=== PATIENT | female | born 1970 | race Caucasian/White ===

== ENCOUNTER 2023-08-13 07:51 | Emergency (ER) | payer OTHER, SELFPAY ==
--- NOTE | ~2023-08-13 | CT_ITS ---
EXAMINATION: CT ABDOMEN AND PELVIS WITH CONTRAST CLINICAL INFORMATION: Abdominal pain and diarrhea COMPARISON: CT abdomen pelvis 12/10/2014 TECHNIQUE: Multidetector volumetric images were obtained from the superior aspect of the liver through the pubic symphysis following administration 85 mL of Omnipaque 350 intravenous contrast. Sagittal and coronal reformatted images were obtained on the technologist's workstation. Oral contrast: No This CT examination was performed using dose optimization techniques as appropriate, variously including the following: *Automated exposure control *Adjustment of mA and/or kV according to patient size (this includes techniques or standardized protocols for targeted exams where dose is matched to indication/reason for exam; i.e. extremities or head) *Use of iterative reconstruction technique DLP: 1326 mGy-cm FINDINGS: LUNG BASES: The visualized lung bases are unremarkable. LIVER, GALLBLADDER, AND BILIARY TREE: The liver is normal in size, shape, and attenuation. There is a small 1 cm water density mass in the right lobe of the liver (502:369) consistent with a benign cyst. No worrisome solid focal hepatic lesion or biliary ductal dilatation is present. The gallbladder is unremarkable with no evidence of radiopaque gallstones, gallbladder wall thickening, or obvious pericholecystic inflammatory changes. PANCREAS: Unremarkable. SPLEEN: Spleen is mildly enlarged at 13 cm. ADRENAL GLANDS: Unremarkable. KIDNEYS AND URETERS: A large staghorn type calculus is present in the left renal pelvis measuring 3.0 x 1.9 x 3.2 cm, extending into the upper pole as well as lower and mid pole infundibula. The calculus is heterogeneous with a higher density center measuring 11r30 Hounsfield units with the majority of the calculus measuring about 460 Hounsfield units but with a higher attenuation rim. There is a rounded 5 mm calculus seen not related to the staghorn in the lower pole. Mild inflammatory changes are seen around the renal pelvis. Some mild fullness of the intrarenal collecting system is noted. No right-sided calculi. There is a probable Bosniak class II lower pole exophytic cortical renal cyst measuring 15-30 Hounsfield units with a tiny punctate area of higher attenuation in the wall (see echavarria image). At the time of the 2014 CT scan this was seen and measured 1.3 cm (601:81). BLADDER: Unremarkable. GASTROINTESTINAL TRACT: The small and large bowel are unremarkable. The appendix is unremarkable. ABDOMINAL WALL: No significant hernia is appreciated. LYMPH NODES: Some small periportal lymph nodes are seen but there is no retroperitoneal lymphadenopathy. VASCULAR: Unremarkable. PELVIC VISCERA: The uterus and adnexa are unremarkable. OSSEOUS STRUCTURES: Unremarkable. CT/CT abdomen pelvis w IV con IMPRESSION: 1. Large staghorn type calculus in the left renal pelvis with some mild inflammatory changes around the renal pelvis and mild fullness of the intrarenal collecting system. 2. Other incidental findings as described above including benign hepatic cyst, mild splenomegaly and Bosniak class II exophytic left lower pole renal cyst which needs no additional imaging or follow-up. Fleischner guidelines were followed.
[2023-08-13 07:59] VITALS: BP 133/70; PULSE 78; RESP 19; TEMP 36.4; O2SAT 99; BMI 44.8
--- NOTE | 2023-08-13 08:20 | ED_ITS ---
HPI - Nausea/Vomiting/Diarrhea General Chief complaint: Nausea/Vomiting/Diarrhea Stated complaint: diarrhea Time Seen by Provider: 08/13/23 08:13 Source: patient Mode of arrival: ambulatory Limitations: no limitations History of Present Illness HPI Narrative: 52 yo female with PMH of prior cardiac repair in 1974 and hx of DM,, HTN, HLD here with c/o n/v x 1 and diarrhea daily since eating curried beef at home her made. no travel, antibiotics, abdominal pain, fevers, bloody stool. She is having 4+ stools a day and canot take it. She has not had this before. MD elicited complaint: nausea, vomiting and diarrhea Onset (ago): day(s) (Thursday ) Description of vomiting: watery Description of diarrhea: watery Associated nausea: Yes Associated abdominal pain: No Location of pain: none Severity: mild Exacerbating factors: eating Relieving factors: none Context: possible food poisoning Associated symptoms: loss of appetite, malaise and nausea/vomiting Related Data Previous Rx's Medication Instructions Recorded cefuroxime axetil 500 mg tablet 500 mg PO BID 7 days #14 tabs 08/13/23 ondansetron 4 mg disintegrating 4 mg PO Q8H PRN nausea and 08/13/23 tablet vomiting #20 tabs Allergies Allergy/AdvReac Type Severity Reaction Status Date / Time FISH Allergy Unknown Anaphylaxis Uncoded 08/13/23 07:59 Review of Systems 2 Review of Systems: Constitutional : No Weight loss, No Fever, No Chills ENT/Mouth : No sore throat, No Rhinorrhea Eyes: No Swelling, No Redness Cardiovascular : No Chest Pain, No SOB, NoEdema Respiratory : No Cough, No Sputum, No Wheezing Gastrointestinal : Positive Nausea, Positive Vomiting, positive Diarrhea, no abdominal Pain, No Hematochezia, No Melena Genitourinary : No Dysuria, No Urinary Frequency, No Hematuria, No Urgency Musculoskeletal : No joint pain, No Myalgias, No Joint Swelling Skin : No Skin Lesions, No rash Neuro : No Weakness, No Numbness, No Dizziness, No Headache Psych : No Anxiety/Panic, No Depression Heme/Lymph: No Bruising, No Lymphadenopathy Endocrine : No Polyuria, No Polydipsia All other systems reviewed and are negative. Gastrointestinal: Gastrointestinal: Reports nausea PMFSH Past Medical History Attestation statement: The following information was validated with the patient. Medical History History of kidney stones History of in vitro fertilization Hx of ectopic Surgical History History of open heart surgery Family History Family History (Updated 10/02/20 @ 16:04 by Delia Hernandez MA) Father Cancer Mother Epilepsia Dementia Brother Drug abuse Bipolar 1 disorder Son No problems noted. Social History Social History (Updated 10/02/20 @ 16:04 by Delia Hernandez MA) Alcohol intake: never Advance Directives: No Physical Exam 2 Vital Signs: Vital Signs: Last Vital Signs Temp 97.5 F 08/13/23 07:59 Pulse 78 08/13/23 07:59 Resp 19 08/13/23 07:59 BP 133/70 08/13/23 07:59 Pulse Ox 99 08/13/23 07:59 O2 Del Method Room Air 08/13/23 07:59 BMI result Body Mass Index 44.8 Appearance: Alert. Oriented X3. No acute distress. Eyes: Pupils equal, round and reactive to light. ENT: Pharynx normal. Neck: Normal inspection. Neck supple. CVS: Normal heart rate and rhythm. Pulses normal. Respiratory: No respiratory distress. Breath sounds normal. Abdomen: Soft and nontender. Skin: Skin warm and dry. Normal skin color. Normal skin turgor. Extremities: No lower extremity edema. No calf ttp Neuro: Oriented X 3. No motor deficit. No sensory deficit. Course Course Course Narrative: CBC is showing signs of dehydration, WBC count likely due to dehydration as all cell lines are elevated - not due to infection or severe sepsis Reevaluation(s) Reevaluation #1: 2L of IVF ordered, staghorn calculus at this time will obtain lactic acid cultures, give IV ceftriaxone - possible infection suspected 1145am. Reevaluation #2: no diarrhea here feels better, tolerating PO, no colitis Medications Administered Discontinued Medications Generic Name Dose Route Start Last Admin Trade Name Freq PRN Reason Stop Dose Admin Famotidine 20 mg 08/13/23 08:36 08/13/23 09:40 Famotidine/Pf 20 Mg/2 Ml Vial IVPUSH 08/13/23 08:37 20 mg ONCE ONE Administration Sodium Chloride 1,000 mls @ 999 mls/hr 08/13/23 08:45 08/13/23 11:32 Ns IVCONT 08/13/23 09:45 Infused .Q1H1M NUBIA Infusion Sodium Chloride 1,000 mls @ 999 mls/hr 08/13/23 09:45 08/13/23 12:18 Ns IV 08/13/23 10:45 Infused .Q1H1M NUBIA Infusion Ceftriaxone Sodium 1 gm/ 50 mls @ 100 mls/hr 08/13/23 11:39 08/13/23 12:55 Sodium Chloride IV 08/13/23 12:08 100 mls/hr ONCE ONE Administration Iohexol 85 ml 08/13/23 10:12 08/13/23 10:13 Iohexol 350 Mg/Ml 100 Ml Infus..Btl IV 08/13/23 10:13 85 ml ONCE ONE Administration Ondansetron HCl 4 mg 08/13/23 08:36 08/13/23 09:38 Ondansetron Hcl 4 Mg/2 Ml Vial IVPUSH 08/13/23 08:37 Not Given ONCE ONE Medical Decision Making Medical Decision Making MDM Narrative: 52 yo female with PMH of prior cardiac repair in 1974 and hx of DM,, HTN, HLD here with c/o diarrhea and n/v after eating curried beef at home no other infectious sources or abx use. Will obtain basic labs, hydrate, CT scan for possible colitis though this should be self limited in non immunocompromised patient and stool studies. No abdominal ttp on exam. 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 08/13/23 09:31 08/13/23 09:31 Labs: Lab Results 08/13/23 08/13/23 08/13/23 Range/Units 09:31 11:48 12:52 WBC 15.0 H (4.8-10.8) X10*3/uL RBC 6.54 H (4.20-5.50) X10*6/uL Hgb 16.2 H (12.0-16.0) g/dl Hct 51.6 H (37.0-47.0) % MCV 78.9 L (80.0-98.0) fL MCH 24.8 L (27.0-33.0) pg MCHC 31.4 (31.0-35.0) g/dl RDW 16.6 H (11.0-16.0) % Plt Count 360 (160-400) X10*3/uL MPV 10.0 (9.4-12.3) fL Immature Gran % (Auto) 0.3 (0.0-0.4) % Neut % (Auto) 80.0 H (45-73) % Lymph % (Auto) 12.6 L (20-40) % [place] % (Auto) 3.4 (2-11) % Eos % (Auto) 3.4 (0-4) % Baso % (Auto) 0.3 (0-2) % Lymph # (Auto) 1.9 (1.2-4.9) X10*3/uL [place] # (Auto) 0.5 (0.1-1.2) X10*3/uL Eos # (Auto) 0.5 H (0.0-0.4) X10*3/uL Baso # (Auto) 0.0 (0.0-0.2) X10*3/uL Abs Immat Gran (auto) 0.05 H (0.00-0.03) X10*3/uL Absolute Neuts (auto) 12.0 H (2.0-8.3) x10*3/uL Absolute Nucleated RBC 0.000 (0.0-0.012) X10*3/uL Nucleated RBC % (auto) 0.0 (0.0-0.2) /100WBC Sodium 139 (135-145) mmol/L Potassium 3.7 (3.3-5.1) mmol/L Chloride 112 H (96-108) mmol/L Carbon Dioxide 19 L (22-29) mmol/L Anion Gap 12 (12-20) BUN 29 H (9-16) mg/dL Creatinine 1.40 (0.5-1.4) mg/dL Estim Creat Clear Calc 63.8 Estimated GFR 39 Random Glucose 191 H (60-115) mg/dL Lactic Acid 1.0 (0.5-2.0) mmol/L Calcium 9.7 (8.4-10.2) mg/dL Magnesium 1.9 (1.6-2.6) mg/dL Total Bilirubin 0.6 (0.0-1.0) mg/dL Direct Bilirubin 0.2 (0.0-0.5) mg/dL AST 11 (5-31) U/L ALT 13 (0-31) U/L Alkaline Phosphatase 115 (39-117) U/L Total Protein 8.2 H (6.5-8.0) g/dL Albumin 4.3 (3.5-5.0) g/dL Lipase 49 (8-78) U/L Urine Color Yellow Urine Appearance Clear Urine pH 5.5 (5.0-9.0) Ur Specific [place] >= 1.030 H (1.005-1.025) Urine Protein 30 (1+) H (Neg-Trace) mg/dL Urine Glucose (UA) Negative (Negative) mg/dL Urine Ketones Negative (Negative) mg/dL Urine Blood Moderate (2+) H (Negative) Urine Nitrite Negative (Negative) Ur Leukocyte Esterase Negative (Negative) Urine RBC 6-10 H (0-2) /HPF Urine WBC 6-10 H (0-5) /HPF Ur Squamous Epith Cells 6-10 (0-2) /HPF Urine Bacteria Trace (None Seen) Hyaline Casts 3-5 (0-2) /LPF Granular Casts Present Independent Interpretation I performed an independent interpretation of an: CT Scan (staghorn no colitis) Radiology Impression Discussion of test interpretation with radiology: I have reviewed the radiologist's reading. External Record Review External record reviewed: Outpatient record Prescription Management I considered prescription management with: Antibiotic and Other Discharge Plan Discharge Clinical Impression: Dehydration, Staghorn calculus, Acute UTI Diarrhea Qualifiers: Diarrhea type: unspecified type Qualified Code(s): R19.7 - Diarrhea, unspecified Patient Disposition: Home, Self-Care Instructions: Kidney Stones (ED), Urinary Tract Infection in Women (DC), Acute Diarrhea (ED) Additional Instructions: take a probiotic over the counter. drink plenty of fluids. bland diet for 48 hours then slowly advance. return for fevers, severe pain, more than 6 loose stools a day, weakness, dizziness, vomiting, or any other concerns. Prescriptions: New cefuroxime axetil 500 mg tablet 500 mg PO BID 7 Days Qty: 14 0RF ondansetron 4 mg tablet,disintegrating 4 mg PO Q8H PRN (Reason: nausea and vomiting) Qty: 20 0RF Referrals: Justo Rodríguez MD [Physician] - (call for appointment please call today to schedule) Stand Alone Forms: Work/School Release
[2023-08-13 09:36] LABS: MANUAL DIFF FLAG NO
[2023-08-13 09:38] LABS: Basophils Percent Auto 0.3 % (0-2); Eosinophils Absolute Auto 0.5 X10*3/uL (0.0-0.4); Eosinophils Percent Auto 3.4 % (0-4); Hematocrit 51.6 % (37.0-47.0); Hemoglobin 16.2 g/dl (12.0-16.0); Imm Gran Abs Auto 0.05 X10*3/uL (0.00-0.03); Imm Gran Pct Auto 0.3 % (0.0-0.4); Lymphocytes Absolute Auto 1.9 X10*3/uL (1.2-4.9); Lymphocytes Percent Auto 12.6 % (20-40); Mean Corpuscular HGB Conc 31.4 g/dl (31.0-35.0); Mean Corpuscular Hemoglobin 24.8 pg (27.0-33.0); Mean Corpuscular Volume 78.9 fL (80.0-98.0); Monocytes Absolute Auto 0.5 X10*3/uL (0.1-1.2); Monocytes Percent Auto 3.4 % (2-11); Platelet Count 360 X10*3/uL (160-400); Red Blood Count 6.54 X10*6/uL (4.20-5.50); Red Cell Distribution Width 16.6 % (11.0-16.0)
[2023-08-13] MEDS: 0.9 % Sodium Chloride 1,000 ML 999 ML IVCONT (09:38)
[2023-08-13] MEDS: Famotidine/PF 20 MG/2 ML VIAL IVPUSH (09:40)
[2023-08-13 10:00] VITALS: BP 138/78; PULSE 67; RESP 20; TEMP 36.9; O2SAT 95
[2023-08-13 10:00] LABS: Alanine Aminotransferase 13 U/L (0-31); Albumin Level 4.3 g/dL (3.5-5.0); Alkaline Phosphatase 115 U/L (39-117); Anion Gap 12 (12-20); Aspartate Amino Transferase 11 U/L (5-31); Bilirubin Direct 0.2 mg/dL (0.0-0.5); Bilirubin Total 0.6 mg/dL (0.0-1.0); Blood Urea Nitrogen 29 mg/dL (9-16); Calcium 9.7 mg/dL (8.4-10.2); Carbon Dioxide 19 mmol/L (22-29); Chloride 112 mmol/L (96-108); Creatinine Clr Calc Pharmacy 63.8; Estimated Glomerular Filt Rate 39; Glucose Random 191 mg/dL (60-115); Lipase 49 U/L (8-78); Magnesium 1.9 mg/dL (1.6-2.6); Potassium 3.7 mmol/L (3.3-5.1); Sodium 139 mmol/L (135-145); Total Protein 8.2 g/dL (6.5-8.0)
[2023-08-13] MEDS: iohexoL 350 MG/ML 100 ML INFUS..BTL 85 ML IV (10:13)
[2023-08-13] MEDS: 0.9 % Sodium Chloride 1,000 ML 999 ML IV (10:31)
[2023-08-13] MEDS: cefTRIAXone sodium 1 GM in 0.9 % Sodium Chloride 50 ML IV (12:55)
[2023-08-13 13:01] LABS: Appearance Urine Clear; Color Urine Yellow; Glucose Urine UA Negative (Negative); Leukocyte Esterase Urine Negative (Negative); Nitrite Urine Negative (Negative); PH 5.5 (5.0-9.0); Specific Gravity - Urine >= 1.030 (1.005-1.025); UMIC TRIGGER UACC YES; Urine Blood Moderate (2+) (Negative); Urine Ketones Negative (Negative); Urine Protein 30 (1+) mg/dL (Neg-Trace)
[2023-08-13 13:11] LABS: Bacteria Urine Trace (None Seen); Granular Casts Urine Present; UACC Culture Trigger YES
[2023-08-13 14:00] VITALS: BP 137/72; PULSE 72; RESP 18; TEMP 36.7; O2SAT 94
== END 2023-08-13 14:12 | disposition home or self-care (01) ==
PROVIDERS: Emergency Provider Emergency Medicine; PCP Internal Medicine
DX: N20.0 Calculus of kidney (principal); N39.0 Urinary tract infection, site not specified; E86.0 Dehydration; R11.2 Nausea with vomiting, unspecified; R19.7 Diarrhea, unspecified; E11.9 Type 2 diabetes mellitus without complications; I10 Essential (primary) hypertension; E78.5 Hyperlipidemia, unspecified
CPT/HCPCS: 36415; 74177; 80048; 80076; 81001; 81003; 83605; 83690; 83735; 85025; 87040; 87086; 87147; 96361; 96365; 96375; 99284; J0696; Q9967

== ENCOUNTER 2023-09-17 13:47 | Outpatient (AMB) | payer OTHER, SELFPAY ==
--- NOTE | 2023-09-17 13:48 | A.OFFVIS_ITS ---
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 09/17/2023? She is present today for an evaluation of renal calculus. The patient has a past medical history of prior cardiac repair in 1974 (She had a hole in the ventricle of her heart that was repaired.), diabetes, hypertension, HLD, and sleep apnea. Patient states that she has a history of kidney stones. She had seen urology Dr. Brown at [facility] in [facility] who treated her right kidney and removed several kidney stones with surgical procedures ureteroscopy. She was seen in ER for acute urinary tract infection on 08/13/2023. She was discharged on antibiotics which helped her. The patient was advised to take probiotic over the counter, drink plenty of fluids, bland diet for 48 hours then slowly advance at that time. She was advised to return for fevers, severe pain, more than 6 loose stools a day, weakness, dizziness, vomiting, or any other concerns during that time. The patient was referred to the urology office. Patient is not on any blood thinners at this time. I reviewed the urine culture results from 08/13/2023 which came back 10,000 to 50,000 cfu/ml mixed bacterial mary and Strep agalactiae (Grp B) < 10,000 cfu/mL. I reviewed the CT abdomen/pelvis results from 08/13/2023 revealed large staghorn type calculus in the left renal pelvis with some mild inflammatory changes around the renal pelvis and mild fullness of the intrarenal collecting system. Other incidental findings as described above including benign hepatic cyst, mild splenomegaly and Bosniak class II exophytic left lower pole renal cyst. Evaluation today?UA? leukocytes: negative; blood: 2 +. Plan: I have discussed treatment options do include ureteroscopy versus PCNL, and I will discuss the CAT scan results with Dr. Bonilla for further surgical management. Patient will need medical clearance from her PCP prior to surgery due to her multiple medical conditions. [facility] Medical History History of kidney stones History of in vitro fertilization Surgical History Hx of ectopic History of open heart surgery Family History Father Cancer Mother Epilepsia Dementia Brother Drug abuse Bipolar 1 disorder Son No problems noted. Alcohol intake: never Patient Tobacco Use Status: Never used Tobacco Review of Systems Const All systems reviewed & are unremarkable except as noted in HPI and below Reports no additional complaints Eyes Reports no additional complaints ENT Reports no additional complaints Card Denies dyspnea Resp Denies cough and Denies dyspnea GI Reports no additional complaints Reports no additional complaints Musc Reports no additional complaints Skin/Breast Denies rash and Denies unusual bruising Neuro Reports no additional complaints Psych Reports no additional complaints Endo Reports no additional complaints Jose/Lymph Reports no additional complaints Aller/Immun Reports no additional complaints Physical Exam Const General: cooperative, healthy appearing and no acute distress Nutritional Appearance: overweight Orientation/consciousness: patient oriented x3 HEENT Head: Yes normal to inspection, Yes normocephalic and Yes atraumatic Eyes Conjunctivae: conjunctivae normal Neck Neck: Yes normal visual inspection and Yes trachea midline Chest Chest palpation & inspection: normal inspection of the chest Resp Effort & Inspection: normal respiratory effort Cardio Rate: regular rate GI Inspection: Yes normal to inspection Skin General skin exam: no rashes or lesions noted Neuro General: patient oriented x3 Extrem General: No edema Psych Appearance: grossly normal Results AMB Urinalysis, Automated UA Leukoctes 0 Luke/uL Last Edit by CECILE Staton on 09/17/23 14:01 UA Nitrite Negative Last Edit by Alberto Garrido [facility] on 09/17/23 14:01 UA Urobilinogen 0.2 mg/dL Last Edit by CECILE Staton on 09/17/23 14:0 1 UA Protein 15 mg/dL Last Edit by Alberto Garrido [facility] on 09/17/23 14:01 UA pH 6.0 Last Edit by Alberto Garrido Sharmila on 09/17/23 14:01 UA Blood 200 Tac[place]/uL Last Edit by Alberto Garrido Sharmila on 09/17/23 14:01 3+ Alberto Garrido 09/17/23 14:01 UA Specific [place] 1.030 Last Edit by CECILE Staton on 09/17/23 14: 01 UA Ketone Negative Last Edit by Alberto Garrido Sharmila on 09/17/23 14:01 UA Bilirubin 0 mg/dL Last Edit by Alberto Garrido Sharmila on 09/17/23 14:01 UA Glucose 0 mg/dL Last Edit by Alberto Garrido [facility] on 09/17/23 14:01 Results Reviewed Results Reviewed: Laboratory Last Values Urine pH (Auto) 6.0 09/17/23 13:49 Specific [place] (Auto) 1.030 09/17/23 13:49 Urine Protein (Auto) 15 mg/dL 09/17/23 13:49 Glucose (UA)(Auto) 0 mg/dL 09/17/23 13:49 Urine Ketones (Auto) Negative 09/17/23 13:49 Urine Blood (Auto) 200 [place]/uL 09/17/23 13:49 Urine Nitrite (Auto) Negative 09/17/23 13:49 Urine Bilirubin (Auto) 0 mg/dL 09/17/23 13:49 Urine Urobilinogen (Auto) 0.2 mg/dL 09/17/23 13:49 Leukocyte Esterase (Auto) 0 Luke/uL 09/17/23 13:49 Date of Service: 08/13/23 EXAMINATION: CT ABDOMEN AND PELVIS WITH CONTRAST CLINICAL INFORMATION: Abdominal pain and diarrhea COMPARISON: CT abdomen pelvis 12/10/2014 FINDINGS: LUNG BASES: The visualized lung bases are unremarkable. LIVER, GALLBLADDER, AND BILIARY TREE: The liver is normal in size, shape, and attenuation. There is a small 1 cm water density mass in the right lobe of the liver (502:369) consistent with a benign cyst. No worrisome solid focal hepatic lesion or biliary ductal dilatation is present. The gallbladder is unremarkable with no evidence of radiopaque gallstones, gallbladder wall thickening, or obvious pericholecystic inflammatory changes. PANCREAS: Unremarkable. SPLEEN: Spleen is mildly enlarged at 13 cm. ADRENAL GLANDS: Unremarkable. KIDNEYS AND URETERS: A large staghorn type calculus is present in the left renal pelvis measuring 3.0 x 1.9 x 3.2 cm, extending into the upper pole as well as lower and mid pole infundibula. The calculus is heterogeneous with a higher density center measuring 11r30 Hounsfield units with the majority of the calculus measuring about 460 Hounsfield units but with a higher attenuation rim. There is a rounded 5 mm calculus seen not related to the staghorn in the lower pole. Mild inflammatory changes are seen around the renal pelvis. Some mild fullness of the intrarenal collecting system is noted. No right-sided calculi. There is a probable Bosniak class II lower pole exophytic cortical renal cyst measuring 15-30 Hounsfield units with a tiny punctate area of higher attenuation in the wall (see echavarria image). At the time of the 2014 CT scan this was seen and measured 1.3 cm (601:81). BLADDER: Unremarkable. GASTROINTESTINAL TRACT: The small and large bowel are unremarkable. The appendix is unremarkable. ABDOMINAL WALL: No significant hernia is appreciated. LYMPH NODES: Some small periportal lymph nodes are seen but there is no retroperitoneal lymphadenopathy. VASCULAR: Unremarkable. PELVIC VISCERA: The uterus and adnexa are unremarkable. OSSEOUS STRUCTURES: Unremarkable. IMPRESSION: 1. Large staghorn type calculus in the left renal pelvis with some mild inflammatory changes around the renal pelvis and mild fullness of the intrarenal collecting system. 2. Other incidental findings as described above including benign hepatic cyst, mild splenomegaly and Bosniak class II exophytic left lower pole renal cyst which needs no additional imaging or follow-up. Ordered: Urine Culture Procedure Result Verified Site Urine Culture Final 08/14/23-1231 Report Result 10,000 to 50,000 cfu/ml Mixed bacterial mary characteristic of urogenital contamination. Organism 1 Strep agalactiae (Grp B) Quant < 10,000 cfu/mL Susc N/A Susceptibility not routinely performed on this isolate Assessment & Plan Assessment & Plan (1) Staghorn calculus: Code(s): N20.0 - Calculus of kidney (2) Kidney stone on left side: Code(s): N20.0 - Calculus of kidney (3) Complex renal cyst: Code(s): N28.1 - Cyst of kidney, acquired Plan I have discussed treatment options do include ureteroscopy versus PCNL, and I will discuss the CAT scan results with Dr. Bonilla for further surgical management. Patient will need medical clearance from her PCP prior to surgery due to her multiple medical conditions. Orders: Orders AMB Urinalysis Automated 09/17/23 Z13.9 - Encounter for screening, unspecified Patient Instructions: The patient had an opportunity to ask questions regarding treatment plan. All questions were answered. Imaging, Laboratory studies and physical exam results were discussed and reviewed in detail. No major barriers to understanding were identified. The patient expressed understanding and agreement with the above t reatment plan. The patient is aware they should contact our office by phone for worsening of their current condition or the appearance of new symptoms. Compliance is encouraged with any medications and followup testing that is ordered. It is a privilege to be allowed the opportunity to participate in the urologic care of your patient. If you have any questions or concerns regarding treatment for the above conditions please do not hesitate to contact me. The office telephone contact is [phone]. This note is constructed in part using voice recognition software. While every effort has been made to ensure accuracy family and consumer science professor errors may have been included. Yours sincerely, Justo Rodríguez MD Coding Level of Care Code New Pt Level 4 (65627) Diagnoses Staghorn calculus N20.0 Kidney stone on left side N20.0 Complex renal cyst N28.1
== END 2023-09-17 14:43 | disposition home or self-care (01) ==
PROVIDERS: PCP Internal Medicine; Visit Provider Urology
DX: N20.0 Calculus of kidney (principal); N28.1 Cyst of kidney, acquired
CPT/HCPCS: 99204

== ENCOUNTER → 2023-09-17 13:47 | Outpatient (BNVA) | payer OTHER, SELFPAY | PROVIDERS: PCP Internal Medicine; Visit Provider Urology | DX: N20.0 Calculus of kidney (principal); N28.1 Cyst of kidney, acquired | CPT/HCPCS: 81003 ==

== ENCOUNTER 2023-10-23 14:47 | Outpatient (AMB) | payer OTHER, SELFPAY ==
--- NOTE | 2023-10-23 15:23 | A.OFFVIS_ITS ---
Intake Intake Visit Reasons: Discuss surgical plan Allergies sulfamethoxazole [From Bactrim] Allergy (Unknown, Verified 09/17/23 13:56) Unknown trimethoprim [From Bactrim] Allergy (Unknown, Verified 09/17/23 13:56) Unknown FISH Allergy (Unknown, Uncoded 08/13/23 07:59) Anaphylaxis HPI HPI Comments History of Present Illness Details Gabriela is a pleasant female. She is a patient of Dr. Dylan Avalos. She is seen for the following urologic conditions - complex nephrolithiasis Here for evaluation of complex left-sided renal stone in setting of extensive medical comorbidities including diabetes, hypertension, sleep apnea Nephrolithiasis Longstanding Multiple procedures with Dr Brown Seen in [place] [facility] room 08/13/23 with pyelonephritis. Treated with antibiotics Imaging 08/15 - large staghorn type calculus in t he left renal pelvis with some mild inflammatory changes around the renal pelvis and mild fullness of the intrarenal collecting system. Other incidental findings as described above including benign hepatic cyst, mild splenomegaly and Bosniak class II exophytic left lower pole renal cyst Discussion regarding procedure. Typically this would be approached with percutaneous nephrolithotomy. Given her body habitus and other medical comorbidities would recommend ureteroscopy and this may require more than 1 potential procedure [facility] Medical History (Updated 12/20/23 @ 20:03 by Dangelo Bonilla MD) HLD (hyperlipidemia) Diabetes HTN (hypertension) Sleep apnea History of kidney stones History of in vitro fertilization Surgical History (Updated 12/17/23 @ 07:56 by Carmenza Saul RN) History of ureteroscopy Hx of ectopic History of open heart surgery Family History Father Cancer Mother Epilepsia Dementia Brother Drug abuse Bipolar 1 disorder Son No problems noted. Social History Alcohol intake: never Patient Tobacco Use Status: Never used Tobacco Review of Systems Const Denies chills and Denies fever(s) Card Reports no additional complaints and Denies syncope Resp Denies cough GI Denies abdominal pain and Denies heartburn Reports as per HPI and Denies change in libido Neuro Denies syncope Psych Denies change in libido Endo Denies change in libido Physical Exam Const General: cooperative, healthy appearing, comfortable and no acute distress Orientation/consciousness: patient oriented x3 HEENT Face and sinus: Yes normal facial exam Mouth: moist mucous membranes Neck Neck: Yes normal visual inspection, Yes full ROM and Yes trachea midline Chest Chest palpation & inspection: normal inspection of the chest Resp Effort & Inspection: normal respiratory effort, able to speak in complete sentences and no respiratory distress GI Inspection: Yes normal to inspection Back/Spine/Pelvis Cervical Spine: normal cervical lordosis Thoracic/Lumbar Spine: thoracic and lumbar spine normal to inspection Skin General skin exam: no rashes or lesions noted Neuro General: patient oriented x3, gait normal, tone normal and moves all extremities Extrem General: Yes normal to inspection and Yes capillary refill normal Assessment & Plan Assessment & Plan (1) Staghorn calculus: Code(s): N20.0 - Calculus of kidney (2) Pyelonephritis: Code(s): N12 - Tubulo-interstitial nephritis, not specified as acute or chronic Plan Risks, benefits and alternatives to therapy were discussed. These include but are not limited to infection, bleeding, damage to local organs and tissues, need for further interventions. Anesthetic risks regarding cardiac arrhythmia, blood clots, and potential mortality were discussed. The patient understands the typical recovery time and the outpatient nature of the procedure. After consideration of these risks the patient gives full informed consent and they wish to move ahead with the procedure. Left ureteroscopy with laser lithotripsy. Possible staged procedure. Suppression antibiotics Patient Instructions: Imaging studies, laboratory and physical exam results were discussed and reviewed in detail. No major barriers to patient understanding were identified. An opportunity to ask questions regarding the treatment plan was provided. All questions were answered. The patient expressed understanding and agreement with the above treatment plan. The patient is aware they should contact our office by phone for worsening of their current condition or the appearance of new urologic symptoms. Compliance is encouraged with any medications and followup testing that is ordered. It is a privilege to participate in the urologic care of your patient. If you have any questions or concerns regarding treatment for the above conditions, or other urologic issues, please do not hesitate to contact me. The office telephone contact is [phone]. This note is constructed using voice recognition software. While every effort has been made to ensure accuracy chief investment officer errors may have been included. Yours sincerely, Dr Dangelo Bonilla MD, [facility] - Urology Providers of Expert, Compassionate Care for the Genitourinary System Coding Level of Care Code Est Pt Level 4 (39975) Diagnoses Staghorn calculus N20.0 Pyelonephritis N12
== END 2023-10-23 15:27 | disposition home or self-care (01) ==
LOC: HO.HUSH 14:47
PROVIDERS: PCP Internal Medicine; Visit Provider Urology
DX: N20.0 Calculus of kidney (principal); N12 Tubulo-interstitial nephritis, not specified as acute or chronic
CPT/HCPCS: 99214

== ENCOUNTER → 2023-10-23 14:47 | Outpatient (BNVA) | payer OTHER, SELFPAY | PROVIDERS: PCP Internal Medicine; Visit Provider Urology ==

== ENCOUNTER 2023-12-28 11:26 | Day surgery (SDC) | payer OTHER, SELFPAY ==
--- NOTE | 2023-12-25 11:45 | HO.ANESPROP2 ---
Documented by User: Gisele Singh NP 12/25/23 11:48 HPI - Anesthesia Eval Consult details Narrative: 53yo F for Bilateral Cystoscopy, Ureteroroscopy, Retro, Laser,with poss stent Medically cleared Anesthesia Pre-Procedure Meds Is the patient on any of the following meds?: Dulaglutide (Trulicity) PMFSH Active Problems Active Problems: All Active Problems (Updated 12/20/23 @ 20:03 by Dangelo Bonilla MD) Pyelonephritis (Acute) Complex renal cyst (Acute) Kidney stone on left side (Acute) Past Medical History Medical History HLD (hyperlipidemia) Diabetes HTN (hypertension) Sleep apnea History of kidney stones History of in vitro fertilization Family History Family History Father Cancer Mother Epilepsia Dementia Brother Drug abuse Bipolar 1 disorder Son No problems noted. Surgical History Surgical History History of ureteroscopy Hx of ectopic History of open heart surgery Social History Social History Alcohol intake: never Patient Tobacco Use Status: Never used Tobacco Use of substances other than those prescribed or required for medical reasons: No Are you DNR?: No Advance Directives: No Advance Directives Information Provided: Yes Meds Allergies Allergy/AdvReac Type Severity Reaction Status Date / Time sulfamethoxazole Allergy Unknown Unknown Verified 12/28/23 12:58 [From Bactrim] trimethoprim [From Bactrim] Allergy Unknown Unknown Verified 12/28/23 12:58 FISH Allergy Unknown Anaphylaxis Uncoded 12/28/23 12:58 Home Medications Medication Instructions Recorded Confirmed Last Taken Type albuterol sulfate 90 mcg/actuation 2 puff inhalation Q4-6H PRN 09/17/23 12/28/23 Unknown History aerosol inhaler (Ventolin HFA) Shortness Of Breath Or Wheezing budesonide-formoterol HFA 160 2 puff inhalation BID 09/17/23 12/28/23 Unknown History mcg-4.5 mcg/actuation aerosol inhaler (Symbicort) citalopram 40 mg tablet 40 mg PO DAILY 09/17/23 12/28/23 Unknown History dulaglutide 1.5 mg/0.5 mL 1.5 mg subcut QWEEK 09/17/23 12/28/23 Unknown History subcutaneous pen injector (Trulicity) lisinopril 20 mg tablet 20 mg PO DAILY 09/17/23 12/28/23 Unknown History meclizine 25 mg tablet 25 mg PO DAILY PRN Vertigo 09/17/23 12/28/23 Unknown History metformin 1,000 mg tablet 1,000 mg PO BID 09/17/23 12/28/23 Unknown History montelukast 10 mg tablet 10 mg PO DAILY 09/17/23 12/28/23 Unknown History norethindrone acetate 5 mg tablet 5 mg PO DAILY 09/17/23 12/28/23 Unknown History simvastatin 40 mg tablet 40 mg PO BEDTIME 09/17/23 12/28/23 Unknown History Exam Pertinent Lab Results Pertinent Lab Results: Laboratory Tests 08/13/23 09:31 WBC 15.0 H Hgb 16.2 H Hct 51.6 H Plt Count 360 Sodium 139 Potassium 3.7 Chloride 112 H Carbon Dioxide 19 L BUN 29 H Creatinine 1.40 Narrative Narrative: EKG 11/2023 SR @ 88 LAFB Low volt RSR' Consider anterior infarct Per provider interpret SR, no acute changes) Assessment and Plan Assessment Anesthesia Assessment: Chart Reviewed Documented by User: Mary Kate Plascencia MD 12/28/23 14:42 HPI - Anesthesia Eval Anesthesia Pre-Procedure Meds If Yes to any meds - educate patient: Pt education - increased risk of aspiration and Pt education - possibility of cancelled proc at provider's discretion PMFSH Past Medical History Medical History HLD (hyperlipidemia) Diabetes HTN (hypertension) Sleep apnea History of kidney stones History of in vitro fertilization Family History Family History Father Cancer Mother Epilepsia Dementia Brother Drug abuse Bipolar 1 disorder Son No problems noted. Family history of problems with anesthesia: No Surgical History Surgical History History of ureteroscopy Hx of ectopic History of open heart surgery History of Problems with Anesthesia: No Social History Social History Alcohol intake: never Patient Tobacco Use Status: Never used Tobacco Use of substances other than those prescribed or required for medical reasons: No Are you DNR?: No Advance Directives: No Advance Directives Information Provided: Yes Meds Allergies Allergy/AdvReac Type Severity Reaction Status Date / Time sulfamethoxazole Allergy Unknown Unknown Verified 12/28/23 12:58 [From Bactrim] trimethoprim [From Bactrim] Allergy Unknown Unknown Verified 12/28/23 12:58 FISH Allergy Unknown Anaphylaxis Uncoded 12/28/23 12:58 Home Medications Medication Instructions Recorded Confirmed Last Taken Type albuterol sulfate 90 mcg/actuation 2 puff inhalation Q4-6H PRN 09/17/23 12/28/23 Unknown History aerosol inhaler (Ventolin HFA) Shortness Of Breath Or Wheezing budesonide-formoterol HFA 160 2 puff inhalation BID 09/17/23 12/28/23 Unknown History mcg-4.5 mcg/actuation aerosol inhaler (Symbicort) citalopram 40 mg tablet 40 mg PO DAILY 09/17/23 12/28/23 Unknown History dulaglutide 1.5 mg/0.5 mL 1.5 mg subcut QWEEK 09/17/23 12/28/23 Unknown History subcutaneous pen injector (Trulicity) lisinopril 20 mg tablet 20 mg PO DAILY 09/17/23 12/28/23 Unknown History meclizine 25 mg tablet 25 mg PO DAILY PRN Vertigo 09/17/23 12/28/23 Unknown History metformin 1,000 mg tablet 1,000 mg PO BID 09/17/23 12/28/23 Unknown History montelukast 10 mg tablet 10 mg PO DAILY 09/17/23 12/28/23 Unknown History norethindrone acetate 5 mg tablet 5 mg PO DAILY 09/17/23 12/28/23 Unknown History simvastatin 40 mg tablet 40 mg PO BEDTIME 09/17/23 12/28/23 Unknown History Exam Airway Mallampati Class: III (thick neck) TM Dist: >3cm Neck ROM: Full Heart: rrr Lungs: cta Assessment and Plan Assessment Anesthesia Assessment: Anesthesia Plan Discussed Final Anesthetic Review Family History of Problems with Anesthesia: No History of Problems with Anesthesia: No NPO: Yes ASA Class: III Final Preanesthetic Review: No Changes in Pt Med Stat, Meds/Allgs Chart Reviewed and Consent Obtained/Reviewed Patient Risk: Intermediate Procedure Risk: Intermediate Anesthetic Plan Anesthetic Plan: GA Disposition: Standard PACU
[2023-12-28] VITALS (10 sets, daily range): BP systolic 142–182; BP diastolic 76–102; PULSE 77–87; RESP 16–20; TEMP 36.1–37.1; O2SAT 92–98; BMI 49.9
--- NOTE | ~2023-12-28 | FL_ITS ---
EXAMINATION: XR FLUOROSCOPY WITH IMAGES CLINICAL INFORMATION: Stone left. COMPARISON: CT abdomen and pelvis of 08/13/2023. TECHNIQUE: Fluoroscopy Supervised By: Dr. Dangelo Bonilla. Fluoroscopy Time: 21.4 seconds. Cumulative Dose: 15.08 mGy. DAP: N/A. Images: 3. FINDINGS: Fluoroscopic guidance was provided for procedure. A catheter is curved over the left mid to lower abdomen proximally with the distal aspect curled over the pelvis. Please refer to operative report for more detailed evaluation. FL/FL guidance in OR IMPRESSION: Fluoroscopic guidance was provided for procedure.
[2023-12-28 13:17] LABS: Glucose, Whole Blood 115 mg/dL (60-115)
[2023-12-28] MEDS: Lactated Ringers 1,000 ML 100 ML IVCONT (13:17)
--- NOTE | 2023-12-28 14:15 | MHC.SHP ---
Pre-Procedural Eval Section A - 24 Hr Update-Section A only Date of Service: 12/28/23 The patient is an INPATIENT: No Changes since office visit: No Cold of Flu in the past 2 weeks, No New Medical Problems, No Changes in Medication and No Patient answered all questions The patient has been examined within 24 hours of the surgical procedure. The History & Physical has been completed within 30 days and I have reviewed it.: No Section B - Complete if H&P > 30 days Chief Complaint: Calculus of kidney Details of Present Illness: Left large renal stone Relevant Family History (Specify if Yes): No Relevant Social History: None Present Medications: see Short Stay Collaborative assessment Medical History: No relevant PMH History of Previous Operations: Relevant previous surgery/procedure and date(s) Allergies: Allergies Allergy/AdvReac Type Severity Reaction Status Date / Time sulfamethoxazole Allergy Unknown Unknown Verified 12/28/23 12:58 [From Bactrim] trimethoprim [From Bactrim] Allergy Unknown Unknown Verified 12/28/23 12:58 FISH Allergy Unknown Anaphylaxis Uncoded 12/28/23 12:58 Review of Systems Sugical H&P ROS: Negative: Constitution, Cardiovascular, Respiratory, Neurological, Psychiatric, Hem-Onc, Allergic/Immunologic, Gastrointestinal, Genitourinary, Musculoskeletal, Integumentary, Endocrine and Eyes/Ears/Nose/Throat Exam Surgical H&P Exam: Normal: HEENT, Normal: Heart, Normal: Lungs, Normal: Extremities, Normal: Abdomen, Normal: Skin and Normal: Neurological Plan Diagnosis/Plan: Unchanged (Cystoscopy, left retrograde, left ureteroscopy with laser lithotripsy and stent placement) I have reviewed the history and physical and performed a pertinent physical examination on my patient. No changes have occurred unless specified. Time Spent With Patient Time: Total time managing care of this patient today ____ minutes.
--- NOTE | 2023-12-28 16:23 | P.OP_ITS ---
Operative Note Operative Note Date of Service: 12/28/23 Narrative: PreOperative Diagnosis: Left staghorn calculus greater than 2.5 cm Post Operative Diagnosis: Left staghorn calculus greater than 2.5 cm Procedure: - cystoscopy, left retrograde - left dilatation of ureteric orifice under fluoroscopy - left ureteroscopy, laser lithotripsy - 22 (200% longer than typical - 90 min vs 30 min) - left stent placement Surgeon: Dr Dangelo Bonilla Anesthesia: General Indications for procedure: Left 2.5 cm staghorn. Previous evaluation with Urology had indicated PCNL. She is over 300 lb and 5 ft 5 so recommend staged procedure with ureteroscopy Procedure: After informed consent was verified patient was brought to the operating placed in supine position. Anesthesia was administered per protocol. Patient was placed in modified dorsal lithotomy position and prepped and draped in a sterile fashion. Safety pause time-out and side of surgery confirmed. Antibiotics confirmed. 22 [place] cystoscope was inserted per urethra. Bladder was normal in its entirety. Both ureteric orifices were in normal position. The left ureteric orifice was cannulated and a retrograde examination was performed. Filling defect left renal pelvis. A Sensor guidewire was placed up to the level of the renal pelvis under fluorosc opy. The rigid cystoscope was removed and the inner cannula of ureteric access sheath was used under fluoroscopy to dilate the ureteric orifice. The ureteric access sheath was placed and the inner cannula with access wire removed. The digital flexible ureteral scope was placed. The disposable digital flexible ureteral scope and the suction sheath were used. The stone was encountered in the renal pelvis. Laser was used using a combination of the 260 and 360 nm holmium laser fiber. Proximally 90 minutes was spent lasering. This is 200% longer than typical. The stone was debulked approximately 85%. At the completion of the stone procedure a Sensor wire was placed back into the renal pelvis. A 6 [place] by 24 cm double-J stent was placed into the renal pelvis and bladder under a combination of fluoroscopy and direct visualization. The symphisis pubis was used as a radiographic marker to release the stent and good coil was seen within the bladder confirming position The bladder was emptied. The patient tolerated the procedure well and was extubated in the operating room, and transferred in stable condition to the recovery area. Pathology: stone debris Drains: stent
[2023-12-28] MEDS: Ketorolac Tromethamine 30 MG/ML VIAL IVPUSH (17:10)
[2023-12-28] MEDS: ondansetron HCL 4 MG/2 ML VIAL IVPUSH (17:10)
[2023-12-28 17:26] LABS: Glucose, Whole Blood 285 mg/dL (60-115)
[2023-12-28] MEDS: Phenazopyridine HCL 100 MG TABLET PO (18:21)
== END 2023-12-28 18:45 | disposition home or self-care (01) ==
PROVIDERS: PCP Internal Medicine; Visit Provider Urology
PROC: (CPT 52356; principal; 2023-12-28 14:10)
DX: N20.0 Calculus of kidney (principal); N12 Tubulo-interstitial nephritis, not specified as acute or chronic; Z87.442 Personal history of urinary calculi; E78.5 Hyperlipidemia, unspecified; I10 Essential (primary) hypertension; G47.30 Sleep apnea, unspecified; E11.9 Type 2 diabetes mellitus without complications; Z79.84 Long term (current) use of oral hypoglycemic drugs; Z79.85 Long-term (current) use of injectable non-insulin antidiabetic drugs; Z79.51 Long term (current) use of inhaled steroids; Z79.899 Other long term (current) drug therapy; Z88.2 Allergy status to sulfonamides; Z88.1 Allergy status to other antibiotic agents; Z98.890 Other specified postprocedural states
CPT/HCPCS: 52356; 82947; C1758; C1769; C2617; J0131; J1580; J1885; J1956; J2250; J2405; J2704; J3010; Q9967

== ENCOUNTER → 2023-12-28 11:26 | Outpatient (BNV) | payer OTHER, SELFPAY | PROVIDERS: PCP Internal Medicine; Visit Provider Urology | DX: N20.0 Calculus of kidney (principal) | CPT/HCPCS: 52356 ==

== ENCOUNTER 2024-01-21 06:44 | Outpatient (REF) | payer OTHER, SELFPAY ==
[2024-01-21 08:07] LABS: Appearance Urine Turbid; Color Urine Yellow; Glucose Urine UA Negative (Negative); Leukocyte Esterase Urine Moderate (2+) (Negative); Nitrite Urine Negative (Negative); PH 5.5 (5.0-9.0); UMIC TRIGGER UA YES; Urine Blood Large (3+) (Negative); Urine Ketones Negative (Negative); Urine Protein 100 (2+) mg/dL (Neg-Trace)
[2024-01-21 08:13] LABS: Bacteria Urine 2+ (None Seen); RBC Urine >20 /HPF (0-2); Squamous Epithelial Cell Urine >20 /HPF (0-2); WBC Urine >50 /HPF (0-5)
== END 2024-01-21 06:45 | disposition home or self-care (01) ==
LOC: HO.LAB 06:44
PROVIDERS: PCP Internal Medicine; Visit Provider Urology
DX: N39.0 Urinary tract infection, site not specified (principal)
CPT/HCPCS: 81001; 87086

== ENCOUNTER 2024-02-08 11:16 | Day surgery (SDC) | payer OTHER, SELFPAY ==
[2023-12-17 08:03] VITALS: BMI 49.1
[2024-02-08] VITALS (7 sets, daily range): BP systolic 156–188; BP diastolic 89–94; PULSE 76–86; RESP 18–22; TEMP 36.1–36.5; O2SAT 93–96; BMI 50.1
--- NOTE | ~2024-02-08 | FL_ITS ---
EXAMINATION: XR FLUOROSCOPY WITH IMAGES CLINICAL INFORMATION: Cystoscopy and left ureteroscopy. COMPARISON: Fluoroscopic guidance dated 01/06/2024; CT abdomen and pelvis dated 08/13/2023. TECHNIQUE: Fluoroscopy Supervised By: Dr. Dangelo Bonilla. Fluoroscopy Time: 47.9 seconds. Cumulative Dose: 38.29 mGy. Images: 5. FINDINGS: The submitted images show a pigtail catheter with tip coiled overlapping the left renal pelvis. A known left staghorn calculus is faintly visualized. On the final image, the catheter is removed. FL/FL guidance in OR IMPRESSION: Intraoperative fluoroscopy is provided during cystoscopy and left ureteroscopy. Please see the patient's Operative Report for full procedural details.
[2024-02-08 13:45] LABS: Glucose, Whole Blood 122 mg/dL (60-115)
[2024-02-08] MEDS: Lactated Ringers 1,000 ML 50 ML IVCONT (14:13)
--- NOTE | 2024-02-08 15:40 | MHC.SHP ---
Pre-Procedural Eval Section A - 24 Hr Update-Section A only Date of Service: 02/08/24 The patient is an INPATIENT: No Changes since office visit: No Cold of Flu in the past 2 weeks, No New Medical Problems, No Changes in Medication and No Patient answered all questions The patient has been examined within 24 hours of the surgical procedure. The History & Physical has been completed within 30 days and I have reviewed it.: No Section B - Complete if H&P > 30 days Chief Complaint: Calculus of kidney Details of Present Illness: Prior left ureteroscopy with laser lithotripsy. Here to remove stent and remove remaining stone. Relevant Social History: None Present Medications: see Short Stay Collaborative assessment Medical History: Significant History History of Previous Operations: Relevant previous surgery/procedure and date(s) Allergies: Allergies Allergy/AdvReac Type Severity Reaction Status Date / Time sulfamethoxazole Allergy Unknown Unknown Verified 12/28/23 12:58 [From Bactrim] trimethoprim [From Bactrim] Allergy Unknown Anaphylaxis Verified 02/08/24 13:31 FISH Allergy Unknown Anaphylaxis Uncoded 12/28/23 12:58 Review of Systems Sugical H&P ROS: Negative: Constitution, Cardiovascular, Respiratory, Neurological, Psychiatric, Hem-Onc, Allergic/Immunologic, Gastrointestinal, Genitourinary, Musculoskeletal, Integumentary, Endocrine and Eyes/Ears/Nose/Throat Exam Surgical H&P Exam: Normal: HEENT, Normal: Heart, Normal: Lungs, Normal: Extremities, Normal: Abdomen, Normal: Skin and Normal: Neurological Plan Diagnosis/Plan: Unchanged (Cystoscopy, left stent removal, left ureteroscopy with laser lithotripsy) I have reviewed the history and physical and performed a pertinent physical examination on my patient. No changes have occurred unless specified. Time Spent With Patient Time: Total time managing care of this patient today ____ minutes.
--- NOTE | 2024-02-08 16:35 | HO.ANESPROP2 ---
HPI - Anesthesia Eval Consult details Narrative: for cysto, retro, laser, stent PMFSH Active Problems Active Problems: All Active Problems (Updated 02/04/24 @ 10:32 by Carmenza Saul, RN) Pyelonephritis (Acute) Complex renal cyst (Acute) Kidney stone on left side (Acute) Past Medical History Medical History (Updated 02/04/24 @ 10:32 by Carmenza Saul RN) Asthma Benign paroxysmal positional vertigo Obesity Cataract CKD (chronic kidney disease) Depression HLD (hyperlipidemia) Diabetes HTN (hypertension) Sleep apnea History of kidney stones History of in vitro fertilization Family History Family History Father Cancer Mother Epilepsia Dementia Brother Drug abuse Bipolar 1 disorder Son No problems noted. Family history of problems with anesthesia: No Surgical History Surgical History (Updated 02/04/24 @ 10:32 by Carmenza Saul RN) H/O breast biopsy History of ureteroscopy Hx of ectopic History of open heart surgery History of Problems with Anesthesia: No Social History Social History Alcohol intake: never Patient Tobacco Use Status: Never used Tobacco Use of substances other than those prescribed or required for medical reasons: No Are you DNR?: No Advance Directives: No Advance Directives Information Provided: Yes Meds Allergies Allergy/AdvReac Type Severity Reaction Status Date / Time sulfamethoxazole Allergy Unknown Unknown Verified 12/28/23 12:58 [From Bactrim] trimethoprim [From Bactrim] Allergy Unknown Anaphylaxis Verified 02/08/24 13:31 FISH Allergy Unknown Anaphylaxis Uncoded 12/28/23 12:58 Active Medications: Current Medications Lactated Ringer's (Lr) 1,000 mls @ 50 mls/hr IVCONT .Q20H NUBIA Last Admin: 02/08/24 14:13 Dose: 50 mls/hr Home Medications Medication Instructions Recorded Confirmed Last Taken Type albuterol sulfate 90 mcg/actuation 2 puff inhalation Q4-6H PRN 09/17/23 02/08/24 Unknown History aerosol inhaler (Ventolin HFA) Shortness Of Breath Or Wheezing budesonide-formoterol HFA 160 2 puff inhalation BID 09/17/23 02/08/24 Unknown History mcg-4.5 mcg/actuation aerosol inhaler (Symbicort) citalopram 40 mg tablet 40 mg PO DAILY 09/17/23 02/08/24 Unknown History dulaglutide 1.5 mg/0.5 mL 1.5 mg subcut QWEEK 09/17/23 02/08/24 01/26/24 History subcutaneous pen injector (Trulicity) lisinopril 20 mg tablet 20 mg PO DAILY 09/17/23 02/08/24 Unknown History meclizine 25 mg tablet 25 mg PO DAILY PRN Vertigo 09/17/23 02/08/24 Unknown History metformin 1,000 mg tablet 1,000 mg PO BID 09/17/23 02/08/24 Unknown History montelukast 10 mg tablet 10 mg PO DAILY 09/17/23 02/08/24 Unknown History norethindrone acetate 5 mg tablet 5 mg PO DAILY 09/17/23 02/08/24 Unknown History simvastatin 40 mg tablet 40 mg PO BEDTIME 09/17/23 02/08/24 Unknown History Exam Height,Weight and Vital Signs: Height 5 ft 5 in Weight 136.531 kg Last Vital Signs Temp 97.5 F 02/08/24 13:43 Pulse 86 02/08/24 13:43 Resp 20 02/08/24 13:43 BP 156/93 H 02/08/24 13:43 Pulse Ox 96 02/08/24 13:43 O2 Del Method Room Air 02/08/24 13:43 Pertinent Lab Results Pertinent Lab Results: Laboratory Tests 02/08/24 13:41 POC Glucose 122 H Airway Mallampati Class: II TM Dist: <=3cm Neck ROM: Limited Loose/Missing/Broken Teeth: Yes, Upper and Lower Heart: ok Lungs: ok. Sat 96% room air Assessment and Plan Assessment Anesthesia Assessment: Anesthesia Plan Discussed and Chart Reviewed Final Anesthetic Review Family History of Problems with Anesthesia: No History of Problems with Anesthesia: No NPO: Yes ASA Class: III Final Preanesthetic Review: No Changes in Pt Med Stat, Meds/Allgs Chart Reviewed, Consent Obtained/Reviewed and Anes Risks/Benef Reviewed Patient Risk: High Procedure Risk: Low Anesthetic Plan Anesthetic Plan: GA and Agree w/ Assess. and Plan Disposition: Standard PACU
[2024-02-08] MEDS: Ketorolac Tromethamine 15 MG/ML VIAL IVPUSH (19:52)
[2024-02-08] MEDS: Phenazopyridine HCL 100 MG TABLET PO (19:53)
--- NOTE | 2024-02-08 22:21 | HO.POSTANES ---
Post Anesthesia Evaluation Post Anesthesia Evaluation Date of Service: 02/08/24 Vital Signs: Vital Signs Temp Pulse Resp BP Pulse Ox O2 Del Method O2 Flow Rate 02/08/24 20:25 97.0 F 76 20 174/94 H 93 Room Air 02/08/24 20:10 79 18 174/90 H 95 Nasal Cannula 2 02/08/24 19:55 79 19 163/93 H 95 Nasal Cannula 2 02/08/24 19:45 79 19 165/90 H 93 Nasal Cannula 2 02/08/24 19:40 97.7 F 84 18 159/89 H 94 Nasal Cannula 2 02/08/24 19:00 80 22 H 188/90 H 95 Nasal Cannula 2 02/08/24 13:43 97.5 F 86 20 156/93 H 96 Room Air Anesthesia: General LMA Mental Status: Awake Pain Control: Satisfactory Nausea/Vomiting: None Hydration: Adequate Anesthesia-Related Issues: No Anes. Related Issues
[2024-02-19 15:52] LABS: Stone Source LEFT RENAL STONE
--- NOTE | 2024-02-26 16:28 | W.PM.OPN ---
Operative Note Operative Note Date of Service: 02/08/24 Narrative: PreOperative Diagnosis: Residual left stone with indwelling ureteric catheter Post Operative Diagnosis: Residual left stone with indwelling ureteric catheter Procedure: - cystoscopy, removal indwelling left stent, left retrograde - left ureteroscopy, laser lithotripsy, stone basketing - modifier 22 300 % longer than typical Surgeon: Dr Dangelo Bonilla Anesthesia: General Indications for procedure: Large left renal stone. Based on body habitus had agreed to staged ureteroscopy. Here for completion procedure with cystoscopy, stent removal, left retrograde with ureteroscopy Procedure: After informed consent was verified patient was brought to the operating placed in supine position. Anesthesia was administered per protocol. Patient was placed in modified dorsal lithotomy position and prepped and draped in a sterile fashion. Safety pause time-out and side of surgery confirmed. Antibiotics confirmed. 22 Croatian cystoscope was inserted per urethra. Bladder was normal in its entirety. Both ureteric orifices were in normal position. Stent emerging from left ureteric orifice. Stent grasped and removed. The left ureteric orifice was cannulated and a retrograde examination was performed. Filling defects seen within the left ureteric orifice. A Sensor guidewire was placed up to the level of the renal pelvis under fluoroscopy. The rigid cystoscope was removed and the inner cannula of ureteric access sheath was used under fluoroscopy to dilate the ureteric orifice. The ureteric access sheath was placed and the inner cannula with access wire removed. The digital disposable flexible ureteral scope was placed. Remnant stone was accessed using the flexible ureteric access sheath. 90 minutes spent breaking remnant stone into small pieces with 260 nm laser fiber - this is proximally 300% longer than typical. Multiple laser fibers used. Fragments were able to be brought to the flexible ureteric sheath opening and using dusting settings broken into small enough pieces to be removed. At the completion of the stone procedure the renal pelvis was irrigated using the open-ended catheter. A decision was made not to leave a stent. The ureteric access sheath was removed. The bladder was emptied. The patient tolerated the procedure well and was extubated in the operating room, and transferred in stable condition to the recovery area. Pathology: Stone debris Drains: None
== END 2024-02-08 20:36 | disposition home or self-care (01) ==
PROVIDERS: PCP Internal Medicine; Visit Provider Urology
PROC: (CPT 52353; principal; 2024-02-08 14:00)
DX: N20.0 Calculus of kidney (principal); Z87.442 Personal history of urinary calculi; Z46.6 Encounter for fitting and adjustment of urinary device; N28.1 Cyst of kidney, acquired; N12 Tubulo-interstitial nephritis, not specified as acute or chronic; I10 Essential (primary) hypertension; E78.5 Hyperlipidemia, unspecified; E11.9 Type 2 diabetes mellitus without complications; G47.30 Sleep apnea, unspecified; K76.89 Other specified diseases of liver; R16.1 Splenomegaly, not elsewhere classified; Z88.2 Allergy status to sulfonamides
CPT/HCPCS: 52353; 82365; 82947; 88300; C1758; C1769; J0131; J1885; J1956; J2405; J2704; J3010; Q9967

== ENCOUNTER → 2024-02-08 11:16 | Outpatient (BNV) | payer OTHER, SELFPAY | PROVIDERS: PCP Internal Medicine; Visit Provider Urology | DX: N20.0 Calculus of kidney (principal) | CPT/HCPCS: 52353; 74420 ==

== ENCOUNTER 2024-03-02 13:10 | Inpatient (IN) | payer OTHER, SELFPAY ==
--- NOTE | ~2024-03-02 | FL_ITS ---
EXAMINATION: XR FLUOROSCOPY WITH IMAGES CLINICAL INFORMATION: Cystography, retrograde, stent placement COMPARISON: CT abdomen from 03/02/2024. TECHNIQUE: Fluoroscopy Supervised By: Dr. Rivera. Fluoroscopy Time: 0.3 min Cumulative Dose: 26.6 mGy. DAP: 0.462 Gycm2. Images: 5. FL/FL guidance in OR FINDINGS AND IMPRESSION: The purpose of this report is to document use of fluoroscopic imaging equipment during the urologic procedures. Cystoscope inserted, iodinated contrast injected into the ureter and into the mildly hydronephrotic kidney, and images obtained at time of a left ureteral stent deployment. The urinary tract stones are better depicted on the recent CT imaging exam.
--- NOTE | ~2024-03-02 | XR_ITS ---
EXAMINATION: XR KNEE, RIGHT CLINICAL INFORMATION: Pain COMPARISON: None available. TECHNIQUE: Two views of the right knee. FINDINGS: Bone alignment is normal. No fracture or dislocation. There may be mild medial femoral tibial joint space narrowing. There is an osteophyte at the quadriceps tendon insertion to the patella. There is a small joint effusion. XR/XR knee RT 2V IMPRESSION: Mild degenerative changes.
--- NOTE | ~2024-03-02 | CT_ITS ---
EXAMINATION: CT ABDOMEN AND PELVIS WITHOUT CONTRAST CLINICAL INFORMATION: Fever after urologic procedure COMPARISON: Cystoscopy and left ureteroscopy 02/08/2024, CT abdomen pelvis 08/13/2023 TECHNIQUE: Multidetector volumetric imaging was performed from the superior aspect of the liver through the pubic symphysis. Sagittal and coronal reformatted images were obtained on the technologist's workstation. This CT examination was performed using dose optimization techniques as appropriate, variously including the following: *Automated exposure control *Adjustment of mA and/or kV according to patient size (this includes techniques or standardized protocols for targeted exams where dose is matched to indication/reason for exam; i.e. extremities or head) *Use of iterative reconstruction technique DLP: 1139 mGy-cm FINDINGS: LUNG BASES: The visualized lung bases are unremarkable. LIVER, GALLBLADDER, AND BILIARY TREE: The liver is normal in size, shape, and attenuation. No focal hepatic lesion or biliary ductal dilatation is present. The gallbladder is unremarkable with no evidence of radiopaque gallstones, gallbladder wall thickening, or obvious pericholecystic inflammatory changes. PANCREAS: Unremarkable. SPLEEN: Unremarkable. ADRENAL GLANDS: Unremarkable. KIDNEYS AND URETERS: Right: At the upper pole the right kidney there is a 1.8 cm benign cyst which needs no additional imaging or follow-up. The kidney otherwise appears unremarkable without stones, hydronephrosis or suspicious masses. The right ureter is nondilated. Left: There is a moderate-sized subcapsular hematoma around the left kidney with a rind as thick as 2 cm. Some blood is also present in the perinephric space. A small bilateral parotid surrounds the proximal left ureter. The left ureter is not dilated. Large staghorn type calculi are present in the left renal pelvis with the largest measuring 2.1 cm there is left-sided pelvocaliectasis and multiple intrarenal nonobstructing calculi present. BLADDER: Unremarkable. GASTROINTESTINAL TRACT: The small and large bowel are unremarkable. The appendix is unremarkable. ABDOMINAL WALL: No significant hernia is appreciated. LYMPH NODES: No retroperitoneal lymphadenopathy. VASCULAR: Unremarkable. PELVIC VISCERA: The uterus and adnexa are unremarkable. OSSEOUS STRUCTURES: Mild degenerative changes are present in the lower thoracic spine. No bony destructive lesions. CT/CT abdomen pelvis wo IV con IMPRESSION: 1. Moderate-sized subcapsular hematoma around the left kidney with some blood in the perinephric space. 2. Large calculi in the left renal pelvis with left-sided pelvocaliectasis and multiple left-sided intrarenal nonobstructing calculi. 3. Other incidental findings as described above. Fleischner guidelines were followed. This critical result was discussed with Dr. Woodruff at 7:39 PM on the day of the exam and it was ascertained that the content and urgency of the report was understood at the time of direct communication.
--- NOTE | ~2024-03-02 | XR_ITS ---
EXAMINATION: XR CHEST CLINICAL INFORMATION: Hypoxia, dyspnea COMPARISON: Frontal view 12/26/19 TECHNIQUE: Upright frontal portable view of the chest was obtained. FINDINGS: There is rotation to the right. There are sternal wires and there are multiple surgical clips. The lowest sternal wire is discontinuous. The cardiac silhouette is mildly prominent similar to previous. The central vessels are prominent. There is a small subsegmental opacity in the periphery of the right midlung. No alveolar edema. No pleural fluid or pneumothorax. There is probable extrapleural thickening possibly due to fat deposition. XR/XR chest 1V IMPRESSION: No acute pneumonia or edema. Previous cardiac surgery
[2024-03-02 14:01] VITALS: BP 154/80; PULSE 108; RESP 18; TEMP 38.1; O2SAT 100; BMI 48.4
--- NOTE | 2024-03-02 14:29 | ED_ITS ---
HPI - Female Genitourinary General Chief complaint: Urogenital-Female Stated complaint: recent surgery, urine in blood, knee pain Time Seen by Provider: 03/02/24 15:47 History of Present Illness HPI Narrative: 53 y/o F patient; PMH cardiac repair 1974, T2DM, HTN, HLD; presents from work with report of hematuria associated with fever. The patient is post cystoscopy and removal of indwelling left ureteral stent on 02/26/[address] Bonilla. She otherwise denies: chest pain, difficulty breathing, cough/congestion, vomiting, diarrhea. Related Data Home Medications ?Medication ?Instructions ?Recorded ?Confirmed albuterol sulfate 90 mcg/actuation 2 puff inhalation Q4-6H PRN 09/17/23 02/08/24 aerosol inhaler (Ventolin HFA) Shortness Of Breath Or Wheezing budesonide-formoterol HFA 160 2 puff inhalation BID 09/17/23 02/08/24 mcg-4.5 mcg/actuation aerosol inhaler (Symbicort) citalopram 40 mg tablet 40 mg PO DAILY 09/17/23 02/08/24 dulaglutide 1.5 mg/0.5 mL 1.5 mg subcut QWEEK 09/17/23 02/08/24 subcutaneous pen injector (Trulicity) lisinopril 20 mg tablet 20 mg PO DAILY 09/17/23 02/08/24 meclizine 25 mg tablet 25 mg PO DAILY PRN Vertigo 09/17/23 02/08/24 metformin 1,000 mg tablet 1,000 mg PO BID 09/17/23 02/08/24 montelukast 10 mg tablet 10 mg PO DAILY 09/17/23 02/08/24 norethindrone acetate 5 mg tablet 5 mg PO DAILY 09/17/23 02/08/24 simvastatin 40 mg tablet 40 mg PO BEDTIME 09/17/23 02/08/24 Previous Rx's ?Medication ?Instructions ?Recorded naproxen 500 mg tablet 500 mg PO BID PRN pain 7 days #14 12/28/23 tabs phenazopyridine 100 mg tablet 100 mg PO TID PRN Spasm 4 days #12 12/28/23 (Pyridium) tabs tamsulosin 0.4 mg capsule 0.4 mg PO BEDTIME 14 days #14 caps 12/28/23 tramadol 50 mg tablet 50 mg PO Q6H PRN pain (scale score 12/28/23 1-3) #8 tabs oxycodone-acetaminophen 5 mg-325 1 tab PO Q4H PRN pain (scale score 02/08/24 mg tablet 4-6) 7 days #6 tabs phenazopyridine 100 mg tablet 100 mg PO TID PRN Spasm 4 days #12 02/08/24 (Pyridium) tabs tamsulosin 0.4 mg capsule 0.4 mg PO BEDTIME 14 days #14 caps 02/08/24 Allergies Allergy/AdvReac Type Severity Reaction Status Date / Time sulfamethoxazole Allergy Mild Hives Verified 03/02/24 14:04 [From Bactrim] trimethoprim [From Bactrim] Allergy Unknown Anaphylaxis Verified 02/08/24 13:31 FISH Allergy Unknown Anaphylaxis Uncoded 12/28/23 12:58 Review of Systems 2 Review of Systems: Yes all other systems are reviewed and are negative PMFSH Past Medical History Attestation statement: The following information was validated with the patient. Source: old records reviewed Medical History Asthma Benign paroxysmal positional vertigo Obesity Cataract CKD (chronic kidney disease) Depression HLD (hyperlipidemia) Diabetes HTN (hypertension) Sleep apnea History of kidney stones History of in vitro fertilization Surgical History H/O breast biopsy History of ureteroscopy Hx of ectopic History of open heart surgery Family History Family History Father Cancer Mother Epilepsia Dementia Brother Drug abuse Bipolar 1 disorder Son No problems noted. Social History Social History Alcohol intake: never Patient Tobacco Use Status: Never used Tobacco Smoked in Last 30 Days: No Use of substances other than those prescribed or required for medical reasons: No Advance Directives: No Advance Directives Information Provided: No Patient : No Physical Exam 2 Vital Signs: Vital Signs: Last Vital Signs Temp 99.1 F 03/02/24 19:37 Pulse 100 03/02/24 19:37 Resp 18 03/02/24 19:37 BP 140/76 H 03/02/24 19:37 Pulse Ox 96 03/02/24 19:37 O2 Del Method Room Air 03/02/24 19:37 BMI result Body Mass Index 48.4 Patient is febrile, tachycardic, normotensive. Const: General: cooperative and no acute distress HEENT: Head: Yes normal to inspection and Yes atraumatic Eyes: General: appearance normal, both eyes and all related structures P upils: Equal, round and reactive pupils present EOM: EOMs intact bilaterally Neck: Neck: Yes normal visual inspection and Yes full ROM Chest: Chest palpation & inspection: normal inspection of the chest and normal palpation of entire chest wall Resp: Effort & Inspection: normal respiratory effort, able to speak in complete sentences, no cough and no respiratory distress Auscultation: clear to auscultation bilaterally Cardio: Rate: tachycardic Rhythm: regular rhythm Peripheral pulses: P eripheral pulses 2+ throughout GI: Palpation (GI): Soft to palpation, not firm, nontender, no guarding and not rigid Auscultation: normal bowel sounds Neuro: Cranial nerves: Yes Equal, round and reactive pupils present Course Course Course Narrative: RME:? 53 yo female hx of asthma, depression, HTN, DM, renal stones, CKD, obesity, BPPV here for eval of hematuria. Endorses cystoscopy 3 weeks ago. Now she endorses blood in her urine along with abdominal pain. Additionally endorses right knee pain and wonders if she may have pulled a muscle. She took Tylenol around 8:00 a.m. this morning. ambulating w/ steady gait. She is hypertensive and febrile, meeting sepsis criteria. Labs, lactate, blood cultures, UA, knee xr ordered. Full HPI, ROS and PE to be performed by the primary ED provider. Reevaluation(s) Reevaluation #1: Patient arrived febrile and tachycardic. Reviewed triage work up - added CT Abdomen/Pelvis W IV Contrast. Provided 1L IVF. CXR unremarkable. UA with evidence of significant glucosuria - POC glucose >300. Added betahydroxybuterate and VBG. UA otherwise without evidence of acute infection. VBG without acidosis. No evidence of DKA or HHS. Placed on insulin sliding scale for hyperglycemia. Cr elevated consistent with EDUARDO. Receiving 1L IVF. CT Abdomen/Pelvis changed to W/O Contrast. Unclear etiology of fever, tachycardia - provided Ceftriaxone 1g IV. CT scan with evidence of moderate size subcapsular hematoma around the left kidney with some blood in the perinephric space. Discussed with urology who will evaluate the patient in the morning. Plan: Admit to hospitalist Condition: Stable Medications Administered Discontinued Medications Generic Name Dose Route Start Last Admin Trade Name Freq PRN Reason Stop Dose Admin Sodium Chloride 1,000 mls @ 999 mls/hr 03/02/24 16:00 03/02/24 18:17 Ns IV 03/02/24 17:00 Infused .Q1H1M NUBIA Infusion Ceftriaxone Sodium 1 gm/ 50 mls @ 100 mls/hr 03/02/24 16:49 03/02/24 18:16 Sodium Chloride IV 03/02/24 17:18 Infused ONCE ONE Infusion Medical Decision Making Lab Data 03/02/24 15:56 03/02/24 15:56 Labs: Lab Results 03/02/24 03/02/24 03/02/24 Range/Units 15:56 16:18 16:46 WBC 18.6 H (4.8-10.8) X10*3/uL RBC 4.66 D (4.20-5.50) X10*6/uL Hgb 11.9 L D (12.0-16.0) g/dl Hct 36.2 L D (37.0-47.0) % MCV 77.7 L (80.0-98.0) fL MCH 25.5 L (27.0-33.0) pg MCHC 32.9 (31.0-35.0) g/dl RDW 13.9 (11.0-16.0) % Plt Count 382 (160-400) X10*3/uL MPV 10.3 (9.4-12.3) fL Immature Gran % (Auto) 0.8 H (0.0-0.4) % Neut % (Auto) 84.6 H (45-73) % Lymph % (Auto) 8.5 L (20-40) % [place] % (Auto) 5.8 (2-11) % Eos % (Auto) 0.1 (0-4) % Baso % (Auto) 0.2 (0-2) % Lymph # (Auto) 1.6 (1.2-4.9) X10*3/uL [place] # (Auto) 1.1 (0.1-1.2) X10*3/uL Eos # (Auto) 0.0 (0.0-0.4) X10*3/uL Baso # (Auto) 0.0 (0.0-0.2) X10*3/uL Abs Immat Gran (auto) 0.15 H (0.00-0.03) X10*3/uL Absolute Neuts (auto) 15.7 H (2.0-8.3) x10*3/uL Absolute Nucleated RBC 0.000 (0.0-0.012) X10*3/uL Nucleated RBC % (auto) 0.0 (0.0-0.2) /100WBC VBG pH (7.32-7.43) VBG pCO2 mmHg VBG pO2 mmHg VBG HCO3 (22-26) mmol/L VBG O2 Saturation % VBG Base Excess mmol/L Sodium 133 L (135-145) mmol/L Potassium 3.7 (3.3-5.1) mmol/L Chloride 98 (96-108) mmol/L Carbon Dioxide 23 (22-29) mmol/L Anion Gap 16 (12-20) BUN 26 H (9-16) mg/dL Creatinine 2.01 H (0.5-1.4) mg/dL Estim Creat Clear Calc 46.0 Estimated GFR 26 POC Glucose 367 H* (60-115) mg/dL Random Glucose 418 H* (60-115) mg/dL Estimat Average Glucose 166 mg/dL Hemoglobin A1c % 7.4 H (<6.0) % Lactic Acid 2.1 H* (0.5-2.0) mmol/L Lactic Acid F/U @ 2Hr (0.5-2.0) mmol/L Calcium 9.3 (8.4-10.2) mg/dL Magnesium 1.9 (1.6-2.6) mg/dL Total Bilirubin 1.1 H (0.0-1.0) mg/dL AST 8 (5-31) U/L ALT 13 (0-31) U/L Alkaline Phosphatase 123 H (39-117) U/L Total Protein 7.7 (6.5-8.0) g/dL Albumin 3.7 (3.5-5.0) g/dL Lipase 20 (8-78) U/L Beta-Hydroxybutyrate 0.06 (0.02-0.27) mmol/L Urine Color Dark Yellow Urine Appearance Turbid Urine pH 5.0 (5.0-9.0) Ur Specific [place] >= 1.030 H (1.005-1.025) Urine Protein 300 (3+) H (Neg-Trace) mg/dL Urine Glucose (UA) >=1000 H (Negative) mg/dL Urine Ketones Trace (Negative) mg/dL Urine Blood Large (3+) H (Negative) Urine Nitrite Negative (Negative) Ur Leukocyte Esterase Trace H (Negative) Urine RBC 6-10 H (0-2) /HPF Urine WBC 0-5 (0-5) /HPF Ur Squamous Epith Cells >20 (0-2) /HPF Urine Bacteria 3+ (None Seen) Hyaline Casts 11-20 (0-2) /LPF 03/02/24 03/02/24 Range/Units 16:48 18:21 WBC (4.8-10.8) X10*3/uL RBC (4.20-5.50) X10*6/uL Hgb (12.0-16.0) g/dl Hct (37.0-47.0) % MCV (80.0-98.0) fL MCH (27.0-33.0) pg MCHC (31.0-35.0) g/dl RDW (11.0-16.0) % Plt Count (160-400) X10*3/uL MPV (9.4-12.3) fL Immature Gran % (Auto) (0.0-0.4) % Neut % (Auto) (45-73) % Lymph % (Auto) (20-40) % [place] % (Auto) (2-11) % Eos % (Auto) (0-4) % Baso % (Auto) (0-2) % Lymph # (Auto) (1.2-4.9) X10*3/uL [place] # (Auto) (0.1-1.2) X10*3/uL Eos # (Auto) (0.0-0.4) X10*3/uL Baso # (Auto) (0.0-0.2) X10*3/uL Abs Immat Gran (auto) (0.00-0.03) X10*3/uL Absolute Neuts (auto) (2.0-8.3) x10*3/uL Absolute Nucleated RBC (0.0-0.012) X10*3/uL Nucleated RBC % (auto) (0.0-0.2) /100WBC VBG pH 7.49 H (7.32-7.43) VBG pCO2 34 mmHg VBG pO2 133 mmHg VBG HCO3 26 (22-26) mmol/L VBG O2 Saturation 99.0 % VBG Base Excess 3.7 mmol/L Sodium (135-145) mmol/L Potassium (3.3-5.1) mmol/L Chloride (96-108) mmol/L Carbon Dioxide (22-29) mmol/L Anion Gap (12-20) BUN (9-16) mg/dL Creatinine (0.5-1.4) mg/dL Estim Creat Clear Calc Estimated GFR POC Glucose (60-115) mg/dL Random Glucose (60-115) mg/dL Estimat Average Glucose mg/dL Hemoglobin A1c % (<6.0) % Lactic Acid (0.5-2.0) mmol/L Lactic Acid F/U @ 2Hr 1.0 (0.5-2.0) mmol/L Calcium (8.4-10.2) mg/dL Magnesium (1.6-2.6) mg/dL Total Bilirubin (0.0-1.0) mg/dL AST (5-31) U/L ALT (0-31) U/L Alkaline Phosphatase (39-117) U/L Total Protein (6.5-8.0) g/dL Albumin (3.5-5.0) g/dL Lipase (8-78) U/L Beta-Hydroxybutyrate (0.02-0.27) mmol/L Urine Color Urine Appearance Urine pH (5.0-9.0) Ur Specific [place] (1.005-1.025) Urine Protein (Neg-Trace) mg/dL Urine Glucose (UA) (Negative) mg/dL Urine Ketones (Negative) mg/dL Urine Blood (Negative) Urine Nitrite (Negative) Ur Leukocyte Esterase (Negative) Urine RBC (0-2) /HPF Urine WBC (0-5) /HPF Ur Squamous Epith Cells (0-2) /HPF Urine Bacteria (None Seen) Hyaline Casts (0-2) /LPF Radiology Impression Discussion of test interpretation with radiology: I have reviewed the radiologist's reading. Radiologist Impression: EXAMINATION: XR KNEE, RIGHT CLINICAL INFORMATION: Pain COMPARISON: None available. TECHNIQUE: Two views of the right knee. FINDINGS: Bone alignment is normal. No fracture or dislocation. There may be mild medial femoral tibial joint space narrowing. There is an osteophyte at the quadriceps tendon insertion to the patella. There is a small joint effusion. XR/XR knee RT 2V IMPRESSION: Mild degenerative changes. EXAMINATION: CT ABDOMEN AND PELVIS WITHOUT CONTRAST CLINICAL INFORMATION: Fever after urologic procedure COMPARISON: Cystoscopy and left ureteroscopy 02/08/2024, CT abdomen pelvis 08/13/2023 TECHNIQUE: Multidetector volumetric imaging was performed from the superior aspect of the liver through the pubic symphysis. Sagittal and coronal reformatted images were obtained on the technologist's workstation. This CT examination was performed using dose optimization techniques as appropriate, variously including the following: *Automated exposure control *Adjustment of mA and/or kV according to patient size (this includes techniques or standardized protocols for targeted exams where dose is matched to indication/reason for exam; i.e. extremities or head) *Use of iterative reconstruction technique DLP: 1139 mGy-cm FINDINGS: LUNG BASES: The visualized lung bases are unremarkable. LIVER, GALLBLADDER, AND BILIARY TREE: The liver is normal in size, shape, and attenuation. No focal hepatic lesion or biliary ductal dilatation is present. The gallbladder is unremarkable with no evidence of radiopaque gallstones, gallbladder wall thickening, or obvious pericholecystic inflammatory changes. PANCREAS: Unremarkable. SPLEEN: Unremarkable. ADRENAL GLANDS: Unremarkable. KIDNEYS AND URETERS: Right: At the upper pole the right kidney there is a 1.8 cm benign cyst which needs no additional imaging or follow-up. The kidney otherwise appears unremarkable without stones, hydronephrosis or suspicious masses. The right ureter is nondilated. Left: There is a moderate-sized subcapsular hematoma around the left kidney with a rind as thick as 2 cm. Some blood is also present in the perinephric space. A small bilateral parotid surrounds the proximal left ureter. The left ureter is not dilated. Large staghorn type calculi are present in the left renal pelvis with the largest measuring 2.1 cm there is left-sided pelvocaliectasis and multiple intrarenal nonobstructing calculi present. BLADDER: Unremarkable. GASTROINTESTINAL TRACT: The small and large bowel are unremarkable. The appendix is unremarkable. ABDOMINAL WALL: No significant hernia is appreciated. LYMPH NODES: No retroperitoneal lymphadenopathy. VASCULAR: Unremarkable. PELVIC VISCERA: The uterus and adnexa are unremarkable. OSSEOUS STRUCTURES: Mild degenerative changes are present in the lower thoracic spine. No bony destructive lesions. CT/CT abdomen pelvis wo IV con IMPRESSION: 1. Moderate-sized subcapsular hematoma around the left kidney with some blood in the perinephric space. 2. Large calculi in the left renal pelvis with left-sided pelvocaliectasis and multiple left-sided intrarenal nonobstructing calculi. 3. Other incidental findings as described above. Discharge Plan Discharge Prescriptions: No Action oxycodone-acetaminophen 5-325 mg tablet 1 tab PO Q4H PRN (Reason: pain (scale score 4-6)) 7 Days Qty: 6 0RF Rx Instructions: Partial Fill upon patient request. tamsulosin 0.4 mg capsule 0.4 mg PO BEDTIME 14 Days Qty: 14 0RF phenazopyridine [Pyridium] 100 mg tablet 100 mg PO TID PRN (Reason: Spasm) 4 Days Qty: 12 0RF tramadol 50 mg tablet 50 mg PO Q6H PRN (Reason: pain (scale score 1-3)) Qty: 8 0RF tamsulosin 0.4 mg capsule 0.4 mg PO BEDTIME 14 Days Qty: 14 0RF phenazopyridine [Pyridium] 100 mg tablet 100 mg PO TID PRN (Reason: Spasm) 4 Days Qty: 12 0RF naproxen 500 mg tablet 500 mg PO BID PRN (Reason: pain) 7 Days Qty: 14 0RF budesonide-formoterol [Symbicort] 160-4.5 mcg/actuation HFA aerosol inhaler 2 puff inhalation BID albuterol sulfate [Ventolin HFA] 90 mcg/actuation HFA aerosol inhaler 2 puff inhalation Q4-6H PRN (Reason: Shortness Of Breath Or Wheezing) metformin 1,000 mg tablet 1,000 mg PO BID meclizine 25 mg tablet 25 mg PO DAILY PRN (Reason: Vertigo) Trulicity 1.5 mg/0.5 mL pen injector 1.5 mg subcut QWEEK montelukast 10 mg tablet 10 mg PO DAILY citalopram 40 mg tablet 40 mg PO DAILY norethindrone acetate 5 mg tablet 5 mg PO DAILY simvastatin 40 mg tablet 40 mg PO BEDTIME lisinopril 20 mg tablet 20 mg PO DAILY Print Language: Turkish
[2024-03-02 15:47] VITALS: BP 143/75; PULSE 117; RESP 24; TEMP 36.4; O2SAT 95
[2024-03-02 16:03] LABS: MANUAL DIFF FLAG NO
[2024-03-02 16:06] LABS: Appearance Urine Turbid; Color Urine Dark Yellow; Glucose Urine UA >=1000 mg/dL (Negative); Leukocyte Esterase Urine Trace (Negative); Nitrite Urine Negative (Negative); Specific Gravity - Urine >= 1.030 (1.005-1.025); UMIC TRIGGER UACC YES; Urine Blood Large (3+) (Negative); Urine Ketones Trace mg/dL (Negative); Urine Protein 300 (3+) mg/dL (Neg-Trace)
[2024-03-02 16:15] LABS: Basophils Percent Auto 0.2 % (0-2); Eosinophils Percent Auto 0.1 % (0-4); Hematocrit 36.2 % (37.0-47.0); Hemoglobin 11.9 g/dl (12.0-16.0); Imm Gran Abs Auto 0.15 X10*3/uL (0.00-0.03); Imm Gran Pct Auto 0.8 % (0.0-0.4); Lymphocytes Absolute Auto 1.6 X10*3/uL (1.2-4.9); Lymphocytes Percent Auto 8.5 % (20-40); Mean Corpuscular HGB Conc 32.9 g/dl (31.0-35.0); Mean Corpuscular Hemoglobin 25.5 pg (27.0-33.0); Mean Corpuscular Volume 77.7 fL (80.0-98.0); Mean Platelet Volume 10.3 fL (9.4-12.3); Monocytes Absolute Auto 1.1 X10*3/uL (0.1-1.2); Monocytes Percent Auto 5.8 % (2-11); Neutrophils Absolute Auto 15.7 x10*3/uL (2.0-8.3); Neutrophils Percent Auto 84.6 % (45-73); Platelet Count 382 X10*3/uL (160-400); Red Blood Count 4.66 X10*6/uL (4.20-5.50); Red Cell Distribution Width 13.9 % (11.0-16.0); White Blood Count 18.6 X10*3/uL (4.8-10.8)
[2024-03-02 16:26] LABS: Bacteria Urine 3+ (None Seen); Squamous Epithelial Cell Urine >20 /HPF (0-2); WBC Urine 0-5 /HPF (0-5)
[2024-03-02 16:28] LABS: Glucose, Whole Blood 367 mg/dL (60-115)
[2024-03-02] MEDS: 0.9 % Sodium Chloride 1,000 ML 999 ML IV (16:42)
--- NOTE | 2024-03-02 16:44 | PC.NURSE ---
labs obtained/sent to lab. IVF administered per provider order.
[2024-03-02 16:50] LABS: Lactic Acid 2.1 mmol/L (0.5-2.0)
[2024-03-02 16:51] LABS: Alanine Aminotransferase 13 U/L (0-31); Albumin Level 3.7 g/dL (3.5-5.0); Alkaline Phosphatase 123 U/L (39-117); Anion Gap 16 (12-20); Aspartate Amino Transferase 8 U/L (5-31); Bilirubin Total 1.1 mg/dL (0.0-1.0); Blood Urea Nitrogen 26 mg/dL (9-16); Calcium 9.3 mg/dL (8.4-10.2); Carbon Dioxide 23 mmol/L (22-29); Chloride 98 mmol/L (96-108); Estimated Glomerular Filt Rate 26; Glucose Random 418 mg/dL (60-115); Lipase 20 U/L (8-78); Magnesium 1.9 mg/dL (1.6-2.6); Potassium 3.7 mmol/L (3.3-5.1); Sodium 133 mmol/L (135-145); Total Protein 7.7 g/dL (6.5-8.0)
[2024-03-02 16:52] LABS: Venous Blood Gas Refer to POC result
[2024-03-02 16:54] LABS: VBG Base Excess 3.7 mmol/L; VBG HCO3 26 mmol/L (22-26); VBG pCO2 34 mmHg; VBG pH 7.49 (7.32-7.43); VBG pO2 133 mmHg
[2024-03-02] MEDS: cefTRIAXone sodium 1 GM in 0.9 % Sodium Chloride 50 ML IV (17:05)
--- NOTE | 2024-03-02 17:05 | PC.NURSE ---
pt remains sinus tachy on the pvc monitor - HR between 100-110 bpm. denies chest pain/palpitations. no sob/wob noted at rest. respirations even and unlabored. IVF continues to infuse at this time. abx administered per provider order. plan of care ongoing. call berry placed within reach.
[2024-03-02 17:25] LABS: Estimated Average Glucose 166 mg/dL; Hemoglobin A1c % 7.4 % (<6.0)
[2024-03-02 18:03] LABS: Reflex Lactate? Lactic Acid Added
[2024-03-02 18:07] LABS: Beta-Hydroxybutyrate 0.06 mmol/L (0.02-0.27)
[2024-03-02 18:18] VITALS: BP 147/76; PULSE 99; RESP 26; TEMP 37.2; O2SAT 94
[2024-03-02 19:37] VITALS: BP 140/76; PULSE 100; RESP 18; TEMP 37.3; O2SAT 96
--- NOTE | 2024-03-02 20:10 | PM.IMHP ---
History of Present Illness Date of Service: 03/02/24 Attending physician on admission: Raven Bauman Chief Complaint: Hematuria, fever Pt is a 53-year-old female with a PMH significant for?HTN, HLD, nephrolithiasis, yrs-[id number] type 2 diabetes, mild intermittent asthma, and right ventricular septal defect s/p repair in 1974 who presents to the ED for evaluation of?left kidney pain and hematuria. On 02/08/2024 patient underwent cystoscopy with removal of residual left stone and ureteral stent by Dr. Bonilla. Since procedure patient has been doing well until she developed LLQ and left flank pain beginning on Thursday-Thursday. Pain has been constant and worsening. Yesterday patient noticed hematuria and a foul-smelling odor in her urine. Has also been feeling diaphoretic though never took temperature at home. Has had 1 episode of nausea and vomiting when she attempted to take Aleve for her symptoms. Pain is particularly noticeable with deep inspiration. Patient also complains of right knee pain that has been ongoing since the beginning of January. Denies any known trauma to the area or recent falls. Did present to [facility] on February 14 with negative workup for acute osseous injury. Was told at the time she likely pulled a muscle. Denies chest pain/pressure, palpitations. No diarrhea. In the ED pt was tachycardic up to 117, tachypneic up to 26, febrile up to 100.5, and hypertensive up to 154/80. Labs were significant for leukocytosis of 18.6, H&H 11.9/36.2, sodium 133, BUN 26, creatinine 2.01, random glucose 418, A1c 7.4, and lactic acid 2.1 with repeat 1.0. UA showing trace leukocyte esterase, proteinuria, glucose >1000, and large amount of urine blood. Right knee x-ray showed mild degenerative changes. CT of abd/pelvis showed moderate size subcapsular hematoma around left kidney with small blood in the perinephric space, large calculi in the left renal pelvis with left-sided pelvocaliectasis and multiple left-sided intrarenal nonobstructing calculi. Pt was treated with IVF, ceftriaxone, and hydromorphone. Pt will be admitted to the hospital for treatment and further evaluation of subcapsular hematoma, hematuria, and sepsis in the setting of likely source. Review of Systems Review of Systems: Left lower quadrant and left flank pain Hematuria Foul-smelling urine Subjective fever and chills Right knee pain x6 weeks No chest pain/pressure, palpitations PMFSH Medical History Asthma Benign paroxysmal positional vertigo Obesity Cataract CKD (chronic kidney disease) Depression HLD (hyperlipidemia) Diabetes HTN (hypertension) Sleep apnea History of kidney stones History of in vitro fertilization Family History Father Cancer Mother Epilepsia Dementia Brother Drug abuse Bipolar 1 disorder Son No problems noted. Surgical History H/O breast biopsy History of ureteroscopy Hx of ectopic History of open heart surgery Social History Alcohol intake: never Patient Tobacco Use Status: Never used Tobacco Smoked in Last 30 Days: No Use of substances other than those prescribed or required for medical reasons: No Advance Directives: No Advance Directives Information Provided: No Patient : No Meds Allergies Allergy/AdvReac Type Severity Reaction Status Date / Time sulfamethoxazole Allergy Mild Hives Verified 03/02/24 14:04 [From Bactrim] trimethoprim [From Bactrim] Allergy Unknown Anaphylaxis Verified 02/08/24 13:31 FISH Allergy Unknown Anaphylaxis Uncoded 12/28/23 12:58 Active Medications: Current Medications Acetaminophen (Acetaminophen 325 Mg Tablet) 650 mg PO Q6H PRN PRN Reason: Pain, Mild (Pain Scale 1-3) Glucose (Glucose Gel 15 Gm Gel..Gram.) 15 gm PO Q15M PRN; Protocol PRN Reason: per Hypoglycemia Standing Ord. Ceftriaxone Sodium 1 gm/ (Sodium Chloride) 50 mls @ 100 mls/hr IV Q24H NUBIA Dextrose (D10) 250 mls @ 750 mls/hr IV Q15M PRN; Protocol PRN Reason: per Hypoglycemia Standing Ord. Insulin Human Lispro (Insulin Lispro 100 Unit/Ml 3 Ml Vial) 0 unit SUBCUT QIDACHS NUBIA; Protocol Melatonin (Melatonin 3 Mg Tablet) 6 mg PO BEDTIME PRN PRN Reason: Insomnia Ondansetron HCl (Ondansetron Hcl 4 Mg/2 Ml Vial) 4 mg IVPUSH Q8H PRN PRN Reason: Nausea and Vomiting Sodium Chloride (0.9 % Sodium Chloride Flush 3 Ml Syringe) 3 ml IVFLUSH QSHIFT [facility] Home Medications ?Medication ?Instructions ?Recorded ?Confirmed ?Last Taken ?Type albuterol sulfate 90 mcg/actuation 2 puff inhalation Q4-6H PRN 09/17/23 03/02/24 Unknown History aerosol inhaler (Ventolin HFA) Shortness Of Breath Or Wheezing budesonide-formoterol HFA 160 2 puff inhalation BID 09/17/23 03/02/24 Unknown History mcg-4.5 mcg/actuation aerosol inhaler (Symbicort) citalopram 40 mg tablet 40 mg PO DAILY 09/17/23 03/02/24 Unknown History lisinopril 20 mg tablet 20 mg PO DAILY 09/17/23 03/02/24 Unknown History meclizine 25 mg tablet 25 mg PO DAILY Vertigo 09/17/23 03/02/24 Unknown History metformin 1,000 mg tablet 1,000 mg PO BID 09/17/23 03/02/24 Unknown History montelukast 10 mg tablet 10 mg PO DAILY 09/17/23 03/02/24 Unknown History norethindrone acetate 5 mg tablet 5 mg PO DAILY 09/17/23 03/02/24 Unknown History simvastatin 40 mg tablet 40 mg PO BEDTIME 09/17/23 03/02/24 Unknown History tirzepatide 7.5 mg/0.5 mL 7.5 mg subcut QWEEK 03/02/24 03/02/24 Unknown History subcutaneous pen injector (Mounjaro) Physical Exam Vital Signs and Narrative: Vital Signs: Last Vital Signs Temp 99.1 F 03/02/24 19:37 Pulse 100 03/02/24 19:37 Resp 18 03/02/24 19:37 BP 140/76 H 03/02/24 19:37 Pulse Ox 96 03/02/24 19:37 O2 Del Method Room Air 03/02/24 19:37 BMI result Body Mass Index 48.4 Constitutional: Alert, in no acute distress. Mental Status: Oriented to person, place and time. Eyes: Pupils are equal, round, and reactive to light. Ear, Nose, and Throat: Oropharynx clear, mucous membranes moist. Ears and nose without deformities. Trachea midline. Respiratory: Clear to auscultation bilaterally. No wheezing, rales, or rhonchi. Cardiovascular: S1, S2, tachy. No murmurs, rubs, or gallops. Gastrointestinal: Abdomen soft, non-distended, with left-sided abd and flank tenderness. Normal bowel sounds. Neurologic: Cranial nerves II-XII are grossly intact bilaterally. No focal neurological deficits. Moves all extremities spontaneously. Skin: Warm, dry. Musculoskeletal: No cyanosis or clubbing. Extremities: No edema. Psychiatric: Normal mood and affect. Results Labs 03/02/24 15:56 03/02/24 15:56 Labs: Laboratory Results - last 24 hr 03/02/24 03/02/24 03/02/24 15:56 16:18 16:46 MCV 77.7 L MCH 25.5 L MCHC 32.9 RDW 13.9 Plt Count 382 MPV 10.3 Immature Gran % (Auto) 0.8 H Neut % (Auto) 84.6 H Lymph % (Auto) 8.5 L [place] % (Auto) 5.8 Eos % (Auto) 0.1 Baso % (Auto) 0.2 Lymph # (Auto) 1.6 [place] # (Auto) 1.1 Eos # (Auto) 0.0 Baso # (Auto) 0.0 Abs Immat Gran (auto) 0.15 H Absolute Neuts (auto) 15.7 H Absolute Nucleated RBC 0.000 Nucleated RBC % (auto) 0.0 VBG pH VBG pCO2 VBG pO2 VBG HCO3 VBG O2 Saturation VBG Base Excess Anion Gap 16 Estim Creat Clear Calc 46.0 Estimated GFR 26 POC Glucose 367 H* Random Glucose 418 H* Estimat Average Glucose 166 Hemoglobin A1c % 7.4 H Lactic Acid 2.1 H* Lactic Acid F/U @ 2Hr Calcium 9.3 Magnesium 1.9 Total Bilirubin 1.1 H AST 8 ALT 13 Alkaline Phosphatase 123 H Total Protein 7.7 Albumin 3.7 Lipase 20 Beta-Hydroxybutyrate 0.06 Urine Color Dark Yellow Urine Appearance Turbid Urine pH 5.0 Ur Specific Millen >= 1.030 H Urine Protein 300 (3+) H Urine Glucose (UA) >=1000 H Urine Ketones Trace Urine Blood Large (3+) H Urine Nitrite Negative Ur Leukocyte Esterase Trace H Urine RBC 6-10 H Urine WBC 0-5 Ur Squamous Epith Cells >20 Urine Bacteria 3+ Hyaline Casts 11-20 03/02/24 03/02/24 16:48 18:21 MCV MCH MCHC RDW Plt Count MPV Immature Gran % (Auto) Neut % (Auto) Lymph % (Auto) [place] % (Auto) Eos % (Auto) Baso % (Auto) Lymph # (Auto) [place] # (Auto) Eos # (Auto) Baso # (Auto) Abs Immat Gran (auto) Absolute Neuts (auto) Absolute Nucleated RBC Nucleated RBC % (auto) VBG pH 7.49 H VBG pCO2 34 VBG pO2 133 VBG HCO3 26 VBG O2 Saturation 99.0 VBG Base Excess 3.7 Anion Gap Estim Creat Clear Calc Estimated GFR POC Glucose Random Glucose Estimat Average Glucose Hemoglobin A1c % Lactic Acid Lactic Acid F/U @ 2Hr 1.0 Calcium Magnesium Total Bilirubin AST ALT Alkaline Phosphatase Total Protein Albumin Lipase Beta-Hydroxybutyrate Urine Color Urine Appearance Urine pH Ur Specific Millen Urine Protein Urine Glucose (UA) Urine Ketones Urine Blood Urine Nitrite Ur Leukocyte Esterase Urine RBC Urine WBC Ur Squamous Epith Cells Urine Bacteria Hyaline Casts Imaging Radiologist's Impressions: Impressions Knee X-Ray 03/02/24 15:27 IMPRESSION: Mild degenerative changes. Abdomen/Pelvis CT 03/02/24 17:45 IMPRESSION: 1. Moderate-sized subcapsular hematoma around the left kidney with some blood in the perinephric space. 2. Large calculi in the left renal pelvis with left-sided pelvocaliectasis and multiple left-sided intrarenal nonobstructing calculi. 3. Other incidental findings as described above. Fleischner guidelines were followed. This critical result was discussed with Dr. Woodruff at 7:39 PM on the day of the exam and it was ascertained that the content and urgency of the report was understood at the time of direct communication. Assessment and Plan (1) Perinephric hematoma: Status: Acute (2) EDUARDO (acute kidney injury): Status: Acute Plan Pt is a 53-year-old female with a PMH significant for?HTN, HLD, nephrolithiasis, hda-olflufe-ddyecxhaj type 2 diabetes, mild intermittent asthma, and right ventricular septal defect s/p repair in 1974 who presents to the ED for evaluation of?left kidney pain and hematuria. Pt will be admitted to the hospital for treatment and further evaluation of subcapsular hematoma, hematuria, and sepsis in the setting of likely source. Hematuria Patient with left flank pain, hematuria, foul-smelling urine x2-3 days Pt had cystoscopy and removal left ureteral stent on 02/08/2024 CT of abd/pelvis with moderate sized sub capsular hematoma around left kidney with some blood in the perinephric space, and large calculi and left renal pelvis Analgesics for pain management NPO after midnight for possible urology procedure tomorrow Urology consult Likely UTI with sepsis Pt with left flank pain, hematuria, foul-smelling urine Pt meets sepsis criteria: Tachycardia, tachypnea, leukocytosis; lactic acid 2.1 with repeat 1.0 Patient received IVF and started on broad-spectrum antibiotics in the ED Will treat with ceftriaxone, started 03/02/2024 Follow cultures EDUARDO Creatinine 2.01, up from 1.40 on 08/13/2023 In the setting of above Pt received IVF in the ED Will place on maintenance fluids Follow BMP Right knee pain Ongoing since beginning january Denies any known trauma to the area or recent falls Workup at [facility] on negative for acute injury, diagnosed as a pulled muscle XR here showed mild degenerative disease F/U outpatient Mild intermittent asthma Not in acute exacerbation Continue home inhalers HTN Hold lisinopril due to EDUARDO Non-insulin type 2 diabetes Hold metformin SSI, diabetic diet HLD Continue statin Mood disorder Continue home meds OBesity class III Weight loss encouraged Full Code Attending:?Dr. Bauman DVT Prophylaxis: Pneumatic boots d/t hematuria Pt will require a hospitalization of at least two nights for treatment of?subcapsular hematoma, hematuria, and sepsis in the setting of likely UTI. Patient will require hospitalization for the administration of IV antibiotics, IV fluids, close monitoring of labs, and specialist consultation with Urology. Quality Stroke Does the patient have a stroke diagnosis?: No VTE Prior VTE?: No VTE Risk Level:: Medical - moderate - high VTE Device Contraindication: N/A - Device Ordered VTE Drug Contraindication: Treatment Not Indicated
[2024-03-02 20:16] LABS: Glucose, Whole Blood 266 mg/dL (60-115)
[2024-03-02 20:19] VITALS: BP 125/70; PULSE 96; RESP 17; TEMP 37.1; O2SAT 99
[2024-03-02] MEDS: Insulin Regular, Human 100 UNIT/ML 3 ML VIAL IVPUSH (20:28)
[2024-03-02] MEDS: HYDROmorphone HCl 0.5 MG/0.5 ML SYRINGE IVPUSH (20:28)
[2024-03-02] MEDS: ondansetron HCL 4 MG/2 ML VIAL IVPUSH (20:28)
--- NOTE | 2024-03-02 20:28 | PHA.MEDREC ---
Pharmacy Consult ? Medication Reconciliation Pharmacy has completed the medication reconciliation. Spoke with patient who stated she is no longer on trulicity, she is on Mounjaro but also admits to not taking it for some time as she has not felt well.
--- NOTE | 2024-03-02 20:51 | PC.NURSE ---
Assumed care of pt at 1900. PT a/ox4, in no acute distress. Skin pwd, vss, pt reporting 8/10 knee and flank pain. POC 266. administered medication as per JAN. Plan for pt to be admitted.
[2024-03-02 21:51] LABS: Glucose, Whole Blood 237 mg/dL (60-115)
[2024-03-02 22:10] VITALS: BP 137/81; PULSE 106; RESP 20; TEMP 36.8; O2SAT 94
[2024-03-02] MEDS: Insulin Lispro 100 UNIT/ML 3 ML VIAL SUBCUT (22:47)
[2024-03-02] MEDS: 0.9 % Sodium Chloride 1,000 ML 100 ML IVCONT (22:49)
[2024-03-03] VITALS (14 sets, daily range): BP systolic 105–142; BP diastolic 56–76; PULSE 79–122; RESP 15–24; TEMP 35.9–36.6; O2SAT 89–96
[2024-03-03] MEDS: Morphine Sulfate 4 MG/ML CARTRIDGE IVPUSH (00:40)
[2024-03-03] MEDS: HYDROmorphone HCl 1 MG/ML SYRINGE IVPUSH ×2 (04:01→08:45)
[2024-03-03 06:56] LABS: MANUAL DIFF FLAG NO
[2024-03-03 07:05] LABS: Basophils Absolute Auto 0.1 X10*3/uL (0.0-0.2); Basophils Percent Auto 0.3 % (0-2); Eosinophils Percent Auto 0.1 % (0-4); Hematocrit 34.6 % (37.0-47.0); Hemoglobin 11.2 g/dl (12.0-16.0); Imm Gran Abs Auto 0.14 X10*3/uL (0.00-0.03); Imm Gran Pct Auto 0.8 % (0.0-0.4); Lymphocytes Absolute Auto 1.3 X10*3/uL (1.2-4.9); Lymphocytes Percent Auto 7.4 % (20-40); Mean Corpuscular HGB Conc 32.4 g/dl (31.0-35.0); Mean Corpuscular Hemoglobin 25.9 pg (27.0-33.0); Mean Corpuscular Volume 80.1 fL (80.0-98.0); Mean Platelet Volume 10.6 fL (9.4-12.3); Monocytes Absolute Auto 1.2 X10*3/uL (0.1-1.2); Monocytes Percent Auto 6.6 % (2-11); Neutrophils Absolute Auto 15.2 x10*3/uL (2.0-8.3); Neutrophils Percent Auto 84.8 % (45-73); Platelet Count 316 X10*3/uL (160-400); Red Blood Count 4.32 X10*6/uL (4.20-5.50)
[2024-03-03 07:28] LABS: Glucose, Whole Blood 225 mg/dL (60-115)
[2024-03-03 07:29] LABS: Anion Gap 14 (12-20); Blood Urea Nitrogen 25 mg/dL (9-16); Carbon Dioxide 25 mmol/L (22-29); Chloride 103 mmol/L (96-108); Creatinine Clr Calc Pharmacy 50.2; Estimated Glomerular Filt Rate 29; Glucose Random 225 mg/dL (60-115); Potassium 3.5 mmol/L (3.3-5.1); Sodium 138 mmol/L (135-145)
[2024-03-03] MEDS: Fluticasone/Vilanterol 200/25 BLST.W.DEV 1 PUFF INHALE (07:50)
[2024-03-03] MEDS: Escitalopram Oxalate 20 MG TABLET PO (08:35)
[2024-03-03] MEDS: Meclizine HCl 25 MG TABLET PO (08:35)
[2024-03-03] MEDS: Montelukast Sodium 10 MG TABLET PO (08:35)
[2024-03-03] MEDS: 0.9 % Sodium Chloride 1,000 ML 125 ML IVCONT (08:39)
[2024-03-03] MEDS: Insulin Lispro 100 UNIT/ML 3 ML VIAL SUBCUT ×4 (08:39→22:47)
--- NOTE | 2024-03-03 09:41 | P.PNIM_ITS ---
Subjective Subjective Date of Service: 03/03/24 Interval History: T 100.5 yesterday afternoon severe L flank pain NPO Review of Systems Review of Systems: Yes all other systems are reviewed and are negative Physical Exam 2 Vital Signs: Vital Signs: Last Vital Signs Temp 97.8 F 03/03/24 07:14 Pulse 122 H 03/03/24 07:53 Resp 16 03/03/24 07:53 BP 141/73 H 03/03/24 07:14 Pulse Ox 92 03/03/24 07:14 O2 Del Method Room Air 03/03/24 07:14 BMI result Body Mass Index 48.4 Gen: in pain HEENT: sclera anicteric, moist mucus membranes Neck: supple Lungs: clear to auscultation bilaterally Heart: regular, tachycardic, no murmurs Abd: soft, non-tender, non-distended, obese : L CVAT Ext: no edema Skin: warm/well-perfused Neuro: alert and oriented x3, no focal findings Psych: appropriate affect Objective Data Active Medications Acetaminophen (Acetaminophen 325 Mg Tablet) 650 mg PO Q6H PRN PRN Reason: Pain, Mild (Pain Scale 1-3) Albuterol Sulfate (Albuterol Sulfate 90 Mcg 8 Gm Inhaler) 2 puff INHALE RQ4H PRN PRN Reason: Shortness Of Breath Or Wheezing Escitalopram Oxalate (Escitalopram Oxalate 20 Mg Tablet) 20 mg PO DAILY COUNT INCLUDES THE [facility] Last Admin: 03/03/24 08:35 Dose: 20 mg Documented By: MARIBELL Fluticasone/Vilanterol (Fluticasone/Vilanterol 200/25 Blst.W.Dev) 1 puff INHALE DAILY COUNT INCLUDES THE [facility] Last Admin: 03/03/24 07:50 Dose: 1 puff Documented By: ESSIE Glucose (Glucose Gel 15 Gm Gel..Gram.) 15 gm PO Q15M PRN; Protocol PRN Reason: per Hypoglycemia Standing Ord. Hydromorphone HCl (Hydromorphone Hcl 1 Mg/Ml Syringe) 1 mg IVPUSH Q4H PRN; Protocol PRN Reason: severe pain Last Admin: 03/03/24 08:45 Dose: 1 mg Documented By: MARIBELL Ceftriaxone Sodium 1 gm/ (Sodium Chloride) 50 mls @ 100 mls/hr IV Q24H COUNT INCLUDES THE [facility] Dextrose (D10) 250 mls @ 750 mls/hr IV Q15M PRN; Protocol PRN Reason: per Hypoglycemia Standing Ord. Sodium Chloride (Ns) 1,000 mls @ 125 mls/hr IVCONT .Q8H COUNT INCLUDES THE [facility] Last Admin: 03/03/24 08:39 Dose: 125 mls/hr Documented By: MARIBELL Insulin Human Lispro (Insulin Lispro 100 Unit/Ml 3 Ml Vial) 0 unit SUBCUT QIDACHS COUNT INCLUDES THE [facility]; Protocol Last Admin: 03/03/24 08:39 Dose: 4 unit Documented By: MARIBELL Meclizine HCl (Meclizine Hcl 25 Mg Tablet) 25 mg PO DAILY COUNT INCLUDES THE [facility] Last Admin: 03/03/24 08:35 Dose: 25 mg Documented By: MARIBELL Melatonin (Melatonin 3 Mg Tablet) 6 mg PO BEDTIME PRN PRN Reason: Insomnia Montelukast Sodium (Montelukast Sodium 10 Mg Tablet) 10 mg PO DAILY COUNT INCLUDES THE [facility] Last Admin: 03/03/24 08:35 Dose: 10 mg Documented By: MARIBELL Non-Formulary Medication (Norethindrone Acetate) 5 mg PO DAILY COUNT INCLUDES THE [facility] Ondansetron HCl (Ondansetron Hcl 4 Mg/2 Ml Vial) 4 mg IVPUSH Q8H PRN PRN Reason: Nausea and Vomiting Sodium Chloride (0.9 % Sodium Chloride Flush 3 Ml Syringe) 3 ml IVFLUSH QSHIFT COUNT INCLUDES THE [facility] Last Admin: 03/03/24 07:34 Dose: Not Given Documented By: MARIBELL Non-Admin Reason: IV Running Labs 03/03/24 06:53 03/03/24 06:53 Labs: Laboratory Results - last 24 hr 03/02/24 03/02/24 03/02/24 15:56 16:18 16:46 MCV 77.7 L MCH 25.5 L MCHC 32.9 RDW 13.9 Plt Count 382 MPV 10.3 Immature Gran % (Auto) 0.8 H Neut % (Auto) 84.6 H Lymph % (Auto) 8.5 L Lamb % (Auto) 5.8 Eos % (Auto) 0.1 Baso % (Auto) 0.2 Lymph # (Auto) 1.6 Lamb # (Auto) 1.1 Eos # (Auto) 0.0 Baso # (Auto) 0.0 Abs Immat Gran (auto) 0.15 H Absolute Neuts (auto) 15.7 H Absolute Nucleated RBC 0.000 Nucleated RBC % (auto) 0.0 VBG pH VBG pCO2 VBG pO2 VBG HCO3 VBG O2 Saturation VBG Base Excess Anion Gap 16 Estim Creat Clear Calc 46.0 Estimated GFR 26 POC Glucose 367 H* Random Glucose 418 H* Estimat Average Glucose 166 Hemoglobin A1c % 7.4 H Lactic Acid 2.1 H* Lactic Acid F/U @ 2Hr Calcium 9.3 Magnesium 1.9 Total Bilirubin 1.1 H AST 8 ALT 13 Alkaline Phosphatase 123 H Total Protein 7.7 Albumin 3.7 Lipase 20 Beta-Hydroxybutyrate 0.06 Urine Color Dark Yellow Urine Appearance Turbid Urine pH 5.0 Ur Specific [place] >= 1.030 H Urine Protein 300 (3+) H Urine Glucose (UA) >=1000 H Urine Ketones Trace Urine Blood Large (3+) H Urine Nitrite Negative Ur Leukocyte Esterase Trace H Urine RBC 6-10 H Urine WBC 0-5 Ur Squamous Epith Cells >20 Urine Bacteria 3+ Hyaline Casts 11-20 03/02/24 03/02/24 03/02/24 16:48 18:21 20:12 MCV MCH MCHC RDW Plt Count MPV Immature Gran % (Auto) Neut % (Auto) Lymph % (Auto) Lamb % (Auto) Eos % (Auto) Baso % (Auto) Lymph # (Auto) Lamb # (Auto) Eos # (Auto) Baso # (Auto) Abs Immat Gran (auto) Absolute Neuts (auto) Absolute Nucleated RBC Nucleated RBC % (auto) VBG pH 7.49 H VBG pCO2 34 VBG pO2 133 VBG HCO3 26 VBG O2 Saturation 99.0 VBG Base Excess 3.7 Anion Gap Estim Creat Clear Calc Estimated GFR POC Glucose 266 H Random Glucose Estimat Average Glucose Hemoglobin A1c % Lactic Acid Lactic Acid F/U @ 2Hr 1.0 Calcium Magnesium Total Bilirubin AST ALT Alkaline Phosphatase Total Protein Albumin Lipase Beta-Hydroxybutyrate Urine Color Urine Appearance Urine pH Ur Specific [place] Urine Protein Urine Glucose (UA) Urine Ketones Urine Blood Urine Nitrite Ur Leukocyte Esterase Urine RBC Urine WBC Ur Squamous Epith Cells Urine Bacteria Hyaline Casts 03/02/24 03/03/24 03/03/24 21:46 06:53 07:13 MCV 80.1 MCH 25.9 L MCHC 32.4 RDW 14.0 Plt Count 316 MPV 10.6 Immature Gran % (Auto) 0.8 H Neut % (Auto) 84.8 H Lymph % (Auto) 7.4 L Lamb % (Auto) 6.6 Eos % (Auto) 0.1 Baso % (Auto) 0.3 Lymph # (Auto) 1.3 Lamb # (Auto) 1.2 Eos # (Auto) 0.0 Baso # (Auto) 0.1 Abs Immat Gran (auto) 0.14 H Absolute Neuts (auto) 15.2 H Absolute Nucleated RBC 0.000 Nucleated RBC % (auto) 0.0 VBG pH VBG pCO2 VBG pO2 VBG HCO3 VBG O2 Saturation VBG Base Excess Anion Gap 14 Estim Creat Clear Calc 50.2 Estimated GFR 29 POC Glucose 237 H 225 H Random Glucose 225 H Estimat Average Glucose Hemoglobin A1c % Lactic Acid Lactic Acid F/U @ 2Hr Calcium 9.0 Magnesium Total Bilirubin AST ALT Alkaline Phosphatase Total Protein Albumin Lipase Beta-Hydroxybutyrate Urine Color Urine Appearance Urine pH Ur Specific [place] Urine Protein Urine Glucose (UA) Urine Ketones Urine Blood Urine Nitrite Ur Leukocyte Esterase Urine RBC Urine WBC Ur Squamous Epith Cells Urine Bacteria Hyaline Casts Impressions Knee X-Ray 03/02/24 15:27 IMPRESSION: Mild degenerative changes. Abdomen/Pelvis CT 03/02/24 17:45 IMPRESSION: 1. Moderate-sized subcapsular hematoma around the left kidney with some blood in the perinephric space. 2. Large calculi in the left renal pelvis with left-sided pelvocaliectasis and multiple left-sided intrarenal nonobstructing calculi. 3. Other incidental findings as described above. Fleischner guidelines were followed. This critical result was discussed with Dr. Woodruff at 7:39 PM on the day of the exam and it was ascertained that the content and urgency of the report was understood at the time of direct communication. Assessment and Plan (1) Perinephric hematoma: Status: Acute (2) EDUARDO (acute kidney injury): Status: Acute (3) Pyelonephritis: Status: Acute Plan 53yo F with HTN, HLD, DM2, asthma, VSD s/p repair, nephrolithiasis s/p lithotripsy/stenting for staghorn calculus 12/28/23, stent removal/lithotripsy 02/08/24 presenting with hematuria and L flank pain, found to have subcapsular hematoma, persistent renal calculi, and sepsis due to pyleonephritis pyelonephritis - ceftriaxone 03/02-, follow BCx/UCx nephrolithiasis subcapsular hematoma - IV fluids, IV hydromorphone, Urology consult, NPO for operative intervention, avoid heparin EDUARDO/CKD2 - SCr improving, continue IV isotonic saline + hold lisinopril HTN - holding lisinopril as above HLD - statin DM2 with hyperglycemia - A1c 7.4, increase correction-dose lispro R knee pain - likely from arthritis; analgesi as above moderate persistent asthma not in acute exac - conitnue home inhalers mood disorder - escitalopram morbid obesity - diet/exercise counseling VTE ppx - SCDs dispo - eventually home In my clinical judgment, the patient requires continued inpatient hospitalization for the following reasons: IV ABX, operative intervention Total time managing care of this patient today: 45 minutes. Quality Stroke Does the patient have a stroke diagnosis?: No VTE Prior VTE?: No VTE Risk Level:: Medical - moderate - high VTE Device Contraindication: N/A - Device Ordered VTE Drug Contraindication: Treatment Not Indicated
[2024-03-03 11:01] LABS: Glucose, Whole Blood 237 mg/dL (60-115)
--- NOTE | 2024-03-03 16:03 | MHC.CM.PN ---
PT REPORTS SHE LIVES WITH HER AND KIDS, AND IS INDEPENDENT WITH CARE SHE HAS NO SERVICES, NO DME AND WORKS AT [facility] – [place], [place] SHE DECLINES TO COMPLETE A HCP PCP: CINDA GALVEZ DCP: HOME NO SERVICES VIA PRIVATE TRANSPORT
[2024-03-03 16:28] LABS: Glucose, Whole Blood 233 mg/dL (60-115)
[2024-03-03 16:37] LABS: B Type Natriuretic Peptide 471 pg/mL (<100)
[2024-03-03 16:38] LABS: Glucose, Whole Blood 231 mg/dL (60-115)
[2024-03-03] MEDS: Acetaminophen 325 MG TABLET 650 MG PO (16:42)
[2024-03-03] MEDS: cefTRIAXone sodium 2 GM in 0.9 % Sodium Chloride 50 ML IV (16:57)
[2024-03-03] MEDS: Furosemide 40 MG/4 ML VIAL IVPUSH (17:00)
[2024-03-03 17:22] LABS: Hemoglobin 10.9 g/dl (12.0-16.0); Mean Corpuscular HGB Conc 32.1 g/dl (31.0-35.0); Mean Corpuscular Hemoglobin 25.7 pg (27.0-33.0); Mean Corpuscular Volume 80.2 fL (80.0-98.0); Mean Platelet Volume 10.1 fL (9.4-12.3); Platelet Count 330 X10*3/uL (160-400); Red Blood Count 4.24 X10*6/uL (4.20-5.50); Red Cell Distribution Width 14.3 % (11.0-16.0); White Blood Count 20.3 X10*3/uL (4.8-10.8)
[2024-03-03 17:24] LABS: Venous Blood Gas Refer to POC result
[2024-03-03 17:25] LABS: VBG Base Excess -0.5 mmol/L; VBG HCO3 25 mmol/L (22-26); VBG pCO2 45 mmHg; VBG pH 7.35 (7.32-7.43); VBG pO2 95 mmHg
[2024-03-03 17:34] LABS: Lactic Acid 0.9 mmol/L (0.5-2.0)
[2024-03-03 17:37] LABS: Anion Gap 13 (12-20); Blood Urea Nitrogen 30 mg/dL (9-16); Calcium 9.2 mg/dL (8.4-10.2); Carbon Dioxide 24 mmol/L (22-29); Chloride 105 mmol/L (96-108); Creatinine Clr Calc Pharmacy 44.4; Estimated Glomerular Filt Rate 25; Glucose Random 257 mg/dL (60-115); Potassium 4.1 mmol/L (3.3-5.1); Sodium 138 mmol/L (135-145)
--- NOTE | 2024-03-03 18:05 | PC.NURSE ---
Took over care of this pt at ~1500. Pt drowsy, reported feeling extra tired . Noted to be desating on RA 86-88%. Dr. Gamble notified and placed on 2L NC sats up to 92%. Pt also very diaphoretic, red in the face. No fever noted. Labs and CXR ordered and placed on telemetry. Decision made to tx pt to [facility] [place]. Report called to soil field technician Celina. Transported to [id number] with soil field technicianDNANY Castle and DANNY Mendoza.
--- NOTE | 2024-03-03 18:32 | P.CNUR_ITS ---
History of Present Illness Consult details Consult date: 03/03/24 Narrative: h/o Left staghorn calculus. The patient had ureteroscopy on 02/26/2024. She presented with left flank pain, fever. CT imaging notes subcapsular hematoma. Comobidity, diabetes, morbid obesity. Review of Systems 2 Review of Systems: Yes all other systems are reviewed and are negative Constitutional: Constitutional: Reports no additional constitutional complaints Eyes: Eyes: Reports no additional eye complaints ENT: Reports system reviewed and no additional complaints, except as documented Cardiovascular: Cardiovascular: Reports no additional cardiovascular complaints Respiratory: Respiratory: Reports no additional respiratory complaints Gastrointestinal: Gastrointestinal: Reports no additional gastrointestinal complaints Genitourinary: Genitourinary: Reports as per HPI Musculoskeletal: Musculoskeletal: Reports no additional musculoskeletal complaints Integumentary/Breasts: Skin/Breast: Reports system reviewed and no additional complaints, except as docu Neurologic: Reports system reviewed and no additional complaints, except as documented Psychiatric: Psychiatric: Reports no additional psychiatric complaints Endocrine: Endocrine: Reports no additional endocrine complaints Hematologic/Lymphatic: Hematologic/Lymphatic: Reports no additional hematologic/lymphatic complaints Allergic/Immunologic: Allergic/Immunologic: Reports no additional allergic/immunologic complaints [facility] Past Medical History Medical History Asthma Benign paroxysmal positional vertigo Obesity Cataract CKD (chronic kidney disease) Depression HLD (hyperlipidemia) Diabetes HTN (hypertension) Sleep apnea History of kidney stones History of in vitro fertilization Family History Family History Father Cancer Mother Epilepsia Dementia Brother Drug abuse Bipolar 1 disorder Son No problems noted. Surgical History Surgical History H/O breast biopsy History of ureteroscopy Hx of ectopic History of open heart surgery Social History Social History Household Members: Spouse and Children Housing: House Do you presently have visiting nurse or other home services: No Alcohol intake: never Patient Tobacco Use Status: Never used Tobacco service: No Meds Allergies Allergy/AdvReac Type Severity Reaction Status Date / Time sulfamethoxazole Allergy Mild Hives Verified 03/02/24 14:04 [From Bactrim] trimethoprim [From Bactrim] Allergy Unknown Anaphylaxis Verified 02/08/24 13:31 FISH Allergy Unknown Anaphylaxis Uncoded 12/28/23 12:58 Active Medications: Current Medications Acetaminophen (Acetaminophen 325 Mg Tablet) 650 mg PO Q6H PRN PRN Reason: Pain, Mild (Pain Scale 1-3) Last Admin: 03/03/24 16:42 Dose: 650 mg Albuterol Sulfate (Albuterol Sulfate 90 Mcg 8 Gm Inhaler) 2 puff INHALE RQ4H PRN PRN Reason: Shortness Of Breath Or Wheezing Escitalopram Oxalate (Escitalopram Oxalate 20 Mg Tablet) 20 mg PO DAILY [facility] Last Admin: 03/03/24 08:35 Dose: 20 mg Fluticasone/Vilanterol (Fluticasone/Vilanterol 200/25 Blst.W.Dev) 1 puff INHALE DAILY [facility] Last Admin: 03/03/24 07:50 Dose: 1 puff Glucose (Glucose Gel 15 Gm Gel..Gram.) 15 gm PO Q15M PRN; Protocol PRN Reason: per Hypoglycemia Standing Ord. Hydromorphone HCl (Hydromorphone Hcl 1 Mg/Ml Syringe) 1 mg IVPUSH Q4H PRN; Protocol PRN Reason: severe pain Last Admin: 03/03/24 08:45 Dose: 1 mg Dextrose (D10) 250 mls @ 750 mls/hr IV Q15M PRN; Protocol PRN Reason: per Hypoglycemia Standing Ord. Sodium Chloride (Ns) 1,000 mls @ 125 mls/hr IVCONT .Q8H [facility] Last Admin: 03/03/24 16:52 Dose: Not Given Ceftriaxone Sodium 2 gm/ (Sodium Chloride) 50 mls @ 100 mls/hr IV Q24H [facility] Last Infusion: 03/03/24 17:35 Dose: Infused Insulin Human Lispro (Insulin Lispro 100 Unit/Ml 3 Ml Vial) 0 unit SUBCUT QIDACHS [facility]; Protocol Last Admin: 03/03/24 16:59 Dose: 6 unit Meclizine HCl (Meclizine Hcl 25 Mg Tablet) 25 mg PO DAILY [facility] Last Admin: 03/03/24 08:35 Dose: 25 mg Melatonin (Melatonin 3 Mg Tablet) 6 mg PO BEDTIME PRN PRN Reason: Insomnia Montelukast Sodium (Montelukast Sodium 10 Mg Tablet) 10 mg PO DAILY [facility] Last Admin: 03/03/24 08:35 Dose: 10 mg Non-Formulary Medication (Norethindrone Acetate) 5 mg PO DAILY [facility] Ondansetron HCl (Ondansetron Hcl 4 Mg/2 Ml Vial) 4 mg IVPUSH Q8H PRN PRN Reason: Nausea and Vomiting Sodium Chloride (0.9 % Sodium Chloride Flush 3 Ml Syringe) 3 ml IVFLUSH QSHIFT [facility] Last Admin: 03/03/24 16:47 Dose: Not Given Home Medications ?Medication ?Instructions ?Recorded ?Confirmed ?Last Taken ?Type albuterol sulfate 90 mcg/actuation 2 puff inhalation Q4-6H PRN 09/17/23 03/02/24 Unknown History aerosol inhaler (Ventolin HFA) Shortness Of Breath Or Wheezing budesonide-formoterol HFA 160 2 puff inhalation BID 09/17/23 03/02/24 Unknown History mcg-4.5 mcg/actuation aerosol inhaler (Symbicort) citalopram 40 mg tablet 40 mg PO DAILY 09/17/23 03/02/24 Unknown History lisinopril 20 mg tablet 20 mg PO DAILY 09/17/23 03/02/24 Unknown History meclizine 25 mg tablet 25 mg PO DAILY Vertigo 09/17/23 03/02/24 Unknown History metformin 1,000 mg tablet 1,000 mg PO BID 09/17/23 03/02/24 Unknown History montelukast 10 mg tablet 10 mg PO DAILY 09/17/23 03/02/24 Unknown History norethindrone acetate 5 mg tablet 5 mg PO DAILY 09/17/23 03/02/24 Unknown History simvastatin 40 mg tablet 40 mg PO BEDTIME 09/17/23 03/02/24 Unknown History tirzepatide 7.5 mg/0.5 mL 7.5 mg subcut QWEEK 03/02/24 03/02/24 Unknown History subcutaneous pen injector (Edison) Physical Exam 2 Vital Signs: Vital Signs: Last Vital Signs Temp 97.6 F 03/03/24 15:45 Pulse 110 H 03/03/24 15:45 Resp 24 H 03/03/24 15:45 BP 114/76 03/03/24 15:45 Pulse Ox 93 03/03/24 15:45 O2 Del Method Nasal Cannula 03/03/24 15:45 O2 Flow Rate 2 03/03/24 15:45 BMI result Body Mass Index 48.4 Const: General: cooperative, healthy appearing, no acute distress and diaphoretic Nutritional Appearance: obese Orientation/consciousness: p atient oriented x3 HEENT: Head: Yes normal to inspection, Yes normocephalic and Yes atraumatic Eyes: Conjunctivae: conjunctivae normal Neck: Neck: Yes normal visual inspection and Yes trachea midline Chest: Chest palpation & inspection: normal inspection of the chest Resp: Effort & Inspection: normal respiratory effort Cardio: Rate: regular rate GI: Inspection: Yes normal to inspection Palpation (GI): Soft to palpation : General: Yes CVA tenderness (left) Back/Spine/Pelvis: Back: CVA tenderness (left) Skin: General skin exam: no rashes or lesions noted Neuro: General: patient oriented x3 Psych: Appearance: grossly normal Results Labs 03/03/24 17:14 03/03/24 17:14 Labs: Abnormal lab results 03/02/24 03/02/24 03/03/24 Range/Units 20:12 21:46 06:53 WBC 18.0 H (4.8-10.8) X10*3/uL Hgb 11.2 L (12.0-16.0) g/dl Hct 34.6 L (37.0-47.0) % MCH 25.9 L (27.0-33.0) pg Immature Gran % (Auto) 0.8 H (0.0-0.4) % Neut % (Auto) 84.8 H (45-73) % Lymph % (Auto) 7.4 L (20-40) % Abs Immat Gran (auto) 0.14 H (0.00-0.03) X10*3/uL Absolute Neuts (auto) 15.2 H (2.0-8.3) x10*3/uL BUN 25 H (9-16) mg/dL Creatinine 1.84 H (0.5-1.4) mg/dL POC Glucose 266 H 237 H (60-115) mg/dL Random Glucose 225 H (60-115) mg/dL B-Natriuretic Peptide (<100) pg/mL 03/03/24 03/03/24 03/03/24 Range/Units 07:13 10:52 16:05 WBC (4.8-10.8) X10*3/uL Hgb (12.0-16.0) g/dl Hct (37.0-47.0) % MCH (27.0-33.0) pg Immature Gran % (Auto) (0.0-0.4) % Neut % (Auto) (45-73) % Lymph % (Auto) (20-40) % Abs Immat Gran (auto) (0.00-0.03) X10*3/uL Absolute Neuts (auto) (2.0-8.3) x10*3/uL BUN (9-16) mg/dL Creatinine (0.5-1.4) mg/dL POC Glucose 225 H 237 H (60-115) mg/dL Random Glucose (60-115) mg/dL B-Natriuretic Peptide 471 H (<100) pg/mL 03/03/24 03/03/24 03/03/24 Range/Units 16:07 16:24 17:14 WBC 20.3 H (4.8-10.8) X10*3/uL Hgb 10.9 L (12.0-16.0) g/dl Hct 34.0 L (37.0-47.0) % MCH 25.7 L (27.0-33.0) pg Immature Gran % (Auto) (0.0-0.4) % Neut % (Auto) (45-73) % Lymph % (Auto) (20-40) % Abs Immat Gran (auto) (0.00-0.03) X10*3/uL Absolute Neuts (auto) (2.0-8.3) x10*3/uL BUN 30 H (9-16) mg/dL Creatinine 2.08 H (0.5-1.4) mg/dL POC Glucose 233 H 231 H (60-115) mg/dL Random Glucose 257 H (60-115) mg/dL B-Natriuretic Peptide (<100) pg/mL Short CBC 03/03/24 03/03/24 Range/Units 06:53 17:14 WBC 18.0 H 20.3 H (4.8-10.8) X10*3/uL Hgb 11.2 L 10.9 L (12.0-16.0) g/dl Hct 34.6 L 34.0 L (37.0-47.0) % Plt Count 316 330 (160-400) X10*3/uL BMP 03/03/24 03/03/24 06:53 17:14 Sodium 138 138 Potassium 3.5 4.1 Chloride 103 105 Carbon Dioxide 25 24 BUN 25 H 30 H Creatinine 1.84 H 2.08 H Calcium 9.0 9.2 Urine 03/02/24 Range/Units 15:56 Urine Color Dark Yellow Urine Appearance Turbid Urine pH 5.0 (5.0-9.0) Ur Specific [place] >= 1.030 H (1.005-1.025) Urine Protein 300 (3+) H (Neg-Trace) mg/dL Urine Glucose (UA) >=1000 H (Negative) mg/dL Imaging Abdomen CT scan report/results: report reviewed and image reviewed CT scan - pelvis: report reviewed and image reviewed Additional studies: Date of Service: 03/02/24 EXAMINATION: CT ABDOMEN AND PELVIS WITHOUT CONTRAST CLINICAL INFORMATION: Fever after urologic procedure COMPARISON: Cystoscopy and left ureteroscopy 02/08/2024, CT abdomen pelvis 08/13/2023 TECHNIQUE: Multidetector volumetric imaging was performed from the superior aspect of the liver through the pubic symphysis. Sagittal and coronal reformatted images were obtained on the technologist's workstation. This CT examination was performed using dose optimization techniques as appropriate, variously including the following: *Automated exposure control *Adjustment of mA and/or kV according to patient size (this includes techniques or standardized protocols for targeted exams where dose is matched to indication/reason for exam; i.e. extremities or head) *Use of iterative reconstruction technique DLP: 1139 mGy-cm FINDINGS: LUNG BASES: The visualized lung bases are unremarkable. LIVER, GALLBLADDER, AND BILIARY TREE: The liver is normal in size, shape, and attenuation. No focal hepatic lesion or biliary ductal dilatation is present. The gallbladder is unremarkable with no evidence of radiopaque gallstones, gallbladder wall thickening, or obvious pericholecystic inflammatory changes. PANCREAS: Unremarkable. SPLEEN: Unremarkable. ADRENAL GLANDS: Unremarkable. KIDNEYS AND URETERS: Right: At the upper pole the right kidney there is a 1.8 cm benign cyst which needs no additional imaging or follow-up. The kidney otherwise appears unremarkable without stones, hydronephrosis or suspicious masses. The right ureter is nondilated. Left: There is a moderate-sized subcapsular hematoma around the left kidney with a rind as thick as 2 cm. Some blood is also present in the perinephric space. A small bilateral parotid surrounds the proximal left ureter. The left ureter is not dilated. Large staghorn type calculi are present in the left renal pelvis with the largest measuring 2.1 cm there is left-sided pelvocaliectasis and multiple intrarenal nonobstructing calculi present. BLADDER: Unremarkable. GASTROINTESTINAL TRACT: The small and large bowel are unremarkable. The appendix is unremarkable. ABDOMINAL WALL: No significant hernia is appreciated. LYMPH NODES: No retroperitoneal lymphadenopathy. VASCULAR: Unremarkable. PELVIC VISCERA: The uterus and adnexa are unremarkable. OSSEOUS STRUCTURES: Mild degenerative changes are present in the lower thoracic spine. No bony destructive lesions. IMPRESSION: 1. Moderate-sized subcapsular hematoma around the left kidney with some blood in the perinephric space. 2. Large calculi in the left renal pelvis with left-sided pelvocaliectasis and multiple left-sided intrarenal nonobstructing calculi. 3. Other incidental findings as described above. Assessment and Plan (1) Perinephric hematoma: Status: Acute (2) EDUARDO (acute kidney injury): Status: Acute (3) Pyelonephritis: Status: Acute (4) Staghorn calculus: Status: Inactive (5) Septic shock due to urinary tract infection: Status: Acute Plan cystoscopy left ureteral stent Procedures Date of Service Date of Service: 03/03/24
--- NOTE | 2024-03-03 20:10 | HO.ANESPROP2 ---
HPI - Anesthesia Eval Consult details Narrative: Left ureter obstruction bvy stone PMFSH Active Problems Active Problems: All Active Problems Septic shock due to urinary tract infection (Acute) Perinephric hematoma (Acute) Hyperglycemia (Acute) EDUARDO (acute kidney injury) (Acute) Pyelonephritis (Acute) Complex renal cyst (Acute) Kidney stone on left side (Acute) Past Medical History Medical History Asthma Benign paroxysmal positional vertigo Obesity Cataract CKD (chronic kidney disease) Depression HLD (hyperlipidemia) Diabetes HTN (hypertension) Sleep apnea History of kidney stones History of in vitro fertilization Family History Family History Father Cancer Mother Epilepsia Dementia Brother Drug abuse Bipolar 1 disorder Son No problems noted. Family history of problems with anesthesia: No Surgical History Surgical History H/O breast biopsy History of ureteroscopy Hx of ectopic History of open heart surgery History of Problems with Anesthesia: No Social History Social History Household Members: Spouse and Children Housing: House Do you presently have visiting nurse or other home services: No Alcohol intake: never Patient Tobacco Use Status: Never used Tobacco service: No Meds Allergies Allergy/AdvReac Type Severity Reaction Status Date / Time sulfamethoxazole Allergy Mild Hives Verified 03/02/24 14:04 [From Bactrim] trimethoprim [From Bactrim] Allergy Unknown Anaphylaxis Verified 02/08/24 13:31 FISH Allergy Unknown Anaphylaxis Uncoded 12/28/23 12:58 Active Medications: Current Medications Acetaminophen (Acetaminophen 325 Mg Tablet) 650 mg PO Q6H PRN PRN Reason: Pain, Mild (Pain Scale 1-3) Last Admin: 03/03/24 16:42 Dose: 650 mg Albuterol Sulfate (Albuterol Sulfate 90 Mcg 8 Gm Inhaler) 2 puff INHALE RQ4H PRN PRN Reason: Shortness Of Breath Or Wheezing Escitalopram Oxalate (Escitalopram Oxalate 20 Mg Tablet) 20 mg PO DAILY NUBIA Last Admin: 03/03/24 08:35 Dose: 20 mg Fluticasone/Vilanterol (Fluticasone/Vilanterol 200/25 Blst.W.Dev) 1 puff INHALE DAILY [facility] [place] Last Admin: 03/03/24 07:50 Dose: 1 puff Glucose (Glucose Gel 15 Gm Gel..Gram.) 15 gm PO Q15M PRN; Protocol PRN Reason: per Hypoglycemia Standing Ord. Hydromorphone HCl (Hydromorphone Hcl 1 Mg/Ml Syringe) 1 mg IVPUSH Q4H PRN; Protocol PRN Reason: severe pain Last Admin: 03/03/24 08:45 Dose: 1 mg Dextrose (D10) 250 mls @ 750 mls/hr IV Q15M PRN; Protocol PRN Reason: per Hypoglycemia Standing Ord. Sodium Chloride (Ns) 1,000 mls @ 125 mls/hr IVCONT .Q8H [facility] [place] Last Admin: 03/03/24 16:52 Dose: Not Given Ceftriaxone Sodium 2 gm/ (Sodium Chloride) 50 mls @ 100 mls/hr IV Q24H [facility] [place] Last Infusion: 03/03/24 17:35 Dose: Infused Gentamicin Sulfate 160 mg/ (Sodium Chloride) 104 mls @ 100 mls/hr IV ONCE ONE Stop: 03/03/24 20:18 Insulin Human Lispro (Insulin Lispro 100 Unit/Ml 3 Ml Vial) 0 unit SUBCUT QIDACHS [facility] [place]; Protocol Last Admin: 03/03/24 16:59 Dose: 6 unit Meclizine HCl (Meclizine Hcl 25 Mg Tablet) 25 mg PO DAILY [facility] [place] Last Admin: 03/03/24 08:35 Dose: 25 mg Melatonin (Melatonin 3 Mg Tablet) 6 mg PO BEDTIME PRN PRN Reason: Insomnia Montelukast Sodium (Montelukast Sodium 10 Mg Tablet) 10 mg PO DAILY [facility] [place] Last Admin: 03/03/24 08:35 Dose: 10 mg Non-Formulary Medication (Norethindrone Acetate) 5 mg PO DAILY [facility] [place] Ondansetron HCl (Ondansetron Hcl 4 Mg/2 Ml Vial) 4 mg IVPUSH Q8H PRN PRN Reason: Nausea and Vomiting Sodium Chloride (0.9 % Sodium Chloride Flush 3 Ml Syringe) 3 ml IVFLUSH QSHIFT [facility] [place] Last Admin: 03/03/24 16:47 Dose: Not Given Home Medications ?Medication ?Instructions ?Recorded ?Confirmed ?Last Taken ?Type albuterol sulfate 90 mcg/actuation 2 puff inhalation Q4-6H PRN 09/17/23 03/02/24 Unknown History aerosol inhaler (Ventolin HFA) Shortness Of Breath Or Wheezing budesonide-formoterol HFA 160 2 puff inhalation BID 09/17/23 03/02/24 Unknown History mcg-4.5 mcg/actuation aerosol inhaler (Symbicort) citalopram 40 mg tablet 40 mg PO DAILY 09/17/23 03/02/24 Unknown History lisinopril 20 mg tablet 20 mg PO DAILY 09/17/23 03/02/24 Unknown History meclizine 25 mg tablet 25 mg PO DAILY Vertigo 09/17/23 03/02/24 Unknown History metformin 1,000 mg tablet 1,000 mg PO BID 09/17/23 03/02/24 Unknown History montelukast 10 mg tablet 10 mg PO DAILY 09/17/23 03/02/24 Unknown History norethindrone acetate 5 mg tablet 5 mg PO DAILY 09/17/23 03/02/24 Unknown History simvastatin 40 mg tablet 40 mg PO BEDTIME 09/17/23 03/02/24 Unknown History tirzepatide 7.5 mg/0.5 mL 7.5 mg subcut QWEEK 03/02/24 03/02/24 Unknown History subcutaneous pen injector (Mounjaro) Exam Height,Weight and Vital Signs: Height 5 ft 6 in Weight 136.078 kg Last Vital Signs Temp 96.9 F 03/03/24 20:00 Pulse 80 03/03/24 20:00 Resp 18 03/03/24 20:00 BP 125/72 03/03/24 20:00 Pulse Ox 95 03/03/24 20:00 O2 Del Method Nasal Cannula 03/03/24 20:00 O2 Flow Rate 2 03/03/24 20:00 Pertinent Lab Results Pertinent Lab Results: Laboratory Tests 03/02/24 03/02/24 03/02/24 15:56 16:18 16:46 WBC 18.6 H RBC 4.66 D Hgb 11.9 L D Hct 36.2 L D MCV 77.7 L MCH 25.5 L MCHC 32.9 RDW 13.9 Plt Count 382 MPV 10.3 Immature Gran % (Auto) 0.8 H Neut % (Auto) 84.6 H Lymph % (Auto) 8.5 L [place] % (Auto) 5.8 Eos % (Auto) 0.1 Baso % (Auto) 0.2 Lymph # (Auto) 1.6 [place] # (Auto) 1.1 Eos # (Auto) 0.0 Baso # (Auto) 0.0 Abs Immat Gran (auto) 0.15 H Absolute Neuts (auto) 15.7 H Absolute Nucleated RBC 0.000 Nucleated RBC % (auto) 0.0 VBG pH VBG pCO2 VBG pO2 VBG HCO3 VBG O2 Saturation VBG Base Excess Sodium 133 L Potassium 3.7 Chloride 98 Carbon Dioxide 23 Anion Gap 16 BUN 26 H Creatinine 2.01 H Estim Creat Clear Calc 46.0 Estimated GFR 26 POC Glucose 367 H* Random Glucose 418 H* Estimat Average Glucose 166 Hemoglobin A1c % 7.4 H Lactic Acid 2.1 H* Lactic Acid F/U @ 2Hr Calcium 9.3 Magnesium 1.9 Total Bilirubin 1.1 H AST 8 ALT 13 Alkaline Phosphatase 123 H B-Natriuretic Peptide Total Protein 7.7 Albumin 3.7 Lipase 20 Beta-Hydroxybutyrate 0.06 Urine Color Dark Yellow Urine Appearance Turbid Urine pH 5.0 Ur Specific [place] >= 1.030 H Urine Protein 300 (3+) H Urine Glucose (UA) >=1000 H Urine Ketones Trace Urine Blood Large (3+) H Urine Nitrite Negative Ur Leukocyte Esterase Trace H Urine RBC 6-10 H Urine WBC 0-5 Ur Squamous Epith Cells >20 Urine Bacteria 3+ Hyaline Casts 11-20 03/02/24 03/02/24 03/02/24 16:48 18:21 20:12 WBC RBC Hgb Hct MCV MCH MCHC RDW Plt Count MPV Immature Gran % (Auto) Neut % (Auto) Lymph % (Auto) [place] % (Auto) Eos % (Auto) Baso % (Auto) Lymph # (Auto) [place] # (Auto) Eos # (Auto) Baso # (Auto) Abs Immat Gran (auto) Absolute Neuts (auto) Absolute Nucleated RBC Nucleated RBC % (auto) VBG pH 7.49 H VBG pCO2 34 VBG pO2 133 VBG HCO3 26 VBG O2 Saturation 99.0 VBG Base Excess 3.7 Sodium Potassium Chloride Carbon Dioxide Anion Gap BUN Creatinine Estim Creat Clear Calc Estimated GFR POC Glucose 266 H Random Glucose Estimat Average Glucose Hemoglobin A1c % Lactic Acid Lactic Acid F/U @ 2Hr 1.0 Calcium Magnesium Total Bilirubin AST ALT Alkaline Phosphatase B-Natriuretic Peptide Total Protein Albumin Lipase Beta-Hydroxybutyrate Urine Color Urine Appearance Urine pH Ur Specific [place] Urine Protein Urine Glucose (UA) Urine Ketones Urine Blood Urine Nitrite Ur Leukocyte Esterase Urine RBC Urine WBC Ur Squamous Epith Cells Urine Bacteria Hyaline Casts 03/02/24 03/03/24 03/03/24 21:46 06:53 07:13 WBC 18.0 H RBC 4.32 Hgb 11.2 L Hct 34.6 L MCV 80.1 MCH 25.9 L MCHC 32.4 RDW 14.0 Plt Count 316 MPV 10.6 Immature Gran % (Auto) 0.8 H Neut % (Auto) 84.8 H Lymph % (Auto) 7.4 L [place] % (Auto) 6.6 Eos % (Auto) 0.1 Baso % (Auto) 0.3 Lymph # (Auto) 1.3 [place] # (Auto) 1.2 Eos # (Auto) 0.0 Baso # (Auto) 0.1 Abs Immat Gran (auto) 0.14 H Absolute Neuts (auto) 15.2 H Absolute Nucleated RBC 0.000 Nucleated RBC % (auto) 0.0 VBG pH VBG pCO2 VBG pO2 VBG HCO3 VBG O2 Saturation VBG Base Excess Sodium 138 Potassium 3.5 Chloride 103 Carbon Dioxide 25 Anion Gap 14 BUN 25 H Creatinine 1.84 H Estim Creat Clear Calc 50.2 Estimated GFR 29 POC Glucose 237 H 225 H Random Glucose 225 H Estimat Average Glucose Hemoglobin A1c % Lactic Acid Lactic Acid F/U @ 2Hr Calcium 9.0 Magnesium Total Bilirubin AST ALT Alkaline Phosphatase B-Natriuretic Peptide Total Protein Albumin Lipase Beta-Hydroxybutyrate Urine Color Urine Appearance Urine pH Ur Specific [place] Urine Protein Urine Glucose (UA) Urine Ketones Urine Blood Urine Nitrite Ur Leukocyte Esterase Urine RBC Urine WBC Ur Squamous Epith Cells Urine Bacteria Hyaline Casts 03/03/24 03/03/24 03/03/24 10:52 16:05 16:07 WBC RBC Hgb Hct MCV MCH MCHC RDW Plt Count MPV Immature Gran % (Auto) Neut % (Auto) Lymph % (Auto) [place] % (Auto) Eos % (Auto) Baso % (Auto) Lymph # (Auto) [place] # (Auto) Eos # (Auto) Baso # (Auto) Abs Immat Gran (auto) Absolute Neuts (auto) Absolute Nucleated RBC Nucleated RBC % (auto) VBG pH VBG pCO2 VBG pO2 VBG HCO3 VBG O2 Saturation VBG Base Excess Sodium Potassium Chloride Carbon Dioxide Anion Gap BUN Creatinine Estim Creat Clear Calc Estimated GFR POC Glucose 237 H 233 H Random Glucose Estimat Average Glucose Hemoglobin A1c % Lactic Acid Lactic Acid F/U @ 2Hr Calcium Magnesium Total Bilirubin AST ALT Alkaline Phosphatase B-Natriuretic Peptide 471 H Total Protein Albumin Lipase Beta-Hydroxybutyrate Urine Color Urine Appearance Urine pH Ur Specific [place] Urine Protein Urine Glucose (UA) Urine Ketones Urine Blood Urine Nitrite Ur Leukocyte Esterase Urine RBC Urine WBC Ur Squamous Epith Cells Urine Bacteria Hyaline Casts 03/03/24 03/03/24 03/03/24 16:24 17:13 17:14 WBC 20.3 H RBC 4.24 Hgb 10.9 L Hct 34.0 L MCV 80.2 MCH 25.7 L MCHC 32.1 RDW 14.3 Plt Count 330 MPV 10.1 Immature Gran % (Auto) Neut % (Auto) Lymph % (Auto) [place] % (Auto) Eos % (Auto) Baso % (Auto) Lymph # (Auto) [place] # (Auto) Eos # (Auto) Baso # (Auto) Abs Immat Gran (auto) Absolute Neuts (auto) Absolute Nucleated RBC 0.000 Nucleated RBC % (auto) 0.0 VBG pH VBG pCO2 VBG pO2 VBG HCO3 VBG O2 Saturation VBG Base Excess Sodium 138 Potassium 4.1 Chloride 105 Carbon Dioxide 24 Anion Gap 13 BUN 30 H Creatinine 2.08 H Estim Creat Clear Calc 44.4 Estimated GFR 25 POC Glucose 231 H Random Glucose 257 H Estimat Average Glucose Hemoglobin A1c % Lactic Acid 0.9 Lactic Acid F/U @ 2Hr Calcium 9.2 Magnesium Total Bilirubin AST ALT Alkaline Phosphatase B-Natriuretic Peptide Total Protein Albumin Lipase Beta-Hydroxybutyrate Urine Color Urine Appearance Urine pH Ur Specific [place] Urine Protein Urine Glucose (UA) Urine Ketones Urine Blood Urine Nitrite Ur Leukocyte Esterase Urine RBC Urine WBC Ur Squamous Epith Cells Urine Bacteria Hyaline Casts 03/03/24 17:19 WBC RBC Hgb Hct MCV MCH MCHC RDW Plt Count MPV Immature Gran % (Auto) Neut % (Auto) Lymph % (Auto) [place] % (Auto) Eos % (Auto) Baso % (Auto) Lymph # (Auto) [place] # (Auto) Eos # (Auto) Baso # (Auto) Abs Immat Gran (auto) Absolute Neuts (auto) Absolute Nucleated RBC Nucleated RBC % (auto) VBG pH 7.35 VBG pCO2 45 VBG pO2 95 VBG HCO3 25 VBG O2 Saturation 98.0 VBG Base Excess -0.5 Sodium Potassium Chloride Carbon Dioxide Anion Gap BUN Creatinine Estim Creat Clear Calc Estimated GFR POC Glucose Random Glucose Estimat Average Glucose Hemoglobin A1c % Lactic Acid Lactic Acid F/U @ 2Hr Calcium Magnesium Total Bilirubin AST ALT Alkaline Phosphatase B-Natriuretic Peptide Total Protein Albumin Lipase Beta-Hydroxybutyrate Urine Color Urine Appearance Urine pH Ur Specific [place] Urine Protein Urine Glucose (UA) Urine Ketones Urine Blood Urine Nitrite Ur Leukocyte Esterase Urine RBC Urine WBC Ur Squamous Epith Cells Urine Bacteria Hyaline Casts Airway Mallampati Class: II TM Dist: >3cm Neck ROM: Full Loose/Missing/Broken Teeth: No Heart: RRR Lungs: CTA Assessment and Plan Assessment Anesthesia Assessment: Anesthesia Plan Discussed and Chart Reviewed Final Anesthetic Review Family History of Problems with Anesthesia: No History of Problems with Anesthesia: No NPO: Yes ASA Class: III and Emergency Final Preanesthetic Review: No Changes in Pt Med Stat, Meds/Allgs Chart Reviewed, Consent Obtained/Reviewed and Anes Risks/Benef Reviewed Patient Risk: High Procedure Risk: Low Anesthetic Plan Anesthetic Plan: GA Disposition: Standard PACU
[2024-03-03 20:25] LABS: Glucose, Whole Blood 215 mg/dL (60-115)
--- NOTE | 2024-03-03 21:18 | P.OP_ITS ---
Operative Note Operative Note Date of Service: 03/03/24 Narrative: PreOperative Diagnosis:?? Acute kidney injury, left obstructive uropathy, left sub scapular hematoma, left staghorn calculus Post Operative Diagnosis:?? ?Acute kidney injury, left obstructive uropathy, left sub scapular hematoma, left staghorn calculus Procedure: - cystoscopy, left retrograde - stent insertion, size 6 by 22-32 cm multi length Surgeon:?Dr Justo Rodríguez Anesthesia:? General Indications for procedure: UTI sepsis, acute kidney injury, obstructive ur opathy Procedure: After informed consent was verified the patient was brought to the operating placed on the OR table in supine position.? General Anesthesia was administered per protocol.? The patient was placed in lithotomy position, prepped and draped in the usual sterile fashion.? Safety pause time-out and side of surgery confirmed.? Antibiotics confirmed. A 22 Jordanian cystoscope was inserted transurethrally, The bladder was visualized.? Both ureteric orifices were in normal position. The? left ureteric orifice was cannulated? and a retrograde examination was performed, there was obstruction right at the UPJ as contrast was not able to get into the renal pelvis. A hydrophilic guidewire was able to be placed beyond the obstructed area into the renal pelvis under fluoroscopy. The ureteral catheter was then passed over the guidewire into the renal pelvis and retrograde was done confirming the landmarks of the pelvis and calyces. The guidewire was replaced and the open-ended ureteral catheter was removed. A six fr by multi length cm ureteral stent was passed over the guide wire under fluoroscopic guidance. The guide wire was removed. The bladder was emptied.? The rigid cystoscope was removed. ? A 16 Jordanian catheter was placed to gravity drainage. The patient tolerated the procedure well and was brought to the recovery room in stable condition. Complications: None Drains: Ureteral stent and 16 Jordanian Gonzalez as dictated above
[2024-03-03] MEDS: 0.9 % Sodium Chloride Flush 3 ML SYRINGE IVFLUSH (22:47)
[2024-03-04] VITALS (9 sets, daily range): BP systolic 117–171; BP diastolic 62–88; PULSE 86–95; RESP 16–20; TEMP 36.1–37.2; O2SAT 93–100
[2024-03-04 04:44] LABS: Glucose, Whole Blood 207 mg/dL (60-115)
[2024-03-04 06:26] LABS: Hematocrit 34.4 % (37.0-47.0); Hemoglobin 10.9 g/dl (12.0-16.0); Mean Corpuscular HGB Conc 31.7 g/dl (31.0-35.0); Mean Corpuscular Hemoglobin 25.8 pg (27.0-33.0); Mean Corpuscular Volume 81.3 fL (80.0-98.0); Mean Platelet Volume 10.3 fL (9.4-12.3); Platelet Count 335 X10*3/uL (160-400); Red Blood Count 4.23 X10*6/uL (4.20-5.50); Red Cell Distribution Width 14.5 % (11.0-16.0); White Blood Count 17.2 X10*3/uL (4.8-10.8)
[2024-03-04 06:45] LABS: Anion Gap 16 (12-20); Blood Urea Nitrogen 38 mg/dL (9-16); Calcium 9.4 mg/dL (8.4-10.2); Carbon Dioxide 26 mmol/L (22-29); Chloride 104 mmol/L (96-108); Creatinine Clr Calc Pharmacy 43.9; Estimated Glomerular Filt Rate 25; Glucose Random 180 mg/dL (60-115); Potassium 3.9 mmol/L (3.3-5.1); Sodium 142 mmol/L (135-145)
--- NOTE | 2024-03-04 07:00 | CA_ITS ---
Transthoracic Echocardiogram Patient (Last, First, Middle): Gabriela Fernández E Gender: Female Date of : 1970 Age: 53 Procedure Date: 03/04/2024 Procedure Type: Transthoracic Echocardiogram Location: [facility] [place] Height: 167.64 cm Weight: 136.08 kg BSA: 2.38 m2 Heart Rate: 84 bpm BP: 141 / 66 mmHg See Supervisor: SB Referring MD: Henny Gamble MD Symptoms: elevated BNP Study Quality: Adequate w contrast ECG Rhythm: Sinus Conclusions: - Normal left ventricular cavity size. There is normal left ventricular wall thickness. The left ventricular systolic function is low normal. The visually estimated ejection fraction is between 50-55%. - Normal right ventricular cavity size. There is mildly decreased right ventricular systolic function. - Technically limited study. Findings Procedure Information Contrast agent, definity, is being given per protocol without apparent complications. The quality of the study was technically difficult. The study quality is limited by patients body habitus. Left Ventricle Normal left ventricular cavity size. There is normal left ventricular wall thickness. The left ventricular systolic function is low normal. The visually estimated ejection fraction is between 50-55%. There is no evidence of regional wall motion abnormalities. There is paradoxical septal motion consistent with a left bundle branch block. Diastolic function is normal for age. Right Ventricle Normal right ventricular cavity size. There is mildly decreased right ventricular systolic function. Atria The left atrium is likely dilated. The right atrium is mildly dilated. Aortic Valve The aortic valve was not well visualized. There is no aortic valve stenosis. There is no aortic valve regurgitation. Mitral Valve Likely normal mitral valve structure and function. There is no mitral valve regurgitation. There is no mitral valve stenosis. Pulmonic Valve The pulmonic valve is likely normal. Tricuspid Valve Likely normal tricuspid valve structure and function. Tricuspid regurgitation envelope is inadequate for calculation of right ventricular systolic pressure. Normal right atrial pressure. Great Vessels There is mild dilatation of the ascending aorta measuring 3.80 cm. Venous The inferior vena cava is normal in size and collapses greater than 50% with inspiration. Pericardium/Pleural There is no evidence of pericardial effusion. Measurements 2D Linear Measurements IVSd: 0.85 0.6-0.9/0.6-1.0 cm LVIDd: 5.52 3.9-5.3/4.2-5.9 cm LVIDd Index: 2.32 2.4-3.2/2.2-3.1 cm/m2 LVIDs: 4.05 2.0-3.6 cm LVPWd: 1.00 0.7-1.1 cm LA Diam: 3.70 2.7-3.8/3.0-4.0 cm LAIDs Index: 1.55 1.5-2.3 cm/m2 LV Mass: 241.91 67-162/88-224 g LV Mass Index: 101.64 43-95/49-115 g/m2 LVOT Diam: 2.20 3.0+(-)1.3 cm 2D Systolic Function EF 4C: 47.50 >55% EF 2C: 51.80 >55% EF BiP: 51.40 >55% Mitral Valve MV Pk E: 0.45 MV PK A: 0.75 MV Decel Time: 199.00 E/A: 0.60 E'Lateral: 9.82 E'Medial: 8.08 E/E' Med: 5.60 E/E' Lat: 4.60 PHT: 58.00 MVA PHT: 3.79 Decel [place]: 2.26 Aortic Valve AoV Pk David: 1.53 AoV Pk Grad: 9.00 NATHAN: 2.02 LVOT LVOT Pk David: 0.90 LVOT Mn David: 0.62 LVOT VTI: 0.15 LVOT Pk Grad: 3.00 LVOT Mn Grad: 2.00 LVOT Diam: 2.20 LVOT Area: 3.80 Diastolic Function MV Pk E: 0.45 MV Pk A: 0.75 E/A: 0.60 E'Medial: 8.08 E/E' Med: 5.60 E' Laterial: 9.82 E/E' Lat: 4.60 Right Ventricle TAPSE (mm): 17.10 TVS' David: 9.08 Great Vessels Aorta Sinus of Valsalva: 3.10 2.0-3.5 cm Ao Asc: 3.80 2.1-3.4 cm Pulmonary Valve PV Pk David: 1.27 Peak PV Grad: 6.00 Updated in Other Vendor System with Status of Final Cristobal Damon MD electronically signed on 03/04/2024 4:23:10 PM with status of Final
[2024-03-04 07:41] LABS: Glucose, Whole Blood 166 mg/dL (60-115)
[2024-03-04] MEDS: Meclizine HCl 25 MG TABLET PO (08:08)
[2024-03-04] MEDS: Insulin Lispro 100 UNIT/ML 3 ML VIAL SUBCUT ×3 (08:08→16:35)
[2024-03-04] MEDS: Escitalopram Oxalate 20 MG TABLET PO (08:08)
[2024-03-04] MEDS: Montelukast Sodium 10 MG TABLET PO (08:08)
[2024-03-04] MEDS: 0.9 % Sodium Chloride 1,000 ML 125 ML IVCONT ×2 (08:09→16:18)
[2024-03-04] MEDS: 0.9 % Sodium Chloride Flush 3 ML SYRINGE IVFLUSH ×2 (08:10→16:18)
[2024-03-04] MEDS: Fluticasone/Vilanterol 200/25 BLST.W.DEV 1 PUFF INHALE (08:23)
[2024-03-04 08:58] LABS: B Type Natriuretic Peptide 224 pg/mL (<100)
--- NOTE | 2024-03-04 09:58 | P.PNIM_ITS ---
Subjective Subjective Date of Service: 03/04/24 Interval History: Tired Flank pain improved Denies chest pressure or dyspnea Review of Systems Review of Systems: Yes all other systems are reviewed and are negative Physical Exam 2 Vital Signs: Vital Signs: Last Vital Signs Temp 97.0 F 03/04/24 07:40 Pulse 90 03/04/24 08:24 Resp 20 03/04/24 08:24 BP 141/66 H 03/04/24 07:40 Pulse Ox 94 03/04/24 07:40 O2 Del Method Nasal Cannula 03/04/24 07:40 O2 Flow Rate 2 03/04/24 07:40 Oxygen Flow Rate 2 03/03/24 20:13 BMI result Body Mass Index 48.4 Gen: NAD HEENT: sclera anicteric, moist mucus membranes Neck: supple Lungs: clear to auscultation bilaterally Heart: regular, tachycardic, no murmurs Abd: soft, non-tender, non-distended, obese : mild L CVAT, Gonzalez running clear urine Ext: no edema Skin: warm/well-perfused Neuro: alert and oriented x3, no focal findings Psych: appropriate affect Objective Data Active Medications Acetaminophen (Acetaminophen 325 Mg Tablet) 650 mg PO Q6H PRN PRN Reason: Pain, Mild (Pain Scale 1-3) Last Admin: 03/03/24 16:42 Dose: 650 mg Documented By: BEE Albuterol Sulfate (Albuterol Sulfate 90 Mcg 8 Gm Inhaler) 2 puff INHALE RQ4H PRN PRN Reason: Shortness Of Breath Or Wheezing Escitalopram Oxalate (Escitalopram Oxalate 20 Mg Tablet) 20 mg PO DAILY [facility] Last Admin: 03/04/24 08:08 Dose: 20 mg Documented By: KEANU Fluticasone/Vilanterol (Fluticasone/Vilanterol 200/25 Blst.W.Dev) 1 puff INHALE DAILY [facility] Last Admin: 03/04/24 08:23 Dose: 1 puff Documented By: WILLOW Glucose (Glucose Gel 15 Gm Gel..Gram.) 15 gm PO Q15M PRN; Protocol PRN Reason: per Hypoglycemia Standing Ord. Hydromorphone HCl (Hydromorphone Hcl 1 Mg/Ml Syringe) 1 mg IVPUSH Q4H PRN; Protocol PRN Reason: severe pain Last Admin: 03/03/24 08:45 Dose: 1 mg Documented By: MARIBELL Dextrose (D10) 250 mls @ 750 mls/hr IV Q15M PRN; Protocol PRN Reason: per Hypoglycemia Standing Ord. Sodium Chloride (Ns) 1,000 mls @ 125 mls/hr IVCONT .Q8H [facility] Last Admin: 03/04/24 08:09 Dose: 125 mls/hr Documented By: KEANU Ceftriaxone Sodium 2 gm/ (Sodium Chloride) 50 mls @ 100 mls/hr IV Q24H [facility] Last Infusion: 03/03/24 17:35 Dose: Infused Documented By: BEE Insulin Human Lispro (Insulin Lispro 100 Unit/Ml 3 Ml Vial) 0 unit SUBCUT QIDACHS [facility]; Protocol Last Admin: 03/04/24 08:08 Dose: 4 unit Documented By: KEANU Meclizine HCl (Meclizine Hcl 25 Mg Tablet) 25 mg PO DAILY [facility] Last Admin: 03/04/24 08:08 Dose: 25 mg Documented By: KEANU Melatonin (Melatonin 3 Mg Tablet) 6 mg PO BEDTIME PRN PRN Reason: Insomnia Montelukast Sodium (Montelukast Sodium 10 Mg Tablet) 10 mg PO DAILY [facility] Last Admin: 03/04/24 08:08 Dose: 10 mg Documented By: KEANU Non-Formulary Medication (Norethindrone Acetate) 5 mg PO DAILY [facility] Ondansetron HCl (Ondansetron Hcl 4 Mg/2 Ml Vial) 4 mg IVPUSH Q8H PRN PRN Reason: Nausea and Vomiting Sodium Chloride (0.9 % Sodium Chloride Flush 3 Ml Syringe) 3 ml IVFLUSH QSHIFT [facility] Last Admin: 03/04/24 08:10 Dose: 3 ml Documented By: KEANU Labs 03/04/24 06:11 03/04/24 06:11 Labs: Laboratory Results - last 24 hr 03/03/24 03/03/24 03/03/24 10:52 16:05 16:07 MCV MCH MCHC RDW Plt Count MPV Absolute Nucleated RBC Nucleated RBC % (auto) VBG pH VBG pCO2 VBG pO2 VBG HCO3 VBG O2 Saturation VBG Base Excess Anion Gap Estim Creat Clear Calc Estimated GFR POC Glucose 237 H 233 H Random Glucose Lactic Acid Calcium B-Natriuretic Peptide 471 H 03/03/24 03/03/24 03/03/24 16:24 17:13 17:14 MCV 80.2 MCH 25.7 L MCHC 32.1 RDW 14.3 Plt Count 330 MPV 10.1 Absolute Nucleated RBC 0.000 Nucleated RBC % (auto) 0.0 VBG pH VBG pCO2 VBG pO2 VBG HCO3 VBG O2 Saturation VBG Base Excess Anion Gap 13 Estim Creat Clear Calc 44.4 Estimated GFR 25 POC Glucose 231 H Random Glucose 257 H Lactic Acid 0.9 Calcium 9.2 B-Natriuretic Peptide 03/03/24 03/03/24 03/03/24 17:19 20:22 21:49 MCV MCH MCHC RDW Plt Count MPV Absolute Nucleated RBC Nucleated RBC % (auto) VBG pH 7.35 VBG pCO2 45 VBG pO2 95 VBG HCO3 25 VBG O2 Saturation 98.0 VBG Base Excess -0.5 Anion Gap Estim Creat Clear Calc Estimated GFR POC Glucose 215 H 207 H Random Glucose Lactic Acid Calcium B-Natriuretic Peptide 03/04/24 03/04/24 06:11 07:37 MCV 81.3 MCH 25.8 L MCHC 31.7 RDW 14.5 Plt Count 335 MPV 10.3 Absolute Nucleated RBC 0.000 Nucleated RBC % (auto) 0.0 VBG pH VBG pCO2 VBG pO2 VBG HCO3 VBG O2 Saturation VBG Base Excess Anion Gap 16 Estim Creat Clear Calc 43.9 Estimated GFR 25 POC Glucose 166 H Random Glucose 180 H Lactic Acid Calcium 9.4 B-Natriuretic Peptide 224 H Microbiology Microbiology Results: Microbiology 03/02/24 15:56 Blood Culture - Preliminary Blood - Subclavian Prelim: GPC Gram Stain only 03/02/24 16:24 Blood Culture - Preliminary Blood - Subclavian No growth after 24 hours. Assessment and Plan (1) Perinephric hematoma: Status: Acute (2) EDUARDO (acute kidney injury): Status: Acute (3) Pyelonephritis: Status: Acute Plan d3 53yo F with HTN, HLD, DM2, asthma, VSD s/p repair, nephrolithiasis s/p lithotripsy/stenting for staghorn calculus 12/28/23, stent removal/lithotripsy 02/08/24 presenting with hematuria and L flank pain, found to have subcapsular hematoma, persistent renal calculi, and sepsis due to pyleonephritis pyelonephritis - ceftriaxone 03/02-, follow BCx/UCx, continue NS nephrolithiasis subcapsular hematoma - POD#[address] Rodríguez 03/03. Gonzalez out 03/05 am. - IV hydromorphone, PO oxycodone - no heparin EDUARDO/CKD2 - continue IV isotonic saline + hold lisinopril HTN - holding lisinopril as above HLD - statin DM2 with hyperglycemia - A1c 7.4, increased correction-dose lispro R knee pain - likely from arthritis; analgesia as above moderate persistent asthma not in acute exac - continue home inhalers mood disorder - escitalopram morbid obesity - diet/exercise counseling VTE ppx - SCDs dispo - eventually home; PT eval pending In my clinical judgment, the patient requires continued inpatient hospitalization for the following reasons: IV ABX, IV fluids, EDUARDO Total time managing care of this patient today: 45 minutes. Quality Stroke Does the patient have a stroke diagnosis?: No VTE Prior VTE?: No VTE Risk Level:: Medical - moderate - high VTE Device Contraindication: N/A - Device Ordered VTE Drug Contraindication: Treatment Not Indicated
[2024-03-04 11:52] LABS: Glucose, Whole Blood 302 mg/dL (60-115)
--- NOTE | 2024-03-04 13:33 | MHC.CM.PN ---
Pt has not been medically cleared yet for DC, PT eval pending, DCP is home self care.
[2024-03-04 13:54] LABS: Creatinine Urine 73.12 mg/dL
--- NOTE | 2024-03-04 14:13 | HO.POSTANES ---
Post Anesthesia Evaluation Post Anesthesia Evaluation Date of Service: 03/04/24 Vital Signs: Vital Signs Temp Pulse Resp BP Pulse Ox O2 Del Method O2 Flow Rate 03/04/24 13:06 95 125/62 97 03/04/24 11:38 96.9 F 95 20 125/62 97 Nasal Cannula 2 03/04/24 08:24 90 20 03/04/24 07:40 97.0 F 90 20 141/66 H 94 Nasal Cannula 2 03/04/24 03:52 97.1 F 86 16 117/67 100 Nasal Cannula 2 Anesthesia: General LMA Mental Status: Awake Pain Control: Satisfactory Nausea/Vomiting: None Hydration: Adequate Anesthesia-Related Issues: No Anes. Related Issues
[2024-03-04 16:04] LABS: Glucose, Whole Blood 149 mg/dL (60-115)
[2024-03-04] MEDS: HYDROmorphone HCl 1 MG/ML SYRINGE 0.5 MG IVPUSH (16:35)
[2024-03-04] MEDS: cefTRIAXone sodium 2 GM in 0.9 % Sodium Chloride 50 ML IV (16:35)
[2024-03-04] MEDS: ondansetron HCL 4 MG/2 ML VIAL IVPUSH (16:43)
[2024-03-04 20:44] LABS: Glucose, Whole Blood 191 mg/dL (60-115)
[2024-03-04 23:01] LABS: Glucose, Whole Blood 166 mg/dL (60-115)
[2024-03-05] VITALS (12 sets, daily range): BP systolic 147–187; BP diastolic 68–92; PULSE 78–90; RESP 18–22; TEMP 36.3–36.9; O2SAT 92–98
[2024-03-05] MEDS: Insulin Lispro 100 UNIT/ML 3 ML VIAL SUBCUT ×5 (00:02→21:12)
[2024-03-05] MEDS: Melatonin 3 MG TABLET 6 MG PO (00:09)
[2024-03-05] MEDS: 0.9 % Sodium Chloride 1,000 ML 125 ML IVCONT ×4 (00:09→21:14)
[2024-03-05 07:10] LABS: Glucose, Whole Blood 178 mg/dL (60-115)
[2024-03-05 07:20] LABS: Hematocrit 34.4 % (37.0-47.0); Hemoglobin 10.9 g/dl (12.0-16.0); Mean Corpuscular HGB Conc 31.7 g/dl (31.0-35.0); Mean Corpuscular Hemoglobin 25.6 pg (27.0-33.0); Mean Corpuscular Volume 80.8 fL (80.0-98.0); Mean Platelet Volume 10.2 fL (9.4-12.3); Platelet Count 314 X10*3/uL (160-400); Red Blood Count 4.26 X10*6/uL (4.20-5.50); Red Cell Distribution Width 14.3 % (11.0-16.0); White Blood Count 12.5 X10*3/uL (4.8-10.8)
[2024-03-05 07:36] LABS: Blood Urea Nitrogen 31 mg/dL (9-16); Calcium 8.8 mg/dL (8.4-10.2); Estimated Glomerular Filt Rate 42; Glucose Random 175 mg/dL (60-115)
[2024-03-05 07:44] LABS: B Type Natriuretic Peptide 147 pg/mL (<100)
[2024-03-05 07:50] LABS: Anion Gap 14 (12-20); Carbon Dioxide 25 mmol/L (22-29); Chloride 103 mmol/L (96-108); Sodium 139 mmol/L (135-145)
[2024-03-05] MEDS: Fluticasone/Vilanterol 200/25 BLST.W.DEV 1 PUFF INHALE (07:54)
[2024-03-05] MEDS: Escitalopram Oxalate 20 MG TABLET PO (08:25)
[2024-03-05] MEDS: Montelukast Sodium 10 MG TABLET PO (08:25)
[2024-03-05] MEDS: Acetaminophen 325 MG TABLET 650 MG PO (08:25)
[2024-03-05] MEDS: Meclizine HCl 25 MG TABLET PO (08:25)
[2024-03-05 10:56] LABS: Glucose, Whole Blood 222 mg/dL (60-115)
--- NOTE | 2024-03-05 13:40 | P.PNIM_ITS ---
Subjective Subjective Date of Service: 03/05/24 Interval History: Still complaining of left flank pain however improved since admission. Also complaining of extreme fatigue Review of Systems Denies chest pain Denies shortness of breath Denies nausea vomiting diarrhea Denies fever chills Physical Exam 2 Vital Signs: Vital Signs: Last Vital Signs Temp 98.1 F 03/05/24 10:58 Pulse 81 03/05/24 11:24 Resp 20 03/05/24 10:58 BP 157/86 H 03/05/24 11:24 Pulse Ox 96 03/05/24 11:24 O2 Del Method Nasal Cannula 03/05/24 10:58 O2 Flow Rate 97 03/05/24 10:58 Oxygen Flow Rate 2 03/04/24 19:26 BMI result Body Mass Index 48.4 Const: Other: Awake alert no acute distress Resp: Other: Clear to auscultation bilaterally no rales rhonchi or wheezes Cardio: Other: No S4; positive S1-S2; no S3 murmurs rubs or gallops GI: Other: Soft nontender nondistended normoactive bowel sounds Extrem: Other: No edema bilaterally Objective Data Active Medications Acetaminophen (Acetaminophen 325 Mg Tablet) 650 mg PO Q6H PRN PRN Reason: Pain, Mild (Pain Scale 1-3) Last Admin: 03/05/24 08:25 Dose: 650 mg Documented By: BETTY Albuterol Sulfate (Albuterol Sulfate 90 Mcg 8 Gm Inhaler) 2 puff INHALE RQ4H PRN PRN Reason: Shortness Of Breath Or Wheezing Escitalopram Oxalate (Escitalopram Oxalate 20 Mg Tablet) 20 mg PO DAILY [facility] Last Admin: 03/05/24 08:25 Dose: 20 mg Documented By: BETTY Fluticasone/Vilanterol (Fluticasone/Vilanterol 200/25 Blst.W.Dev) 1 puff INHALE DAILY [facility] Last Admin: 03/05/24 07:54 Dose: 1 puff Documented By: DEMAR Glucose (Glucose Gel 15 Gm Gel..Gram.) 15 gm PO Q15M PRN; Protocol PRN Reason: per Hypoglycemia Standing Ord. Hydromorphone HCl (Hydromorphone Hcl 1 Mg/Ml Syringe) 0.5 mg IVPUSH Q4H PRN; Protocol PRN Reason: severe pain Last Admin: 03/04/24 16:35 Dose: 0.5 mg Documented By: PITA Dextrose (D10) 250 mls @ 750 mls/hr IV Q15M PRN; Protocol PRN Reason: per Hypoglycemia Standing Ord. Sodium Chloride (Ns) 1,000 mls @ 125 mls/hr IVCONT .Q8H [facility] Last Admin: 03/05/24 08:26 Dose: 125 mls/hr Documented By: BETTY Ceftriaxone Sodium 2 gm/ (Sodium Chloride) 50 mls @ 100 mls/hr IV Q24H [facility] Last Infusion: 03/04/24 17:05 Dose: Infused Documented By: PITA Insulin Human Lispro (Insulin Lispro 100 Unit/Ml 3 Ml Vial) 0 unit SUBCUT QIDACHS [facility]; Protocol Last Admin: 03/05/24 12:04 Dose: 6 unit Documented By: BETTY Meclizine HCl (Meclizine Hcl 25 Mg Tablet) 25 mg PO DAILY [facility] Last Admin: 03/05/24 08:25 Dose: 25 mg Documented By: BETTY Melatonin (Melatonin 3 Mg Tablet) 6 mg PO BEDTIME PRN PRN Reason: Insomnia Last Admin: 03/05/24 00:09 Dose: 6 mg Documented By: CARLOS ALBERTO Montelukast Sodium (Montelukast Sodium 10 Mg Tablet) 10 mg PO DAILY [facility] Last Admin: 03/05/24 08:25 Dose: 10 mg Documented By: BETTY Non-Formulary Medication (Norethindrone Acetate) 5 mg PO DAILY [facility] Ondansetron HCl (Ondansetron Hcl 4 Mg/2 Ml Vial) 4 mg IVPUSH Q8H PRN PRN Reason: Nausea and Vomiting Last Admin: 03/04/24 16:43 Dose: 4 mg Documented By: PITA Oxycodone HCl (Oxycodone Hcl Immed Release 5 Mg Tablet) 5 mg PO Q4H PRN PRN Reason: pain,moderate Sodium Chloride (0.9 % Sodium Chloride Flush 3 Ml Syringe) 3 ml IVFLUSH QSHIFT [facility] Last Admin: 03/05/24 08:26 Dose: Not Given Documented By: BETTY Non-Admin Reason: IV Running Labs 03/05/24 06:23 03/05/24 06:23 Labs: Laboratory Results - last 24 hr 03/04/24 03/04/24 03/04/24 13:15 15:35 20:37 MCV MCH MCHC RDW Plt Count MPV Absolute Nucleated RBC Nucleated RBC % (auto) Anion Gap Estim Creat Clear Calc Estimated GFR POC Glucose 149 H 191 H Random Glucose Calcium B-Natriuretic Peptide Ur Random Sodium 58.0 Urine Creatinine 73.12 03/04/24 03/05/24 03/05/24 22:57 06:23 07:03 MCV 80.8 MCH 25.6 L MCHC 31.7 RDW 14.3 Plt Count 314 MPV 10.2 Absolute Nucleated RBC 0.000 Nucleated RBC % (auto) 0.0 Anion Gap 14 Estim Creat Clear Calc 70.0 Estimated GFR 42 POC Glucose 166 H 178 H Random Glucose 175 H Calcium 8.8 D B-Natriuretic Peptide 147 H Ur Random Sodium Urine Creatinine 03/05/24 10:46 MCV MCH MCHC RDW Plt Count MPV Absolute Nucleated RBC Nucleated RBC % (auto) Anion Gap Estim Creat Clear Calc Estimated GFR POC Glucose 222 H Random Glucose Calcium B-Natriuretic Peptide Ur Random Sodium Urine Creatinine Microbiology Microbiology Results: Microbiology 03/02/24 15:56 Blood Culture - Final Blood - Subclavian Coag negative Staphylococcus 03/03/24 21:20 Urine Culture - Final Urine Other - Kidney Left No growth. 03/02/24 16:24 Blood Culture - Preliminary Blood - Subclavian No growth after 48 hours. Assessment and Plan (1) Pyelonephritis: Status: Acute (2) Perinephric hematoma: Status: Acute Plan 53yo F with HTN, HLD, DM2, asthma, VSD s/p repair, nephrolithiasis s/p lithotripsy/stenting for staghorn calculus 12/28/23, stent removal/lithotripsy 02/08/24;presenting with hematuria and L flank pain, found to have subcapsular hematoma, persistent renal calculi, and sepsis due to pyleonephritis 1.Pyelonephritis -ceftriaxone (4) -BCx/UCx negative thus far 2.Nephrolithiasis/subcapsular hematoma - POD(2) stenting by Dr Rodríguez 03/03. Gonzalez removed - IV hydromorphone, PO oxycodone - no heparin 3.EDUARDO/CKD2 -responded well to volume -follow renals/divalents 4.HTN -acceptable control on current therapies -add back lisinopril when appropriate 5.DM2 with hyperglycemia -susceptible control on current therapies -lispro correctional scale -adjust as indicated SCDs Full code In my clinical judgment, the patient requires continued inpatient hospitalization for the following reasons: IV ABX, IV fluids, EDUARDO Quality Stroke Does the patient have a stroke diagnosis?: No VTE Prior VTE?: No VTE Risk Level:: Medical - moderate - high VTE Device Contraindication: N/A - Device Ordered VTE Drug Contraindication: Treatment Not Indicated
[2024-03-05] MEDS: 0.9 % Sodium Chloride Flush 3 ML SYRINGE IVFLUSH ×2 (15:32→21:13)
[2024-03-05 16:21] LABS: Glucose, Whole Blood 196 mg/dL (60-115)
[2024-03-05] MEDS: cefTRIAXone sodium 2 GM in 0.9 % Sodium Chloride 50 ML IV (16:34)
--- NOTE | 2024-03-05 18:15 | PC.NURSE ---
patient is alert to self, time, place and situation. Patient education on importance of removing Gonzalez catheter. Per education patient refused to let catheter be removed today. Provider Cris aware.
[2024-03-05 20:34] LABS: Glucose, Whole Blood 218 mg/dL (60-115)
[2024-03-06] VITALS (8 sets, daily range): BP systolic 146–174; BP diastolic 67–88; PULSE 83–90; RESP 17–20; TEMP 36.3–37.1; O2SAT 93–96
[2024-03-06] MEDS: 0.9 % Sodium Chloride 1,000 ML 125 ML IVCONT (05:43)
[2024-03-06 07:03] LABS: MANUAL DIFF FLAG NO
[2024-03-06 07:13] LABS: Basophils Percent Auto 0.4 % (0-2); Eosinophils Absolute Auto 0.2 X10*3/uL (0.0-0.4); Eosinophils Percent Auto 2.1 % (0-4); Hematocrit 32.6 % (37.0-47.0); Hemoglobin 10.7 g/dl (12.0-16.0); Imm Gran Abs Auto 0.11 X10*3/uL (0.00-0.03); Lymphocytes Absolute Auto 1.9 X10*3/uL (1.2-4.9); Lymphocytes Percent Auto 16.9 % (20-40); Mean Corpuscular HGB Conc 32.8 g/dl (31.0-35.0); Mean Corpuscular Hemoglobin 25.8 pg (27.0-33.0); Mean Corpuscular Volume 78.7 fL (80.0-98.0); Mean Platelet Volume 9.9 fL (9.4-12.3); Monocytes Absolute Auto 0.8 X10*3/uL (0.1-1.2); Monocytes Percent Auto 6.7 % (2-11); Neutrophils Absolute Auto 8.3 x10*3/uL (2.0-8.3); Neutrophils Percent Auto 72.9 % (45-73); Platelet Count 360 X10*3/uL (160-400); Red Blood Count 4.14 X10*6/uL (4.20-5.50); White Blood Count 11.4 X10*3/uL (4.8-10.8)
[2024-03-06 07:34] LABS: Glucose, Whole Blood 184 mg/dL (60-115)
[2024-03-06 07:34] LABS: Alanine Aminotransferase 25 U/L (0-31); Albumin Level 2.7 g/dL (3.5-5.0); Alkaline Phosphatase 163 U/L (39-117); Anion Gap 13 (12-20); Aspartate Amino Transferase 26 U/L (5-31); Bilirubin Total 0.5 mg/dL (0.0-1.0); Blood Urea Nitrogen 22 mg/dL (9-16); Calcium 8.6 mg/dL (8.4-10.2); Carbon Dioxide 29 mmol/L (22-29); Chloride 101 mmol/L (96-108); Creatinine Clr Calc Pharmacy 92.4; Estimated Glomerular Filt Rate 58; Glucose Fasting 189 mg/dL (60-99); Sodium 140 mmol/L (135-145); Total Protein 6.4 g/dL (6.5-8.0)
[2024-03-06] MEDS: Escitalopram Oxalate 20 MG TABLET PO (07:48)
[2024-03-06] MEDS: Montelukast Sodium 10 MG TABLET PO (07:48)
[2024-03-06] MEDS: 0.9 % Sodium Chloride Flush 3 ML SYRINGE IVFLUSH ×2 (07:49→17:07)
[2024-03-06] MEDS: Meclizine HCl 25 MG TABLET PO (07:49)
[2024-03-06] MEDS: Insulin Lispro 100 UNIT/ML 3 ML VIAL SUBCUT ×4 (07:49→21:18)
[2024-03-06] MEDS: Fluticasone/Vilanterol 200/25 BLST.W.DEV 1 PUFF INHALE (08:00)
[2024-03-06] MEDS: Potassium Chloride Packet 20 MEQ PACKET 40 MEQ PO (10:31)
[2024-03-06 11:37] LABS: Glucose, Whole Blood 214 mg/dL (60-115)
--- NOTE | 2024-03-06 12:26 | HO.PM.IMPN ---
Subjective Subjective Date of Service: 03/06/24 Interval History: Slowly improving. Remains fatigued Review of Systems Denies chest pain Denies shortness of breath Denies nausea vomiting diarrhea Denies fever chills Physical Exam Vital Signs: Vital Signs: Last Vital Signs Temp 98.7 F 03/06/24 11:21 Pulse 83 03/06/24 11:21 Resp 18 03/06/24 11:21 BP 149/67 H 03/06/24 11:21 Pulse Ox 94 03/06/24 11:21 O2 Del Method Room Air 03/06/24 11:21 O2 Flow Rate 2 03/06/24 07:25 Oxygen Flow Rate 2 03/04/24 19:26 BMI result Body Mass Index 48.4 Const: Other: Awake alert no acute distress Resp: Other: Clear to auscultation bilaterally no rales rhonchi or wheezes Cardio: Other: No S4; positive S1-S2; no S3 murmurs rubs or gallops GI: Other: Soft nontender nondistended normoactive bowel sounds Extrem: Other: No edema bilaterally Objective Data Active Medications Acetaminophen (Acetaminophen 325 Mg Tablet) 650 mg PO Q6H PRN PRN Reason: Pain, Mild (Pain Scale 1-3) Last Admin: 03/05/24 08:25 Dose: 650 mg Documented By: BETTY Albuterol Sulfate (Albuterol Sulfate 90 Mcg 8 Gm Inhaler) 2 puff INHALE RQ4H PRN PRN Reason: Shortness Of Breath Or Wheezing Escitalopram Oxalate (Escitalopram Oxalate 20 Mg Tablet) 20 mg PO DAILY [facility] Last Admin: 03/06/24 07:48 Dose: 20 mg Documented By: BETTY Fluticasone/Vilanterol (Fluticasone/Vilanterol 200/25 Blst.W.Dev) 1 puff INHALE DAILY [facility] Last Admin: 03/06/24 08:00 Dose: 1 puff Documented By: RODRIGO Glucose (Glucose Gel 15 Gm Gel..Gram.) 15 gm PO Q15M PRN; Protocol PRN Reason: per Hypoglycemia Standing Ord. Hydromorphone HCl (Hydromorphone Hcl 1 Mg/Ml Syringe) 0.5 mg IVPUSH Q4H PRN; Protocol PRN Reason: severe pain Last Admin: 03/04/24 16:35 Dose: 0.5 mg Documented By: PITA Dextrose (D10) 250 mls @ 750 mls/hr IV Q15M PRN; Protocol PRN Reason: per Hypoglycemia Standing Ord. Ceftriaxone Sodium 2 gm/ (Sodium Chloride) 50 mls @ 100 mls/hr IV Q24H [facility] Last Infusion: 03/05/24 17:06 Dose: Infused Documented By: BETTY Insulin Human Lispro (Insulin Lispro 100 Unit/Ml 3 Ml Vial) 0 unit SUBCUT QIDACHS [facility]; Protocol Last Admin: 03/06/24 12:22 Dose: 6 unit Documented By: BETTY Meclizine HCl (Meclizine Hcl 25 Mg Tablet) 25 mg PO DAILY [facility] Last Admin: 03/06/24 07:49 Dose: 25 mg Documented By: BETTY Melatonin (Melatonin 3 Mg Tablet) 6 mg PO BEDTIME PRN PRN Reason: Insomnia Last Admin: 03/05/24 00:09 Dose: 6 mg Documented By: CARLOS ALBERTO Montelukast Sodium (Montelukast Sodium 10 Mg Tablet) 10 mg PO DAILY [facility] Last Admin: 03/06/24 07:48 Dose: 10 mg Documented By: BETTY Non-Formulary Medication (Norethindrone Acetate) 5 mg PO DAILY [facility] Ondansetron HCl (Ondansetron Hcl 4 Mg/2 Ml Vial) 4 mg IVPUSH Q8H PRN PRN Reason: Nausea and Vomiting Last Admin: 03/04/24 16:43 Dose: 4 mg Documented By: PITA Oxycodone HCl (Oxycodone Hcl Immed Release 5 Mg Tablet) 5 mg PO Q4H PRN PRN Reason: pain,moderate Potassium Chloride (Potassium Chloride Packet 20 Meq Packet) 40 meq PO BID [facility] Stop: 03/06/24 21:01 Last Admin: 03/06/24 10:31 Dose: 40 meq Documented By: BETTY Sodium Chloride (0.9 % Sodium Chloride Flush 3 Ml Syringe) 3 ml IVFLUSH QSHIFT [facility] Last Admin: 03/06/24 07:49 Dose: 3 ml Documented By: BETTY Labs 03/06/24 06:46 03/06/24 06:46 Labs: Laboratory Results - last 24 hr 03/05/24 03/05/24 03/06/24 16:07 20:29 06:46 MCV 78.7 L MCH 25.8 L MCHC 32.8 RDW 14.0 Plt Count 360 MPV 9.9 Immature Gran % (Auto) 1.0 H Neut % (Auto) 72.9 Lymph % (Auto) 16.9 L [place] % (Auto) 6.7 Eos % (Auto) 2.1 Baso % (Auto) 0.4 Lymph # (Auto) 1.9 [place] # (Auto) 0.8 Eos # (Auto) 0.2 Baso # (Auto) 0.0 Abs Immat Gran (auto) 0.11 H Absolute Neuts (auto) 8.3 Absolute Nucleated RBC 0.000 Nucleated RBC % (auto) 0.0 Anion Gap 13 Estim Creat Clear Calc 92.4 Estimated GFR 58 POC Glucose 196 H 218 H Fasting Glucose 189 H Calcium 8.6 Total Bilirubin 0.5 AST 26 ALT 25 Alkaline Phosphatase 163 H Total Protein 6.4 L Albumin 2.7 L 03/06/24 03/06/24 07:25 11:25 MCV MCH MCHC RDW Plt Count MPV Immature Gran % (Auto) Neut % (Auto) Lymph % (Auto) [place] % (Auto) Eos % (Auto) Baso % (Auto) Lymph # (Auto) [place] # (Auto) Eos # (Auto) Baso # (Auto) Abs Immat Gran (auto) Absolute Neuts (auto) Absolute Nucleated RBC Nucleated RBC % (auto) Anion Gap Estim Creat Clear Calc Estimated GFR POC Glucose 184 H 214 H Fasting Glucose Calcium Total Bilirubin AST ALT Alkaline Phosphatase Total Protein Albumin Microbiology Microbiology Results: Microbiology 03/02/24 15:56 Blood Culture - Final Blood - Subclavian Coag negative Staphylococcus 03/03/24 21:20 Urine Culture - Final Urine Other - Kidney Left No growth. Assessment and Plan (1) Pyelonephritis: Status: Acute Plan 53yo F with HTN, HLD, DM2, asthma, VSD s/p repair, nephrolithiasis s/p lithotripsy/stenting for staghorn calculus 12/28/23, stent removal/lithotripsy 02/08/24;presenting with hematuria and L flank pain, found to have subcapsular hematoma, persistent renal calculi, and sepsis due to pyleonephritis. Slowly improving; still complains of extreme fatigue 1.Pyelonephritis with fatigue. (new) -ceftriaxone (5) -BCx/UCx negative thus far -check 2D echo in a.m. 2.Nephrolithiasis/subcapsular hematoma - POD(2) stenting by Dr Rodríguez 03/03. Gonzalez removed - IV hydromorphone, PO oxycodone - no heparin 3.EDUARDO/CKD2 -responded well to volume -follow renals/divalents 4.HTN -acceptable control on current therapies -add back lisinopril when appropriate 5.DM2 with hyperglycemia -susceptible control on current therapies -lispro correctional scale -adjust as indicated SCDs Full code In my clinical judgment, the patient requires continued inpatient hospitalization for the following reasons: IV ABX, IV fluids, EDUARDO Quality Stroke Does the patient have a stroke diagnosis?: No VTE Prior VTE?: No VTE Risk Level:: Medical - moderate - high VTE Device Contraindication: N/A - Device Ordered VTE Drug Contraindication: Treatment Not Indicated
[2024-03-06 15:53] LABS: Glucose, Whole Blood 174 mg/dL (60-115)
--- NOTE | 2024-03-06 16:41 | PC.NURSE ---
Patient alert and oriented to person place time and event. Patient has fatigue and refusing to get out of bed. Patient refused have toscano catherter removed by nurse at this time.
--- NOTE | 2024-03-06 16:43 | PC.NURSE ---
Report handed off to DANNY Duarte.
[2024-03-06] MEDS: cefTRIAXone sodium 2 GM in 0.9 % Sodium Chloride 50 ML IV (16:50)
[2024-03-06 20:41] LABS: Glucose, Whole Blood 192 mg/dL (60-115)
[2024-03-06] MEDS: Potassium Chloride ER 20 MEQ TAB.ER.PRT 40 MEQ PO (21:18)
[2024-03-07] VITALS (8 sets, daily range): BP systolic 130–174; BP diastolic 64–91; PULSE 76–91; RESP 16–20; TEMP 35.9–37; O2SAT 91–98
[2024-03-07 06:43] LABS: MANUAL DIFF FLAG NO
[2024-03-07 06:53] LABS: Basophils Absolute Auto 0.1 X10*3/uL (0.0-0.2); Basophils Percent Auto 0.4 % (0-2); Eosinophils Absolute Auto 0.3 X10*3/uL (0.0-0.4); Eosinophils Percent Auto 2.4 % (0-4); Hematocrit 35.7 % (37.0-47.0); Hemoglobin 11.7 g/dl (12.0-16.0); Imm Gran Abs Auto 0.23 X10*3/uL (0.00-0.03); Imm Gran Pct Auto 1.8 % (0.0-0.4); Lymphocytes Absolute Auto 2.3 X10*3/uL (1.2-4.9); Lymphocytes Percent Auto 18.1 % (20-40); Mean Corpuscular HGB Conc 32.8 g/dl (31.0-35.0); Mean Corpuscular Hemoglobin 25.4 pg (27.0-33.0); Mean Corpuscular Volume 77.6 fL (80.0-98.0); Mean Platelet Volume 9.8 fL (9.4-12.3); Monocytes Absolute Auto 0.9 X10*3/uL (0.1-1.2); Neutrophils Absolute Auto 8.8 x10*3/uL (2.0-8.3); Neutrophils Percent Auto 70.3 % (45-73); Platelet Count 382 X10*3/uL (160-400); White Blood Count 12.6 X10*3/uL (4.8-10.8)
[2024-03-07 07:22] LABS: Alanine Aminotransferase 26 U/L (0-31); Albumin Level 2.8 g/dL (3.5-5.0); Alkaline Phosphatase 166 U/L (39-117); Anion Gap 15 (12-20); Aspartate Amino Transferase 21 U/L (5-31); Bilirubin Total 0.5 mg/dL (0.0-1.0); Blood Urea Nitrogen 18 mg/dL (9-16); Calcium 8.8 mg/dL (8.4-10.2); Carbon Dioxide 29 mmol/L (22-29); Chloride 98 mmol/L (96-108); Creatinine Clr Calc Pharmacy 94.3; Estimated Glomerular Filt Rate 59; Glucose Fasting 184 mg/dL (60-99); Sodium 139 mmol/L (135-145); Total Protein 6.7 g/dL (6.5-8.0)
[2024-03-07 07:43] LABS: Glucose, Whole Blood 191 mg/dL (60-115)
[2024-03-07] MEDS: Meclizine HCl 25 MG TABLET PO (08:02)
[2024-03-07] MEDS: Fluticasone/Vilanterol 200/25 BLST.W.DEV 1 PUFF INHALE (08:02)
[2024-03-07] MEDS: Insulin Lispro 100 UNIT/ML 3 ML VIAL SUBCUT ×4 (08:02→21:14)
[2024-03-07] MEDS: Escitalopram Oxalate 20 MG TABLET PO (08:02)
[2024-03-07] MEDS: Montelukast Sodium 10 MG TABLET PO (08:02)
[2024-03-07 11:36] LABS: Glucose, Whole Blood 209 mg/dL (60-115)
[2024-03-07] MEDS: Potassium Chloride ER 20 MEQ TAB.ER.PRT PO ×2 (12:36)
--- NOTE | 2024-03-07 15:50 | P.PNIM_ITS ---
Subjective Subjective Date of Service: 03/07/24 Interval History: pyelonephrirtis Review of Systems no fevers generalised weak no sob or chest pain Physical Exam 2 Vital Signs: Vital Signs: Last Vital Signs Temp 96.7 F L 03/07/24 15:25 Pulse 91 03/07/24 15:25 Resp 18 03/07/24 15:25 BP 171/91 H 03/07/24 15:25 Pulse Ox 97 03/07/24 15:25 O2 Del Method Room Air 03/07/24 15:25 O2 Flow Rate 2 03/06/24 07:25 Oxygen Flow Rate 2 03/04/24 19:26 BMI result Body Mass Index 48.4 Appearance: Alert.? Oriented X3.? cvs: rrr, [id number] . res: clear to auscultation ,no rhonchii or wheezing abd: no rebound or guarding ,nt, bs present. ext pulses present , no cyanosis. neuro: axo3 , nonfocal. Objective Data Active Medications Acetaminophen (Acetaminophen 325 Mg Tablet) 650 mg PO Q6H PRN PRN Reason: Pain, Mild (Pain Scale 1-3) Last Admin: 03/05/24 08:25 Dose: 650 mg Documented By: BETTY Albuterol Sulfate (Albuterol Sulfate 90 Mcg 8 Gm Inhaler) 2 puff INHALE RQ4H PRN PRN Reason: Shortness Of Breath Or Wheezing Escitalopram Oxalate (Escitalopram Oxalate 20 Mg Tablet) 20 mg PO DAILY [facility] Last Admin: 03/07/24 08:02 Dose: 20 mg Documented By: EMILY Fluticasone/Vilanterol (Fluticasone/Vilanterol 200/25 Blst.W.Dev) 1 puff INHALE DAILY [facility] Last Admin: 03/07/24 08:02 Dose: 1 puff Documented By: BLASCMane Glucose (Glucose Gel 15 Gm Gel..Gram.) 15 gm PO Q15M PRN; Protocol PRN Reason: per Hypoglycemia Standing Ord. Hydromorphone HCl (Hydromorphone Hcl 1 Mg/Ml Syringe) 0.5 mg IVPUSH Q4H PRN; Protocol PRN Reason: severe pain Last Admin: 03/04/24 16:35 Dose: 0.5 mg Documented By: PITA Dextrose (D10) 250 mls @ 750 mls/hr IV Q15M PRN; Protocol PRN Reason: per Hypoglycemia Standing Ord. Ceftriaxone Sodium 2 gm/ (Sodium Chloride) 50 mls @ 100 mls/hr IV Q24H [facility] Last Infusion: 03/06/24 17:53 Dose: Infused Documented By: OPHELIA Insulin Human Lispro (Insulin Lispro 100 Unit/Ml 3 Ml Vial) 0 unit SUBCUT QIDACHS [facility]; Protocol Last Admin: 03/07/24 12:36 Dose: 6 unit Documented By: EMILY Meclizine HCl (Meclizine Hcl 25 Mg Tablet) 25 mg PO DAILY [facility] Last Admin: 03/07/24 08:02 Dose: 25 mg Documented By: EMILY Melatonin (Melatonin 3 Mg Tablet) 6 mg PO BEDTIME PRN PRN Reason: Insomnia Last Admin: 03/05/24 00:09 Dose: 6 mg Documented By: CARLOS ALBERTO Montelukast Sodium (Montelukast Sodium 10 Mg Tablet) 10 mg PO DAILY [facility] Last Admin: 03/07/24 08:02 Dose: 10 mg Documented By: EMILY Non-Formulary Medication (Norethindrone Acetate) 5 mg PO DAILY [facility] Ondansetron HCl (Ondansetron Hcl 4 Mg/2 Ml Vial) 4 mg IVPUSH Q8H PRN PRN Reason: Nausea and Vomiting Last Admin: 03/04/24 16:43 Dose: 4 mg Documented By: PITA Oxycodone HCl (Oxycodone Hcl Immed Release 5 Mg Tablet) 5 mg PO Q4H PRN PRN Reason: pain,moderate Sodium Chloride (0.9 % Sodium Chloride Flush 3 Ml Syringe) 3 ml IVFLUSH QSHIFT [facility] Last Admin: 03/07/24 08:09 Dose: Not Given Documented By: EMILY Non-Admin Reason: No Access Labs 03/07/24 06:10 03/07/24 06:10 Labs: Laboratory Results - last 24 hr 03/06/24 03/06/24 03/07/24 15:29 20:32 06:10 MCV 77.6 L MCH 25.4 L MCHC 32.8 RDW 14.0 Plt Count 382 MPV 9.8 Immature Gran % (Auto) 1.8 H Neut % (Auto) 70.3 Lymph % (Auto) 18.1 L Barber % (Auto) 7.0 Eos % (Auto) 2.4 Baso % (Auto) 0.4 Lymph # (Auto) 2.3 Barber # (Auto) 0.9 Eos # (Auto) 0.3 Baso # (Auto) 0.1 Abs Immat Gran (auto) 0.23 H Absolute Neuts (auto) 8.8 H Absolute Nucleated RBC 0.000 Nucleated RBC % (auto) 0.0 Anion Gap 15 Estim Creat Clear Calc 94.3 Estimated GFR 59 POC Glucose 174 H 192 H Fasting Glucose 184 H Calcium 8.8 Total Bilirubin 0.5 AST 21 ALT 26 Alkaline Phosphatase 166 H Total Protein 6.7 Albumin 2.8 L 03/07/24 03/07/24 07:20 11:10 MCV MCH MCHC RDW Plt Count MPV Immature Gran % (Auto) Neut % (Auto) Lymph % (Auto) Barber % (Auto) Eos % (Auto) Baso % (Auto) Lymph # (Auto) Barber # (Auto) Eos # (Auto) Baso # (Auto) Abs Immat Gran (auto) Absolute Neuts (auto) Absolute Nucleated RBC Nucleated RBC % (auto) Anion Gap Estim Creat Clear Calc Estimated GFR POC Glucose 191 H 209 H Fasting Glucose Calcium Total Bilirubin AST ALT Alkaline Phosphatase Total Protein Albumin Assessment and Plan (1) Pyelonephritis: Status: Acute Plan 53yo F with HTN, HLD, DM2, asthma, VSD s/p repair, nephrolithiasis s/p lithotripsy/stenting for staghorn calculus 12/28/23, stent removal/lithotripsy 02/08/24;presenting with hematuria and L flank pain, found to have subcapsular hematoma, persistent renal calculi, and sepsis due to pyleonephritis. Slowly improving; still complains of extreme fatigue 1.Pyelonephritis with fatigue. (new) -ceftriaxone (5) -BCx: coagulase neg staph /2. UCx negative thus far 2.Nephrolithiasis/subcapsular hematoma - POD(2) stenting by Dr Rodríguez 03/03. Gonzalez removed - IV hydromorphone, PO oxycodone - no heparin 3.EDUARDO/CKD2 -responded well to volume -follow renals/divalents 4.HTN -acceptable control on current therapies -add back lisinopril when appropriate 5.DM2 with hyperglycemia -susceptible control on current therapies -lispro correctional scale -adjust as indicated SCDs Full code In my clinical judgment, the patient requires continued inpatient hospitalization for Pyelonephritis : IV ABX, IV fluids, EDUARDO Quality Stroke Does the patient have a stroke diagnosis?: No VTE Prior VTE?: No VTE Risk Level:: Medical - moderate - high VTE Device Contraindication: N/A - Device Ordered VTE Drug Contraindication: Treatment Not Indicated
[2024-03-07 15:57] LABS: Glucose, Whole Blood 150 mg/dL (60-115)
[2024-03-07] MEDS: 0.9 % Sodium Chloride Flush 3 ML SYRINGE IVFLUSH ×2 (16:29→21:15)
[2024-03-07] MEDS: cefTRIAXone sodium 2 GM in 0.9 % Sodium Chloride 50 ML IV (16:30)
[2024-03-07 20:07] LABS: Glucose, Whole Blood 196 mg/dL (60-115)
[2024-03-07 23:07] LABS: Glucose, Whole Blood 196 mg/dL (60-115)
[2024-03-08] VITALS (8 sets, daily range): BP systolic 137–168; BP diastolic 69–89; PULSE 77–96; RESP 18–20; TEMP 36.1–37.3; O2SAT 82–95
[2024-03-08 06:31] LABS: MANUAL DIFF FLAG NO
[2024-03-08 06:53] LABS: Basophils Absolute Auto 0.1 X10*3/uL (0.0-0.2); Basophils Percent Auto 0.3 % (0-2); Eosinophils Absolute Auto 0.3 X10*3/uL (0.0-0.4); Hematocrit 35.9 % (37.0-47.0); Hemoglobin 11.6 g/dl (12.0-16.0); Imm Gran Abs Auto 0.23 X10*3/uL (0.00-0.03); Imm Gran Pct Auto 1.6 % (0.0-0.4); Lymphocytes Absolute Auto 2.8 X10*3/uL (1.2-4.9); Lymphocytes Percent Auto 19.2 % (20-40); Mean Corpuscular HGB Conc 32.3 g/dl (31.0-35.0); Mean Corpuscular Hemoglobin 25.3 pg (27.0-33.0); Mean Corpuscular Volume 78.4 fL (80.0-98.0); Mean Platelet Volume 9.6 fL (9.4-12.3); Monocytes Absolute Auto 0.8 X10*3/uL (0.1-1.2); Monocytes Percent Auto 5.7 % (2-11); Neutrophils Absolute Auto 10.2 x10*3/uL (2.0-8.3); Neutrophils Percent Auto 71.2 % (45-73); Platelet Count 423 X10*3/uL (160-400); Red Blood Count 4.58 X10*6/uL (4.20-5.50); Red Cell Distribution Width 14.1 % (11.0-16.0); White Blood Count 14.3 X10*3/uL (4.8-10.8)
[2024-03-08 07:32] LABS: Alanine Aminotransferase 27 U/L (0-31); Albumin Level 2.9 g/dL (3.5-5.0); Alkaline Phosphatase 152 U/L (39-117); Anion Gap 13 (12-20); Aspartate Amino Transferase 19 U/L (5-31); Bilirubin Total 0.4 mg/dL (0.0-1.0); Blood Urea Nitrogen 15 mg/dL (9-16); Carbon Dioxide 29 mmol/L (22-29); Chloride 99 mmol/L (96-108); Creatinine Clr Calc Pharmacy 91.5; Estimated Glomerular Filt Rate 57; Glucose Fasting 185 mg/dL (60-99); Potassium 3.1 mmol/L (3.3-5.1); Sodium 138 mmol/L (135-145); Total Protein 6.8 g/dL (6.5-8.0)
[2024-03-08] MEDS: Fluticasone/Vilanterol 200/25 BLST.W.DEV 1 PUFF INHALE (07:39)
[2024-03-08 08:06] LABS: Glucose, Whole Blood 177 mg/dL (60-115)
[2024-03-08] MEDS: Montelukast Sodium 10 MG TABLET PO (08:39)
[2024-03-08] MEDS: Insulin Lispro 100 UNIT/ML 3 ML VIAL SUBCUT ×4 (08:39→20:15)
[2024-03-08] MEDS: Escitalopram Oxalate 20 MG TABLET PO (08:39)
[2024-03-08] MEDS: Meclizine HCl 25 MG TABLET PO (08:39)
[2024-03-08] MEDS: 0.9 % Sodium Chloride Flush 3 ML SYRINGE IVFLUSH ×3 (08:40→20:15)
[2024-03-08 11:35] LABS: Glucose, Whole Blood 201 mg/dL (60-115)
--- NOTE | 2024-03-08 14:35 | MHC.CM.PN ---
EMR reviewed and per MD rounds, pt is not medically cleared for D/C due to management of pyelonephritis.
--- NOTE | 2024-03-08 15:13 | P.PNIM_ITS ---
Subjective Subjective Date of Service: 03/08/24 Interval History: pyelonephrirtis Review of Systems no fevers ,generalised weak pain improving Physical Exam 2 Vital Signs: Vital Signs: Last Vital Signs Temp 97.4 F 03/08/24 11:15 Pulse 86 03/08/24 11:15 Resp 20 03/08/24 11:15 BP 146/89 H 03/08/24 11:15 Pulse Ox 94 03/08/24 11:15 O2 Del Method Room Air 03/08/24 11:15 O2 Flow Rate 2 03/06/24 07:25 Oxygen Flow Rate 2 03/04/24 19:26 BMI result Body Mass Index 48.4 Appearance: Alert.? Oriented X3.? cvs: rrr, [id number] . res: clear to auscultation ,no rhonchii or wheezing abd: no rebound or guarding ,nt, bs present. ext pulses present , no cyanosis. neuro: axo3 , nonfocal. Objective Data Active Medications Acetaminophen (Acetaminophen 325 Mg Tablet) 650 mg PO Q6H PRN PRN Reason: Pain, Mild (Pain Scale 1-3) Last Admin: 03/05/24 08:25 Dose: 650 mg Documented By: BETTY Albuterol Sulfate (Albuterol Sulfate 90 Mcg 8 Gm Inhaler) 2 puff INHALE RQ4H PRN PRN Reason: Shortness Of Breath Or Wheezing Escitalopram Oxalate (Escitalopram Oxalate 20 Mg Tablet) 20 mg PO DAILY [facility] Last Admin: 03/08/24 08:39 Dose: 20 mg Documented By: CHRISTIANA Fluticasone/Vilanterol (Fluticasone/Vilanterol 200/25 Blst.W.Dev) 1 puff INHALE DAILY [facility] Last Admin: 03/08/24 07:39 Dose: 1 puff Documented By: LUISANA Glucose (Glucose Gel 15 Gm Gel..Gram.) 15 gm PO Q15M PRN; Protocol PRN Reason: per Hypoglycemia Standing Ord. Hydromorphone HCl (Hydromorphone Hcl 1 Mg/Ml Syringe) 0.5 mg IVPUSH Q4H PRN; Protocol PRN Reason: severe pain Last Admin: 03/04/24 16:35 Dose: 0.5 mg Documented By: PITA Dextrose (D10) 250 mls @ 750 mls/hr IV Q15M PRN; Protocol PRN Reason: per Hypoglycemia Standing Ord. Ceftriaxone Sodium 2 gm/ (Sodium Chloride) 50 mls @ 100 mls/hr IV Q24H [facility] Last Infusion: 03/07/24 17:06 Dose: Infused Documented By: EMILY Insulin Human Lispro (Insulin Lispro 100 Unit/Ml 3 Ml Vial) 0 unit SUBCUT QIDACHS [facility]; Protocol Last Admin: 03/08/24 12:13 Dose: 6 unit Documented By: CHRISTIANA Meclizine HCl (Meclizine Hcl 25 Mg Tablet) 25 mg PO DAILY [facility] Last Admin: 03/08/24 08:39 Dose: 25 mg Documented By: CHRISTIANA Melatonin (Melatonin 3 Mg Tablet) 6 mg PO BEDTIME PRN PRN Reason: Insomnia Last Admin: 03/05/24 00:09 Dose: 6 mg Documented By: CARLOS ALBERTO Montelukast Sodium (Montelukast Sodium 10 Mg Tablet) 10 mg PO DAILY [facility] Last Admin: 03/08/24 08:39 Dose: 10 mg Documented By: CHRISTIANA Ondansetron HCl (Ondansetron Hcl 4 Mg/2 Ml Vial) 4 mg IVPUSH Q8H PRN PRN Reason: Nausea and Vomiting Last Admin: 03/04/24 16:43 Dose: 4 mg Documented By: PITA Oxycodone HCl (Oxycodone Hcl Immed Release 5 Mg Tablet) 5 mg PO Q4H PRN PRN Reason: pain,moderate Sodium Chloride (0.9 % Sodium Chloride Flush 3 Ml Syringe) 3 ml IVFLUSH QSHIFT [facility] Last Admin: 03/08/24 08:40 Dose: 3 ml Documented By: CHRISTIANA Labs 03/08/24 06:05 03/08/24 06:05 Labs: Laboratory Results - last 24 hr 03/07/24 03/07/24 03/07/24 15:33 20:04 23:04 MCV MCH MCHC RDW Plt Count MPV Immature Gran % (Auto) Neut % (Auto) Lymph % (Auto) Dyer % (Auto) Eos % (Auto) Baso % (Auto) Lymph # (Auto) Dyer # (Auto) Eos # (Auto) Baso # (Auto) Abs Immat Gran (auto) Absolute Neuts (auto) Absolute Nucleated RBC Nucleated RBC % (auto) Anion Gap Estim Creat Clear Calc Estimated GFR POC Glucose 150 H 196 H 196 H Fasting Glucose Calcium Total Bilirubin AST ALT Alkaline Phosphatase Total Protein Albumin 03/08/24 03/08/24 03/08/24 06:05 07:52 11:17 MCV 78.4 L MCH 25.3 L MCHC 32.3 RDW 14.1 Plt Count 423 H MPV 9.6 Immature Gran % (Auto) 1.6 H Neut % (Auto) 71.2 Lymph % (Auto) 19.2 L Dyer % (Auto) 5.7 Eos % (Auto) 2.0 Baso % (Auto) 0.3 Lymph # (Auto) 2.8 Dyer # (Auto) 0.8 Eos # (Auto) 0.3 Baso # (Auto) 0.1 Abs Immat Gran (auto) 0.23 H Absolute Neuts (auto) 10.2 H Absolute Nucleated RBC 0.000 Nucleated RBC % (auto) 0.0 Anion Gap 13 Estim Creat Clear Calc 91.5 Estimated GFR 57 POC Glucose 177 H 201 H Fasting Glucose 185 H Calcium 9.0 Total Bilirubin 0.4 AST 19 ALT 27 Alkaline Phosphatase 152 H Total Protein 6.8 Albumin 2.9 L Microbiology Microbiology Results: Microbiology 03/02/24 16:24 Blood Culture - Final Blood - Subclavian No growth after 5 days. Assessment and Plan (1) Pyelonephritis: Status: Acute Plan 53yo F with HTN, HLD, DM2, asthma, VSD s/p repair, nephrolithiasis s/p lithotripsy/stenting for staghorn calculus 12/28/23, stent removal/lithotripsy 02/08/24;presenting with hematuria and L flank pain, found to have subcapsular hematoma, persistent renal calculi, and sepsis due to pyleonephritis. Slowly improving; still complains of extreme fatigue 1.Pyelonephritis with fatigue. (new) -ceftriaxone (5) -BCx: coagulase neg staph 1/2. UCx negative thus far 2.Nephrolithiasis/subcapsular hematoma - POD(2) stenting by Dr Rodríguez 03/03. Gonzalez removed - IV hydromorphone, PO oxycodone - no heparin 3.EDUARDO/CKD2 -responded well to volume -follow renals/divalents 4.HTN -acceptable control on current therapies -add back lisinopril when appropriate 5.DM2 with hyperglycemia -susceptible control on current therapies -lispro correctional scale -adjust as indicated SCDs Full code In my clinical judgment, the patient requires continued inpatient hospitalization for Pyelonephritis : IV ABX, IV fluids, EDUARDO Quality Stroke Does the patient have a stroke diagnosis?: No VTE Prior VTE?: No VTE Risk Level:: Medical - moderate - high VTE Device Contraindication: N/A - Device Ordered VTE Drug Contraindication: Treatment Not Indicated
[2024-03-08 16:07] LABS: Glucose, Whole Blood 215 mg/dL (60-115)
[2024-03-08] MEDS: cefTRIAXone sodium 2 GM in 0.9 % Sodium Chloride 50 ML IV (16:37)
[2024-03-08 19:56] LABS: Glucose, Whole Blood 154 mg/dL (60-115)
[2024-03-09] VITALS (7 sets, daily range): BP systolic 142–169; BP diastolic 69–90; PULSE 75–92; RESP 16–20; TEMP 36.2–36.9; O2SAT 93–97
[2024-03-09 07:07] LABS: Glucose, Whole Blood 173 mg/dL (60-115)
--- NOTE | 2024-03-09 07:52 | P.CDIM_ITS ---
PROVIDER RESPONSE TEXT: To clarify, the appropriate diagnosis supported by the clinical indicators: Hypokalemia: hypokalemia QUERY TEXT: PHYSICIAN'S DOCUMENTATION REQUEST Date of Query: 03/09/2024 06:11 AM EDT Patient Name: Gabriela Fernández Admit Date: 03/02/2024 Dear Paul Soto, A review of the medical record indicates additional documentation may be needed. Please review below and update the documentation accordingly. Clinical Indicators: LAB FINDINGS: potassium 3.0 L 3.1 L Based on the above, is there a diagnosis that correlates with these lab findings: Hypokalemia resolved, possible, probable, suspected Labs indicate a diagnosis of (please specify) Other (explain) Clinically unable to determine (explain) Thank you, Carmencita Copeland, CCS, CDIS Use of terms such as suspected, likely, concern for, or probable (associated with a specific diagnosi s that is being evaluated, monitored, or treated as if it exists) are acceptable and can be coded in the inpatient se tting, when documented at the time of discharge. Please use your independent medical judgment in providing your response. THIS QUERY IS PART OF THE PERMANENT MEDICAL RECORD
[2024-03-09] MEDS: Fluticasone/Vilanterol 200/25 BLST.W.DEV 1 PUFF INHALE (07:56)
[2024-03-09] MEDS: Escitalopram Oxalate 20 MG TABLET PO (08:15)
[2024-03-09] MEDS: Insulin Lispro 100 UNIT/ML 3 ML VIAL SUBCUT ×4 (08:15→20:38)
[2024-03-09] MEDS: Montelukast Sodium 10 MG TABLET PO (08:15)
[2024-03-09] MEDS: Meclizine HCl 25 MG TABLET PO (08:15)
[2024-03-09] MEDS: 0.9 % Sodium Chloride Flush 3 ML SYRINGE IVFLUSH ×2 (08:15→20:44)
[2024-03-09 09:16] LABS: Potassium 3.6 mmol/L (3.3-5.1)
[2024-03-09 11:19] LABS: Glucose, Whole Blood 234 mg/dL (60-115)
[2024-03-09 16:34] LABS: Glucose, Whole Blood 210 mg/dL (60-115)
[2024-03-09] MEDS: cefTRIAXone sodium 2 GM in 0.9 % Sodium Chloride 50 ML IV (17:08)
[2024-03-09 20:06] LABS: Glucose, Whole Blood 194 mg/dL (60-115)
[2024-03-10] VITALS: BP 122/58; PULSE 78; RESP 16; TEMP 36.5; O2SAT 95
[2024-03-10 04:00] VITALS: BP 115/78; PULSE 72; RESP 16; TEMP 36.2; O2SAT 95
[2024-03-10 07:35] VITALS: BP 136/73; PULSE 77; RESP 20; TEMP 36.2; O2SAT 98
[2024-03-10 08:04] LABS: Glucose, Whole Blood 161 mg/dL (60-115)
[2024-03-10] MEDS: Fluticasone/Vilanterol 200/25 BLST.W.DEV 1 PUFF INHALE (08:06)
[2024-03-10 08:07] VITALS: PULSE 90; RESP 18; O2SAT 97
[2024-03-10] MEDS: Escitalopram Oxalate 20 MG TABLET PO (08:07)
[2024-03-10] MEDS: Insulin Lispro 100 UNIT/ML 3 ML VIAL SUBCUT (08:07)
[2024-03-10] MEDS: Meclizine HCl 25 MG TABLET PO (08:07)
[2024-03-10] MEDS: Montelukast Sodium 10 MG TABLET PO (08:07)
[2024-03-10] MEDS: 0.9 % Sodium Chloride Flush 3 ML SYRINGE IVFLUSH (08:08)
--- NOTE | 2024-03-10 10:16 | MHC.CM.PN ---
Pt is medically cleared for D/C home self-care, pt has arranged for her own transportation home.
[2024-03-10] MEDS: Tamsulosin HCL 0.4 MG CAPSULE PO (10:22)
[2024-03-10 11:09] VITALS: BP 130/79; PULSE 84; RESP 18; TEMP 36.3; O2SAT 94
--- NOTE | 2024-03-10 12:10 | PM.DS ---
DS: Providers Provider Date of Service: 03/10/24 Date of admission: 03/02/24 19:54 Date of discharge: 03/10/24 Primary care physician: Eva Galarza MD Consults: 03/02/24 19:54 Consult to Urology Routine Consulting Provider: Dangelo Bonilla Reason for consultation: left kidney hematoma ; left renal pelvis calculi Attending physician on discharge: Paul Soto Discharging clinician: Paul Soto DS: Diagnosis Discharge Diagnosis (1) Pyelonephritis: Status: Acute DS: Summary Hospital Course Hospital Course: 53-year-old female with a PMH significant for?HTN, HLD, nephrolithiasis, [id number] type 2 diabetes, mild intermittent asthma, and right ventricular septal defect s/p repair in 1974 who presents to the ED for evaluation of?left kidney pain and hematuria. On 02/08/2024 patient underwent cystoscopy with removal of residual left stone and ureteral stent by Dr. Bonilla. Since procedure patient has been doing well until she developed LLQ and left flank pain beginning on Thursday-Thursday. Pain has been constant and worsening. Yesterday patient noticed hematuria and a foul-smelling odor in her urine. Has also been feeling diaphoretic though never took temperature at home. Has had 1 episode of nausea and vomiting when she attempted to take Aleve for her symptoms. Pain is particularly noticeable with deep inspiration. Patient also complains of right knee pain that has been ongoing since the beginning of January. Denies any known trauma to the area or recent falls. Did present to [facility] on February 14 with negative workup for acute osseous injury. Was told at the time she likely pulled a muscle. Denies chest pain/pressure, palpitations. No diarrhea. In the ED pt was tachycardic up to 117, tachypneic up to 26, febrile up to 100.5, and hypertensive up to 154/80. Labs were significant for leukocytosis of 18.6, H&H 11.9/36.2, sodium 133, BUN 26, creatinine 2.01, random glucose 418, A1c 7.4, and lactic acid 2.1 with repeat 1.0. UA showing trace leukocyte esterase, proteinuria, glucose >1000, and large amount of urine blood. Right knee x-ray showed mild degenerative changes. CT of abd/pelvis showed moderate size subcapsular hematoma around left kidney with small blood in the perinephric space, large calculi in the left renal pelvis with left-sided pelvocaliectasis and multiple left-sided intrarenal nonobstructing calculi. Pt was treated with IVF, ceftriaxone, and hydromorphone. Pt will be admitted to the hospital for treatment and further evaluation of subcapsular hematoma, hematuria, and sepsis in the setting of likely source. Hospital course: 53yo F with HTN, HLD, DM2, asthma, VSD s/p repair, nephrolithiasis s/p lithotripsy/stenting for staghorn calculus 12/28/23, stent removal/lithotripsy 02/08/24;presenting with hematuria and L flank pain, found to have subcapsular hematoma, persistent renal calculi, and sepsis due to pyleonephritis,eduardo Patient admitted for pyelonephritis-started on IV ceftriaxone, blood cultures sent and urine culture also sent, CT of abd/pelvis with moderate sized sub capsular hematoma around left kidney with some blood in the perinephric space, and large calculi and left renal pelvis(please see detailed report in the imaging section): Patient was seen by Urology-status post your ureteral stent on03/03/24. Patient seems to be improved with above supportive care, received IV ceftriaxone for 8 days, currently asymptomatic, H&H stable around 11.6/35.9 range, mild leukocytosis probably related to hematoma. Blood culture 1/2 coagulase-negative Staph possibly contaminant, urine culture no growth, echo-ejection fraction is between 50-55%. Patient also had question of urinary retention? - Patient Gonzalez was removed and given Flomax-patient is urinating well . EDUARDO seems to be resolved. Hypokalemia repleted and resolved. plan: Monitor CBC outpatient as well as BMP considering hematoma and EDUARDO recent. Please complete the course of Ceftin 500 mg p.o. b.i.d. for 1 week Added Flomax, off Gonzalez, urinating well. Follow-up with Urology. Above management discussed with the patient detail length she understand and in agreement with the plan, time spent 40 minute. Time Attestation Total time managing care of this patient today: 40 mintues. Discharge Coordination Time (in mins): 40 minute Quality: Safe Use of Opioids Does Pt have an Active Cancer Diagnosis on the Problem List?: No Quality: Stroke Does the patient have a stroke diagnosis?: No Physical Exam Vital Signs: Vital Signs: Last Vital Signs Temp 97.4 F 03/10/24 11:09 Pulse 84 03/10/24 11:09 Resp 18 03/10/24 11:09 BP 130/79 03/10/24 11:09 Pulse Ox 94 03/10/24 11:09 O2 Del Method Room Air 03/10/24 11:09 O2 Flow Rate 2 03/06/24 07:25 Oxygen Flow Rate 2 03/04/24 19:26 BMI result Body Mass Index 48.4 DS: Data Data Completed and Pending Labs on day of discharge: Laboratory Results - last 24 hr 03/09/24 03/09/24 03/10/24 15:50 20:03 07:40 POC Glucose 210 H 194 H 161 H Imaging Chest x-ray: Radiologist's impression: ITS Impressions Knee X-Ray 03/02/24 15:27 IMPRESSION: Mild degenerative changes. Abdomen/Pelvis CT 03/02/24 17:45 IMPRESSION: 1. Moderate-sized subcapsular hematoma around the left kidney with some blood in the perinephric space. 2. Large calculi in the left renal pelvis with left-sided pelvocaliectasis and multiple left-sided intrarenal nonobstructing calculi. 3. Other incidental findings as described above. Fleischner guidelines were followed. This critical result was discussed with Dr. Woodruff at 7:39 PM on the day of the exam and it was ascertained that the content and urgency of the report was understood at the time of direct communication. Chest X-Ray 03/03/24 16:45 IMPRESSION: No acute pneumonia or edema. Previous cardiac surgery Guidance Fluoroscopy 03/03/24 21:06 FINDINGS AND IMPRESSION: The purpose of this report is to document use of fluoroscopic imaging equipment during the urologic procedures. Cystoscope inserted, iodinated contrast injected into the ureter and into the mildly hydronephrotic kidney, and images obtained at time of a left ureteral stent deployment. The urinary tract stones are better depicted on the recent CT imaging exam. Discharge Plan Discharge Anticipated Discharge Date/Time: 03/10/24 08:31 Patient Disposition: Home, Self-Care Discharge Diagnosis: Pyelonephritis ,Nephrolithiasis/subcapsular hematoma Referrals: Justo Rodríguez MD [Physician] - 1 Week Eva Galarza MD [Primary Care Provider] - 1 Week Discharge Medications: New cefuroxime axetil 500 mg tablet 500 mg PO BID Qty: 14 0RF tamsulosin 0.4 mg Capsule 0.4 mg PO DAILY Qty: 30 0RF Continued Mounjaro 7.5 mg/0.5 mL pen injector 7.5 mg subcut QWEEK budesonide-formoterol [Symbicort] 160-4.5 mcg/actuation HFA aerosol inhaler 2 puff inhalation BID albuterol sulfate [Ventolin HFA] 90 mcg/actuation HFA aerosol inhaler 2 puff inhalation Q4-6H PRN (Reason: Shortness Of Breath Or Wheezing) metformin 1,000 mg tablet 1,000 mg PO BID meclizine 25 mg tablet 25 mg PO DAILY montelukast 10 mg tablet 10 mg PO DAILY citalopram 40 mg tablet 40 mg PO DAILY norethindrone acetate 5 mg tablet 5 mg PO DAILY simvastatin 40 mg tablet 40 mg PO BEDTIME lisinopril 20 mg tablet 20 mg PO DAILY Discharge Orders: Discharge Order (Routine); Ordered 03/10/24 Ordered By: Paul Soto Diet: Advance to usual diet Activity on Discharge: As tolerated Stand Alone Forms: Patient Portal Discharge page, Work/School Release Print Language: Jamaican Other Ambulatory Orders: Complete Blood Count no Diff (Routine) Timeframe: 1 Week Facility: [facility] - Location: Laboratory Ordered By: Paul Soto Care Plan Goals: Please complete the course of Ceftin 500 mg p.o. b.i.d. for 1 week Added Flomax, off Gonzalez, urinating well. Follow-up with Urology Health Concerns: As above. Plan of Treatment: As above. Assessment: As above. Discharge Date/Time: 03/10/24 13:00
[2024-03-10 12:14] LABS: Glucose, Whole Blood 220 mg/dL (60-115)
== END 2024-03-10 13:00 | disposition home or self-care (01) | DRG 720 ==
LOC: HO.ED 19:59 → HO.EDOVER 20:08 → HO.S3 03-03 00:19 → HO.IMC 03-03 17:49
PROVIDERS: Family Medicine; Hospitalist; Physician Assistant Medical; Urology; Admitting Provider Student in an Organized Health Care Education/Training Program; Emergency Provider Emergency Medicine; PCP Internal Medicine; Visit Provider Internal Medicine
PROC: 0T778DZ Dilation of Left Ureter with Intraluminal Device, Via Natural or Artificial Opening Endoscopic (ICD-10-PCS; principal; 2024-03-03 20:00)
DX: A41.9 Sepsis, unspecified organism (principal); N17.9 Acute kidney failure, unspecified; E11.22 Type 2 diabetes mellitus with diabetic chronic kidney disease; E11.65 Type 2 diabetes mellitus with hyperglycemia; Z68.42 Body mass index [BMI] 45.0-49.9, adult; N20.0 Calculus of kidney; N28.89 Other specified disorders of kidney and ureter; R31.9 Hematuria, unspecified; N10 Acute pyelonephritis; E87.6 Hypokalemia; E66.01 Morbid (severe) obesity due to excess calories; I12.9 Hypertensive chronic kidney disease with stage 1 through stage 4 chronic kidney disease, or unspecified chronic kidney disease; M17.11 Unilateral primary osteoarthritis, right knee; Z71.3 Dietary counseling and surveillance; N18.2 Chronic kidney disease, stage 2 (mild); E78.5 Hyperlipidemia, unspecified; J45.20 Mild intermittent asthma, uncomplicated; Z87.74 Personal history of (corrected) congenital malformations of heart and circulatory system; Z79.84 Long term (current) use of oral hypoglycemic drugs; Z79.899 Other long term (current) drug therapy
CPT/HCPCS: 36415; 71045; 73560; 74176; 80048; 80053; 81001; 82010; 82570; 82803; 82947; 83036; 83605; 83690; 83735; 83880; 84132; 84300; 85025; 85027; 87040; 87086; 87147; 87205; 93306; 94640; 97162; 99285; C1758; C1769; C2617; J0696; J1170; J1580; J1940; J2270; J2405; J2704; J3010; Q9957; Q9967

== ENCOUNTER 2024-03-02 19:54 | Outpatient (BNV) | payer OTHER, SELFPAY | END 2024-03-04 07:00 | PROVIDERS: Admitting Provider Student in an Organized Health Care Education/Training Program; Emergency Provider Emergency Medicine; PCP Internal Medicine; Visit Provider Internal Medicine Cardiovascular Disease | DX: I44.7 Left bundle-branch block, unspecified (principal); I71.21 Aneurysm of the ascending aorta, without rupture | CPT/HCPCS: 93306 ==

== ENCOUNTER → 2024-03-02 19:54 | Outpatient (BNV) | payer OTHER, SELFPAY | PROVIDERS: Admitting Provider Student in an Organized Health Care Education/Training Program; Emergency Provider Emergency Medicine; PCP Internal Medicine; Visit Provider Student in an Organized Health Care Education/Training Program | DX: N12 Tubulo-interstitial nephritis, not specified as acute or chronic (principal) | CPT/HCPCS: 99223; 99232; 99239 ==

== ENCOUNTER → 2024-03-02 19:54 | Outpatient (BNV) | payer OTHER, SELFPAY | PROVIDERS: Admitting Provider Student in an Organized Health Care Education/Training Program; Emergency Provider Emergency Medicine; PCP Internal Medicine; Visit Provider Urology | DX: N12 Tubulo-interstitial nephritis, not specified as acute or chronic (principal); N17.9 Acute kidney failure, unspecified; N13.9 Obstructive and reflux uropathy, unspecified; N20.0 Calculus of kidney | CPT/HCPCS: 52332; 74420; 99223 ==

== ENCOUNTER 2024-03-23 10:42 | Outpatient (AMB) | payer OTHER, SELFPAY ==
--- NOTE | 2024-03-23 10:43 | A.OFFVIS_ITS ---
Intake Visit Reasons: post op/US/hematoma after procedure Intake Note: Patient is Present for Telephone Follow Up Post Op Urology Med: Tamsulosin Antibiotic Allergy: Sulfa Antibiotics-Trimethroprim Blood Thinner: None Allergies sulfamethoxazole [From Bactrim] Allergy (Mild, Verified 03/23/24 10:49) Hives trimethoprim [From Bactrim] Allergy (Unknown, Verified 03/23/24 10:49) Anaphylaxis FISH Allergy (Unknown, Uncoded 03/23/24 10:49) Anaphylaxis Medication List - Last Reconciled 03/23/24 by Dangelo Bonilla MD albuterol sulfate 90 mcg/actuation (Ventolin HFA) 2 puffs inhalation Q4-6H PRN allopurinol 100 mg PO DAILY 90 days budesonide-formoterol 160-4.5 mcg/actuation (Symbicort) 2 puffs inhalation BID cefuroxime axetil 500 mg PO BID citalopram 40 mg PO DAILY lisinopril 20 mg PO DAILY meclizine 25 mg PO DAILY metformin 1,000 mg PO BID montelukast 10 mg PO DAILY norethindrone acetate 5 mg PO DAILY potassium citrate ER 20 mEq (2 x 10 mEq (1,080 mg)) PO BID 90 days simvastatin 40 mg PO BEDTIME tamsulosin 0.4 mg PO DAILY tirzepatide (Mounjaro) 7.5 mg subcut QWEEK HPI Comments Details: Gabriela is a pleasant female. She is a patient of Dr. Galarza. She is seen for the following urologic conditions - complex nephrolithiasis Telemedicine Evaluation 15 min Consultation [employer] [facility] [facility] Post procedure for kidney stone had stone stress in and required stent and pyelonephritis We do have results of stone analysis showing uric acid stone and calcium oxalate monohydrate Start allopurinol with potassium citrate Will give 4 weeks to try to maximize stone dissolution Ultrasound with follow-up Nephrolithiasis Longstanding Multiple procedures with Dr Brown Seen in [facility] 08/13/23 with pyelonephritis. Treated with antibiotics Imaging 08/15 - large staghorn type calculus in the left renal pelvis with some mild inflammatory changes around the renal pelvis and mild fullness of the intrarenal collecting system. Other incidental findings as described above including benign hepatic cyst, mild splenomegaly and Bosniak class II exophytic left lower pole renal cyst Discussion regarding procedure. Typically this would be approached with percutaneous nephrolithotomy. Given her body habitus and other medical comorbidities would recommend ureteroscopy and this may require more than 1 potential procedure PFSH Medical History Asthma Benign paroxysmal positional vertigo Obesity Cataract CKD (chronic kidney disease) Depression HLD (hyperlipidemia) Diabetes HTN (hypertension) Sleep apnea History of kidney stones History of in vitro fertilization Surgical History H/O breast biopsy History of ureteroscopy Hx of ectopic History of open heart surgery Family History Father Cancer Mother Epilepsia Dementia Brother Drug abuse Bipolar 1 disorder Son No problems noted. Social History Household Members: Spouse and Children Housing: House Do you presently have visiting nurse or other home services: No Alcohol intake: never Patient Tobacco Use Status: Never used Tobacco service: No Review of Systems Const All systems reviewed & are unremarkable except as noted in HPI and below Reports no additional complaints Resp Reports no additional complaints GI Reports no additional complaints Reports as per HPI Musc Reports no additional complaints Physical Exam Telemedicine evaluation Appropriate responses Regular breathing rate and rhythm HEENT Head: Yes normal to inspection Ears: hearing grossly normal bilaterally Eyes General: appearance normal, both eyes and all related structures Neck Neck: Yes normal visual inspection Chest Chest palpation & inspection: normal inspection of the chest Resp Effort & Inspection: normal respiratory effort and able to speak in complete sentences Telehealth Telehealth Telehealth Platform: [facility] Location of provider rendering services: practice address Location of patient: address on file Patient Identification confirmed using: Name, : Yes Telehealth method: video Patient verbally consented to treatment: Yes Patient verbally consented to billing insurance company: Yes Patient informed of any privacy concerns related to visit: Yes Minutes spent on Phone/Video with Pt.: 15 Assessment & Plan Assessment & Plan (1) Uric acid kidney stone: Code(s): N20.0 - Calculus of kidney Category: Medical (2) Staghorn calculus: Code(s): N20.0 - Calculus of kidney Category: Medical (3) Pyelonephritis: Code(s): N12 - Tubulo-interstitial nephritis, not specified as acute or chronic Category: Medical Plan Start potassium citrate Follow-up renal ultrasound Orders: Orders US renal BI 4 Weeks N20.0 - Calculus of kidney Medications: New potassium citrate ER 20 mEq (2 x 10 mEq (1,080 mg)) PO BID 360 tabs 1RF 90 days N20.0 - Calculus of kidney allopurinol 100 mg PO DAILY 90 tabs 1RF 90 days N20.0 - Calculus of kidney Patient Instructions: Imaging studies, laboratory and physical exam results were discussed and reviewed in detail. No major barriers to patient understanding were identified. An opportunity to ask questions regarding the treatment plan was provided. All questions were answered. The patient expressed understanding and agreement with the above treatment plan. The patient is aware they should contact our office by phone for worsening of their current condition or the appearance of new urologic symptoms. Compliance is encouraged with any medications and followup testing that is ordered. It is a privilege to participate in the urologic care of your patient. If you have any questions or concerns regarding treatment for the above conditions, or other urologic issues, please do not hesitate to contact me. The office telephone contact is [phone]. This note is constructed using voice recognition software. While every effort has been made to ensure accuracy ekg/ecg technician errors may have been included. Yours sincerely, Dr Dangelo Bonilla MD, [facility] - Urology Providers of Expert, Compassionate Care for the Genitourinary System Coding Level of Care Code Tele Est Pt Level 4 (37374) Diagnoses Uric acid kidney stone N20.0 Staghorn calculus N20.0 Pyelonephritis N12
== END 2024-03-23 12:10 | disposition home or self-care (01) ==
LOC: HO.HUSH 10:42
PROVIDERS: PCP Internal Medicine; Visit Provider Urology
DX: N20.0 Calculus of kidney (principal); N12 Tubulo-interstitial nephritis, not specified as acute or chronic
CPT/HCPCS: 99214

== ENCOUNTER → 2024-03-23 10:42 | Outpatient (BNVA) | payer OTHER, SELFPAY | PROVIDERS: PCP Internal Medicine; Visit Provider Urology ==

== ENCOUNTER 2024-04-06 14:55 | Inpatient (IN) | payer OTHER, SELFPAY ==
--- NOTE | ~2024-04-06 | CT_ITS ---
EXAMINATION: CT ABDOMEN AND PELVIS WITHOUT CONTRAST CLINICAL INFORMATION: Left flank pain. History of left subcapsular hematoma. COMPARISON: 03/02/2020 TECHNIQUE: Multidetector volumetric imaging was performed from the superior aspect of the liver through the pubic symphysis. Sagittal and coronal reformatted images were obtained on the technologist's workstation. This CT examination was performed using dose optimization techniques as appropriate, variously including the following: *Automated exposure control *Adjustment of mA and/or kV according to patient size (this includes techniques or standardized protocols for targeted exams where dose is matched to indication/reason for exam; i.e. extremities or head) *Use of iterative reconstruction technique DLP: 1237 mGy-cm FINDINGS: LUNG BASES: The visualized lung bases are unremarkable. LIVER, GALLBLADDER, AND BILIARY TREE: The liver is normal in size, shape, and attenuation. No focal hepatic lesion or biliary ductal dilatation is present. The gallbladder is unremarkable with no evidence of radiopaque gallstones, gallbladder wall thickening, or obvious pericholecystic inflammatory changes. PANCREAS: Unremarkable. SPLEEN: Unremarkable. ADRENAL GLANDS: Unremarkable. KIDNEYS AND URETERS: The right kidney is normal in size and attenuation. There is a small cyst upper pole right kidney measuring 2 cm similar to previous. There is a large apparently subcapsular hemorrhage significantly increased in size measuring up to 9 cm currently and appearing to decompress the left renal parenchyma. There are apparent left renal calcification/renal vascular calcifications similar to previous. A left-sided stent is noted in place with proximal stent in the region of the left renal hilum and distal stent extending into the urinary bladder. There is no hydronephrosis. BLADDER: Unremarkable. GASTROINTESTINAL TRACT: The small and large bowel are unremarkable. The appendix is unremarkable. ABDOMINAL WALL: No significant hernia is appreciated. LYMPH NODES: Normal. VASCULAR: Unremarkable. PELVIC VISCERA: Unremarkable. OSSEOUS STRUCTURES: There is mild diffuse thoracolumbar disc degenerative change. CT/CT abdomen pelvis wo IV con IMPRESSION: 1. Significant increase in size in the left subcapsular hemorrhage now with compression of the left renal parenchyma. 2. Left-sided stent in place. No hydronephrosis. 3. Stable right renal cyst. Fleischner guidelines were followed.
--- NOTE | ~2024-04-06 | CT_ITS ---
EXAMINATION: CT ANGIOGRAPHY ABDOMEN WITH CONTRAST CLINICAL INFORMATION: Kidney hematoma, r o ongoing bleeding, source ? COMPARISON: CT abdomen/pelvis 04/07/2024 TECHNIQUE: Initial noncontrast localizing forensic engineer images were obtained. A timing bolus at the level of the celiac artery was calculated. Subsequently, arterial phase multidetector volumetric imaging was performed through the abdomen following the administration of 100 mL Omnipaque 350 intravenous contrast. No contrast reaction reported. Sagittal and coronal reformatted images were obtained on the technologist workstation. After extensive post-processing on a dedicated 3-D workstation, 3-D reformatted images were uploaded to PACS and reviewed as well. This CT examination was performed using dose optimization techniques as appropriate, variously including the following: *Automated exposure control *Adjustment of mA and/or kV according to patient size (this includes techniques or standardized protocols for targeted exams where dose is matched to indication/reason for exam; i.e. extremities or head) *Use of iterative reconstruction technique DLP: 632 mGy-cm FINDINGS: VASCULAR FINDINGS: Aorta: No aneurysm or dissection of the abdominal aorta. No penetrating atheromatous ulcer. Mesenteric Arteries: Celiac artery is patent. Superior mesenteric artery patent. Inferior mesenteric artery patent. Renal arteries: Single renal arteries bilaterally. Renal arteries are patent and without stenosis or other vascular anomaly. Iliac arteries: The common iliac arteries are patent. NONVASCULAR: Lung Bases: The visualized lung bases are clear. Liver: Homogeneous in attenuation. Normal in size. Gallbladder: Noninflamed. Biliary System: No intrahepatic or extrahepatic biliary dilation. Pancreas: Homogeneous in attenuation. Pancreatic tail collection. Spleen: Normal in size. Genitourinary: Large left subcapsular hematoma measuring 12.8 x 9.8 x 14.6 cm resulting in extrinsic compression of the renal parenchyma. No focal pseudoaneurysm or active extravasation is identified in the region of the hematoma. Partially evaluated left renal collecting system stent. No renal calculi. No hydroureteronephrosis. Adrenal Glands: Unremarkable. Gastrointestinal: The visualized alimentary tract is normal in course. No evidence of obstruction. Peritoneum: No pneumoperitoneum. Pancreatic tail intraperitoneal fluid collection measuring 8 x 4.4 x 3.4 cm, likely a hematoma. Lymph Nodes: No pathologically enlarged abdominal or pelvic lymph nodes. Soft Tissues/Musculoskeletal: There is no acute fracture or significant focal osseous lesion. CT/CT angio abdomen IMPRESSION: 1. Large left subcapsular renal hematoma measuring 12.8 x 9.8 x 14.6 cm without active extravasation or pseudoaneurysm. 2. Intraperitoneal fluid collection near the pancreatic tail measuring 8 x 4.4 x 3.4 cm. When compared to prior noncontrast CT study performed 04/07/2024, the size of this is unchanged. Fleischner guidelines were followed.
[2024-04-06 15:58] VITALS: BP 149/83; PULSE 107; RESP 18; TEMP 37.6; O2SAT 95; BMI 48.7
--- NOTE | 2024-04-06 16:03 | ED_ITS ---
HPI - General Adult General Chief complaint: Nausea/Vomiting/Diarrhea Stated complaint: Abd pain, vomiting Time Seen by Provider: 04/07/24 00:36 Source: patient Mode of arrival: ambulatory Limitations: no limitations History of Present Illness HPI narrative: Patient comes to the emergency room complaining of 4 days of nausea, vomiting, left-sided flank pain. Patient states that she is known to have staghorn calculi, and was recently diagnosed with subcapsular hematoma on the left kidney. Also, about a month ago, patient was diagnosed with pyelonephritis and was admitted to the hospital. Patient has history of lithotripsy, and stent placement. Patient complaining of subjective fever. Patient denies diarrhea. Patient states that after she was discharged from the hospital in February, initially she started feeling better, but now she is feeling sick again with the same symptoms as when she was diagnosed with pyelonephritis Related Data Home Medications ?Medication ?Instructions ?Recorded ?Confirmed albuterol sulfate 90 mcg/actuation 2 puff inhalation Q4-6H PRN 09/17/23 03/23/24 aerosol inhaler (Ventolin HFA) Shortness Of Breath Or Wheezing budesonide-formoterol HFA 160 2 puff inhalation BID 09/17/23 03/23/24 mcg-4.5 mcg/actuation aerosol inhaler (Symbicort) citalopram 40 mg tablet 40 mg PO DAILY 09/17/23 03/23/24 lisinopril 20 mg tablet 20 mg PO DAILY 09/17/23 03/23/24 meclizine 25 mg tablet 25 mg PO DAILY Vertigo 09/17/23 03/23/24 metformin 1,000 mg tablet 1,000 mg PO BID 09/17/23 03/23/24 montelukast 10 mg tablet 10 mg PO DAILY 09/17/23 03/23/24 norethindrone acetate 5 mg tablet 5 mg PO DAILY 09/17/23 03/23/24 simvastatin 40 mg tablet 40 mg PO BEDTIME 09/17/23 03/23/24 tirzepatide 7.5 mg/0.5 mL 7.5 mg subcut QWEEK 03/02/24 03/23/24 subcutaneous pen injector (Edison) Previous Rx's ?Medication ?Instructions ?Recorded cefuroxime axetil 500 mg tablet 500 mg PO BID #14 tabs 03/10/24 tamsulosin 0.4 mg capsule 0.4 mg PO DAILY #30 caps 03/10/24 allopurinol 100 mg tablet 100 mg PO DAILY 90 days #90 tabs 03/23/24 potassium citrate 10 mEq (1,080 20 meq (2 x 10 mEq (1,080 mg)) PO 03/23/24 mg) tablet,extended release BID 90 days #360 tabs Allergies Allergy/AdvReac Type Severity Reaction Status Date / Time sulfamethoxazole Allergy Mild Hives Verified 04/06/24 16:00 [From Bactrim] trimethoprim [From Bactrim] Allergy Unknown Anaphylaxis Verified 04/06/24 16:00 FISH Allergy Unknown Anaphylaxis Uncoded 04/06/24 16:00 Review of Systems 2 Review of Systems: Constitutional : No Weight loss, No Fever, No Chills, No Night Sweats, No Fatigue, No Malaise ENT/Mouth : No Hearing loss, No Ear Pain, No Nasal Congestion, No Sinus Pain, No Hoarseness, No sore throat, No Rhinorrhea, No Swallowing Difficulty Eyes: No Eye Pain, No Swelling, No Redness, No Foreign Body, No Discharge, No Vision Changes Cardiovascular : No Chest Pain, No SOB, No Dyspnea on Exertion, No Orthopnea, No Edema, No Palpitations Respiratory : No Cough, No Sputum, No Wheezing, No Smoke Exposure, No Dyspnea Gastrointestinal : No Nausea, No Vomiting, No Diarrhea, No Constipation, No abdominal Pain, No Hematochezia, No Melena Genitourinary : Hematuria or dysuria, patient complaining of left-sided flank pain Musculoskeletal : No joint pain, No Myalgias, No Joint Swelling Skin : No Skin Lesions, No rash Neuro : No Weakness, No Numbness, No Paresthesias, No Loss of Consciousness, No Dizziness, No Headache Psych : No Anxiety/Panic, No Depression, No SI/HI/AH/VH, No Social Issues, Heme/Lymph: No Bruising, No Bleeding,No Lymphadenopathy Endocrine : No Polyuria, No Polydipsia, No Temperature Intolerance [facility] Past Medical History Medical History Asthma Benign paroxysmal positional vertigo Obesity Cataract CKD (chronic kidney disease) Depression HLD (hyperlipidemia) Diabetes HTN (hypertension) Sleep apnea History of kidney stones History of in vitro fertilization Surgical History H/O breast biopsy History of ureteroscopy Hx of ectopic History of open heart surgery Family History Family History Father Cancer Mother Epilepsia Dementia Brother Drug abuse Bipolar 1 disorder Son No problems noted. Social History Social History Household Members: Spouse and Children Housing: House Do you presently have visiting nurse or other home services: No Alcohol intake: never Patient Tobacco Use Status: Never used Tobacco Smoked in Last 30 Days: No Use of substances other than those prescribed or required for medical reasons: No Advance Directives: No Advance Directives Information Provided: No service: No Physical Exam ED Vital Signs: Vital Signs - 24 hr 04/06/24 15:58 04/06/24 21:11 04/07/24 00:23 Temperature 99.7 F 98.3 F 99.0 F Pulse Rate 107 H 101 H 97 Respiratory Rate 18 16 20 Blood Pressure 149/83 H 147/83 H 132/77 Pulse Oximetry 95 97 95 Oxygen Delivery Method Room Air Room Air Room Air BMI result Body Mass Index 48.7 Const Other: Appearance: Alert. Oriented X3. Seems uncomfortable Eyes: Pupils equal, round and reactive to light. ENT: Pharynx normal. Neck: Normal inspection. Neck supple. No lymph nodes noted. No crepitus CVS: Normal heart rate and rhythm. Pulses normal. Normal S1 and S2 Respiratory: No respiratory distress. Breath sounds normal. No Wheezing. No rales Abdomen: Soft, tenderness to palpation in left lower quadrant, moderate discomfort on the left flank. No back pain Skin: Skin warm and dry. Normal skin color. Normal skin turgor. Extremities: No lower extremity edema. No Lacerations. No Rash Neuro: Oriented X 3. No motor deficit. No sensory deficit. Moving all extremities. No slurred speech. CN 2 through 12 grossly intact Psych: calm, cooperative, normal affect Course Course Course Narrative: This is a rapid medical exam performed by Jorge Hopper NP: Additional HPI, ROS, PE not included below will be deferred to primary provider. Patient is a 50-year-old female with history of uric acid kidney stone, pyelo, nausea and vomiting for 4 days, left lower quadrant abdominal pain and foul-smelling urine. Plan: UA, labs Medications Administered Discontinued Medications Generic Name Dose Route Start Last Admin Trade Name Esther PRN Reason Stop Dose Admin Sodium Chloride 1,000 mls @ 999 mls/hr 04/07/24 00:42 04/07/24 01:41 Ns IVCONT 04/07/24 01:42 999 mls/hr .Q1H1M ONE Administration Levofloxacin 500 mg in 100 mls @ 100 mls/hr 04/07/24 00:42 04/07/24 01:42 Levaquin IV 04/07/24 01:41 100 mls/hr ONCE ONE Administration Sodium Chloride 1,000 mls @ 999 mls/hr 04/07/24 00:52 04/07/24 01:41 Ns IVCONT 04/07/24 01:52 999 mls/hr .Q1H1M ONE Administration Morphine Sulfate 4 mg 04/07/24 00:52 04/07/24 01:41 Morphine Sulfate 4 Mg/Ml Cartridge IVPUSH 04/07/24 00:53 4 mg ONCE ONE Administration Protocol Ondansetron HCl 4 mg 04/07/24 00:52 04/07/24 01:41 Ondansetron Hcl 4 Mg/2 Ml Vial IVPUSH 04/07/24 00:53 4 mg ONCE ONE Administration Medical Decision Making Medical Decision Making [facility] Narrative: -my interpretation of labs, patient's white blood cell count is 15.8, has been elevated over the last month. Patient's sodium is a bit on the lower side, sodium is 130, creatinine elevated at 1.72 (baseline 1.0) -at this time, patient has no episodes of hypotension, no fever. Lactic acid and blood cultures are pending. -patient is empirically receiving IV fluids based on ideal weight of 60 kg, and levofloxacin. -CT scan of the abdomen pending. -I reviewed patient's microbiology report, there was not a specific bacterial growth in the urine. However, from previous admissions note, patient responded well to ceftriaxone. -my interpretation of CT scan: Enlarged subcapsular hematoma on the left kidney. -patient has no fever, lactic acid normal, no hypotension. Patient's white blood cell count has been chronically elevated. Patient's EDUARDO secondary to urologic obstruction not due to sepsis -I discussed the patient with Dr. Bonilla, requesting that the hospitalist team admits the patient and he will consult in the morning -I discussed the patient with Dr. Sims from the hospitalist team for admission Differential Diagnosis Differential Diagnoses: The differential diagnosis associated with the presentation includes (UTI, pyelonephritis, subcapsular hematoma) Admission/Observation Consideration of admission/observation: Escalation of care including admission/observation considered Consult Healthcare Provider Management of the patient was discussed with: Hospitalist and Nail Puller Lab Data MDM Lab Attestation statement: I reviewed the patient's lab results. 04/06/24 16:49 04/06/24 16:49 Labs: Lab Results 04/06/24 04/07/24 Range/Units 16:49 01:30 WBC 15.8 H (4.8-10.8) X10*3/uL RBC 4.84 (4.20-5.50) X10*6/uL Hgb 11.5 L (12.0-16.0) g/dl Hct 36.0 L (37.0-47.0) % MCV 74.4 L (80.0-98.0) fL MCH 23.8 L (27.0-33.0) pg MCHC 31.9 (31.0-35.0) g/dl RDW 15.9 (11.0-16.0) % Plt Count 644 H D (160-400) X10*3/uL MPV 9.2 L (9.4-12.3) fL Immature Gran % (Auto) 0.6 H (0.0-0.4) % Neut % (Auto) 74.8 H (45-73) % Lymph % (Auto) 18.1 L (20-40) % [place] % (Auto) 5.8 (2-11) % Eos % (Auto) 0.4 (0-4) % Baso % (Auto) 0.3 (0-2) % Lymph # (Auto) 2.9 (1.2-4.9) X10*3/uL [place] # (Auto) 0.9 (0.1-1.2) X10*3/uL Eos # (Auto) 0.1 (0.0-0.4) X10*3/uL Baso # (Auto) 0.0 (0.0-0.2) X10*3/uL Abs Immat Gran (auto) 0.10 H (0.00-0.03) X10*3/uL Absolute Neuts (auto) 11.8 H (2.0-8.3) x10*3/uL Absolute Nucleated RBC 0.000 (0.0-0.012) X10*3/uL Nucleated RBC % (auto) 0.0 (0.0-0.2) /100WBC Sodium 130 L (135-145) mmol/L Potassium 3.9 (3.3-5.1) mmol/L Chloride 87 L (96-108) mmol/L Carbon Dioxide 30 H (22-29) mmol/L Anion Gap 17 (12-20) BUN 18 H (9-16) mg/dL Creatinine 1.72 H (0.5-1.4) mg/dL Estim Creat Clear Calc 52.1 Estimated GFR 31 Random Glucose 195 H (60-115) mg/dL Lactic Acid 0.9 (0.5-2.0) mmol/L Calcium 9.1 (8.4-10.2) mg/dL Total Bilirubin 0.5 (0.0-1.0) mg/dL AST 16 (5-31) U/L ALT 10 (0-31) U/L Alkaline Phosphatase 129 H (39-117) U/L Total Protein 8.0 (6.5-8.0) g/dL Albumin 3.1 L (3.5-5.0) g/dL Beta HCG, Quant < 2 mIU/mL Urine Color Yellow Urine Appearance Cloudy Urine pH 5.5 (5.0-9.0) Ur Specific [place] 1.020 (1.005-1.025) Urine Protein 100 (2+) H (Neg-Trace) mg/dL Urine Glucose (UA) Negative (Negative) mg/dL Urine Ketones Negative (Negative) mg/dL Urine Blood Moderate (2+) H (Negative) Urine Nitrite Negative (Negative) Ur Leukocyte Esterase Moderate (2+) H (Negative) Urine RBC 6-10 H (0-2) /HPF Urine WBC 11-20 (0-5) /HPF Ur Squamous Epith Cells >20 (0-2) /HPF Urine Bacteria 1+ (None Seen) Hyaline Casts 0-2 (0-2) /LPF Independent Interpretation I performed an independent interpretation of an: CT Scan Radiology Impression Discussion of test interpretation with radiology: I have reviewed the radiologist's reading. Radiologist Impression: FINDINGS: LUNG BASES: The visualized lung bases are unremarkable. LIVER, GALLBLADDER, AND BILIARY TREE: The liver is normal in size, shape, and attenuation. No focal hepatic lesion or biliary ductal dilatation is present. The gallbladder is unremarkable with no evidence of radiopaque gallstones, gallbladder wall thickening, or obvious pericholecystic inflammatory changes. PANCREAS: Unremarkable. SPLEEN: Unremarkable. ADRENAL GLANDS: Unremarkable. KIDNEYS AND URETERS: The right kidney is normal in size and attenuation. There is a small cyst upper pole right kidney measuring 2 cm similar to previous. There is a large apparently subcapsular hemorrhage significantly increased in size measuring up to 9 cm currently and appearing to decompress the left renal parenchyma. There are apparent left renal calcification/renal vascular calcifications similar to previous. A left-sided stent is noted in place with proximal stent in the region of the left renal hilum and distal stent extending into the urinary bladder. There is no hydronephrosis. BLADDER: Unremarkable. GASTROINTESTINAL TRACT: The small and large bowel are unremarkable. The appendix is unremarkable. ABDOMINAL WALL: No significant hernia is appreciated. LYMPH NODES: Normal. VASCULAR: Unremarkable. PELVIC VISCERA: Unremarkable. OSSEOUS STRUCTURES: There is mild diffuse thoracolumbar disc degenerative change. CT/CT abdomen pelvis wo IV con IMPRESSION: 1. Significant increase in size in the left subcapsular hemorrhage now with compression of the left renal parenchyma. 2. Left-sided stent in place. No hydronephrosis. 3. Stable right renal cyst. Fleischner guidelines were followed. Critical Care Time Critical Care Time Critical Care Time: Yes Total Critical Care Time: 60 Attestation: I have personally provided critical care time. Time includes review of lab data, radiology results, discussion with consultants, and monitoring for potential decompensation. Intervention performed as documented. Discharge Plan Discharge Clinical Impression: Hematoma of kidney, Acute kidney injury, Lt flank pain, Acute hyponatremia Patient Disposition: Admitted As Inpatient Print Language: Romansh
[2024-04-06 16:54] LABS: MANUAL DIFF FLAG NO
[2024-04-06 16:57] LABS: Appearance Urine Cloudy; Color Urine Yellow; Glucose Urine UA Negative (Negative); Leukocyte Esterase Urine Moderate (2+) (Negative); Nitrite Urine Negative (Negative); PH 5.5 (5.0-9.0); UMIC TRIGGER UACC YES; Urine Blood Moderate (2+) (Negative); Urine Ketones Negative (Negative); Urine Protein 100 (2+) mg/dL (Neg-Trace)
[2024-04-06 17:03] LABS: Basophils Percent Auto 0.3 % (0-2); Eosinophils Absolute Auto 0.1 X10*3/uL (0.0-0.4); Eosinophils Percent Auto 0.4 % (0-4); Hemoglobin 11.5 g/dl (12.0-16.0); Imm Gran Pct Auto 0.6 % (0.0-0.4); Lymphocytes Absolute Auto 2.9 X10*3/uL (1.2-4.9); Lymphocytes Percent Auto 18.1 % (20-40); Mean Corpuscular HGB Conc 31.9 g/dl (31.0-35.0); Mean Corpuscular Hemoglobin 23.8 pg (27.0-33.0); Mean Corpuscular Volume 74.4 fL (80.0-98.0); Mean Platelet Volume 9.2 fL (9.4-12.3); Monocytes Absolute Auto 0.9 X10*3/uL (0.1-1.2); Monocytes Percent Auto 5.8 % (2-11); Neutrophils Absolute Auto 11.8 x10*3/uL (2.0-8.3); Neutrophils Percent Auto 74.8 % (45-73); Platelet Count 644 X10*3/uL (160-400); Red Blood Count 4.84 X10*6/uL (4.20-5.50); Red Cell Distribution Width 15.9 % (11.0-16.0); White Blood Count 15.8 X10*3/uL (4.8-10.8)
[2024-04-06 17:12] LABS: Bacteria Urine 1+ (None Seen); Hyaline Casts Urine 0-2 /LPF (0-2); Squamous Epithelial Cell Urine >20 /HPF (0-2); UACC Culture Trigger YES
[2024-04-06 17:16] LABS: Alanine Aminotransferase 10 U/L (0-31); Albumin Level 3.1 g/dL (3.5-5.0); Alkaline Phosphatase 129 U/L (39-117); Anion Gap 17 (12-20); Aspartate Amino Transferase 16 U/L (5-31); Bilirubin Total 0.5 mg/dL (0.0-1.0); Blood Urea Nitrogen 18 mg/dL (9-16); Calcium 9.1 mg/dL (8.4-10.2); Carbon Dioxide 30 mmol/L (22-29); Chloride 87 mmol/L (96-108); Creatinine Clr Calc Pharmacy 52.1; Estimated Glomerular Filt Rate 31; Glucose Random 195 mg/dL (60-115); Potassium 3.9 mmol/L (3.3-5.1); Sodium 130 mmol/L (135-145)
[2024-04-06 17:17] LABS: HCG Quantitative < 2 mIU/mL
[2024-04-06 21:11] VITALS: BP 147/83; PULSE 101; RESP 16; TEMP 36.8; O2SAT 97
[2024-04-07] VITALS (8 sets, daily range): BP systolic 103–139; BP diastolic 48–79; PULSE 80–97; RESP 15–20; TEMP 36.2–37.2; O2SAT 95–99; BMI 48.8
[2024-04-07] MEDS: 0.9 % Sodium Chloride 1,000 ML 999 ML IVCONT ×2 (01:41)
[2024-04-07] MEDS: ondansetron HCL 4 MG/2 ML VIAL IVPUSH ×3 (01:41→18:46)
[2024-04-07] MEDS: Morphine Sulfate 4 MG/ML CARTRIDGE IVPUSH (01:41)
[2024-04-07] MEDS: levoFLOXacin/D5W 500 MG/100 ML PIGGYBACK 100 MG IV (01:42)
[2024-04-07 01:49] LABS: Lactic Acid 0.9 mmol/L (0.5-2.0)
--- NOTE | 2024-04-07 04:26 | P.HPHOSP_ITS ---
History of Present Illness Date of Service: 04/07/24 Attending physician on admission: Felecia Cho Chief Complaint: Left lower quadrant pain Gabriela Fernández is a 53 years old woman with past medical history significant for nephrolithiasis, s/p hospitalization (UTI, EDUARDO, s/p ureteral stent placement on March [address] Ochoa), left subcapsular hemorrhage, type 2 diabetes mellitus, obesity, essential hypertension, asthma and hyperlipidemia presents to the emergency department complaining of worsening left lower quadrant and left flank pain that has been getting worse over the last 2 weeks associated with nausea and vomiting. Denies acute urinary changes, fevers, chills or diarrhea. Patient did not report any acute cardiopulmonary symptoms. In the ED. she was found to have mild tachycardia. There is no fever or hypotension. Blood workup was remarkable for leukocytosis of 15.8. Hemoglobin is at baseline. Platelets are elevated. Corrected sodium is 132. Creatinine is 1.72 (it was normal 1 month ago). LFTs are essentially normal except for slight elevation of alk-phos. Urinalysis shows microscopic hematuria and findings suggestive UTI. Abdomen pelvis CT scan showed significant increase in size in the left subcapsular hemorrhage now with compression of the left renal parenchyma, left-sided stent in place without hydronephrosis. ED tx: NS 2 L bolus, levofloxacin 500 mg IV, morphine 4 mg IV Review of Systems 2 Review of Systems: All 12 systems were reviewed and normal except as noted in HPI. [facility] Medical History Asthma Benign paroxysmal positional vertigo Obesity Cataract CKD (chronic kidney disease) Depression HLD (hyperlipidemia) Diabetes HTN (hypertension) Sleep apnea History of kidney stones History of in vitro fertilization Family History Father Cancer Mother Epilepsia Dementia Brother Drug abuse Bipolar 1 disorder Son No problems noted. Surgical History H/O breast biopsy History of ureteroscopy Hx of ectopic History of open heart surgery Social History Household Members: Spouse and Children Housing: House Do you presently have visiting nurse or other home services: No Alcohol intake: never Patient Tobacco Use Status: Never used Tobacco Smoked in Last 30 Days: No Use of substances other than those prescribed or required for medical reasons: No Advance Directives: No Advance Directives Information Provided: No Nutrition Risks: No Nutritional Risk service: No Meds Allergies Allergy/AdvReac Type Severity Reaction Status Date / Time sulfamethoxazole Allergy Mild Hives Verified 04/06/24 16:00 [From Bactrim] trimethoprim [From Bactrim] Allergy Unknown Anaphylaxis Verified 04/06/24 16:00 FISH Allergy Unknown Anaphylaxis Uncoded 04/06/24 16:00 Active Medications: Current Medications Acetaminophen (Acetaminophen 325 Mg Tablet) 650 mg PO Q6H PRN PRN Reason: Fever, Headache, Pain 1-3 Calcium Carbonate (Calcium Carbonate 750 Mg Tab.Chew) 750 mg PO Q6H PRN PRN Reason: Heartburn Glucose (Glucose Gel 15 Gm Gel..Gram.) 15 gm PO Q15M PRN; Protocol PRN Reason: per Hypoglycemia Standing Ord. Hydromorphone HCl (Hydromorphone Hcl 1 Mg/Ml Syringe) 1 mg IVPUSH ONCE STA; Protocol Stop: 04/07/24 04:25 Hydromorphone HCl (Hydromorphone Hcl 1 Mg/Ml Syringe) 1 mg IVPUSH Q3H PRN; Protocol PRN Reason: Pain, Severe (Pain Scale 7-10) Sodium Chloride (Ns) 1,000 mls @ 100 mls/hr IVCONT .Q10H NUBIA Dextrose (D10) 250 mls @ 750 mls/hr IV Q15M PRN; Protocol PRN Reason: per Hypoglycemia Standing Ord. Insulin Human Lispro (Insulin Lispro 100 Unit/Ml 3 Ml Vial) 0 unit SUBCUT QIDACHS [facility]; Protocol Magnesium Hydroxide (Milk Of Magnesia 30 Ml Oral.Susp) 30 ml PO DAILY PRN PRN Reason: Constipation Melatonin (Melatonin 3 Mg Tablet) 6 mg PO BEDTIME PRN PRN Reason: Insomnia Polyethylene Glycol (Polyethylene Glycol 3350 17 Gm Powd.Pack) 17 gm PO DAILY PRN PRN Reason: Constipation Sodium Chloride (0.9 % Sodium Chloride Flush 3 Ml Syringe) [facility] Medications ?Medication ?Instructions ?Recorded ?Confirmed ?Last Taken ?Type albuterol sulfate 90 mcg/actuation 2 puff inhalation Q4-6H PRN 09/17/23 03/23/24 Unknown History aerosol inhaler (Ventolin HFA) Shortness Of Breath Or Wheezing budesonide-formoterol HFA 160 2 puff inhalation BID 09/17/23 03/23/24 Unknown History mcg-4.5 mcg/actuation aerosol inhaler (Symbicort) citalopram 40 mg tablet 40 mg PO DAILY 09/17/23 03/23/24 Unknown History lisinopril 20 mg tablet 20 mg PO DAILY 09/17/23 03/23/24 Unknown History meclizine 25 mg tablet 25 mg PO DAILY Vertigo 09/17/23 03/23/24 Unknown History metformin 1,000 mg tablet 1,000 mg PO BID 09/17/23 03/23/24 Unknown History montelukast 10 mg tablet 10 mg PO DAILY 09/17/23 03/23/24 Unknown History norethindrone acetate 5 mg tablet 5 mg PO DAILY 09/17/23 03/23/24 Unknown History simvastatin 40 mg tablet 40 mg PO BEDTIME 09/17/23 03/23/24 Unknown History tirzepatide 7.5 mg/0.5 mL 7.5 mg subcut QWEEK 03/02/24 03/23/24 Unknown History subcutaneous pen injector (Mounjaro) Physical Exam 2 Vital Signs and Narrative: Vital Signs: Last Vital Signs Temp 99.0 F 04/07/24 00:23 Pulse 97 04/07/24 00:23 Resp 20 04/07/24 00:23 BP 132/77 04/07/24 00:23 Pulse Ox 95 04/07/24 00:23 O2 Del Method Room Air 04/07/24 00:23 BMI result Body Mass Index 48.7 Constitutional - Awake and Alert. Looks uncomfortable due to pain. Pleasant. Cooperative. Obese. HEENT - Dry oral mucosa. Heart - S1S2, RRR. Lungs - Normal lung expansion, Normal respiratory effort, No respiratory distress, CTA bilaterally Abdomen - Large pannus. LLQ/flank tenderness. No rebound. No guarding. - No CVA tenderness Extremities - no calf tenderness bilaterally, no swelling Skin - Warm/Dry Neurological - Alert & oriented x3. No focal weakness grossly noted. Moving all extremities. Normal speech. Psychological - Appropriate affect Results Labs 04/06/24 16:49 04/06/24 16:49 Labs: Laboratory Results - last 24 hr 04/06/24 04/07/24 16:49 01:30 MCV 74.4 L MCH 23.8 L MCHC 31.9 RDW 15.9 Plt Count 644 H D MPV 9.2 L Immature Gran % (Auto) 0.6 H Neut % (Auto) 74.8 H Lymph % (Auto) 18.1 L Sumner % (Auto) 5.8 Eos % (Auto) 0.4 Baso % (Auto) 0.3 Lymph # (Auto) 2.9 Sumner # (Auto) 0.9 Eos # (Auto) 0.1 Baso # (Auto) 0.0 Abs Immat Gran (auto) 0.10 H Absolute Neuts (auto) 11.8 H Absolute Nucleated RBC 0.000 Nucleated RBC % (auto) 0.0 Anion Gap 17 Estim Creat Clear Calc 52.1 Estimated GFR 31 Random Glucose 195 H Lactic Acid 0.9 Calcium 9.1 Total Bilirubin 0.5 AST 16 ALT 10 Alkaline Phosphatase 129 H Total Protein 8.0 Albumin 3.1 L Beta HCG, Quant < 2 Urine Color Yellow Urine Appearance Cloudy Urine pH 5.5 Ur Specific [place] 1.020 Urine Protein 100 (2+) H Urine Glucose (UA) Negative Urine Ketones Negative Urine Blood Moderate (2+) H Urine Nitrite Negative Ur Leukocyte Esterase Moderate (2+) H Urine RBC 6-10 H Urine WBC 11-20 Ur Squamous Epith Cells >20 Urine Bacteria 1+ Hyaline Casts 0-2 Imaging Radiologist's Impressions: Impressions Abdomen/Pelvis CT 04/07/24 00:59 IMPRESSION: 1. Significant increase in size in the left subcapsular hemorrhage now with compression of the left renal parenchyma. 2. Left-sided stent in place. No hydronephrosis. 3. Stable right renal cyst. Fleischner guidelines were followed. Assessment and Plan (1) Lt flank pain: Status: Acute (2) Hematoma of kidney: Qualifiers: Encounter type: subsequent encounter Laterality: left Qualified Code(s): S37.012D - Minor contusion of left kidney, subsequent encounter Status: Acute (3) Acute kidney injury: Status: Acute Plan Gabriela Fernández is a 53 years old woman with PMHx significant for nephrolithiasis and s/p hospitalization (UTI, EDUARDO, s/p ureteral stent placement on March [address] Ochoa) admitted with: * Worsening left flank/LLQ pain likely secondary to worsening subcapsular hemorrhage w/ compression of the left renal parenchyma. Admit to hospitalist service. Pain control with Dilaudid as needed. Urology consult. * Acute kidney injury likely multifactorial: Due to above, lisinopril use and poor PO intake. Continue IV fluids. Hold lisinopril. Continue to monitor renal function. Avoid nephrotoxic agents. * Hyponatremia. Likely secondary to dehydration. Continue IV fluids. Continue to monitor sodium level. * Presumed urinary tract infection. Ceftriaxone 1 g IV daily. Urine cultures obtained -will follow results. * Type 2 diabetes mellitus. Hold metformin due to elevated creatinine. BG checks before meals and bedtime. Glucose control with insulin sliding scale. She uses Maunjaro but this is not available here. * Essential hypertension. Lisinopril on hold due to elevated creatinine. BP currently is normal. Continue to monitor BP. * Hyperlipidemia. Continue statin. * Asthma. Bronchodilator therapy as needed. Continue montelukast and Symbicort. * Obesity. BMI 48.7 kg/m2. Weight loss. Code status: Full DVT prophylaxis: SCDs only Patient will need hospitalization for at least 2 midnights for EDUARDO and left lower quadrant pain management with IV fluids and IV pain meds, respectively. Patient also will need evaluation for urology service for worsening subcapsular hemorrhage. Quality Stroke Does the patient have a stroke diagnosis?: No VTE Prior VTE?: No VTE Risk Level:: Medical - moderate - high VTE Device Contraindication: N/A - Device Ordered VTE Drug Contraindication: Treatment Not Indicated
[2024-04-07] MEDS: HYDROmorphone HCl 1 MG/ML SYRINGE IVPUSH ×2 (04:42→18:46)
[2024-04-07] MEDS: 0.9 % Sodium Chloride 1,000 ML 100 ML IVCONT ×2 (04:42→14:43)
[2024-04-07 05:09] LABS: Hematocrit 32.8 % (37.0-47.0); Mean Corpuscular HGB Conc 30.5 g/dl (31.0-35.0); Mean Corpuscular Hemoglobin 23.3 pg (27.0-33.0); Mean Corpuscular Volume 76.3 fL (80.0-98.0); Mean Platelet Volume 9.2 fL (9.4-12.3); Platelet Count 539 X10*3/uL (160-400); Red Cell Distribution Width 16.1 % (11.0-16.0); White Blood Count 13.1 X10*3/uL (4.8-10.8)
[2024-04-07 05:27] LABS: Anion Gap 14 (12-20); Blood Urea Nitrogen 16 mg/dL (9-16); Calcium 8.3 mg/dL (8.4-10.2); Carbon Dioxide 27 mmol/L (22-29); Chloride 93 mmol/L (96-108); Creatinine Clr Calc Pharmacy 60.9; Estimated Glomerular Filt Rate 37; Glucose Random 199 mg/dL (60-115); Potassium 3.3 mmol/L (3.3-5.1); Sodium 131 mmol/L (135-145)
[2024-04-07 07:33] LABS: Glucose, Whole Blood 179 mg/dL (60-115)
[2024-04-07] MEDS: Insulin Lispro 100 UNIT/ML 3 ML VIAL SUBCUT ×4 (07:41→21:41)
[2024-04-07] MEDS: cefTRIAXone sodium 1 GM in 0.9 % Sodium Chloride 50 ML IV (08:26)
--- NOTE | 2024-04-07 08:30 | PC.NURSE ---
this RN resumed care of pt at 0700. a&ox4. vss and up to date. pt denies pain. pt actively vomiting. prn zofran utilized. effectiveness pending. abx administered per provider order. IVF continues to infuse at 100mls/hr. no sob/wob noted. respirations even an unlabored. pt waiting for bed assignment at this time. plan of care ongoing.
--- NOTE | 2024-04-07 09:47 | PHA.MEDREC ---
Pharmacy Consult ? Medication Reconciliation Pharmacy has completed the medication reconciliation.
[2024-04-07] MEDS: Meclizine HCl 25 MG TABLET PO (10:52)
--- NOTE | 2024-04-07 10:52 | PC.NURSE ---
pt continues to rest comfortably in no apparent distress. medication administered per provider order. denies pain/has no acute complaints. no sob/wob noted. respirations even and unlabored. pt waiting for bed assignment. call berry placed within reach.
[2024-04-07 12:02] LABS: Glucose, Whole Blood 240 mg/dL (60-115)
--- NOTE | 2024-04-07 12:48 | MHC.CM.PN ---
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 She is independent with all functional mobility. She lives with her spouse. He will provide transportation at discharge. DP home no services private transport.
--- NOTE | 2024-04-07 13:22 | PC.NURSE ---
Addendum entered by Leah Rahman 04/07/24 13:22: insulin administered per sliding scale/per provider order. pt still denies pain. pt has no acute complaints. resting comfortable w/ lights dimmed eating lunch. no sob/wob noted. respirations remain even and unlabored. call berry placed within reach. Original Note: insulin admiistered per sliing
--- NOTE | 2024-04-07 13:24 | PM.EVENT ---
Event Note Date of Service: 04/07/24 Event Note: Seen and evaluated this morning Cr trending down Na of 131 now continue IVF Pending Urology eval Continue IV Ceftriaxone follow H&H Pain control w Dilaudid Time Spent With Patient Time: Total time managing care of this patient today ____ minutes.
[2024-04-07 17:41] LABS: Glucose, Whole Blood 219 mg/dL (60-115)
--- NOTE | 2024-04-07 18:48 | PC.NURSE ---
pt c/o increase in abd pain - prn medication utilized. effectiveness pending.
[2024-04-07 21:07] LABS: Glucose, Whole Blood 186 mg/dL (60-115)
[2024-04-07] MEDS: Tamsulosin HCL 0.4 MG CAPSULE PO (21:41)
[2024-04-07] MEDS: Montelukast Sodium 10 MG TABLET PO (21:41)
[2024-04-08 02:47] VITALS: BP 153/68; PULSE 96; RESP 19; TEMP 36.1; O2SAT 94
[2024-04-08 05:50] LABS: Hematocrit 31.2 % (37.0-47.0); Hemoglobin 9.6 g/dl (12.0-16.0); Mean Corpuscular HGB Conc 30.8 g/dl (31.0-35.0); Mean Corpuscular Hemoglobin 23.4 pg (27.0-33.0); Mean Corpuscular Volume 76.1 fL (80.0-98.0); Mean Platelet Volume 8.9 fL (9.4-12.3); Platelet Count 570 X10*3/uL (160-400)
[2024-04-08 06:01] LABS: Anion Gap 14 (12-20); Blood Urea Nitrogen 14 mg/dL (9-16); Carbon Dioxide 27 mmol/L (22-29); Chloride 95 mmol/L (96-108); Creatinine Clr Calc Pharmacy 69.5; Estimated Glomerular Filt Rate 43; Glucose Random 209 mg/dL (60-115); Potassium 3.9 mmol/L (3.3-5.1); Sodium 132 mmol/L (135-145)
[2024-04-08 07:19] VITALS: BP 144/67; PULSE 98; RESP 18; TEMP 36.4; O2SAT 95
[2024-04-08 07:31] LABS: Glucose, Whole Blood 178 mg/dL (60-115)
[2024-04-08] MEDS: cefTRIAXone sodium 1 GM in 0.9 % Sodium Chloride 50 ML IV (08:03)
[2024-04-08] MEDS: Insulin Lispro 100 UNIT/ML 3 ML VIAL SUBCUT ×4 (08:03→20:38)
[2024-04-08] MEDS: Meclizine HCl 25 MG TABLET PO (08:03)
[2024-04-08] MEDS: 0.9 % Sodium Chloride 1,000 ML 100 ML IVCONT ×3 (09:24→18:11)
[2024-04-08] MEDS: HYDROmorphone HCl 1 MG/ML SYRINGE IVPUSH (11:11)
--- NOTE | 2024-04-08 11:20 | MHC.CM.PN ---
EMR REVIEWED. PER MD ROUNDS PATIENT IS NOT MEDICALLY CLEARED FOR DC. CM WILL CONTINUE TO FOLLOW.
[2024-04-08 11:33] LABS: Glucose, Whole Blood 202 mg/dL (60-115)
--- NOTE | 2024-04-08 11:55 | P.PNIM_ITS ---
Subjective Subjective Date of Service: 04/08/24 Interval History: Seen and evaluated this morning Concerned about the bleeding but reports pain has improved a little kidney function recovering to baseline Pending CTA Review of Systems Review of Systems: Yes all other systems are reviewed and are negative Physical Exam 2 Vital Signs: Vital Signs: Last Vital Signs Temp 97.5 F 04/08/24 07:19 Pulse 98 04/08/24 07:19 Resp 18 04/08/24 07:19 BP 144/67 H 04/08/24 07:19 Pulse Ox 95 04/08/24 07:19 O2 Del Method Room Air 04/08/24 07:19 BMI result Body Mass Index 48.8 Const: Other: Constitutional : Awake, interactive, obese, not in distress Neck : Normal inspection, Supple Cardiovascular : RRR, no JVP, no lower extremity edema Respiratory : good bilateral air entry, no crackles, wheezes or rhonchi Gastrointestinal: soft, lax, Normal bowel sounds, Non tender Skin : Warm, Dry Neurological : Alert & oriented x3, No focal deficit Objective Data Active Medications Acetaminophen (Acetaminophen 325 Mg Tablet) 650 mg PO Q6H PRN PRN Reason: Fever, Headache, Pain 1-3 Albuterol Sulfate (Albuterol Sulfate 90 Mcg 8 Gm Inhaler) 2 puff INHALE Q6H PRN PRN Reason: Shortness Of Breath Or Wheezing Calcium Carbonate (Calcium Carbonate 750 Mg Tab.Chew) 750 mg PO Q6H PRN PRN Reason: Heartburn Fluticasone/Vilanterol (Fluticasone/Vilanterol 200/25 Blst.W.Dev) 1 puff INHALE RDAILY [facility] Last Admin: 04/08/24 11:43 Dose: Not Given Documented By: DEMAR Non-Admin Reason: Patient Refused Glucose (Glucose Gel 15 Gm Gel..Gram.) 15 gm PO Q15M PRN; Protocol PRN Reason: per Hypoglycemia Standing Ord. Hydromorphone HCl (Hydromorphone Hcl 1 Mg/Ml Syringe) 1 mg IVPUSH Q3H PRN; Protocol PRN Reason: Pain, Severe (Pain Scale 7-10) Last Admin: 04/08/24 11:11 Dose: 1 mg Documented By: MELIDA Sodium Chloride (Ns) 1,000 mls @ 100 mls/hr IVCONT .Q10H [facility] Last Admin: 04/08/24 09:24 Dose: 100 mls/hr Documented By: MELIDA Dextrose (D10) 250 mls @ 750 mls/hr IV Q15M PRN; Protocol PRN Reason: per Hypoglycemia Standing Ord. Ceftriaxone Sodium 1 gm/ (Sodium Chloride) 50 mls @ 100 mls/hr IV Q24H [facility] Last Infusion: 04/08/24 08:43 Dose: Infused Documented By: MELIDA Insulin Human Lispro (Insulin Lispro 100 Unit/Ml 3 Ml Vial) 0 unit SUBCUT QIDACHS [facility]; Protocol Last Admin: 04/08/24 08:03 Dose: 2 unit Documented By: MELIDA Magnesium Hydroxide (Milk Of Magnesia 30 Ml Oral.Susp) 30 ml PO DAILY PRN PRN Reason: Constipation Meclizine HCl (Meclizine Hcl 25 Mg Tablet) 25 mg PO DAILY [facility] Last Admin: 04/08/24 08:03 Dose: 25 mg Documented By: MELIDA Melatonin (Melatonin 3 Mg Tablet) 6 mg PO BEDTIME PRN PRN Reason: Insomnia Montelukast Sodium (Montelukast Sodium 10 Mg Tablet) 10 mg PO BEDTIME [facility] Last Admin: 04/07/24 21:41 Dose: 10 mg Documented By: ROWAN Non-Formulary Medication (Norethindrone Acetate) 5 mg PO DAILY [facility] Ondansetron HCl (Ondansetron Hcl 4 Mg/2 Ml Vial) 4 mg IVPUSH Q4H PRN PRN Reason: Nausea and Vomiting Last Admin: 04/07/24 18:46 Dose: 4 mg Documented By: SNOW Polyethylene Glycol (Polyethylene Glycol 3350 17 Gm Powd.Pack) 17 gm PO DAILY PRN PRN Reason: Constipation Sodium Chloride (0.9 % Sodium Chloride Flush 3 Ml Syringe) 3 ml IVFLUSH QSHIFT [facility] Last Admin: 04/08/24 07:18 Dose: Not Given Documented By: MELIDA Non-Admin Reason: IV Running Tamsulosin HCl (Tamsulosin Hcl 0.4 Mg Capsule) 0.4 mg PO BEDTIME [facility] Last Admin: 04/07/24 21:41 Dose: 0.4 mg Documented By: ROWAN Labs 04/08/24 05:38 04/08/24 05:38 Labs: Laboratory Results - last 24 hr 04/07/24 04/07/24 04/07/24 11:58 17:36 21:04 MCV MCH MCHC RDW Plt Count MPV Absolute Nucleated RBC Nucleated RBC % (auto) Anion Gap Estim Creat Clear Calc Estimated GFR POC Glucose 240 H 219 H 186 H Random Glucose Calcium 04/08/24 04/08/24 04/08/24 05:38 07:27 11:27 MCV 76.1 L MCH 23.4 L MCHC 30.8 L RDW 16.0 Plt Count 570 H MPV 8.9 L Absolute Nucleated RBC 0.000 Nucleated RBC % (auto) 0.0 Anion Gap 14 Estim Creat Clear Calc 69.5 Estimated GFR 43 POC Glucose 178 H 202 H Random Glucose 209 H Calcium 8.0 L Microbiology Microbiology Results: Microbiology 04/07/24 01:29 Blood Culture - Preliminary Blood - Venous No growth after 24 hours. 04/07/24 01:30 Blood Culture - Preliminary Blood - Venous No growth after 24 hours. 04/06/24 Unknown Urine Culture - Preliminary Urine clean catch - Urine youssef top No growth to date. Assessment and Plan (1) Acute hyponatremia: Status: Acute (2) Lt flank pain: Status: Acute (3) Acute kidney injury: Status: Acute (4) Hematoma of kidney: Status: Acute Plan Gabriela Fernández is a 53 years old woman with PMHx significant for nephrolithiasis and s/p hospitalization (UTI, EDUARDO, s/p ureteral stent placement on March [address] Ochoa) admitted with: # acute left flank/LLQ pain secondary to worsening subcapsular hemorrhage w/ compression of the left renal parenchyma. Dilaudid as needed. Urology consult. do CTA for site of bleeding # Acute kidney injury likely 2/2 bleeding, medications and dehydration Hold lisinopril Continue IV fluids Monitor BMP Avoid nephrotoxic agents. # acute Hyponatremia Likely secondary to EDUARDO and dehydration Improving slowly Continue IV fluids follow BMP # Presumed urinary tract infection Ceftriaxone 1 g IV daily. Urine cultures pending, follow results. # Type 2 diabetes mellitus. Hold metformin due to elevated creatinine. BG checks before meals and bedtime. Glucose control with insulin sliding scale. She uses Maunjaro but this is not available here. # Essential hypertension. Lisinopril on hold due to elevated creatinine. BP currently is normal. Continue to monitor BP. # Hyperlipidemia. Continue statin. # Asthma. Bronchodilator therapy as needed. Continue montelukast and Symbicort. # Obesity. BMI 48.7 kg/m2. Weight loss. Code status: Full DVT prophylaxis: SCDs only Patient will need hospitalization overnight for EDUARDO and left lower quadrant pain management with IV fluids and IV pain meds, respectively. Patient also will need evaluation for urology service for worsening subcapsular hemorrhage. Quality Stroke Does the patient have a stroke diagnosis?: No VTE Prior VTE?: No VTE Risk Level:: Medical - moderate - high VTE Device Contraindication: N/A - Device Ordered VTE Drug Contraindication: Treatment Not Indicated
[2024-04-08] MEDS: iohexoL 350 MG/ML 100 ML INFUS..BTL IV (14:23)
[2024-04-08] MEDS: Sodium Bicarbonate 8.4% 50 MEQ/50 ML SYRINGE IVPUSH (15:44)
[2024-04-08] MEDS: 0.9 % Sodium Chloride Flush 3 ML SYRINGE IVFLUSH (15:46)
[2024-04-08 16:00] VITALS: BP 130/62; PULSE 95; RESP 18; TEMP 36.8; O2SAT 92
[2024-04-08 16:36] LABS: Glucose, Whole Blood 223 mg/dL (60-115)
[2024-04-08 19:11] VITALS: BP 132/64; PULSE 101; RESP 18; TEMP 37.4; O2SAT 94
[2024-04-08] MEDS: Albuterol Sulfate 90 MCG 8 GM INHALER 2 PUFF INHALE (19:20)
[2024-04-08 20:13] LABS: Glucose, Whole Blood 251 mg/dL (60-115)
[2024-04-08] MEDS: Tamsulosin HCL 0.4 MG CAPSULE PO (20:38)
[2024-04-08] MEDS: Montelukast Sodium 10 MG TABLET PO (20:38)
[2024-04-09 03:46] VITALS: BP 140/63; PULSE 88; RESP 20; TEMP 36.3; O2SAT 92
[2024-04-09] MEDS: 0.9 % Sodium Chloride 1,000 ML 100 ML IVCONT (03:57)
[2024-04-09 06:25] LABS: Hematocrit 32.1 % (37.0-47.0); Hemoglobin 9.8 g/dl (12.0-16.0); Mean Corpuscular HGB Conc 30.5 g/dl (31.0-35.0); Mean Corpuscular Hemoglobin 23.4 pg (27.0-33.0); Mean Corpuscular Volume 76.8 fL (80.0-98.0); Platelet Count 572 X10*3/uL (160-400); Red Blood Count 4.18 X10*6/uL (4.20-5.50)
[2024-04-09 06:39] LABS: Anion Gap 15 (12-20); Blood Urea Nitrogen 10 mg/dL (9-16); Carbon Dioxide 26 mmol/L (22-29); Chloride 97 mmol/L (96-108); Estimated Glomerular Filt Rate 48; Glucose Random 212 mg/dL (60-115); Potassium 3.5 mmol/L (3.3-5.1); Sodium 134 mmol/L (135-145)
[2024-04-09 07:13] VITALS: BP 134/77; PULSE 97; RESP 18; TEMP 36; O2SAT 92
[2024-04-09 07:21] LABS: Glucose, Whole Blood 205 mg/dL (60-115)
[2024-04-09] MEDS: Insulin Lispro 100 UNIT/ML 3 ML VIAL SUBCUT ×4 (07:55→22:30)
[2024-04-09] MEDS: 0.9 % Sodium Chloride Flush 3 ML SYRINGE IVFLUSH ×3 (07:56→22:26)
[2024-04-09] MEDS: cefTRIAXone sodium 1 GM in 0.9 % Sodium Chloride 50 ML IV (09:06)
[2024-04-09] MEDS: Meclizine HCl 25 MG TABLET PO (09:06)
[2024-04-09] MEDS: Tranexamic Acid 1,000 MG in 0.9 % Sodium Chloride 50 ML 360 MG IV (09:57)
--- NOTE | 2024-04-09 10:53 | PM.UROCN ---
History of Present Illness Consult details Consult date: 04/08/24 Narrative: CC: slowly expanding left renal hematoma Miryam is a 53-year-old female Underwent ureteroscopy for nephrolithiasis in January Presented to hospital with steinstrassen from kidney stones and stent placed March 03 At that time diagnosed with left subcapsular hemorrhage Presents with worsening of left lower quadrant and left flank pain over the past 2 weeks. Associated with nausea and vomiting. Hematocrit 32, relatively stable running back for past month Leukocytosis 15.8 other labs relatively normal. Creatinine 1.7 Imaging - CT non con - There is a large apparently subcapsular hemorrhage significantly increased in size measuring up to 9 cm currently and appearing to decompress the left renal parenchyma. - contrast imaging - Large left subcapsular hematoma measuring 12.8 x 9.8 x 14.6 cm resulting in extrinsic compression of the renal parenchyma. No focal pseudoaneurysm or active extravasation is identified in the region of the hematoma. Blood culture no evidence of infection Given no active bleeding will trial tranexamic acid to try to help with clotting of ooze Follow clinically - no indication for transfusion Review of Systems Constitutional: Constitutional: Reports as per HPI and Reports no additional constitutional complaints Cardiovascular: Cardiovascular: Reports as per HPI and Reports no additional cardiovascular complaints Respiratory: Respiratory: Reports as per HPI and Reports no additional respiratory complaints Gastrointestinal: Gastrointestinal: Reports as per HPI and Reports no additional gastrointestinal complaints Genitourinary: Genitourinary: Reports as per HPI Musculoskeletal: Musculoskeletal: Reports no additional musculoskeletal complaints and Reports as per HPI Neurologic: Reports system reviewed and no additional complaints, except as documented and Reports as per HPI [facility] Past Medical History Medical History Asthma Benign paroxysmal positional vertigo Obesity Cataract CKD (chronic kidney disease) Depression HLD (hyperlipidemia) Diabetes HTN (hypertension) Sleep apnea History of kidney stones History of in vitro fertilization Family History Family History Father Cancer Mother Epilepsia Dementia Brother Drug abuse Bipolar 1 disorder Son No problems noted. Surgical History Surgical History H/O breast biopsy History of ureteroscopy Hx of ectopic History of open heart surgery Social History Social History Household Members: Family Housing: House Do you presently have visiting nurse or other home services: No Alcohol intake: never Patient Tobacco Use Status: Never used Tobacco service: No Meds Allergies Allergy/AdvReac Type Severity Reaction Status Date / Time sulfamethoxazole Allergy Mild Hives Verified 04/06/24 16:00 [From Bactrim] trimethoprim [From Bactrim] Allergy Unknown Anaphylaxis Verified 04/06/24 16:00 FISH Allergy Unknown Anaphylaxis Uncoded 04/06/24 16:00 Active Medications: Current Medications Acetaminophen (Acetaminophen 325 Mg Tablet) 650 mg PO Q6H PRN PRN Reason: Fever, Headache, Pain 1-3 Albuterol Sulfate (Albuterol Sulfate 90 Mcg 8 Gm Inhaler) 2 puff INHALE Q6H PRN PRN Reason: Shortness Of Breath Or Wheezing Last Admin: 04/08/24 19:20 Dose: 2 puff Calcium Carbonate (Calcium Carbonate 750 Mg Tab.Chew) 750 mg PO Q6H PRN PRN Reason: Heartburn Fluticasone/Vilanterol (Fluticasone/Vilanterol 200/25 Blst.W.Dev) 1 puff INHALE RDAILY [facility] Last Admin: 04/09/24 08:15 Dose: Not Given Glucose (Glucose Gel 15 Gm Gel..Gram.) 15 gm PO Q15M PRN; Protocol PRN Reason: per Hypoglycemia Standing Ord. Hydromorphone HCl (Hydromorphone Hcl 1 Mg/Ml Syringe) 1 mg IVPUSH Q3H PRN; Protocol PRN Reason: Pain, Severe (Pain Scale 7-10) Last Admin: 04/08/24 11:11 Dose: 1 mg Dextrose (D10) 250 mls @ 750 mls/hr IV Q15M PRN; Protocol PRN Reason: per Hypoglycemia Standing Ord. Ceftriaxone Sodium 1 gm/ (Sodium Chloride) 50 mls @ 100 mls/hr IV Q24H [facility] Last Infusion: 04/09/24 10:00 Dose: Infused Insulin Human Lispro (Insulin Lispro 100 Unit/Ml 3 Ml Vial) 0 unit SUBCUT QIDACHS [facility]; Protocol Last Admin: 04/09/24 07:55 Dose: 4 unit Magnesium Hydroxide (Milk Of Magnesia 30 Ml Oral.Susp) 30 ml PO DAILY PRN PRN Reason: Constipation Meclizine HCl (Meclizine Hcl 25 Mg Tablet) 25 mg PO DAILY [facility] Last Admin: 04/09/24 09:06 Dose: 25 mg Melatonin (Melatonin 3 Mg Tablet) 6 mg PO BEDTIME PRN PRN Reason: Insomnia Montelukast Sodium (Montelukast Sodium 10 Mg Tablet) 10 mg PO BEDTIME [facility] Last Admin: 04/08/24 20:38 Dose: 10 mg Non-Formulary Medication (Norethindrone Acetate) 5 mg PO DAILY [facility] Ondansetron HCl (Ondansetron Hcl 4 Mg/2 Ml Vial) 4 mg IVPUSH Q4H PRN PRN Reason: Nausea and Vomiting Last Admin: 04/07/24 18:46 Dose: 4 mg Polyethylene Glycol (Polyethylene Glycol 3350 17 Gm Powd.Pack) 17 gm PO DAILY PRN PRN Reason: Constipation Sodium Chloride (0.9 % Sodium Chloride Flush 3 Ml Syringe) 3 ml IVFLUSH QSHIFT [facility] Last Admin: 04/09/24 07:56 Dose: 3 ml Tamsulosin HCl (Tamsulosin Hcl 0.4 Mg Capsule) 0.4 mg PO BEDTIME [facility] Last Admin: 04/08/24 20:38 Dose: 0.4 mg Home Medications ?Medication ?Instructions ?Recorded ?Confirmed ?Last Taken ?Type albuterol sulfate 90 mcg/actuation 2 puff inhalation Q6H PRN 09/17/23 04/07/24 Unknown History aerosol inhaler (Ventolin HFA) Shortness Of Breath Or Wheezing budesonide-formoterol HFA 160 2 puff inhalation BID 09/17/23 04/07/24 04/05/24 History mcg-4.5 mcg/actuation aerosol inhaler (Symbicort) citalopram 40 mg tablet 40 mg PO DAILY 09/17/23 04/07/24 04/05/24 History lisinopril 20 mg tablet 20 mg PO DAILY 09/17/23 04/07/24 04/05/24 History meclizine 25 mg tablet 25 mg PO DAILY Vertigo 09/17/23 04/07/24 04/05/24 History metformin 1,000 mg tablet 1,000 mg PO BID 09/17/23 04/07/24 04/05/24 History montelukast 10 mg tablet 10 mg PO BEDTIME 09/17/23 04/07/24 04/05/24 History norethindrone acetate 5 mg tablet 5 mg PO DAILY 09/17/23 04/07/24 04/05/24 History simvastatin 40 mg tablet 40 mg PO BEDTIME 09/17/23 04/07/24 04/05/24 History tirzepatide 7.5 mg/0.5 mL 7.5 mg subcut SA@0900 03/02/24 04/07/24 04/02/24 History subcutaneous pen injector (Edison) glipizide 5 mg tablet, extended 5 mg PO DAILY 04/07/24 04/07/24 04/05/24 History release 24 hr tamsulosin 0.4 mg capsule 0.4 mg PO BEDTIME 04/07/24 04/07/24 04/05/24 History Physical Exam Vital Signs: Vital Signs: Last Vital Signs Temp 96.8 F 04/09/24 07:13 Pulse 97 04/09/24 07:13 Resp 18 04/09/24 07:13 BP 134/77 04/09/24 07:13 Pulse Ox 92 04/09/24 07:13 O2 Del Method Room Air 04/09/24 07:13 BMI result Body Mass Index 48.8 Const: General: cooperative, healthy appearing, comfortable and no acute distress Orientation/consciousness: patient oriented x3 HEENT: Face and sinus: Yes normal facial exam Mouth: moist mucous membranes Neck: Neck: Yes normal visual inspection, Yes full ROM and Yes trachea midline Chest: Chest palpation & inspection: normal inspection of the chest Resp: Effort & Inspection: normal respiratory effort, able to speak in complete sentences and no respiratory distress GI: Inspection: Yes normal to inspection Back/Spine/Pelvis: Cervical Spine: normal cervical lordosis Thoracic/Lumbar Spine: thoracic and lumbar spine normal to inspection Skin: General skin exam: no rashes or lesions noted Neuro: General: patient oriented x3, tone normal and moves all extremities Extrem: General: Yes normal to inspection and Yes capillary refill normal Results Labs 04/09/24 06:12 04/09/24 06:12 Labs: Abnormal lab results 04/08/24 04/08/24 04/08/24 Range/Units 11:27 16:29 20:08 WBC (4.8-10.8) X10*3/uL RBC (4.20-5.50) X10*6/uL Hgb (12.0-16.0) g/dl Hct (37.0-47.0) % MCV (80.0-98.0) fL MCH (27.0-33.0) pg MCHC (31.0-35.0) g/dl Plt Count (160-400) X10*3/uL MPV (9.4-12.3) fL Sodium (135-145) mmol/L POC Glucose 202 H 223 H 251 H (60-115) mg/dL Random Glucose (60-115) mg/dL Calcium (8.4-10.2) mg/dL 04/09/24 04/09/24 Range/Units 06:12 07:17 WBC 16.0 H (4.8-10.8) X10*3/uL RBC 4.18 L (4.20-5.50) X10*6/uL Hgb 9.8 L (12.0-16.0) g/dl Hct 32.1 L (37.0-47.0) % MCV 76.8 L (80.0-98.0) fL MCH 23.4 L (27.0-33.0) pg MCHC 30.5 L (31.0-35.0) g/dl Plt Count 572 H (160-400) X10*3/uL MPV 9.0 L (9.4-12.3) fL Sodium 134 L (135-145) mmol/L POC Glucose 205 H (60-115) mg/dL Random Glucose 212 H (60-115) mg/dL Calcium 8.0 L (8.4-10.2) mg/dL Short CBC 04/09/24 Range/Units 06:12 WBC 16.0 H (4.8-10.8) X10*3/uL Hgb 9.8 L (12.0-16.0) g/dl Hct 32.1 L (37.0-47.0) % Plt Count 572 H (160-400) X10*3/uL BMP 04/09/24 06:12 Sodium 134 L Potassium 3.5 Chloride 97 Carbon Dioxide 26 BUN 10 Creatinine 1.18 Calcium 8.0 L Urine 04/06/24 Range/Units 16:49 Urine Color Yellow Urine Appearance Cloudy Urine pH 5.5 (5.0-9.0) Ur Specific [place] 1.020 (1.005-1.025) Urine Protein 100 (2+) H (Neg-Trace) mg/dL Urine Glucose (UA) Negative (Negative) mg/dL All other labs normal. Assessment and Plan (1) Perinephric hematoma: Status: Acute Plan Supportive care Tranexamic acid Procedures Date of Service Date of Service: 04/09/24
[2024-04-09 11:16] LABS: Glucose, Whole Blood 266 mg/dL (60-115)
--- NOTE | 2024-04-09 12:45 | HO.PM.IMPN ---
Subjective Subjective Date of Service: 04/09/24 Interval History: Seen and evaluated this morning pain has improved a little kidney function recovering to baseline CTA did not show any active bleeding but large hematoma Review of Systems Review of Systems: Yes all other systems are reviewed and are negative Physical Exam Vital Signs: Vital Signs: Last Vital Signs Temp 96.8 F 04/09/24 07:13 Pulse 97 04/09/24 07:13 Resp 18 04/09/24 07:13 BP 134/77 04/09/24 07:13 Pulse Ox 92 04/09/24 07:13 O2 Del Method Room Air 04/09/24 07:13 BMI result Body Mass Index 48.8 Const: Other: Constitutional : Awake, interactive, obese, not in distress Neck : Normal inspection, Supple Cardiovascular : RRR, no JVP, no lower extremity edema Respiratory : good bilateral air entry, no crackles, wheezes or rhonchi Gastrointestinal: soft, lax, Normal bowel sounds, Non tender Skin : Warm, Dry Neurological : Alert & oriented x3, No focal deficit Objective Data Active Medications Acetaminophen (Acetaminophen 325 Mg Tablet) 650 mg PO Q6H PRN PRN Reason: Fever, Headache, Pain 1-3 Albuterol Sulfate (Albuterol Sulfate 90 Mcg 8 Gm Inhaler) 2 puff INHALE Q6H PRN PRN Reason: Shortness Of Breath Or Wheezing Last Admin: 04/08/24 19:20 Dose: 2 puff Documented By: MELIDA Calcium Carbonate (Calcium Carbonate 750 Mg Tab.Chew) 750 mg PO Q6H PRN PRN Reason: Heartburn Fluticasone/Vilanterol (Fluticasone/Vilanterol 200/25 Blst.W.Dev) 1 puff INHALE RDAILY [facility] Last Admin: 04/09/24 08:15 Dose: Not Given Documented By: KYLEE Non-Admin Reason: Med Not Available Glucose (Glucose Gel 15 Gm Gel..Gram.) 15 gm PO Q15M PRN; Protocol PRN Reason: per Hypoglycemia Standing Ord. Hydromorphone HCl (Hydromorphone Hcl 1 Mg/Ml Syringe) 1 mg IVPUSH Q3H PRN; Protocol PRN Reason: Pain, Severe (Pain Scale 7-10) Last Admin: 04/08/24 11:11 Dose: 1 mg Documented By: MELIDA Dextrose (D10) 250 mls @ 750 mls/hr IV Q15M PRN; Protocol PRN Reason: per Hypoglycemia Standing Ord. Ceftriaxone Sodium 1 gm/ (Sodium Chloride) 50 mls @ 100 mls/hr IV Q24H [facility] Last Infusion: 04/09/24 10:00 Dose: Infused Documented By: MELIDA Insulin Human Lispro (Insulin Lispro 100 Unit/Ml 3 Ml Vial) 0 unit SUBCUT QIDACHS [facility]; Protocol Last Admin: 04/09/24 12:01 Dose: 6 unit Documented By: MELIDA Magnesium Hydroxide (Milk Of Magnesia 30 Ml Oral.Susp) 30 ml PO DAILY PRN PRN Reason: Constipation Meclizine HCl (Meclizine Hcl 25 Mg Tablet) 25 mg PO DAILY [facility] Last Admin: 04/09/24 09:06 Dose: 25 mg Documented By: MELIDA Melatonin (Melatonin 3 Mg Tablet) 6 mg PO BEDTIME PRN PRN Reason: Insomnia Montelukast Sodium (Montelukast Sodium 10 Mg Tablet) 10 mg PO BEDTIME [facility] Last Admin: 04/08/24 20:38 Dose: 10 mg Documented By: ADRIAN Non-Formulary Medication (Norethindrone Acetate) 5 mg PO DAILY [facility] Ondansetron HCl (Ondansetron Hcl 4 Mg/2 Ml Vial) 4 mg IVPUSH Q4H PRN PRN Reason: Nausea and Vomiting Last Admin: 04/07/24 18:46 Dose: 4 mg Documented By: SNOW Polyethylene Glycol (Polyethylene Glycol 3350 17 Gm Powd.Pack) 17 gm PO DAILY PRN PRN Reason: Constipation Sodium Chloride (0.9 % Sodium Chloride Flush 3 Ml Syringe) 3 ml IVFLUSH QSHIFT [facility] Last Admin: 04/09/24 07:56 Dose: 3 ml Documented By: MELIDA Tamsulosin HCl (Tamsulosin Hcl 0.4 Mg Capsule) 0.4 mg PO BEDTIME [facility] Last Admin: 04/08/24 20:38 Dose: 0.4 mg Documented By: ADRIAN Labs 04/09/24 06:12 04/09/24 06:12 Labs: Laboratory Results - last 24 hr 04/08/24 04/08/24 04/09/24 16:29 20:08 06:12 MCV 76.8 L MCH 23.4 L MCHC 30.5 L RDW 16.0 Plt Count 572 H MPV 9.0 L Absolute Nucleated RBC 0.000 Nucleated RBC % (auto) 0.0 Anion Gap 15 Estim Creat Clear Calc 76.0 Estimated GFR 48 POC Glucose 223 H 251 H Random Glucose 212 H Calcium 8.0 L 04/09/24 04/09/24 07:17 11:08 MCV MCH MCHC RDW Plt Count MPV Absolute Nucleated RBC Nucleated RBC % (auto) Anion Gap Estim Creat Clear Calc Estimated GFR POC Glucose 205 H 266 H Random Glucose Calcium Microbiology Microbiology Results: Microbiology 04/07/24 01:29 Blood Culture - Preliminary Blood - Venous No growth after 48 hours. 04/07/24 01:30 Blood Culture - Preliminary Blood - Venous No growth after 48 hours. 04/06/24 Unknown Urine Culture - Final Urine clean catch - Urine youssef top Assessment and Plan (1) Acute hyponatremia: Status: Acute (2) Acute kidney injury: Status: Acute (3) Hematoma of kidney: Status: Acute Plan Gabriela Fernández is a 53 years old woman with PMHx significant for nephrolithiasis and s/p hospitalization (UTI, EDUARDO, s/p ureteral stent placement on March [address] Ochoa) admitted with: # acute left flank/LLQ pain secondary to worsening subcapsular hemorrhage w/ compression of the left renal parenchyma. Unclear if this is all new bleed or if she has been Oozing to the same area since 1st presentation Dilaudid as needed. CTA did not show active bleeding, aneurysms Urology following, Tranexamic acid for now # Acute kidney injury likely 2/2 bleeding, medications and dehydration resolving Hold lisinopril dc IV fluids Monitor BMP Avoid nephrotoxic agents. # acute Hyponatremia Likely secondary to EDUARDO and dehydration Improving dc IV fluids follow BMP # Presumed urinary tract infection Ceftriaxone 1 g IV daily. Urine cultures growing Mixed bacteria # Type 2 diabetes mellitus. Hold metformin due to elevated creatinine. BG checks before meals and bedtime. Glucose control with insulin sliding scale. She uses Maunjaro but this is not available here. # Essential hypertension. Lisinopril on hold due to elevated creatinine. BP currently is normal. Continue to monitor BP. # Hyperlipidemia. Continue statin. # Asthma. Bronchodilator therapy as needed. Continue montelukast and Symbicort. # Obesity. BMI 48.7 kg/m2. Weight loss. Code status: Full DVT prophylaxis: SCDs only Patient will need hospitalization overnight for EDUARDO and left lower quadrant pain management with IV fluids and IV pain meds, respectively. Patient also will need evaluation for urology service for worsening subcapsular hemorrhage. Quality Stroke Does the patient have a stroke diagnosis?: No VTE Prior VTE?: No VTE Risk Level:: Medical - moderate - high VTE Device Contraindication: N/A - Device Ordered VTE Drug Contraindication: Treatment Not Indicated
[2024-04-09 15:25] VITALS: BP 133/62; PULSE 90; RESP 16; TEMP 36.3; O2SAT 96
[2024-04-09 16:18] LABS: Glucose, Whole Blood 195 mg/dL (60-115)
[2024-04-09] MEDS: HYDROmorphone HCl 1 MG/ML SYRINGE IVPUSH (18:18)
[2024-04-09 19:20] VITALS: BP 135/64; PULSE 107; RESP 18; TEMP 37.4; O2SAT 93
--- NOTE | 2024-04-09 19:36 | PM.EVENT ---
Event Note Date of Service: 04/09/24 Event Note: GI Consult-Full note dictated. History from patient and EMR Imp: Left renal hematoma in relation to kidney stones and attempts at interventional procedures. Most recent CT shows involvement of pancreatic tail by the fluid collection. However, I don't think think this represents any primary pancreatic pathology based on her clinical history. Rec: Observe, check lipase, further recommendations and treatment as per Urology. D/W patient. Thanks Time Spent With Patient Time: Total time managing care of this patient today ____ minutes.
[2024-04-09 20:09] LABS: Glucose, Whole Blood 236 mg/dL (60-115)
[2024-04-09] MEDS: Tamsulosin HCL 0.4 MG CAPSULE PO (22:26)
[2024-04-09] MEDS: Montelukast Sodium 10 MG TABLET PO (22:26)
[2024-04-10 04:00] VITALS: BP 135/63; PULSE 104; RESP 20; TEMP 36.2; O2SAT 91
--- NOTE | 2024-04-10 04:04 | CONS_ITS ---
DATE OF SERVICE: 04/09/2024 REASON FOR CONSULTATION: Abnormal imaging of pancreas. HISTORY OF PRESENT ILLNESS: This has been obtained from the patient and the medical record. The patient is a 53-year-old female with a history of kidney stones that have been particularly problematic over the past several months. 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 She has had stents placed. One month ago, she was found to have a left renal subcapsular hematoma and a stent was placed about 1 month ago. After that, a repeat procedure was done to remove further stones and the stent was taken out at that time. She comes into the hospital now due to some increasing pain and a CT scan shows enlargement of the left renal subcapsular hematoma. A followup CT now shows some involvement of the pancreatic tail by hematoma as well. Other than her left-sided discomfort in relation to the kidney stone and hematoma, she has no other abdominal pain in the epigastric area. She denies any back pain, nor any recent vomiting. She has had some nausea and vomiting in relation to the more severe renal pain. She has no previous history of pancreatic disease in herself nor family members. She does not use any significant amounts of alcohol. MEDICATIONS: At home included albuterol, allopurinol, citalopram, glipizide, lisinopril, meclizine, metformin, Singulair, Mounjaro, potassium, simvastatin, and tamsulosin. Medications here in the hospital include acetaminophen, albuterol, Tums, IV ceftriaxone, Dilaudid p.r.n., insulin, meclizine, melatonin, Singulair, Zofran, MiraLax, tamsulosin, and tranexamic acid. PAST MEDICAL HISTORY: Open-heart surgeries as a child for congenital heart defect, asthma, diabetes mellitus, hyperlipidemia, obesity. She denies any history of [place] or stroke. Kidney stones as above. She denies any other significant surgeries. Hypertension. Meclizine for vertigo. In vitro fertilization. 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 She denies tobacco or alcohol. She is . FAMILY HISTORY: Noncontributory. REVIEW OF SYSTEMS: CONSTITUTIONAL: She has been feeling poorly and somewhat anorectic in relation to her recent problems with kidney stones and the pain from the left renal hematoma. CARDIAC: No chest pain. PULMONARY: No coughing or hemoptysis. GI: As above. She denies any trouble with bad heartburn. No trouble swallowing. She denies any hematochezia nor melena. PHYSICAL EXAMINATION: GENERAL: The patient is a pleasant, alert, comfortable-appearing female in a recliner. SKIN: Warm and dry. Nonjaundiced. HEENT: Anicteric sclerae. CARDIAC: Normal S1, S2. ABDOMEN: Soft, nondistended, and nontender without palpable mass. Her most recent CT scan done yesterday describes the known large left subcapsular hematoma involving the left kidney, but without any sign of active bleeding or pseudoaneurysm. There was no hydronephrosis. There was evidence of a pancreatic tail intraperitoneal fluid collection consistent with a hematoma as well. A CT without any IV contrast done the day prior to that. The pancreas was described as unremarkable. White blood cell count 16.0, hemoglobin 9.8, platelets 572,000. Normal electrolytes. BUN 10, creatinine 1.2. IMPRESSION: Given the patient's clinical history, I do not think the findings regarding the hematoma in the region of the pancreatic tail is consistent with a primary pancreatic pathology. I suspect this is some intra-abdominal hematoma in relation to the hematoma seen around the left kidney. She has no symptoms to suggest pancreatitis or other pancreatic pathology at this time. At this point, I will continue with supportive care and we will check a lipase in the morning as well as a PT with INR as I do not see that having been checked at least recently. I will defer further management of the hematoma to the Urology service. At this point, given no clinical signs of pancreatitis, I do not think her diet needs to be restricted. This has been discussed with the patient. Thank you for the consultation. MD NICHOLAS Thompson/FELICIA / [id number]
[2024-04-10 06:26] LABS: INTERNATIONAL NORM RATIO 1.4 (0.9-1.1); Prothrombin Time 16.6 SEC (11.1-13.3)
[2024-04-10 06:36] LABS: Anion Gap 12 (12-20); Blood Urea Nitrogen 9 mg/dL (9-16); Carbon Dioxide 31 mmol/L (22-29); Chloride 93 mmol/L (96-108); Estimated Glomerular Filt Rate 48; Glucose Random 212 mg/dL (60-115); Lipase 46 U/L (8-78); Potassium 3.5 mmol/L (3.3-5.1); Sodium 132 mmol/L (135-145)
[2024-04-10 07:14] VITALS: BP 135/74; PULSE 106; RESP 20; TEMP 36.8; O2SAT 91
[2024-04-10 07:38] LABS: Glucose, Whole Blood 208 mg/dL (60-115)
[2024-04-10] MEDS: 0.9 % Sodium Chloride Flush 3 ML SYRINGE IVFLUSH ×3 (07:43→20:17)
[2024-04-10] MEDS: Insulin Lispro 100 UNIT/ML 3 ML VIAL SUBCUT ×4 (07:43→20:16)
[2024-04-10] MEDS: Meclizine HCl 25 MG TABLET PO (09:53)
[2024-04-10] MEDS: cefTRIAXone sodium 1 GM in 0.9 % Sodium Chloride 50 ML IV (09:53)
[2024-04-10] MEDS: Phytonadione (Vit K1) Oral 10 MG/ML AMPUL 5 MG PO (10:40)
[2024-04-10 11:15] LABS: Glucose, Whole Blood 287 mg/dL (60-115)
--- NOTE | 2024-04-10 12:49 | HO.PM.IMPN ---
Subjective Subjective Date of Service: 04/10/24 Interval History: Seen and evaluated this morning pain has improved kidney function recovered to baseline CTA did not show any active bleeding but large hematoma Hb stable Review of Systems Review of Systems: Yes all other systems are reviewed and are negative Physical Exam Vital Signs: Vital Signs: Last Vital Signs Temp 98.3 F 04/10/24 07:14 Pulse 106 H 04/10/24 07:14 Resp 20 04/10/24 07:14 BP 135/74 04/10/24 07:14 Pulse Ox 91 L 04/10/24 07:14 O2 Del Method Room Air 04/10/24 07:14 BMI result Body Mass Index 48.8 Const: Other: Constitutional : Awake, interactive, obese, not in distress Neck : Normal inspection, Supple Cardiovascular : RRR, no JVP, no lower extremity edema Respiratory : good bilateral air entry, no crackles, wheezes or rhonchi Gastrointestinal: soft, lax, Normal bowel sounds, Non tender Skin : Warm, Dry Neurological : Alert & oriented x3, No focal deficit Objective Data Active Medications Acetaminophen (Acetaminophen 325 Mg Tablet) 650 mg PO Q6H PRN PRN Reason: Fever, Headache, Pain 1-3 Albuterol Sulfate (Albuterol Sulfate 90 Mcg 8 Gm Inhaler) 2 puff INHALE Q6H PRN PRN Reason: Shortness Of Breath Or Wheezing Last Admin: 04/08/24 19:20 Dose: 2 puff Documented By: MELIDA Calcium Carbonate (Calcium Carbonate 750 Mg Tab.Chew) 750 mg PO Q6H PRN PRN Reason: Heartburn Fluticasone/Vilanterol (Fluticasone/Vilanterol 200/25 Blst.W.Dev) 1 puff INHALE RDAILY [facility] Last Admin: 04/10/24 07:28 Dose: Not Given Documented By: KYLEE Non-Admin Reason: Med Not Available Glucose (Glucose Gel 15 Gm Gel..Gram.) 15 gm PO Q15M PRN; Protocol PRN Reason: per Hypoglycemia Standing Ord. Hydromorphone HCl (Hydromorphone Hcl 1 Mg/Ml Syringe) 1 mg IVPUSH Q3H PRN; Protocol PRN Reason: Pain, Severe (Pain Scale 7-10) Last Admin: 04/09/24 18:18 Dose: 1 mg Documented By: MELIDA Dextrose (D10) 250 mls @ 750 mls/hr IV Q15M PRN; Protocol PRN Reason: per Hypoglycemia Standing Ord. Ceftriaxone Sodium 1 gm/ (Sodium Chloride) 50 mls @ 100 mls/hr IV Q24H [facility] Last Infusion: 04/10/24 10:42 Dose: Infused Documented By: MELIDA Insulin Human Lispro (Insulin Lispro 100 Unit/Ml 3 Ml Vial) 0 unit SUBCUT QIDACHS [facility]; Protocol Last Admin: 04/10/24 11:25 Dose: 6 unit Documented By: MELIDA Magnesium Hydroxide (Milk Of Magnesia 30 Ml Oral.Susp) 30 ml PO DAILY PRN PRN Reason: Constipation Meclizine HCl (Meclizine Hcl 25 Mg Tablet) 25 mg PO DAILY [facility] Last Admin: 04/10/24 09:53 Dose: 25 mg Documented By: MELIDA Melatonin (Melatonin 3 Mg Tablet) 6 mg PO BEDTIME PRN PRN Reason: Insomnia Montelukast Sodium (Montelukast Sodium 10 Mg Tablet) 10 mg PO BEDTIME [facility] Last Admin: 04/09/24 22:26 Dose: 10 mg Documented By: DAVID Non-Formulary Medication (Norethindrone Acetate) 5 mg PO DAILY [facility] Ondansetron HCl (Ondansetron Hcl 4 Mg/2 Ml Vial) 4 mg IVPUSH Q4H PRN PRN Reason: Nausea and Vomiting Last Admin: 04/07/24 18:46 Dose: 4 mg Documented By: SNOW Polyethylene Glycol (Polyethylene Glycol 3350 17 Gm Powd.Pack) 17 gm PO DAILY PRN PRN Reason: Constipation Sodium Chloride (0.9 % Sodium Chloride Flush 3 Ml Syringe) 3 ml IVFLUSH QSHIFT [facility] Last Admin: 04/10/24 07:43 Dose: 3 ml Documented By: MELIDA Tamsulosin HCl (Tamsulosin Hcl 0.4 Mg Capsule) 0.4 mg PO BEDTIME [facility] Last Admin: 04/09/24 22:26 Dose: 0.4 mg Documented By: DAVID Labs 04/09/24 06:12 04/10/24 06:05 Labs: Laboratory Results - last 24 hr 04/09/24 04/09/24 04/10/24 16:15 19:58 06:05 Hold Purple Top SEE NOTE PT 16.6 H INR 1.4 H Anion Gap 12 Estim Creat Clear Calc 76.0 Estimated GFR 48 POC Glucose 195 H 236 H Random Glucose 212 H Calcium 8.0 L Lipase 46 Vitamin K1 Cancelled 04/10/24 04/10/24 07:20 11:04 Hold Purple Top PT INR Anion Gap Estim Creat Clear Calc Estimated GFR POC Glucose 208 H 287 H Random Glucose Calcium Lipase Vitamin K1 Assessment and Plan (1) Acute hyponatremia: Status: Acute (2) Acute kidney injury: Status: Acute (3) Hematoma of kidney: Status: Acute (4) Acute UTI: Status: Inactive Plan Gabriela Fernández is a 53 years old woman with PMHx significant for nephrolithiasis and s/p hospitalization (UTI, EDUARDO, s/p ureteral stent placement on March [address] Ochoa) admitted with: # acute left flank/LLQ pain secondary to worsening subcapsular hemorrhage w/ compression of the left renal parenchyma. Unclear if this is all new bleed or if she has been Oozing to the same area since 1st presentation. The patient is concerned about recurrence of bleeding in future Dilaudid as needed. CTA did not show active bleeding, aneurysms but large hematoma INR 1.3 check Vit K level, give Vit K dose Urology following, Tranexamic acid IV inpt and send out on small dose Tranexamic acid with a plan to follow as outpatient along with PO Abx # Acute kidney injury likely 2/2 bleeding, medications and dehydration resolving, Cr 1,2 Hold lisinopril dc IV fluids Monitor BMP Avoid nephrotoxic agents. # acute Hyponatremia Likely secondary to EDUARDO and dehydration Improved to 132-133 dc IV fluids follow BMP # Presumed urinary tract infection Ceftriaxone 1 g IV daily. Urine cultures growing Mixed bacteria Urology rec continue Abx on discharge. # Type 2 diabetes mellitus. Hold metformin due to elevated creatinine. BG checks before meals and bedtime. Glucose control with insulin sliding scale. She uses Maunjaro but this is not available here. # Essential hypertension. Lisinopril on hold due to elevated creatinine. BP currently is normal. Continue to monitor BP. # Hyperlipidemia. Continue statin. # Asthma. Bronchodilator therapy as needed. Continue montelukast and Symbicort. # Obesity. BMI 48.7 kg/m2. Weight loss. Code status: Full DVT prophylaxis: SCDs only Patient will need hospitalization overnight for EDUARDO and left lower quadrant pain management with IV fluids and IV pain meds, respectively. Patient also will need evaluation for urology service for worsening subcapsular hemorrhage. Quality Stroke Does the patient have a stroke diagnosis?: No VTE Prior VTE?: No VTE Risk Level:: Medical - moderate - high VTE Device Contraindication: N/A - Device Ordered VTE Drug Contraindication: Treatment Not Indicated
[2024-04-10 15:17] VITALS: BP 148/79; PULSE 98; RESP 18; TEMP 36.9; O2SAT 95
[2024-04-10 16:17] LABS: Glucose, Whole Blood 205 mg/dL (60-115)
[2024-04-10 20:00] VITALS: BP 140/72; PULSE 99; RESP 16; TEMP 36.4; O2SAT 97
[2024-04-10 20:10] LABS: Glucose, Whole Blood 268 mg/dL (60-115)
[2024-04-10] MEDS: Montelukast Sodium 10 MG TABLET PO (20:16)
[2024-04-10] MEDS: Tamsulosin HCL 0.4 MG CAPSULE PO (20:16)
[2024-04-11 03:11] VITALS: BP 145/86; PULSE 100; RESP 18; TEMP 36.2; O2SAT 98
[2024-04-11] MEDS: Acetaminophen 325 MG TABLET 650 MG PO (04:44)
[2024-04-11 05:54] LABS: Hematocrit 30.5 % (37.0-47.0); Hemoglobin 9.3 g/dl (12.0-16.0); Mean Corpuscular HGB Conc 30.5 g/dl (31.0-35.0); Mean Corpuscular Hemoglobin 22.7 pg (27.0-33.0); Mean Corpuscular Volume 74.6 fL (80.0-98.0); Mean Platelet Volume 8.8 fL (9.4-12.3); Platelet Count 535 X10*3/uL (160-400); Red Blood Count 4.09 X10*6/uL (4.20-5.50); Red Cell Distribution Width 16.1 % (11.0-16.0); White Blood Count 12.6 X10*3/uL (4.8-10.8)
[2024-04-11 06:03] LABS: INTERNATIONAL NORM RATIO 1.3 (0.9-1.1); Prothrombin Time 15.8 SEC (11.1-13.3)
[2024-04-11 06:14] LABS: Anion Gap 15 (12-20); Blood Urea Nitrogen 8 mg/dL (9-16); Calcium 8.1 mg/dL (8.4-10.2); Carbon Dioxide 28 mmol/L (22-29); Chloride 92 mmol/L (96-108); Creatinine Clr Calc Pharmacy 78.7; Estimated Glomerular Filt Rate 50; Glucose Random 224 mg/dL (60-115); Potassium 3.4 mmol/L (3.3-5.1); Sodium 132 mmol/L (135-145)
[2024-04-11 07:25] LABS: Glucose, Whole Blood 211 mg/dL (60-115)
[2024-04-11 07:45] VITALS: BP 124/70; PULSE 76; RESP 18; TEMP 36.4; O2SAT 97
[2024-04-11] MEDS: Meclizine HCl 25 MG TABLET PO (07:51)
[2024-04-11] MEDS: cefTRIAXone sodium 1 GM in 0.9 % Sodium Chloride 50 ML IV (07:51)
[2024-04-11] MEDS: Insulin Lispro 100 UNIT/ML 3 ML VIAL SUBCUT (07:52)
[2024-04-11] MEDS: 0.9 % Sodium Chloride Flush 3 ML SYRINGE IVFLUSH (07:53)
[2024-04-11] MEDS: Fluticasone/Vilanterol 200/25 BLST.W.DEV 1 PUFF INHALE (08:05)
[2024-04-11 08:06] VITALS: PULSE 94; RESP 16; O2SAT 98
--- NOTE | 2024-04-11 09:50 | PM.DS ---
DS: Providers Provider Date of Service: 04/11/24 Date of admission: 04/07/24 03:55 Primary care physician: Unknown Physician Consults: 04/07/24 03:57 Consult to Urology Routine Consulting Provider: Dangelo Bonilla Reason for consultation: EDUARDO, right kidney hematoma Has provider been notified: Yes 04/09/24 08:11 Consult to Gastroenterology Routine Consulting Provider: Jarrett London Reason for consultation: Pancreatic tail fluid collection Hematoma ? Multiple hematomas DS: Diagnosis Discharge Diagnosis (1) Acute hyponatremia: Status: Acute (2) Acute kidney injury: Status: Acute (3) Hematoma of kidney: Status: Acute (4) Acute UTI: Status: Inactive (5) Lt flank pain: Status: Acute DS: Summary Hospital Course Hospital Course: Admission note HPI Gabriela Fernández is a 53 years old woman with past medical history significant for nephrolithiasis, s/p hospitalization (UTI, EDUARDO, s/p ureteral stent placement on March [address] Ochoa), left subcapsular hemorrhage, type 2 diabetes mellitus, obesity, essential hypertension, asthma and hyperlipidemia presents to the emergency department complaining of worsening left lower quadrant and left flank pain that has been getting worse over the last 2 weeks associated with nausea and vomiting. Denies acute urinary changes, fevers, chills or diarrhea. Patient did not report any acute cardiopulmonary symptoms. In the ED. she was found to have mild tachycardia. There is no fever or hypotension. Blood workup was remarkable for leukocytosis of 15.8. Hemoglobin is at baseline. Platelets are elevated. Corrected sodium is 132. Creatinine is 1.72 (it was normal 1 month ago). LFTs are essentially normal except for slight elevation of alk-phos. Urinalysis shows microscopic hematuria and findings suggestive UTI. Abdomen pelvis CT scan showed significant increase in size in the left subcapsular hemorrhage now with compression of the left renal parenchyma, left-sided stent in place without hydronephrosis. ED tx: NS 2 L bolus, levofloxacin 500 mg IV, morphine 4 mg IV Hospital course # acute left flank/LLQ pain secondary to worsening subcapsular hemorrhage w/ compression of the left renal parenchyma complicated with acute kidney injury. It is unclear if this is all new bleed or if she has been Oozing to the same area since 1st presentation. with CTA did not show active bleeding, aneurysms but large hematoma recognised with associated pancreatic tail hematoma. Evaluated by Dr Bonilla from urology who recommended Tranexamic acid IV inpt and send out on small dose Tranexamic acid for 1 week with a plan to follow as outpatient along with PO Abx. To use Tylenol only for pain control and avoid NSAIDs. To follow with Urology as outpatient and repeat images. # Acute kidney injury Improved back to baseline with IV fluids and holding Lisinopril. to follow BMP outpatient. # acute Hyponatremia Likely secondary to EDUARDO and dehydration. Improved to 132-133. follow BMP in 1 week # Presumed urinary tract infection with mixed bacteria in urine. treated with Ceftriaxone 1 g IV daily. and will be discharged on 5 more days of Abx per Urology recommendations # Found to have iron deficiency anemia with low iron stores. Hemoglobin mildly dropped during the hospital stay but remains 9-10. to be started on Iron supplement as outpatient and follow CBC in 1 week. Discharge plan Continue Ceftin as prescribed Continue Tranexamic acid for 1 week Use Tylenol for pain control Follow with dr Bonilla outpatient as scheduled Come back to the hospital for any worsening pain, shortness of breath or Fatigue Time Attestation Discharge Coordination Time (in mins): 39 Quality: Safe Use of Opioids Does Pt have an Active Cancer Diagnosis on the Problem List?: No Quality: Stroke Does the patient have a stroke diagnosis?: No Physical Exam Vital Signs: Vital Signs: Last Vital Signs Temp 97.6 F 04/11/24 07:45 Pulse 94 04/11/24 08:06 Resp 16 04/11/24 08:06 BP 124/70 04/11/24 07:45 Pulse Ox 97 04/11/24 07:45 O2 Del Method Room Air 04/11/24 07:45 BMI result Body Mass Index 48.8 Const: Other: Constitutional : Awake, interactive, obese, not in distress Neck : Normal inspection, Supple Cardiovascular : RRR, no JVP, no lower extremity edema Respiratory : good bilateral air entry, no crackles, wheezes or rhonchi Gastrointestinal: soft, lax, Normal bowel sounds, Non tender Skin : Warm, Dry Neurological : Alert & oriented x3, No focal deficit DS: Data Data Completed and Pending Completed studies during hospitalization [Text1]: Procedures Dilation of Left Ureter with Intraluminal Device, Via Natural or Artificial Opening Endoscopic (03/02/24) Fluoroscopy of Left Kidney, Ureter and Bladder (03/02/24) Labs on day of discharge: Laboratory Results - last 24 hr 04/10/24 04/10/24 04/10/24 11:04 16:13 20:06 WBC RBC Hgb Hct MCV MCH MCHC RDW Plt Count MPV Absolute Nucleated RBC Nucleated RBC % (auto) PT INR Sodium Potassium Chloride Carbon Dioxide Anion Gap BUN Creatinine Estim Creat Clear Calc Estimated GFR POC Glucose 287 H 205 H 268 H Random Glucose Calcium 04/11/24 04/11/24 05:20 07:12 WBC 12.6 H RBC 4.09 L Hgb 9.3 L Hct 30.5 L MCV 74.6 L MCH 22.7 L MCHC 30.5 L RDW 16.1 H Plt Count 535 H MPV 8.8 L Absolute Nucleated RBC 0.000 Nucleated RBC % (auto) 0.0 PT 15.8 H INR 1.3 H Sodium 132 L Potassium 3.4 Chloride 92 L Carbon Dioxide 28 Anion Gap 15 BUN 8 L Creatinine 1.14 Estim Creat Clear Calc 78.7 Estimated GFR 50 POC Glucose 211 H Random Glucose 224 H Calcium 8.1 L Preliminary micro results at discharge 04/07/24 01:29 Blood Culture - Preliminary Blood - Venous No growth after 48 hours. 04/07/24 01:30 Blood Culture - Preliminary Blood - Venous No growth after [address] scan - abdomen: Radiologist's impression: ITS Impressions Abdomen/Pelvis CT 04/07/24 00:59 IMPRESSION: 1. Significant increase in size in the left subcapsular hemorrhage now with compression of the left renal parenchyma. 2. Left-sided stent in place. No hydronephrosis. 3. Stable right renal cyst. Fleischner guidelines were followed. Abdomen CTA 04/08/24 14:23 IMPRESSION: 1. Large left subcapsular renal hematoma measuring 12.8 x 9.8 x 14.6 cm without active extravasation or pseudoaneurysm. 2. Intraperitoneal fluid collection near the pancreatic tail measuring 8 x 4.4 x 3.4 cm. When compared to prior noncontrast CT study performed 04/07/2024, the size of this is unchanged. Fleischner guidelines were followed. Discharge Plan Discharge Anticipated Discharge Date/Time: 04/11/24 09:45 Patient Disposition: Home, Self-Care Discharge Diagnosis: Subcapsular left kidney hematoma acute kidney injury Referrals: Physician,Unknown J [Primary Care Provider] - 1 Week Discharge Medications: New tranexamic acid 650 mg tablet 650 mg PO Q12H Qty: 14 0RF cefuroxime axetil 500 mg tablet 500 mg PO BID Qty: 10 0RF ferrous sulfate 324 mg (65 mg iron) tablet,delayed release (DR/EC) 324 mg PO BID Qty: 60 0RF Continued Mounjaro 7.5 mg/0.5 mL pen injector 7.5 mg subcut SA@0900 tamsulosin 0.4 mg capsule 0.4 mg PO BEDTIME glipizide 5 mg tablet extended release 24hr 5 mg PO DAILY budesonide-formoterol [Symbicort] 160-4.5 mcg/actuation HFA aerosol inhaler 2 puff inhalation BID albuterol sulfate [Ventolin HFA] 90 mcg/actuation HFA aerosol inhaler 2 puff inhalation Q6H PRN (Reason: Shortness Of Breath Or Wheezing) metformin 1,000 mg tablet 1,000 mg PO BID meclizine 25 mg tablet 25 mg PO DAILY montelukast 10 mg tablet 10 mg PO BEDTIME citalopram 40 mg tablet 40 mg PO DAILY norethindrone acetate 5 mg tablet 5 mg PO DAILY simvastatin 40 mg tablet 40 mg PO BEDTIME lisinopril 20 mg tablet 20 mg PO DAILY allopurinol 100 mg tablet 100 mg PO DAILY 90 Days Qty: 90 1RF potassium citrate 10 mEq (1,080 mg) tablet extended release 20 meq PO BID 90 Days Qty: 360 1RF Discharge Orders: Discharge Order (Routine); Ordered 04/11/24 Ordered By: Sunday Hagan Diet: Advance to usual diet Activity on Discharge: As tolerated Stand Alone Forms: Patient Portal Discharge page, Work/School Release Print Language: Liberian Other Ambulatory Orders: Basic Metabolic Panel (Routine) Timeframe: 1 Week Facility: [facility] - Location: Laboratory Ordered By: Sunday Hagan Complete Blood Count Auto Diff (Routine) Timeframe: 1 Week Facility: [facility] - Location: Laboratory Ordered By: Sunday Hagan Care Plan Goals: Read below Health Concerns: Read below Plan of Treatment: Read below Assessment: Continue Ceftin as prescribed Continue Tranexamic acid for 1 week Use Tylenol for pain control Follow with dr Bonilla outpatient as scheduled Repeat CBC and kidney function next week, follow results with PCP Come back to the hospital for any worsening pain, shortness of breath or Fatigue Discharge Date/Time: 04/11/24 11:36
[2024-04-11 10:12] LABS: Iron 7 mcg/dL (30-160); Percent Iron Saturation 5 % (15-50); Total Iron Binding Capacity 138 mcg/dL (228-428); Unsaturated Iron Binding 131 ug/dL
--- NOTE | 2024-04-11 10:32 | MHC.CM.PN ---
EMR reviewed. Patient medically cleared for dc home self care. Spouse will provide transportation ~11am. RN aware.
[2024-04-11 11:09] LABS: Glucose, Whole Blood 346 mg/dL (60-115)
--- NOTE | 2024-04-11 11:54 | P.CDIM_ITS ---
PROVIDER RESPONSE TEXT: To clarify, the appropriate diagnosis supported by the clinical indicators: Severe or Morbid Obesity Without alveolar hypoventilation QUERY TEXT: PHYSICIAN'S DOCUMENTATION REQUEST Date of Query: 04/08/2024 12:04 PM EDT Patient Name: Gabriela Fernández Admit Date: 04/07/2024 Dear Sunday Hagan, A review of the medical record indicates additional documentation may be needed. Please review below and update the documentation accordingly. Clinical Indicators: Height: ( ) 5'5 Weight: ( ) 133 kg BMI: ( ) 48.7 Other Clinical Notes Supporting Significance of the BMI: Per Nutritional Risk Assessment 04/08/24: on therapeutic diet If possible, please provide an associated diagnosis related to the abnormal BMI, such as: Overweight Obesity Due to excess calories Obesity Drug induced Obesity Due to other cause Specify the other cause Severe or Morbid Obesity With alveolar hypoventilation Severe or Morbid Obesity Without alveolar hypoventilation BMI is not significant Other (explain) Clinically unable to determine (explain) Thank you, Rebecca Godfrey RN Use of terms such as suspected, likely, concern for, or probable (associated with a specific diagnosi s that is being evaluated, monitored, or treated as if it exists) are acceptable and can be coded in the inpatient se tting, when documented at the time of discharge. Please use your independent medical judgment in providing your response. THIS QUERY IS PART OF THE PERMANENT MEDICAL RECORD
[2024-04-14 18:58] LABS: Vitamin K1 180 pg/mL (130-1500)
== END 2024-04-11 11:36 | disposition home or self-care (01) | DRG 469 ==
LOC: HO.ED 04-07 02:25 → HO.EDOVER 04-07 03:58 → HO.S3 04-07 19:32
PROVIDERS: Internal Medicine; Registered Nurse Emergency; Admitting Provider Internal Medicine; Emergency Provider Emergency Medicine; PCP Internal Medicine; Visit Provider Student in an Organized Health Care Education/Training Program
DX: N17.9 Acute kidney failure, unspecified (principal); E87.1 Hypo-osmolality and hyponatremia; E11.22 Type 2 diabetes mellitus with diabetic chronic kidney disease; N39.0 Urinary tract infection, site not specified; N28.89 Other specified disorders of kidney and ureter; J45.909 Unspecified asthma, uncomplicated; E86.0 Dehydration; E66.01 Morbid (severe) obesity due to excess calories; Z68.42 Body mass index [BMI] 45.0-49.9, adult; E78.2 Mixed hyperlipidemia; Z79.84 Long term (current) use of oral hypoglycemic drugs; Z79.899 Other long term (current) drug therapy
CPT/HCPCS: 36415; 74175; 74176; 80048; 80053; 81001; 81003; 82947; 83540; 83605; 83690; 84597; 84702; 85025; 85027; 85610; 87040; 87086; 94640; 99285; J0696; J1170; J1956; J2270; J2405; Q9967

== ENCOUNTER → 2024-04-07 03:55 | Outpatient (BNV) | payer OTHER, SELFPAY | PROVIDERS: Admitting Provider Internal Medicine; Emergency Provider Emergency Medicine; Visit Provider Urology | DX: S37.019A Minor contusion of unspecified kidney, initial encounter (principal) | CPT/HCPCS: 99222 ==

== ENCOUNTER → 2024-04-07 03:55 | Outpatient (BNV) | payer OTHER, SELFPAY | PROVIDERS: Admitting Provider Internal Medicine; Emergency Provider Emergency Medicine; Visit Provider Internal Medicine | DX: E87.1 Hypo-osmolality and hyponatremia (principal); N17.9 Acute kidney failure, unspecified; S37.012D Minor contusion of left kidney, subsequent encounter; N39.0 Urinary tract infection, site not specified; R10.9 Unspecified abdominal pain | CPT/HCPCS: 99223; 99232; 99233; 99239; 99499 ==

== ENCOUNTER 2024-04-19 03:14 | Emergency (ER) | payer OTHER, SELFPAY ==
[2024-04-19] VITALS (7 sets, daily range): BP systolic 119–145; BP diastolic 69–86; PULSE 78–103; RESP 14–20; TEMP 36.4–36.8; O2SAT 94–98; BMI 47.0
--- NOTE | ~2024-04-19 | CT_ITS ---
EXAMINATION: CT ABDOMEN AND PELVIS WITHOUT CONTRAST CLINICAL INFORMATION: Left flank pain COMPARISON: Multiple priors, most recent 04/08/2024 TECHNIQUE: Multidetector volumetric imaging was performed from the superior aspect of the liver through the pubic symphysis. Sagittal and coronal reformatted images were obtained on the technologist's workstation. This CT examination was performed using dose optimization techniques as appropriate, variously including the following: *Automated exposure control *Adjustment of mA and/or kV according to patient size (this includes techniques or standardized protocols for targeted exams where dose is matched to indication/reason for exam; i.e. extremities or head) *Use of iterative reconstruction technique DLP: 1074 mGy-cm FINDINGS: LUNG BASES: The visualized lung bases are unremarkable. LIVER, GALLBLADDER, AND BILIARY TREE: The liver is normal in size, shape, and attenuation. No focal hepatic lesion or biliary ductal dilatation is identified on this noncontrast exam. The gallbladder is unremarkable with no evidence of radiopaque gallstones, gallbladder wall thickening, or obvious pericholecystic inflammatory changes. PANCREAS: Parenchyma appears grossly unremarkable. Fluid collection adjacent to the pancreatic tail as described below. SPLEEN: Unremarkable. ADRENAL GLANDS: Unremarkable. KIDNEYS AND URETERS: Limited evaluation in the absence of intravenous contrast. There is a subcapsular collection along the lateral margin of the left kidney measuring up to approximately 13.4 x 10.7 cm on image 49/106, previously 13.1 x 10.0 cm when measured in similar fashion. Anteriorly this measures approximately -4 Hounsfield units, versus 22 Hounsfield units previously. There is also an enlarging collection superior to the left kidney adjacent to the pancreatic tail, measuring approximately 11.3 x 8.9 cm and -9 Hounsfield units currently versus 7.9 x 4.8 cm and 16 Hounsfield units previously. Surrounding stranding is present. A left ureteral stent is present extending from the renal pelvis to the bladder. No significant hydronephrosis. Multiple calcifications are present in the left renal pelvis and calyces, with largest fragment in the pelvis suspected to measure up to approximately 1.3 cm. No right-sided hydronephrosis or calculus. Small right upper pole renal cyst; no follow-up recommended. BLADDER: Mildly distended. Left ureteral stent terminates in the bladder. GASTROINTESTINAL TRACT: No evidence of bowel obstruction or significant wall thickening. The appendix is unremarkable. No free air is seen. ABDOMINAL WALL: No significant hernia is appreciated. LYMPH NODES: Scattered mesenteric and retroperitoneal subcentimeter lymph nodes are present, without significant enlargement by size criteria. VASCULAR: Unremarkable. PELVIC VISCERA: Grossly unremarkable. OSSEOUS STRUCTURES: Degenerative changes of the lower thoracic spine. CT/CT abdomen pelvis wo IV con IMPRESSION: 1. Limited evaluation of renal parenchyma in the absence of intravenous contrast. Large subcapsular collection/evolving hematoma along the lateral margin of the left kidney appears similar to possibly minimally increased in size to 04/08/2024. However, an additional collection superior to the left kidney adjacent to the pancreatic tail has increased in size compared to prior, measuring up to 11.3 cm in greatest dimension currently versus 7.9 cm previously. This may also represent an evolving hematoma, as internal density is similar to the renal subcapsular collection. In the proper clinical setting, a pancreatic pseudocyst could have a similar appearance. 2. Left ureteral stent in place, without hydronephrosis. Multiple calcifications in the left renal pelvis and calyces, with largest fragment in the pelvis measuring up to 1.3 cm.
--- NOTE | ~2024-04-19 | XR_ITS ---
EXAMINATION: XR CHEST CLINICAL INFORMATION: Left-sided chest pain and difficulty breathing COMPARISON: 03/03/2024 TECHNIQUE: Frontal view of the chest was obtained. FINDINGS: No pneumothorax. Lungs clear. Heart and pulmonary vessels normal given AP portable technique. Sternal wires and mediastinal clips present. XR/XR chest 1V IMPRESSION: No active disease.
[2024-04-19 03:46] LABS: Basophils Absolute Auto 0.1 X10*3/uL (0.0-0.2); Basophils Percent Auto 0.4 % (0-2); Eosinophils Absolute Auto 0.1 X10*3/uL (0.0-0.4); Eosinophils Percent Auto 0.6 % (0-4); Hematocrit 32.5 % (37.0-47.0); Hemoglobin 10.3 g/dl (12.0-16.0); Imm Gran Abs Auto 0.06 X10*3/uL (0.00-0.03); Imm Gran Pct Auto 0.4 % (0.0-0.4); Lymphocytes Absolute Auto 2.4 X10*3/uL (1.2-4.9); Lymphocytes Percent Auto 15.3 % (20-40); MANUAL DIFF FLAG NO; Mean Corpuscular HGB Conc 31.7 g/dl (31.0-35.0); Mean Corpuscular Hemoglobin 22.7 pg (27.0-33.0); Mean Corpuscular Volume 71.6 fL (80.0-98.0); Mean Platelet Volume 8.6 fL (9.4-12.3); Monocytes Absolute Auto 1.1 X10*3/uL (0.1-1.2); Monocytes Percent Auto 7.1 % (2-11); Neutrophils Absolute Auto 11.9 x10*3/uL (2.0-8.3); Neutrophils Percent Auto 76.2 % (45-73); Platelet Count 446 X10*3/uL (160-400); Red Blood Count 4.54 X10*6/uL (4.20-5.50); Red Cell Distribution Width 16.5 % (11.0-16.0); White Blood Count 15.6 X10*3/uL (4.8-10.8)
[2024-04-19 04:01] LABS: Alanine Aminotransferase 23 U/L (0-31); Albumin Level 2.7 g/dL (3.5-5.0); Alkaline Phosphatase 135 U/L (39-117); Anion Gap 15 (12-20); Aspartate Amino Transferase 23 U/L (5-31); Bilirubin Total 0.5 mg/dL (0.0-1.0); Blood Urea Nitrogen 12 mg/dL (9-16); Calcium 8.7 mg/dL (8.4-10.2); Carbon Dioxide 28 mmol/L (22-29); Chloride 89 mmol/L (96-108); Creatinine Clr Calc Pharmacy 69.6; Estimated Glomerular Filt Rate 44; Glucose Random 293 mg/dL (60-115); Lipase 66 U/L (8-78); Potassium 4.3 mmol/L (3.3-5.1); Sodium 128 mmol/L (135-145); Total Protein 7.3 g/dL (6.5-8.0)
--- NOTE | 2024-04-19 04:11 | ED_ITS ---
HPI - Female Genitourinary General Chief complaint: Urogenital-Female Stated complaint: Kidney pain Time Seen by Provider: 04/19/24 04:11 History of Present Illness HPI Narrative: The patient is a 53-year-old female who was hospitalized in February for pyelonephritis Related Data Home Medications ?Medication ?Instructions ?Recorded ?Confirmed albuterol sulfate 90 mcg/actuation 2 puff inhalation Q6H PRN 09/17/23 04/07/24 aerosol inhaler (Ventolin HFA) Shortness Of Breath Or Wheezing budesonide-formoterol HFA 160 2 puff inhalation BID 09/17/23 04/07/24 mcg-4.5 mcg/actuation aerosol inhaler (Symbicort) citalopram 40 mg tablet 40 mg PO DAILY 09/17/23 04/07/24 lisinopril 20 mg tablet 20 mg PO DAILY 09/17/23 04/07/24 meclizine 25 mg tablet 25 mg PO DAILY Vertigo 09/17/23 04/07/24 metformin 1,000 mg tablet 1,000 mg PO BID 09/17/23 04/07/24 montelukast 10 mg tablet 10 mg PO BEDTIME 09/17/23 04/07/24 norethindrone acetate 5 mg tablet 5 mg PO DAILY 09/17/23 04/07/24 simvastatin 40 mg tablet 40 mg PO BEDTIME 09/17/23 04/07/24 tirzepatide 7.5 mg/0.5 mL 7.5 mg subcut SA@0900 03/02/24 04/07/24 subcutaneous pen injector (Edison) glipizide 5 mg tablet, extended 5 mg PO DAILY 04/07/24 04/07/24 release 24 hr tamsulosin 0.4 mg capsule 0.4 mg PO BEDTIME 04/07/24 04/07/24 Previous Rx's ?Medication ?Instructions ?Recorded allopurinol 100 mg tablet 100 mg PO DAILY 90 days #90 tabs 03/23/24 potassium citrate 10 mEq (1,080 20 meq (2 x 10 mEq (1,080 mg)) PO 03/23/24 mg) tablet,extended release BID 90 days #360 tabs cefuroxime axetil 500 mg tablet 500 mg PO BID #10 tabs 04/11/24 ferrous sulfate 324 mg (65 mg 324 mg PO BID #60 tabs 04/11/24 iron) tablet,delayed release tranexamic acid 650 mg tablet 650 mg PO Q12H #14 tabs 04/11/24 Allergies Allergy/AdvReac Type Severity Reaction Status Date / Time sulfamethoxazole Allergy Mild Hives Verified 04/19/24 03:27 [From Bactrim] trimethoprim [From Bactrim] Allergy Unknown Anaphylaxis Verified 04/19/24 03:27 FISH Allergy Unknown Anaphylaxis Uncoded 04/06/24 16:00 PMFSH Past Medical History Medical History Asthma Benign paroxysmal positional vertigo Obesity Cataract CKD (chronic kidney disease) Depression HLD (hyperlipidemia) Diabetes HTN (hypertension) Sleep apnea History of kidney stones History of in vitro fertilization Surgical History H/O breast biopsy History of ureteroscopy Hx of ectopic History of open heart surgery Family History Family History Father Cancer Mother Epilepsia Dementia Brother Drug abuse Bipolar 1 disorder Son No problems noted. Social History Social History Household Members: Family Housing: House Do you presently have visiting nurse or other home services: No Alcohol intake: never Patient Tobacco Use Status: Never used Tobacco Smoked in Last 30 Days: No Use of substances other than those prescribed or required for medical reasons: No Advance Directives: Yes Advance Directives on File: Yes Advance Directives Date on File: 04/12/24 Do you have a plan to hurt others: No Plan Patient : No service: No Physical Exam 2 Vital Signs: Vital Signs: Last Vital Signs Temp 97.8 F 04/19/24 08:05 Pulse 88 04/19/24 08:05 Resp 20 04/19/24 08:05 BP 120/76 04/19/24 08:05 Pulse Ox 96 04/19/24 08:05 O2 Del Method Room Air 04/19/24 08:05 BMI result Body Mass Index 47.0 Const: Other: The patient is a morbidly obese 53-year-old who was awake and alert and looks uncomfortable. HEENT: Other: Face is symmetrical, mucous membranes moist Eyes: Other: Pupils are round equal, conjunctivae clear Neck: Other: The patient is moving her neck easily, no JVD Resp: Effort & Inspection: normal respiratory effort Auscultation: clear to auscultation bilaterally Cardio: Rate: regular rate Rhythm: regular rhythm Heart sounds: S1 normal heart sound present and S2 normal heart sound present GI: Other: There is left-sided abdominal tenderness. Back/Spine/Pelvis: Other: There is left-sided CVA percussion tenderness Skin: Other: Skin is pale and dry Neuro: Other: The patient is awake and alert. Cranial nerves are grossly intact. She moves her extremities symmetrically. Grossly neurologically intact. Extrem: Other: No peripheral edema Medications Administered Discontinued Medications Generic Name Dose Route Start Last Admin Trade Name Freq PRN Reason Stop Dose Admin Hydromorphone HCl 1 mg 04/19/24 04:23 04/19/24 04:50 Hydromorphone Hcl 1 Mg/Ml Syringe IVPUSH 04/19/24 04:24 1 mg ONCE ONE Administration Protocol Hydromorphone HCl 0.5 mg 04/19/24 07:43 04/19/24 08:06 Hydromorphone Hcl 0.5 Mg/0.5 Ml Syringe IVPUSH 04/19/24 07:44 0.5 mg ONCE ONE Administration Protocol Sodium Chloride 1,000 mls @ 999 mls/hr 04/19/24 04:30 04/19/24 08:07 Ns IV 04/19/24 05:30 Infused .Q1H1M NUBIA Infusion Sodium Chloride 1,000 mls @ 999 mls/hr 04/19/24 06:30 04/19/24 08:07 Ns IV 04/19/24 07:30 Infused .Q1H1M NUBIA Infusion Medical Decision Making Medical Decision Making [facility] Narrative: The patient is a 53-year-old female who was recently hospitalized for complications related to left-sided kidney stones. She has a left ureteral stent in place. She was also recently found to have a subcapsular left renal hematoma. She was discharged from the hospital 1 week ago and yesterday she finished her course of cefuroxime. Clinically the patient looks uncomfortable and seems tender on the left side. I reviewed her previous CT images and she has an impressively swollen left kidney. The patient was given hydromorphone for pain. Labs have been done that show a white count of 15.6 and a hemoglobin of 10.3. Her metabolic panel is unremarkable. CRP is very elevated at 24 but this could be an inflammatory reaction to the large hematoma and capsular distention. The patient's CT scan shows what is probably some expansion of the hematoma. The patient's urinalysis shows 1+ leukocyte esterase, negative nitrites, microscopy is pending. I will be signing the patient out to the oncoming emergency physician at change of shift. Dr. Laureano Ochoa, the on-call urologist, is aware of the patient. Lab Data 04/19/24 03:40 04/19/24 03:40 Labs: Lab Results 04/19/24 Range/Units 03:40 WBC 15.6 H (4.8-10.8) X10*3/uL RBC 4.54 (4.20-5.50) X10*6/uL Hgb 10.3 L (12.0-16.0) g/dl Hct 32.5 L (37.0-47.0) % MCV 71.6 L (80.0-98.0) fL MCH 22.7 L (27.0-33.0) pg MCHC 31.7 (31.0-35.0) g/dl RDW 16.5 H (11.0-16.0) % Plt Count 446 H (160-400) X10*3/uL MPV 8.6 L (9.4-12.3) fL Immature Gran % (Auto) 0.4 (0.0-0.4) % Neut % (Auto) 76.2 H (45-73) % Lymph % (Auto) 15.3 L (20-40) % Gladwin % (Auto) 7.1 (2-11) % Eos % (Auto) 0.6 (0-4) % Baso % (Auto) 0.4 (0-2) % Lymph # (Auto) 2.4 (1.2-4.9) X10*3/uL Gladwin # (Auto) 1.1 (0.1-1.2) X10*3/uL Eos # (Auto) 0.1 (0.0-0.4) X10*3/uL Baso # (Auto) 0.1 (0.0-0.2) X10*3/uL Abs Immat Gran (auto) 0.06 H (0.00-0.03) X10*3/uL Absolute Neuts (auto) 11.9 H (2.0-8.3) x10*3/uL Absolute Nucleated RBC 0.000 (0.0-0.012) X10*3/uL Nucleated RBC % (auto) 0.0 (0.0-0.2) /100WBC Sodium 128 L (135-145) mmol/L Potassium 4.3 D (3.3-5.1) mmol/L Chloride 89 L (96-108) mmol/L Carbon Dioxide 28 (22-29) mmol/L Anion Gap 15 (12-20) BUN 12 (9-16) mg/dL Creatinine 1.26 (0.5-1.4) mg/dL Estim Creat Clear Calc 69.6 Estimated GFR 44 Random Glucose 293 H (60-115) mg/dL Calcium 8.7 D (8.4-10.2) mg/dL Total Bilirubin 0.5 (0.0-1.0) mg/dL AST 23 (5-31) U/L ALT 23 (0-31) U/L Alkaline Phosphatase 135 H (39-117) U/L C-Reactive Protein 24.72 H (< or = 0.50) mg/dL Total Protein 7.3 (6.5-8.0) g/dL Albumin 2.7 L (3.5-5.0) g/dL Lipase 66 (8-78) U/L Discharge Plan Discharge Clinical Impression: Hematoma of left kidney Patient Disposition: Still a Patient Prescriptions: No Action Mounjaro 7.5 mg/0.5 mL pen injector 7.5 mg subcut SA@0900 tamsulosin 0.4 mg capsule 0.4 mg PO BEDTIME glipizide 5 mg tablet extended release 24hr 5 mg PO DAILY tranexamic acid 650 mg tablet 650 mg PO Q12H Qty: 14 0RF cefuroxime axetil 500 mg tablet 500 mg PO BID Qty: 10 0RF ferrous sulfate 324 mg (65 mg iron) tablet,delayed release (DR/EC) 324 mg PO BID Qty: 60 0RF budesonide-formoterol [Symbicort] 160-4.5 mcg/actuation HFA aerosol inhaler 2 puff inhalation BID albuterol sulfate [Ventolin HFA] 90 mcg/actuation HFA aerosol inhaler 2 puff inhalation Q6H PRN (Reason: Shortness Of Breath Or Wheezing) metformin 1,000 mg tablet 1,000 mg PO BID meclizine 25 mg tablet 25 mg PO DAILY montelukast 10 mg tablet 10 mg PO BEDTIME citalopram 40 mg tablet 40 mg PO DAILY norethindrone acetate 5 mg tablet 5 mg PO DAILY simvastatin 40 mg tablet 40 mg PO BEDTIME lisinopril 20 mg tablet 20 mg PO DAILY allopurinol 100 mg tablet 100 mg PO DAILY 90 Days Qty: 90 1RF potassium citrate 10 mEq (1,080 mg) tablet extended release 20 meq PO BID 90 Days Qty: 360 1RF Print Language: Persian
[2024-04-19 04:23] LABS: C Reactive Protein 24.72 mg/dL (< or = 0.50)
[2024-04-19] MEDS: HYDROmorphone HCl 1 MG/ML SYRINGE IVPUSH (04:50)
[2024-04-19] MEDS: 0.9 % Sodium Chloride 1,000 ML 999 ML IV ×2 (04:50→06:29)
[2024-04-19] MEDS: HYDROmorphone HCl 0.5 MG/0.5 ML SYRINGE IVPUSH ×2 (08:06→10:58)
--- NOTE | 2024-04-19 08:10 | PC.NURSE ---
pt is alert and oriented, skin pwd, respirations even and unlabored, pt reports left lower abd pain 7/10 that does not radiate anywhere- pain is constant and gets worse with deep inspirations, denies nausea at this time, vs stable
[2024-04-19 08:20] LABS: Appearance Urine Cloudy; Color Urine Yellow; Glucose Urine UA 100 mg/dL (Negative); Leukocyte Esterase Urine Small (1+) (Negative); Nitrite Urine Negative (Negative); PH 5.5 (5.0-9.0); UMIC TRIGGER UACC YES; Urine Blood Trace (Negative); Urine Ketones Negative (Negative); Urine Protein 100 (2+) mg/dL (Neg-Trace)
[2024-04-19 08:26] LABS: Hematocrit 29.9 % (37.0-47.0); Hemoglobin 9.3 g/dl (12.0-16.0); Mean Corpuscular HGB Conc 31.1 g/dl (31.0-35.0); Mean Corpuscular Hemoglobin 22.5 pg (27.0-33.0); Mean Corpuscular Volume 72.2 fL (80.0-98.0); Mean Platelet Volume 8.7 fL (9.4-12.3); Platelet Count 370 X10*3/uL (160-400); Red Blood Count 4.14 X10*6/uL (4.20-5.50); Red Cell Distribution Width 16.6 % (11.0-16.0); White Blood Count 14.1 X10*3/uL (4.8-10.8)
[2024-04-19 08:33] LABS: Bacteria Urine None Seen (None Seen); Hyaline Casts Urine 0-2 /LPF (0-2); RBC Urine 0-2 /HPF (0-2); UACC Culture Trigger YES; WBC Urine 0-5 /HPF (0-5)
--- NOTE | 2024-04-19 09:43 | PHA.MEDREC ---
Pharmacy Consult ? Medication Reconciliation Pharmacy has completed the medication reconciliation. Patient recently discharged on 04/11/24. Utilized claim history and discharge packet.
--- NOTE | 2024-04-19 10:47 | PC.NURSE ---
got the pt up out of bed for after a few steps pt's pain started to increase, pain at rest was a 5/10 and after few steps increased from 7/10, md christensen
== END 2024-04-19 14:22 | disposition home or self-care (01) ==
PROVIDERS: Emergency Medicine; Emergency Provider Emergency Medicine; PCP Internal Medicine
DX: S37.012A Minor contusion of left kidney, initial encounter (principal); X58.XXXA Exposure to other specified factors, initial encounter; Y93.9 Activity, unspecified; Y92.9 Unspecified place or not applicable; Y99.9 Unspecified external cause status; Z96.0 Presence of urogenital implants; I12.9 Hypertensive chronic kidney disease with stage 1 through stage 4 chronic kidney disease, or unspecified chronic kidney disease; E11.22 Type 2 diabetes mellitus with diabetic chronic kidney disease; N18.9 Chronic kidney disease, unspecified; J45.909 Unspecified asthma, uncomplicated; R07.9 Chest pain, unspecified; R10.9 Unspecified abdominal pain; R06.00 Dyspnea, unspecified; Z79.899 Other long term (current) drug therapy
CPT/HCPCS: 36415; 71045; 74176; 80053; 81001; 83690; 85025; 85027; 86140; 86850; 86900; 86901; 87086; 96361; 96374; 96376; 99284; J1170

== ENCOUNTER 2024-04-25 13:35 | Outpatient (REF) | payer OTHER, SELFPAY ==
--- NOTE | ~2024-04-25 | US_ITS ---
EXAMINATION: US RETROPERITONEAL LIMITED (RENAL ONLY) CLINICAL INFORMATION: Calculus of kidney. COMPARISON: Multiple CT scans of the abdomen and pelvis most recently 04/19/2024 TECHNIQUE: Ultrasound of the kidneys was performed FINDINGS: RIGHT KIDNEY: 13.5 x 5.0 x 6.0 cm (SAG x AP x TRV). The kidney is normal in size, contour, and echogenicity. Renal cortical thickness is normal. No calculi . No hydronephrosis. A benign upper pole 2.5 cm Bosniak class I renal cyst is noted which requires no additional imaging or follow up. No solid renal masses are seen. LEFT KIDNEY: 15.6 x 5.2 x 5.5 cm (SAG x AP x TRV). The kidney is normal in size but is compressed by a large subcapsular hematoma measuring 16.3 x 8.3 x 12.7 cm. Similar findings could be seen on the prior CT scan. In addition, there is another complex fluid collections seen in between the kidney and spleen measuring 11.0 x 9.8 x 11.0 which could also be seen on the prior CT scan. Renal cortical thickness is difficult to assess because of compression. No calculi or hydronephrosis. US/US renal BI IMPRESSION: 1. Large left subcapsular hematoma compressing the left kidney. 2. Complex fluid collection between the left kidney and spleen, probably a hematoma as well. 3. No renal calculi are seen.
== END 2024-04-25 13:36 | disposition home or self-care (01) ==
LOC: HO.HMGCX 13:35
PROVIDERS: PCP Internal Medicine; Visit Provider Urology
DX: N20.0 Calculus of kidney (principal)
CPT/HCPCS: 76775

== ENCOUNTER 2024-05-05 08:08 | Outpatient (AMB) | payer OTHER, SELFPAY ==
--- NOTE | 2024-05-05 08:10 | A.OFFVIS_ITS ---
Intake Visit Reasons: 2w follow up Intake Note: Patient presents today for a follow-up Emergency room visit 04/19/24: Meds- None Allergies to Antibiotic- No Known Allergies Blood Thinner- None Allergist Required: No Accompanied by: Self / Same As Patient Allergies sulfamethoxazole [From Bactrim] Allergy (Mild, Verified 05/05/24 08:12) Hives trimethoprim [From Bactrim] Allergy (Unknown, Verified 05/05/24 08:12) Anaphylaxis FISH Allergy (Unknown, Uncoded 05/05/24 08:12) Anaphylaxis HPI Comments Details: Gabriela is a 53-year-old female who was in the emergency room on 04/19 24 with pain. Comobidity, diabetes, morbid obesity. She has a history of left staghorn calculus. Due to the size of the staghorn calculus she had staged ureteroscopy. She is status post ureteroscopy on 12/28/2023 stent was placed at that time. She had repeat ureteroscopy on 02/08/2024 and there was residual stone. The patient presented to the emergency room on 03/02/2024 due to pain and fever CT imaging was notable for a subcapsular hematoma, a ureteral stent was placed on 03/03/2024. The patient was hospitalized again in March. CTA was performed on 04/08/24 without active extravasation or pseudoaneurysm. CT at that time also noted a 2nd hematoma. The patient was recently evaluated on 04/19/24 in the emergency room with complaints of pain. Workup was negative for infection. I have discussed with the patient that it will take several weeks for the hematomas to absorb. Follow-up renal ultrasound 04/25/2024 reviewed, Large left subcapsular hematoma compressing the left kidney, complex fluid collection between the left kidney and spleen, which was noted previously on CT imaging. I have discussed that is important to have limited strenuous activity. The patient states that she has had fatigue. I feel that it is medically indicated to have her out of work for a period of time. Will reassess in 2 weeks. Will check a Lasix renal scan andl also will review films with Interventional Radiology. [facility] Medical History (Updated 05/05/24 @ 09:57 by Justo Rodríguez MD) Hematoma of kidney Perinephric hematoma Asthma Benign paroxysmal positional vertigo Obesity Cataract CKD (chronic kidney disease) Depression HLD (hyperlipidemia) Diabetes HTN (hypertension) Sleep apnea History of kidney stones History of in vitro fertilization Surgical History H/O breast biopsy History of ureteroscopy Hx of ectopic History of open heart surgery Family History Father Cancer Mother Epilepsia Dementia Brother Drug abuse Bipolar 1 disorder Son No problems noted. Social History Household Members: Family Housing: House Do you presently have visiting nurse or other home services: No Alcohol intake: never Patient Tobacco Use Status: Never used Tobacco Advance Directives Date on File: 04/12/24 service: No Review of Systems Const All systems reviewed & are unremarkable except as noted in HPI and below Reports no additional complaints Eyes Reports no additional complaints ENT Reports no additional complaints Card Reports no additional complaints Resp Reports no additional complaints GI Reports no additional complaints Reports as per HPI Musc Reports no additional complaints Skin/Breast Reports system reviewed and no additional complaints, except as documented Neuro Reports no additional complaints Psych Reports no additional complaints Endo Reports no additional complaints Jose/Lymph Reports no additional complaints Aller/Immun Reports no additional complaints Results AMB Urinalysis, Automated UA Leukoctes 125 Lkue/uL Last Edit by CECILE Staton on 05/05/24 08:24 2+ Alberto Garrido 05/05/24 08:24 UA Nitrite Negative Last Edit by CECILE Staton on 05/05/24 08:24 UA Urobilinogen 0.2 mg/dL Last Edit by CECILE Staton on 05/05/24 08:2 4 UA Protein 30 mg/dL Last Edit by CECILE Staton on 05/05/24 08:24 1+ Alberto Garrido 05/05/24 08:24 UA pH 6.5 Last Edit by CECILE Staton on 05/05/24 08:24 UA Blood 80 Tacos/uL Last Edit by CECILE Staton on 05/05/24 08:24 UA Specific [place] 1.010 Last Edit by CECILE Staton on 05/05/24 08: 24 UA Ketone Negative Last Edit by CECILE Staton on 05/05/24 08:24 UA Bilirubin 0 mg/dL Last Edit by CECILE Staton on 05/05/24 08:24 UA Glucose 0 mg/dL Last Edit by CECILE Staton on 05/05/24 08:24 Results Reviewed Results Reviewed: Laboratory Last Values Urine pH (Auto) 6.5 05/05/24 08:22 Specific [place] (Auto) 1.010 05/05/24 08:22 Urine Protein (Auto) 30 mg/dL 05/05/24 08:22 Glucose (UA)(Auto) 0 mg/dL 05/05/24 08:22 Urine Ketones (Auto) Negative 05/05/24 08:22 Urine Blood (Auto) 80 Tacos/uL 05/05/24 08:22 Urine Nitrite (Auto) Negative 05/05/24 08:22 Urine Bilirubin (Auto) 0 mg/dL 05/05/24 08:22 Urine Urobilinogen (Auto) 0.2 mg/dL 05/05/24 08:22 Leukocyte Esterase (Auto) 125 Luke/uL 05/05/24 08:22 Date of Service: 04/25/24 EXAMINATION: US RETROPERITONEAL LIMITED (RENAL ONLY) CLINICAL INFORMATION: Calculus of kidney. COMPARISON: Multiple CT scans of the abdomen and pelvis most recently 04/19/2024 TECHNIQUE: Ultrasound of the kidneys was performed FINDINGS: RIGHT KIDNEY: 13.5 x 5.0 x 6.0 cm (SAG x AP x TRV). The kidney is normal in size, contour, and echogenicity. Renal cortical thickness is normal. No calculi . No hydronephrosis. A benign upper pole 2.5 cm Bosniak class I renal cyst is noted which requires no additional imaging or follow up. No solid renal masses are seen. LEFT KIDNEY: 15.6 x 5.2 x 5.5 cm (SAG x AP x TRV). The kidney is normal in size but is compressed by a large subcapsular hematoma measuring 16.3 x 8.3 x 12.7 cm. Similar findings could be seen on the prior CT scan. In addition, there is another complex fluid collections seen in between the kidney and spleen measuring 11.0 x 9.8 x 11.0 which could also be seen on the prior CT scan. Renal cortical thickness is difficult to assess because of compression. No calculi or hydronephrosis. IMPRESSION: 1. Large left subcapsular hematoma compressing the left kidney. 2. Complex fluid collection between the left kidney and spleen, probably a hematoma as well. 3. No renal calculi are seen. Date of Service: 04/19/24 EXAMINATION: CT ABDOMEN AND PELVIS WITHOUT CONTRAST CLINICAL INFORMATION: Left flank pain COMPARISON: Multiple priors, most recent 04/08/2024 TECHNIQUE: Multidetector volumetric imaging was performed from the superior aspect of the liver through the pubic symphysis. Sagittal and coronal reformatted images were obtained on the technologist's workstation. This CT examination was performed using dose optimization techniques as appropriate, variously including the following: *Automated exposure control *Adjustment of mA and/or kV according to patient size (this includes techniques or standardized protocols for targeted exams where dose is matched to indication/reason for exam; i.e. extremities or head) *Use of iterative reconstruction technique DLP: 1074 mGy-cm FINDINGS: LUNG BASES: The visualized lung bases are unremarkable. LIVER, GALLBLADDER, AND BILIARY TREE: The liver is normal in size, shape, and attenuation. No focal hepatic lesion or biliary ductal dilatation is identified on this noncontrast exam. The gallbladder is unremarkable with no evidence of radiopaque gallstones, gallbladder wall thickening, or obvious pericholecystic inflammatory changes. PANCREAS: Parenchyma appears grossly unremarkable. Fluid collection adjacent to the pancreatic tail as described below. SPLEEN: Unremarkable. ADRENAL GLANDS: Unremarkable. KIDNEYS AND URETERS: Limited evaluation in the absence of intravenous contrast. There is a subcapsular collection along the lateral margin of the left kidney measuring up to approximately 13.4 x 10.7 cm on image 49/106, previously 13.1 x 10.0 cm when measured in similar fashion. Anteriorly this measures approximately -4 Hounsfield units, versus 22 Hounsfield units previously. There is also an enlarging collection superior to the left kidney adjacent to the pancreatic tail, measuring approximately 11.3 x 8.9 cm and -9 Hounsfield units currently versus 7.9 x 4.8 cm and 16 Hounsfield units previously. Surrounding stranding is present. A left ureteral stent is present extending from the renal pelvis to the bladder. No significant hydronephrosis. Multiple calcifications are present in the left renal pelvis and calyces, with largest fragment in the pelvis suspected to measure up to approximately 1.3 cm. No right-sided hydronephrosis or calculus. Small right upper pole renal cyst; no follow-up recommended. BLADDER: Mildly distended. Left ureteral stent terminates in the bladder. GASTROINTESTINAL TRACT: No evidence of bowel obstruction or significant wall thickening. The appendix is unremarkable. No free air is seen. ABDOMINAL WALL: No significant hernia is appreciated. LYMPH NODES: Scattered mesenteric and retroperitoneal subcentimeter lymph nodes are present, without significant enlargement by size criteria. VASCULAR: Unremarkable. PELVIC VISCERA: Grossly unremarkable. OSSEOUS STRUCTURES: Degenerative changes of the lower thoracic spine. IMPRESSION: 1. Limited evaluation of renal parenchyma in the absence of intravenous contrast. Large subcapsular collection/evolving hematoma along the lateral margin of the left kidney appears similar to possibly minimally increased in size to 04/08/2024. However, an additional collection superior to the left kidney adjacent to the pancreatic tail has increased in size compared to prior, measuring up to 11.3 cm in greatest dimension currently versus 7.9 cm previously. This may also represent an evolving hematoma, as internal density is similar to the renal subcapsular collection. In the proper clinical setting, a pancreatic pseudocyst could have a similar appearance. 2. Left ureteral stent in place, without hydronephrosis. Multiple calcifications in the left renal pelvis and calyces, with largest fragment in the pelvis measuring up to 1.3 cm. Date of Service: 04/08/24 EXAMINATION: CT ANGIOGRAPHY ABDOMEN WITH CONTRAST CLINICAL INFORMATION: Kidney hematoma, r o ongoing bleeding, source ? COMPARISON: CT abdomen/pelvis 04/07/2024 TECHNIQUE: Initial noncontrast localizing collar closer lockstitch images were obtained. A timing bolus at the level of the celiac artery was calculated. Subsequently, arterial phase multidetector volumetric imaging was performed through the abdomen following the administration of 100 mL Omnipaque 350 intravenous contrast. No contrast reaction reported. Sagittal and coronal reformatted images were obtained on the technologist workstation. After extensive post-processing on a dedicated 3-D workstation, 3-D reformatted images were uploaded to PACS and reviewed as well. This CT examination was performed using dose optimization techniques as appropriate, variously including the following: *Automated exposure control *Adjustment of mA and/or kV according to patient size (this includes techniques or standardized protocols for targeted exams where dose is matched to indication/reason for exam; i.e. extremities or head) *Use of iterative reconstruction technique DLP: 632 mGy-cm FINDINGS: VASCULAR FINDINGS: Aorta: No aneurysm or dissection of the abdominal aorta. No penetrating atheromatous ulcer. Mesenteric Arteries: Celiac artery is patent. Superior mesenteric artery patent. Inferior mesenteric artery patent. Renal arteries: Single renal arteries bilaterally. Renal arteries are patent and without stenosis or other vascular anomaly. Iliac arteries: The common iliac arteries are patent. NONVASCULAR: Lung Bases: The visualized lung bases are clear. Liver: Homogeneous in attenuation. Normal in size. Gallbladder: Noninflamed. Biliary System: No intrahepatic or extrahepatic biliary dilation. Pancreas: Homogeneous in attenuation. Pancreatic tail collection. Spleen: Normal in size. Genitourinary: Large left subcapsular hematoma measuring 12.8 x 9.8 x 14.6 cm resulting in extrinsic compression of the renal parenchyma. No focal pseudoaneurysm or active extravasation is identified in the region of the hematoma. Partially evaluated left renal collecting system stent. No renal calculi. No hydroureteronephrosis. Adrenal Glands: Unremarkable. Gastrointestinal: The visualized alimentary tract is normal in course. No evidence of obstruction. Peritoneum: No pneumoperitoneum. Pancreatic tail intraperitoneal fluid collection measuring 8 x 4.4 x 3.4 cm, likely a hematoma. Lymph Nodes: No pathologically enlarged abdominal or pelvic lymph nodes. Soft Tissues/Musculoskeletal: There is no acute fracture or significant focal osseous lesion. IMPRESSION: 1. Large left subcapsular renal hematoma measuring 12.8 x 9.8 x 14.6 cm without active extravasation or pseudoaneurysm. 2. Intraperitoneal fluid collection near the pancreatic tail measuring 8 x 4.4 x 3.4 cm. When compared to prior noncontrast CT study performed 04/07/2024, the size of this is unchanged. Date of Service: 03/02/24 EXAMINATION: CT ABDOMEN AND PELVIS WITHOUT CONTRAST CLINICAL INFORMATION: Fever after urologic procedure COMPARISON: Cystoscopy and left ureteroscopy 02/08/2024, CT abdomen pelvis 08/13/2023 TECHNIQUE: Multidetector volumetric imaging was performed from the superior aspect of the liver through the pubic symphysis. Sagittal and coronal reformatted images were obtained on the technologist's workstation. This CT examination was performed using dose optimization techniques as appropriate, variously including the following: *Automated exposure control *Adjustment of mA and/or kV according to patient size (this includes techniques or standardized protocols for targeted exams where dose is matched to indication/reason for exam; i.e. extremities or head) *Use of iterative reconstruction technique DLP: 1139 mGy-cm FINDINGS: LUNG BASES: The visualized lung bases are unremarkable. LIVER, GALLBLADDER, AND BILIARY TREE: The liver is normal in size, shape, and attenuation. No focal hepatic lesion or biliary ductal dilatation is present. The gallbladder is unremarkable with no evidence of radiopaque gallstones, gallbladder wall thickening, or obvious pericholecystic inflammatory changes. PANCREAS: Unremarkable. SPLEEN: Unremarkable. ADRENAL GLANDS: Unremarkable. KIDNEYS AND URETERS: Right: At the upper pole the right kidney there is a 1.8 cm benign cyst which needs no additional imaging or follow-up. The kidney otherwise appears unremarkable without stones, hydronephrosis or suspicious masses. The right ureter is nondilated. Left: There is a moderate-sized subcapsular hematoma around the left kidney with a rind as thick as 2 cm. Some blood is also present in the perinephric space. A small bilateral parotid surrounds the proximal left ureter. The left ureter is not dilated. Large staghorn type calculi are present in the left renal pelvis with the largest measuring 2.1 cm there is left-sided pelvocaliectasis and multiple intrarenal nonobstructing calculi present. BLADDER: Unremarkable. GASTROINTESTINAL TRACT: The small and large bowel are unremarkable. The appendix is unremarkable. ABDOMINAL WALL: No significant hernia is appreciated. LYMPH NODES: No retroperitoneal lymphadenopathy. VASCULAR: Unremarkable. PELVIC VISCERA: The uterus and adnexa are unremarkable. OSSEOUS STRUCTURES: Mild degenerative changes are present in the lower thoracic spine. No bony destructive lesions. IMPRESSION: 1. Moderate-sized subcapsular hematoma around the left kidney with some blood in the perinephric space. 2. Large calculi in the left renal pelvis with left-sided pelvocaliectasis and multiple left-sided intrarenal nonobstructing calculi. 3. Other incidental findings as described above. Assessment & Plan Assessment & Plan (1) Staghorn calculus: Code(s): N20.0 - Calculus of kidney Category: Medical (2) Pyelonephritis: Code(s): N12 - Tubulo-interstitial nephritis, not specified as acute or chronic Category: Medical (3) Hematoma of kidney: Code(s): S37.019A - Minor contusion of unspecified kidney, initial encounter Category: Medical Qualifiers: Encounter type: subsequent encounter Laterality: left Qualified Code(s): S37.012D - Minor contusion of left kidney, subsequent encounter Plan lasix renal scan Orders: Orders NM renal flow w pharm int 05/05/24 S37.012D - Minor contusion of left kidney, subsequent encounter AMB Urinalysis Automated 05/05/24 Z13.9 - Encounter for screening, unspecified Urine Culture 05/05/24 N39.0 - Urinary tract infection, site not specified Patient Instructions: The patient had an opportunity to ask questions regarding treatment plan. The patient expressed understanding and agreement with the above treatment plan. The patient is aware they should contact our office by phone for worsening of their current condition or the appearance of new symptoms. Compliance is encouraged with any medications and followup testing that is ordered. It is a privilege to be allowed the opportunity to participate in the urologic care of your patient. If you have any questions or concerns regarding treatment for the above conditions please do not hesitate to contact me. The office telephone contact is [phone]. This note is constructed in part using voice recognition software. While every effort has been made to ensure accuracy blow torch operator errors may have been included. Yours sincerely, Justo Rodríguez MD Coding Level of Care Code Est Pt Level 4 (88527) Diagnoses Staghorn calculus N20.0 Pyelonephritis N12 Hematoma of left kidney, subsequent encounter S37.012D Encounter type: subsequent encounter Laterality: left
== END 2024-05-05 09:22 | disposition home or self-care (01) ==
PROVIDERS: PCP Internal Medicine; Visit Provider Urology
DX: N20.0 Calculus of kidney (principal); N12 Tubulo-interstitial nephritis, not specified as acute or chronic; S37.012D Minor contusion of left kidney, subsequent encounter
CPT/HCPCS: 99214

== ENCOUNTER 2024-05-05 08:08 | Outpatient (REF) | payer OTHER, SELFPAY | END 2024-05-05 08:09 | disposition home or self-care (01) | LOC: HO.LAB 08:08 | PROVIDERS: PCP Internal Medicine; Visit Provider Urology | DX: N39.0 Urinary tract infection, site not specified (principal); Z13.9 Encounter for screening, unspecified | CPT/HCPCS: 81003; 87086 ==

== ENCOUNTER 2024-05-18 16:11 | Outpatient (AMB) | payer OTHER, SELFPAY ==
--- NOTE | 2024-05-18 15:46 | A.OFFVIS_ITS ---
Intake Visit Reasons: 2w follow up Intake Note: Patient is Present for Telephone Follow Up Urology Med: Tamsulosin Antibiotic Allergy: Sulfa, Trimethroprim Blood Thinner: None Allergies sulfamethoxazole [From Bactrim] Allergy (Mild, Verified 06/06/24 12:54) Hives trimethoprim [From Bactrim] Allergy (Unknown, Verified 06/06/24 12:54) Anaphylaxis FISH Allergy (Unknown, Uncoded 06/06/24 12:54) Anaphylaxis HPI Comments Details: 05/18/24--Gabriela presents for telehealth follow-up. She states that she is feeling better she has less pain. She is drinking a lot of water throughout the day so that she is going frequently to the bathroom. Lasix renal scan is pending for June 07. Plan is to have her return to work next week without restrictions. The patient states that she does have 2 flights of stairs but then sits at a desk primarily during the day. 05/05/24--Gabriela is a 53-year-old female who was in the emergency room on 04/19 24 with pain. Comobidity, diabetes, morbid obesity. She has a history of left staghorn calculus. Due to the size of the staghorn calculus she had staged ureteroscopy. She is status post ureteroscopy on 12/28/2023 stent was placed at that time. She had repeat ureteroscopy on 02/08/2024 and there was residual stone. The patient presented to the emergency room on 03/02/2024 due to pain and fever CT imaging was notable for a subcapsular hematoma, a ureteral stent was p laced on 03/03/2024. The patient was hospitalized again in March. CTA was performed on 04/08/24 without active extravasation or pseudoaneurysm. CT at that time also noted a 2nd hematoma. The patient was recently evaluated on 04/19/24 in the emergency room with complaints of pain. Workup was negative for infection. I have discussed with the patient that it will take several weeks for the hematomas to absorb. Follow-up renal ultrasound 04/25/2024 reviewed, Large left subcapsular hematoma compressing the left kidney, complex fluid collection between the left kidney and spleen, which was noted previously on CT imaging. I have discussed that is important to have limited strenuous activity. The patient states that she has had fatigue. I feel that it is medically indicated to have her out of work for a period of time. Will reassess in 2 weeks. Will check a Lasix renal scan andl also will review films with Interventional Radiology. [facility] Medical History Hematoma of kidney Perinephric hematoma Asthma Benign paroxysmal positional vertigo Obesity Cataract CKD (chronic kidney disease) Depression HLD (hyperlipidemia) Diabetes HTN (hypertension) Sleep apnea History of kidney stones History of in vitro fertilization Surgical History H/O breast biopsy History of ureteroscopy Hx of ectopic History of open heart surgery Family History Father Cancer Mother Epilepsia Dementia Brother Drug abuse Bipolar 1 disorder Son No problems noted. Social History Household Members: Spouse and Children Housing: House Do you presently have visiting nurse or other home services: No Alcohol intake: never Patient Tobacco Use Status: Never used Tobacco Advance Directives Date on File: 04/12/24 service: No Telehealth Telehealth Telehealth Platform: [facility] Location of provider rendering services: practice address Location of patient: address on file Patient Identification confirmed using: Name, : Yes Telehealth method: video Patient verbally consented to treatment: Yes Patient verbally consented to billing insurance company: Yes Patient informed of any privacy concerns related to visit: Yes Assessment & Plan Assessment & Plan (1) Staghorn calculus: Code(s): N20.0 - Calculus of kidney Category: Medical (2) Pyelonephritis: Code(s): N12 - Tubulo-interstitial nephritis, not specified as acute or chronic Category: Medical (3) Hematoma of kidney: Code(s): S37.019A - Minor contusion of unspecified kidney, initial encounter Category: Medical Qualifiers: Encounter type: subsequent encounter Laterality: left Qualified Code(s): S37.012D - Minor contusion of left kidney, subsequent encounter Plan lasix renal scan pending Patient Instructions: The patient had an opportunity to ask questions regarding treatment plan. The patient expressed understanding and agreement with the above treatment plan. The patient is aware they should contact our office by phone for worsening of their current condition or the appearance of new symptoms. Compliance is encouraged with any medications and followup testing that is ordered. It is a privilege to be allowed the opportunity to participate in the urologic care of your patient. If you have any questions or concerns regarding treatment for the above conditions please do not hesitate to contact me. The office telephone contact is [phone]. This note is constructed in part using voice recognition software. While every e ffort has been made to ensure accuracy dandy operator errors may have been included. Yours sincerely, Justo Rodríguez MD Coding Level of Care Code Tele Est Pt Level 3 (19822) Diagnoses Staghorn calculus N20.0 Pyelonephritis N12 Hematoma of left kidney, subsequent encounter S37.012D Encounter type: subsequent encounter Laterality: left
== END 2024-05-18 16:40 | disposition home or self-care (01) ==
LOC: HO.HUSH 16:11
PROVIDERS: PCP Internal Medicine; Visit Provider Urology
DX: N20.0 Calculus of kidney (principal); N12 Tubulo-interstitial nephritis, not specified as acute or chronic; S37.012D Minor contusion of left kidney, subsequent encounter
CPT/HCPCS: 99213

== ENCOUNTER → 2024-05-18 16:11 | Outpatient (BNVA) | payer OTHER, SELFPAY | PROVIDERS: PCP Internal Medicine; Visit Provider Urology ==

== ENCOUNTER 2024-05-23 12:35 | Inpatient (IN) | payer OTHER, SELFPAY ==
--- NOTE | ~2024-05-23 | CT_ITS ---
EXAMINATION: CT ABDOMEN AND PELVIS WITHOUT CONTRAST CLINICAL INFORMATION: Left flank pain with history of stone. COMPARISON: 04/19/2024. TECHNIQUE: Multidetector volumetric imaging was performed from the superior aspect of the liver through the pubic symphysis without contrast per renal stone protocol. Sagittal and coronal reformatted images were obtained on the technologist workstation. This CT examination was performed using dose optimization techniques as appropriate, variously including the following: *Automated exposure control *Adjustment of mA and/or kV according to patient size (this includes techniques or standardized protocols for targeted exams where dose is matched to indication/reason for exam; i.e. extremities or head) *Use of iterative reconstruction technique DLP: 1035 mGy-cm. FINDINGS: LUNG BASES: The visualized lung bases are unremarkable. LIVER, GALLBLADDER, BILIARY TREE: The non-contrast liver is normal in size, shape, and attenuation. No focal hepatic lesion or biliary ductal dilatation is present. The gallbladder is unremarkable with no evidence of radiopaque gallstones, gallbladder wall thickening, or obvious pericholecystic inflammatory changes. PANCREAS: The previously noted collection in the region of the pancreatic tail has slightly decreased in size from the previous study. Currently this measures 7.5 cm in maximal diameter and previously measured 11.2 cm in maximal diameter. Pancreas difficult to assess otherwise on this noncontrast study. SPLEEN: Unremarkable. ADRENAL GLANDS: Unremarkable. KIDNEYS AND URETERS: There is a large complex collection along the lateral aspect of the left kidney. Although the collection is decreased in size there is gas seen within the collection which does directly abut the adjacent descending colon. Pericolonic fistula to this area cannot be excluded. Underlying renal mass lesion would be difficult to assess on this noncontrast study. A left ureteric stent is seen within the decompressed renal pelvis extending to the bladder. Contralateral right kidney demonstrates an upper pole exophytic cyst but no obstructive changes to the right kidney. BLADDER: Decompressed and unremarkable with the inferior aspect of the ureteric stent seen in the bladder lumen GASTROINTESTINAL TRACT: Colon is mostly decompressed. Again there is obscuration of the fat plane between the descending colon and the adjacent thickened Gerota's fascia and pericolonic collection with soft tissue density and air extending from the colon to the collection concerning for a colonic fistula. I do not appreciate any gas within the peripancreatic collection although it is in close proximity to the upper aspect of the thickened Gerota's fascia ABDOMINAL WALL: No significant hernia is appreciated. LYMPHOVASCULAR STRUCTURES: No lymphadenopathy. The aorta is unremarkable.. PELVIC VISCERA: Unremarkable. OSSEUS STRUCTURES: Mild degenerative changes in the spine CT/CT abdomen pelvis wo IV con IMPRESSION: 1. Left ureteric stent in place. There is a large complex collection along the lateral aspect of the left kidney. Although the collection is decreased in size from the prior 04/19/2024 study there is now gas seen within the collection which does abut the thickened Gerota's fossa and adjacent descending colon. Pericolonic fistula to this area cannot be excluded. 2. Underlying renal mass lesion would be difficult to assess on this noncontrast study. 3. Fluid collection in the region of the pancreatic tail has decreased in size from the prior study. I do not appreciate any gas bubbles within the peripancreatic collection although this is in close proximity to the perinephric collection. This critical result was discussed with Dr Burns at 05/23/2024 9:55 PM and it was ascertained that the content and urgency of the report was understood at the time of direct communication.
--- NOTE | ~2024-05-23 | CT_ITS ---
EXAMINATION: CT ABDOMEN AND PELVIS WITHOUT CONTRAST CLINICAL INFORMATION: Abscess follow-up COMPARISON: CT abdomen pelvis 05/23/2024. CT guided abscess drainage 05/25/2024. CT angiogram abdomen pelvis 04/08/2024. TECHNIQUE: Multidetector volumetric imaging was performed from the superior aspect of the liver through the pubic symphysis. Sagittal and coronal reformatted images were obtained on the technologist's workstation. This CT examination was performed using dose optimization techniques as appropriate, variously including the following: *Automated exposure control *Adjustment of mA and/or kV according to patient size (this includes techniques or standardized protocols for targeted exams where dose is matched to indication/reason for exam; i.e. extremities or head) *Use of iterative reconstruction technique DLP: 891.63 mGy-cm FINDINGS: LUNG BASES: The visualized lung bases are unremarkable. LIVER, GALLBLADDER, AND BILIARY TREE: The liver is normal in size and shape with slightly decreased attenuation suggesting hepatic steatosis. No focal hepatic lesion or biliary ductal dilatation is present. The gallbladder is unremarkable with no evidence of radiopaque gallstones, gallbladder wall thickening, or obvious pericholecystic inflammatory changes. PANCREAS: A cyst is present in the pancreatic tail with surrounding inflammatory change measuring 5.3 x 3.7 x 3.2 cm which has decreased in size since 05/23/2024 when this measured 7.6 x 4.8 cm in transverse dimension. SPLEEN: Spleen is enlarged at 13.9 cm. ADRENAL GLANDS: Unremarkable. KIDNEYS AND URETERS: The catheter that was placed into the perirenal space remains and the perirenal/subcapsular collection previously seen has significantly decreased in size. Without IV contrast it is difficult to assess the remaining size but this appears to measure only about 4.0 x 2.4 x 3.8 cm. The catheter is at the left lateral edge of the collection. A few air bubbles are seen within the collection. A double-J left internally dwelling ureteral stent is present. There is no left-sided hydronephrosis. There is a small 3 mm round calcification seen in the left renal hilum consistent with a stone also present on 05/23/2024. The right kidney is normal with a 2.2 cm benign Bosniak class I cyst at the upper pole which requires no additional imaging or follow-up. 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 BLADDER: Unremarkable. GASTROINTESTINAL TRACT: The small and large bowel are unremarkable. The appendix is unremarkable. ABDOMINAL WALL: No significant hernia is appreciated. Tiny periumbilical hernia containing only fat. Above-mentioned drainage catheter left abdominal wall. LYMPH NODES: No retroperitoneal lymphadenopathy. VASCULAR: Unremarkable. PELVIC VISCERA: The uterus and adnexa are unremarkable. OSSEOUS STRUCTURES: Unremarkable. CT/CT abdomen pelvis wo IV con IMPRESSION: 1. The left perirenal/subcapsular collection has significantly decreased in size. The catheter remains in place. 2. 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 3. A cyst is present in the pancreatic tail with surrounding inflammatory change which has decreased in size since 05/23/2024. 4. Other incidental findings as described above. Fleischner guidelines were followed.
--- NOTE | ~2024-05-23 | CT_ITS ---
History: Patient with left retroperitoneal hematoma versus abscess versus fistula collection post urologic intervention. Procedure performed: 1. CT-guided abscess drain placement Physician: Lois Delgado MD FSIR Anesthesia: IV moderate sedation with intravenous fentanyl and versed was administered under my direct supervision for a total of 30 minutes with continuous physiologic monitoring. 10 mL of 1% lidocaine was administered for local anesthesia. Specimen: 60 mL of pus Drain: 14 Egyptian locking pigtail Estimated blood loss: Minimal Complications: None Procedure in detail: Informed and written consent was obtained. Patient was positioned right lateral decubitus on the CT examination table. Preliminary CT scan demonstrated a complex fluid collection with a few air bubbles in the perirenal space adjacent to the left kidney. The overlying skin was prepped and draped. 1% lidocaine was administered to the subcutaneous tissues. A small incision was made in the skin with a #11 blade. Through the incision and under CT guidance, a Yueh needle catheter was advanced into the collection through which an Amplatz wire was placed. Over the wire, serial dilatation was performed until a 14 Egyptian locking pigtail drain could be placed and connected to suction. This was sutured in place and follow-up CT scan showed good position of the tube. A sterile dressing was applied. Summary: Successful CT-guided placement of a large drain into an abscess. We do feel that it is possible there is fistulous communication with the left colon and if necessary, this could be studied with a contrast injection after decompression.
[2024-05-23 12:59] VITALS: BP 132/83; PULSE 116; RESP 20; TEMP 36.2; O2SAT 96; BMI 43.4
--- NOTE | 2024-05-23 13:00 | ED_ITS ---
HPI - General Adult General Chief complaint: Abdominal Pain Stated complaint: vomiting weak Time Seen by Provider: 05/23/24 20:04 Source: patient Mode of arrival: ambulatory Limitations: no limitations History of Present Illness ED Provider: man NEVES narrative: Patient 53 years old with history of staghorn calculus left kidney status post stent placement 12/28/2023 with history of large left subcapsular hematoma in 04/15 with history of CKD depression and diabetes and hypertension comes here for persistent pain in the left lower abdomen and left flank area got worse today after she came to work, no fever no chills does have odor in the urine does have nausea poor oral intake no vomiting or diarrhea Related Data Home Medications ?Medication ?Instructions ?Recorded ?Confirmed albuterol sulfate 90 mcg/actuation 2 puff inhalation Q6H PRN 09/17/23 04/19/24 aerosol inhaler (Ventolin HFA) Shortness Of Breath Or Wheezing budesonide-formoterol HFA 160 2 puff inhalation BID 09/17/23 04/19/24 mcg-4.5 mcg/actuation aerosol inhaler (Symbicort) citalopram 40 mg tablet 40 mg PO DAILY 09/17/23 04/19/24 lisinopril 20 mg tablet 20 mg PO DAILY 09/17/23 04/19/24 meclizine 25 mg tablet 25 mg PO DAILY Vertigo 09/17/23 04/19/24 metformin 1,000 mg tablet 1,000 mg PO BID 09/17/23 04/19/24 montelukast 10 mg tablet 10 mg PO BEDTIME 09/17/23 04/19/24 norethindrone acetate 5 mg tablet 5 mg PO DAILY 09/17/23 04/19/24 simvastatin 40 mg tablet 40 mg PO BEDTIME 09/17/23 04/19/24 tirzepatide 7.5 mg/0.5 mL 7.5 mg subcut SA@0900 03/02/24 04/19/24 subcutaneous pen injector (Edison) glipizide 5 mg tablet, extended 5 mg PO DAILY 04/07/24 04/19/24 release 24 hr tamsulosin 0.4 mg capsule 0.4 mg PO BEDTIME 04/07/24 04/19/24 Previous Rx's ?Medication ?Instructions ?Recorded allopurinol 100 mg tablet 100 mg PO DAILY 90 days #90 tabs 03/23/24 potassium citrate 10 mEq (1,080 20 meq (2 x 10 mEq (1,080 mg)) PO 03/23/24 mg) tablet,extended release BID 90 days #360 tabs ferrous sulfate 324 mg (65 mg 324 mg PO BID #60 tabs 04/11/24 iron) tablet,delayed release oxycodone-acetaminophen 5 mg-325 See Rx Instructions PO Q6H PRN 04/19/24 mg tablet (Percocet) pain #12 tabs Allergies Allergy/AdvReac Type Severity Reaction Status Date / Time sulfamethoxazole Allergy Mild Hives Verified 05/23/24 13:01 [From Bactrim] trimethoprim [From Bactrim] Allergy Unknown Anaphylaxis Verified 05/23/24 13:01 FISH Allergy Unknown Anaphylaxis Uncoded 05/23/24 13:01 Review of Systems 2 Review of Systems: Yes all other systems are reviewed and are negative PMFSH Past Medical History Medical History Hematoma of kidney Perinephric hematoma Asthma Benign paroxysmal positional vertigo Obesity Cataract CKD (chronic kidney disease) Depression HLD (hyperlipidemia) Diabetes HTN (hypertension) Sleep apnea History of kidney stones History of in vitro fertilization Surgical History H/O breast biopsy History of ureteroscopy Hx of ectopic History of open heart surgery Family History Family History Father Cancer Mother Epilepsia Dementia Brother Drug abuse Bipolar 1 disorder Son No problems noted. Social History Social History Household Members: Family Housing: House Do you presently have visiting nurse or other home services: No Alcohol intake: never Patient Tobacco Use Status: Never used Tobacco Smoked in Last 30 Days: No Use of substances other than those prescribed or required for medical reasons: No Advance Directives: Yes Advance Directives on File: Yes Advance Directives Date on File: 04/12/24 Do you have a plan to hurt others: No Plan Patient : No service: No Physical Exam ED Vital Signs: Vital Signs - 24 hr 05/23/24 12:59 05/23/24 17:20 05/23/24 20:00 Temperature 97.2 F 98.6 F 98.4 F Pulse Rate 116 H 109 H 103 H Respiratory Rate 20 18 20 Blood Pressure 132/83 127/80 123/70 Pulse Oximetry 96 99 100 Oxygen Delivery Method Room Air Room Air Room Air 05/23/24 21:32 05/23/24 21:48 Temperature 98.9 F Pulse Rate 97 Respiratory Rate 20 15 Blood Pressure 127/55 L Pulse Oximetry 98 Oxygen Delivery Method Room Air BMI result Body Mass Index 43.4 Appearance: Alert. Oriented X3. No acute distress. Eyes: No pallor or icterus ENT: Pharynx normal. Oral Mucosa moist Neck: Normal inspection. Neck supple. CVS: Normal heart rate and rhythm. Pulses normal. Respiratory: No respiratory distress. Equal air entry bilateral, no wheezing/rales/rhonchi Abdomen: Soft and nontender. Bowel sounds are present, no mass palpable,L CVA tenderness++ Skin: Skin warm and dry. Normal skin color. Normal skin turgor. Extremities: No lower extremity edema. No calf tenderness Neuro: Oriented X 3. No motor deficit. Course Course Course Narrative: RME performed by Ly Houston PA-C. Patient is a 53 year old assigned female at presenting to the emergency department with vomiting, weakness, and LLQ abd pain. Detailed physical exam and review of systems are deferred to the patient financial services specialist. Labs and swabs ordered. Patient placed back in the waiting room pending room availability and results. Medications Administered Generic Name Dose Route Start Last Admin Trade Name Freq PRN Reason Stop Dose Admin Sodium Chloride 3 ml 05/24/24 00:00 05/24/24 00:18 0.9 % Sodium Chloride Flush 3 Ml Syringe IVFLUSH 3 ml QSHIFT NUBIA Administration Discontinued Medications Generic Name Dose Route Start Last Admin Trade Name Freq PRN Reason Stop Dose Admin Sodium Chloride 1,000 mls @ 999 mls/hr 05/23/24 20:19 05/23/24 22:58 Ns IV 05/23/24 21:19 Infused .Q1H1M ONE Infusion Ceftriaxone Sodium 1 gm/ 50 mls @ 100 mls/hr 05/23/24 20:23 05/23/24 22:05 Sodium Chloride IV 05/23/24 20:52 Infused ONCE ONE Infusion Piperacillin Sod/Tazobactam 50 mls @ 100 mls/hr 05/23/24 21:56 05/23/24 23:40 Sod 3.375 gm/ Sodium Chloride IV 05/23/24 22:25 Infused ONCE ONE Infusion Morphine Sulfate 4 mg 05/23/24 20:19 05/23/24 21:32 Morphine Sulfate 4 Mg/Ml Cartridge IVPUSH 05/23/24 20:20 4 mg ONCE ONE Administration Protocol Ondansetron HCl 4 mg 05/23/24 20:19 05/23/24 21:33 Ondansetron Hcl 4 Mg/2 Ml Vial IVPUSH 05/23/24 20:20 4 mg ONCE ONE Administration Medical Decision Making Medical Decision Making [facility] Narrative: Patient with significant left flank pain for last several weeks with history of pericapsular hematoma in the left side CT scan showed air in the area possible abscess possible renal colonic fistula which is very unlikely patient's WBC count was elevated to 15.6 with normal lactic acid level UA showing WBCs case discussed with Dr. Huddleston surgeon unlikely colonic fistula. Case discussed with urologist Dr. Ochoa advised IV antibiotics will follow up patient in a.m. admit to hospitalist service Differential Diagnosis Differential Diagnoses: The differential diagnosis associated with the presentation includes Admission/Observation Consideration of admission/observation: Escalation of care including admission/observation considered Consult Healthcare Provider Management of the patient was discussed with: Hospitalist Lab Data [facility] Lab Attestation statement: I reviewed the patient's lab results. 05/23/24 13:58 05/23/24 13:58 Labs: Lab Results 05/23/24 05/23/24 05/23/24 Range/Units 13:58 20:07 21:03 WBC 15.6 H (4.8-10.8) X10*3/uL RBC 4.45 (4.20-5.50) X10*6/uL Hgb 10.0 L (12.0-16.0) g/dl Hct 32.4 L (37.0-47.0) % MCV 72.8 L (80.0-98.0) fL MCH 22.5 L (27.0-33.0) pg MCHC 30.9 L (31.0-35.0) g/dl RDW 19.4 H (11.0-16.0) % Plt Count 562 H D (160-400) X10*3/uL MPV 8.3 L (9.4-12.3) fL Immature Gran % (Auto) 0.4 (0.0-0.4) % Neut % (Auto) 67.4 (45-73) % Lymph % (Auto) 26.7 (20-40) % [place] % (Auto) 4.9 (2-11) % Eos % (Auto) 0.3 (0-4) % Baso % (Auto) 0.3 (0-2) % Lymph # (Auto) 4.2 (1.2-4.9) X10*3/uL [place] # (Auto) 0.8 (0.1-1.2) X10*3/uL Eos # (Auto) 0.1 (0.0-0.4) X10*3/uL Baso # (Auto) 0.0 (0.0-0.2) X10*3/uL Abs Immat Gran (auto) 0.07 H (0.00-0.03) X10*3/uL Absolute Neuts (auto) 10.5 H (2.0-8.3) x10*3/uL Absolute Nucleated RBC 0.000 (0.0-0.012) X10*3/uL Nucleated RBC % (auto) 0.0 (0.0-0.2) /100WBC Sodium 129 L (135-145) mmol/L Potassium 3.3 D (3.3-5.1) mmol/L Chloride 93 L (96-108) mmol/L Carbon Dioxide 24 (22-29) mmol/L Anion Gap 15 (12-20) BUN 13 (9-16) mg/dL Creatinine 1.30 (0.5-1.4) mg/dL Estim Creat Clear Calc 64.4 Estimated GFR 43 Random Glucose 157 H (60-115) mg/dL Lactic Acid 0.9 (0.5-2.0) mmol/L Calcium 8.9 (8.4-10.2) mg/dL Magnesium 1.6 (1.6-2.6) mg/dL Total Bilirubin 0.5 (0.0-1.0) mg/dL AST 11 (5-31) U/L ALT 9 (0-31) U/L Alkaline Phosphatase 113 (39-117) U/L Total Protein 7.9 (6.5-8.0) g/dL Albumin 2.9 L (3.5-5.0) g/dL Urine Color Yellow Urine Appearance Cloudy Urine pH 5.5 (5.0-9.0) Ur Specific [place] 1.015 (1.005-1.025) Urine Protein 30 (1+) H (Neg-Trace) mg/dL Urine Glucose (UA) Negative (Negative) mg/dL Urine Ketones Trace (Negative) mg/dL Urine Blood Trace H (Negative) Urine Nitrite Negative (Negative) Ur Leukocyte Esterase Moderate (2+) H (Negative) Urine RBC 3-5 H (0-2) /HPF Urine WBC 21-50 H (0-5) /HPF Ur Squamous Epith Cells 11-20 (0-2) /HPF Urine Bacteria Trace (None Seen) Hyaline Casts 3-5 (0-2) /LPF Influenza Type A (PCR) NEGATIVE (Negative) Influenza Type B (PCR) NEGATIVE (Negative) RSV RNA Qual (PCR) NEGATIVE (Negative) SARS-CoV-2 RNA (RT-PCR) NEGATIVE (Negative) Independent Interpretation I performed an independent interpretation of an: CT Scan Radiology Impression Discussion of test interpretation with radiology: I have reviewed the radiologist's reading. Radiologist Impression: [place] [id number] CT Scan Report Signed Patient: Gabriela Fernández MR#: [id number] : 1970 Acct:[id number] Age/Sex: 53 / F ADM Date: 05/23/24 Loc: .ED Attending Dr: Ordering Physician: Rajendra Gutierrez MD Date of Service: 05/23/24 Procedure(s): CT abdomen pelvis wo IV con Accession Number(s): [id number] cc: Eva Galarza MD; Rajendra Gutierrez MD~ EXAMINATION: CT ABDOMEN AND PELVIS WITHOUT CONTRAST CLINICAL INFORMATION: Left flank pain with history of stone. COMPARISON: 04/19/2024. TECHNIQUE: Multidetector volumetric imaging was performed from the superior aspect of the liver through the pubic symphysis without contrast per renal stone protocol. Sagittal and coronal reformatted images were obtained on the technologist workstation. This CT examination was performed using dose optimization techniques as appropriate, variously including the following: *Automated exposure control *Adjustment of mA and/or kV according to patient size (this includes techniques or standardized protocols for targeted exams where dose is matched to indication/reason for exam; i.e. extremities or head) *Use of iterative reconstruction technique DLP: 1035 mGy-cm. FINDINGS: LUNG BASES: The visualized lung bases are unremarkable. LIVER, GALLBLADDER, BILIARY TREE: The non-contrast liver is normal in size, shape, and attenuation. No focal hepatic lesion or biliary ductal dilatation is present. The gallbladder is unremarkable with no evidence of radiopaque gallstones, gallbladder wall thickening, or obvious pericholecystic inflammatory changes. PANCREAS: The previously noted collection in the region of the pancreatic tail has slightly decreased in size from the previous study. Currently this measures 7.5 cm in maximal diameter and previously measured 11.2 cm in maximal diameter. Pancreas difficult to assess otherwise on this noncontrast study. SPLEEN: Unremarkable. ADRENAL GLANDS: Unremarkable. KIDNEYS AND URETERS: There is a large complex collection along the lateral aspect of the left kidney. Although the collection is decreased in size there is gas seen within the collection which does directly abut the adjacent descending colon. Pericolonic fistula to this area cannot be excluded. Underlying renal mass lesion would be difficult to assess on this noncontrast study. A left ureteric stent is seen within the decompressed renal pelvis extending to the bladder. Contralateral right kidney demonstrates an upper pole exophytic cyst but no obstructive changes to the right kidney. BLADDER: Decompressed and unremarkable with the inferior aspect of the ureteric stent seen in the bladder lumen GASTROINTESTINAL TRACT: Colon is mostly decompressed. Again there is obscuration of the fat plane between the descending colon and the adjacent thickened Gerota's fascia and pericolonic collection with soft tissue density and air extending from the colon to the collection concerning for a colonic fistula. I do not appreciate any gas within the peripancreatic collection although it is in close proximity to the upper aspect of the thickened Gerota's fascia ABDOMINAL WALL: No significant hernia is appreciated. LYMPHOVASCULAR STRUCTURES: No lymphadenopathy. The aorta is unremarkable.. PELVIC VISCERA: Unremarkable. OSSEUS STRUCTURES: Mild degenerative changes in the spine CT/CT abdomen pelvis wo IV con IMPRESSION: 1. Left ureteric stent in place. There is a large complex collection along the lateral aspect of the left kidney. Although the collection is decreased in size from the prior 04/19/2024 study there is now gas seen within the collection which does abut the thickened Gerota's fossa and adjacent descending colon. Pericolonic fistula to this area cannot be excluded. 2. Underlying renal mass lesion would be difficult to assess on this noncontrast study. 3. Fluid collection in the region of the pancreatic tail has decreased in size from the prior study. I do not appreciate any gas bubbles within the peripancreatic collection although this is in close proximity to the perinephric collection. This critical result was discussed with Dr Burns at 05/23/2024 9:55 PM and it was ascertained that the content and urgency of the report was understood at the time of direct communication. Critical Care Time Critical Care Time Critical Care Time: Yes Total Critical Care Time: 60 Attestation: The patient was critically ill with a high probability of imminent or life threatening deterioration. I spent greater than 65 ?minutes of discontinuous time evaluating the patient,delivering critical care at the bedside, discussing and evaluating pertinent data with consultants. Critical care time does not include time spent performing separately billable procedures or teaching. Total time spent performing critical care was 60?minutes. Discharge Plan Discharge Clinical Impression: Perinephric abscess, Chronic flank pain Patient Disposition: Admitted As Inpatient
[2024-05-23 13:58] LABS: MANUAL DIFF FLAG NO
[2024-05-23 14:01] LABS: Basophils Percent Auto 0.3 % (0-2); Eosinophils Absolute Auto 0.1 X10*3/uL (0.0-0.4); Eosinophils Percent Auto 0.3 % (0-4); Hematocrit 32.4 % (37.0-47.0); Imm Gran Abs Auto 0.07 X10*3/uL (0.00-0.03); Imm Gran Pct Auto 0.4 % (0.0-0.4); Lymphocytes Absolute Auto 4.2 X10*3/uL (1.2-4.9); Lymphocytes Percent Auto 26.7 % (20-40); Mean Corpuscular HGB Conc 30.9 g/dl (31.0-35.0); Mean Corpuscular Hemoglobin 22.5 pg (27.0-33.0); Mean Corpuscular Volume 72.8 fL (80.0-98.0); Mean Platelet Volume 8.3 fL (9.4-12.3); Monocytes Absolute Auto 0.8 X10*3/uL (0.1-1.2); Monocytes Percent Auto 4.9 % (2-11); Neutrophils Absolute Auto 10.5 x10*3/uL (2.0-8.3); Neutrophils Percent Auto 67.4 % (45-73); Platelet Count 562 X10*3/uL (160-400); Red Blood Count 4.45 X10*6/uL (4.20-5.50); Red Cell Distribution Width 19.4 % (11.0-16.0); White Blood Count 15.6 X10*3/uL (4.8-10.8)
[2024-05-23 14:17] LABS: Alanine Aminotransferase 9 U/L (0-31); Albumin Level 2.9 g/dL (3.5-5.0); Alkaline Phosphatase 113 U/L (39-117); Anion Gap 15 (12-20); Aspartate Amino Transferase 11 U/L (5-31); Bilirubin Total 0.5 mg/dL (0.0-1.0); Blood Urea Nitrogen 13 mg/dL (9-16); Calcium 8.9 mg/dL (8.4-10.2); Carbon Dioxide 24 mmol/L (22-29); Chloride 93 mmol/L (96-108); Creatinine Clr Calc Pharmacy 64.4; Estimated Glomerular Filt Rate 43; Glucose Random 157 mg/dL (60-115); Magnesium 1.6 mg/dL (1.6-2.6); Potassium 3.3 mmol/L (3.3-5.1); Sodium 129 mmol/L (135-145); Total Protein 7.9 g/dL (6.5-8.0)
[2024-05-23 14:37] LABS: Influenza A PCR NEGATIVE (Negative); Influenza B PCR NEGATIVE (Negative); Resp Syncy Virus RNA Qual PCR NEGATIVE (Negative); SARS COV2 PCR INHOUSE NEGATIVE (Negative)
[2024-05-23 17:20] VITALS: BP 127/80; PULSE 109; RESP 18; TEMP 37; O2SAT 99
[2024-05-23 20:00] VITALS: BP 123/70; PULSE 103; RESP 20; TEMP 36.9; O2SAT 100
--- NOTE | 2024-05-23 20:10 | PC.NURSE ---
Pt ca&ox4, no signs of distress. Pt UA sent Pt reporting 7/10 left sided abd pain, n/v/d with previous episodes of this. Plan of care ongoing.
[2024-05-23 20:14] LABS: Appearance Urine Cloudy; Color Urine Yellow; Glucose Urine UA Negative (Negative); Leukocyte Esterase Urine Moderate (2+) (Negative); Nitrite Urine Negative (Negative); PH 5.5 (5.0-9.0); Specific Gravity - Urine 1.015 (1.005-1.025); UMIC TRIGGER UACC YES; Urine Blood Trace (Negative); Urine Ketones Trace mg/dL (Negative); Urine Protein 30 (1+) mg/dL (Neg-Trace)
[2024-05-23 20:19] LABS: Bacteria Urine Trace (None Seen); UACC Culture Trigger YES; WBC Urine 21-50 /HPF (0-5)
[2024-05-23 21:27] LABS: Lactic Acid 0.9 mmol/L (0.5-2.0)
[2024-05-23 21:32] VITALS: RESP 20
[2024-05-23] MEDS: Morphine Sulfate 4 MG/ML CARTRIDGE IVPUSH (21:32)
[2024-05-23] MEDS: cefTRIAXone sodium 1 GM in 0.9 % Sodium Chloride 50 ML IV (21:32)
[2024-05-23] MEDS: ondansetron HCL 4 MG/2 ML VIAL IVPUSH (21:33)
[2024-05-23] MEDS: 0.9 % Sodium Chloride 1,000 ML 999 ML IV (21:33)
--- NOTE | 2024-05-23 21:40 | PC.NURSE ---
Pt required IV line, meds given late. Pt ca&ox4, no signs of distress. Pt medicated per jan. Pt requested and lights dimmed. Plan of care ongoing.
[2024-05-23 21:48] VITALS: BP 127/55; PULSE 97; RESP 15; TEMP 37.2; O2SAT 98
--- NOTE | 2024-05-23 22:54 | MHC.EDTECH ---
Patient linen soiled. Changed bedding and clothing, adjust patient with assistance. Call berry back at bedside.
[2024-05-23] MEDS: Piperacillin Sodium/Tazobactam 3.375 GM in 0.9 % Sodium Chloride 50 ML IV (23:03)
--- NOTE | 2024-05-23 23:05 | PC.NURSE ---
Pt medicated per jan. Plan of care ongoing.
--- NOTE | 2024-05-23 23:21 | PM.IMHP ---
History of Present Illness Date of Service: 05/23/24 Chief Complaint: Abdominal Pain This is a 53-year-old female with pertinent history of nephrolithiasis status post stent placement in February by Dr. Ochoa, left subscapsular hematoma, [id number] type 2 diabetes mellitus, obesity, hypertension, asthma not on home oxygen, mixed hyperlipidemia who presents to the emergency department for evaluation of abdominal pain. Patient states she has had lingering left-sided flank pain since her previous hospitalization. Patient returned to work after consulting with her urologist. Patient states on the day of presentation the left-sided flank pain got worse and was associated with chills and sweating. No dysuria or urinary hesitancy but she has had increased urinary frequency since the stent placement. No fever, chest discomfort, palpitations, shortness of breath. Had 1 episode of diarrhea. In the emergency department, imaging with collection along left kidney. Urology and General surgery were consulted who will evaluate the patient in a.m.. Review of Systems Constitutional: Constitutional: Reports chills Cardiovascular: Cardiovascular: Reports no additional cardiovascular complaints Respiratory: Respiratory: Reports no additional respiratory complaints Gastrointestinal: Gastrointestinal: Reports abdominal pain Genitourinary: Genitourinary: Reports urinary incontinence [facility] Medical History Hematoma of kidney Perinephric hematoma Asthma Benign paroxysmal positional vertigo Obesity Cataract CKD (chronic kidney disease) Depression HLD (hyperlipidemia) Diabetes HTN (hypertension) Sleep apnea History of kidney stones History of in vitro fertilization Family History Father Cancer Mother Epilepsia Dementia Brother Drug abuse Bipolar 1 disorder Son No problems noted. Surgical History H/O breast biopsy History of ureteroscopy Hx of ectopic History of open heart surgery Social History Household Members: Family Housing: House Do you presently have visiting nurse or other home services: No Alcohol intake: never Patient Tobacco Use Status: Never used Tobacco Smoked in Last 30 Days: No Use of substances other than those prescribed or required for medical reasons: No Advance Directives: Yes Advance Directives on File: Yes Advance Directives Date on File: 04/12/24 Do you have a plan to hurt others: No Plan Patient : No service: No Meds Allergies Allergy/AdvReac Type Severity Reaction Status Date / Time sulfamethoxazole Allergy Mild Hives Verified 05/23/24 13:01 [From Bactrim] trimethoprim [From Bactrim] Allergy Unknown Anaphylaxis Verified 05/23/24 13:01 FISH Allergy Unknown Anaphylaxis Uncoded 05/23/24 13:01 Home Medications ?Medication ?Instructions ?Recorded ?Confirmed ?Last Taken ?Type albuterol sulfate 90 mcg/actuation 2 puff inhalation Q6H PRN 09/17/23 04/19/24 Unknown History aerosol inhaler (Ventolin HFA) Shortness Of Breath Or Wheezing budesonide-formoterol HFA 160 2 puff inhalation BID 09/17/23 04/19/24 04/05/24 History mcg-4.5 mcg/actuation aerosol inhaler (Symbicort) citalopram 40 mg tablet 40 mg PO DAILY 09/17/23 04/19/24 04/05/24 History lisinopril 20 mg tablet 20 mg PO DAILY 09/17/23 04/19/24 04/05/24 History meclizine 25 mg tablet 25 mg PO DAILY Vertigo 09/17/23 04/19/24 04/05/24 History metformin 1,000 mg tablet 1,000 mg PO BID 09/17/23 04/19/24 04/05/24 History montelukast 10 mg tablet 10 mg PO BEDTIME 09/17/23 04/19/24 04/05/24 History norethindrone acetate 5 mg tablet 5 mg PO DAILY 09/17/23 04/19/24 04/05/24 History simvastatin 40 mg tablet 40 mg PO BEDTIME 09/17/23 04/19/24 04/05/24 History tirzepatide 7.5 mg/0.5 mL 7.5 mg subcut SA@0900 03/02/24 04/19/24 04/02/24 History subcutaneous pen injector (Иванunbhaskar) glipizide 5 mg tablet, extended 5 mg PO DAILY 04/07/24 04/19/24 04/05/24 History release 24 hr tamsulosin 0.4 mg capsule 0.4 mg PO BEDTIME 04/07/24 04/19/24 04/05/24 History Physical Exam Vital Signs and Narrative: Vital Signs: Last Vital Signs Temp 98.9 F 05/23/24 21:48 Pulse 97 05/23/24 21:48 Resp 15 05/23/24 21:48 BP 127/55 L 05/23/24 21:48 Pulse Ox 98 05/23/24 21:48 O2 Del Method Room Air 05/23/24 21:48 BMI result Body Mass Index 43.4 Middle-aged female lying in bed in no distress Neck supple, no JVD Regular rate and rhythm, S1-S2 heard Regular breath sounds bilaterally, no wheezing or crackles appreciated Abdomen with left CVA tenderness Patient is awake, alert and oriented to self, place, time and person ; no focal motor deficit Psych: Normal mood No pedal edema Results Labs 05/23/24 13:58 05/23/24 13:58 Labs: Laboratory Results - last 24 hr 05/23/24 05/23/24 05/23/24 13:58 20:07 21:03 MCV 72.8 L MCH 22.5 L MCHC 30.9 L RDW 19.4 H Plt Count 562 H D MPV 8.3 L Immature Gran % (Auto) 0.4 Neut % (Auto) 67.4 Lymph % (Auto) 26.7 [place] % (Auto) 4.9 Eos % (Auto) 0.3 Baso % (Auto) 0.3 Lymph # (Auto) 4.2 [place] # (Auto) 0.8 Eos # (Auto) 0.1 Baso # (Auto) 0.0 Abs Immat Gran (auto) 0.07 H Absolute Neuts (auto) 10.5 H Absolute Nucleated RBC 0.000 Nucleated RBC % (auto) 0.0 Anion Gap 15 Estim Creat Clear Calc 64.4 Estimated GFR 43 Random Glucose 157 H Lactic Acid 0.9 Calcium 8.9 Magnesium 1.6 Total Bilirubin 0.5 AST 11 ALT 9 Alkaline Phosphatase 113 Total Protein 7.9 Albumin 2.9 L Urine Color Yellow Urine Appearance Cloudy Urine pH 5.5 Ur Specific [place] 1.015 Urine Protein 30 (1+) H Urine Glucose (UA) Negative Urine Ketones Trace Urine Blood Trace H Urine Nitrite Negative Ur Leukocyte Esterase Moderate (2+) H Urine RBC 3-5 H Urine WBC 21-50 H Ur Squamous Epith Cells 11-20 Urine Bacteria Trace Hyaline Casts 3-5 Influenza Type A (PCR) NEGATIVE Influenza Type B (PCR) NEGATIVE RSV RNA Qual (PCR) NEGATIVE SARS-CoV-2 RNA (RT-PCR) NEGATIVE Imaging Radiologist's Impressions: Impressions Abdomen/Pelvis CT 05/23/24 20:34 IMPRESSION: 1. Left ureteric stent in place. There is a large complex collection along the lateral aspect of the left kidney. Although the collection is decreased in size from the prior 04/19/2024 study there is now gas seen within the collection which does abut the thickened Gerota's fossa and adjacent descending colon. Pericolonic fistula to this area cannot be excluded. 2. Underlying renal mass lesion would be difficult to assess on this noncontrast study. 3. Fluid collection in the region of the pancreatic tail has decreased in size from the prior study. I do not appreciate any gas bubbles within the peripancreatic collection although this is in close proximity to the perinephric collection. This critical result was discussed with Dr Burns at 05/23/2024 9:55 PM and it was ascertained that the content and urgency of the report was understood at the time of direct communication. Assessment and Plan (1) Hematoma of kidney: Qualifiers: Encounter type: subsequent encounter Laterality: left Qualified Code(s): S37.012D - Minor contusion of left kidney, subsequent encounter Status: Acute Plan This is a 53-year-old female with pertinent history of nephrolithiasis status post stent placement in February by Dr. Ochoa, left subscapsular hematoma, [id number] type 2 diabetes mellitus, obesity, hypertension, asthma not on home oxygen, mixed hyperlipidemia who presents to the emergency department for evaluation of abdominal pain. #. Left flank pain. Imaging with collection along left kidney with gas. Urology and general surgery consulted. Initiating IV Zosyn. IV opioids p.r.n. for analgesia #. ?UTI: On antibiotics as above #. SIRS: Meets sepsis criteria. Resuscitated with IV crystalloids. Lactic acid and blood culture obtained #. Zgr-dzhwcla-squcfkqtu type 2 diabetes mellitus: Initiating Accu-Cheks with sliding scale insulin #. Hypertension: Continue home antihypertensives #. Asthma not on home oxygen: Continue montelukast and Symbicort #. Mixed hyperlipidemia: On statin #. Morbid obesity: Weight loss and diet counseling done Med rec pending DVT prophylaxis: Mechanical Full code Admit as inpatient and will require two night minimum hospital stay for IV antibiotics and IV opioids (as above), which is not possible in a lesser acute setting. Specialist consult pending Quality Stroke Does the patient have a stroke diagnosis?: No VTE Prior VTE?: No VTE Risk Level:: Medical - moderate - high VTE Device Contraindication: N/A - Device Ordered VTE Drug Contraindication: Treatment Not Indicated
[2024-05-23 23:24] VITALS: BP 119/56; PULSE 96; RESP 20; TEMP 37; O2SAT 96
--- NOTE | 2024-05-23 23:31 | MHC.EDTECH ---
PATIENT VITALS TAKEN AND PATIENT BELONGINGS LIST DONE ,PATIENT BLOOD SUGAR CHECK ,RN AWARE OF BS RESULT ,PATIENT HAD SOME CRANBERRY JUICE AND SALTINES CRACKERS FOR SNACK .
[2024-05-23 23:58] LABS: Glucose, Whole Blood 140 mg/dL (60-115)
--- NOTE | 2024-05-24 00:15 | PC.NURSE ---
Pt assisted to bedside commode. Plan of care ongoing.
--- NOTE | 2024-05-24 00:16 | PC.NURSE ---
pt assisted back into bed. Plan of care ongoing.
[2024-05-24] MEDS: 0.9 % Sodium Chloride Flush 3 ML SYRINGE IVFLUSH ×3 (00:18→21:34)
[2024-05-24 01:56] VITALS: BP 119/59; PULSE 108; RESP 20; TEMP 36.9; O2SAT 98
--- NOTE | 2024-05-24 01:57 | MHC.EDTECH ---
PATIENT WAS ASSISTED UNTO BEDSIDE COMMODE ,VIOID AND WBACK TO BED ,VITALS TAKEN ,WARM BLANKET GIVEN .CALL GUILLEN WITHIN PATIENT REACH .
--- NOTE | 2024-05-24 03:21 | MHC.EDTECH ---
Patient rang to use commode ,void and Patient was assisted back to bed ,Patient drank sips of ice water .
[2024-05-24 05:38] VITALS: BP 117/69; PULSE 90; RESP 16; TEMP 36.6; O2SAT 99
--- NOTE | 2024-05-24 05:38 | MHC.EDTECH ---
Patient up to bedside commode ,void ,back to bed ,vitals taken ,Patient comfortable no apparent distress noted .call berry within Pt reach .
[2024-05-24 06:31] LABS: Anion Gap 13 (12-20); Blood Urea Nitrogen 10 mg/dL (9-16); Calcium 9.1 mg/dL (8.4-10.2); Carbon Dioxide 23 mmol/L (22-29); Chloride 100 mmol/L (96-108); Creatinine Clr Calc Pharmacy 69.2; Estimated Glomerular Filt Rate 47; Glucose Random 130 mg/dL (60-115); Potassium 3.6 mmol/L (3.3-5.1); Sodium 132 mmol/L (135-145)
[2024-05-24] MEDS: Piperacillin Sodium/Tazobactam 4.5 GM in 0.9 % Sodium Chloride 100 ML IV ×3 (06:40→17:03)
--- NOTE | 2024-05-24 06:41 | PC.NURSE ---
Pt medicated per jan. Plan of care ongoing.
[2024-05-24 07:29] LABS: Glucose, Whole Blood 122 mg/dL (60-115)
--- NOTE | 2024-05-24 07:30 | P.CONGS_ITS ---
History of Present Illness Consult details Consult date: 05/24/24 Narrative: 53-year-old female admitted via the ER from last night in view of she described as some persistent discomfort in the left flank along with some sense of being unwell and body malaise yesterday. She denies any fever or chills. She has had multiple urologic procedures. She had a staghorn calculus and had undergone stent placement a month ago. She had developed a left perinephric hematoma after 1 of her cystoscopy/ureteroscopy procedures. Repeat CT scan of her abdomen last night the fluid collection around the left kidney was smaller but there was note of some gas now and this abutted digital it was fascia adjacent to the descending colon. A fistula from the colon was mentioned as a differential so I was consulted The patient actually denies significant left lower quadrant pain. She describes discomfort on the left flank area. She does describe some loose stools since she had the left perinephric hematoma from last month. She denies any fever or chills. She does have multiple medical problems including chronic kidney disease, diabetes, asthma and morbid obesity Review of Systems 2 Constitutional: Constitutional: Denies chills, Reports fatigue, Denies fever(s) and Reports malaise Cardiovascular: Cardiovascular: Denies chest pain and Reports dyspnea on exertion Respiratory: Respiratory: Denies cough and Reports dyspnea on exertion Gastrointestinal: Gastrointestinal: Denies abdominal pain Genitourinary: Genitourinary: Denies hematuria and Denies difficulty voiding Endocrine: Endocrine: Reports fatigue PMFSH Past Medical History Medical History Hematoma of kidney Perinephric hematoma Asthma Benign paroxysmal positional vertigo Obesity Cataract CKD (chronic kidney disease) Depression HLD (hyperlipidemia) Diabetes HTN (hypertension) Sleep apnea History of kidney stones History of in vitro fertilization Family History Family History Father Cancer Mother Epilepsia Dementia Brother Drug abuse Bipolar 1 disorder Son No problems noted. Surgical History Surgical History H/O breast biopsy History of ureteroscopy Hx of ectopic History of open heart surgery Social History Social History Household Members: Spouse and Children Housing: House Do you presently have visiting nurse or other home services: No Alcohol intake: never Patient Tobacco Use Status: Never used Tobacco Advance Directives Date on File: 04/12/24 service: No Meds Allergies Allergy/AdvReac Type Severity Reaction Status Date / Time sulfamethoxazole Allergy Mild Hives Verified 06/06/24 12:54 [From Bactrim] trimethoprim [From Bactrim] Allergy Unknown Anaphylaxis Verified 06/06/24 12:54 FISH Allergy Unknown Anaphylaxis Uncoded 06/06/24 12:54 Active Medications: Current Medications Acetaminophen (Acetaminophen 325 Mg Tablet) 650 mg PO Q6H PRN PRN Reason: Pain, Mild (Pain Scale 1-3), fever or headache Calcium Carbonate (Calcium Carbonate 750 Mg Tab.Chew) 750 mg PO Q4H PRN PRN Reason: Heartburn Glucose (Glucose Gel 15 Gm Gel..Gram.) 15 gm PO Q15M PRN; Protocol PRN Reason: per Hypoglycemia Standing Ord. Dextrose (D10) 250 mls @ 750 mls/hr IV Q15M PRN; Protocol PRN Reason: per Hypoglycemia Standing Ord. Piperacillin Sod/Tazobactam (Sod 4.5 gm/ Sodium Chloride) 100 mls @ 200 mls/hr IV Q6H [facility] Last Infusion: 05/24/24 07:28 Dose: Infused Insulin Human Lispro (Insulin Lispro 100 Unit/Ml 3 Ml Vial) 0 unit SUBCUT QIDACHS [facility]; Protocol Last Admin: 05/24/24 07:28 Dose: Not Given Magnesium Hydroxide (Milk Of Magnesia 30 Ml Oral.Susp) 30 ml PO DAILY PRN PRN Reason: Constipation Melatonin (Melatonin 3 Mg Tablet) 6 mg PO BEDTIME PRN PRN Reason: Insomnia Morphine Sulfate (Morphine Sulfate 4 Mg/Ml Cartridge) 4 mg IVPUSH Q6H PRN; Protocol PRN Reason: Pain, Severe (Pain Scale 7-10) Sodium Chloride (0.9 % Sodium Chloride Flush 3 Ml Syringe) [address] [facility] Last Admin: 05/24/24 07:27 Dose: Not Given Home Medications ?Medication ?Instructions ?Recorded ?Confirmed ?Last Taken ?Type albuterol sulfate 90 mcg/actuation 2 puff inhalation Q6H PRN 09/17/23 06/06/24 Unknown History aerosol inhaler (Ventolin HFA) Shortness Of Breath Or Wheezing citalopram 40 mg tablet 40 mg PO DAILY 09/17/23 06/06/24 04/05/24 History lisinopril 20 mg tablet 20 mg PO DAILY 09/17/23 06/06/24 04/05/24 History meclizine 25 mg tablet 25 mg PO DAILY PRN Vertigo 09/17/23 06/06/24 04/05/24 History simvastatin 40 mg tablet 40 mg PO BEDTIME 09/17/23 06/06/24 04/05/24 History tirzepatide 7.5 mg/0.5 mL 7.5 mg subcut WE@0900 03/02/24 06/06/24 04/02/24 History subcutaneous pen injector (Edison) allopurinol 100 mg tablet 100 mg PO DAILY 05/24/24 06/06/24 Unknown History budesonide-formoterol HFA 160 2 puff inhalation BID 05/24/24 06/06/24 Unknown History mcg-4.5 mcg/actuation aerosol inhaler (Symbicort) ferrous sulfate 324 mg (65 mg 324 mg PO BID 05/24/24 06/06/24 Unknown History iron) tablet,delayed release glipizide 5 mg tablet, extended 5 mg PO DAILY 05/24/24 06/06/24 Unknown History release 24 hr montelukast 10 mg tablet 10 mg PO BEDTIME 05/24/24 06/06/24 Unknown History norethindrone acetate 5 mg tablet 5 mg PO DAILY 05/24/24 06/06/24 Unknown History ondansetron 4 mg disintegrating 4 mg PO Q8H PRN nausea/vomiting 05/24/24 06/06/24 Unknown History tablet Physical Exam 2 Vital Signs: Vital Signs: Last Vital Signs Temp 97.9 F 05/24/24 05:38 Pulse 90 05/24/24 05:38 Resp 16 05/24/24 05:38 BP 117/69 05/24/24 05:38 Pulse Ox 99 05/24/24 05:38 O2 Del Method Room Air 05/24/24 05:38 BMI result Body Mass Index 43.4 Const: Other: Morbidly obese, appears comfortable and does not seem to be in any distress Resp: Effort & Inspection: normal respiratory effort Cardio: Rate: regular rate GI: Other: Obese Palpation (GI): Soft to palpation, not firm, nontender and no guarding Results Labs 05/27/24 05:32 05/29/24 05:54 Labs: Abnormal lab results 05/23/24 05/23/24 05/23/24 Range/Units 13:58 20:07 23:30 WBC 15.6 H (4.8-10.8) X10*3/uL Hgb 10.0 L (12.0-16.0) g/dl Hct 32.4 L (37.0-47.0) % MCV 72.8 L (80.0-98.0) fL MCH 22.5 L (27.0-33.0) pg MCHC 30.9 L (31.0-35.0) g/dl RDW 19.4 H (11.0-16.0) % Plt Count 562 H D (160-400) X10*3/uL MPV 8.3 L (9.4-12.3) fL Abs Immat Gran (auto) 0.07 H (0.00-0.03) X10*3/uL Absolute Neuts (auto) 10.5 H (2.0-8.3) x10*3/uL Sodium 129 L (135-145) mmol/L Chloride 93 L (96-108) mmol/L POC Glucose 140 H (60-115) mg/dL Random Glucose 157 H (60-115) mg/dL Albumin 2.9 L (3.5-5.0) g/dL Urine Protein 30 (1+) H (Neg-Trace) mg/dL Urine Blood Trace H (Negative) Ur Leukocyte Esterase Moderate (2+) H (Negative) Urine RBC 3-5 H (0-2) /HPF Urine WBC 21-50 H (0-5) /HPF 05/24/24 05/24/24 Range/Units 05:50 07:23 WBC (4.8-10.8) X10*3/uL Hgb (12.0-16.0) g/dl Hct (37.0-47.0) % MCV (80.0-98.0) fL MCH (27.0-33.0) pg MCHC (31.0-35.0) g/dl RDW (11.0-16.0) % Plt Count (160-400) X10*3/uL MPV (9.4-12.3) fL Abs Immat Gran (auto) (0.00-0.03) X10*3/uL Absolute Neuts (auto) (2.0-8.3) x10*3/uL Sodium 132 L (135-145) mmol/L Chloride (96-108) mmol/L POC Glucose 122 H (60-115) mg/dL Random Glucose 130 H (60-115) mg/dL Albumin (3.5-5.0) g/dL Urine Protein (Neg-Trace) mg/dL Urine Blood (Negative) Ur Leukocyte Esterase (Negative) Urine RBC (0-2) /HPF Urine WBC (0-5) /HPF Short CBC 05/23/24 Range/Units 13:58 WBC 15.6 H (4.8-10.8) X10*3/uL Hgb 10.0 L (12.0-16.0) g/dl Hct 32.4 L (37.0-47.0) % Plt Count 562 H D (160-400) X10*3/uL BMP 05/23/24 05/24/24 13:58 05:50 Sodium 129 L 132 L Potassium 3.3 D 3.6 Chloride 93 L 100 Carbon Dioxide 24 23 BUN 13 10 Creatinine 1.30 1.21 Calcium 8.9 9.1 Liver Function 05/23/24 Range/Units 13:58 Total Bilirubin 0.5 (0.0-1.0) mg/dL AST 11 (5-31) U/L ALT 9 (0-31) U/L Alkaline Phosphatase 113 (39-117) U/L Albumin 2.9 L (3.5-5.0) g/dL Urine 05/23/24 Range/Units 20:07 Urine Color Yellow Urine Appearance Cloudy Urine pH 5.5 (5.0-9.0) Ur Specific [place] 1.015 (1.005-1.025) Urine Protein 30 (1+) H (Neg-Trace) mg/dL Urine Glucose (UA) Negative (Negative) mg/dL All other labs normal. Imaging Abdomen CT scan report/results: report reviewed and image reviewed CT scan - pelvis: report reviewed and image reviewed Additional studies: Laboratory Results WBC 9.8 X10*3/uL (4.8-10.8) 05/24/24 08:44 RBC 4.33 X10*6/uL (4.20-5.50) 05/24/24 08:44 Hgb 9.5 g/dl (12.0-16.0) L 05/24/24 08:44 Hct 31.9 % (37.0-47.0) L 05/24/24 08:44 MCV 73.7 fL (80.0-98.0) L 05/24/24 08:44 MCH 21.9 pg (27.0-33.0) L 05/24/24 08:44 MCHC 29.8 g/dl (31.0-35.0) L 05/24/24 08:44 RDW 19.6 % (11.0-16.0) H 05/24/24 08:44 Plt Count 443 X10*3/uL (160-400) H 05/24/24 08:44 MPV 8.3 fL (9.4-12.3) L 05/24/24 08:44 Immature Gran % (Auto) 0.5 % (0.0-0.4) H 05/24/24 08:44 Neut % (Auto) 70.9 % (45-73) 05/24/24 08:44 Lymph % (Auto) 22.3 % (20-40) 05/24/24 08:44 [place] % (Auto) 5.1 % (2-11) 05/24/24 08:44 Eos % (Auto) 0.9 % (0-4) 05/24/24 08:44 Baso % (Auto) 0.3 % (0-2) 05/24/24 08:44 Lymph # (Auto) 2.2 X10*3/uL (1.2-4.9) 05/24/24 08:44 [place] # (Auto) 0.5 X10*3/uL (0.1-1.2) 05/24/24 08:44 Eos # (Auto) 0.1 X10*3/uL (0.0-0.4) 05/24/24 08:44 Baso # (Auto) 0.0 X10*3/uL (0.0-0.2) 05/24/24 08:44 Abs Immat Gran (auto) 0.05 X10*3/uL (0.00-0.03) H 05/24/24 08:44 Absolute Neuts (auto) 6.9 x10*3/uL (2.0-8.3) 05/24/24 08:44 Absolute Nucleated RBC 0.000 X10*3/uL (0.0-0.012) 05/24/24 08:44 Nucleated RBC % (auto) 0.0 /100WBC (0.0-0.2) 05/24/24 08:44 Sodium 132 mmol/L (135-145) L 05/24/24 05:50 Potassium 3.6 mmol/L (3.3-5.1) 05/24/24 05:50 Chloride 100 mmol/L (96-108) 05/24/24 05:50 Carbon Dioxide 23 mmol/L (22-29) 05/24/24 05:50 Anion Gap 13 (12-20) 05/24/24 05:50 BUN 10 mg/dL (9-16) 05/24/24 05:50 Creatinine 1.21 mg/dL (0.5-1.4) 05/24/24 05:50 Estim Creat Clear Calc 69.2 05/24/24 05:50 Estimated GFR 47 05/24/24 05:50 POC Glucose 122 mg/dL (60-115) H 05/24/24 07:23 Random Glucose 130 mg/dL (60-115) H 05/24/24 05:50 Lactic Acid 0.9 mmol/L (0.5-2.0) 05/23/24 21:03 Calcium 9.1 mg/dL (8.4-10.2) 05/24/24 05:50 Magnesium 1.6 mg/dL (1.6-2.6) 05/23/24 13:58 Total Bilirubin 0.5 mg/dL (0.0-1.0) 05/23/24 13:58 AST 11 U/L (5-31) 05/23/24 13:58 ALT 9 U/L (0-31) 05/23/24 13:58 Alkaline Phosphatase 113 U/L (39-117) 05/23/24 13:58 C-Reactive Protein 12.23 mg/dL (< or = 0.50) H 05/24/24 05:50 Total Protein 7.9 g/dL (6.5-8.0) 05/23/24 13:58 Albumin 2.9 g/dL (3.5-5.0) L 05/23/24 13:58 Urine Color Yellow 05/23/24 20:07 Urine Appearance Cloudy 05/23/24 20:07 Urine pH 5.5 (5.0-9.0) 05/23/24 20:07 Ur Specific [place] 1.015 (1.005-1.025) 05/23/24 20:07 Urine Protein 30 (1+) mg/dL (Neg-Trace) H 05/23/24 20:07 Urine Glucose (UA) Negative mg/dL (Negative) 05/23/24 20:07 Urine Ketones Trace mg/dL (Negative) 05/23/24 20:07 Urine Blood Trace (Negative) H 05/23/24 20:07 Urine Nitrite Negative (Negative) 05/23/24 20:07 Ur Leukocyte Esterase Moderate (2+) (Negative) H 05/23/24 20:07 Urine RBC 3-5 /HPF (0-2) H 05/23/24 20:07 Urine WBC 21-50 /HPF (0-5) H 05/23/24 20:07 Ur Squamous Epith Cells 11-20 /HPF (0-2) 05/23/24 20:07 Urine Bacteria Trace (None Seen) 05/23/24 20:07 Hyaline Casts 3-5 /LPF (0-2) 05/23/24 20:07 Influenza Type A (PCR) NEGATIVE (Negative) 05/23/24 13:58 Influenza Type B (PCR) NEGATIVE (Negative) 05/23/24 13:58 RSV RNA Qual (PCR) NEGATIVE (Negative) 05/23/24 13:58 SARS-CoV-2 RNA (RT-PCR) NEGATIVE (Negative) 05/23/24 13:58 Impressions Abdomen/Pelvis CT 05/23/24 20:34 IMPRESSION: 1. Left ureteric stent in place. There is a large complex collection along the lateral aspect of the left kidney. Although the collection is decreased in size from the prior 04/19/2024 study there is now gas seen within the collection which does abut the thickened Gerota's fossa and adjacent descending colon. Pericolonic fistula to this area cannot be excluded. 2. Underlying renal mass lesion would be difficult to assess on this noncontrast study. 3. Fluid collection in the region of the pancreatic tail has decreased in size from the prior study. I do not appreciate any gas bubbles within the peripancreatic collection although this is in close proximity to the perinephric collection. This critical result was discussed with Dr Burns at 05/23/2024 9:55 PM and it was ascertained that the content and urgency of the report was understood at the time of direct communication. Assessment and Plan (1) Perinephric abscess: Status: Acute Her CAT scan shows this large collection along the lateral aspect of the left kidney increased in size compared to last month but with note of gas within the collection. This is likely due to the hematoma with associated abscess. This unlikely that this represents a fistula to the left colon. She may benefit from having IR drainage of this fluid collection with cultures. Her abdominal exam is very benign. She has never had any history of diverticular disease. She probably should have a colonoscopy down the line as well to examine her entire colon especially the left side. We will follow along while she has in the hospital. (2) Hematoma of kidney: Qualifiers: Encounter type: subsequent encounter Laterality: left Qualified Code(s): S37.012D - Minor contusion of left kidney, subsequent encounter Status: Acute Procedures Date of Service Date of Service: 06/06/24
[2024-05-24 08:07] LABS: C Reactive Protein 12.23 mg/dL (< or = 0.50)
[2024-05-24 09:02] LABS: Basophils Percent Auto 0.3 % (0-2); Eosinophils Absolute Auto 0.1 X10*3/uL (0.0-0.4); Eosinophils Percent Auto 0.9 % (0-4); Hematocrit 31.9 % (37.0-47.0); Hemoglobin 9.5 g/dl (12.0-16.0); Imm Gran Abs Auto 0.05 X10*3/uL (0.00-0.03); Imm Gran Pct Auto 0.5 % (0.0-0.4); Lymphocytes Absolute Auto 2.2 X10*3/uL (1.2-4.9); Lymphocytes Percent Auto 22.3 % (20-40); Mean Corpuscular HGB Conc 29.8 g/dl (31.0-35.0); Mean Corpuscular Hemoglobin 21.9 pg (27.0-33.0); Mean Corpuscular Volume 73.7 fL (80.0-98.0); Mean Platelet Volume 8.3 fL (9.4-12.3); Monocytes Absolute Auto 0.5 X10*3/uL (0.1-1.2); Monocytes Percent Auto 5.1 % (2-11); Neutrophils Absolute Auto 6.9 x10*3/uL (2.0-8.3); Neutrophils Percent Auto 70.9 % (45-73); Platelet Count 443 X10*3/uL (160-400); Red Blood Count 4.33 X10*6/uL (4.20-5.50); Red Cell Distribution Width 19.6 % (11.0-16.0); White Blood Count 9.8 X10*3/uL (4.8-10.8)
[2024-05-24 10:05] VITALS: BP 115/62; PULSE 92; RESP 17; TEMP 36.6; O2SAT 98
--- NOTE | 2024-05-24 10:23 | PHA.MEDREC ---
Pharmacy Consult ? Medication Reconciliation Pharmacy has completed the medication reconciliation. Spoke to patient to confirm med list. Patient states she has not took any of her medication in over a month. I confirmed claims and left on med list. I messaged Dr Gamble to let him know.
[2024-05-24 11:30] LABS: Glucose, Whole Blood 143 mg/dL (60-115)
--- NOTE | 2024-05-24 12:28 | PM.UROCN ---
History of Present Illness Consult details Consult date: 03/03/24 Narrative: h/o Left staghorn calculus. Gabriela is a 53-year-old female Comobidity, diabetes, morbid obesity. She has a history of left staghorn calculus. Due to the size of the staghorn calculus she had staged ureteroscopy. She is status post ureteroscopy on 12/28/2023 stent was placed at that time. She had repeat ureteroscopy on 02/08/2024 and there was residual stone. The patient presented to the emergency room on 03/02/2024 due to pain and fever CT imaging was notable for a subcapsular hematoma, a ureteral stent was placed on 03/03/2024. The patient was hospitalized again in March. CTA was performed on 04/08/24 without active extravasation or pseudoaneurysm. CT at that time also noted a 2nd hematoma. The patient was recently evaluated on 04/19/24 in the emergency room with complaints of pain. Workup at that time was negative for infection. Currently She presented with left flank pain and reported fever. CT imaging notes subcapsular hematoma has decreased in size but shows air in the collection, the patient has been evaluated by general surgery. Plan is for IR drainage. Review of Systems Review of Systems: 10 point ROS negative other than stated in HPI PMFSH Past Medical History Medical History Hematoma of kidney Perinephric hematoma Asthma Benign paroxysmal positional vertigo Obesity Cataract CKD (chronic kidney disease) Depression HLD (hyperlipidemia) Diabetes HTN (hypertension) Sleep apnea History of kidney stones History of in vitro fertilization Family History Family History Father Cancer Mother Epilepsia Dementia Brother Drug abuse Bipolar 1 disorder Son No problems noted. Surgical History Surgical History H/O breast biopsy History of ureteroscopy Hx of ectopic History of open heart surgery Social History Social History Household Members: Spouse and Children Housing: House Do you presently have visiting nurse or other home services: No Alcohol intake: never Patient Tobacco Use Status: Never used Tobacco Advance Directives Date on File: 04/12/24 service: No Meds Allergies Allergy/AdvReac Type Severity Reaction Status Date / Time sulfamethoxazole Allergy Mild Hives Verified 05/23/24 13:01 [From Bactrim] trimethoprim [From Bactrim] Allergy Unknown Anaphylaxis Verified 05/23/24 13:01 FISH Allergy Unknown Anaphylaxis Uncoded 05/23/24 13:01 Active Medications: Current Medications Acetaminophen (Acetaminophen 325 Mg Tablet) 650 mg PO Q6H PRN PRN Reason: Pain, Mild (Pain Scale 1-3), fever or headache Albuterol Sulfate (Albuterol Sulfate 90 Mcg 8 Gm Inhaler) 2 puff INHALE Q6H PRN PRN Reason: Shortness Of Breath Or Wheezing Allopurinol (Allopurinol 100 Mg Tablet) 100 mg PO DAILY [facility] Atorvastatin Calcium (Atorvastatin Calcium 20 Mg Tablet) 20 mg PO BEDTIME [facility] Calcium Carbonate (Calcium Carbonate 750 Mg Tab.Chew) 750 mg PO Q4H PRN PRN Reason: Heartburn Escitalopram Oxalate (Escitalopram Oxalate 20 Mg Tablet) 20 mg PO DAILY [facility] Ferrous Sulfate (Ferrous Sulfate 324 Mg Tablet.Dr) 324 mg PO BID [facility] Fluticasone/Vilanterol (Fluticasone/Vilanterol 200/25 Blst.W.Dev) 1 puff INHALE RDAILY [facility] Glucose (Glucose Gel 15 Gm Gel..Gram.) 15 gm PO Q15M PRN; Protocol PRN Reason: per Hypoglycemia Standing Ord. Piperacillin Sod/Tazobactam (Sod 4.5 gm/ Sodium Chloride) 100 mls @ 200 mls/hr IV Q6H [facility] Last Admin: 05/24/24 12:02 Dose: 100 mls/hr Dextrose (D10) 250 mls @ 750 mls/hr IV Q15M PRN; Protocol PRN Reason: per Hypoglycemia Standing Ord. Insulin Human Lispro (Insulin Lispro 100 Unit/Ml 3 Ml Vial) 0 unit SUBCUT QIDACHS [facility]; Protocol Last Admin: 05/24/24 11:35 Dose: Not Given Lisinopril (Lisinopril 20 Mg Tablet) 20 mg PO DAILY [facility]; Protocol Magnesium Hydroxide (Milk Of Magnesia 30 Ml Oral.Susp) 30 ml PO DAILY PRN PRN Reason: Constipation Meclizine HCl (Meclizine Hcl 25 Mg Tablet) 25 mg PO DAILY PRN PRN Reason: Vertigo Melatonin (Melatonin 3 Mg Tablet) 6 mg PO BEDTIME PRN PRN Reason: Insomnia Montelukast Sodium (Montelukast Sodium 10 Mg Tablet) 10 mg PO BEDTIME [facility] Morphine Sulfate (Morphine Sulfate 4 Mg/Ml Cartridge) 4 mg IVPUSH Q6H PRN; Protocol PRN Reason: Pain, Severe (Pain Scale 7-10) Non-Formulary Medication (Norethindrone Acetate) 5 mg PO DAILY [facility] Non-Formulary Medication (Potassium Citrate) 20 meq PO BID [facility] Ondansetron HCl (Ondansetron Hcl 4 Mg/2 Ml Vial) 4 mg IVPUSH Q4H PRN PRN Reason: Nausea and Vomiting Sodium Chloride (0.9 % Sodium Chloride Flush 3 Ml Syringe) 3 ml IVFLUSH QSHIFT [facility] Last Admin: 05/24/24 07:27 Dose: Not Given Home Medications ?Medication ?Instructions ?Recorded ?Confirmed ?Last Taken ?Type albuterol sulfate 90 mcg/actuation 2 puff inhalation Q6H PRN 09/17/23 05/24/24 Unknown History aerosol inhaler (Ventolin HFA) Shortness Of Breath Or Wheezing citalopram 40 mg tablet 40 mg PO DAILY 09/17/23 05/24/24 04/05/24 History lisinopril 20 mg tablet 20 mg PO DAILY 09/17/23 05/24/24 04/05/24 History meclizine 25 mg tablet 25 mg PO DAILY PRN Vertigo 09/17/23 05/24/24 04/05/24 History simvastatin 40 mg tablet 40 mg PO BEDTIME 09/17/23 05/24/24 04/05/24 History tirzepatide 7.5 mg/0.5 mL 7.5 mg subcut WE@0900 03/02/24 05/24/24 04/02/24 History subcutaneous pen injector (Mounjaro) allopurinol 100 mg tablet 100 mg PO DAILY 05/24/24 05/24/24 Unknown History budesonide-formoterol HFA 160 2 puff inhalation BID 05/24/24 05/24/24 Unknown History mcg-4.5 mcg/actuation aerosol inhaler (Symbicort) ferrous sulfate 324 mg (65 mg 324 mg PO BID 05/24/24 05/24/24 Unknown History iron) tablet,delayed release glipizide 5 mg tablet, extended 5 mg PO DAILY 05/24/24 05/24/24 Unknown History release 24 hr metformin 1,000 mg tablet 1,000 mg PO BID 05/24/24 05/24/24 Unknown History montelukast 10 mg tablet 10 mg PO BEDTIME 05/24/24 05/24/24 Unknown History norethindrone acetate 5 mg tablet 5 mg PO DAILY 05/24/24 05/24/24 Unknown History ondansetron 4 mg disintegrating 4 mg PO Q8H PRN nausea/vomiting 05/24/24 05/24/24 Unknown History tablet potassium citrate 10 mEq (1,080 20 meq PO BID 05/24/24 05/24/24 Unknown History mg) tablet,extended release Physical Exam Vital Signs: Vital Signs: Last Vital Signs Temp 97.8 F 05/24/24 10:05 Pulse 92 05/24/24 10:05 Resp 17 05/24/24 10:05 BP 115/62 05/24/24 10:05 Pulse Ox 98 05/24/24 10:05 O2 Del Method Room Air 05/24/24 10:05 BMI result Body Mass Index 43.4 Const: General: cooperative, healthy appearing and no acute distress Orientation/consciousness: patient oriented x3 HEENT: Head: Yes normal to inspection, Yes normocephalic and Yes atraumatic Eyes: Conjunctivae: conjunctivae normal Neck: Neck: Yes normal visual inspection and Yes trachea midline Chest: Chest palpation & inspection: normal inspection of the chest Resp: Effort & Inspection: normal respiratory effort Cardio: Rate: regular rate GI: Inspection: Yes normal to inspection Palpation (GI): Soft to palpation Skin: General skin exam: no rashes or lesions noted Neuro: General: patient oriented x3 Extrem: General: No edema Psych: Appearance: grossly normal Results Labs 05/25/24 05:58 05/24/24 05:50 Labs: Abnormal lab results 05/23/24 05/23/24 05/23/24 Range/Units 13:58 20:07 23:30 WBC 15.6 H (4.8-10.8) X10*3/uL Hgb 10.0 L (12.0-16.0) g/dl Hct 32.4 L (37.0-47.0) % MCV 72.8 L (80.0-98.0) fL MCH 22.5 L (27.0-33.0) pg MCHC 30.9 L (31.0-35.0) g/dl RDW 19.4 H (11.0-16.0) % Plt Count 562 H D (160-400) X10*3/uL MPV 8.3 L (9.4-12.3) fL Immature Gran % (Auto) (0.0-0.4) % Abs Immat Gran (auto) 0.07 H (0.00-0.03) X10*3/uL Absolute Neuts (auto) 10.5 H (2.0-8.3) x10*3/uL Sodium 129 L (135-145) mmol/L Chloride 93 L (96-108) mmol/L POC Glucose 140 H (60-115) mg/dL Random Glucose 157 H (60-115) mg/dL C-Reactive Protein (< or = 0.50) mg/dL Albumin 2.9 L (3.5-5.0) g/dL Urine Protein 30 (1+) H (Neg-Trace) mg/dL Urine Blood Trace H (Negative) Ur Leukocyte Esterase Moderate (2+) H (Negative) Urine RBC 3-5 H (0-2) /HPF Urine WBC 21-50 H (0-5) /HPF 05/24/24 05/24/24 05/24/24 Range/Units 05:50 07:23 08:44 WBC (4.8-10.8) X10*3/uL Hgb 9.5 L (12.0-16.0) g/dl Hct 31.9 L (37.0-47.0) % MCV 73.7 L (80.0-98.0) fL MCH 21.9 L (27.0-33.0) pg MCHC 29.8 L (31.0-35.0) g/dl RDW 19.6 H (11.0-16.0) % Plt Count 443 H (160-400) X10*3/uL MPV 8.3 L (9.4-12.3) fL Immature Gran % (Auto) 0.5 H (0.0-0.4) % Abs Immat Gran (auto) 0.05 H (0.00-0.03) X10*3/uL Absolute Neuts (auto) (2.0-8.3) x10*3/uL Sodium 132 L (135-145) mmol/L Chloride (96-108) mmol/L POC Glucose 122 H (60-115) mg/dL Random Glucose 130 H (60-115) mg/dL C-Reactive Protein 12.23 H (< or = 0.50) mg/dL Albumin (3.5-5.0) g/dL Urine Protein (Neg-Trace) mg/dL Urine Blood (Negative) Ur Leukocyte Esterase (Negative) Urine RBC (0-2) /HPF Urine WBC (0-5) /HPF 05/24/24 Range/Units 11:24 WBC (4.8-10.8) X10*3/uL Hgb (12.0-16.0) g/dl Hct (37.0-47.0) % MCV (80.0-98.0) fL MCH (27.0-33.0) pg MCHC (31.0-35.0) g/dl RDW (11.0-16.0) % Plt Count (160-400) X10*3/uL MPV (9.4-12.3) fL Immature Gran % (Auto) (0.0-0.4) % Abs Immat Gran (auto) (0.00-0.03) X10*3/uL Absolute Neuts (auto) (2.0-8.3) x10*3/uL Sodium (135-145) mmol/L Chloride (96-108) mmol/L POC Glucose 143 H (60-115) mg/dL Random Glucose (60-115) mg/dL C-Reactive Protein (< or = 0.50) mg/dL Albumin (3.5-5.0) g/dL Urine Protein (Neg-Trace) mg/dL Urine Blood (Negative) Ur Leukocyte Esterase (Negative) Urine RBC (0-2) /HPF Urine WBC (0-5) /HPF Short CBC 05/23/24 05/24/24 Range/Units 13:58 08:44 WBC 15.6 H 9.8 (4.8-10.8) X10*3/uL Hgb 10.0 L 9.5 L (12.0-16.0) g/dl Hct 32.4 L 31.9 L (37.0-47.0) % Plt Count 562 H D 443 H (160-400) X10*3/uL BMP 05/23/24 05/24/24 13:58 05:50 Sodium 129 L 132 L Potassium 3.3 D 3.6 Chloride 93 L 100 Carbon Dioxide 24 23 BUN 13 10 Creatinine 1.30 1.21 Calcium 8.9 9.1 Liver Function 05/23/24 Range/Units 13:58 Total Bilirubin 0.5 (0.0-1.0) mg/dL AST 11 (5-31) U/L ALT 9 (0-31) U/L Alkaline Phosphatase 113 (39-117) U/L Albumin 2.9 L (3.5-5.0) g/dL Urine 05/23/24 Range/Units 20:07 Urine Color Yellow Urine Appearance Cloudy Urine pH 5.5 (5.0-9.0) Ur Specific [place] 1.015 (1.005-1.025) Urine Protein 30 (1+) H (Neg-Trace) mg/dL Urine Glucose (UA) Negative (Negative) mg/dL Imaging CT scan - pelvis: report reviewed and image reviewed Abdominal ultrasound report/results: report reviewed and image reviewed Additional studies: Date of Service: 05/23/24 EXAMINATION: CT ABDOMEN AND PELVIS WITHOUT CONTRAST CLINICAL INFORMATION: Left flank pain with history of stone. COMPARISON: 04/19/2024. TECHNIQUE: Multidetector volumetric imaging was performed from the superior aspect of the liver through the pubic symphysis without contrast per renal stone protocol. Sagittal and coronal reformatted images were obtained on the technologist workstation. This CT examination was performed using dose optimization techniques as appropriate, variously including the following: *Automated exposure control *Adjustment of mA and/or kV according to patient size (this includes techniques or standardized protocols for targeted exams where dose is matched to indication/reason for exam; i.e. extremities or head) *Use of iterative reconstruction technique DLP: 1035 mGy-cm. FINDINGS: LUNG BASES: The visualized lung bases are unremarkable. LIVER, GALLBLADDER, BILIARY TREE: The non-contrast liver is normal in size, shape, and attenuation. No focal hepatic lesion or biliary ductal dilatation is present. The gallbladder is unremarkable with no evidence of radiopaque gallstones, gallbladder wall thickening, or obvious pericholecystic inflammatory changes. PANCREAS: The previously noted collection in the region of the pancreatic tail has slightly decreased in size from the previous study. Currently this measures 7.5 cm in maximal diameter and previously measured 11.2 cm in maximal diameter. Pancreas difficult to assess otherwise on this noncontrast study. SPLEEN: Unremarkable. ADRENAL GLANDS: Unremarkable. KIDNEYS AND URETERS: There is a large complex collection along the lateral aspect of the left kidney. Although the collection is decreased in size there is gas seen within the collection which does directly abut the adjacent descending colon. Pericolonic fistula to this area cannot be excluded. Underlying renal mass lesion would be difficult to assess on this noncontrast study. A left ureteric stent is seen within the decompressed renal pelvis extending to the bladder. Contralateral right kidney demonstrates an upper pole exophytic cyst but no obstructive changes to the right kidney. BLADDER: Decompressed and unremarkable with the inferior aspect of the ureteric stent seen in the bladder lumen GASTROINTESTINAL TRACT: Colon is mostly decompressed. Again there is obscuration of the fat plane between the descending colon and the adjacent thickened Gerota's fascia and pericolonic collection with soft tissue density and air extending from the colon to the collection concerning for a colonic fistula. I do not appreciate any gas within the peripancreatic collection although it is in close proximity to the upper aspect of the thickened Gerota's fascia ABDOMINAL WALL: No significant hernia is appreciated. LYMPHOVASCULAR STRUCTURES: No lymphadenopathy. The aorta is unremarkable.. PELVIC VISCERA: Unremarkable. OSSEUS STRUCTURES: Mild degenerative changes in the spine IMPRESSION: 1. Left ureteric stent in place. There is a large complex collection along the lateral aspect of the left kidney. Although the collection is decreased in size from the prior 04/19/2024 study there is now gas seen within the collection which does abut the thickened Gerota's fossa and adjacent descending colon. Pericolonic fistula to this area cannot be excluded. 2. Underlying renal mass lesion would be difficult to assess on this noncontrast study. 3. Fluid collection in the region of the pancreatic tail has decreased in size from the prior study. I do not appreciate any gas bubbles within the peripancreatic collection although this is in close proximity to the perinephric collection. Assessment and Plan (1) Perinephric abscess: Status: Acute (2) Hematoma of kidney: Qualifiers: Encounter type: subsequent encounter Laterality: left Qualified Code(s): S37.012D - Minor contusion of left kidney, subsequent encounter Status: Acute Plan Clinically improving, WBC decreased IR to drain collection tomorrow NPO after MN Procedures Date of Service Date of Service: 05/25/24
--- NOTE | 2024-05-24 12:33 | MHC.CM.PN ---
CM MET WITH PT AT BEDSIDE. PT LIVES WITH FAMILY. INDEPENDENT AND EMPLOYED F/T. HCP ON FILE. PCP DR. GALVEZ DP: HOME, NO SERVICES IS THE GOAL. PT HAS OWN RIDE HOME. CM WILL CONTINUE TO FOLLOW FOR ANY CHANGE TO DC PLAN.
[2024-05-24] MEDS: Albuterol Sulfate 90 MCG 8 GM INHALER 2 PUFF INHALE (13:10)
--- NOTE | 2024-05-24 13:10 | P.PNIM_ITS ---
Subjective Subjective Date of Service: 05/24/24 Interval History: c/o L flank pain chills resolved no hematuria Review of Systems Review of Systems: Yes all other systems are reviewed and are negative Physical Exam 2 Vital Signs: Vital Signs: Last Vital Signs Temp 97.8 F 05/24/24 10:05 Pulse 92 05/24/24 10:05 Resp 17 05/24/24 10:05 BP 115/62 05/24/24 10:05 Pulse Ox 98 05/24/24 10:05 O2 Del Method Room Air 05/24/24 10:05 BMI result Body Mass Index 43.4 Gen: in no acute distress HEENT: sclera anicteric, moist mucus membranes Neck: supple Lungs: clear to auscultation bilaterally Heart: regular rate and rhythm, no murmurs Abd: soft, non-tender, non-distended, obese : L flank tenderness Ext: no edema Skin: warm/well-perfused Neuro: alert and oriented x3, no focal findings Psych: appropriate affect Objective Data Active Medications Acetaminophen (Acetaminophen 325 Mg Tablet) 650 mg PO Q6H PRN PRN Reason: Pain, Mild (Pain Scale 1-3), fever or headache Albuterol Sulfate (Albuterol Sulfate 90 Mcg 8 Gm Inhaler) 2 puff INHALE Q6H PRN PRN Reason: Shortness Of Breath Or Wheezing Allopurinol (Allopurinol 100 Mg Tablet) 100 mg PO DAILY [facility] Atorvastatin Calcium (Atorvastatin Calcium 20 Mg Tablet) 20 mg PO BEDTIME [facility] Calcium Carbonate (Calcium Carbonate 750 Mg Tab.Chew) 750 mg PO Q4H PRN PRN Reason: Heartburn Escitalopram Oxalate (Escitalopram Oxalate 20 Mg Tablet) 20 mg PO DAILY [facility] Ferrous Sulfate (Ferrous Sulfate 324 Mg Tablet.Dr) 324 mg PO BID [facility] Fluticasone/Vilanterol (Fluticasone/Vilanterol 200/25 Blst.W.Dev) 1 puff INHALE RDAILY [facility] Glucose (Glucose Gel 15 Gm Gel..Gram.) 15 gm PO Q15M PRN; Protocol PRN Reason: per Hypoglycemia Standing Ord. Piperacillin Sod/Tazobactam (Sod 4.5 gm/ Sodium Chloride) 100 mls @ 200 mls/hr IV Q6H [facility] Last Infusion: 05/24/24 13:04 Dose: Infused Documented By: YURIDIA Dextrose (D10) 250 mls @ 750 mls/hr IV Q15M PRN; Protocol PRN Reason: per Hypoglycemia Standing Ord. Insulin Human Lispro (Insulin Lispro 100 Unit/Ml 3 Ml Vial) 0 unit SUBCUT QIDACHS [facility]; Protocol Last Admin: 05/24/24 11:35 Dose: Not Given Documented By: YURIDIA Non-Admin Reason: No Insulin Coverage Lisinopril (Lisinopril 20 Mg Tablet) 20 mg PO DAILY [facility]; Protocol Magnesium Hydroxide (Milk Of Magnesia 30 Ml Oral.Susp) 30 ml PO DAILY PRN PRN Reason: Constipation Meclizine HCl (Meclizine Hcl 25 Mg Tablet) 25 mg PO DAILY PRN PRN Reason: Vertigo Melatonin (Melatonin 3 Mg Tablet) 6 mg PO BEDTIME PRN PRN Reason: Insomnia Montelukast Sodium (Montelukast Sodium 10 Mg Tablet) 10 mg PO BEDTIME [facility] Morphine Sulfate (Morphine Sulfate 4 Mg/Ml Cartridge) 4 mg IVPUSH Q6H PRN; Protocol PRN Reason: Pain, Severe (Pain Scale 7-10) Ondansetron HCl (Ondansetron Hcl 4 Mg/2 Ml Vial) 4 mg IVPUSH Q4H PRN PRN Reason: Nausea and Vomiting Sodium Chloride (0.9 % Sodium Chloride Flush 3 Ml Syringe) 3 ml IVFLUSH QSHIFT [facility] Last Admin: 05/24/24 07:27 Dose: Not Given Documented By: SNOW Non-Admin Reason: IV Running Labs 05/24/24 08:44 05/24/24 05:50 Labs: Laboratory Results - last 24 hr 05/23/24 05/23/24 05/23/24 13:58 20:07 21:03 MCV 72.8 L MCH 22.5 L MCHC 30.9 L RDW 19.4 H Plt Count 562 H D MPV 8.3 L Immature Gran % (Auto) 0.4 Neut % (Auto) 67.4 Lymph % (Auto) 26.7 [place] % (Auto) 4.9 Eos % (Auto) 0.3 Baso % (Auto) 0.3 Lymph # (Auto) 4.2 [place] # (Auto) 0.8 Eos # (Auto) 0.1 Baso # (Auto) 0.0 Abs Immat Gran (auto) 0.07 H Absolute Neuts (auto) 10.5 H Absolute Nucleated RBC 0.000 Nucleated RBC % (auto) 0.0 Anion Gap 15 Estim Creat Clear Calc 64.4 Estimated GFR 43 POC Glucose Random Glucose 157 H Lactic Acid 0.9 Calcium 8.9 Magnesium 1.6 Total Bilirubin 0.5 AST 11 ALT 9 Alkaline Phosphatase 113 C-Reactive Protein Total Protein 7.9 Albumin 2.9 L Urine Color Yellow Urine Appearance Cloudy Urine pH 5.5 Ur Specific [place] 1.015 Urine Protein 30 (1+) H Urine Glucose (UA) Negative Urine Ketones Trace Urine Blood Trace H Urine Nitrite Negative Ur Leukocyte Esterase Moderate (2+) H Urine RBC 3-5 H Urine WBC 21-50 H Ur Squamous Epith Cells 11-20 Urine Bacteria Trace Hyaline Casts 3-5 Influenza Type A (PCR) NEGATIVE Influenza Type B (PCR) NEGATIVE RSV RNA Qual (PCR) NEGATIVE SARS-CoV-2 RNA (RT-PCR) NEGATIVE 05/23/24 05/24/24 05/24/24 23:30 05:50 07:23 MCV MCH MCHC RDW Plt Count MPV Immature Gran % (Auto) Neut % (Auto) Lymph % (Auto) [place] % (Auto) Eos % (Auto) Baso % (Auto) Lymph # (Auto) [place] # (Auto) Eos # (Auto) Baso # (Auto) Abs Immat Gran (auto) Absolute Neuts (auto) Absolute Nucleated RBC Nucleated RBC % (auto) Anion Gap 13 Estim Creat Clear Calc 69.2 Estimated GFR 47 POC Glucose 140 H 122 H Random Glucose 130 H Lactic Acid Calcium 9.1 Magnesium Total Bilirubin AST ALT Alkaline Phosphatase C-Reactive Protein 12.23 H Total Protein Albumin Urine Color Urine Appearance Urine pH Ur Specific [place] Urine Protein Urine Glucose (UA) Urine Ketones Urine Blood Urine Nitrite Ur Leukocyte Esterase Urine RBC Urine WBC Ur Squamous Epith Cells Urine Bacteria Hyaline Casts Influenza Type A (PCR) Influenza Type B (PCR) RSV RNA Qual (PCR) SARS-CoV-2 RNA (RT-PCR) 05/24/24 05/24/24 08:44 11:24 MCV 73.7 L MCH 21.9 L MCHC 29.8 L RDW 19.6 H Plt Count 443 H MPV 8.3 L Immature Gran % (Auto) 0.5 H Neut % (Auto) 70.9 Lymph % (Auto) 22.3 [place] % (Auto) 5.1 Eos % (Auto) 0.9 Baso % (Auto) 0.3 Lymph # (Auto) 2.2 [place] # (Auto) 0.5 Eos # (Auto) 0.1 Baso # (Auto) 0.0 Abs Immat Gran (auto) 0.05 H Absolute Neuts (auto) 6.9 Absolute Nucleated RBC 0.000 Nucleated RBC % (auto) 0.0 Anion Gap Estim Creat Clear Calc Estimated GFR POC Glucose 143 H Random Glucose Lactic Acid Calcium Magnesium Total Bilirubin AST ALT Alkaline Phosphatase C-Reactive Protein Total Protein Albumin Urine Color Urine Appearance Urine pH Ur Specific [place] Urine Protein Urine Glucose (UA) Urine Ketones Urine Blood Urine Nitrite Ur Leukocyte Esterase Urine RBC Urine WBC Ur Squamous Epith Cells Urine Bacteria Hyaline Casts Influenza Type A (PCR) Influenza Type B (PCR) RSV RNA Qual (PCR) SARS-CoV-2 RNA (RT-PCR) Microbiology Microbiology Results: Microbiology 05/23/24 Unknown Urine Culture - Preliminary Urine clean catch - Clean Catch Midstream Culture too young to evaluate. Assessment and Plan (1) Perinephric abscess: Status: Acute (2) Hematoma of kidney: Status: Acute Plan d2 53yo F with hx staghorn calculus s/p ureteral stenting complicated by subcapsular hematoma, DM2, obesity, HTN, asthma, HLD presenting with chills and flank pain, found to have complex fluid collection along the lateral aspect of the left kidney with gas perinephric fluid collection - per Gen Surg, doubt fistula to colon; recommend IR-guided aspiration. Urology consult pending. prn IV morphine complicated UTI - pip-juan antonio d2, follow BCx + UCx DM2 - correction-dose lispro, DM diet HTN - continue lisinopril asthma - continue montelukast, Symbicort HLD - continue statin morbid obesity - diet/exercise counseling VTE ppx - SCDs dispo - TBD In my clinical judgment, the patient requires continued inpatient hospitalization for the following reasons: expert consultation, IV ABX Total time managing care of this patient today: 40 minutes. Quality Stroke Does the patient have a stroke diagnosis?: No VTE Prior VTE?: No VTE Risk Level:: Medical - moderate - high VTE Device Contraindication: N/A - Device Ordered VTE Drug Contraindication: Treatment Not Indicated
[2024-05-24 15:42] VITALS: BP 127/69; PULSE 89; RESP 18; TEMP 36.3; O2SAT 100
[2024-05-24 16:23] LABS: Glucose, Whole Blood 165 mg/dL (60-115)
[2024-05-24] MEDS: Insulin Lispro 100 UNIT/ML 3 ML VIAL SUBCUT ×2 (17:02→21:33)
[2024-05-24 19:04] VITALS: BP 139/77; PULSE 98; RESP 18; TEMP 36.2; O2SAT 97
[2024-05-24 20:16] LABS: Glucose, Whole Blood 189 mg/dL (60-115)
[2024-05-24] MEDS: Ferrous Sulfate 324 MG TABLET.DR PO (21:33)
[2024-05-24] MEDS: Atorvastatin Calcium 20 MG TABLET PO (21:33)
[2024-05-24] MEDS: Montelukast Sodium 10 MG TABLET PO (21:33)
[2024-05-25] MEDS: Piperacillin Sodium/Tazobactam 4.5 GM in 0.9 % Sodium Chloride 100 ML IV ×5 (00:06→23:33)
[2024-05-25 03:37] VITALS: BP 138/64; PULSE 92; RESP 18; TEMP 36.1; O2SAT 95
[2024-05-25 07:20] VITALS: BP 127/63; PULSE 88; RESP 17; TEMP 36; O2SAT 96
[2024-05-25 07:33] LABS: Hematocrit 31.7 % (37.0-47.0); Hemoglobin 9.7 g/dl (12.0-16.0); Mean Corpuscular HGB Conc 30.6 g/dl (31.0-35.0); Mean Corpuscular Hemoglobin 22.5 pg (27.0-33.0); Mean Corpuscular Volume 73.4 fL (80.0-98.0); Mean Platelet Volume 8.5 fL (9.4-12.3); Platelet Count 433 X10*3/uL (160-400); Red Blood Count 4.32 X10*6/uL (4.20-5.50); Red Cell Distribution Width 19.8 % (11.0-16.0); White Blood Count 10.5 X10*3/uL (4.8-10.8)
[2024-05-25 07:36] LABS: Glucose, Whole Blood 154 mg/dL (60-115)
[2024-05-25 07:41] LABS: Anion Gap 15 (12-20); Blood Urea Nitrogen 8 mg/dL (9-16); Calcium 8.6 mg/dL (8.4-10.2); Carbon Dioxide 25 mmol/L (22-29); Chloride 99 mmol/L (96-108); Estimated Glomerular Filt Rate 45; Glucose Random 141 mg/dL (60-115); Potassium 3.5 mmol/L (3.3-5.1); Sodium 135 mmol/L (135-145)
--- NOTE | 2024-05-25 08:09 | PM.PNGS ---
Subjective Subjective Date of Service: 05/27/24 Interval history: Says she is tired Describes discomfort on the left side Denies dysuria Denies nausea or vomiting No fever Physical Exam Vital Signs: Vital Signs: Last Vital Signs Temp 96.8 F 05/25/24 07:20 Pulse 88 05/25/24 07:20 Resp 17 05/25/24 07:20 BP 127/63 05/25/24 07:20 Pulse Ox 96 05/25/24 07:20 O2 Del Method Room Air 05/25/24 07:20 BMI result Body Mass Index 43.4 Const: General: comfortable and no acute distress Resp: Effort & Inspection: normal respiratory effort Cardio: Rate: regular rate GI: Other: Very mild tenderness on the abdomen and flank Inspection: No distended Palpation (GI): Soft to palpation, not firm and no guarding Objective Data Active Medications Acetaminophen (Acetaminophen 325 Mg Tablet) 650 mg PO Q6H PRN PRN Reason: Pain, Mild (Pain Scale 1-3), fever or headache Albuterol Sulfate (Albuterol Sulfate 90 Mcg 8 Gm Inhaler) 2 puff INHALE Q6H PRN PRN Reason: Shortness Of Breath Or Wheezing Last Admin: 05/24/24 13:10 Dose: 2 puff Documented By: YURIDIA Allopurinol (Allopurinol 100 Mg Tablet) 100 mg PO DAILY [facility] Atorvastatin Calcium (Atorvastatin Calcium 20 Mg Tablet) 20 mg PO BEDTIME [facility] [place] Last Admin: 05/24/24 21:33 Dose: 20 mg Documented By: SHAYY Calcium Carbonate (Calcium Carbonate 750 Mg Tab.Chew) 750 mg PO Q4H PRN PRN Reason: Heartburn Escitalopram Oxalate (Escitalopram Oxalate 20 Mg Tablet) 20 mg PO DAILY [facility] [place] Ferrous Sulfate (Ferrous Sulfate 324 Mg Tablet.Dr) 324 mg PO BID [facility] [place] Last Admin: 05/24/24 21:33 Dose: 324 mg Documented By: SHAYY Fluticasone/Vilanterol (Fluticasone/Vilanterol 200/25 Blst.W.Dev) 1 puff INHALE RDAILY [facility] [place] Last Admin: 05/25/24 07:43 Dose: Not Given Documented By: ESSIE Non-Admin Reason: Patient Refused Glucose (Glucose Gel 15 Gm Gel..Gram.) 15 gm PO Q15M PRN; Protocol PRN Reason: per Hypoglycemia Standing Ord. Piperacillin Sod/Tazobactam (Sod 4.5 gm/ Sodium Chloride) 100 mls @ 200 mls/hr IV Q6H [facility] [place] Last Infusion: 05/25/24 06:07 Dose: Infused Documented By: SHAYY Dextrose (D10) 250 mls @ 750 mls/hr IV Q15M PRN; Protocol PRN Reason: per Hypoglycemia Standing Ord. Insulin Human Lispro (Insulin Lispro 100 Unit/Ml 3 Ml Vial) 0 unit SUBCUT QIDACHS [facility] [place]; Protocol Last Admin: 05/25/24 07:30 Dose: Not Given Documented By: FORREST Non-Admin Reason: NPO Lisinopril (Lisinopril 20 Mg Tablet) 20 mg PO DAILY [facility] [place]; Protocol Magnesium Hydroxide (Milk Of Magnesia 30 Ml Oral.Susp) 30 ml PO DAILY PRN PRN Reason: Constipation Meclizine HCl (Meclizine Hcl 25 Mg Tablet) 25 mg PO DAILY PRN PRN Reason: Vertigo Melatonin (Melatonin 3 Mg Tablet) 6 mg PO BEDTIME PRN PRN Reason: Insomnia Montelukast Sodium (Montelukast Sodium 10 Mg Tablet) 10 mg PO BEDTIME [facility] [place] Last Admin: 05/24/24 21:33 Dose: 10 mg Documented By: SHAYY Morphine Sulfate (Morphine Sulfate 4 Mg/Ml Cartridge) 4 mg IVPUSH Q6H PRN; Protocol PRN Reason: Pain, Severe (Pain Scale 7-10) Ondansetron HCl (Ondansetron Hcl 4 Mg/2 Ml Vial) 4 mg IVPUSH Q4H PRN PRN Reason: Nausea and Vomiting Sodium Chloride (0.9 % Sodium Chloride Flush 3 Ml Syringe) 3 ml IVFLUSH QSHIFT [facility] [place] Last Admin: 05/24/24 21:34 Dose: 3 ml Documented By: SHAYY Labs 05/27/24 05:32 05/27/24 05:32 Labs: Laboratory Results - last 24 hr 05/24/24 05/24/24 05/24/24 08:44 11:24 16:10 MCV 73.7 L MCH 21.9 L MCHC 29.8 L RDW 19.6 H Plt Count 443 H MPV 8.3 L Immature Gran % (Auto) 0.5 H Neut % (Auto) 70.9 Lymph % (Auto) 22.3 [place] % (Auto) 5.1 Eos % (Auto) 0.9 Baso % (Auto) 0.3 Lymph # (Auto) 2.2 [place] # (Auto) 0.5 Eos # (Auto) 0.1 Baso # (Auto) 0.0 Abs Immat Gran (auto) 0.05 H Absolute Neuts (auto) 6.9 Absolute Nucleated RBC 0.000 Nucleated RBC % (auto) 0.0 Anion Gap Estim Creat Clear Calc Estimated GFR POC Glucose 143 H 165 H Random Glucose Calcium 05/24/24 05/25/24 05/25/24 20:08 05:58 07:23 MCV 73.4 L MCH 22.5 L MCHC 30.6 L RDW 19.8 H Plt Count 433 H MPV 8.5 L Immature Gran % (Auto) Neut % (Auto) Lymph % (Auto) [place] % (Auto) Eos % (Auto) Baso % (Auto) Lymph # (Auto) [place] # (Auto) Eos # (Auto) Baso # (Auto) Abs Immat Gran (auto) Absolute Neuts (auto) Absolute Nucleated RBC 0.000 Nucleated RBC % (auto) 0.0 Anion Gap 15 Estim Creat Clear Calc 67.0 Estimated GFR 45 POC Glucose 189 H 154 H Random Glucose 141 H Calcium 8.6 Microbiology Microbiology Results: Microbiology 05/23/24 21:22 Blood Culture - Preliminary Blood - Venous No growth after 24 hours. 05/23/24 21:03 Blood Culture - Preliminary Blood - Venous No growth after 24 hours. 05/23/24 Unknown Urine Culture - Preliminary Urine clean catch - Clean Catch Midstream Culture too young to evaluate. Procedures Date of Service Date of Service: 05/27/24 Progress Note: A&P Assessment and plan (1) Perinephric abscess: Status: Acute Assessment and Plan: For CT drainage today Perinephric abscess unlikely to be from a fistula to the colon IV antibiotics WBC normal Looks well and nontoxic looking Case discussedf with Dr. Ochoa of Urology Will follow Time Spent With Patient Time: Total time managing care of this patient today ____ minutes. Quality Stroke Does the patient have a stroke diagnosis?: No VTE Prior VTE?: No VTE Risk Level:: Medical - moderate - high VTE Device Contraindication: N/A - Device Ordered VTE Drug Contraindication: Treatment Not Indicated
[2024-05-25] MEDS: Ferrous Sulfate 324 MG TABLET.DR PO ×2 (08:14→21:23)
[2024-05-25] MEDS: 0.9 % Sodium Chloride Flush 3 ML SYRINGE IVFLUSH (08:14)
[2024-05-25] MEDS: lisinopriL 20 MG TABLET PO (08:14)
[2024-05-25] MEDS: Escitalopram Oxalate 20 MG TABLET PO (08:14)
[2024-05-25] MEDS: allopurinoL 100 MG TABLET PO (08:14)
--- NOTE | 2024-05-25 10:51 | HO.PM.IMPN ---
Subjective Subjective Date of Service: 05/25/24 Interval History: minimal L flank pain; no hematuria no fever no nausea/vomiting Review of Systems Review of Systems: Yes all other systems are reviewed and are negative Physical Exam Vital Signs: Vital Signs: Last Vital Signs Temp 96.8 F 05/25/24 07:20 Pulse 88 05/25/24 07:20 Resp 17 05/25/24 07:20 BP 127/63 05/25/24 07:20 Pulse Ox 96 05/25/24 07:20 O2 Del Method Room Air 05/25/24 07:20 BMI result Body Mass Index 43.4 Gen: in no acute distress HEENT: sclera anicteric, moist mucus membranes Neck: supple Lungs: clear to auscultation bilaterally Heart: regular rate and rhythm, no murmurs Abd: soft, non-tender, non-distended, obese : L flank tenderness Ext: no edema Skin: warm/well-perfused Neuro: alert and oriented x3, no focal findings Psych: appropriate affect Objective Data Active Medications Acetaminophen (Acetaminophen 325 Mg Tablet) 650 mg PO Q6H PRN PRN Reason: Pain, Mild (Pain Scale 1-3), fever or headache Albuterol Sulfate (Albuterol Sulfate 90 Mcg 8 Gm Inhaler) 2 puff INHALE Q6H PRN PRN Reason: Shortness Of Breath Or Wheezing Last Admin: 05/24/24 13:10 Dose: 2 puff Documented By: YURIDIA Allopurinol (Allopurinol 100 Mg Tablet) 100 mg PO DAILY [facility] Last Admin: 05/25/24 08:14 Dose: 100 mg Documented By: FORREST Atorvastatin Calcium (Atorvastatin Calcium 20 Mg Tablet) 20 mg PO BEDTIME [facility] Last Admin: 05/24/24 21:33 Dose: 20 mg Documented By: LYSRenae Calcium Carbonate (Calcium Carbonate 750 Mg Tab.Chew) 750 mg PO Q4H PRN PRN Reason: Heartburn Escitalopram Oxalate (Escitalopram Oxalate 20 Mg Tablet) 20 mg PO DAILY [facility] Last Admin: 05/25/24 08:14 Dose: 20 mg Documented By: FORREST Ferrous Sulfate (Ferrous Sulfate 324 Mg Tablet.) 324 mg PO BID [facility] Last Admin: 05/25/24 08:14 Dose: 324 mg Documented By: FORREST Fluticasone/Vilanterol (Fluticasone/Vilanterol 200/25 Blst.W.Dev) 1 puff INHALE RDAILY [facility] Last Admin: 05/25/24 07:43 Dose: Not Given Documented By: ESSIE Non-Admin Reason: Patient Refused Glucose (Glucose Gel 15 Gm Gel..Gram.) 15 gm PO Q15M PRN; Protocol PRN Reason: per Hypoglycemia Standing Ord. Piperacillin Sod/Tazobactam (Sod 4.5 gm/ Sodium Chloride) 100 mls @ 200 mls/hr IV Q6H [facility] Last Infusion: 05/25/24 06:07 Dose: Infused Documented By: SHAYY Dextrose (D10) 250 mls @ 750 mls/hr IV Q15M PRN; Protocol PRN Reason: per Hypoglycemia Standing Ord. Lactated Ringer's (Lr) 1,000 mls @ 100 mls/hr IVCONT .Q10H [facility] Insulin Human Lispro (Insulin Lispro 100 Unit/Ml 3 Ml Vial) 0 unit SUBCUT QIDACHS [facility]; Protocol Last Admin: 05/25/24 07:30 Dose: Not Given Documented By: FORREST Non-Admin Reason: NPO Lisinopril (Lisinopril 20 Mg Tablet) 20 mg PO DAILY [facility]; Protocol Last Admin: 05/25/24 08:14 Dose: 20 mg Documented By: FORREST Magnesium Hydroxide (Milk Of Magnesia 30 Ml Oral.Susp) 30 ml PO DAILY PRN PRN Reason: Constipation Meclizine HCl (Meclizine Hcl 25 Mg Tablet) 25 mg PO DAILY PRN PRN Reason: Vertigo Melatonin (Melatonin 3 Mg Tablet) 6 mg PO BEDTIME PRN PRN Reason: Insomnia Montelukast Sodium (Montelukast Sodium 10 Mg Tablet) 10 mg PO BEDTIME [facility] Last Admin: 05/24/24 21:33 Dose: 10 mg Documented By: SHAYY Morphine Sulfate (Morphine Sulfate 4 Mg/Ml Cartridge) 4 mg IVPUSH Q6H PRN; Protocol PRN Reason: Pain, Severe (Pain Scale 7-10) Ondansetron HCl (Ondansetron Hcl 4 Mg/2 Ml Vial) 4 mg IVPUSH Q4H PRN PRN Reason: Nausea and Vomiting Sodium Chloride (0.9 % Sodium Chloride Flush 3 Ml Syringe) 3 ml IVFLUSH QSHIFT [facility] Last Admin: 05/25/24 08:14 Dose: 3 ml Documented By: FORREST Labs 05/25/24 05:58 05/25/24 05:58 Labs: Laboratory Results - last 24 hr 05/24/24 05/24/24 05/24/24 11:24 16:10 20:08 MCV MCH MCHC RDW Plt Count MPV Absolute Nucleated RBC Nucleated RBC % (auto) Anion Gap Estim Creat Clear Calc Estimated GFR POC Glucose 143 H 165 H 189 H Random Glucose Calcium 05/25/24 05/25/24 05:58 07:23 MCV 73.4 L MCH 22.5 L MCHC 30.6 L RDW 19.8 H Plt Count 433 H MPV 8.5 L Absolute Nucleated RBC 0.000 Nucleated RBC % (auto) 0.0 Anion Gap 15 Estim Creat Clear Calc 67.0 Estimated GFR 45 POC Glucose 154 H Random Glucose 141 H Calcium 8.6 Microbiology Microbiology Results: Microbiology 05/23/24 Unknown Urine Culture - Final Urine clean catch - Clean Catch Midstream 05/23/24 21:22 Blood Culture - Preliminary Blood - Venous No growth after 24 hours. 05/23/24 21:03 Blood Culture - Preliminary Blood - Venous No growth after 24 hours. Assessment and Plan (1) Perinephric abscess: Status: Acute (2) Hematoma of kidney: Status: Acute Plan d3 53yo F with hx staghorn calculus s/p ureteral stenting complicated by subcapsular hematoma, DM2, obesity, HTN, asthma, HLD presenting with chills and flank pain, found to have complex fluid collection along the lateral aspect of the left kidney with gas perinephric fluid collection - per Gen Surg, doubt fistula to colon; Surg and Uro recommend IR-guided aspiration which is on schedule for today. prn IV morphine complicated UTI - pip-juan antonio d3, follow BCx + UCx DM2 - correction-dose lispro, DM diet HTN - continue lisinopril asthma - continue montelukast, Symbicort HLD - continue statin morbid obesity - diet/exercise counseling VTE ppx - SCDs dispo - TBD In my clinical judgment, the patient requires continued inpatient hospitalization for the following reasons: IR drainage, IV ABX Total time managing care of this patient today: 35 minutes. Quality Stroke Does the patient have a stroke diagnosis?: No VTE Prior VTE?: No VTE Risk Level:: Medical - moderate - high VTE Device Contraindication: N/A - Device Ordered VTE Drug Contraindication: Treatment Not Indicated
[2024-05-25 11:20] LABS: Glucose, Whole Blood 174 mg/dL (60-115)
[2024-05-25] MEDS: Lactated Ringers 1,000 ML 100 ML IVCONT ×2 (11:36→21:23)
--- NOTE | 2024-05-25 13:36 | MHC.CM.PN ---
EMR REVIEWED AND PER MD ROUNDS, PT IS NOT MEDICALLY CLEARED FOR DC (IR DRAINAGE, IV ABT) CM WILL CONINUE TO FOLLOW FOR ANY CHANGE TO DC PLAN/NEEDS.
[2024-05-25] MEDS: Morphine Sulfate 4 MG/ML CARTRIDGE IVPUSH ×2 (16:27→23:48)
[2024-05-25 16:29] VITALS: BP 129/74; PULSE 86; RESP 20; TEMP 36.1; O2SAT 97
[2024-05-25 16:45] LABS: Glucose, Whole Blood 139 mg/dL (60-115)
[2024-05-25 19:36] VITALS: BP 119/68; PULSE 86; RESP 16; TEMP 36; O2SAT 97
[2024-05-25 20:41] LABS: Glucose, Whole Blood 161 mg/dL (60-115)
[2024-05-25] MEDS: Insulin Lispro 100 UNIT/ML 3 ML VIAL SUBCUT (21:23)
[2024-05-25] MEDS: Montelukast Sodium 10 MG TABLET PO (21:23)
[2024-05-25] MEDS: Atorvastatin Calcium 20 MG TABLET PO (21:23)
[2024-05-26 02:50] VITALS: BP 109/69; PULSE 77; RESP 16; TEMP 36; O2SAT 97
[2024-05-26] MEDS: Piperacillin Sodium/Tazobactam 4.5 GM in 0.9 % Sodium Chloride 100 ML IV ×4 (05:34→23:53)
[2024-05-26 07:28] VITALS: BP 127/71; PULSE 73; RESP 16; TEMP 36; O2SAT 98
[2024-05-26 07:43] LABS: Glucose, Whole Blood 109 mg/dL (60-115)
[2024-05-26] MEDS: Lactated Ringers 1,000 ML 100 ML IVCONT ×2 (07:44→17:18)
[2024-05-26] MEDS: Fluticasone/Vilanterol 200/25 BLST.W.DEV 1 PUFF INHALE (07:52)
[2024-05-26 07:53] VITALS: PULSE 73; RESP 98; O2SAT 16
[2024-05-26] MEDS: Ferrous Sulfate 324 MG TABLET.DR PO ×2 (08:47→21:16)
[2024-05-26] MEDS: allopurinoL 100 MG TABLET PO (08:47)
[2024-05-26] MEDS: lisinopriL 20 MG TABLET PO (08:47)
[2024-05-26] MEDS: Escitalopram Oxalate 20 MG TABLET PO (08:47)
[2024-05-26] MEDS: Morphine Sulfate 4 MG/ML CARTRIDGE IVPUSH ×2 (08:54→17:21)
--- NOTE | 2024-05-26 09:24 | HO.PM.IMPN ---
Subjective Subjective Date of Service: 05/26/24 Interval History: L flank discomfort no fever Review of Systems Review of Systems: Yes all other systems are reviewed and are negative Physical Exam Vital Signs: Vital Signs: Last Vital Signs Temp 96.8 F 05/26/24 07:28 Pulse 73 05/26/24 07:53 Resp 98 H 05/26/24 07:53 BP 127/71 05/26/24 07:28 Pulse Ox 98 05/26/24 07:28 O2 Del Method Room Air 05/26/24 07:28 BMI result Body Mass Index 43.4 Gen: in no acute distress HEENT: sclera anicteric, moist mucus membranes Neck: supple Lungs: clear to auscultation bilaterally Heart: regular rate and rhythm, no murmurs Abd: soft, non-tender, non-distended, obese : L flank tenderness, CHARLENE draining seropurulent fluid Ext: no edema Skin: warm/well-perfused Neuro: alert and oriented x3, no focal findings Psych: appropriate affect Objective Data Active Medications Acetaminophen (Acetaminophen 325 Mg Tablet) 650 mg PO Q6H PRN PRN Reason: Pain, Mild (Pain Scale 1-3), fever or headache Albuterol Sulfate (Albuterol Sulfate 90 Mcg 8 Gm Inhaler) 2 puff INHALE Q6H PRN PRN Reason: Shortness Of Breath Or Wheezing Last Admin: 05/24/24 13:10 Dose: 2 puff Documented By: YURIDIA Allopurinol (Allopurinol 100 Mg Tablet) 100 mg PO DAILY [facility] Last Admin: 05/26/24 08:47 Dose: 100 mg Documented By: RICO Atorvastatin Calcium (Atorvastatin Calcium 20 Mg Tablet) 20 mg PO BEDTIME [facility] Last Admin: 05/25/24 21:23 Dose: 20 mg Documented By: CASTILM Calcium Carbonate (Calcium Carbonate 750 Mg Tab.Chew) 750 mg PO Q4H PRN PRN Reason: Heartburn Escitalopram Oxalate (Escitalopram Oxalate 20 Mg Tablet) 20 mg PO DAILY [facility] Last Admin: 05/26/24 08:47 Dose: 20 mg Documented By: RICO Ferrous Sulfate (Ferrous Sulfate 324 Mg Tablet.) 324 mg PO BID [facility] Last Admin: 05/26/24 08:47 Dose: 324 mg Documented By: RICO Fluticasone/Vilanterol (Fluticasone/Vilanterol 200/25 Blst.W.Dev) 1 puff INHALE RDAILY [facility] Last Admin: 05/26/24 07:52 Dose: 1 puff Documented By: RODRIGO Glucose (Glucose Gel 15 Gm Gel..Gram.) 15 gm PO Q15M PRN; Protocol PRN Reason: per Hypoglycemia Standing Ord. Piperacillin Sod/Tazobactam (Sod 4.5 gm/ Sodium Chloride) 100 mls @ 200 mls/hr IV Q6H [facility] Last Infusion: 05/26/24 06:12 Dose: Infused Documented By: FRANCISCO Dextrose (D10) 250 mls @ 750 mls/hr IV Q15M PRN; Protocol PRN Reason: per Hypoglycemia Standing Ord. Lactated Ringer's (Lr) 1,000 mls @ 100 mls/hr IVCONT .Q10H [facility] Last Admin: 05/26/24 07:44 Dose: 100 mls/hr Documented By: RICO Insulin Human Lispro (Insulin Lispro 100 Unit/Ml 3 Ml Vial) 0 unit SUBCUT QIDACHS [facility]; Protocol Last Admin: 05/26/24 08:44 Dose: Not Given Documented By: RICO Non-Admin Reason: No Insulin Coverage Lisinopril (Lisinopril 20 Mg Tablet) 20 mg PO DAILY [facility]; Protocol Last Admin: 05/26/24 08:47 Dose: 20 mg Documented By: RICO Magnesium Hydroxide (Milk Of Magnesia 30 Ml Oral.Susp) 30 ml PO DAILY PRN PRN Reason: Constipation Meclizine HCl (Meclizine Hcl 25 Mg Tablet) 25 mg PO DAILY PRN PRN Reason: Vertigo Melatonin (Melatonin 3 Mg Tablet) 6 mg PO BEDTIME PRN PRN Reason: Insomnia Montelukast Sodium (Montelukast Sodium 10 Mg Tablet) 10 mg PO BEDTIME [facility] Last Admin: 05/25/24 21:23 Dose: 10 mg Documented By: FRANCISCO Morphine Sulfate (Morphine Sulfate 4 Mg/Ml Cartridge) 4 mg IVPUSH Q6H PRN; Protocol PRN Reason: Pain, Severe (Pain Scale 7-10) Last Admin: 05/26/24 08:54 Dose: 4 mg Documented By: RICO Ondansetron HCl (Ondansetron Hcl 4 Mg/2 Ml Vial) 4 mg IVPUSH Q4H PRN PRN Reason: Nausea and Vomiting Sodium Chloride (0.9 % Sodium Chloride Flush 3 Ml Syringe) 3 ml IVFLUSH QSHIFT [facility] Last Admin: 05/26/24 08:49 Dose: Not Given Documented By: RICO Non-Admin Reason: IV Running Labs 05/25/24 05:58 05/25/24 05:58 Labs: Laboratory Results - last 24 hr 05/25/24 05/25/24 05/25/24 11:14 16:39 20:37 POC Glucose 174 H 139 H 161 H 05/26/24 07:31 POC Glucose 109 Microbiology Microbiology Results: Microbiology 05/23/24 21:22 Blood Culture - Preliminary Blood - Venous No growth after 48 hours. 05/23/24 21:03 Blood Culture - Preliminary Blood - Venous No growth after 48 hours. 05/23/24 Unknown Urine Culture - Final Urine clean catch - Clean Catch Midstream Assessment and Plan (1) Perinephric abscess: Status: Acute (2) Hematoma of kidney: Status: Acute Plan d4 53yo F with hx staghorn calculus s/p ureteral stenting complicated by subcapsular hematoma, DM2, obesity, HTN, asthma, HLD presenting with chills and flank pain, found to have complex fluid collection along the lateral aspect of the left kidney with gas perinephric abscess complicated UTI - per Gen Surg, doubt fistula to colon; Surg and Uro consulted, CT-guided aspiration done 05/25/24; prn IV morphine for severe pain - pip-juan antonio d3, ID consult, follow fluid culture DM2 - correction-dose lispro, DM diet HTN - continue lisinopril asthma - continue montelukast, Symbicort HLD - continue statin morbid obesity - diet/exercise counseling VTE ppx - SCDs dispo - TBD In my clinical judgment, the patient requires continued inpatient hospitalization for the following reasons: IV ABX Total time managing care of this patient today: 35 minutes. Quality Stroke Does the patient have a stroke diagnosis?: No VTE Prior VTE?: No VTE Risk Level:: Medical - moderate - high VTE Device Contraindication: N/A - Device Ordered VTE Drug Contraindication: Treatment Not Indicated
--- NOTE | 2024-05-26 10:25 | PM.PNGS ---
Subjective Subjective Date of Service: 05/26/24 Interval history: Patient is doing well. She had the interventional CT scan guided drainage of her left flank abscess yesterday with around 175 cc of purulent type material being drained. She says she feels about the same but no fevers or chills etc.. Physical Exam Vital Signs: Vital Signs: Last Vital Signs Temp 96.8 F 05/26/24 07:28 Pulse 73 05/26/24 07:53 Resp 98 H 05/26/24 07:53 BP 127/71 05/26/24 07:28 Pulse Ox 98 05/26/24 07:28 O2 Del Method Room Air 05/26/24 07:28 BMI result Body Mass Index 43.4 GI: Other: Abdomen is large she is little tender at the insertion site of the drain Drainage material looks purulent Objective Data Active Medications Acetaminophen (Acetaminophen 325 Mg Tablet) 650 mg PO Q6H PRN PRN Reason: Pain, Mild (Pain Scale 1-3), fever or headache Albuterol Sulfate (Albuterol Sulfate 90 Mcg 8 Gm Inhaler) 2 puff INHALE Q6H PRN PRN Reason: Shortness Of Breath Or Wheezing Last Admin: 05/24/24 13:10 Dose: 2 puff Documented By: YURIDIA Allopurinol (Allopurinol 100 Mg Tablet) 100 mg PO DAILY [facility] Last Admin: 05/26/24 08:47 Dose: 100 mg Documented By: RICO Atorvastatin Calcium (Atorvastatin Calcium 20 Mg Tablet) 20 mg PO BEDTIME [facility] Last Admin: 05/25/24 21:23 Dose: 20 mg Documented By: CASTILM Calcium Carbonate (Calcium Carbonate 750 Mg Tab.Chew) 750 mg PO Q4H PRN PRN Reason: Heartburn Escitalopram Oxalate (Escitalopram Oxalate 20 Mg Tablet) 20 mg PO DAILY [facility] Last Admin: 05/26/24 08:47 Dose: 20 mg Documented By: RICO Ferrous Sulfate (Ferrous Sulfate 324 Mg Tablet.) 324 mg PO BID [facility] Last Admin: 05/26/24 08:47 Dose: 324 mg Documented By: RICO Fluticasone/Vilanterol (Fluticasone/Vilanterol 200/25 Blst.W.Dev) 1 puff INHALE RDAILY [facility] Last Admin: 05/26/24 07:52 Dose: 1 puff Documented By: RODRIGO Glucose (Glucose Gel 15 Gm Gel..Gram.) 15 gm PO Q15M PRN; Protocol PRN Reason: per Hypoglycemia Standing Ord. Piperacillin Sod/Tazobactam (Sod 4.5 gm/ Sodium Chloride) 100 mls @ 200 mls/hr IV Q6H [facility] Last Infusion: 05/26/24 06:12 Dose: Infused Documented By: FRANCISCO Dextrose (D10) 250 mls @ 750 mls/hr IV Q15M PRN; Protocol PRN Reason: per Hypoglycemia Standing Ord. Lactated Ringer's (Lr) 1,000 mls @ 100 mls/hr IVCONT .Q10H [facility] Last Admin: 05/26/24 07:44 Dose: 100 mls/hr Documented By: RICO Insulin Human Lispro (Insulin Lispro 100 Unit/Ml 3 Ml Vial) 0 unit SUBCUT QIDACHS [facility]; Protocol Last Admin: 05/26/24 08:44 Dose: Not Given Documented By: RICO Non-Admin Reason: No Insulin Coverage Lisinopril (Lisinopril 20 Mg Tablet) 20 mg PO DAILY [facility]; Protocol Last Admin: 05/26/24 08:47 Dose: 20 mg Documented By: RICO Magnesium Hydroxide (Milk Of Magnesia 30 Ml Oral.Susp) 30 ml PO DAILY PRN PRN Reason: Constipation Meclizine HCl (Meclizine Hcl 25 Mg Tablet) 25 mg PO DAILY PRN PRN Reason: Vertigo Melatonin (Melatonin 3 Mg Tablet) 6 mg PO BEDTIME PRN PRN Reason: Insomnia Montelukast Sodium (Montelukast Sodium 10 Mg Tablet) 10 mg PO BEDTIME [facility] Last Admin: 05/25/24 21:23 Dose: 10 mg Documented By: FRANCISCO Morphine Sulfate (Morphine Sulfate 4 Mg/Ml Cartridge) 4 mg IVPUSH Q6H PRN; Protocol PRN Reason: Pain, Severe (Pain Scale 7-10) Last Admin: 05/26/24 08:54 Dose: 4 mg Documented By: RICO Ondansetron HCl (Ondansetron Hcl 4 Mg/2 Ml Vial) 4 mg IVPUSH Q4H PRN PRN Reason: Nausea and Vomiting Sodium Chloride (0.9 % Sodium Chloride Flush 3 Ml Syringe) 3 ml IVFLUSH QSHIFT [facility] Last Admin: 05/26/24 08:49 Dose: Not Given Documented By: RICO Non-Admin Reason: IV Running Labs 05/25/24 05:58 05/25/24 05:58 Labs: Laboratory Results - last 24 hr 05/25/24 05/25/24 05/25/24 11:14 16:39 20:37 POC Glucose 174 H 139 H 161 H 05/26/24 07:31 POC Glucose 109 Microbiology Microbiology Results: Microbiology 05/23/24 21:22 Blood Culture - Preliminary Blood - Venous No growth after 48 hours. 05/23/24 21:03 Blood Culture - Preliminary Blood - Venous No growth after 48 hours. 05/23/24 Unknown Urine Culture - Final Urine clean catch - Clean Catch Midstream Procedures Date of Service Date of Service: 05/26/24 Progress Note: A&P Assessment and plan (1) Perinephric abscess: Status: Acute Assessment and Plan: 53-year-old female with left-sided intra-abdominal abscess question etiology. Doing better now that the area has been drained. Plan to continue with IV antibiotics follow up on cultures we will continue to follow as well as . At some point she had probably need the colonoscopy as well Time Spent With Patient Time: Total time managing care of this patient today ____ minutes. Quality Stroke Does the patient have a stroke diagnosis?: No VTE Prior VTE?: No VTE Risk Level:: Medical - moderate - high VTE Device Contraindication: N/A - Device Ordered VTE Drug Contraindication: Treatment Not Indicated
[2024-05-26 11:20] LABS: Glucose, Whole Blood 137 mg/dL (60-115)
[2024-05-26 15:16] VITALS: BP 129/73; PULSE 80; RESP 20; TEMP 36.4; O2SAT 95
[2024-05-26 16:15] LABS: Glucose, Whole Blood 127 mg/dL (60-115)
[2024-05-26 20:00] VITALS: BP 117/67; PULSE 78; RESP 18; TEMP 36.5; O2SAT 96
[2024-05-26 20:37] LABS: Glucose, Whole Blood 151 mg/dL (60-115)
[2024-05-26] MEDS: Insulin Lispro 100 UNIT/ML 3 ML VIAL SUBCUT (21:15)
[2024-05-26] MEDS: Atorvastatin Calcium 20 MG TABLET PO (21:16)
[2024-05-26] MEDS: Montelukast Sodium 10 MG TABLET PO (21:16)
[2024-05-26] MEDS: 0.9 % Sodium Chloride Flush 3 ML SYRINGE IVFLUSH (23:55)
[2024-05-27 04:00] VITALS: BP 122/75; PULSE 75; RESP 16; TEMP 36; O2SAT 98
[2024-05-27] MEDS: Piperacillin Sodium/Tazobactam 4.5 GM in 0.9 % Sodium Chloride 100 ML IV ×3 (05:51→17:48)
[2024-05-27 06:54] LABS: Hematocrit 29.9 % (37.0-47.0); Hemoglobin 9.2 g/dl (12.0-16.0); Mean Corpuscular HGB Conc 30.8 g/dl (31.0-35.0); Mean Corpuscular Hemoglobin 22.8 pg (27.0-33.0); Mean Platelet Volume 8.4 fL (9.4-12.3); Platelet Count 439 X10*3/uL (160-400); Red Blood Count 4.04 X10*6/uL (4.20-5.50); Red Cell Distribution Width 19.8 % (11.0-16.0)
[2024-05-27 07:06] VITALS: BP 132/71; PULSE 72; RESP 18; TEMP 36.8; O2SAT 94
[2024-05-27 07:06] LABS: Anion Gap 11 (12-20); Blood Urea Nitrogen 7 mg/dL (9-16); Calcium 8.3 mg/dL (8.4-10.2); Carbon Dioxide 28 mmol/L (22-29); Chloride 100 mmol/L (96-108); Creatinine Clr Calc Pharmacy 74.7; Estimated Glomerular Filt Rate 51; Glucose Random 100 mg/dL (60-115); Potassium 3.2 mmol/L (3.3-5.1); Sodium 136 mmol/L (135-145)
[2024-05-27 07:20] LABS: Glucose, Whole Blood 125 mg/dL (60-115)
[2024-05-27 07:44] VITALS: PULSE 88; RESP 19; O2SAT 96
[2024-05-27] MEDS: Fluticasone/Vilanterol 200/25 BLST.W.DEV 1 PUFF INHALE (07:44)
[2024-05-27 08:23] VITALS: BP 132/71
[2024-05-27] MEDS: Ferrous Sulfate 324 MG TABLET.DR PO ×2 (08:23→20:28)
[2024-05-27] MEDS: allopurinoL 100 MG TABLET PO (08:23)
[2024-05-27] MEDS: 0.9 % Sodium Chloride Flush 3 ML SYRINGE IVFLUSH (08:23)
[2024-05-27] MEDS: Potassium Chloride ER 20 MEQ TAB.ER.PRT PO (08:23)
[2024-05-27] MEDS: Escitalopram Oxalate 20 MG TABLET PO (08:23)
[2024-05-27] MEDS: lisinopriL 20 MG TABLET PO (08:23)
--- NOTE | 2024-05-27 09:27 | P.PNIM_ITS ---
Subjective Subjective Date of Service: 05/27/24 Interval History: L flank pain CHARLENE drain put out 65 mL pus overnight no fever Review of Systems Review of Systems: Yes all other systems are reviewed and are negative Physical Exam 2 Vital Signs: Vital Signs: Last Vital Signs Temp 98.2 F 05/27/24 07:06 Pulse 88 05/27/24 07:44 Resp 19 05/27/24 07:44 BP 132/71 05/27/24 08:23 Pulse Ox 94 05/27/24 07:06 O2 Del Method Room Air 05/27/24 07:06 BMI result Body Mass Index 43.4 Gen: in no acute distress HEENT: sclera anicteric, moist mucus membranes Neck: supple Lungs: clear to auscultation bilaterally Heart: regular rate and rhythm, no murmurs Abd: soft, non-tender, non-distended, obese : L flank tenderness, CHARLENE draining seropurulent fluid Ext: no edema Skin: warm/well-perfused Neuro: alert and oriented x3, no focal findings Psych: appropriate affect Objective Data Active Medications Acetaminophen (Acetaminophen 325 Mg Tablet) 650 mg PO Q6H PRN PRN Reason: Pain, Mild (Pain Scale 1-3), fever or headache Albuterol Sulfate (Albuterol Sulfate 90 Mcg 8 Gm Inhaler) 2 puff INHALE Q6H PRN PRN Reason: Shortness Of Breath Or Wheezing Last Admin: 05/24/24 13:10 Dose: 2 puff Documented By: YURIDIA Allopurinol (Allopurinol 100 Mg Tablet) 100 mg PO DAILY [facility] Last Admin: 05/27/24 08:23 Dose: 100 mg Documented By: KEI Atorvastatin Calcium (Atorvastatin Calcium 20 Mg Tablet) 20 mg PO BEDTIME [facility] Last Admin: 05/26/24 21:16 Dose: 20 mg Documented By: PAUL Calcium Carbonate (Calcium Carbonate 750 Mg Tab.Chew) 750 mg PO Q4H PRN PRN Reason: Heartburn Escitalopram Oxalate (Escitalopram Oxalate 20 Mg Tablet) 20 mg PO DAILY [facility] Last Admin: 05/27/24 08:23 Dose: 20 mg Documented By: KEI Ferrous Sulfate (Ferrous Sulfate 324 Mg Tablet.) 324 mg PO BID [facility] Last Admin: 05/27/24 08:23 Dose: 324 mg Documented By: KEI Fluticasone/Vilanterol (Fluticasone/Vilanterol 200/25 Blst.W.Dev) 1 puff INHALE RDAILY [facility] Last Admin: 05/27/24 07:44 Dose: 1 puff Documented By: ONDINA Glucose (Glucose Gel 15 Gm Gel..Gram.) 15 gm PO Q15M PRN; Protocol PRN Reason: per Hypoglycemia Standing Ord. Piperacillin Sod/Tazobactam (Sod 4.5 gm/ Sodium Chloride) 100 mls @ 200 mls/hr IV Q6H [facility] Last Infusion: 05/27/24 06:44 Dose: Infused Documented By: PAUL Dextrose (D10) 250 mls @ 750 mls/hr IV Q15M PRN; Protocol PRN Reason: per Hypoglycemia Standing Ord. Insulin Human Lispro (Insulin Lispro 100 Unit/Ml 3 Ml Vial) 0 unit SUBCUT QIDACHS [facility]; Protocol Last Admin: 05/27/24 07:45 Dose: Not Given Documented By: KEI Non-Admin Reason: No Insulin Coverage Lisinopril (Lisinopril 20 Mg Tablet) 20 mg PO DAILY [facility]; Protocol Last Admin: 05/27/24 08:23 Dose: 20 mg Documented By: KEI Magnesium Hydroxide (Milk Of Magnesia 30 Ml Oral.Susp) 30 ml PO DAILY PRN PRN Reason: Constipation Meclizine HCl (Meclizine Hcl 25 Mg Tablet) 25 mg PO DAILY PRN PRN Reason: Vertigo Melatonin (Melatonin 3 Mg Tablet) 6 mg PO BEDTIME PRN PRN Reason: Insomnia Montelukast Sodium (Montelukast Sodium 10 Mg Tablet) 10 mg PO BEDTIME [facility] Last Admin: 05/26/24 21:16 Dose: 10 mg Documented By: PAUL Morphine Sulfate (Morphine Sulfate 4 Mg/Ml Cartridge) 4 mg IVPUSH Q6H PRN; Protocol PRN Reason: Pain, Severe (Pain Scale 7-10) Last Admin: 05/26/24 17:21 Dose: 4 mg Documented By: RICO Ondansetron HCl (Ondansetron Hcl 4 Mg/2 Ml Vial) 4 mg IVPUSH Q4H PRN PRN Reason: Nausea and Vomiting Sodium Chloride (0.9 % Sodium Chloride Flush 3 Ml Syringe) 3 ml IVFLUSH QSHIFT [facility] Last Admin: 05/27/24 08:23 Dose: 3 ml Documented By: KEI Labs 05/27/24 05:32 05/27/24 05:32 Labs: Laboratory Results - last 24 hr 05/26/24 05/26/24 05/26/24 11:13 16:04 19:53 MCV MCH MCHC RDW Plt Count MPV Absolute Nucleated RBC Nucleated RBC % (auto) Anion Gap Estim Creat Clear Calc Estimated GFR POC Glucose 137 H 127 H 151 H Random Glucose Calcium C-Reactive Protein 05/27/24 05/27/24 05:32 07:10 MCV 74.0 L MCH 22.8 L MCHC 30.8 L RDW 19.8 H Plt Count 439 H MPV 8.4 L Absolute Nucleated RBC 0.000 Nucleated RBC % (auto) 0.0 Anion Gap 11 L Estim Creat Clear Calc 74.7 Estimated GFR 51 POC Glucose 125 H Random Glucose 100 Calcium 8.3 L C-Reactive Protein 12.90 H Microbiology Microbiology Results: Microbiology 05/25/24 15:05 Gram Stain - Final Kidney - Abscess Routine Culture - Preliminary Culture in progress. Anaerobic Culture - Preliminary Culture in progress. 05/25/24 22:17 Gram Stain - Final Abdominal Fluid Routine Culture - Preliminary Culture in progress. Anaerobic Culture - Preliminary Culture in progress. Assessment and Plan (1) Perinephric abscess: Status: Acute (2) Hematoma of kidney: Status: Acute Plan d5 53yo F with hx staghorn calculus s/p ureteral stenting complicated by subcapsular hematoma, DM2, obesity, HTN, asthma, HLD presenting with chills and flank pain, found to have complex fluid collection along the lateral aspect of the left kidney with gas perinephric abscess complicated UTI - per Gen Surg, doubt fistula to colon; Surg and Uro consulted, CT-guided aspiration done 05/25/24; prn IV morphine for severe pain - pip-juan antonio d4, ID consult pending, follow fluid culture, CHARLENE in place hypoK - replete PO, recheck BMP in AM DM2 - correction-dose lispro, DM diet HTN - continue lisinopril asthma - continue montelukast, Symbicort HLD - continue statin morbid obesity - diet/exercise counseling VTE ppx - SCDs dispo - TBD In my clinical judgment, the patient requires continued inpatient hospitalization for the following reasons: IV ABX Total time managing care of this patient today: 35 minutes. Quality Stroke Does the patient have a stroke diagnosis?: No VTE Prior VTE?: No VTE Risk Level:: Medical - moderate - high VTE Device Contraindication: N/A - Device Ordered VTE Drug Contraindication: Treatment Not Indicated
--- NOTE | 2024-05-27 10:50 | MHC.CM.PN ---
EMR REVIEWED AND PER MD ROUNDS, PT IS NOT MEDICALLY CLEARED FOR DC (PAIN CONTROL, MONITORING CHARLENE DRAIN) POSSIBLE REMOVAL OF DRAIN ON 05/30 THEN DC HOME. CM WILL CONTINUE TO FOLLOW FOR ANY CHANGE TO DC PLAN/NEEDS.
[2024-05-27 11:11] LABS: Glucose, Whole Blood 149 mg/dL (60-115)
--- NOTE | 2024-05-27 14:49 | PM.PNGS ---
Subjective Subjective Date of Service: 05/27/24 Interval history: Describes some pain on the drain site Tolerating diet No Fever Physical Exam Vital Signs: Vital Signs: Last Vital Signs Temp 98.2 F 05/27/24 07:06 Pulse 88 05/27/24 07:44 Resp 19 05/27/24 07:44 BP 132/71 05/27/24 08:23 Pulse Ox 94 05/27/24 07:06 O2 Del Method Room Air 05/27/24 07:06 BMI result Body Mass Index 43.4 Const: General: no acute distress Resp: Effort & Inspection: normal respiratory effort Cardio: Rate: regular rate GI: Other: Drain in place, purulent, not fecal looking Palpation (GI): Soft to palpation, not firm and nontender Objective Data Active Medications Acetaminophen (Acetaminophen 325 Mg Tablet) 650 mg PO Q6H PRN PRN Reason: Pain, Mild (Pain Scale 1-3), fever or headache Albuterol Sulfate (Albuterol Sulfate 90 Mcg 8 Gm Inhaler) 2 puff INHALE Q6H PRN PRN Reason: Shortness Of Breath Or Wheezing Last Admin: 05/24/24 13:10 Dose: 2 puff Documented By: YURIDIA Allopurinol (Allopurinol 100 Mg Tablet) 100 mg PO DAILY [facility] Last Admin: 05/27/24 08:23 Dose: 100 mg Documented By: KEI Atorvastatin Calcium (Atorvastatin Calcium 20 Mg Tablet) 20 mg PO BEDTIME [facility] Last Admin: 05/26/24 21:16 Dose: 20 mg Documented By: PAUL Calcium Carbonate (Calcium Carbonate 750 Mg Tab.Chew) 750 mg PO Q4H PRN PRN Reason: Heartburn Escitalopram Oxalate (Escitalopram Oxalate 20 Mg Tablet) 20 mg PO DAILY [facility] Last Admin: 05/27/24 08:23 Dose: 20 mg Documented By: KEI Ferrous Sulfate (Ferrous Sulfate 324 Mg Tablet.Dr) 324 mg PO BID [facility] Last Admin: 05/27/24 08:23 Dose: 324 mg Documented By: KEI Fluticasone/Vilanterol (Fluticasone/Vilanterol 200/25 Blst.W.Dev) 1 puff INHALE RDAILY [facility] Last Admin: 05/27/24 07:44 Dose: 1 puff Documented By: HO.REILLK Glucose (Glucose Gel 15 Gm Gel..Gram.) 15 gm PO Q15M PRN; Protocol PRN Reason: per Hypoglycemia Standing Ord. Piperacillin Sod/Tazobactam (Sod 4.5 gm/ Sodium Chloride) 100 mls @ 200 mls/hr IV Q6H [facility] Last Infusion: 05/27/24 13:25 Dose: Infused Documented By: KEI Dextrose (D10) 250 mls @ 750 mls/hr IV Q15M PRN; Protocol PRN Reason: per Hypoglycemia Standing Ord. Insulin Human Lispro (Insulin Lispro 100 Unit/Ml 3 Ml Vial) 0 unit SUBCUT QIDACHS [facility]; Protocol Last Admin: 05/27/24 11:14 Dose: Not Given Documented By: KEI Non-Admin Reason: No Insulin Coverage Lisinopril (Lisinopril 20 Mg Tablet) 20 mg PO DAILY [facility]; Protocol Last Admin: 05/27/24 08:23 Dose: 20 mg Documented By: KEI Magnesium Hydroxide (Milk Of Magnesia 30 Ml Oral.Susp) 30 ml PO DAILY PRN PRN Reason: Constipation Meclizine HCl (Meclizine Hcl 25 Mg Tablet) 25 mg PO DAILY PRN PRN Reason: Vertigo Melatonin (Melatonin 3 Mg Tablet) 6 mg PO BEDTIME PRN PRN Reason: Insomnia Montelukast Sodium (Montelukast Sodium 10 Mg Tablet) 10 mg PO BEDTIME [facility] Last Admin: 05/26/24 21:16 Dose: 10 mg Documented By: PAUL Morphine Sulfate (Morphine Sulfate 4 Mg/Ml Cartridge) 4 mg IVPUSH Q6H PRN; Protocol PRN Reason: Pain, Severe (Pain Scale 7-10) Last Admin: 05/26/24 17:21 Dose: 4 mg Documented By: RICO Ondansetron HCl (Ondansetron Hcl 4 Mg/2 Ml Vial) 4 mg IVPUSH Q4H PRN PRN Reason: Nausea and Vomiting Sodium Chloride (0.9 % Sodium Chloride Flush 3 Ml Syringe) [facility] Last Admin: 05/27/24 08:23 Dose: 3 ml Documented By: KEI Labs 05/27/24 05:32 05/27/24 05:32 Labs: Laboratory Results - last 24 hr 07/03/1605/26/24 05/27/24 16:04 19:53 05:32 MCV 74.0 L MCH 22.8 L MCHC 30.8 L RDW 19.8 H Plt Count 439 H MPV 8.4 L Absolute Nucleated RBC 0.000 Nucleated RBC % (auto) 0.0 Anion Gap 11 L Estim Creat Clear Calc 74.7 Estimated GFR 51 POC Glucose 127 H 151 H Random Glucose 100 Calcium 8.3 L C-Reactive Protein 12.90 H 05/27/24 05/27/24 07:10 11:05 MCV MCH MCHC RDW Plt Count MPV Absolute Nucleated RBC Nucleated RBC % (auto) Anion Gap Estim Creat Clear Calc Estimated GFR POC Glucose 125 H 149 H Random Glucose Calcium C-Reactive Protein Microbiology Microbiology Results: Microbiology 05/25/24 15:05 Gram Stain - Final Kidney - Abscess Routine Culture - Preliminary Culture in progress. Anaerobic Culture - Preliminary Culture in progress. 05/25/24 22:17 Gram Stain - Final Abdominal Fluid Routine Culture - Preliminary Culture in progress. Anaerobic Culture - Preliminary Culture in progress. Procedures Date of Service Date of Service: 05/27/24 Progress Note: A&P Assessment and plan (1) Perinephric abscess: Status: Acute Assessment and Plan: CT drain in place Management as per urology IV antibiotics Recommend colonoscopy down the line in follow-up CT scan Patient doing well overall Time Spent With Patient Time: Total time managing care of this patient today ____ minutes. Quality Stroke Does the patient have a stroke diagnosis?: No VTE Prior VTE?: No VTE Risk Level:: Medical - moderate - high VTE Device Contraindication: N/A - Device Ordered VTE Drug Contraindication: Treatment Not Indicated
[2024-05-27 15:24] VITALS: BP 143/79; PULSE 79; RESP 16; TEMP 36.3; O2SAT 98
[2024-05-27 16:23] LABS: Glucose, Whole Blood 114 mg/dL (60-115)
--- NOTE | 2024-05-27 17:44 | P.PNUR_ITS ---
Subjective Subjective Date of Service: 05/27/24 Interval history: Left drain placed by IR Initially drained 180 cc Has continued to drain 60 cc daily Significant drop in WBC has dropped from 15-8.0 Culture still pending 3+ Gram-positive cocci - pending speciation Receiving antibiotics Antibiotic dosing and course will be defined by Infectious Disease Physical Exam 2 Vital Signs: Vital Signs: Last Vital Signs Temp 97.3 F 05/27/24 15:24 Pulse 79 05/27/24 15:24 Resp 16 05/27/24 15:24 BP 143/79 H 05/27/24 15:24 Pulse Ox 98 05/27/24 15:24 O2 Del Method Room Air 05/27/24 15:24 BMI result Body Mass Index 43.4 Const: General: cooperative, healthy appearing, comfortable and no acute distress Orientation/consciousness: patient oriented x3 HEENT: Face and sinus: Yes normal facial exam Mouth: moist mucous membranes Neck: Neck: Yes normal visual inspection, Yes full ROM and Yes trachea midline Chest: Chest palpation & inspection: normal inspection of the chest Resp: Effort & Inspection: normal respiratory effort, able to speak in complete sentences and no respiratory distress GI: Inspection: Yes normal to inspection Back/Spine/Pelvis: Cervical Spine: normal cervical lordosis Thoracic/Lumbar Spine: thoracic and lumbar spine normal to inspection Skin: General skin exam: no rashes or lesions noted Neuro: General: patient oriented x3, tone normal and moves all extremities Extrem: General: Yes normal to inspection and Yes capillary refill normal Urology Results Labs 05/27/24 05:32 05/27/24 05:32 Labs: Laboratory Results - last 24 hr 05/26/24 05/27/24 05/27/24 19:53 05:32 07:10 WBC 8.0 RBC 4.04 L Hgb 9.2 L Hct 29.9 L MCV 74.0 L MCH 22.8 L MCHC 30.8 L RDW 19.8 H Plt Count 439 H MPV 8.4 L Absolute Nucleated RBC 0.000 Nucleated RBC % (auto) 0.0 Sodium 136 Potassium 3.2 L Chloride 100 Carbon Dioxide 28 Anion Gap 11 L BUN 7 L Creatinine 1.12 Estim Creat Clear Calc 74.7 Estimated GFR 51 POC Glucose 151 H 125 H Random Glucose 100 Calcium 8.3 L C-Reactive Protein 12.90 H 05/27/24 05/27/24 11:05 16:16 WBC RBC Hgb Hct MCV MCH MCHC RDW Plt Count MPV Absolute Nucleated RBC Nucleated RBC % (auto) Sodium Potassium Chloride Carbon Dioxide Anion Gap BUN Creatinine Estim Creat Clear Calc Estimated GFR POC Glucose 149 H 114 Random Glucose Calcium C-Reactive Protein Progress Note: A&P Assessment and plan (1) Perinephric abscess: Status: Acute (2) Hematoma of kidney: Status: Acute Plan Continue drainage Time Spent With Patient Time: Total time managing care of this patient today ____ minutes. Progress Note: Quality Stroke Does the patient have a stroke diagnosis?: No
[2024-05-27] MEDS: Morphine Sulfate 4 MG/ML CARTRIDGE IVPUSH (19:19)
[2024-05-27 19:54] VITALS: BP 141/72; PULSE 83; RESP 18; TEMP 36.2; O2SAT 98
[2024-05-27 20:08] LABS: Glucose, Whole Blood 171 mg/dL (60-115)
[2024-05-27] MEDS: Melatonin 3 MG TABLET 6 MG PO (20:28)
[2024-05-27] MEDS: Montelukast Sodium 10 MG TABLET PO (20:29)
[2024-05-27] MEDS: Atorvastatin Calcium 20 MG TABLET PO (20:29)
[2024-05-27] MEDS: Insulin Lispro 100 UNIT/ML 3 ML VIAL SUBCUT (20:36)
[2024-05-28] MEDS: Piperacillin Sodium/Tazobactam 4.5 GM in 0.9 % Sodium Chloride 100 ML IV ×4 (00:30→17:03)
[2024-05-28 03:35] VITALS: BP 138/76; PULSE 80; RESP 16; TEMP 36; O2SAT 97
[2024-05-28 07:35] VITALS: BP 147/79; PULSE 75; RESP 16; TEMP 36; O2SAT 97
--- NOTE | 2024-05-28 07:48 | PC.NURSE ---
Patient with history of vertigo. Reports experiencing intermittent episodes of vertigo. High fall risk precautions in place. Patient A&Ox4- declining bed alarm. Reports she will ring for assistance as needed.
[2024-05-28 07:59] LABS: Glucose, Whole Blood 108 mg/dL (60-115)
[2024-05-28 08:11] LABS: Anion Gap 12 (12-20); Blood Urea Nitrogen 5 mg/dL (9-16); Calcium 8.9 mg/dL (8.4-10.2); Carbon Dioxide 30 mmol/L (22-29); Chloride 101 mmol/L (96-108); Creatinine Clr Calc Pharmacy 72.8; Estimated Glomerular Filt Rate 49; Glucose Random 110 mg/dL (60-115); Potassium 3.7 mmol/L (3.3-5.1); Sodium 139 mmol/L (135-145)
[2024-05-28] MEDS: lisinopriL 20 MG TABLET PO (08:11)
[2024-05-28] MEDS: allopurinoL 100 MG TABLET PO (08:11)
[2024-05-28] MEDS: Escitalopram Oxalate 20 MG TABLET PO (08:12)
[2024-05-28] MEDS: Ferrous Sulfate 324 MG TABLET.DR PO ×2 (08:12→20:37)
[2024-05-28] MEDS: 0.9 % Sodium Chloride Flush 3 ML SYRINGE IVFLUSH ×2 (08:12→17:03)
--- NOTE | 2024-05-28 09:28 | HO.PM.IMPN ---
Subjective Subjective Date of Service: 05/28/24 Interval History: pain improved tolerating diet CHARLENE put out 120 mL over last 24h Review of Systems Review of Systems: Yes all other systems are reviewed and are negative Physical Exam Vital Signs: Vital Signs: Last Vital Signs Temp 96.8 F 05/28/24 07:35 Pulse 75 05/28/24 07:35 Resp 16 05/28/24 07:35 BP 147/79 H 05/28/24 07:35 Pulse Ox 97 05/28/24 07:35 O2 Del Method Room Air 05/28/24 07:35 BMI result Body Mass Index 43.4 Gen: in no acute distress HEENT: sclera anicteric, moist mucus membranes Neck: supple Lungs: clear to auscultation bilaterally Heart: regular rate and rhythm, no murmurs Abd: soft, non-tender, non-distended, obese : L flank tenderness, CHARLENE draining seropurulent fluid Ext: no edema Skin: warm/well-perfused Neuro: alert and oriented x3, no focal findings Psych: appropriate affect Objective Data Active Medications Acetaminophen (Acetaminophen 325 Mg Tablet) 650 mg PO Q6H PRN PRN Reason: Pain, Mild (Pain Scale 1-3), fever or headache Albuterol Sulfate (Albuterol Sulfate 90 Mcg 8 Gm Inhaler) 2 puff INHALE Q6H PRN PRN Reason: Shortness Of Breath Or Wheezing Last Admin: 05/24/24 13:10 Dose: 2 puff Documented By: YURIDIA Allopurinol (Allopurinol 100 Mg Tablet) 100 mg PO DAILY [facility] Last Admin: 05/28/24 08:11 Dose: 100 mg Documented By: YURIDIA Atorvastatin Calcium (Atorvastatin Calcium 20 Mg Tablet) 20 mg PO BEDTIME [facility] Last Admin: 05/27/24 20:29 Dose: 20 mg Documented By: SARA Calcium Carbonate (Calcium Carbonate 750 Mg Tab.Chew) 750 mg PO Q4H PRN PRN Reason: Heartburn Escitalopram Oxalate (Escitalopram Oxalate 20 Mg Tablet) 20 mg PO DAILY [facility] Last Admin: 05/28/24 08:12 Dose: 20 mg Documented By: YURIDIA Ferrous Sulfate (Ferrous Sulfate 324 Mg Tablet.) 324 mg PO BID [facility] Last Admin: 05/28/24 08:12 Dose: 324 mg Documented By: YURIDIA Fluticasone/Vilanterol (Fluticasone/Vilanterol 200/25 Blst.W.Dev) 1 puff INHALE RDAILY [facility] Last Admin: 05/28/24 07:37 Dose: Not Given Documented By: RODRIGO Non-Admin Reason: Patient Refused Glucose (Glucose Gel 15 Gm Gel..Gram.) 15 gm PO Q15M PRN; Protocol PRN Reason: per Hypoglycemia Standing Ord. Piperacillin Sod/Tazobactam (Sod 4.5 gm/ Sodium Chloride) 100 mls @ 200 mls/hr IV Q6H [facility] Last Infusion: 05/28/24 06:56 Dose: Infused Documented By: YURIDIA Dextrose (D10) 250 mls @ 750 mls/hr IV Q15M PRN; Protocol PRN Reason: per Hypoglycemia Standing Ord. Insulin Human Lispro (Insulin Lispro 100 Unit/Ml 3 Ml Vial) 0 unit SUBCUT QIDACHS [facility]; Protocol Last Admin: 05/28/24 08:08 Dose: Not Given Documented By: YURIDIA Non-Admin Reason: No Insulin Coverage Lisinopril (Lisinopril 20 Mg Tablet) 20 mg PO DAILY [facility]; Protocol Last Admin: 05/28/24 08:11 Dose: 20 mg Documented By: YURIDIA Magnesium Hydroxide (Milk Of Magnesia 30 Ml Oral.Susp) 30 ml PO DAILY PRN PRN Reason: Constipation Meclizine HCl (Meclizine Hcl 25 Mg Tablet) 25 mg PO DAILY PRN PRN Reason: Vertigo Melatonin (Melatonin 3 Mg Tablet) 6 mg PO BEDTIME PRN PRN Reason: Insomnia Last Admin: 05/27/24 20:28 Dose: 6 mg Documented By: SARA Montelukast Sodium (Montelukast Sodium 10 Mg Tablet) 10 mg PO BEDTIME [facility] Last Admin: 05/27/24 20:29 Dose: 10 mg Documented By: SARA Morphine Sulfate (Morphine Sulfate 4 Mg/Ml Cartridge) 4 mg IVPUSH Q6H PRN; Protocol PRN Reason: Pain, Severe (Pain Scale 7-10) Last Admin: 05/27/24 19:19 Dose: 4 mg Documented By: SARA Ondansetron HCl (Ondansetron Hcl 4 Mg/2 Ml Vial) 4 mg IVPUSH Q4H PRN PRN Reason: Nausea and Vomiting Sodium Chloride (0.9 % Sodium Chloride Flush 3 Ml Syringe) 3 ml IVFLUSH QSHIFT [facility] Last Admin: 05/28/24 08:12 Dose: 3 ml Documented By: YURIDIA Labs 05/27/24 05:32 05/28/24 06:03 Labs: Laboratory Results - last 24 hr 05/27/24 05/27/24 05/27/24 11:05 16:16 19:56 Hold Purple Top Anion Gap Estim Creat Clear Calc Estimated GFR POC Glucose 149 H 114 171 H Random Glucose Calcium 05/28/24 05/28/24 06:03 07:40 Hold Purple Top SEE NOTE Anion Gap 12 Estim Creat Clear Calc 72.8 Estimated GFR 49 POC Glucose 108 Random Glucose 110 Calcium 8.9 D Microbiology Microbiology Results: Microbiology 05/25/24 15:05 Gram Stain - Final Kidney - Abscess Routine Culture - Preliminary Culture in progress. Anaerobic Culture - Preliminary Culture in progress. 05/25/24 22:17 Gram Stain - Final Abdominal Fluid Routine Culture - Preliminary Culture in progress. Anaerobic Culture - Preliminary Culture in progress. Assessment and Plan (1) Perinephric abscess: Status: Acute (2) Hematoma of kidney: Status: Acute Plan d6 53yo F with hx staghorn calculus s/p ureteral stenting complicated by subcapsular hematoma, DM2, obesity, HTN, asthma, HLD presenting with chills and flank pain, found to have complex fluid collection along the lateral aspect of the left kidney with gas perinephric abscess complicated UTI - per Gen Surg, doubt fistula to colon [but should have outpt colonoscopy]; Surg and Uro consulted, CT-guided aspiration done 05/25/24; prn IV morphine for severe pain - pip-juan antonio d5, ID consult pending, follow fluid culture [Gram stained for gram-positive cocci], CHARLENE in place until output <30 mL/24hr hypoK - repleted DM2 - correction-dose lispro, DM diet HTN - continue lisinopril asthma - continue montelukast, Symbicort HLD - continue statin morbid obesity - diet/exercise counseling VTE ppx - SCDs dispo - eventual home In my clinical judgment, the patient requires continued inpatient hospitalization for the following reasons: IV ABX Total time managing care of this patient today: 35 minutes. Quality Stroke Does the patient have a stroke diagnosis?: No VTE Prior VTE?: No VTE Risk Level:: Medical - moderate - high VTE Device Contraindication: N/A - Device Ordered VTE Drug Contraindication: Treatment Not Indicated
[2024-05-28 11:33] LABS: Glucose, Whole Blood 126 mg/dL (60-115)
--- NOTE | 2024-05-28 12:31 | P.PNGS_ITS ---
Subjective Subjective Date of Service: 05/28/24 Interval history: Patient feeling okay getting bored. Concerned by how much time she spent off of work with this entire illness process. But denies any fevers chills eating drinking having bowel Physical Exam 2 Vital Signs: Vital Signs: Last Vital Signs Temp 96.8 F 05/28/24 07:35 Pulse 75 05/28/24 07:35 Resp 16 05/28/24 07:35 BP 147/79 H 05/28/24 07:35 Pulse Ox 97 05/28/24 07:35 O2 Del Method Room Air 05/28/24 07:35 BMI result Body Mass Index 43.4 Const: General: cooperative, healthy appearing, comfortable and no acute distress GI: Other: Abdomen is soft nondistended nontender. Objective Data Active Medications Acetaminophen (Acetaminophen 325 Mg Tablet) 650 mg PO Q6H PRN PRN Reason: Pain, Mild (Pain Scale 1-3), fever or headache Albuterol Sulfate (Albuterol Sulfate 90 Mcg 8 Gm Inhaler) 2 puff INHALE Q6H PRN PRN Reason: Shortness Of Breath Or Wheezing Last Admin: 05/24/24 13:10 Dose: 2 puff Documented By: YURIDIA Allopurinol (Allopurinol 100 Mg Tablet) 100 mg PO DAILY [facility] Last Admin: 05/28/24 08:11 Dose: 100 mg Documented By: YURIDIA Atorvastatin Calcium (Atorvastatin Calcium 20 Mg Tablet) 20 mg PO BEDTIME [facility] Last Admin: 05/27/24 20:29 Dose: 20 mg Documented By: SARA Calcium Carbonate (Calcium Carbonate 750 Mg Tab.Chew) 750 mg PO Q4H PRN PRN Reason: Heartburn Escitalopram Oxalate (Escitalopram Oxalate 20 Mg Tablet) 20 mg PO DAILY [facility] Last Admin: 05/28/24 08:12 Dose: 20 mg Documented By: YURIDIA Ferrous Sulfate (Ferrous Sulfate 324 Mg Tablet.Dr) 324 mg PO BID [facility] Last Admin: 05/28/24 08:12 Dose: 324 mg Documented By: YURIDIA Fluticasone/Vilanterol (Fluticasone/Vilanterol 200/25 Blst.W.Dev) 1 puff INHALE RDAILY [facility] Last Admin: 05/28/24 07:37 Dose: Not Given Documented By: HO.FEYRES Non-Admin Reason: Patient Refused Glucose (Glucose Gel 15 Gm Gel..Gram.) 15 gm PO Q15M PRN; Protocol PRN Reason: per Hypoglycemia Standing Ord. Piperacillin Sod/Tazobactam (Sod 4.5 gm/ Sodium Chloride) 100 mls @ 200 mls/hr IV Q6H [facility] Last Infusion: 05/28/24 06:56 Dose: Infused Documented By: YURIDIA Dextrose (D10) 250 mls @ 750 mls/hr IV Q15M PRN; Protocol PRN Reason: per Hypoglycemia Standing Ord. Insulin Human Lispro (Insulin Lispro 100 Unit/Ml 3 Ml Vial) 0 unit SUBCUT QIDACHS [facility]; Protocol Last Admin: 05/28/24 11:39 Dose: Not Given Documented By: YURIDIA Non-Admin Reason: No Insulin Coverage Lisinopril (Lisinopril 20 Mg Tablet) 20 mg PO DAILY [facility]; Protocol Last Admin: 05/28/24 08:11 Dose: 20 mg Documented By: YURIDIA Magnesium Hydroxide (Milk Of Magnesia 30 Ml Oral.Susp) 30 ml PO DAILY PRN PRN Reason: Constipation Meclizine HCl (Meclizine Hcl 25 Mg Tablet) 25 mg PO DAILY PRN PRN Reason: Vertigo Melatonin (Melatonin 3 Mg Tablet) 6 mg PO BEDTIME PRN PRN Reason: Insomnia Last Admin: 05/27/24 20:28 Dose: 6 mg Documented By: SARA Montelukast Sodium (Montelukast Sodium 10 Mg Tablet) 10 mg PO BEDTIME [facility] Last Admin: 05/27/24 20:29 Dose: 10 mg Documented By: SARA Morphine Sulfate (Morphine Sulfate 4 Mg/Ml Cartridge) 4 mg IVPUSH Q6H PRN; Protocol PRN Reason: Pain, Severe (Pain Scale 7-10) Last Admin: 05/27/24 19:19 Dose: 4 mg Documented By: SARA Ondansetron HCl (Ondansetron Hcl 4 Mg/2 Ml Vial) 4 mg IVPUSH Q4H PRN PRN Reason: Nausea and Vomiting Sodium Chloride (0.9 % Sodium Chloride Flush 3 Ml Syringe) 3 ml IVFLUSH [facility] Last Admin: 05/28/24 08:12 Dose: 3 ml Documented By: YURIDIA Labs 05/27/24 05:32 05/28/24 06:03 Labs: Laboratory Results - last 24 hr 05/27/24 05/27/24 05/28/24 16:16 19:56 06:03 Hold Purple Top SEE NOTE Anion Gap 12 Estim Creat Clear Calc 72.8 Estimated GFR 49 POC Glucose 114 171 H Random Glucose 110 Calcium 8.9 D 05/28/24 05/28/24 07:40 11:18 Hold Purple Top Anion Gap Estim Creat Clear Calc Estimated GFR POC Glucose 108 126 H Random Glucose Calcium Microbiology Microbiology Results: Microbiology 05/25/24 15:05 Gram Stain - Final Kidney - Abscess Routine Culture - Preliminary Gram negative martine Anaerobic Culture - Preliminary Culture in progress. 05/25/24 22:17 Gram Stain - Final Abdominal Fluid Routine Culture - Preliminary Gram negative martine Anaerobic Culture - Preliminary Culture in progress. Procedures Date of Service Date of Service: 05/28/24 Progress Note: A&P Assessment and plan (1) Perinephric abscess: Status: Acute Assessment and Plan: Patient doing better drain putting out still a fair amount of purulent material but it is coming out she has been afebrile. Plan to continue medical management with drainage and IV antibiotics specific to whatever organism show up growing from the drainage area. Hemodynamically the patient is doing well and clinically better. No surgical intervention needed at this point in Time Spent With Patient Time: Total time managing care of this patient today ____ minutes. Quality Stroke Does the patient have a stroke diagnosis?: No VTE Prior VTE?: No VTE Risk Level:: Medical - moderate - high VTE Device Contraindication: N/A - Device Ordered VTE Drug Contraindication: Treatment Not Indicated
--- NOTE | 2024-05-28 13:47 | W.PM.IDCN ---
History of Present Illness Data of Consult Service Date: 05/27/24 Requesting physician: Henny Gamble Primary Care Provider: Eva Galarza MD [facility] Reason for consult: perinephric abscess, gram negative to be identified She presents with 9/10 left flank discomfort. She has has left stent December 2023 for staghorn calculi. She has seen Dr Bonilla. She has discomfort last couple months and has left subcapsular hematoma left kidney She has fluid drained by IR and shows gram negative rods. Review of Systems Review of Systems: Yes all other systems are reviewed and are negative PMFSH Past Medical History Medical History Hematoma of kidney Perinephric hematoma Asthma Benign paroxysmal positional vertigo Obesity Cataract CKD (chronic kidney disease) Depression HLD (hyperlipidemia) Diabetes HTN (hypertension) Sleep apnea History of kidney stones History of in vitro fertilization Family History Family History Father Cancer Mother Epilepsia Dementia Brother Drug abuse Bipolar 1 disorder Son No problems noted. Family history: reviewed and not pertinent Surgical History Surgical History H/O breast biopsy History of ureteroscopy Hx of ectopic History of open heart surgery Social History Social History Household Members: Spouse and Children Housing: House Do you presently have visiting nurse or other home services: No Alcohol intake: never Patient Tobacco Use Status: Never used Tobacco Advance Directives Date on File: 04/12/24 service: No Meds Allergies Allergy/AdvReac Type Severity Reaction Status Date / Time sulfamethoxazole Allergy Mild Hives Verified 05/23/24 13:01 [From Bactrim] trimethoprim [From Bactrim] Allergy Unknown Anaphylaxis Verified 05/23/24 13:01 FISH Allergy Unknown Anaphylaxis Uncoded 05/23/24 13:01 Active Medications: Current Medications Acetaminophen (Acetaminophen 325 Mg Tablet) 650 mg PO Q6H PRN PRN Reason: Pain, Mild (Pain Scale 1-3), fever or headache Albuterol Sulfate (Albuterol Sulfate 90 Mcg 8 Gm Inhaler) 2 puff INHALE Q6H PRN PRN Reason: Shortness Of Breath Or Wheezing Last Admin: 05/24/24 13:10 Dose: 2 puff Allopurinol (Allopurinol 100 Mg Tablet) 100 mg PO DAILY [facility] Last Admin: 05/28/24 08:11 Dose: 100 mg Atorvastatin Calcium (Atorvastatin Calcium 20 Mg Tablet) 20 mg PO BEDTIME [facility] Last Admin: 05/27/24 20:29 Dose: 20 mg Calcium Carbonate (Calcium Carbonate 750 Mg Tab.Chew) 750 mg PO Q4H PRN PRN Reason: Heartburn Escitalopram Oxalate (Escitalopram Oxalate 20 Mg Tablet) 20 mg PO DAILY [facility] Last Admin: 05/28/24 08:12 Dose: 20 mg Ferrous Sulfate (Ferrous Sulfate 324 Mg Tablet.Dr) 324 mg PO BID [facility] Last Admin: 05/28/24 08:12 Dose: 324 mg Fluticasone/Vilanterol (Fluticasone/Vilanterol 200/25 Blst.W.Dev) 1 puff INHALE RDAILY [facility] Last Admin: 05/28/24 07:37 Dose: Not Given Glucose (Glucose Gel 15 Gm Gel..Gram.) 15 gm PO Q15M PRN; Protocol PRN Reason: per Hypoglycemia Standing Ord. Piperacillin Sod/Tazobactam (Sod 4.5 gm/ Sodium Chloride) 100 mls @ 200 mls/hr IV Q6H [facility] Last Infusion: 05/28/24 13:21 Dose: Infused Dextrose (D10) 250 mls @ 750 mls/hr IV Q15M PRN; Protocol PRN Reason: per Hypoglycemia Standing Ord. Insulin Human Lispro (Insulin Lispro 100 Unit/Ml 3 Ml Vial) 0 unit SUBCUT QIDACHS [facility]; Protocol Last Admin: 05/28/24 11:39 Dose: Not Given Lisinopril (Lisinopril 20 Mg Tablet) 20 mg PO DAILY [facility]; Protocol Last Admin: 05/28/24 08:11 Dose: 20 mg Magnesium Hydroxide (Milk Of Magnesia 30 Ml Oral.Susp) 30 ml PO DAILY PRN PRN Reason: Constipation Meclizine HCl (Meclizine Hcl 25 Mg Tablet) 25 mg PO DAILY PRN PRN Reason: Vertigo Melatonin (Melatonin 3 Mg Tablet) 6 mg PO BEDTIME PRN PRN Reason: Insomnia Last Admin: 05/27/24 20:28 Dose: 6 mg Montelukast Sodium (Montelukast Sodium 10 Mg Tablet) 10 mg PO BEDTIME [facility] Last Admin: 05/27/24 20:29 Dose: 10 mg Morphine Sulfate (Morphine Sulfate 4 Mg/Ml Cartridge) 4 mg IVPUSH Q6H PRN; Protocol PRN Reason: Pain, Severe (Pain Scale 7-10) Last Admin: 05/27/24 19:19 Dose: 4 mg Ondansetron HCl (Ondansetron Hcl 4 Mg/2 Ml Vial) 4 mg IVPUSH Q4H PRN PRN Reason: Nausea and Vomiting Sodium Chloride (0.9 % Sodium Chloride Flush 3 Ml Syringe) [facility] Last Admin: 05/28/24 08:12 Dose: 3 ml Home Medications ?Medication ?Instructions ?Recorded ?Confirmed ?Last Taken ?Type albuterol sulfate 90 mcg/actuation 2 puff inhalation Q6H PRN 09/17/23 05/24/24 Unknown History aerosol inhaler (Ventolin HFA) Shortness Of Breath Or Wheezing citalopram 40 mg tablet 40 mg PO DAILY 09/17/23 05/24/24 04/05/24 History lisinopril 20 mg tablet 20 mg PO DAILY 09/17/23 05/24/24 04/05/24 History meclizine 25 mg tablet 25 mg PO DAILY PRN Vertigo 09/17/23 05/24/24 04/05/24 History simvastatin 40 mg tablet 40 mg PO BEDTIME 09/17/23 05/24/24 04/05/24 History tirzepatide 7.5 mg/0.5 mL 7.5 mg subcut WE@0900 03/02/24 05/24/24 04/02/24 History subcutaneous pen injector (Mounjaro) allopurinol 100 mg tablet 100 mg PO DAILY 05/24/24 05/24/24 Unknown History budesonide-formoterol HFA 160 2 puff inhalation BID 05/24/24 05/24/24 Unknown History mcg-4.5 mcg/actuation aerosol inhaler (Symbicort) ferrous sulfate 324 mg (65 mg 324 mg PO BID 05/24/24 05/24/24 Unknown History iron) tablet,delayed release glipizide 5 mg tablet, extended 5 mg PO DAILY 05/24/24 05/24/24 Unknown History release 24 hr metformin 1,000 mg tablet 1,000 mg PO BID 05/24/24 05/24/24 Unknown History montelukast 10 mg tablet 10 mg PO BEDTIME 05/24/24 05/24/24 Unknown History norethindrone acetate 5 mg tablet 5 mg PO DAILY 05/24/24 05/24/24 Unknown History ondansetron 4 mg disintegrating 4 mg PO Q8H PRN nausea/vomiting 05/24/24 05/24/24 Unknown History tablet potassium citrate 10 mEq (1,080 20 meq PO BID 05/24/24 05/24/24 Unknown History mg) tablet,extended release Physical Exam Vital Signs: Vital Signs: Last Vital Signs Temp 96.8 F 05/28/24 07:35 Pulse 75 05/28/24 07:35 Resp 16 05/28/24 07:35 BP 147/79 H 05/28/24 07:35 Pulse Ox 97 05/28/24 07:35 O2 Del Method Room Air 05/28/24 07:35 BMI result Body Mass Index 43.4 Const: General: cooperative HEENT: Head: Yes normal to inspection Face and sinus: Yes normal facial exam Mouth: Normal oral and palatal mucosa present Teeth and gingiva: dentition normal Eyes: General: appearance normal, both eyes and all related structures Pupils: Equal, round and reactive pupils present Resp: Effort & Inspection: normal respiratory effort Cardio: Rate: regular rate Rhythm: regular rhythm GI: Palpation (GI): Soft to palpation and nontender : General: Yes CVA tenderness on the left Back/Spine/Pelvis: Back: CVA tenderness Skin: General skin exam: no rashes or lesions noted Neuro: General: moves all extremities Cranial nerves: Yes Equal, round and reactive pupils present Extrem: General: Yes normal to inspection Psych: Appearance: grossly normal Results Labs 05/27/24 05:32 05/28/24 06:03 Labs: BMP 05/28/24 06:03 Sodium 139 Potassium 3.7 Chloride 101 Carbon Dioxide 30 H BUN 5 L Creatinine 1.15 Calcium 8.9 D Microbiology Microbiology Results: Microbiology 05/25/24 15:05 Kidney - Abscess Gram Stain - Final 05/25/24 15:05 Kidney - Abscess Routine Culture - Preliminary Gram negative martine 05/25/24 15:05 Kidney - Abscess Anaerobic Culture - Preliminary Culture in progress. 05/25/24 22:17 Abdominal Fluid Gram Stain - Final 05/25/24 22:17 Abdominal Fluid Routine Culture - Preliminary Gram negative martine 05/25/24 22:17 Abdominal Fluid Anaerobic Culture - Preliminary Culture in progress. 05/23/24 21:22 Blood - Venous Blood Culture - Preliminary No growth after 48 hours. 05/23/24 21:03 Blood - Venous Blood Culture - Preliminary No growth after 48 hours. 05/23/24 Unknown Urine clean catch - Clean Catch Midstream Urine Culture - Final Assessment and Plan (1) Chronic flank pain: Status: Acute (2) Perinephric abscess: Status: Acute Plan She has gram negative organisms perinephric fluid. There is possibility of resistant bacteria. There could be ESBL bacteria. Blood cultures have been negative Agree with piperacillin/tazobactam in case resistant infection. Await cultures.
[2024-05-28 15:33] VITALS: BP 136/77; PULSE 79; RESP 20; TEMP 36.2; O2SAT 96
[2024-05-28 16:33] LABS: Glucose, Whole Blood 151 mg/dL (60-115)
[2024-05-28] MEDS: Insulin Lispro 100 UNIT/ML 3 ML VIAL SUBCUT (17:03)
[2024-05-28 19:16] LABS: Glucose, Whole Blood 127 mg/dL (60-115)
[2024-05-28 19:45] VITALS: BP 145/76; PULSE 76; RESP 18; TEMP 36.2; O2SAT 97
[2024-05-28] MEDS: Montelukast Sodium 10 MG TABLET PO (20:37)
[2024-05-28] MEDS: Atorvastatin Calcium 20 MG TABLET PO (20:38)
[2024-05-29] MEDS: 0.9 % Sodium Chloride Flush 3 ML SYRINGE IVFLUSH ×4 (01:03→21:28)
[2024-05-29 03:43] VITALS: BP 141/84; PULSE 68; RESP 18; TEMP 36.2; O2SAT 98
[2024-05-29] MEDS: Piperacillin Sodium/Tazobactam 4.5 GM in 0.9 % Sodium Chloride 100 ML IV ×4 (05:36→17:33)
[2024-05-29 07:01] LABS: Anion Gap 11 (12-20); Blood Urea Nitrogen 5 mg/dL (9-16); C Reactive Protein 4.26 mg/dL (< or = 0.50); Calcium 8.7 mg/dL (8.4-10.2); Carbon Dioxide 30 mmol/L (22-29); Chloride 104 mmol/L (96-108); Creatinine Clr Calc Pharmacy 73.4; Estimated Glomerular Filt Rate 50; Glucose Random 106 mg/dL (60-115); Potassium 3.4 mmol/L (3.3-5.1); Sodium 142 mmol/L (135-145)
[2024-05-29 07:21] VITALS: BP 136/88; PULSE 70; RESP 16; TEMP 36.6; O2SAT 98
[2024-05-29 07:27] LABS: Glucose, Whole Blood 111 mg/dL (60-115)
[2024-05-29] MEDS: Escitalopram Oxalate 20 MG TABLET PO (08:05)
[2024-05-29] MEDS: lisinopriL 20 MG TABLET PO (08:05)
[2024-05-29] MEDS: Ferrous Sulfate 324 MG TABLET.DR PO ×2 (08:05→21:25)
[2024-05-29] MEDS: allopurinoL 100 MG TABLET PO (08:05)
[2024-05-29 08:09] VITALS: PULSE 70; RESP 16; O2SAT 94
[2024-05-29] MEDS: Fluticasone/Vilanterol 200/25 BLST.W.DEV 1 PUFF INHALE (08:09)
--- NOTE | 2024-05-29 08:26 | HO.PM.IMPN ---
Subjective Subjective Date of Service: 05/29/24 Interval History: dull L flank ache CHARLENE drain still putting out 100+ mL of purulent material/24hr; growing GNRs no fever or chills Review of Systems Review of Systems: Yes all other systems are reviewed and are negative Physical Exam Vital Signs: Vital Signs: Last Vital Signs Temp 97.8 F 05/29/24 07:21 Pulse 70 05/29/24 08:09 Resp 16 05/29/24 08:09 BP 136/88 05/29/24 07:21 Pulse Ox 98 05/29/24 07:21 O2 Del Method Room Air 05/29/24 07:21 BMI result Body Mass Index 43.4 Gen: in no acute distress HEENT: sclera anicteric, moist mucus membranes Neck: supple Lungs: clear to auscultation bilaterally Heart: regular rate and rhythm, no murmurs Abd: soft, non-tender, non-distended, obese : L flank tenderness, CHARLENE draining seropurulent fluid Ext: no edema Skin: warm/well-perfused Neuro: alert and oriented x3, no focal findings Psych: appropriate affect Objective Data Active Medications Acetaminophen (Acetaminophen 325 Mg Tablet) 650 mg PO Q6H PRN PRN Reason: Pain, Mild (Pain Scale 1-3), fever or headache Albuterol Sulfate (Albuterol Sulfate 90 Mcg 8 Gm Inhaler) 2 puff INHALE Q6H PRN PRN Reason: Shortness Of Breath Or Wheezing Last Admin: 05/24/24 13:10 Dose: 2 puff Documented By: YURIDIA Allopurinol (Allopurinol 100 Mg Tablet) 100 mg PO DAILY [facility] Last Admin: 05/29/24 08:05 Dose: 100 mg Documented By: YURIDIA Atorvastatin Calcium (Atorvastatin Calcium 20 Mg Tablet) 20 mg PO BEDTIME [facility] Last Admin: 05/28/24 20:38 Dose: 20 mg Documented By: SARA Calcium Carbonate (Calcium Carbonate 750 Mg Tab.Chew) 750 mg PO Q4H PRN PRN Reason: Heartburn Escitalopram Oxalate (Escitalopram Oxalate 20 Mg Tablet) 20 mg PO DAILY [facility] Last Admin: 05/29/24 08:05 Dose: 20 mg Documented By: YURIDIA Ferrous Sulfate (Ferrous Sulfate 324 Mg Tablet.) 324 mg PO BID [facility] Last Admin: 05/29/24 08:05 Dose: 324 mg Documented By: YURIDIA Fluticasone/Vilanterol (Fluticasone/Vilanterol 200/25 Blst.W.Dev) 1 puff INHALE RDAILY [facility] Last Admin: 05/29/24 08:09 Dose: 1 puff Documented By: RODRIGO Glucose (Glucose Gel 15 Gm Gel..Gram.) 15 gm PO Q15M PRN; Protocol PRN Reason: per Hypoglycemia Standing Ord. Piperacillin Sod/Tazobactam (Sod 4.5 gm/ Sodium Chloride) 100 mls @ 200 mls/hr IV Q6H [facility] Last Infusion: 05/29/24 06:06 Dose: Infused Documented By: SARA Dextrose (D10) 250 mls @ 750 mls/hr IV Q15M PRN; Protocol PRN Reason: per Hypoglycemia Standing Ord. Insulin Human Lispro (Insulin Lispro 100 Unit/Ml 3 Ml Vial) 0 unit SUBCUT QIDACHS [facility]; Protocol Last Admin: 05/29/24 07:35 Dose: Not Given Documented By: YURIDIA Non-Admin Reason: No Insulin Coverage Lisinopril (Lisinopril 20 Mg Tablet) 20 mg PO DAILY [facility]; Protocol Last Admin: 05/29/24 08:05 Dose: 20 mg Documented By: YURIDIA Magnesium Hydroxide (Milk Of Magnesia 30 Ml Oral.Susp) 30 ml PO DAILY PRN PRN Reason: Constipation Meclizine HCl (Meclizine Hcl 25 Mg Tablet) 25 mg PO DAILY PRN PRN Reason: Vertigo Melatonin (Melatonin 3 Mg Tablet) 6 mg PO BEDTIME PRN PRN Reason: Insomnia Last Admin: 05/27/24 20:28 Dose: 6 mg Documented By: SARA Montelukast Sodium (Montelukast Sodium 10 Mg Tablet) 10 mg PO BEDTIME [facility] Last Admin: 05/28/24 20:37 Dose: 10 mg Documented By: SARA Morphine Sulfate (Morphine Sulfate 4 Mg/Ml Cartridge) 4 mg IVPUSH Q6H PRN; Protocol PRN Reason: Pain, Severe (Pain Scale 7-10) Last Admin: 05/27/24 19:19 Dose: 4 mg Documented By: SARA Ondansetron HCl (Ondansetron Hcl 4 Mg/2 Ml Vial) 4 mg IVPUSH Q4H PRN PRN Reason: Nausea and Vomiting Sodium Chloride (0.9 % Sodium Chloride Flush 3 Ml Syringe) 3 ml IVFLUSH QSHIFT [facility] Last Admin: 05/29/24 08:05 Dose: 3 ml Documented By: YURIDIA Labs 05/27/24 05:32 05/29/24 05:54 Labs: Laboratory Results - last 24 hr 05/28/24 05/28/24 05/28/24 11:18 16:29 19:11 Hold Purple Top Anion Gap Estim Creat Clear Calc Estimated GFR POC Glucose 126 H 151 H 127 H Random Glucose Calcium C-Reactive Protein 05/29/24 05/29/24 05:54 07:23 Hold Purple Top SEE NOTE Anion Gap 11 L Estim Creat Clear Calc 73.4 Estimated GFR 50 POC Glucose 111 Random Glucose 106 Calcium 8.7 C-Reactive Protein 4.26 H Microbiology 05/23/24 21:22 Blood - Venous Blood Culture - Final No growth after 5 days. 05/23/24 21:03 Blood - Venous Blood Culture - Final No growth after 5 days. 05/25/24 15:05 Kidney - Abscess Gram Stain - Final 05/25/24 15:05 Kidney - Abscess Routine Culture - Preliminary Gram negative martine 05/25/24 15:05 Kidney - Abscess Anaerobic Culture - Preliminary Culture in progress. 05/25/24 22:17 Abdominal Fluid Gram Stain - Final 05/25/24 22:17 Abdominal Fluid Routine Culture - Preliminary Gram negative martine 05/25/24 22:17 Abdominal Fluid Anaerobic Culture - Preliminary Culture in progress. 05/23/24 Unknown Urine clean catch - Clean Catch Midstream Urine Culture - Final Microbiology Microbiology Results: Microbiology 05/23/24 21:22 Blood Culture - Final Blood - Venous No growth after 5 days. 05/23/24 21:03 Blood Culture - Final Blood - Venous No growth after 5 days. 05/25/24 15:05 Gram Stain - Final Kidney - Abscess Routine Culture - Preliminary Gram negative martine Anaerobic Culture - Preliminary Culture in progress. 05/25/24 22:17 Gram Stain - Final Abdominal Fluid Routine Culture - Preliminary Gram negative martine Anaerobic Culture - Preliminary Culture in progress. Assessment and Plan (1) Perinephric abscess: Status: Acute (2) Hematoma of kidney: Status: Acute Plan d7 53yo F with hx staghorn calculus s/p ureteral stenting complicated by subcapsular hematoma, DM2, obesity, HTN, asthma, HLD presenting with chills and flank pain, found to have complex fluid collection along the lateral aspect of the left kidney with gas perinephric abscess complicated UTI - per Gen Surg, doubt fistula to colon [but should have outpt colonoscopy]; Gen Surg and Uro consulted; CT-guided aspiration done 05/25/24 - pip-juan antonio d6, ID consult pending, follow fluid cultures [growing GNRs], CHARLENE in place until output <30 mL/24hr - adjust antibiotic pending GNR speciation/sensitivity; may need to home with CHARLENE drain hypoK - repleted DM2 - correction-dose lispro, DM diet HTN - continue lisinopril asthma - continue montelukast, Symbicort HLD - continue statin morbid obesity - diet/exercise counseling VTE ppx - SCDs dispo - eventual home In my clinical judgment, the patient requires continued inpatient hospitalization for the following reasons: IV ABX pending organism identification/susceptibilities Total time managing care of this patient today: 35 minutes. Quality Stroke Does the patient have a stroke diagnosis?: No VTE Prior VTE?: No VTE Risk Level:: Medical - moderate - high VTE Device Contraindication: N/A - Device Ordered VTE Drug Contraindication: Treatment Not Indicated
[2024-05-29 11:16] LABS: Glucose, Whole Blood 129 mg/dL (60-115)
[2024-05-29 15:26] VITALS: BP 132/67; PULSE 76; RESP 20; TEMP 36.4; O2SAT 96
[2024-05-29 16:10] LABS: Glucose, Whole Blood 132 mg/dL (60-115)
[2024-05-29 19:29] VITALS: BP 156/77; PULSE 80; RESP 18; TEMP 36.2; O2SAT 98
[2024-05-29 20:04] LABS: Glucose, Whole Blood 166 mg/dL (60-115)
[2024-05-29] MEDS: Melatonin 3 MG TABLET 6 MG PO (21:25)
[2024-05-29] MEDS: Acetaminophen 325 MG TABLET 650 MG PO (21:25)
[2024-05-29] MEDS: Montelukast Sodium 10 MG TABLET PO (21:25)
[2024-05-29] MEDS: Atorvastatin Calcium 20 MG TABLET PO (21:25)
[2024-05-29] MEDS: Insulin Lispro 100 UNIT/ML 3 ML VIAL SUBCUT (21:25)
[2024-05-30] MEDS: Piperacillin Sodium/Tazobactam 4.5 GM in 0.9 % Sodium Chloride 100 ML IV ×2 (00:45→06:14)
[2024-05-30 04:00] VITALS: BP 170/78; PULSE 73; RESP 18; TEMP 36.1; O2SAT 98
--- NOTE | 2024-05-30 06:17 | PC.NURSE ---
total CHARLENE output overnight (19:00-07:00 - 40cc). IV replaced r/t painful flushing. no other events overnight, all needs met, call berry in reach.
[2024-05-30 07:20] LABS: Glucose, Whole Blood 98 mg/dL (60-115)
[2024-05-30] MEDS: cefTRIAXone sodium 1 GM in 0.9 % Sodium Chloride 50 ML IV (07:45)
[2024-05-30] MEDS: 0.9 % Sodium Chloride Flush 3 ML SYRINGE IVFLUSH ×2 (07:45→16:12)
[2024-05-30 07:47] VITALS: BP 139/79; PULSE 67; RESP 16; TEMP 36.5; O2SAT 99
[2024-05-30] MEDS: Fluticasone/Vilanterol 200/25 BLST.W.DEV 1 PUFF INHALE (08:09)
[2024-05-30 08:10] VITALS: PULSE 71; RESP 16; O2SAT 97
[2024-05-30 08:37] VITALS: BP 139/79
[2024-05-30] MEDS: allopurinoL 100 MG TABLET PO (08:37)
[2024-05-30] MEDS: Escitalopram Oxalate 20 MG TABLET PO (08:37)
[2024-05-30] MEDS: Ferrous Sulfate 324 MG TABLET.DR PO ×2 (08:37→20:37)
[2024-05-30] MEDS: lisinopriL 20 MG TABLET PO (08:37)
[2024-05-30] MEDS: Clindamycin Phosphate/D5W 600 MG/50 ML PIGGYBACK 100 MG IV (08:38)
--- NOTE | 2024-05-30 11:11 | MHC.CM.PN ---
EMR REVIEWED AND PER MD ROUNDS, PT IS NOT MEDICALLY CLEARED FOR DC HOME (+BL. CULTURES, CHARLENE DRAINAGE) PT WILL NEED TO BE SEEN BY I.D. CM WILL CONTINUE TO FOLLOW FOR ANY CHANGE TO DC PLAN/NEEDS.
[2024-05-30 11:30] LABS: Glucose, Whole Blood 109 mg/dL (60-115)
--- NOTE | 2024-05-30 13:38 | HO.PM.IMPN ---
Subjective Subjective Date of Service: 05/30/24 Interval History: Denies fever, no chills, tolerating diet, denies lower abdominal pain mild discomfort at site of CHARLENE drain, drain output 70 mL, no acute events overnight. Review of Systems All other system are reviewed and negative. Physical Exam Vital Signs: Vital Signs: Last Vital Signs Temp 97.7 F 05/30/24 07:47 Pulse 71 05/30/24 08:10 Resp 16 05/30/24 08:10 BP 139/79 05/30/24 08:37 Pulse Ox 99 05/30/24 07:47 O2 Del Method Room Air 05/30/24 07:47 BMI result Body Mass Index 43.4 Const: Other: Gen: in no acute distress HEENT: sclera anicteric, moist mucus membranes Neck: supple Lungs: clear to auscultation bilaterally Heart: regular rate and rhythm, no murmurs Abd: soft, non-tender, non-distended, obese : No L flank tenderness, CHARLENE drain seropurulent fluid Ext: no edema Skin: warm/well-perfused Neuro: alert and oriented x3, no focal findings Psych: appropriate affect Objective Data Active Medications Acetaminophen (Acetaminophen 325 Mg Tablet) 650 mg PO Q6H PRN PRN Reason: Pain, Mild (Pain Scale 1-3), fever or headache Last Admin: 05/29/24 21:25 Dose: 650 mg Documented By: SARA Albuterol Sulfate (Albuterol Sulfate 90 Mcg 8 Gm Inhaler) 2 puff INHALE Q6H PRN PRN Reason: Shortness Of Breath Or Wheezing Last Admin: 05/24/24 13:10 Dose: 2 puff Documented By: YURIDIA Allopurinol (Allopurinol 100 Mg Tablet) 100 mg PO DAILY [facility] Last Admin: 05/30/24 08:37 Dose: 100 mg Documented By: LANCE Atorvastatin Calcium (Atorvastatin Calcium 20 Mg Tablet) 20 mg PO BEDTIME [facility] Last Admin: 05/29/24 21:25 Dose: 20 mg Documented By: SARA Calcium Carbonate (Calcium Carbonate 750 Mg Tab.Chew) 750 mg PO Q4H PRN PRN Reason: Heartburn Escitalopram Oxalate (Escitalopram Oxalate 20 Mg Tablet) 20 mg PO DAILY [facility] Last Admin: 05/30/24 08:37 Dose: 20 mg Documented By: LANCE Ferrous Sulfate (Ferrous Sulfate 324 Mg Tablet.Dr) 324 mg PO BID [facility] Last Admin: 05/30/24 08:37 Dose: 324 mg Documented By: LANCE Fluticasone/Vilanterol (Fluticasone/Vilanterol 200/25 Blst.W.Dev) 1 puff INHALE RDAILY [facility] Last Admin: 05/30/24 08:09 Dose: 1 puff Documented By: CASTOR Glucose (Glucose Gel 15 Gm Gel..Gram.) 15 gm PO Q15M PRN; Protocol PRN Reason: per Hypoglycemia Standing Ord. Dextrose (D10) 250 mls @ 750 mls/hr IV Q15M PRN; Protocol PRN Reason: per Hypoglycemia Standing Ord. Ceftriaxone Sodium 1 gm/ (Sodium Chloride) 50 mls @ 100 mls/hr IV Q24H [facility] Last Infusion: 05/30/24 08:36 Dose: Infused Documented By: LANCE Clindamycin Phosphate (Cleocin) 600 mg in 50 mls @ 100 mls/hr IV Q8H [facility] Last Infusion: 05/30/24 09:19 Dose: Infused Documented By: LANCE Insulin Human Lispro (Insulin Lispro 100 Unit/Ml 3 Ml Vial) 0 unit SUBCUT QIDACHS [facility]; Protocol Last Admin: 05/30/24 13:19 Dose: Not Given Documented By: LANCE Non-Admin Reason: No Insulin Coverage Lisinopril (Lisinopril 20 Mg Tablet) 20 mg PO DAILY [facility]; Protocol Last Admin: 05/30/24 08:37 Dose: 20 mg Documented By: LANCE Magnesium Hydroxide (Milk Of Magnesia 30 Ml Oral.Susp) 30 ml PO DAILY PRN PRN Reason: Constipation Meclizine HCl (Meclizine Hcl 25 Mg Tablet) 25 mg PO DAILY PRN PRN Reason: Vertigo Melatonin (Melatonin 3 Mg Tablet) 6 mg PO BEDTIME PRN PRN Reason: Insomnia Last Admin: 05/29/24 21:25 Dose: 6 mg Documented By: SARA Montelukast Sodium (Montelukast Sodium 10 Mg Tablet) 10 mg PO BEDTIME [facility] Last Admin: 05/29/24 21:25 Dose: 10 mg Documented By: HO.PERUSSN Morphine Sulfate (Morphine Sulfate 4 Mg/Ml Cartridge) 4 mg IVPUSH Q6H PRN; Protocol PRN Reason: Pain, Severe (Pain Scale 7-10) Last Admin: 05/27/24 19:19 Dose: 4 mg Documented By: SARA Ondansetron HCl (Ondansetron Hcl 4 Mg/2 Ml Vial) 4 mg IVPUSH Q4H PRN PRN Reason: Nausea and Vomiting Sodium Chloride (0.9 % Sodium Chloride Flush 3 Ml Syringe) 3 ml IVFLUSH QSHIFT [facility] Last Admin: 05/30/24 07:45 Dose: 3 ml Documented By: LANCE Labs 05/27/24 05:32 05/29/24 05:54 Labs: Laboratory Results - last 24 hr 05/29/24 05/29/24 05/30/24 16:06 19:33 07:11 POC Glucose 132 H 166 H 98 05/30/24 11:22 POC Glucose 109 Microbiology Microbiology Results: Microbiology 05/25/24 22:17 Gram Stain - Final Abdominal Fluid Routine Culture - Final Escherichia coli Klebsiella pneumoniae Streptococcus viridans group Anaerobic Culture - Final Bacteroides fragilis group Anaerobic gram positive cocci 05/25/24 15:05 Gram Stain - Final Kidney - Abscess Routine Culture - Final Escherichia coli Klebsiella pneumoniae Streptococcus viridans group Anaerobic Culture - Final Bacteroides fragilis group Assessment and Plan (1) Perinephric abscess: Status: Acute (2) Hematoma of kidney: Status: Acute Plan 53yo F with hx staghorn calculus s/p ureteral stenting complicated by subcapsular hematoma, DM2, obesity, HTN, asthma, HLD, presenting with chills and flank pain, found to have complex fluid collection along the lateral aspect of the left kidney with gas Left perinephric abscess complicated UTI - per Gen Surg, doubt fistula to colon [but should have outpt colonoscopy]; Gen Surg and Uro consulted; CT-guided aspiration done 05/25/24 - pip-juan antonio d7, fluid culture growing E coli, Klebsiella, Streptococcus viridans, anaerobic culture grew Bacteroides, CHARLENE with persistent 60-70 mL drainage , CHARLENE in place until output <30 mL/24hr - will DC IV Zosyn since E coli and Klebsiella resistant to penicillin, will place on IV ceftriaxone and iv falgyl , case discussed with ID she recommend total 14 days of treatment will transition to by mouth Ceftin and Flagyl upon discharge -blood cultures negative, WBC normalized. hypoK - repleted DM2 - stable blood sugars, correction-dose lispro, DM diet HTN - continue lisinopril asthma -no acute exacerbation, continue montelukast, Symbicort HLD - continue statin morbid obesity - diet/exercise counseling VTE ppx - SCDs dispo - eventual home In my clinical judgment, the patient requires continued inpatient hospitalization for the following reasons: IV ABX and persistent high CHARLENE output Total time managing care of this patient today: 35 minutes. Quality Stroke Does the patient have a stroke diagnosis?: No VTE Prior VTE?: No VTE Risk Level:: Medical - moderate - high VTE Device Contraindication: N/A - Device Ordered VTE Drug Contraindication: Treatment Not Indicated
[2024-05-30 15:28] VITALS: BP 126/77; PULSE 79; RESP 18; TEMP 36.4; O2SAT 95
[2024-05-30 16:00] LABS: Glucose, Whole Blood 119 mg/dL (60-115)
[2024-05-30] MEDS: metroNIDAZOLE/NS 500 MG/100 ML PIGGYBACK 100 MG IV (16:12)
[2024-05-30 19:21] VITALS: BP 146/84; PULSE 75; RESP 18; TEMP 36.1; O2SAT 98
[2024-05-30 20:19] LABS: Glucose, Whole Blood 140 mg/dL (60-115)
[2024-05-30] MEDS: Montelukast Sodium 10 MG TABLET PO (20:36)
[2024-05-30] MEDS: Atorvastatin Calcium 20 MG TABLET PO (20:37)
[2024-05-31] MEDS: metroNIDAZOLE/NS 500 MG/100 ML PIGGYBACK 100 MG IV ×4 (00:16→23:33)
[2024-05-31] MEDS: 0.9 % Sodium Chloride Flush 3 ML SYRINGE IVFLUSH ×4 (00:17→20:41)
[2024-05-31] MEDS: Melatonin 3 MG TABLET 6 MG PO ×2 (00:19→20:35)
[2024-05-31 03:52] VITALS: BP 160/80; PULSE 71; RESP 16; TEMP 36.1; O2SAT 97
--- NOTE | 2024-05-31 05:58 | PC.NURSE ---
no events overnight, tolerating antibiotics well. no c/o pain -sam drain put out a total of 30cc overnight, (15cc every 6 hours). all needs met, call berry in reach.
[2024-05-31 07:24] VITALS: BP 139/75; PULSE 69; RESP 16; TEMP 36; O2SAT 97
[2024-05-31 07:39] VITALS: BP 139/75
[2024-05-31] MEDS: Ferrous Sulfate 324 MG TABLET.DR PO ×2 (07:39→20:35)
[2024-05-31] MEDS: allopurinoL 100 MG TABLET PO (07:39)
[2024-05-31] MEDS: lisinopriL 20 MG TABLET PO (07:39)
[2024-05-31] MEDS: cefTRIAXone sodium 1 GM in 0.9 % Sodium Chloride 50 ML IV (07:39)
[2024-05-31] MEDS: Escitalopram Oxalate 20 MG TABLET PO (07:39)
[2024-05-31 07:50] LABS: Glucose, Whole Blood 101 mg/dL (60-115)
[2024-05-31] MEDS: Fluticasone/Vilanterol 200/25 BLST.W.DEV 1 PUFF INHALE (08:14)
[2024-05-31 08:15] VITALS: PULSE 69; RESP 19; O2SAT 97
[2024-05-31 11:26] LABS: Glucose, Whole Blood 130 mg/dL (60-115)
--- NOTE | 2024-05-31 13:26 | P.PNIM_ITS ---
Subjective Subjective Date of Service: 05/31/24 Interval History: Being followed for left perinephric abscess status post CT-guided aspiration. Offers no acute complaints, complaining of soreness at site of CHARLENE drain, denies fever, no chills, no nausea, no vomiting complaining of loose stools, persistent mucopurulent drainage . Review of Systems All other system reviewed and are negative. Physical Exam 2 Vital Signs: Vital Signs: Last Vital Signs Temp 96.8 F 05/31/24 07:24 Pulse 69 05/31/24 08:15 Resp 19 05/31/24 08:15 BP 139/75 05/31/24 07:39 Pulse Ox 97 05/31/24 07:24 O2 Del Method Room Air 05/31/24 07:24 BMI result Body Mass Index 43.4 Const: Other: Gen: in no acute distress HEENT: sclera anicteric, moist mucus membranes Neck: supple Lungs: clear to auscultation bilaterally Heart: regular rate and rhythm, no murmurs Abd: soft, non-tender, non-distended, obese : No L flank tenderness, CHARLENE drain seropurulent fluid Ext: no edema Skin: warm/well-perfused Neuro: alert and oriented x3, no focal findings Psych: appropriate affect Objective Data Active Medications Acetaminophen (Acetaminophen 325 Mg Tablet) 650 mg PO Q6H PRN PRN Reason: Pain, Mild (Pain Scale 1-3), fever or headache Last Admin: 05/29/24 21:25 Dose: 650 mg Documented By: SARA Albuterol Sulfate (Albuterol Sulfate 90 Mcg 8 Gm Inhaler) 2 puff INHALE Q6H PRN PRN Reason: Shortness Of Breath Or Wheezing Last Admin: 05/24/24 13:10 Dose: 2 puff Documented By: YURIDIA Allopurinol (Allopurinol 100 Mg Tablet) 100 mg PO DAILY [facility] Last Admin: 05/31/24 07:39 Dose: 100 mg Documented By: LANCE Atorvastatin Calcium (Atorvastatin Calcium 20 Mg Tablet) 20 mg PO BEDTIME [facility] Last Admin: 05/30/24 20:37 Dose: 20 mg Documented By: SARA Calcium Carbonate (Calcium Carbonate 750 Mg Tab.Chew) 750 mg PO Q4H PRN PRN Reason: Heartburn Escitalopram Oxalate (Escitalopram Oxalate 20 Mg Tablet) 20 mg PO DAILY [facility] Last Admin: 05/31/24 07:39 Dose: 20 mg Documented By: LANCE Ferrous Sulfate (Ferrous Sulfate 324 Mg Tablet.Dr) 324 mg PO BID [facility] Last Admin: 05/31/24 07:39 Dose: 324 mg Documented By: LANCE Fluticasone/Vilanterol (Fluticasone/Vilanterol 200/25 Blst.W.Dev) 1 puff INHALE RDAILY [facility] Last Admin: 05/31/24 08:14 Dose: 1 puff Documented By: ONDINA Glucose (Glucose Gel 15 Gm Gel..Gram.) 15 gm PO Q15M PRN; Protocol PRN Reason: per Hypoglycemia Standing Ord. Dextrose (D10) 250 mls @ 750 mls/hr IV Q15M PRN; Protocol PRN Reason: per Hypoglycemia Standing Ord. Ceftriaxone Sodium 1 gm/ (Sodium Chloride) 50 mls @ 100 mls/hr IV Q24H [facility] Last Infusion: 05/31/24 08:22 Dose: Infused Documented By: LANCE Metronidazole (Flagyl) 500 mg in 100 mls @ 100 mls/hr IV Q8H [facility] Last Infusion: 05/31/24 09:45 Dose: Infused Documented By: LANCE Insulin Human Lispro (Insulin Lispro 100 Unit/Ml 3 Ml Vial) 0 unit SUBCUT QIDACHS [facility]; Protocol Last Admin: 05/31/24 11:31 Dose: Not Given Documented By: LANCE Non-Admin Reason: No Insulin Coverage Lisinopril (Lisinopril 20 Mg Tablet) 20 mg PO DAILY [facility]; Protocol Last Admin: 05/31/24 07:39 Dose: 20 mg Documented By: LANCE Magnesium Hydroxide (Milk Of Magnesia 30 Ml Oral.Susp) 30 ml PO DAILY PRN PRN Reason: Constipation Meclizine HCl (Meclizine Hcl 25 Mg Tablet) 25 mg PO DAILY PRN PRN Reason: Vertigo Melatonin (Melatonin 3 Mg Tablet) 6 mg PO BEDTIME PRN PRN Reason: Insomnia Last Admin: 05/31/24 00:19 Dose: 6 mg Documented By: SARA Montelukast Sodium (Montelukast Sodium 10 Mg Tablet) 10 mg PO BEDTIME [facility] Last Admin: 05/30/24 20:36 Dose: 10 mg Documented By: SARA Morphine Sulfate (Morphine Sulfate 4 Mg/Ml Cartridge) 4 mg IVPUSH Q6H PRN; Protocol PRN Reason: Pain, Severe (Pain Scale 7-10) Last Admin: 05/27/24 19:19 Dose: 4 mg Documented By: SARA Ondansetron HCl (Ondansetron Hcl 4 Mg/2 Ml Vial) 4 mg IVPUSH Q4H PRN PRN Reason: Nausea and Vomiting Sodium Chloride (0.9 % Sodium Chloride Flush 3 Ml Syringe) 3 ml IVFLUSH QSHIFT [facility] Last Admin: 05/31/24 07:40 Dose: 3 ml Documented By: LANCE Labs 05/27/24 05:32 05/29/24 05:54 Labs: Laboratory Results - last 24 hr 05/30/24 05/30/24 05/31/24 15:53 20:13 07:22 POC Glucose 119 H 140 H 101 05/31/24 11:18 POC Glucose 130 H Assessment and Plan (1) Perinephric abscess: Status: Acute (2) Hematoma of kidney: Status: Acute Plan 53yo F with hx staghorn calculus s/p ureteral stenting complicated by subcapsular hematoma, DM2, obesity, HTN, asthma, HLD, presenting with chills and flank pain, found to have complex fluid collection along the lateral aspect of the left kidney with gas Left perinephric abscess/complicated UTI - no recurrent fevers, no worsening abdominal pain - per Gen Surg, doubt fistula to colon [but should have outpt colonoscopy]; Gen Surg and Uro consulted; CT-guided aspiration done 05/25/24 - s/p iv pip-juan antonio x 7 days, fluid culture growing E coli, Klebsiella, Streptococcus viridans, anaerobic culture grew Bacteroides, CHARLENE with persistent 60 mL drainage , CHARLENE in place until output <30 mL/24hr - since E coli and Klebsiella resistant to penicillin, started on IV ceftriaxone and iv falgyl on 05/30 case discussed with ID she recommend total 14 days of treatment will transition to by mouth Ceftin and Flagyl upon discharge -blood cultures negative, WBC normalized. -will repeat follow-up abdominal imaging study -will recommend outpatient follow-up with Urology and Gastroenterology hypoK- repleted DM2- stable blood sugars,on correction-dose lispro, DM diet HTN- continue lisinopril asthma-no acute exacerbation, continue montelukast, Symbicort HLD- continue statin morbid obesity- diet/exercise counseling VTE ppx- SCDs dispo- eventual home In my clinical judgment, the patient requires continued inpatient hospitalization for the following reasons: IV ABX and persistent high CHARLENE output Total time managing care of this patient today: 35 minutes. Quality Stroke Does the patient have a stroke diagnosis?: No VTE Prior VTE?: No VTE Risk Level:: Medical - moderate - high VTE Device Contraindication: N/A - Device Ordered VTE Drug Contraindication: Treatment Not Indicated
--- NOTE | 2024-05-31 14:38 | PM.PNGS ---
Subjective Subjective Date of Service: 06/01/24 Interval history: Has had no fever No GI complaints Tolerating diet well Physical Exam Vital Signs: Vital Signs: Last Vital Signs Temp 96.8 F 05/31/24 07:24 Pulse 69 05/31/24 08:15 Resp 19 05/31/24 08:15 BP 139/75 05/31/24 07:39 Pulse Ox 97 05/31/24 07:24 O2 Del Method Room Air 05/31/24 07:24 BMI result Body Mass Index 43.4 Const: Other: Looks well General: comfortable and no acute distress Resp: Effort & Inspection: normal respiratory effort Cardio: Rate: regular rate GI: Other: CHARLENE drain in place, thin purulent output Palpation (GI): Soft to palpation, not firm, Tenderness to palpation present (GI) (Some tenderness on the drain site) and no guarding Objective Data Active Medications Acetaminophen (Acetaminophen 325 Mg Tablet) 650 mg PO Q6H PRN PRN Reason: Pain, Mild (Pain Scale 1-3), fever or headache Last Admin: 05/29/24 21:25 Dose: 650 mg Documented By: SARA Albuterol Sulfate (Albuterol Sulfate 90 Mcg 8 Gm Inhaler) 2 puff INHALE Q6H PRN PRN Reason: Shortness Of Breath Or Wheezing Last Admin: 05/24/24 13:10 Dose: 2 puff Documented By: YURIDIA Allopurinol (Allopurinol 100 Mg Tablet) 100 mg PO DAILY [facility] Last Admin: 05/31/24 07:39 Dose: 100 mg Documented By: LANCE Atorvastatin Calcium (Atorvastatin Calcium 20 Mg Tablet) 20 mg PO BEDTIME [facility] Last Admin: 05/30/24 20:37 Dose: 20 mg Documented By: SARA Calcium Carbonate (Calcium Carbonate 750 Mg Tab.Chew) 750 mg PO Q4H PRN PRN Reason: Heartburn Escitalopram Oxalate (Escitalopram Oxalate 20 Mg Tablet) 20 mg PO DAILY [facility] Last Admin: 05/31/24 07:39 Dose: 20 mg Documented By: LANCE Ferrous Sulfate (Ferrous Sulfate 324 Mg Tablet.) 324 mg PO BID [facility] Last Admin: 05/31/24 07:39 Dose: 324 mg Documented By: LANCE Fluticasone/Vilanterol (Fluticasone/Vilanterol 200/25 Blst.W.Dev) 1 puff INHALE RDAILY [facility] Last Admin: 05/31/24 08:14 Dose: 1 puff Documented By: ONDINA Glucose (Glucose Gel 15 Gm Gel..Gram.) 15 gm PO Q15M PRN; Protocol PRN Reason: per Hypoglycemia Standing Ord. Dextrose (D10) 250 mls @ 750 mls/hr IV Q15M PRN; Protocol PRN Reason: per Hypoglycemia Standing Ord. Ceftriaxone Sodium 1 gm/ (Sodium Chloride) 50 mls @ 100 mls/hr IV Q24H [facility] Last Infusion: 05/31/24 08:22 Dose: Infused Documented By: LANCE Metronidazole (Flagyl) 500 mg in 100 mls @ 100 mls/hr IV Q8H [facility] Last Infusion: 05/31/24 09:45 Dose: Infused Documented By: LANCE Insulin Human Lispro (Insulin Lispro 100 Unit/Ml 3 Ml Vial) 0 unit SUBCUT QIDACHS [facility]; Protocol Last Admin: 05/31/24 11:31 Dose: Not Given Documented By: LANCE Non-Admin Reason: No Insulin Coverage Lisinopril (Lisinopril 20 Mg Tablet) 20 mg PO DAILY [facility]; Protocol Last Admin: 05/31/24 07:39 Dose: 20 mg Documented By: LANCE Magnesium Hydroxide (Milk Of Magnesia 30 Ml Oral.Susp) 30 ml PO DAILY PRN PRN Reason: Constipation Meclizine HCl (Meclizine Hcl 25 Mg Tablet) 25 mg PO DAILY PRN PRN Reason: Vertigo Melatonin (Melatonin 3 Mg Tablet) 6 mg PO BEDTIME PRN PRN Reason: Insomnia Last Admin: 05/31/24 00:19 Dose: 6 mg Documented By: SARA Montelukast Sodium (Montelukast Sodium 10 Mg Tablet) 10 mg PO BEDTIME [facility] Last Admin: 05/30/24 20:36 Dose: 10 mg Documented By: SARA Morphine Sulfate (Morphine Sulfate 4 Mg/Ml Cartridge) 4 mg IVPUSH Q6H PRN; Protocol PRN Reason: Pain, Severe (Pain Scale 7-10) Last Admin: 05/27/24 19:19 Dose: 4 mg Documented By: SARA Ondansetron HCl (Ondansetron Hcl 4 Mg/2 Ml Vial) 4 mg IVPUSH Q4H PRN PRN Reason: Nausea and Vomiting Sodium Chloride (0.9 % Sodium Chloride Flush 3 Ml Syringe) 3 ml IVFLUSH QSHIFT [facility] Last Admin: 05/31/24 07:40 Dose: 3 ml Documented By: LANCE Labs 05/27/24 05:32 05/29/24 05:54 Labs: Laboratory Results - last 24 hr 05/30/24 05/30/24 05/31/24 15:53 20:13 07:22 POC Glucose 119 H 140 H 101 05/31/24 11:18 POC Glucose 130 H Procedures Date of Service Date of Service: 06/01/24 Progress Note: A&P Assessment and plan (1) Perinephric abscess: Status: Acute Assessment and Plan: Status post IR drain Clinically doing very well Likely to go home with drain in place and follow up with Urology Follow-up CT ordered by the Hospitalist - I will follow looks well Time Spent With Patient Time: Total time managing care of this patient today ____ minutes. Quality Stroke Does the patient have a stroke diagnosis?: No VTE Prior VTE?: No VTE Risk Level:: Medical - moderate - high VTE Device Contraindication: N/A - Device Ordered VTE Drug Contraindication: Treatment Not Indicated
[2024-05-31 15:15] VITALS: BP 129/70; PULSE 75; RESP 18; TEMP 36.3; O2SAT 96
[2024-05-31 16:16] LABS: Glucose, Whole Blood 171 mg/dL (60-115)
[2024-05-31] MEDS: Insulin Lispro 100 UNIT/ML 3 ML VIAL SUBCUT (16:57)
[2024-05-31 19:08] VITALS: BP 137/74; PULSE 74; RESP 16; TEMP 36.4; O2SAT 96
[2024-05-31 20:08] LABS: Glucose, Whole Blood 116 mg/dL (60-115)
[2024-05-31] MEDS: Montelukast Sodium 10 MG TABLET PO (20:35)
[2024-05-31] MEDS: Atorvastatin Calcium 20 MG TABLET PO (20:35)
[2024-06-01 04:00] VITALS: BP 133/82; PULSE 70; RESP 16; TEMP 36; O2SAT 97
[2024-06-01 07:30] VITALS: BP 145/85; PULSE 64; RESP 16; TEMP 36; O2SAT 96
[2024-06-01 07:53] LABS: Glucose, Whole Blood 117 mg/dL (60-115)
[2024-06-01] MEDS: 0.9 % Sodium Chloride Flush 3 ML SYRINGE IVFLUSH ×3 (07:56→20:44)
[2024-06-01] MEDS: Ferrous Sulfate 324 MG TABLET.DR PO ×2 (08:01→20:42)
[2024-06-01] MEDS: Escitalopram Oxalate 20 MG TABLET PO (08:01)
[2024-06-01] MEDS: cefTRIAXone sodium 1 GM in 0.9 % Sodium Chloride 50 ML IV (08:01)
[2024-06-01] MEDS: allopurinoL 100 MG TABLET PO (08:01)
[2024-06-01] MEDS: lisinopriL 20 MG TABLET PO (08:01)
[2024-06-01] MEDS: Fluticasone/Vilanterol 200/25 BLST.W.DEV 1 PUFF INHALE (08:06)
--- NOTE | 2024-06-01 08:06 | PM.PNGS ---
Subjective Subjective Date of Service: 06/02/24 Interval history: Feels okay this morning Tolerating diet No GI complaints Physical Exam Vital Signs: Vital Signs: Last Vital Signs Temp 96.8 F 06/01/24 07:30 Pulse 64 06/01/24 07:30 Resp 16 06/01/24 07:30 BP 145/85 H 06/01/24 07:30 Pulse Ox 96 06/01/24 07:30 O2 Del Method Room Air 06/01/24 07:30 BMI result Body Mass Index 43.4 Const: General: comfortable and no acute distress Resp: Effort & Inspection: normal respiratory effort Cardio: Rate: regular rate GI: Other: CHARLENE drain with scanty output Palpation (GI): Soft to palpation, not firm and no guarding Objective Data Active Medications Acetaminophen (Acetaminophen 325 Mg Tablet) 650 mg PO Q6H PRN PRN Reason: Pain, Mild (Pain Scale 1-3), fever or headache Last Admin: 05/29/24 21:25 Dose: 650 mg Documented By: SARA Albuterol Sulfate (Albuterol Sulfate 90 Mcg 8 Gm Inhaler) 2 puff INHALE Q6H PRN PRN Reason: Shortness Of Breath Or Wheezing Last Admin: 05/24/24 13:10 Dose: 2 puff Documented By: YURIDIA Allopurinol (Allopurinol 100 Mg Tablet) 100 mg PO DAILY [facility] Last Admin: 05/31/24 07:39 Dose: 100 mg Documented By: LANCE Atorvastatin Calcium (Atorvastatin Calcium 20 Mg Tablet) 20 mg PO BEDTIME [facility] Last Admin: 05/31/24 20:35 Dose: 20 mg Documented By: SARA Calcium Carbonate (Calcium Carbonate 750 Mg Tab.Chew) 750 mg PO Q4H PRN PRN Reason: Heartburn Escitalopram Oxalate (Escitalopram Oxalate 20 Mg Tablet) 20 mg PO DAILY [facility] Last Admin: 05/31/24 07:39 Dose: 20 mg Documented By: LANCE Ferrous Sulfate (Ferrous Sulfate 324 Mg Tablet.Dr) 324 mg PO BID [facility] Last Admin: 05/31/24 20:35 Dose: 324 mg Documented By: SARA Fluticasone/Vilanterol (Fluticasone/Vilanterol 200/25 Blst.W.Dev) 1 puff INHALE RDAILY [facility] Last Admin: 05/31/24 08:14 Dose: 1 puff Documented By: ONDINA Glucose (Glucose Gel 15 Gm Gel..Gram.) 15 gm PO Q15M PRN; Protocol PRN Reason: per Hypoglycemia Standing Ord. Dextrose (D10) 250 mls @ 750 mls/hr IV Q15M PRN; Protocol PRN Reason: per Hypoglycemia Standing Ord. Ceftriaxone Sodium 1 gm/ (Sodium Chloride) 50 mls @ 100 mls/hr IV Q24H [facility] Last Infusion: 05/31/24 08:22 Dose: Infused Documented By: LANCE Metronidazole (Flagyl) 500 mg in 100 mls @ 100 mls/hr IV Q8H [facility] Last Infusion: 06/01/24 00:54 Dose: Infused Documented By: CRISTOFER Insulin Human Lispro (Insulin Lispro 100 Unit/Ml 3 Ml Vial) 0 unit SUBCUT QIDACHS [facility]; Protocol Last Admin: 05/31/24 20:13 Dose: Not Given Documented By: SARA Non-Admin Reason: No Insulin Coverage Lisinopril (Lisinopril 20 Mg Tablet) 20 mg PO DAILY [facility]; Protocol Last Admin: 05/31/24 07:39 Dose: 20 mg Documented By: LANCE Magnesium Hydroxide (Milk Of Magnesia 30 Ml Oral.Susp) 30 ml PO DAILY PRN PRN Reason: Constipation Meclizine HCl (Meclizine Hcl 25 Mg Tablet) 25 mg PO DAILY PRN PRN Reason: Vertigo Melatonin (Melatonin 3 Mg Tablet) 6 mg PO BEDTIME PRN PRN Reason: Insomnia Last Admin: 05/31/24 20:35 Dose: 6 mg Documented By: SARA Montelukast Sodium (Montelukast Sodium 10 Mg Tablet) 10 mg PO BEDTIME [facility] Last Admin: 05/31/24 20:35 Dose: 10 mg Documented By: SARA Morphine Sulfate (Morphine Sulfate 4 Mg/Ml Cartridge) 4 mg IVPUSH Q6H PRN; Protocol PRN Reason: Pain, Severe (Pain Scale 7-10) Last Admin: 05/27/24 19:19 Dose: 4 mg Documented By: SARA Ondansetron HCl (Ondansetron Hcl 4 Mg/2 Ml Vial) 4 mg IVPUSH Q4H PRN PRN Reason: Nausea and Vomiting Sodium Chloride (0.9 % Sodium Chloride Flush 3 Ml Syringe) [facility] Last Admin: 05/31/24 20:41 Dose: 3 ml Documented By: SARA Labs 05/27/24 05:32 05/29/24 05:54 Labs: Laboratory Results - last 24 hr 05/31/24 05/31/24 05/31/24 11:18 16:13 19:59 POC Glucose 130 H 171 H 116 H 06/01/24 07:36 POC Glucose 117 H Procedures Date of Service Date of Service: 06/02/24 Progress Note: A&P Assessment and plan (1) Perinephric abscess: Status: Acute Assessment and Plan: Status post IR drain Output from CHARLENE drain much less She looks well clinically Follow-up CT scan done yesterday - perinephric abscess much smaller, Gerota's fascia appears intact, no inflammatory process in the left colon noted -Official report not back yet Would recommend keep drain in place on discharge and follow up with Time Spent With Patient Time: Total time managing care of this patient today ____ minutes. Quality Stroke Does the patient have a stroke diagnosis?: No VTE Prior VTE?: No VTE Risk Level:: Medical - moderate - high VTE Device Contraindication: N/A - Device Ordered VTE Drug Contraindication: Treatment Not Indicated
[2024-06-01 08:08] VITALS: PULSE 64; RESP 16; O2SAT 96
[2024-06-01] MEDS: metroNIDAZOLE/NS 500 MG/100 ML PIGGYBACK 100 MG IV ×2 (08:49→15:56)
[2024-06-01 11:41] LABS: Glucose, Whole Blood 113 mg/dL (60-115)
--- NOTE | 2024-06-01 11:46 | P.PNIM_ITS ---
Subjective Subjective Date of Service: 06/01/24 Interval History: Being followed for left perinephric abscess, no significant change in CHARLENE output, denies abdominal pain, no fevers, no chills tolerating diet. Review of Systems All other system reviewed and are negative. Physical Exam 2 Vital Signs: Vital Signs: Last Vital Signs Temp 96.8 F 06/01/24 07:30 Pulse 64 06/01/24 08:08 Resp 16 06/01/24 08:08 BP 145/85 H 06/01/24 07:30 Pulse Ox 96 06/01/24 07:30 O2 Del Method Room Air 06/01/24 07:30 BMI result Body Mass Index 43.4 Const: Other: Gen: in no acute distress HEENT: sclera anicteric, moist mucus membranes Neck: supple Lungs: clear to auscultation bilaterally Heart: regular rate and rhythm, no murmurs Abd: soft, non-tender, non-distended, obese : No L flank tenderness, CHARLENE drain seropurulent fluid 30 mL Ext: no edema Skin: warm/well-perfused Neuro: alert and oriented x3, no focal findings Psych: appropriate affect Objective Data Active Medications Acetaminophen (Acetaminophen 325 Mg Tablet) 650 mg PO Q6H PRN PRN Reason: Pain, Mild (Pain Scale 1-3), fever or headache Last Admin: 05/29/24 21:25 Dose: 650 mg Documented By: SARA Albuterol Sulfate (Albuterol Sulfate 90 Mcg 8 Gm Inhaler) 2 puff INHALE Q6H PRN PRN Reason: Shortness Of Breath Or Wheezing Last Admin: 05/24/24 13:10 Dose: 2 puff Documented By: YURIDIA Allopurinol (Allopurinol 100 Mg Tablet) 100 mg PO DAILY [facility] Last Admin: 06/01/24 08:01 Dose: 100 mg Documented By: FANTASMA Atorvastatin Calcium (Atorvastatin Calcium 20 Mg Tablet) 20 mg PO BEDTIME [facility] Last Admin: 05/31/24 20:35 Dose: 20 mg Documented By: SARA Calcium Carbonate (Calcium Carbonate 750 Mg Tab.Chew) 750 mg PO Q4H PRN PRN Reason: Heartburn Escitalopram Oxalate (Escitalopram Oxalate 20 Mg Tablet) 20 mg PO DAILY [facility] Last Admin: 06/01/24 08:01 Dose: 20 mg Documented By: FANTASMA Ferrous Sulfate (Ferrous Sulfate 324 Mg Tablet.Dr) 324 mg PO BID [facility] Last Admin: 06/01/24 08:01 Dose: 324 mg Documented By: FANTASMA Fluticasone/Vilanterol (Fluticasone/Vilanterol 200/25 Blst.W.Dev) 1 puff INHALE RDAILY [facility] Last Admin: 06/01/24 08:06 Dose: 1 puff Documented By: SAMMIE Glucose (Glucose Gel 15 Gm Gel..Gram.) 15 gm PO Q15M PRN; Protocol PRN Reason: per Hypoglycemia Standing Ord. Dextrose (D10) 250 mls @ 750 mls/hr IV Q15M PRN; Protocol PRN Reason: per Hypoglycemia Standing Ord. Ceftriaxone Sodium 1 gm/ (Sodium Chloride) 50 mls @ 100 mls/hr IV Q24H [facility] Last Infusion: 06/01/24 08:49 Dose: Infused Documented By: FANTASMA Metronidazole (Flagyl) 500 mg in 100 mls @ 100 mls/hr IV Q8H [facility] Last Infusion: 06/01/24 10:22 Dose: Infused Documented By: FANTASMA Insulin Human Lispro (Insulin Lispro 100 Unit/Ml 3 Ml Vial) 0 unit SUBCUT QIDACHS [facility]; Protocol Last Admin: 06/01/24 08:10 Dose: Not Given Documented By: FANTASMA Non-Admin Reason: No Insulin Coverage Lisinopril (Lisinopril 20 Mg Tablet) 20 mg PO DAILY [facility]; Protocol Last Admin: 06/01/24 08:01 Dose: 20 mg Documented By: FANTASMA Magnesium Hydroxide (Milk Of Magnesia 30 Ml Oral.Susp) 30 ml PO DAILY PRN PRN Reason: Constipation Meclizine HCl (Meclizine Hcl 25 Mg Tablet) 25 mg PO DAILY PRN PRN Reason: Vertigo Melatonin (Melatonin 3 Mg Tablet) 6 mg PO BEDTIME PRN PRN Reason: Insomnia Last Admin: 05/31/24 20:35 Dose: 6 mg Documented By: SARA Montelukast Sodium (Montelukast Sodium 10 Mg Tablet) 10 mg PO BEDTIME [facility] Last Admin: 05/31/24 20:35 Dose: 10 mg Documented By: SARA Morphine Sulfate (Morphine Sulfate 4 Mg/Ml Cartridge) 4 mg IVPUSH Q6H PRN; Protocol PRN Reason: Pain, Severe (Pain Scale 7-10) Last Admin: 05/27/24 19:19 Dose: 4 mg Documented By: SARA Ondansetron HCl (Ondansetron Hcl 4 Mg/2 Ml Vial) 4 mg IVPUSH Q4H PRN PRN Reason: Nausea and Vomiting Sodium Chloride (0.9 % Sodium Chloride Flush 3 Ml Syringe) [facility] Last Admin: 06/01/24 07:56 Dose: 3 ml Documented By: FANTASMA Labs 05/27/24 05:32 05/29/24 05:54 Labs: Laboratory Results - last 24 hr 05/31/24 05/31/24 06/01/24 16:13 19:59 07:36 POC Glucose 171 H 116 H 117 H 06/01/24 11:37 POC Glucose 113 Assessment and Plan (1) Perinephric abscess: Status: Acute (2) Hematoma of kidney: Status: Acute Plan 53yo F with hx staghorn calculus s/p ureteral stenting complicated by subcapsular hematoma, DM2, obesity, HTN, asthma, HLD, presenting with chills and flank pain, found to have complex fluid collection along the lateral aspect of the left kidney with gas Left perinephric abscess/complicated UTI - no recurrent fevers, no worsening abdominal pain - per Gen Surg, doubt fistula to colon [but should have outpt colonoscopy]; Gen Surg and Uro consulted; CT-guided aspiration done 05/25/24 - s/p iv pip-juan antonio x 7 days, fluid culture growing E coli, Klebsiella, Streptococcus viridans, anaerobic culture grew Bacteroides, CHARLENE with persistent 60 mL drainage , CHARLENE in place until output <30 mL/24hr - since E coli and Klebsiella resistant to penicillin, started on IV ceftriaxone and iv falgyl on 05/30 case discussed with ID she recommend total 14 days of treatment will transition to by mouth Ceftin and Flagyl upon discharge -blood cultures negative, WBC normalized. -abdominal imaging study done 05/31 report pending -recommend outpatient follow-up with Urology and Gastroenterology hypoK- repleted DM2- stable blood sugars,on correction-dose lispro, DM diet HTN- continue lisinopril asthma-no acute exacerbation, continue montelukast, Symbicort HLD- continue statin morbid obesity- diet/exercise counseling VTE ppx- SCDs dispo- eventual home In my clinical judgment, the patient requires continued inpatient hospitalization for the following reasons: IV ABX and persistent high CHARLENE output Total time managing care of this patient today: 35 minutes. Quality Stroke Does the patient have a stroke diagnosis?: No VTE Prior VTE?: No VTE Risk Level:: Medical - moderate - high VTE Device Contraindication: N/A - Device Ordered VTE Drug Contraindication: Treatment Not Indicated
--- NOTE | 2024-06-01 12:16 | MHC.CM.PN ---
EMR REVIEWED AND PER MD ROUNDS, ABDOMINAL CT SCAN RESULTS PENDING. CM WILL CONTINUE TO FOLLOW FOR ANY CHANGE TO DC PLAN
[2024-06-01 14:59] VITALS: BP 134/71; PULSE 67; RESP 16; TEMP 36.2; O2SAT 96
[2024-06-01 16:17] LABS: Glucose, Whole Blood 127 mg/dL (60-115)
[2024-06-01 18:54] VITALS: BP 143/74; PULSE 66; RESP 16; TEMP 36.4; O2SAT 97
[2024-06-01 19:59] LABS: Glucose, Whole Blood 158 mg/dL (60-115)
[2024-06-01] MEDS: Insulin Lispro 100 UNIT/ML 3 ML VIAL SUBCUT (20:42)
[2024-06-01] MEDS: Atorvastatin Calcium 20 MG TABLET PO (20:42)
[2024-06-01] MEDS: Montelukast Sodium 10 MG TABLET PO (20:42)
[2024-06-02] MEDS: metroNIDAZOLE/NS 500 MG/100 ML PIGGYBACK 100 MG IV (00:15)
[2024-06-02 03:58] VITALS: BP 150/74; PULSE 62; RESP 16; TEMP 36.1; O2SAT 96
[2024-06-02 07:21] LABS: Glucose, Whole Blood 117 mg/dL (60-115)
[2024-06-02 07:56] VITALS: PULSE 62; RESP 16; O2SAT 96
[2024-06-02] MEDS: Fluticasone/Vilanterol 200/25 BLST.W.DEV 1 PUFF INHALE (07:56)
[2024-06-02 08:47] VITALS: BP 123/65; PULSE 69; RESP 17; TEMP 36.1; O2SAT 97
[2024-06-02] MEDS: lisinopriL 20 MG TABLET PO (08:48)
[2024-06-02] MEDS: Escitalopram Oxalate 20 MG TABLET PO (08:49)
[2024-06-02] MEDS: metroNIDAZOLE 500 MG TABLET PO ×2 (08:49→16:38)
[2024-06-02] MEDS: Ferrous Sulfate 324 MG TABLET.DR PO ×2 (08:49→21:19)
[2024-06-02] MEDS: allopurinoL 100 MG TABLET PO (08:49)
[2024-06-02] MEDS: cefTRIAXone sodium 1 GM in 0.9 % Sodium Chloride 50 ML IV (08:49)
[2024-06-02] MEDS: 0.9 % Sodium Chloride Flush 3 ML SYRINGE IVFLUSH ×2 (08:50→16:38)
[2024-06-02 11:07] LABS: Glucose, Whole Blood 132 mg/dL (60-115)
--- NOTE | 2024-06-02 14:14 | HO.PM.IMPN ---
Subjective Subjective Date of Service: 06/02/24 Interval History: Being followed for left perinephric abscess, feeling better denies abdominal pain, complaining of multiple loose stool, no fevers, no chills, no abdominal cramping tolerating diet no other acute issues overnight. Review of Systems All other system are reviewed and are negative. Physical Exam Vital Signs: Vital Signs: Last Vital Signs Temp 97 F 06/02/24 08:47 Pulse 69 06/02/24 08:47 Resp 17 06/02/24 08:47 BP 123/65 06/02/24 08:47 Pulse Ox 97 06/02/24 08:47 O2 Del Method Room Air 06/02/24 08:47 BMI result Body Mass Index 43.4 Const: Other: Gen: in no acute distress HEENT: sclera anicteric, moist mucus membranes Neck: supple Lungs: clear to auscultation bilaterally Heart: regular rate and rhythm, no murmurs Abd: soft, non-tender, non-distended, obese : No L flank tenderness, CHARLENE drain 30 mL Ext: no edema Skin: warm/well-perfused Neuro: alert and oriented x3, no focal findings Psych: appropriate affect Objective Data Active Medications Acetaminophen (Acetaminophen 325 Mg Tablet) 650 mg PO Q6H PRN PRN Reason: Pain, Mild (Pain Scale 1-3), fever or headache Last Admin: 05/29/24 21:25 Dose: 650 mg Documented By: SARA Albuterol Sulfate (Albuterol Sulfate 90 Mcg 8 Gm Inhaler) 2 puff INHALE Q6H PRN PRN Reason: Shortness Of Breath Or Wheezing Last Admin: 05/24/24 13:10 Dose: 2 puff Documented By: YURIDIA Allopurinol (Allopurinol 100 Mg Tablet) 100 mg PO DAILY [facility] Last Admin: 06/02/24 08:49 Dose: 100 mg Documented By: FANTASMA Atorvastatin Calcium (Atorvastatin Calcium 20 Mg Tablet) 20 mg PO BEDTIME [facility] Last Admin: 06/01/24 20:42 Dose: 20 mg Documented By: ROWAN Calcium Carbonate (Calcium Carbonate 750 Mg Tab.Chew) 750 mg PO Q4H PRN PRN Reason: Heartburn Escitalopram Oxalate (Escitalopram Oxalate 20 Mg Tablet) 20 mg PO DAILY [facility] Last Admin: 06/02/24 08:49 Dose: 20 mg Documented By: FANTASMA Ferrous Sulfate (Ferrous Sulfate 324 Mg Tablet.Dr) 324 mg PO BID [facility] Last Admin: 06/02/24 08:49 Dose: 324 mg Documented By: FANTASMA Fluticasone/Vilanterol (Fluticasone/Vilanterol 200/25 Blst.W.Dev) 1 puff INHALE RDAILY [facility] Last Admin: 06/02/24 07:56 Dose: 1 puff Documented By: SAMMIE Glucose (Glucose Gel 15 Gm Gel..Gram.) 15 gm PO Q15M PRN; Protocol PRN Reason: per Hypoglycemia Standing Ord. Dextrose (D10) 250 mls @ 750 mls/hr IV Q15M PRN; Protocol PRN Reason: per Hypoglycemia Standing Ord. Ceftriaxone Sodium 1 gm/ (Sodium Chloride) 50 mls @ 100 mls/hr IV Q24H [facility] Last Infusion: 06/02/24 09:47 Dose: Infused Documented By: FANTASMA Insulin Human Lispro (Insulin Lispro 100 Unit/Ml 3 Ml Vial) 0 unit SUBCUT QIDACHS [facility]; Protocol Last Admin: 06/02/24 11:19 Dose: Not Given Documented By: FANTASMA Non-Admin Reason: No Insulin Coverage Lisinopril (Lisinopril 20 Mg Tablet) 20 mg PO DAILY [facility]; Protocol Last Admin: 06/02/24 08:48 Dose: 20 mg Documented By: FANTASMA Magnesium Hydroxide (Milk Of Magnesia 30 Ml Oral.Susp) 30 ml PO DAILY PRN PRN Reason: Constipation Meclizine HCl (Meclizine Hcl 25 Mg Tablet) 25 mg PO DAILY PRN PRN Reason: Vertigo Melatonin (Melatonin 3 Mg Tablet) 6 mg PO BEDTIME PRN PRN Reason: Insomnia Last Admin: 05/31/24 20:35 Dose: 6 mg Documented By: SARA Metronidazole (Metronidazole 500 Mg Tablet) 500 mg PO Q8H [facility] Last Admin: 06/02/24 08:49 Dose: 500 mg Documented By: FANTASMA Montelukast Sodium (Montelukast Sodium 10 Mg Tablet) 10 mg PO BEDTIME [facility] Last Admin: 06/01/24 20:42 Dose: 10 mg Documented By: ROWAN Ondansetron HCl (Ondansetron Hcl 4 Mg/2 Ml Vial) 4 mg IVPUSH Q4H PRN PRN Reason: Nausea and Vomiting Sodium Chloride (0.9 % Sodium Chloride Flush 3 Ml Syringe) 3 ml IVFLUSH QSHIFT [facility] Last Admin: 06/02/24 08:50 Dose: 3 ml Documented By: FANTASMA Labs 05/27/24 05:32 05/29/24 05:54 Labs: Laboratory Results - last 24 hr 06/01/24 06/01/24 06/02/24 16:11 19:53 07:13 POC Glucose 127 H 158 H 117 H 06/02/24 11:02 POC Glucose 132 H Assessment and Plan (1) Perinephric abscess: Status: Acute (2) Hematoma of kidney: Status: Acute Plan 53yo F with hx staghorn calculus s/p ureteral stenting complicated by subcapsular hematoma, DM2, obesity, HTN, asthma, HLD, presenting with chills and flank pain, found to have complex fluid collection along the lateral aspect of the left kidney with gas Left perinephric abscess/complicated UTI - no recurrent fevers, abdominal pain resolved - CT guided aspiration done per Gen Surg, doubt fistula to colon [but should have outpt colonoscopy] - s/p iv pip-juan antonio x 7 days, fluid culture growing E coli, Klebsiella, Streptococcus viridans, anaerobic culture grew Bacteroides, therefore Zosyn discontinued patient on IV ceftriaxone and IV Flagyl started on 05/30 Will DC IV Flagyl transitioned to by mouth Flagyl 500 t.i.d. /DC IV ceftriaxone transitioned to Ceftin 500 b.i.d. CHARLENE drainage down to 30 mL -blood cultures negative, WBC normalized. 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 -will discuss discharge planning with General surgery /outpatient follow-up with Urology and Gastroenterology -id recommend total 14 days of Flagyl and Ceftin , on antibiotics since May 23 Diarrhea likely antibiotic induced C diff pending, if negative will place on Imodium hypoK- repleted DM2- stable blood sugars,on correction-dose lispro, DM diet HTN- continue lisinopril asthma-no acute exacerbation, continue montelukast, Symbicort HLD- continue statin morbid obesity- diet/exercise counseling VTE ppx- SCDs dispo- eventual home In my clinical judgment, the patient requires continued inpatient hospitalization for the following reasons: IV ABX and persistent high CHARLENE output Total time managing care of this patient today: 35 minutes. Quality Stroke Does the patient have a stroke diagnosis?: No VTE Prior VTE?: No VTE Risk Level:: Medical - moderate - high VTE Device Contraindication: N/A - Device Ordered VTE Drug Contraindication: Treatment Not Indicated
[2024-06-02 14:52] LABS: CDiff Gene PCR NEGATIVE (Negative)
[2024-06-02 15:20] VITALS: BP 133/71; PULSE 74; RESP 16; TEMP 36.2; O2SAT 95
--- NOTE | 2024-06-02 15:58 | P.PNGS_ITS ---
Subjective Subjective Date of Service: 06/02/24 Interval history: Feels well Denies abdominal pain Denies GI complaints except for some loose stools, likely from IV antibiotics CHARLENE drain output seems to be less Physical Exam 2 Vital Signs: Vital Signs: Last Vital Signs Temp 97.2 F 06/02/24 15:20 Pulse 74 06/02/24 15:20 Resp 16 06/02/24 15:20 BP 133/71 06/02/24 15:20 Pulse Ox 95 06/02/24 15:20 O2 Del Method Room Air 06/02/24 15:20 BMI result Body Mass Index 43.4 Const: Other: Looks well General: comfortable and no acute distress Resp: Effort & Inspection: normal respiratory effort Cardio: Palpation: normal PMI GI: Palpation (GI): Soft to palpation, not firm, nontender and no guarding Objective Data Active Medications Acetaminophen (Acetaminophen 325 Mg Tablet) 650 mg PO Q6H PRN PRN Reason: Pain, Mild (Pain Scale 1-3), fever or headache Last Admin: 05/29/24 21:25 Dose: 650 mg Documented By: SARA Albuterol Sulfate (Albuterol Sulfate 90 Mcg 8 Gm Inhaler) 2 puff INHALE Q6H PRN PRN Reason: Shortness Of Breath Or Wheezing Last Admin: 05/24/24 13:10 Dose: 2 puff Documented By: YURIDIA Allopurinol (Allopurinol 100 Mg Tablet) 100 mg PO DAILY [facility] Last Admin: 06/02/24 08:49 Dose: 100 mg Documented By: FANTASMA Atorvastatin Calcium (Atorvastatin Calcium 20 Mg Tablet) 20 mg PO BEDTIME [facility] Last Admin: 06/01/24 20:42 Dose: 20 mg Documented By: ROWAN Calcium Carbonate (Calcium Carbonate 750 Mg Tab.Chew) 750 mg PO Q4H PRN PRN Reason: Heartburn Escitalopram Oxalate (Escitalopram Oxalate 20 Mg Tablet) 20 mg PO DAILY [facility] Last Admin: 06/02/24 08:49 Dose: 20 mg Documented By: FATNASMA Ferrous Sulfate (Ferrous Sulfate 324 Mg Tablet.Dr) 324 mg PO BID [facility] Last Admin: 06/02/24 08:49 Dose: 324 mg Documented By: FANTASMA Fluticasone/Vilanterol (Fluticasone/Vilanterol 200/25 Blst.W.Dev) 1 puff INHALE RDAILY [facility] Last Admin: 06/02/24 07:56 Dose: 1 puff Documented By: SAMMIE Glucose (Glucose Gel 15 Gm Gel..Gram.) 15 gm PO Q15M PRN; Protocol PRN Reason: per Hypoglycemia Standing Ord. Dextrose (D10) 250 mls @ 750 mls/hr IV Q15M PRN; Protocol PRN Reason: per Hypoglycemia Standing Ord. Ceftriaxone Sodium 1 gm/ (Sodium Chloride) 50 mls @ 100 mls/hr IV Q24H [facility] Last Infusion: 06/02/24 09:47 Dose: Infused Documented By: FANTASMA Insulin Human Lispro (Insulin Lispro 100 Unit/Ml 3 Ml Vial) 0 unit SUBCUT QIDACHS [facility]; Protocol Last Admin: 06/02/24 11:19 Dose: Not Given Documented By: FANTASMA Non-Admin Reason: No Insulin Coverage Lisinopril (Lisinopril 20 Mg Tablet) 20 mg PO DAILY [facility]; Protocol Last Admin: 06/02/24 08:48 Dose: 20 mg Documented By: FANTASMA Magnesium Hydroxide (Milk Of Magnesia 30 Ml Oral.Susp) 30 ml PO DAILY PRN PRN Reason: Constipation Meclizine HCl (Meclizine Hcl 25 Mg Tablet) 25 mg PO DAILY PRN PRN Reason: Vertigo Melatonin (Melatonin 3 Mg Tablet) 6 mg PO BEDTIME PRN PRN Reason: Insomnia Last Admin: 05/31/24 20:35 Dose: 6 mg Documented By: SARA Metronidazole (Metronidazole 500 Mg Tablet) 500 mg PO Q8H [facility] Last Admin: 06/02/24 08:49 Dose: 500 mg Documented By: FANTASMA Montelukast Sodium (Montelukast Sodium 10 Mg Tablet) 10 mg PO BEDTIME [facility] Last Admin: 06/01/24 20:42 Dose: 10 mg Documented By: ROWAN Ondansetron HCl (Ondansetron Hcl 4 Mg/2 Ml Vial) 4 mg IVPUSH Q4H PRN PRN Reason: Nausea and Vomiting Sodium Chloride (0.9 % Sodium Chloride Flush 3 Ml Syringe) 3 ml IVFLUSH QSHIFT [facility] Last Admin: 06/02/24 08:50 Dose: 3 ml Documented By: FANTASMA Labs 05/27/24 05:32 05/29/24 05:54 Labs: Laboratory Results - last 24 hr 06/01/24 06/01/24 06/02/24 16:11 19:53 07:13 POC Glucose 127 H 158 H 117 H C. difficile Tox B Gene 06/02/24 06/02/24 11:02 Unknown POC Glucose 132 H C. difficile Tox B Gene NEGATIVE Procedures Date of Service Date of Service: 06/02/24 Progress Note: A&P Assessment and plan (1) Perinephric abscess: Status: Acute Assessment and Plan: Abdominal exam very benign Patient clinically looks well Official CT report reviewed - can not rule out fistula with the colon Clinical picture however consistent with perinephric abscess as the primary source and not a diverticular disease Okay to discharge with the drain in place on abx I can see her in the office and I plan to repeat CT scan as an outpatient She understands the plan Time Spent With Patient Time: Total time managing care of this patient today ____ minutes. Quality Stroke Does the patient have a stroke diagnosis?: No VTE Prior VTE?: No VTE Risk Level:: Medical - moderate - high VTE Device Contraindication: N/A - Device Ordered VTE Drug Contraindication: Treatment Not Indicated
[2024-06-02 16:29] LABS: Glucose, Whole Blood 110 mg/dL (60-115)
[2024-06-02 19:23] VITALS: BP 136/68; PULSE 75; RESP 18; TEMP 36.3; O2SAT 96
[2024-06-02 20:29] LABS: Glucose, Whole Blood 135 mg/dL (60-115)
[2024-06-02] MEDS: Atorvastatin Calcium 20 MG TABLET PO (21:19)
[2024-06-02] MEDS: Montelukast Sodium 10 MG TABLET PO (21:19)
[2024-06-03] MEDS: metroNIDAZOLE 500 MG TABLET PO ×2 (00:04→08:06)
[2024-06-03 04:00] VITALS: BP 148/76; PULSE 70; RESP 16; TEMP 36.4; O2SAT 97
[2024-06-03 07:10] VITALS: BP 142/84; PULSE 67; RESP 16; TEMP 36.1; O2SAT 97
[2024-06-03 07:18] LABS: Glucose, Whole Blood 118 mg/dL (60-115)
--- NOTE | 2024-06-03 08:02 | PM.PNGS ---
Subjective Subjective Date of Service: 06/03/24 Interval history: Denies complaints No GI issues Feels well overall Physical Exam Vital Signs: Vital Signs: Last Vital Signs Temp 96.9 F 06/03/24 07:10 Pulse 67 06/03/24 07:10 Resp 16 06/03/24 07:10 BP 142/84 H 06/03/24 07:10 Pulse Ox 97 06/03/24 07:10 O2 Del Method Room Air 06/03/24 07:10 BMI result Body Mass Index 43.4 Const: General: comfortable and no acute distress Resp: Effort & Inspection: normal respiratory effort Cardio: Rate: regular rate GI: Other: CHARLENE drain in place, output thin, much less Palpation (GI): Soft to palpation and not firm Objective Data Active Medications Acetaminophen (Acetaminophen 325 Mg Tablet) 650 mg PO Q6H PRN PRN Reason: Pain, Mild (Pain Scale 1-3), fever or headache Last Admin: 05/29/24 21:25 Dose: 650 mg Documented By: SARA Albuterol Sulfate (Albuterol Sulfate 90 Mcg 8 Gm Inhaler) 2 puff INHALE Q6H PRN PRN Reason: Shortness Of Breath Or Wheezing Last Admin: 05/24/24 13:10 Dose: 2 puff Documented By: YURIDIA Allopurinol (Allopurinol 100 Mg Tablet) 100 mg PO DAILY [facility] Last Admin: 06/02/24 08:49 Dose: 100 mg Documented By: FANTASMA Atorvastatin Calcium (Atorvastatin Calcium 20 Mg Tablet) 20 mg PO BEDTIME [facility] Last Admin: 06/02/24 21:19 Dose: 20 mg Documented By: MICHELLE Calcium Carbonate (Calcium Carbonate 750 Mg Tab.Chew) 750 mg PO Q4H PRN PRN Reason: Heartburn Cefuroxime Axetil (Cefuroxime Axetil 500 Mg Tablet) 500 mg PO Q12H [facility] Escitalopram Oxalate (Escitalopram Oxalate 20 Mg Tablet) 20 mg PO DAILY [facility] Last Admin: 06/02/24 08:49 Dose: 20 mg Documented By: FANTASMA Ferrous Sulfate (Ferrous Sulfate 324 Mg Tablet.Dr) 324 mg PO BID [facility] Last Admin: 06/02/24 21:19 Dose: 324 mg Documented By: MICHELLE Fluticasone/Vilanterol (Fluticasone/Vilanterol 200/25 Sissy) 1 puff INHALE RDAILY [facility] Last Admin: 06/02/24 07:56 Dose: 1 puff Documented By: SAMMIE Glucose (Glucose Gel 15 Gm Gel..Gram.) 15 gm PO Q15M PRN; Protocol PRN Reason: per Hypoglycemia Standing Ord. Dextrose (D10) 250 mls @ 750 mls/hr IV Q15M PRN; Protocol PRN Reason: per Hypoglycemia Standing Ord. Insulin Human Lispro (Insulin Lispro 100 Unit/Ml 3 Ml Vial) 0 unit SUBCUT QIDACHS [facility]; Protocol Last Admin: 06/03/24 07:19 Dose: Not Given Documented By: COTEMA Non-Admin Reason: No Insulin Coverage Lisinopril (Lisinopril 20 Mg Tablet) 20 mg PO DAILY [facility]; Protocol Last Admin: 06/02/24 08:48 Dose: 20 mg Documented By: FANTASMA Loperamide HCl (Loperamide Hcl 2 Mg Capsule) 4 mg PO Q6H PRN PRN Reason: diarrhea Magnesium Hydroxide (Milk Of Magnesia 30 Ml Oral.Susp) 30 ml PO DAILY PRN PRN Reason: Constipation Meclizine HCl (Meclizine Hcl 25 Mg Tablet) 25 mg PO DAILY PRN PRN Reason: Vertigo Melatonin (Melatonin 3 Mg Tablet) 6 mg PO BEDTIME PRN PRN Reason: Insomnia Last Admin: 05/31/24 20:35 Dose: 6 mg Documented By: SARA Metronidazole (Metronidazole 500 Mg Tablet) 500 mg PO Q8H [facility] Last Admin: 06/03/24 00:04 Dose: 500 mg Documented By: ROWAN Montelukast Sodium (Montelukast Sodium 10 Mg Tablet) 10 mg PO BEDTIME [facility] Last Admin: 06/02/24 21:19 Dose: 10 mg Documented By: MICHELLE Ondansetron HCl (Ondansetron Hcl 4 Mg/2 Ml Vial) 4 mg IVPUSH Q4H PRN PRN Reason: Nausea and Vomiting Sodium Chloride (0.9 % Sodium Chloride Flush 3 Ml Syringe) 3 ml IVFLUSH QSHIFT [facility] Last Admin: 06/03/24 00:05 Dose: Not Given Documented By: ROWAN Non-Admin Reason: Previously Administered Labs 05/27/24 05:32 05/29/24 05:54 Labs: Laboratory Results - last 24 hr 06/02/24 06/02/24 06/02/24 11:02 16:23 20:24 POC Glucose 132 H 110 135 H C. difficile Tox B Gene 06/02/24 06/03/24 Unknown 07:13 POC Glucose 118 H C. difficile Tox B Gene NEGATIVE Procedures Date of Service Date of Service: 06/03/24 Progress Note: A&P Assessment and plan (1) Perinephric abscess: Status: Acute Assessment and Plan: Keep drain in place Antibiotics on discharge as per ID We will see in the office follow-up Plan to repeat CT scan down the line in view of skin of fistula to the colon Primary source of abscess likely to be the kidney instead of the colon Has been doing well overall for the past few days She will need a colonoscopy as well as part of workup Time Spent With Patient Time: Total time managing care of this patient today ____ minutes. Quality Stroke Does the patient have a stroke diagnosis?: No VTE Prior VTE?: No VTE Risk Level:: Medical - moderate - high VTE Device Contraindication: N/A - Device Ordered VTE Drug Contraindication: Treatment Not Indicated
[2024-06-03] MEDS: Escitalopram Oxalate 20 MG TABLET PO (08:06)
[2024-06-03] MEDS: Ferrous Sulfate 324 MG TABLET.DR PO (08:06)
[2024-06-03] MEDS: 0.9 % Sodium Chloride Flush 3 ML SYRINGE IVFLUSH (08:06)
[2024-06-03] MEDS: cefuroxime axetiL 500 MG TABLET PO (08:06)
[2024-06-03] MEDS: allopurinoL 100 MG TABLET PO (08:07)
[2024-06-03] MEDS: lisinopriL 20 MG TABLET PO (08:07)
[2024-06-03 08:26] VITALS: PULSE 67; RESP 16; O2SAT 97
[2024-06-03] MEDS: Fluticasone/Vilanterol 200/25 BLST.W.DEV 1 PUFF INHALE (08:26)
--- NOTE | 2024-06-03 10:37 | P.F2F_ITS ---
Service Date Service Date: 06/03/24 Encounter Date of encounter: 06/03/24 Reasons for Services Signs and symptoms assessed: Left perinephric abscess/abdominal pain resolved/GP drain in place/diarrhea Reason for senior living: diabetic teaching, GI/ assessment and other Homebound: Leaving the home is medically contraindicated at this time without the asist of a device and/or another person due th the listed conditions above and below. Reason homebound: weakness related to hospital stay Certification: Based on the above findings, I certify that this patient is confined to the home and needs intermittent senior living care, physical therapy and/or speech t herapy, or continues to need occupational therapy. The patient is under my care, and I have initiated the establishment of the plan of care. The patient will be followed by a physician who will periodically review the plan of care. Time Spent With Patient Time: Total time managing care of this patient today ____ minutes.
--- NOTE | 2024-06-03 10:39 | P.DS_ITS ---
DS: Providers Provider Date of Service: 06/03/24 Date of admission: 05/23/24 23:19 Primary care physician: Eva Galarza MD Consults: 05/23/24 23:23 Consult to General Surgery Routine Consulting Provider: [facility] General Surgeons Reason for consultation: complex collection along kidney Consult to Urology Routine Consulting Provider: [facility] Urology Services Reason for consultation: complex collection along kidney 05/26/24 09:07 Consult to Infectious Diseases Routine Consulting Provider: [facility] Infect[facility] Disease [facility] Reason for consultation: perinephric abscess DS: Diagnosis Discharge Diagnosis (1) Perinephric abscess: Status: Acute DS: Summary Hospital Course Hospital Course: History of present illness: Date of Service: 05/23/24 Chief Complaint: Abdominal Pain This is a 53-year-old female with pertinent history of nephrolithiasis status post stent placement in February by Dr. Ochoa, left subscapsular hematoma, [id number] type 2 diabetes mellitus, obesity, hypertension, asthma not on home oxygen, mixed hyperlipidemia who presents to the emergency department for evaluation of abdominal pain. Patient states she has had lingering left-sided flank pain since her previous hospitalization. Patient returned to work after consulting with her urologist. Patient states on the day of presentation the left-sided flank pain got worse and was associated with chills and sweating. No dysuria or urinary hesitancy but she has had increased urinary frequency since the stent placement. No fever, chest discomfort, palpitations, shortness of breath. Had 1 episode of diarrhea. In the emergency department, imaging with collection along left kidney. Urology and General surgery were consulted who will evaluate the patient in a.m. Hospital course: 53yo F with hx staghorn calculus s/p ureteral stenting complicated by subcapsular hematoma, DM2, obesity, HTN, asthma, HLD, presented with chills and flank pain, found to have complex fluid collection along the lateral aspect of the left kidney with gas and admitted to medical floor with a diagnosis of Left perinephric abscess , treated with IV Zosyn, underwent CT guided aspiration 05/25/2024 by IR , fluid culture grew E coli, Klebsiella, Streptococcus viridans, anaerobic culture grew Bacteroides, E coli and Klebsiella resistant to penicillin, therefore Zosyn discontinued and patient placed on IV ceftriaxone and IV Flagyl, blood cultures remained negative, patient responded well to above treatment she noted to have no recurrent fevers abdominal pain resolved GB drainage is gradually declining but persist between 30 to 70 mL patient followed closely by General surgery,abdominal imaging study done 05/31 showed significantly decreased left perinephric collection, band of soft tissue density seen between proximal descending colon and the collection suggest fistulous connection to the colon, surgery feel less likely to have colonic fistula, since primary source of abscess likely to be the kidney is said of colon, patient will be followed closely by General surgery and will have repeat CT scan for follow-up patient will finish total 14 day course of antibiotic now being discharged home on Ceftin and Flagyl for 4 more days as per ID recommendation, CHARLENE drain to be removed by General surgery, patient noted to have diarrhea likely antibiotic induced C diff toxin is negative recommend to continue Imodium as needed, patient potassium is stable will discontinue potassium replacement In regard to DM2 will DC metformin and recommend to continue glipizide and diabetic diet . HTN- continue lisinopril asthma-no acute exacerbation noted, continue montelukast, Symbicort. HLD- continue statin. Time Attestation Discharge Coordination Time (in mins): 40 Quality: Safe Use of Opioids Does Pt have an Active Cancer Diagnosis on the Problem List?: No Quality: Stroke Does the patient have a stroke diagnosis?: No Physical Exam Vital Signs: Vital Signs: Last Vital Signs Temp 96.9 F 06/03/24 07:10 Pulse 67 06/03/24 08:26 Resp 16 06/03/24 08:26 BP 142/84 H 06/03/24 07:10 Pulse Ox 97 06/03/24 07:10 O2 Del Method Room Air 06/03/24 07:10 BMI result Body Mass Index 43.4 Const: Other: Gen: in no acute distress HEENT: sclera anicteric, moist mucus membranes Neck: supple Lungs: clear to auscultation bilaterally Heart: regular rate and rhythm, no murmurs Abd: soft, non-tender, non-distended, no guarding, no rigidity : No L flank tenderness, CHARLENE drain purulent drainage Ext: no edema Skin: warm/well-perfused Neuro: alert and oriented x3, no focal findings Psych: appropriate affect DS: Data Data Completed and Pending Completed studies during hospitalization [Text1]: Pending at discharge 05/25/24 16:45 Surgical Path [Surgical] [PTH] Routine Procedures Dilation of Left Ureter with Intraluminal Device, Via Natural or Artificial Opening Endoscopic (03/02/24) Fluoroscopy of Left Kidney, Ureter and Bladder (03/02/24) Labs on day of discharge: Laboratory Results - last 24 hr 06/02/24 06/02/24 06/02/24 11:02 16:23 20:24 POC Glucose 132 H 110 135 H C. difficile Tox B Gene 06/02/24 06/03/24 Unknown 07:13 POC Glucose 118 H C. difficile Tox B Gene NEGATIVE Discharge Plan Discharge Anticipated Discharge Date/Time: 06/03/24 10:30 Patient Disposition: Home Health Service Discharge Diagnosis: Left perinephric abscess Diarrhea Referrals: Eva Galarza MD [Primary Care Provider] - 1 Week Discharge Medications: New metronidazole 500 mg Tablet 500 mg PO Q8H Qty: 12 0RF cefuroxime axetil 500 mg Tablet 500 mg PO Q12H Qty: 8 0RF Continued Mounjaro 7.5 mg/0.5 mL pen injector 7.5 mg subcut WE@0900 budesonide-formoterol [Symbicort] 160-4.5 mcg/actuation HFA aerosol inhaler 2 puff inhalation BID glipizide 5 mg tablet extended release 24hr 5 mg PO DAILY allopurinol 100 mg tablet 100 mg PO DAILY montelukast 10 mg tablet 10 mg PO BEDTIME norethindrone acetate 5 mg tablet 5 mg PO DAILY ondansetron 4 mg tablet,disintegrating 4 mg PO Q8H PRN (Reason: nausea/vomiting) ferrous sulfate 324 mg (65 mg iron) tablet,delayed release (DR/EC) 324 mg PO BID albuterol sulfate [Ventolin HFA] 90 mcg/actuation HFA aerosol inhaler 2 puff inhalation Q6H PRN (Reason: Shortness Of Breath Or Wheezing) meclizine 25 mg tablet 25 mg PO DAILY PRN (Reason: Vertigo) citalopram 40 mg tablet 40 mg PO DAILY simvastatin 40 mg tablet 40 mg PO BEDTIME lisinopril 20 mg tablet 20 mg PO DAILY Discontinued potassium citrate 10 mEq (1,080 mg) tablet extended release 20 meq PO BID metformin 1,000 mg tablet 1,000 mg PO BID Discharge Orders: Discharge Order (Routine); Ordered 07/12/24 Ordered By: Nayyer Ghias Diet: Diabetic diet Activity on Discharge: As tolerated Stand Alone Forms: Patient Portal Discharge page Print Language: Kyrgyz Care Plan Goals: Take by mouth antibiotics Ceftin and Flagyl for 4 more days Take Imodium as needed for diarrhea. Continue CHARLENE drain/to be removed by General surgery. Returned to check with recurrent abdominal pain, fever chill or worsening diarrhea. Health Concerns: Diabetes follow low-calorie diet Plan of Treatment: Follow-up with General surgery Dr. Huddleston in 1 week Follow-up with Urology Dr. Bonilla/Dr. Mckeon call for appointment next 5-7 days Assessment: As above
--- NOTE | 2024-06-03 10:44 | MHC.CM.PN ---
DP: PT HAS BEEN MEDICALLY CLEARED FOR DC HOME. PT DOES NOT FEEL SHE NEEDS A VNA SHE IS PROFICIENT WITH HER DRAIN CARE. MD NOTIFIED AND RN AWARE. PT HAS OWN RIDE HOME
== END 2024-06-03 11:16 | disposition home or self-care (01) | DRG 720 ==
LOC: HO.ED 20:04 → HO.EDOVER 23:23 → HO.S3 05-24 07:49
PROVIDERS: Family Medicine; Physician Assistant Medical; Admitting Provider Student in an Organized Health Care Education/Training Program; Emergency Provider Internal Medicine; PCP Internal Medicine; Visit Provider Hospitalist
DX: A41.9 Sepsis, unspecified organism (principal); N15.1 Renal and perinephric abscess; E66.01 Morbid (severe) obesity due to excess calories; E78.2 Mixed hyperlipidemia; J45.909 Unspecified asthma, uncomplicated; B96.20 Unspecified Escherichia coli [E. coli] as the cause of diseases classified elsewhere; B96.1 Klebsiella pneumoniae [K. pneumoniae] as the cause of diseases classified elsewhere; B95.4 Other streptococcus as the cause of diseases classified elsewhere; E87.6 Hypokalemia; N39.0 Urinary tract infection, site not specified; Z20.822 Contact with and (suspected) exposure to COVID-19; Z68.41 Body mass index [BMI] 40.0-44.9, adult; Z79.84 Long term (current) use of oral hypoglycemic drugs; Z79.899 Other long term (current) drug therapy
CPT/HCPCS: 0241U; 36415; 74176; 75989; 80048; 80053; 81001; 82947; 83605; 83735; 85025; 85027; 86140; 87040; 87070; 87073; 87077; 87086; 87186; 87205; 87493; 88112; 94640; 94664; 99152; 99285; C1729; J0696; J0736; J1836; J2270; J2405; J2543; J7120

== ENCOUNTER 2024-05-23 23:19 | Outpatient (BNV) | payer OTHER, SELFPAY | END 2024-05-25 14:41 | PROVIDERS: Admitting Provider Student in an Organized Health Care Education/Training Program; Emergency Provider Internal Medicine; PCP Internal Medicine; Visit Provider Radiology Vascular & Interventional Radiology | DX: K68.3 Retroperitoneal hematoma (principal) | CPT/HCPCS: 49406; 99152 ==

== ENCOUNTER → 2024-05-23 23:19 | Outpatient (BNV) | payer OTHER, SELFPAY | PROVIDERS: Admitting Provider Student in an Organized Health Care Education/Training Program; Emergency Provider Internal Medicine; PCP Internal Medicine; Visit Provider Internal Medicine | DX: R10.9 Unspecified abdominal pain (principal); G89.29 Other chronic pain; N15.1 Renal and perinephric abscess | CPT/HCPCS: 99222 ==

== ENCOUNTER → 2024-05-23 23:19 | Outpatient (BNV) | payer OTHER, SELFPAY | PROVIDERS: Admitting Provider Student in an Organized Health Care Education/Training Program; Emergency Provider Internal Medicine; PCP Internal Medicine; Visit Provider Urology | DX: N15.1 Renal and perinephric abscess (principal); S37.012D Minor contusion of left kidney, subsequent encounter | CPT/HCPCS: 99222; 99232 ==

== ENCOUNTER → 2024-05-23 23:19 | Outpatient (BNV) | payer OTHER, SELFPAY | PROVIDERS: Admitting Provider Student in an Organized Health Care Education/Training Program; Emergency Provider Internal Medicine; PCP Internal Medicine; Visit Provider Surgery | DX: N15.1 Renal and perinephric abscess (principal); S37.012D Minor contusion of left kidney, subsequent encounter | CPT/HCPCS: 99222; 99231; 99232 ==

== ENCOUNTER → 2024-05-23 23:19 | Outpatient (BNV) | payer OTHER, SELFPAY | PROVIDERS: Admitting Provider Student in an Organized Health Care Education/Training Program; Emergency Provider Internal Medicine; PCP Internal Medicine; Visit Provider Student in an Organized Health Care Education/Training Program | DX: N15.1 Renal and perinephric abscess (principal) | CPT/HCPCS: 99222; 99232; 99239; G0180 ==

== ENCOUNTER 2024-06-06 12:38 | Outpatient (AMB) | payer OTHER, SELFPAY ==
--- NOTE | 2024-06-06 12:46 | A.OFFVIS_ITS ---
Vital Signs 06/06/24 12:54 Weight 264 lb BP 123/71 Blood Pressure Location Rt brachial Position Sitting Pulse 94 Intake Visit Reasons: s/p perinephric abscess surgery Intake Note: This patient presents for an assessment for abscess. Patient c/o; reports no complaints at this time. Risk Management Consultant Required: No Accompanied by: Self / Same As Patient Allergies sulfamethoxazole [From Bactrim] Allergy (Mild, Verified 06/06/24 12:54) Hives trimethoprim [From Bactrim] Allergy (Unknown, Verified 06/06/24 12:54) Anaphylaxis FISH Allergy (Unknown, Uncoded 06/06/24 12:54) Anaphylaxis Medication List - Last Reconciled 06/06/24 by Marco A Huddleston MD albuterol sulfate 90 mcg/actuation (Ventolin HFA) 2 puffs inhalation Q6H PRN allopurinol 100 mg PO DAILY budesonide-formoterol 160-4.5 mcg/actuation (Symbicort) 2 puffs inhalation BID cefuroxime axetil 500 mg PO Q12H citalopram 40 mg PO DAILY ferrous sulfate 324 mg PO BID glipizide ER 5 mg PO DAILY lisinopril 20 mg PO DAILY meclizine 25 mg PO DAILY PRN metronidazole 500 mg PO Q8H montelukast 10 mg PO BEDTIME norethindrone acetate 5 mg PO DAILY ondansetron 4 mg PO Q8H PRN simvastatin 40 mg PO BEDTIME tirzepatide (Mounjaro) 7.5 mg subcut WE@0900 HPI HPI s/p perinephric abscess surgery: Details: 53-year-old female here for a follow-up for a perinephric abscess. She had undergone CT drainage this in the hospital 2 weeks ago. Her CAT scan could not rule out a fistulous connection to the left colon She does have a long history of problems with her left kidney including with hematoma after procedures for staghorn calculi. She says that the CHARLENE drain has had less than 10 cc of output every day now. She denies any significant pain. He is good oral intake. [facility] Medical History Hematoma of kidney Perinephric hematoma Asthma Benign paroxysmal positional vertigo Obesity Cataract CKD (chronic kidney disease) Depression HLD (hyperlipidemia) Diabetes HTN (hypertension) Sleep apnea History of kidney stones History of in vitro fertilization Surgical History H/O breast biopsy History of ureteroscopy Hx of ectopic History of open heart surgery Family History Father Cancer Mother Epilepsia Dementia Brother Drug abuse Bipolar 1 disorder Son No problems noted. Social History Household Members: Spouse and Children Housing: House Do you presently have visiting nurse or other home services: No Alcohol intake: never Patient Tobacco Use Status: Never used Tobacco Advance Directives Date on File: 04/12/24 service: No Review of Systems Const Denies chills and Denies fever(s) Card Denies chest pain, Denies dyspnea and Denies dyspnea on exertion Resp Denies cough, Denies dyspnea and Denies dyspnea on exertion GI Denies hematochezia and Denies change in bowel habits Denies hematuria Musc Denies back pain and Denies limited range of motion Neuro Denies focal weakness and Denies convulsions Psych Denies depression and Denies mood swings Physical Exam Vital Signs: Last Vital Signs Pulse 94 06/06/24 12:54 BP 123/71 06/06/24 12:54 Const Other: Morbidly obese General: comfortable and no acute distress Resp Effort & Inspection: normal respiratory effort Cardio Rate: regular rate GI Other: CHARLENE drain with scanty whitish output Palpation (GI): Soft to palpation, not firm, nontender and no guarding Assessment & Plan Assessment & Plan (1) Perinephric abscess: Code(s): N15.1 - Renal and perinephric abscess Category: Medical Plan: Status post CT drain in place. I told her I will not pull out the IR drain at this time. He does notice less than 30 cc about once every day. I will see her again next week to re-evaluate. I told her to continue to monitor the output and make sure to empty the CHARLENE drain at least once a day She is doing well overall. She has a follow-up with Dr. Ochoa of Urology in 2 weeks I will see her again in the office next week therefore. Coding Level of Care Code Est Pt Level 2 (92856) Diagnoses Perinephric abscess N15.1
[2024-06-06 12:54] VITALS: BP 123/71; PULSE 94
== END 2024-06-06 12:59 | disposition home or self-care (01) ==
PROVIDERS: PCP Internal Medicine; Visit Provider Surgery
DX: N15.1 Renal and perinephric abscess (principal)
CPT/HCPCS: 99212

== ENCOUNTER → 2024-06-06 12:38 | Outpatient (BNVA) | payer OTHER, SELFPAY | PROVIDERS: PCP Internal Medicine; Visit Provider Surgery ==

== ENCOUNTER 2024-06-13 12:54 | Outpatient (AMB) | payer OTHER, SELFPAY ==
--- NOTE | 2024-06-13 12:56 | MHC.OFFVIS ---
Vital Signs 06/13/24 13:05 Weight 265 lb Intake Visit Reasons: s/p perinephric abscess surgery Intake Note: This patient presents for a follow-up for Perinephric abscess. Patient c/o; reports drainage, reports output from drain is about 30 mL q24h. [employer]ician [employer] Required: No Accompanied by: Self / Same As Patient Allergies sulfamethoxazole [From Bactrim] Allergy (Mild, Verified 06/13/24 12:58) Hives trimethoprim [From Bactrim] Allergy (Unknown, Verified 06/13/24 12:58) Anaphylaxis FISH Allergy (Unknown, Uncoded 06/13/24 12:58) Anaphylaxis Medication List - Last Reconciled 06/13/24 by Marco A Huddleston MD albuterol sulfate 90 mcg/actuation (Ventolin HFA) 2 puffs inhalation Q6H PRN allopurinol 100 mg PO DAILY budesonide-formoterol 160-4.5 mcg/actuation (Symbicort) 2 puffs inhalation BID cefuroxime axetil 500 mg PO Q12H citalopram 40 mg PO DAILY ferrous sulfate 324 mg PO BID glipizide ER 5 mg PO DAILY lisinopril 20 mg PO DAILY meclizine 25 mg PO DAILY PRN metronidazole 500 mg PO Q8H montelukast 10 mg PO BEDTIME norethindrone acetate 5 mg PO DAILY ondansetron 4 mg PO Q8H PRN simvastatin 40 mg PO BEDTIME tirzepatide (Mounjaro) 7.5 mg subcut WE@0900 HPI HPI s/p perinephric abscess surgery: Details: She is here for a follow-up for her CHARLENE drain with a perinephric abscess. She says she is feeling well and denies any significant complaints. She says that her CHARLENE drain output has been decreasing and it is now down to 15-20 cc over 24 hours every day. [facility] Medical History Hematoma of kidney Perinephric hematoma Asthma Benign paroxysmal positional vertigo Obesity Cataract CKD (chronic kidney disease) Depression HLD (hyperlipidemia) Diabetes HTN (hypertension) Sleep apnea History of kidney stones History of in vitro fertilization Surgical History H/O breast biopsy History of ureteroscopy Hx of ectopic History of open heart surgery Family History Father Cancer Mother Epilepsia Dementia Brother Drug abuse Bipolar 1 disorder Son No problems noted. Social History Household Members: Spouse and Children Housing: House Do you presently have visiting nurse or other home services: No Alcohol intake: never Patient Tobacco Use Status: Never used Tobacco Advance Directives Date on File: 04/12/24 service: No Review of Systems Const Denies chills and Denies fever(s) Card Denies chest pain, Denies dyspnea and Denies dyspnea on exertion Resp Denies cough, Denies dyspnea and Denies dyspnea on exertion GI Denies hematochezia and Denies change in bowel habits Denies hematuria Musc Denies back pain and Denies limited range of motion Neuro Denies focal weakness and Denies convulsions Psych Denies depression and Denies mood swings Physical Exam Const Other: Morbidly obese General: comfortable and no acute distress Resp Effort & Inspection: normal respiratory effort GI Other: CHARLENE drain in place, scanty output but thick and purulent Palpation (GI): Soft to palpation, not firm, nontender and no guarding Assessment & Plan Assessment & Plan (1) Perinephric abscess: Code(s): N15.1 - Renal and perinephric abscess Category: Medical Plan: Status post IR drain. Her output from the CHARLENE drain is very minimal but this still seems to be thick and purulent so I will hold off on pulling this out. There was a concern about this being secondary to a diverticular disease from the colon but this seems to be primarily from a previous perinephric infection with a hematoma after procedures for her staghorn calculus. She has a follow up with Urology next week as well. She denies any GI complaints. She denies any abdominal pain. I will see her again in the office next week. Coding Level of Care Code Est Pt Level 2 (53949) Diagnoses Perinephric abscess N15.1
== END 2024-06-13 13:41 | disposition home or self-care (01) ==
PROVIDERS: PCP Internal Medicine; Visit Provider Surgery
DX: N15.1 Renal and perinephric abscess (principal)
CPT/HCPCS: 99212

== ENCOUNTER → 2024-06-13 12:54 | Outpatient (BNVA) | payer OTHER, SELFPAY | PROVIDERS: PCP Internal Medicine; Visit Provider Surgery ==

== ENCOUNTER → 2024-06-15 12:29 | Outpatient (REF) | payer OTHER, SELFPAY ==
--- NOTE | ~2024-06-15 | NM_ITS ---
EXAMINATION: NM RENOGRAM WITH LASIX CLINICAL INFORMATION: Minor contusional left kidney. Subsequent encounter. COMPARISON: CT of the abdomen and pelvis done on 04/11/2024, 05/23/2024 and 05/25/2024 and 06/10/2024. TECHNIQUE: Dynamic renal scintigraphy was performed after intravenous administration of 10 mCi Tc-99m Technetium 99m DTPA 40 mg of furosemide was administered at 30 minutes and continued dynamic imaging of the abdomen/pelvis was obtained for a total of 50 minutes. The imaging was stopped at 20 minutes post Lasix injection since patient needed to go to the bathroom. FINDINGS: Left kidney 53.5% and the right kidney 46.5% of total renal uptake. Left Kidney: Normal perfusion. Following administration of furosemide, there is progressive washout of radiotracer noted from the left renal pelvicalyceal system before and after administration of Lasix. The patient is known to have an internal left-sided ureteric stent. Right Kidney: Normal perfusion. Following administration of furosemide, there is progressive washout noted before and after administration of Lasix. No meaningful T1/ 2 of Lasix could be calculated on either side given progressive washout started before administration of Lasix on both sides. Other: The urinary bladder is well-visualized. No evidence of any reflux on post void images. NM/NM renal flow w pharm int IMPRESSION: 1. Differential renal function: Left 53.5%, Right 46.5%. 2. Left kidney has nonobstructing parameters after diuresis. The patient is known to have internal ureteric stent. 3. Right kidney has nonobstructing parameters after diuresis.
== END ==
LOC: HO.NUCMED 12:29
PROVIDERS: PCP Internal Medicine; Visit Provider Urology
DX: S37.012D Minor contusion of left kidney, subsequent encounter (principal)
CPT/HCPCS: 78708; A9539; J1940

== ENCOUNTER 2024-06-20 11:07 | Outpatient (AMB) | payer OTHER, SELFPAY ==
--- NOTE | 2024-06-20 11:13 | MHC.OFFVIS ---
Vital Signs 06/20/24 11:16 Height 5 ft 6 in Weight 266 lb 4 oz BMI 43.0 Intake Visit Reasons: drain removal Intake Note: This patient presents for drain removal for perinephric abscess. Pt c/o; reports no complaints. Policy And Planning Manager Required: No Accompanied by: Self / Same As Patient Allergies sulfamethoxazole [From Bactrim] Allergy (Mild, Verified 06/20/24 11:14) Hives trimethoprim [From Bactrim] Allergy (Unknown, Verified 06/20/24 11:14) Anaphylaxis FISH Allergy (Unknown, Uncoded 06/20/24 11:14) Anaphylaxis Medication List - Last Reconciled 06/20/24 by Marco A Huddleston MD albuterol sulfate 90 mcg/actuation (Ventolin HFA) 2 puffs inhalation Q6H PRN allopurinol 100 mg PO DAILY budesonide-formoterol 160-4.5 mcg/actuation (Symbicort) 2 puffs inhalation BID cefuroxime axetil 500 mg PO Q12H citalopram 40 mg PO DAILY ferrous sulfate 324 mg PO BID glipizide ER 5 mg PO DAILY lisinopril 20 mg PO DAILY meclizine 25 mg PO DAILY PRN metronidazole 500 mg PO Q8H montelukast 10 mg PO BEDTIME norethindrone acetate 5 mg PO DAILY ondansetron 4 mg PO Q8H PRN simvastatin 40 mg PO BEDTIME tirzepatide (Mounjaro) 7.5 mg subcut WE@0900 HPI HPI drain removal: Details: She is here for a follow-up for her drain for her perinephric abscess on the left. She denies any new complaints The output under drain has been down to less than 5 cc every day. She feels well overall. [facility] Medical History Hematoma of kidney Perinephric hematoma Asthma Benign paroxysmal positional vertigo Obesity Cataract CKD (chronic kidney disease) Depression HLD (hyperlipidemia) Diabetes HTN (hypertension) Sleep apnea History of kidney stones History of in vitro fertilization Surgical History H/O breast biopsy History of ureteroscopy Hx of ectopic History of open heart surgery Family History Father Cancer Mother Epilepsia Dementia Brother Drug abuse Bipolar 1 disorder Son No problems noted. Social History Household Members: Spouse and Children Housing: House Do you presently have visiting nurse or other home services: No Alcohol intake: never Patient Tobacco Use Status: Never used Tobacco Advance Directives Date on File: 04/12/24 service: No Review of Systems Const Denies chills and Denies fever(s) Card Denies chest pain, Denies dyspnea and Denies dyspnea on exertion Resp Denies cough, Denies dyspnea and Denies dyspnea on exertion GI Denies hematochezia and Denies change in bowel habits Denies hematuria Musc Denies back pain and Denies limited range of motion Neuro Denies focal weakness and Denies convulsions Psych Denies depression and Denies mood swings Physical Exam Vital Signs: BMI result Body Mass Index 43.0 Const Other: Morbidly obese General: comfortable and no acute distress GI Other: CHARLENE drain in place, output scanty although purulent Palpation (GI): Soft to palpation, not firm and nontender Assessment & Plan Assessment & Plan (1) Perinephric abscess: Code(s): N15.1 - Renal and perinephric abscess Category: Medical Plan: Status post IR drain. The output from her drain has gone down to less than 5 cc every day. This is unlikely to be from a fistulous tract to the colon therefore She is to see her urologist today. The drain may come out today if the urologist feels appropriate She can follow up with me on a p.r.n. basis. Coding Level of Care Code Est Pt Level 2 (28962) Diagnoses Perinephric abscess N15.1
[2024-06-20 11:16] VITALS: BMI 43.0
== END 2024-06-20 11:21 | disposition home or self-care (01) ==
PROVIDERS: PCP Internal Medicine; Visit Provider Surgery
DX: N15.1 Renal and perinephric abscess (principal)
CPT/HCPCS: 99212

== ENCOUNTER → 2024-06-20 11:07 | Outpatient (BNVA) | payer OTHER, SELFPAY | PROVIDERS: PCP Internal Medicine; Visit Provider Surgery | DX: N15.1 Renal and perinephric abscess (principal); N20.0 Calculus of kidney; N12 Tubulo-interstitial nephritis, not specified as acute or chronic; S37.012D Minor contusion of left kidney, subsequent encounter | CPT/HCPCS: 81003 ==

== ENCOUNTER 2024-06-20 12:24 | Outpatient (AMB) | payer OTHER, SELFPAY ==
--- NOTE | 2024-06-20 13:03 | A.OFFVIS_ITS ---
Intake Visit Reasons: 6W/ER Follow up/renal scan(06/15) Intake Note: Patient is Present for 6w/ER Follow Up Urology Med:NONE Antibiotic Allergy: Sulfa, Trimethroprim Blood Thinner: None Assistive Technology Trainer Required: No Allergies sulfamethoxazole [From Bactrim] Allergy (Mild, Verified 06/20/24 13:07) Hives trimethoprim [From Bactrim] Allergy (Unknown, Verified 06/20/24 13:07) Anaphylaxis FISH Allergy (Unknown, Uncoded 06/20/24 13:07) Anaphylaxis Medication List - Last Reconciled 06/20/24 by Justo Rodríguez MD albuterol sulfate 90 mcg/actuation (Ventolin HFA) 2 puffs inhalation Q6H PRN allopurinol 100 mg PO DAILY budesonide-formoterol 160-4.5 mcg/actuation (Symbicort) 2 puffs inhalation BID cefuroxime axetil 500 mg PO Q12H citalopram 40 mg PO DAILY ferrous sulfate 324 mg PO BID glipizide ER 5 mg PO DAILY lisinopril 20 mg PO DAILY meclizine 25 mg PO DAILY PRN metronidazole 500 mg PO Q8H montelukast 10 mg PO BEDTIME norethindrone acetate 5 mg PO DAILY ondansetron 4 mg PO Q8H PRN simvastatin 40 mg PO BEDTIME tirzepatide (Mounjaro) 7.5 mg subcut WE@0900 HPI Comments Details: 06/20/24--Gabriela is here in follow-up. Since her last office visit the patient was hospitalized and treated for perinephric abscess with placement of drain by Interventional Radiology. During hospitalization she was also evaluated by General surgery as there was a question of a diverticular fistula. Currently the drain is putting out about 10 -15 mL per 24 hours. On evaluation there is purulent drainage in the CHARLENE drain. The patient denies pain she denies any fevers. She was seen by General surgery today note was reviewed I have reviewed Lasix renal scan which notes good function bilaterally. I have discussed changing the left ureteral stent. Before removing the CHARLENE drain would like to get a CT scan and if consideration for Interventional to inject the CHARLENE at time removal. Gabriela is stable to return to work on 06/27/2024. Review of chart: 05/18/24--Gabriela presents for telehealth follow-up. She states that she is feeling better she has less pain. She is drinking a lot of water throughout the day so that she is going frequently to the bathroom. Lasix renal scan is pe nding for June 07. Plan is to have her return to work next week without restrictions. The patient states that she does have 2 flights of stairs but then sits at a desk primarily during the day. 05/05/24--Gabriela is a 53-year-old female who was in the emergency room on 04/19 24 with pain. Comobidity, diabetes, morbid obesity. She has a history of left staghorn calculus. Due to the size of the staghorn calculus she had staged ureteroscopy. She is status post ureteroscopy on 12/28/2023 stent was placed at that time. She had repeat ureteroscopy on 02/08/2024 and there was residual stone. The patient presented to the emergency room on 03/02/2024 due to pain and fever CT imaging was notable for a subcapsular hematoma, a ureteral stent was placed on 03/03/2024. The patient was hospitalized again in March. CTA was performed on 04/08/24 without active extravasation or pseudoaneurysm. CT at that time also noted a 2nd hematoma. The patient was recently evaluated on 04/19/24 in the emergency room with complaints of pain. Workup was negative for infection. I have discussed with the patient that it will take several weeks for the hematomas to absorb. Follow-up renal ultrasound 04/25/2024 reviewed, Large left subcapsular hematoma compressing the left kidney, complex fluid collection between the left kidney and spleen, which was noted previously on CT imaging. I have discussed that is important to have limited strenuous activity. The patient states that she has had fatigue. I feel that it is medically indicated to have her out of work for a period of time. Will reassess in 2 weeks. Will check a Lasix renal scan andl also will review films with Interventional Radiology. [facility] Medical History Hematoma of kidney Perinephric hematoma Asthma Benign paroxysmal positional vertigo Obesity Cataract CKD (chronic kidney disease) Depression HLD (hyperlipidemia) Diabetes HTN (hypertension) Sleep apnea History of kidney stones History of in vitro fertilization Surgical History H/O breast biopsy History of ureteroscopy Hx of ectopic History of open heart surgery Family History Father Cancer Mother Epilepsia Dementia Brother Drug abuse Bipolar 1 disorder Son No problems noted. Social History Household Members: Spouse and Children Housing: House Do you presently have visiting nurse or other home services: No Alcohol intake: never Patient Tobacco Use Status: Never used Tobacco Advance Directives Date on File: 04/12/24 service: No Review of Systems Const All systems reviewed & are unremarkable except as noted in HPI and below Reports no additional complaints Eyes Reports no additional complaints ENT Reports no additional complaints Card Reports no additional complaints Resp Reports no additional complaints GI Reports no additional complaints Reports as per HPI Musc Reports no additional complaints Skin/Breast Reports system reviewed and no additional complaints, except as documented Neuro Reports no additional complaints Psych Reports no additional complaints Endo Reports no additional complaints Jose/Lymph Reports no additional complaints Aller/Immun Reports no additional complaints Results AMB Urinalysis, Automated UA Leukoctes 15 Luke/uL Last Edit by KEVIN Napier on 06/20/24 13:14 UA Nitrite Negative Last Edit by KEVIN Napier on 06/20/24 13:14 UA Urobilinogen 0.2 mg/dL Last Edit by KEVIN Napier on 06/20/24 13:1 4 UA Protein 100 mg/dL Last Edit by KEVIN Napier on 06/20/24 13:14 UA pH 5.5 Last Edit by KEVIN Napier on 06/20/24 13:14 UA Blood 200 Tacos/uL Last Edit by KEVIN Napier on 06/20/24 13:14 UA Specific Marilla 1.015 Last Edit by KEVIN Napier on 06/20/24 13: 14 UA Ketone Negative Last Edit by KEVIN Napier on 06/20/24 13:14 UA Bilirubin 0 mg/dL Last Edit by KEVIN Napier on 06/20/24 13:14 UA Glucose 1000 mg/dL Last Edit by KEVIN Napier on 06/20/24 13:14 Results Reviewed Results Reviewed: Laboratory Last Values Urine pH (Auto) 5.5 06/20/24 13:14 Specific Marilla (Auto) 1.015 06/20/24 13:14 Urine Protein (Auto) 100 mg/dL 06/20/24 13:14 Glucose (UA)(Auto) 1000 mg/dL 06/20/24 13:14 Urine Ketones (Auto) Negative 06/20/24 13:14 Urine Blood (Auto) 200 Tacos/uL 06/20/24 13:14 Urine Nitrite (Auto) Negative 06/20/24 13:14 Urine Bilirubin (Auto) 0 mg/dL 06/20/24 13:14 Urine Urobilinogen (Auto) 0.2 mg/dL 06/20/24 13:14 Leukocyte Esterase (Auto) 15 Luke/uL 06/20/24 13:14 Date of Service: 06/15/24 NM RENOGRAM WITH LASIX CLINICAL INFORMATION: Minor contusional left kidney. Subsequent encounter. COMPARISON: CT of the abdomen and pelvis done on 04/11/2024, 05/23/2024 and 05/25/2024 and 06/10/2024. TECHNIQUE: Dynamic renal scintigraphy was performed after intravenous administration of 10 mCi Tc-99m Technetium 99m DTPA 40 mg of furosemide was administered at 30 minutes and continued dynamic imaging of the abdomen/pelvis was obtained for a total of 50 minutes. The imaging was stopped at 20 minutes post Lasix injection since patient needed to go to the bathroom. FINDINGS: Left kidney 53.5% and the right kidney 46.5% of total renal uptake. Left Kidney: Normal perfusion. Following administration of furosemide, there is progressive washout of radiotracer noted from the left renal pelvicalyceal system before and after administration of Lasix. The patient is known to have an internal left-sided ureteric stent. Right Kidney: Normal perfusion. Following administration of furosemide, there is progressive washout noted before and after administration of Lasix. No meaningful T1/ 2 of Lasix could be calculated on either side given progressive washout started before administration of Lasix on both sides. Other: The urinary bladder is well-visualized. No evidence of any reflux on post void images. IMPRESSION: 1. Differential renal function: Left 53.5%, Right 46.5%. 2. Left kidney has nonobstructing parameters after diuresis. The patient is known to have internal ureteric stent. 3. Right kidney has nonobstructing parameters after diuresis. Date of Service: 05/31/24 CT ABDOMEN AND PELVIS WITHOUT CONTRAST CLINICAL INFORMATION: Abscess follow-up COMPARISON: CT abdomen pelvis 05/23/2024. CT guided abscess drainage 05/25/2024. CT angiogram abdomen pelvis 04/08/2024. TECHNIQUE: Multidetector volumetric imaging was performed from the superior aspect of the liver through the pubic symphysis. Sagittal and coronal reformatted images were obtained on the technologist's workstation. This CT examination was performed using dose optimization techniques as appropriate, variously including the following: *Automated exposure control *Adjustment of mA and/or kV according to patient size (this includes techniques or standardized protocols for targeted exams where dose is matched to indication/reason for exam; i.e. extremities or head) *Use of iterative reconstruction technique DLP: 891.63 mGy-cm FINDINGS: LUNG BASES: The visualized lung bases are unremarkable. LIVER, GALLBLADDER, AND BILIARY TREE: The liver is normal in size and shape with slightly decreased attenuation suggesting hepatic steatosis. No focal hepatic lesion or biliary ductal dilatation is present. The gallbladder is unremarkable with no evidence of radiopaque gallstones, gallbladder wall thickening, or obvious pericholecystic inflammatory changes. PANCREAS: A cyst is present in the pancreatic tail with surrounding inflammatory change measuring 5.3 x 3.7 x 3.2 cm which has decreased in size since 05/23/2024 when this measured 7.6 x 4.8 cm in transverse dimension. SPLEEN: Spleen is enlarged at 13.9 cm. ADRENAL GLANDS: Unremarkable. KIDNEYS AND URETERS: The catheter that was placed into the perirenal space remains and the perirenal/subcapsular collection previously seen has significantly decreased in size. Without IV contrast it is difficult to assess the remaining size but this appears to measure only about 4.0 x 2.4 x 3.8 cm. The catheter is at the left lateral edge of the collection. A few air bubbles are seen within the collection. A double-J left internally dwelling ureteral stent is present. There is no left-sided hydronephrosis. There is a small 3 mm round calcification seen in the left renal hilum consistent with a stone also present on 05/23/2024. The right kidney is normal with a 2.2 cm benign Bosniak class I cyst at the upper pole which requires no additional imaging or follow-up. 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 BLADDER: Unremarkable. GASTROINTESTINAL TRACT: The small and large bowel are unremarkable. The appendix is unremarkable. ABDOMINAL WALL: No significant hernia is appreciated. Tiny periumbilical hernia containing only fat. Above-mentioned drainage catheter left abdominal wall. LYMPH NODES: No retroperitoneal lymphadenopathy. VASCULAR: Unremarkable. PELVIC VISCERA: The uterus and adnexa are unremarkable. OSSEOUS STRUCTURES: Unremarkable. IMPRESSION: 1. The left perirenal/subcapsular collection has significantly decreased in size. The catheter remains in place. 2. 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 3. A cyst is present in the pancreatic tail with surrounding inflammatory change which has decreased in size since 05/23/2024. Date of Service: 04/25/24 EXAMINATION: US RETROPERITONEAL LIMITED (RENAL ONLY) CLINICAL INFORMATION: Calculus of kidney. COMPARISON: Multiple CT scans of the abdomen and pelvis most recently 04/19/2024 TECHNIQUE: Ultrasound of the kidneys was performed FINDINGS: RIGHT KIDNEY: 13.5 x 5.0 x 6.0 cm (SAG x AP x TRV). The kidney is normal in size, contour, and echogenicity. Renal cortical thickness is normal. No calculi . No hydronephrosis. A benign upper pole 2.5 cm Bosniak class I renal cyst is noted which requires no additional imaging or follow up. No solid renal masses are seen. LEFT KIDNEY: 15.6 x 5.2 x 5.5 cm (SAG x AP x TRV). The kidney is normal in size but is compressed by a large subcapsular hematoma measuring 16.3 x 8.3 x 12.7 cm. Similar findings could be seen on the prior CT scan. In addition, there is another complex fluid collections seen in between the kidney and spleen measuring 11.0 x 9.8 x 11.0 which could also be seen on the prior CT scan. Renal cortical thickness is difficult to assess because of compression. No calculi or hydronephrosis. IMPRESSION: 1. Large left subcapsular hematoma compressing the left kidney. 2. Complex fluid collection between the left kidney and spleen, probably a hematoma as well. 3. No renal calculi are seen. Date of Service: 04/19/24 EXAMINATION: CT ABDOMEN AND PELVIS WITHOUT CONTRAST CLINICAL INFORMATION: Left flank pain COMPARISON: Multiple priors, most recent 04/08/2024 TECHNIQUE: Multidetector volumetric imaging was performed from the superior aspect of the liver through the pubic symphysis. Sagittal and coronal reformatted images were obtained on the technologist's workstation. This CT examination was performed using dose optimization techniques as appropriate, variously including the following: *Automated exposure control *Adjustment of mA and/or kV according to patient size (this includes techniques or standardized protocols for targeted exams where dose is matched to indication/reason for exam; i.e. extremities or head) *Use of iterative reconstruction technique DLP: 1074 mGy-cm FINDINGS: LUNG BASES: The visualized lung bases are unremarkable. LIVER, GALLBLADDER, AND BILIARY TREE: The liver is normal in size, shape, and attenuation. No focal hepatic lesion or biliary ductal dilatation is identified on this noncontrast exam. The gallbladder is unremarkable with no evidence of radiopaque gallstones, gallbladder wall thickening, or obvious pericholecystic inflammatory changes. PANCREAS: Parenchyma appears grossly unremarkable. Fluid collection adjacent to the pancreatic tail as described below. SPLEEN: Unremarkable. ADRENAL GLANDS: Unremarkable. KIDNEYS AND URETERS: Limited evaluation in the absence of intravenous contrast. There is a subcapsular collection along the lateral margin of the left kidney measuring up to approximately 13.4 x 10.7 cm on image 49/106, previously 13.1 x 10.0 cm when measured in similar fashion. Anteriorly this measures approximately -4 Hounsfield units, versus 22 Hounsfield units previously. There is also an enlarging collection superior to the left kidney adjacent to the pancreatic tail, measuring approximately 11.3 x 8.9 cm and -9 Hounsfield units currently versus 7.9 x 4.8 cm and 16 Hounsfield units previously. Surrounding stranding is present. A left ureteral stent is present extending from the renal pelvis to the bladder. No significant hydronephrosis. Multiple calcifications are present in the left renal pelvis and calyces, with largest fragment in the pelvis suspected to measure up to approximately 1.3 cm. No right-sided hydronephrosis or calculus. Small right upper pole renal cyst; no follow-up recommended. BLADDER: Mildly distended. Left ureteral stent terminates in the bladder. GASTROINTESTINAL TRACT: No evidence of bowel obstruction or significant wall thickening. The appendix is unremarkable. No free air is seen. ABDOMINAL WALL: No significant hernia is appreciated. LYMPH NODES: Scattered mesenteric and retroperitoneal subcentimeter lymph nodes are present, without significant enlargement by size criteria. VASCULAR: Unremarkable. PELVIC VISCERA: Grossly unremarkable. OSSEOUS STRUCTURES: Degenerative changes of the lower thoracic spine. IMPRESSION: 1. Limited evaluation of renal parenchyma in the absence of intravenous contrast. Large subcapsular collection/evolving hematoma along the lateral margin of the left kidney appears similar to possibly minimally increased in size to 04/08/2024. However, an additional collection superior to the left kidney adjacent to the pancreatic tail has increased in size compared to prior, measuring up to 11.3 cm in greatest dimension currently versus 7.9 cm previously. This may also represent an evolving hematoma, as internal density is similar to the renal subcapsular collection. In the proper clinical setting, a pancreatic pseudocyst could have a similar appearance. 2. Left ureteral stent in place, without hydronephrosis. Multiple calcifications in the left renal pelvis and calyces, with largest fragment in the pelvis measuring up to 1.3 cm. Date of Service: 04/08/24 EXAMINATION: CT ANGIOGRAPHY ABDOMEN WITH CONTRAST CLINICAL INFORMATION: Kidney hematoma, r o ongoing bleeding, source ? COMPARISON: CT abdomen/pelvis 04/07/2024 TECHNIQUE: Initial noncontrast localizing school curriculum developer images were obtained. A timing bolus at the level of the celiac artery was calculated. Subsequently, arterial phase multidetector volumetric imaging was performed through the abdomen following the administration of 100 mL Omnipaque 350 intravenous contrast. No contrast reaction reported. Sagittal and coronal reformatted images were obtained on the technologist workstation. After extensive post-processing on a dedicated 3-D workstation, 3-D reformatted images were uploaded to PACS and reviewed as well. This CT examination was performed using dose optimization techniques as appropriate, variously including the following: *Automated exposure control *Adjustment of mA and/or kV according to patient size (this includes techniques or standardized protocols for targeted exams where dose is matched to indication/reason for exam; i.e. extremities or head) *Use of iterative reconstruction technique DLP: 632 mGy-cm FINDINGS: VASCULAR FINDINGS: Aorta: No aneurysm or dissection of the abdominal aorta. No penetrating atheromatous ulcer. Mesenteric Arteries: Celiac artery is patent. Superior mesenteric artery patent. Inferior mesenteric artery patent. Renal arteries: Single renal arteries bilaterally. Renal arteries are patent and without stenosis or other vascular anomaly. Iliac arteries: The common iliac arteries are patent. NONVASCULAR: Lung Bases: The visualized lung bases are clear. Liver: Homogeneous in attenuation. Normal in size. Gallbladder: Noninflamed. Biliary System: No intrahepatic or extrahepatic biliary dilation. Pancreas: Homogeneous in attenuation. Pancreatic tail collection. Spleen: Normal in size. Genitourinary: Large left subcapsular hematoma measuring 12.8 x 9.8 x 14.6 cm resulting in extrinsic compression of the renal parenchyma. No focal pseudoaneurysm or active extravasation is identified in the region of the hematoma. Partially evaluated left renal collecting system stent. No renal calculi. No hydroureteronephrosis. Adrenal Glands: Unremarkable. Gastrointestinal: The visualized alimentary tract is normal in course. No evidence of obstruction. Peritoneum: No pneumoperitoneum. Pancreatic tail intraperitoneal fluid collection measuring 8 x 4.4 x 3.4 cm, likely a hematoma. Lymph Nodes: No pathologically enlarged abdominal or pelvic lymph nodes. Soft Tissues/Musculoskeletal: There is no acute fracture or significant focal osseous lesion. IMPRESSION: 1. Large left subcapsular renal hematoma measuring 12.8 x 9.8 x 14.6 cm without active extravasation or pseudoaneurysm. 2. Intraperitoneal fluid collection near the pancreatic tail measuring 8 x 4.4 x 3.4 cm. When compared to prior noncontrast CT study performed 04/07/2024, the size of this is unchanged. Date of Service: 03/02/24 EXAMINATION: CT ABDOMEN AND PELVIS WITHOUT CONTRAST CLINICAL INFORMATION: Fever after urologic procedure COMPARISON: Cystoscopy and left ureteroscopy 02/08/2024, CT abdomen pelvis 08/13/2023 TECHNIQUE: Multidetector volumetric imaging was performed from the superior aspect of the liver through the pubic symphysis. Sagittal and coronal reformatted images were obtained on the technologist's workstation. This CT examination was performed using dose optimization techniques as appropriate, variously including the following: *Automated exposure control *Adjustment of mA and/or kV according to patient size (this includes techniques or standardized protocols for targeted exams where dose is matched to indication/reason for exam; i.e. extremities or head) *Use of iterative reconstruction technique DLP: 1139 mGy-cm FINDINGS: LUNG BASES: The visualized lung bases are unremarkable. LIVER, GALLBLADDER, AND BILIARY TREE: The liver is normal in size, shape, and attenuation. No focal hepatic lesion or biliary ductal dilatation is present. The gallbladder is unremarkable with no evidence of radiopaque gallstones, gallbladder wall thickening, or obvious pericholecystic inflammatory changes. PANCREAS: Unremarkable. SPLEEN: Unremarkable. ADRENAL GLANDS: Unremarkable. KIDNEYS AND URETERS: Right: At the upper pole the right kidney there is a 1.8 cm benign cyst which needs no additional imaging or follow-up. The kidney otherwise appears unremarkable without stones, hydronephrosis or suspicious masses. The right ureter is nondilated. Left: There is a moderate-sized subcapsular hematoma around the left kidney with a rind as thick as 2 cm. Some blood is also present in the perinephric space. A small bilateral parotid surrounds the proximal left ureter. The left ureter is not dilated. Large staghorn type calculi are present in the left renal pelvis with the largest measuring 2.1 cm there is left-sided pelvocaliectasis and multiple intrarenal nonobstructing calculi present. BLADDER: Unremarkable. GASTROINTESTINAL TRACT: The small and large bowel are unremarkable. The appendix is unremarkable. ABDOMINAL WALL: No significant hernia is appreciated. LYMPH NODES: No retroperitoneal lymphadenopathy. VASCULAR: Unremarkable. PELVIC VISCERA: The uterus and adnexa are unremarkable. OSSEOUS STRUCTURES: Mild degenerative changes are present in the lower thoracic spine. No bony destructive lesions. IMPRESSION: 1. Moderate-sized subcapsular hematoma around the left kidney with some blood in the perinephric space. 2. Large calculi in the left renal pelvis with left-sided pelvocaliectasis and multiple left-sided intrarenal nonobstructing calculi. 3. Other incidental findings as described above. Assessment & Plan Assessment & Plan (1) Perinephric abscess: Code(s): N15.1 - Renal and perinephric abscess Category: Medical (2) Staghorn calculus: Code(s): N20.0 - Calculus of kidney Category: Medical (3) Pyelonephritis: Code(s): N12 - Tubulo-interstitial nephritis, not specified as acute or chronic Category: Medical (4) Hematoma of kidney: Code(s): S37.019A - Minor contusion of unspecified kidney, initial encounter Category: Medical Qualifiers: Encounter type: subsequent encounter Laterality: left Qualified Code(s): S37.012D - Minor contusion of left kidney, subsequent encounter Plan I have reviewed Lasix renal scan which notes good function bilaterally. I have discussed changing the left ureteral stent. Before removing the CHARLENE drain would like to get a CT scan and if consideration for Interventional to inject the CHARLENE at time removal. Gabriela is stable to return to work on 06/27/2024. Orders: Orders AMB Urinalysis Automated Today Z13.9 - Encounter for screening, unspecified IR Drain Retro Peritoneum Today N15.1 - Renal and perinephric abscess CT abdomen pelvis wo/w IV con Today N15.1 - Renal and perinephric abscess, N20.0 - Calculus of kidney Referrals Interventional Radiology Referral N15.1 - Renal and perinephric abscess Patient Instructions: The patient had an opportunity to ask questions regarding treatment plan. The patient expressed understanding and agreement with the above treatment plan. The patient is aware they should contact our office by phone for worsening of their current condition or the appearance of new symptoms. Compliance is encouraged with any medications and followup testing that is ordered. It is a privilege to be allowed the opportunity to participate in the urologic care of your patient. If you have any questions or concerns regarding treatment for the above conditions please do not hesitate to contact me. The office telephone contact is [phone]. This note is constructed in part using voice recognition software. 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
== END 2024-06-20 13:36 | disposition home or self-care (01) ==
PROVIDERS: PCP Internal Medicine; Visit Provider Urology
DX: N15.1 Renal and perinephric abscess (principal); N20.0 Calculus of kidney; N12 Tubulo-interstitial nephritis, not specified as acute or chronic; S37.012D Minor contusion of left kidney, subsequent encounter; Z13.9 Encounter for screening, unspecified
CPT/HCPCS: 99214

== ENCOUNTER 2024-06-21 09:38 | Day surgery (SDC) | payer OTHER, SELFPAY ==
--- NOTE | ~2024-06-21 | XR_ITS ---
EXAMINATION: XR ABDOMEN KUB CLINICAL INDICATION: Preop left ureteral stent exchange. COMPARISON: June 10, 2024 CT abdomen and pelvis. TECHNIQUE: 3 views AP of the abdomen. FINDINGS: Nonobstructive bowel gas pattern. Moderate amount of stool in the colon. Visualization of the bilateral kidneys is limited due to overlying bowel. Degenerative changes in the lumbar spine. Left ureteral stent overlying the left kidney proximally and pelvis distally. An 8 mm radiodensity, possibly a calculus, is seen adjacent to the stent at the [id number] pole of the left kidney. A pigtail catheter overlies the lateral aspect of the upper left abdomen. XR/XR KUB IMPRESSION: Left ureteral stent overlying the left kidney proximally and pelvis distally. An 8 mm radiodensity, possibly a calculus, is seen adjacent to the stent at the [id number]-um-[id number] pole of the left kidney.
[2024-06-21 12:26] VITALS: BP 157/93; PULSE 100; RESP 18; TEMP 36.9; O2SAT 97; BMI 43.8
[2024-06-21 12:39] LABS: Glucose, Whole Blood 238 mg/dL (60-115)
--- NOTE | 2024-06-21 12:45 | PC.NURSE ---
may 25 insertion of nephro tube
--- NOTE | 2024-06-21 12:54 | MHC.SHP ---
Pre-Procedural Eval Section A - 24 Hr Update-Section A only Date of Service: 06/21/24 The patient is an INPATIENT: No The patient has been examined within 24 hours of the surgical procedure. The History & Physical has been completed within 30 days and I have reviewed it.: Yes Section B - Complete if H&P > 30 days Chief Complaint: Calculus of kidney, perinephric hematoma, abscess Allergies: Allergies Allergy/AdvReac Type Severity Reaction Status Date / Time sulfamethoxazole Allergy Mild Hives Verified 06/20/24 13:07 [From Bactrim] trimethoprim [From Bactrim] Allergy Unknown Anaphylaxis Verified 06/20/24 13:07 FISH Allergy Unknown Anaphylaxis Uncoded 06/20/24 13:07 Plan Diagnosis/Plan: Unchanged I have reviewed the history and physical and performed a pertinent physical examination on my patient. No changes have occurred unless specified. Left ureteral stent exchange. Time Spent With Patient Time: Total time managing care of this patient today ____ minutes.
--- NOTE | 2024-06-21 12:58 | PC.NURSE ---
poc 238 anesthesia aware
[2024-06-21] MEDS: Lactated Ringers 1,000 ML 50 ML IVCONT (13:08)
--- NOTE | 2024-06-21 13:24 | P.CONAN_ITS ---
[facility] Active Problems Active Problems: All Active Problems Perinephric abscess (Acute) Uric acid kidney stone (Acute) Septic shock due to urinary tract infection (Acute) Hyperglycemia (Acute) EDUARDO (acute kidney injury) (Acute) Pyelonephritis (Acute) Complex renal cyst (Acute) Kidney stone on left side (Acute) Past Medical History Medical History Hematoma of kidney Perinephric hematoma Asthma Benign paroxysmal positional vertigo Obesity Cataract CKD (chronic kidney disease) Depression HLD (hyperlipidemia) Diabetes HTN (hypertension) Sleep apnea History of kidney stones History of in vitro fertilization Family History Family History Father Cancer Mother Epilepsia Dementia Brother Drug abuse Bipolar 1 disorder Son No problems noted. Family history of problems with anesthesia: No Surgical History Surgical History H/O breast biopsy History of ureteroscopy Hx of ectopic History of open heart surgery History of Problems with Anesthesia: No Social History Social History Household Members: Spouse and Children Housing: House Do you presently have visiting nurse or other home services: No Alcohol intake: never Patient Tobacco Use Status: Never used Tobacco Are you DNR?: No Advance Directives: No Advance Directives Information Provided: Yes Advance Directives Date on File: 04/12/24 Nutrition Risks: No Nutritional Risk service: No Meds Allergies Allergy/AdvReac Type Severity Reaction Status Date / Time sulfamethoxazole Allergy Mild Hives Verified 06/20/24 13:07 [From Bactrim] trimethoprim [From Bactrim] Allergy Unknown Anaphylaxis Verified 06/20/24 13:07 FISH Allergy Unknown Anaphylaxis Uncoded 06/20/24 13:07 Active Medications: Current Medications Lactated Ringer's (Lr) 1,000 mls @ 50 mls/hr IVCONT .Q20H NUBIA Last Admin: 06/21/24 13:08 Dose: 50 mls/hr Home Medications ?Medication ?Instructions ?Recorded ?Confirmed ?Last Taken ?Type albuterol sulfate 90 mcg/actuation 2 puff inhalation Q6H PRN 09/17/23 06/20/24 Unknown History aerosol inhaler (Ventolin HFA) Shortness Of Breath Or Wheezing citalopram 40 mg tablet 40 mg PO DAILY 09/17/23 06/20/24 04/05/24 History lisinopril 20 mg tablet 20 mg PO DAILY 09/17/23 06/20/24 04/05/24 History meclizine 25 mg tablet 25 mg PO DAILY PRN Vertigo 09/17/23 06/20/24 04/05/24 History simvastatin 40 mg tablet 40 mg PO BEDTIME 09/17/23 06/20/24 04/05/24 History tirzepatide 7.5 mg/0.5 mL 7.5 mg subcut WE@0900 03/02/24 06/20/24 05/16/24 History subcutaneous pen injector (Edison) allopurinol 100 mg tablet 100 mg PO DAILY 05/24/24 06/20/24 Unknown History budesonide-formoterol HFA 160 2 puff inhalation BID 05/24/24 06/20/24 Unknown History mcg-4.5 mcg/actuation aerosol inhaler (Symbicort) ferrous sulfate 324 mg (65 mg 324 mg PO BID 05/24/24 06/20/24 Unknown History iron) tablet,delayed release glipizide 5 mg tablet, extended 5 mg PO DAILY 05/24/24 06/20/24 Unknown History release 24 hr montelukast 10 mg tablet 10 mg PO BEDTIME 05/24/24 06/20/24 Unknown History norethindrone acetate 5 mg tablet 5 mg PO DAILY 05/24/24 06/20/24 Unknown History ondansetron 4 mg disintegrating 4 mg PO Q8H PRN nausea/vomiting 05/24/24 06/20/24 Unknown History tablet Exam Height,Weight and Vital Signs: Height 5 ft 5 in Weight 119.295 kg Last Vital Signs Temp 98.5 F 06/21/24 12:26 Pulse 100 06/21/24 12:26 Resp 18 06/21/24 12:26 BP 157/93 H 06/21/24 12:26 Pulse Ox 97 06/21/24 12:26 O2 Del Method Room Air 06/21/24 12:26 Pertinent Lab Results Pertinent Lab Results: Laboratory Tests 06/21/24 12:34 POC Glucose 238 H Airway Mallampati Class: III (full neck) TM Dist: >3cm Neck ROM: Limited Loose/Missing/Broken Teeth: Yes and Lower Heart: RRR Lungs: CTA Assessment and Plan Assessment Anesthesia Assessment: Anesthesia Plan Discussed and Chart Reviewed Final Anesthetic Review Family History of Problems with Anesthesia: No History of Problems with Anesthesia: No NPO: Yes ASA Class: III Final Preanesthetic Review: Meds/Allgs Chart Reviewed, Consent Obtained/Reviewed and Anes Risks/Benef Reviewed Patient Risk: Intermediate Procedure Risk: Low Anesthetic Plan Anesthetic Plan: GA Disposition: Standard PACU
[2024-06-21 15:15] VITALS: BP 123/87; PULSE 94; RESP 18; TEMP 36.2; O2SAT 100
[2024-06-21 15:30] VITALS: BP 136/90; PULSE 93; RESP 16; TEMP 36.1; O2SAT 97
--- NOTE | 2024-06-21 15:40 | W.PM.OPN ---
Operative Note Operative Note Date of Service: 06/21/24 Narrative: PreOperative Diagnosis:??left renal calculus, s/p ureteral stent, perinephric hematoma/abscess, s/p drain Post Operative Diagnosis:?? ?left renal calculus, s/p ureteral stent, perinephric hematoma/abscess, s/p drain Procedure: - cystoscopy, - left stent removal Surgeon:?Dr Justo Rodríguez Anesthesia:? MAC Procedure: After informed consent was verified the patient was brought to the operating placed on the OR table in supine position.? General Anesthesia was administered per protocol.? The patient was placed in lithotomy position, prepped and draped in the usual sterile fashion.? Safety pause time-out and side of surgery confirmed.? Antibiotics confirmed. A 22 [place]iv[place] cystoscope was inserted transurethrally, The bladder was visualized.? Both ureteric orifices were in normal position. Mild edema at the left ureteral orifice which is expected, distal end of ureteral stent visualized. The grasping forceps were used and the stent was removed without difficulty. The bladder was emptied.? The rigid cystoscope was removed. ? The patient tolerated the procedure well and was brought to the recovery room in stable condition. Complications: None
== END 2024-06-21 15:44 | disposition home or self-care (01) ==
PROVIDERS: PCP Internal Medicine; Visit Provider Urology
PROC: (CPT 52310; principal; 2024-06-21 12:40)
DX: N20.0 Calculus of kidney (principal); N28.89 Other specified disorders of kidney and ureter; N15.1 Renal and perinephric abscess; S37.012A Minor contusion of left kidney, initial encounter; J45.909 Unspecified asthma, uncomplicated; E11.22 Type 2 diabetes mellitus with diabetic chronic kidney disease; I12.9 Hypertensive chronic kidney disease with stage 1 through stage 4 chronic kidney disease, or unspecified chronic kidney disease; N18.9 Chronic kidney disease, unspecified; E66.01 Morbid (severe) obesity due to excess calories; E78.5 Hyperlipidemia, unspecified; Z79.51 Long term (current) use of inhaled steroids; Z79.84 Long term (current) use of oral hypoglycemic drugs; Z79.899 Other long term (current) drug therapy; Z88.2 Allergy status to sulfonamides; Z88.1 Allergy status to other antibiotic agents; Z98.890 Other specified postprocedural states; X58.XXXA Exposure to other specified factors, initial encounter; Y93.9 Activity, unspecified; Y92.9 Unspecified place or not applicable; Y99.8 Other external cause status
CPT/HCPCS: 52310; 74018; 82947; C1769; J0690; J2250; J2704; J3010; Q9967

== ENCOUNTER → 2024-06-21 09:38 | Outpatient (BNV) | payer OTHER, SELFPAY | PROVIDERS: PCP Internal Medicine; Visit Provider Urology | DX: N20.0 Calculus of kidney (principal); Z96.0 Presence of urogenital implants | CPT/HCPCS: 52310 ==

== ENCOUNTER 2024-06-24 12:09 | Outpatient (REF) | payer OTHER, SELFPAY ==
--- NOTE | ~2024-06-24 | FL_ITS ---
EXAMINATION: FLUOROSCOPIC ABSCESS SINOGRAM CLINICAL INFORMATION: Left perinephric abscess status post previous drainage. Concern for fistula to the left colon on prior CT. COMPARISON: CT scan May 2024 TECHNIQUE: 100 mL of 75% Omnipaque 300 /25% saline mixture was injected through the J drain and multiple spot images and cine loops were recorded. FINDINGS: A percutaneous drainage catheter is present in the left abdomen. After injection of the contrast mixture the left perinephric abscess cavity fills. 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 This procedure was performed by Darwin Garrido PA-C, and supervised by Dr. Looney
== END 2024-06-24 12:10 | disposition home or self-care (01) ==
LOC: HO.XRAY 12:09
PROVIDERS: PCP Internal Medicine; Visit Provider Urology
DX: N15.1 Renal and perinephric abscess (principal)
CPT/HCPCS: 76080

== ENCOUNTER → 2024-06-24 12:12 | Outpatient (BNV) | payer OTHER, SELFPAY | PROVIDERS: PCP Internal Medicine; Visit Provider Physician Assistant Surgical | DX: N15.1 Renal and perinephric abscess (principal) | CPT/HCPCS: 76080 ==

== ENCOUNTER 2024-06-25 12:51 | Inpatient (IN) | payer OTHER, SELFPAY ==
--- NOTE | ~2024-06-25 | CT_ITS ---
History: Patient with complicated lithotripsy and consequent left perinephric abscess. She has an existing abscess drain in a left perinephric collection, but has developed a new abscess adjacent to the spleen. Additionally, the existing drain has pulled slightly lateral to the collection. She presents for drain repositioning of the left perinephric drain and placement of a new abscess drain in the perisplenic collection. Procedures performed: 1. CT-guided exchange and repositioning of a left perinephric abscess drainage catheter 2. CT-guided placement of a perisplenic abscess drainage catheter Physician: Anesthesia: IV moderate sedation with intravenous fentanyl and versed was administered under my direct supervision with continuous physiologic monitoring for a total of 45 minutes. 8 mL of 1% lidocaine was administered at the existing drain site and 8 mL of 1% lidocaine was administered subcutaneously at the new drainage catheter site for local anesthesia. Specimen: 10 mL of pus from the perisplenic abscess Drain: 1.) 10 Brazilian perinephric locking pigtail abscess drainage catheter 2.) 10 Brazilian perisplenic locking pigtail abscess catheter Estimated blood loss: Minimal Complications: None Procedure in detail: The patient was positioned right lateral decubitus on the CT examination table. Preliminary CT scan of the patient's abdomen with IV contrast demonstrated a small perisplenic abscess as well as a smaller left perinephric abscess that appears to have fistulous communication to the descending colon. The existing drainage catheter is a bit lateral of the collection. The existing perinephric drainage catheter was prepped and draped. 1%lidocaine was injected subcutaneously around the drain. We removed it over a stiff Glidewire and inserted a new 10 Brazilian locking pigtail drainage catheter under progressive CT guidance. The new drainage catheter was placed centrally within the residual left perinephric abscess and connected to CHARLENE suction. It was secured with 2-0 Surgipro and a Percufix device with an overlying sterile dressing. Attention was now directed to draining the perisplenic abscess. An appropriate site for access was marked near the original drainage catheter on the skin. The skin was prepped and draped. 1% lidocaine was injected subcutaneously at the planned access site. A small incision was made in the skin with a #11 blade. Through the incision and under progressive CT guidance, a Yueh needle catheter was advanced into the perisplenic collection. The needle was removed and through the Yueh catheter we advanced an Amplatz wire over which a 10 Brazilian locking pigtail drainage catheter was placed. An immediate return of pus was obtained and sent to laboratory for analysis. The new drainage catheter was also sutured in place with 2-0 Surgipro and secured additionally with a Percufix device. It was connected to CHARLENE suction. An overlying sterile dressing was placed. Summary: 1. Successful repositioning of a left perinephric abscess catheter. 2. Successful placement of a new perisplenic abscess catheter. A specimen was sent to the laboratory for analysis.
[2024-06-25 13:00] VITALS: BP 115/88; PULSE 96; RESP 18; TEMP 36.5; O2SAT 98; BMI 45.2
--- NOTE | 2024-06-25 13:07 | ED.GENADULT ---
HPI - General Adult General Chief complaint: General Medical Stated complaint: SEPSIS SYMPTOMS Time Seen by Provider: 06/25/24 12:55 Source: patient, RN notes reviewed and old records reviewed Mode of arrival: ambulatory History of Present Illness ED Provider: Aye Cordero PA-C HPI narrative: 53-year-old female with a past medical history of nephrolithiasis s/p stent placement, left subscapular hematoma, diabetes, obesity, HTN, asthma, HLD, left perinephric abscess s/p CT-guided aspiration on 05/25/2024 by IR with CHARLENE drain currently on Flagyl/Ceftin outpatient, presenting to ED transferred from [facility] Dx w/sepsis secondary to left-sided retroperitoneal and perinephric fluid collection. Patient presented with chills, fever, nausea, tachycardia/tachypnea. Patient was given IVF and dose of IV Rocephin in their ED prior to transfer. Denies abdominal pain, vomiting, dysuria/hematuria Related Data Home Medications ?Medication ?Instructions ?Recorded ?Confirmed albuterol sulfate 90 mcg/actuation 2 puff inhalation Q6H PRN 09/17/23 06/25/24 aerosol inhaler (Ventolin HFA) Shortness Of Breath Or Wheezing citalopram 40 mg tablet 40 mg PO DAILY 09/17/23 06/25/24 lisinopril 20 mg tablet 20 mg PO DAILY 09/17/23 06/25/24 meclizine 25 mg tablet 25 mg PO DAILY Vertigo 09/17/23 06/25/24 simvastatin 40 mg tablet 40 mg PO BEDTIME 09/17/23 06/25/24 tirzepatide 7.5 mg/0.5 mL 7.5 mg subcut WE@0900 03/02/24 06/25/24 subcutaneous pen injector (Mounjaro) budesonide-formoterol HFA 160 2 puff inhalation BID 05/24/24 06/25/24 mcg-4.5 mcg/actuation aerosol inhaler (Symbicort) montelukast 10 mg tablet 10 mg PO BEDTIME 05/24/24 06/25/24 norethindrone acetate 5 mg tablet 5 mg PO DAILY 05/24/24 06/25/24 Allergies Allergy/AdvReac Type Severity Reaction Status Date / Time sulfamethoxazole Allergy Mild Hives Verified 06/25/24 13:05 [From Bactrim] trimethoprim [From Bactrim] Allergy Unknown Anaphylaxis Verified 06/25/24 13:05 FISH Allergy Unknown Anaphylaxis Uncoded 06/25/24 13:05 Review of Systems Review of Systems: Constitutional: + Fever, +Chills ENT/Mouth: No Ear Pain, No Nasal Congestion, No sore throat, No Rhinorrhea, No Swallowing Difficulty Cardiovascular: No Chest Pain, No SOB Respiratory: No Cough, No Sputum, No Wheezing Gastrointestinal: +Nausea, No Vomiting, No Diarrhea, No Constipation, No Abdominal pain Genitourinary: No Dysuria, No Urinary Frequency, No Hematuria, No Flank Pain Musculoskeletal: No joint pain, No Myalgias, No Joint Swelling Skin: No Skin Lesions, No rash Neuro: No Weakness Yes all other systems are reviewed and are negative Constitutional: Constitutional: Reports as per [facility] Past Medical History Attestation statement: The following information was validated with the patient. Source: old records reviewed Medical History Hematoma of kidney Perinephric hematoma Asthma Benign paroxysmal positional vertigo Obesity Cataract CKD (chronic kidney disease) Depression HLD (hyperlipidemia) Diabetes HTN (hypertension) Sleep apnea History of kidney stones History of in vitro fertilization Surgical History H/O breast biopsy History of ureteroscopy Hx of ectopic History of open heart surgery Family History Family History Father Cancer Mother Epilepsia Dementia Brother Drug abuse Bipolar 1 disorder Son No problems noted. Social History Social History Household Members: Spouse and Children Housing: House Do you presently have visiting nurse or other home services: No Alcohol intake: never Patient Tobacco Use Status: Never used Tobacco Smoked in Last 30 Days: No Use of substances other than those prescribed or required for medical reasons: No Advance Directives: Yes Advance Directives on File: Yes Advance Directives Date on File: 04/12/24 Nutrition Risks: No Nutritional Risk service: No Physical Exam ED Vital Signs: Vital Signs - 24 hr 06/25/24 13:00 Temperature 97.7 F Pulse Rate 96 Respiratory Rate 18 Blood Pressure 115/88 Pulse Oximetry 98 Oxygen Delivery Method Nasal Cannula BMI result Body Mass Index 45.2 Const General: cooperative and no acute distress Nutritional Appearance: obese Orientation/consciousness: patient oriented x3 Limitations: no limitations HENMT Head: Yes normal to inspection and Yes atraumatic Ears: hearing grossly normal bilaterally General nose exam: Normal external nose present Face and sinus: Yes normal facial exam Eyes General: appearance normal, both eyes and all related structures EOM: EOMs intact bilaterally Neck Neck: Yes normal visual inspection and Yes no meningeal signs Resp Effort & Inspection: normal respiratory effort and no respiratory distress Auscultation: clear to auscultation bilaterally Cardio Rate: regular rate Heart sounds: S1 normal heart sound present and S2 normal heart sound present GI Other: CHARLENE drain appreciated to left abdomen with bloody drainage Inspection: Yes normal to inspection Palpation (GI): Soft to palpation, nontender, no guarding and not rigid General: Yes no CVA tenderness Back/Spine/Pelvis Back: no CVA tenderness Skin Rashes: no rashes Wounds: no wounds Neuro General: patient oriented x3, tone normal and no meningeal signs Cranial nerves: Yes CN's II-XII intact bilaterally Gait exam (Neuro): Normal gait present Extrem General: Yes normal to inspection Medications Administered Generic Name Dose Route Start Last Admin Trade Name Freq PRN Reason Stop Dose Admin Acetaminophen 650 mg 06/25/24 15:16 06/25/24 15:49 Acetaminophen 325 Mg Tablet PO 650 mg Q6H PRN Administration Pain, Mild (Pain Scale 1-3), fever or headache Sodium Chloride 1,000 mls @ 100 mls/hr 06/25/24 15:30 06/25/24 15:47 Ns IVCONT 100 mls/hr .Q10H NUBIA Administration Metronidazole 500 mg in 100 mls @ 100 mls/hr 06/25/24 15:45 06/25/24 15:59 Flagyl IV 100 mls/hr Q8H NUBIA Administration Sodium Chloride 3 ml 06/25/24 16:00 06/25/24 15:59 0.9 % Sodium Chloride Flush 3 Ml Syringe IVFLUSH Not Given QSHIFT NUBIA Discontinued Medications Generic Name Dose Route Start Last Admin Trade Name Freq PRN Reason Stop Dose Admin Sodium Chloride 500 mls @ 999 mls/hr 06/25/24 14:00 06/25/24 15:19 Ns IV 06/25/24 14:30 Infused .Q31M NUBIA Infusion Ondansetron HCl 4 mg 06/25/24 14:05 06/25/24 14:12 Ondansetron Hcl 4 Mg/2 Ml Vial IVPUSH 06/25/24 14:06 4 mg ONCE ONE Administration Medical Decision Making Medical Decision Making [facility] Narrative: 53-year-old female with a past medical history of nephrolithiasis s/p stent placement, left subscapular hematoma, diabetes, obesity, HTN, asthma, HLD, left perinephric abscess s/p CT-guided aspiration on 05/25/2024 by IR with CHARLENE drain currently on Flagyl/Ceftin outpatient, presenting to ED transferred from [facility] Dx w/sepsis secondary to left-sided retroperitoneal and perinephric fluid collection. On exam vital signs stable, NAD, nontoxic appearing, CHARLENE drain appreciated to left abdomen with bloody drainage. No rebound or guarding. CT abdomen/pelvis from today at [facility] showing small left perinephric fluid and air collection with the left retroperitoneal drain terminating lateral to the perinephric collection in the retroperitoneal fat. Consider positioning. Additional left retroperitoneal fluid collection more superiorly adjacent to the pancreatic tail and in the splenic hilum measuring 5 cm which may represent hematoma or abscess. Nonobstructive left lower pole renal calculi without hydro Plan: Labs, lactic/blood cultures, admission. Patient does not need additional IV antibiotics at this time. Please refer to course for remaining clinical decision making, interpretation of labs/imaging results, and discussions with consultants and/or family members. Differential Diagnosis Differential Diagnoses: The differential diagnosis associated with the presentation includes As above Admission/Observation Consideration of admission/observation: Escalation of care including admission/observation considered Consult Healthcare Provider Management of the patient was discussed with: Hospitalist and Supervisor Phosphoric Acid Lab Data [facility] Lab Attestation statement: I reviewed the patient's lab results. 06/25/24 13:39 06/25/24 13:39 Labs: Lab Results 06/25/24 06/25/24 Range/Units 13:39 14:31 WBC 11.1 H (4.8-10.8) X10*3/uL RBC 5.07 D (4.20-5.50) X10*6/uL Hgb 12.9 D (12.0-16.0) g/dl Hct 40.1 D (37.0-47.0) % MCV 79.1 L (80.0-98.0) fL MCH 25.4 L (27.0-33.0) pg MCHC 32.2 (31.0-35.0) g/dl RDW 20.1 H (11.0-16.0) % Plt Count 262 D (160-400) X10*3/uL MPV 9.3 L (9.4-12.3) fL Immature Gran % (Auto) 0.5 H (0.0-0.4) % Neut % (Auto) 84.8 H (45-73) % Lymph % (Auto) 10.2 L (20-40) % Guthrie % (Auto) 4.3 (2-11) % Eos % (Auto) 0.0 (0-4) % Baso % (Auto) 0.2 (0-2) % Lymph # (Auto) 1.1 L (1.2-4.9) X10*3/uL Guthrie # (Auto) 0.5 (0.1-1.2) X10*3/uL Eos # (Auto) 0.0 (0.0-0.4) X10*3/uL Baso # (Auto) 0.0 (0.0-0.2) X10*3/uL Abs Immat Gran (auto) 0.06 H (0.00-0.03) X10*3/uL Absolute Neuts (auto) 9.4 H (2.0-8.3) x10*3/uL Absolute Nucleated RBC 0.000 (0.0-0.012) X10*3/uL Nucleated RBC % (auto) 0.0 (0.0-0.2) /100WBC PT 12.9 (11.1-13.3) SEC INR 1.1 (0.9-1.1) Sodium 132 L (135-145) mmol/L Potassium 3.8 (3.3-5.1) mmol/L Chloride 97 (96-108) mmol/L Carbon Dioxide 22 (22-29) mmol/L Anion Gap 17 (12-20) BUN 13 (9-16) mg/dL Creatinine 1.38 (0.5-1.4) mg/dL Estim Creat Clear Calc 62.1 Estimated GFR 40 Random Glucose 326 H (60-115) mg/dL Lactic Acid 3.3 H* (0.5-2.0) mmol/L Calcium 9.7 D (8.4-10.2) mg/dL Magnesium 1.5 L (1.6-2.6) mg/dL Total Bilirubin 0.6 (0.0-1.0) mg/dL Direct Bilirubin 0.2 (0.0-0.5) mg/dL AST 15 (5-31) U/L ALT 18 (0-31) U/L Alkaline Phosphatase 102 (39-117) U/L B-Natriuretic Peptide 47 (<100) pg/mL Total Protein 8.0 (6.5-8.0) g/dL Albumin 3.6 (3.5-5.0) g/dL Lipase 13 (8-78) U/L Urine Color Yellow Urine Appearance Clear Urine pH 5.5 (5.0-9.0) Ur Specific [place] >= 1.030 H (1.005-1.025) Urine Protein 100 (2+) H (Neg-Trace) mg/dL Urine Glucose (UA) >=1000 H (Negative) mg/dL Urine Ketones Negative (Negative) mg/dL Urine Blood Small (1+) H (Negative) Urine Nitrite Negative (Negative) Ur Leukocyte Esterase Negative (Negative) Urine RBC 6-10 H (0-2) /HPF Urine WBC 0-5 (0-5) /HPF Ur Squamous Epith Cells 3-5 (0-2) /HPF Urine Bacteria None Seen (None Seen) Hyaline Casts 0-2 (0-2) /LPF Independent Interpretation I performed an independent interpretation of an: CT Scan Radiology Impression Discussion of test interpretation with radiology: I have reviewed the radiologist's reading. Independent Historian Clinical information obtained from an independent historian. History obtained from or confirmed by: EMS External Record Review External record reviewed: Inpatient record, Office record, Outpatient record, Prior outpatient labs, Prior outpatient radiology, Primary care record and Outside ED record Tests considered The following testing was considered but not selected: As above Prescription Management I considered prescription management with: Pain Medication and Antibiotic Chronic Conditions Patient?s care impacted by: Other (Obesity) Discharge Plan Discharge Clinical Impression: Retroperitoneal fluid collection, Perinephric fluid collection Patient Disposition: Admitted As Inpatient
[2024-06-25 13:43] LABS: MANUAL DIFF FLAG NO
[2024-06-25 13:44] LABS: Basophils Percent Auto 0.2 % (0-2); Hematocrit 40.1 % (37.0-47.0); Hemoglobin 12.9 g/dl (12.0-16.0); Imm Gran Abs Auto 0.06 X10*3/uL (0.00-0.03); Imm Gran Pct Auto 0.5 % (0.0-0.4); Lymphocytes Absolute Auto 1.1 X10*3/uL (1.2-4.9); Lymphocytes Percent Auto 10.2 % (20-40); Mean Corpuscular HGB Conc 32.2 g/dl (31.0-35.0); Mean Corpuscular Hemoglobin 25.4 pg (27.0-33.0); Mean Corpuscular Volume 79.1 fL (80.0-98.0); Mean Platelet Volume 9.3 fL (9.4-12.3); Monocytes Absolute Auto 0.5 X10*3/uL (0.1-1.2); Monocytes Percent Auto 4.3 % (2-11); Neutrophils Absolute Auto 9.4 x10*3/uL (2.0-8.3); Neutrophils Percent Auto 84.8 % (45-73); Platelet Count 262 X10*3/uL (160-400); Red Blood Count 5.07 X10*6/uL (4.20-5.50); Red Cell Distribution Width 20.1 % (11.0-16.0); White Blood Count 11.1 X10*3/uL (4.8-10.8)
[2024-06-25 13:59] LABS: Lactic Acid 3.3 mmol/L (0.5-2.0)
[2024-06-25 14:03] LABS: Alanine Aminotransferase 18 U/L (0-31); Albumin Level 3.6 g/dL (3.5-5.0); Alkaline Phosphatase 102 U/L (39-117); Anion Gap 17 (12-20); Aspartate Amino Transferase 15 U/L (5-31); Bilirubin Direct 0.2 mg/dL (0.0-0.5); Bilirubin Total 0.6 mg/dL (0.0-1.0); Blood Urea Nitrogen 13 mg/dL (9-16); Calcium 9.7 mg/dL (8.4-10.2); Carbon Dioxide 22 mmol/L (22-29); Chloride 97 mmol/L (96-108); Creatinine Clr Calc Pharmacy 62.1; Estimated Glomerular Filt Rate 40; Glucose Random 326 mg/dL (60-115); Lipase 13 U/L (8-78); Magnesium 1.5 mg/dL (1.6-2.6); Potassium 3.8 mmol/L (3.3-5.1); Sodium 132 mmol/L (135-145)
[2024-06-25 14:08] LABS: B Type Natriuretic Peptide 47 pg/mL (<100)
[2024-06-25] MEDS: ondansetron HCL 4 MG/2 ML VIAL IVPUSH (14:12)
[2024-06-25] MEDS: 0.9 % Sodium Chloride 500 ML 999 ML IV (14:12)
[2024-06-25 14:22] LABS: INTERNATIONAL NORM RATIO 1.1 (0.9-1.1); Prothrombin Time 12.9 SEC (11.1-13.3)
[2024-06-25 14:43] LABS: Appearance Urine Clear; Color Urine Yellow; Glucose Urine UA >=1000 mg/dL (Negative); Leukocyte Esterase Urine Negative (Negative); Nitrite Urine Negative (Negative); PH 5.5 (5.0-9.0); UMIC TRIGGER UACC YES; Urine Blood Small (1+) (Negative); Urine Ketones Negative (Negative); Urine Protein 100 (2+) mg/dL (Neg-Trace)
[2024-06-25 14:49] LABS: Bacteria Urine None Seen (None Seen); Hyaline Casts Urine 0-2 /LPF (0-2); Specific Gravity - Urine >= 1.030 (1.005-1.025); WBC Urine 0-5 /HPF (0-5)
--- NOTE | 2024-06-25 15:14 | PHA.MEDREC ---
Addendum entered by Soledad Kwong RPh 06/25/24 15:35: MED REC REVIEWED BY [facility] Original Note: Pharmacy Consult ? Medication Reconciliation Pharmacy has completed the medication reconciliation. Spoke with patient to confirm medications. She had a picture of the medications she is taking on her phone. She is no longer taking metformin, potassium, allopurinol, iron, or glipizide. She finished her antibiotics from last discharge. She has not had her Mounjaro for a few weeks because her pharmacy has not been able to order it. She last took her medications about a week ago.
--- NOTE | 2024-06-25 15:34 | P.HPHOSP_ITS ---
History of Present Illness Date of Service: 06/25/24 Attending physician on admission: [facility] Chief Complaint: fever, malaise, chills 53-year-old female with pertinent history of nephrolithiasis, left subscapsular hematoma, bat-rejfitj-jqehjdrjt type 2 diabetes mellitus, obesity, hypertension, CAD, asthma not on home oxygen, mixed hyperlipidemia presented to the ED from [facility] ED due to nausea, vomiting, fevers of 101, chills, and general malaise that started this morning. EMS was called and transported her to [facility]. She [place] [facility] [place] due to perinephric abscess with placement of drain by IR Radiology and was also evaluated by General surgery with question of diverticular fistula. She was discharged with CHARLENE drain and completed course of Ceftin and Flagyl. She was on seen by Dr. Mckeon in the office on 06/20 and underwent cystoscopy 06/21 to change the left ureteral stent. While at [facility], patient had a slightly elevated temperature of 100 degrees, was tachycardic and tachypneic. Lactic acid was normal at [facility]. Renal function noted to be baseline, electrolyte levels normal. Glucose elevated at 392. Urinalysis with moderate blood, otherwise unremarkable. EKG shows sinus tachycardia, rate 114 with T-wave inversions in V1 through V4, unchanged from prior EKGs. Chest x-ray with possible vascular congestion, otherwise unremarkable. CT abdomen pelvis shows small left perinephric fluid and air collection with left retroperitoneal drain terminating lateral to the perinephric collection in the retroperitoneal fat consider repositioning. There is also additional left retroperitoneal fluid collection more superiorly adjacent to the pancreatic tail and in the left splenic hilum measuring 5 cm possibly representing hematoma versus abscess. As well as a nonobstructive left lower pole renal calculi without hydronephrosis. CT chest without any acute findings. She was given a dose of IV ceftriaxone. Given patient meeting sepsis criteria, case was discussed with Urology and she was recommended for transfer to [facility] for further evaluation and management of sepsis related to perinephric abscess and will be admitted for further management of such. While patient is mildly tachycardic but otherwise hemodynamically stable. WBC 11.1. Renal function baseline, electrolyte levels normal except for sodium of 132 with glucose of 326. Initial lactic acid 3.3, repeat pending. Urinalysis with 1+ blood, elevated specific gravity, 2+ protein, significant late elevated glucose, but not indicative of infection. In our ED, has received Tylenol, IV NS, and ondansetron. Review of Systems 2 Review of Systems: General: +fevers, +malaise. No unintentional weight loss HEENT: No blurred vision, diplopia. No sore throat, nasal congestion, rhinorrhea, sinus pain, ear pain Cardiovascular: No chest pain, palpitations, or leg edema Respiratory: No shortness of breath, wheezing, cough GI: +n/v. No abdominal pain, diarrhea, constipation, melena, hematochezia : No dysuria, hematuria, increased urinary frequency, decreased urinary output MSK: No myalgia, back pain Neuro: No headaches, weakness, paresthesias Skin: No rashes or lesions [facility] Medical History Hematoma of kidney Perinephric hematoma Asthma Benign paroxysmal positional vertigo Obesity Cataract CKD (chronic kidney disease) Depression HLD (hyperlipidemia) Diabetes HTN (hypertension) Sleep apnea History of kidney stones History of in vitro fertilization Family History Father Cancer Mother Epilepsia Dementia Brother Drug abuse Bipolar 1 disorder Son No problems noted. Surgical History H/O breast biopsy History of ureteroscopy Hx of ectopic History of open heart surgery Social History Household Members: Spouse and Children Housing: House Do you presently have visiting nurse or other home services: No Alcohol intake: never Patient Tobacco Use Status: Never used Tobacco Smoked in Last 30 Days: No Use of substances other than those prescribed or required for medical reasons: No Advance Directives: Yes Advance Directives on File: Yes Advance Directives Date on File: 04/12/24 Nutrition Risks: No Nutritional Risk service: No Meds Allergies Allergy/AdvReac Type Severity Reaction Status Date / Time sulfamethoxazole Allergy Mild Hives Verified 06/25/24 13:05 [From Bactrim] trimethoprim [From Bactrim] Allergy Unknown Anaphylaxis Verified 06/25/24 13:05 FISH Allergy Unknown Anaphylaxis Uncoded 06/25/24 13:05 Active Medications: Current Medications Acetaminophen (Acetaminophen 325 Mg Tablet) 650 mg PO Q6H PRN PRN Reason: Pain, Mild (Pain Scale 1-3), fever or headache Calcium Carbonate (Calcium Carbonate 750 Mg Tab.Chew) 750 mg PO Q4H PRN PRN Reason: Heartburn Heparin Sodium (Porcine) (Heparin Sodium,Porcine 5,000 Unit/Ml Vial) 5,000 unit SUBCUT Q12H [facility] Sodium Chloride (Ns) 1,000 mls @ 100 mls/hr IVCONT .Q10H N[facility] Ceftriaxone Sodium 1 gm/ (Sodium Chloride) 50 mls @ 100 mls/hr IV Q24H [facility] Metronidazole (Flagyl) 500 mg in 100 mls @ 100 mls/hr IV Q8H [facility] Magnesium Hydroxide (Milk Of Magnesia 30 Ml Oral.Susp) 30 ml PO DAILY PRN PRN Reason: Constipation Melatonin (Melatonin 3 Mg Tablet) 6 mg PO BEDTIME PRN PRN Reason: Insomnia Ondansetron HCl (Ondansetron Hcl 4 Mg/2 Ml Vial) 4 mg IVPUSH Q8H PRN PRN Reason: Nausea and Vomiting Sodium Chloride (0.9 % Sodium Chloride Flush 3 Ml Syringe) 3 ml IVFLUSH QSHIFT [facility] Home Medications ?Medication ?Instructions ?Recorded ?Confirmed ?Last Taken ?Type albuterol sulfate 90 mcg/actuation 2 puff inhalation Q6H PRN 09/17/23 06/25/24 Unknown History aerosol inhaler (Ventolin HFA) Shortness Of Breath Or Wheezing citalopram 40 mg tablet 40 mg PO DAILY 09/17/23 06/25/24 04/05/24 History lisinopril 20 mg tablet 20 mg PO DAILY 09/17/23 06/25/24 04/05/24 History meclizine 25 mg tablet 25 mg PO DAILY Vertigo 09/17/23 06/25/24 04/05/24 History simvastatin 40 mg tablet 40 mg PO BEDTIME 09/17/23 06/25/24 04/05/24 History tirzepatide 7.5 mg/0.5 mL 7.5 mg subcut WE@0900 03/02/24 06/25/24 05/16/24 History subcutaneous pen injector (Edison) budesonide-formoterol HFA 160 2 puff inhalation BID 05/24/24 06/25/24 Unknown History mcg-4.5 mcg/actuation aerosol inhaler (Symbicort) montelukast 10 mg tablet 10 mg PO BEDTIME 05/24/24 06/25/24 Unknown History norethindrone acetate 5 mg tablet 5 mg PO DAILY 05/24/24 06/25/24 Unknown History Physical Exam 2 Vital Signs and Narrative: Vital Signs: Last Vital Signs Temp 97.7 F 06/25/24 13:00 Pulse 96 06/25/24 13:00 Resp 18 06/25/24 13:00 BP 115/88 06/25/24 13:00 Pulse Ox 98 06/25/24 13:00 O2 Del Method Nasal Cannula 06/25/24 13:00 Oxygen Flow Rate 2 06/25/24 13:00 BMI result Body Mass Index 45.2 Constitutional - Awake and unwell appearing, No apparent distress Eyes - PERRLA, EOMI Cardiovascular - S1S2, RRR, No edema Respiratory - Normal lung expansion, Normal respiratory effort, No respiratory distress, CTA bilaterally Gastrointestinal - NT / ND; +BS; No rebound or guarding - No CVA tenderness Extremities - no calf tenderness bilaterally, no swelling Skin - Warm/Dry Neurological - oriented x3 Psychological - Appropriate affect Results Labs 06/25/24 13:39 06/25/24 13:39 Labs: Laboratory Results - last 24 hr 06/25/24 06/25/24 13:39 14:31 MCV 79.1 L MCH 25.4 L MCHC 32.2 RDW 20.1 H Plt Count 262 D MPV 9.3 L Immature Gran % (Auto) 0.5 H Neut % (Auto) 84.8 H Lymph % (Auto) 10.2 L [place] % (Auto) 4.3 Eos % (Auto) 0.0 Baso % (Auto) 0.2 Lymph # (Auto) 1.1 L [place] # (Auto) 0.5 Eos # (Auto) 0.0 Baso # (Auto) 0.0 Abs Immat Gran (auto) 0.06 H Absolute Neuts (auto) 9.4 H Absolute Nucleated RBC 0.000 Nucleated RBC % (auto) 0.0 PT 12.9 INR 1.1 Anion Gap 17 Estim Creat Clear Calc 62.1 Estimated GFR 40 Random Glucose 326 H Lactic Acid 3.3 H* Calcium 9.7 D Magnesium 1.5 L Total Bilirubin 0.6 Direct Bilirubin 0.2 AST 15 ALT 18 Alkaline Phosphatase 102 B-Natriuretic Peptide 47 Total Protein 8.0 Albumin 3.6 Lipase 13 Urine Color Yellow Urine Appearance Clear Urine pH 5.5 Ur Specific [place] >= 1.030 H Urine Protein 100 (2+) H Urine Glucose (UA) >=1000 H Urine Ketones Negative Urine Blood Small (1+) H Urine Nitrite Negative Ur Leukocyte Esterase Negative Urine RBC 6-10 H Urine WBC 0-5 Ur Squamous Epith Cells 3-5 Urine Bacteria None Seen Hyaline Casts 0-2 Assessment and Plan (1) Perinephric fluid collection: Status: Acute (2) Retroperitoneal fluid collection: Status: Acute Plan .53-year-old female with pertinent history of nephrolithiasis, left subscapsular hematoma, [id number] type 2 diabetes mellitus, obesity, hypertension, CAD, asthma not on home oxygen, mixed hyperlipidemia admitted for further management of left perinephric abscess with severe sepsis #Acute recurrent left perinephric abscess wtih severe sepsis -Pt met SIRS criteria while at [facility] with WBC 12.2, tachycardia 103, tachypnea 23 at 0910 this morning with lactic acidosis 3.3 at 1339, repeat pending. Continues with tachypnea and tachycardia in the ED. No other end organ damage. No septic shock at time of admission -CT abdomen pelvis shows small left perinephric fluid and air collection with left retroperitoneal drain terminating lateral to the perinephric collection in the retroperitoneal fat consider repositioning. There is also additional left retroperitoneal fluid collection more superiorly adjacent to the pancreatic tail and in the left splenic hilum measuring 5 cm possibly representing hematoma versus abscess. As well as a nonobstructive left lower pole renal calculi without hydronephrosis. -Admitted with dc 06/03 for same s/p IR CHARLENE drain placement, remains in place. Culture grew E coli, Klebsiella, strep viridans sensitive to ceftriaxone. Anaerobic culture grew Bacteroides -IV ctx and flagyl (initiated 06/25) -urology consult. Per Urology, keep patient NPO -follow CBC, cultures # acute hyponatremia-suspect pseudo hyponatremia in setting of hyperglycemia -treat hyperglycemia, follow lytes # acute hypomagnesemia -repleted, follow # [id number] type 2 diabetes -POC glucose, Admelog sliding scale. Advance to diabetic diet # hypertension -continue lisinopril # class 3 obesity -weight loss efforts DVT prophylaxis-heparin Full code Patient will require inpatient stay at least 2 midnights for management of left perinephric abscess resulting in severe sepsis which will require IV antibiotics, IV fluid resuscitation, expert consultation with probable surgical intervention and close monitoring of hemodynamics to monitor for decompensation Quality Stroke Does the patient have a stroke diagnosis?: No VTE Prior VTE?: No VTE Risk Level:: Medical - moderate - high VTE Device Contraindication: Treatment Not Indicated VTE Drug Contraindication: N/A - Med Ordered
[2024-06-25 15:42] LABS: Reflex Lactate? Lactic Acid Added
[2024-06-25] MEDS: 0.9 % Sodium Chloride 1,000 ML 100 ML IVCONT (15:47)
[2024-06-25] MEDS: Acetaminophen 325 MG TABLET 650 MG PO (15:49)
[2024-06-25 15:50] VITALS: O2SAT 88
[2024-06-25 15:51] VITALS: BP 131/72; PULSE 102; RESP 17; TEMP 37.8; O2SAT 96
[2024-06-25] MEDS: metroNIDAZOLE/NS 500 MG/100 ML PIGGYBACK 100 MG IV (15:59)
[2024-06-25 16:01] VITALS: BP 121/73; PULSE 99; RESP 26; TEMP 37.7; O2SAT 97
[2024-06-25 16:11] LABS: ~Lactic Acid-LAB USE ONLY 1.6 mmol/L (0.5-2.0)
[2024-06-25] MEDS: Magnesium Sulfate/H2O 2 GM/50 ML PIGGYBACK IV (17:05)
[2024-06-25 17:06] VITALS: BP 131/70; PULSE 90; RESP 24; TEMP 36.7; O2SAT 96
[2024-06-25 17:32] LABS: Glucose, Whole Blood 267 mg/dL (60-115)
[2024-06-25] MEDS: Insulin Lispro 100 UNIT/ML 3 ML VIAL SUBCUT ×2 (17:53→20:58)
--- NOTE | 2024-06-25 19:11 | PC.NURSE ---
report received from Suyapa DELGADO, assume care of pt at this time
--- NOTE | 2024-06-25 20:15 | MHC.EDTECH ---
Pt taken off bed carlin and cleaned. Pts gown changed due to being saturated in sweat. Pt repositioned in bed, call berry within reach.
[2024-06-25] MEDS: Heparin Sodium,Porcine 5,000 UNIT/ML VIAL 5000 UNIT SUBCUT (20:59)
[2024-06-25 22:05] VITALS: BP 119/61; PULSE 84; RESP 20; TEMP 36.9; O2SAT 98
[2024-06-26] MEDS: metroNIDAZOLE/NS 500 MG/100 ML PIGGYBACK 100 MG IV ×3 (00:59→17:04)
[2024-06-26] MEDS: 0.9 % Sodium Chloride 1,000 ML 100 ML IVCONT ×3 (01:00→22:27)
[2024-06-26 02:00] VITALS: BP 127/58; PULSE 84; RESP 18; TEMP 36.8; O2SAT 98
[2024-06-26 03:47] VITALS: BP 138/71; PULSE 90; RESP 20; TEMP 36.8; O2SAT 97
[2024-06-26 06:32] LABS: MANUAL DIFF FLAG NO
[2024-06-26 06:56] LABS: Basophils Percent Auto 0.4 % (0-2); Eosinophils Absolute Auto 0.1 X10*3/uL (0.0-0.4); Eosinophils Percent Auto 1.1 % (0-4); Hematocrit 36.8 % (37.0-47.0); Hemoglobin 11.6 g/dl (12.0-16.0); Imm Gran Abs Auto 0.04 X10*3/uL (0.00-0.03); Imm Gran Pct Auto 0.6 % (0.0-0.4); Lymphocytes Absolute Auto 1.2 X10*3/uL (1.2-4.9); Lymphocytes Percent Auto 17.2 % (20-40); Mean Corpuscular HGB Conc 31.5 g/dl (31.0-35.0); Mean Corpuscular Hemoglobin 25.4 pg (27.0-33.0); Mean Corpuscular Volume 80.7 fL (80.0-98.0); Mean Platelet Volume 9.9 fL (9.4-12.3); Monocytes Absolute Auto 0.4 X10*3/uL (0.1-1.2); Neutrophils Absolute Auto 5.3 x10*3/uL (2.0-8.3); Neutrophils Percent Auto 75.7 % (45-73); Platelet Count 223 X10*3/uL (160-400); Red Blood Count 4.56 X10*6/uL (4.20-5.50); Red Cell Distribution Width 19.9 % (11.0-16.0)
[2024-06-26 07:00] LABS: Anion Gap 10 (12-20); Blood Urea Nitrogen 11 mg/dL (9-16); Calcium 9.2 mg/dL (8.4-10.2); Carbon Dioxide 27 mmol/L (22-29); Chloride 104 mmol/L (96-108); Creatinine Clr Calc Pharmacy 85.8; Estimated Glomerular Filt Rate 58; Glucose Random 202 mg/dL (60-115); Magnesium 1.9 mg/dL (1.6-2.6); Potassium 3.5 mmol/L (3.3-5.1); Sodium 137 mmol/L (135-145)
--- NOTE | 2024-06-26 07:16 | HO.PM.IMPN ---
Subjective Subjective Date of Service: 06/26/24 Interval History: Seen in follow up for severe sepsis, perinephric abscess/hematoma Interval history: Vitals improved, sepsis resolved, WBC trending down. Denies n/v, dysuria, hematuria, abd pain, flank pain. Reports frustration regarding symptom recurrence Review of Systems Review of Systems: Yes all other systems are reviewed and are negative Physical Exam Vital Signs: Vital Signs: Last Vital Signs Temp 98.3 F 06/26/24 03:47 Pulse 90 06/26/24 03:47 Resp 20 06/26/24 03:47 BP 138/71 06/26/24 03:47 Pulse Ox 97 06/26/24 03:47 O2 Del Method Nasal Cannula 06/26/24 03:47 O2 Flow Rate 2 06/26/24 03:47 Oxygen Flow Rate 2 06/25/24 13:00 BMI result Body Mass Index 45.2 Constitutional - Awake and Alert, No apparent distress Eyes - PERRLA, EOMI Cardiovascular - S1S2, RRR, No edema Respiratory - Normal lung expansion, Normal respiratory effort, No respiratory distress, CTA bilaterally Gastrointestinal - NT / ND; +BS; No rebound or guarding : drain in place left flank with serosanguinous output Extremities - no calf tenderness bilaterally, no swelling Skin - Warm/Dry Neurological - Alert & oriented x3 Psychological - Appropriate affect Objective Data Active Medications Acetaminophen (Acetaminophen 325 Mg Tablet) 650 mg PO Q6H PRN PRN Reason: Pain, Mild (Pain Scale 1-3), fever or headache Last Admin: 06/25/24 15:49 Dose: 650 mg Documented By: IVORY Calcium Carbonate (Calcium Carbonate 750 Mg Tab.Chew) 750 mg PO Q4H PRN PRN Reason: Heartburn Glucose (Glucose Gel 15 Gm Gel..Gram.) 15 gm PO Q15M PRN; Protocol PRN Reason: per Hypoglycemia Standing Ord. Heparin Sodium (Porcine) (Heparin Sodium,Porcine 5,000 Unit/Ml Vial) 5,000 unit SUBCUT Q12H [facility] Last Admin: 06/25/24 20:59 Dose: 5,000 unit Documented By: REGGIE Sodium Chloride (Ns) 1,000 mls @ 100 mls/hr IVCONT .Q10H NUBIA Last Admin: 06/26/24 01:00 Dose: 100 mls/hr Documented By: REGGIE Ceftriaxone Sodium 1 gm/ (Sodium Chloride) 50 mls @ 100 mls/hr IV Q24H [facility] Metronidazole (Flagyl) 500 mg in 100 mls @ 100 mls/hr IV Q8H [facility] Last Infusion: 06/26/24 02:19 Dose: Infused Documented By: REGGIE Dextrose (D10) 250 mls @ 750 mls/hr IV Q15M PRN; Protocol PRN Reason: per Hypoglycemia Standing Ord. Insulin Human Lispro (Insulin Lispro 100 Unit/Ml 3 Ml Vial) 0 unit SUBCUT QIDACHS [facility]; Protocol Last Admin: 06/25/24 20:58 Dose: 6 unit Documented By: REGGIE Comments: bs 267 Magnesium Hydroxide (Milk Of Magnesia 30 Ml Oral.Susp) 30 ml PO DAILY PRN PRN Reason: Constipation Melatonin (Melatonin 3 Mg Tablet) 6 mg PO BEDTIME PRN PRN Reason: Insomnia Ondansetron HCl (Ondansetron Hcl 4 Mg/2 Ml Vial) 4 mg IVPUSH Q8H PRN PRN Reason: Nausea and Vomiting Sodium Chloride (0.9 % Sodium Chloride Flush 3 Ml Syringe) 3 ml IVFLUSH QSHIFT [facility] Last Admin: 06/26/24 00:55 Dose: Not Given Documented By: REGGIE Non-Admin Reason: IV Running Labs 06/26/24 05:54 06/26/24 05:54 Labs: Laboratory Results - last 24 hr 06/25/24 06/25/24 06/25/24 13:39 14:31 15:43 MCV 79.1 L MCH 25.4 L MCHC 32.2 RDW 20.1 H Plt Count 262 D MPV 9.3 L Immature Gran % (Auto) 0.5 H Neut % (Auto) 84.8 H Lymph % (Auto) 10.2 L [place] % (Auto) 4.3 Eos % (Auto) 0.0 Baso % (Auto) 0.2 Lymph # (Auto) 1.1 L [place] # (Auto) 0.5 Eos # (Auto) 0.0 Baso # (Auto) 0.0 Abs Immat Gran (auto) 0.06 H Absolute Neuts (auto) 9.4 H Absolute Nucleated RBC 0.000 Nucleated RBC % (auto) 0.0 PT 12.9 INR 1.1 Anion Gap 17 Estim Creat Clear Calc 62.1 Estimated GFR 40 POC Glucose Random Glucose 326 H Lactic Acid 3.3 H* Lactic Acid F/U @ 2Hr 1.6 Calcium 9.7 D Magnesium 1.5 L Total Bilirubin 0.6 Direct Bilirubin 0.2 AST 15 ALT 18 Alkaline Phosphatase 102 B-Natriuretic Peptide 47 Total Protein 8.0 Albumin 3.6 Lipase 13 Urine Color Yellow Urine Appearance Clear Urine pH 5.5 Ur Specific [place] >= 1.030 H Urine Protein 100 (2+) H Urine Glucose (UA) >=1000 H Urine Ketones Negative Urine Blood Small (1+) H Urine Nitrite Negative Ur Leukocyte Esterase Negative Urine RBC 6-10 H Urine WBC 0-5 Ur Squamous Epith Cells 3-5 Urine Bacteria None Seen Hyaline Casts 0-2 06/25/24 06/26/24 17:29 05:54 MCV 80.7 MCH 25.4 L MCHC 31.5 RDW 19.9 H Plt Count 223 MPV 9.9 Immature Gran % (Auto) 0.6 H Neut % (Auto) 75.7 H Lymph % (Auto) 17.2 L [place] % (Auto) 5.0 Eos % (Auto) 1.1 Baso % (Auto) 0.4 Lymph # (Auto) 1.2 [place] # (Auto) 0.4 Eos # (Auto) 0.1 Baso # (Auto) 0.0 Abs Immat Gran (auto) 0.04 H Absolute Neuts (auto) 5.3 Absolute Nucleated RBC 0.000 Nucleated RBC % (auto) 0.0 PT INR Anion Gap 10 L Estim Creat Clear Calc 85.8 Estimated GFR 58 POC Glucose 267 H Random Glucose 202 H Lactic Acid Lactic Acid F/U @ 2Hr Calcium 9.2 Magnesium 1.9 Total Bilirubin Direct Bilirubin AST ALT Alkaline Phosphatase B-Natriuretic Peptide Total Protein Albumin Lipase Urine Color Urine Appearance Urine pH Ur Specific [place] Urine Protein Urine Glucose (UA) Urine Ketones Urine Blood Urine Nitrite Ur Leukocyte Esterase Urine RBC Urine WBC Ur Squamous Epith Cells Urine Bacteria Hyaline Casts Assessment and Plan (1) Enterocutaneous fistula: Status: Acute (2) Perinephric fluid collection: Status: Acute Plan 53-year-old female with pertinent history of nephrolithiasis, left subscapsular hematoma, [id number]-qyruccphf type 2 diabetes mellitus, obesity, hypertension, CAD, asthma not on home oxygen, mixed hyperlipidemia admitted for further management of left perinephric abscess with severe sepsis #Acute recurrent left perinephric abscess/hematoma with severe sepsis -Pt met SIRS criteria while at [facility] with WBC 12.2, tachycardia 103, tachypnea 23 at 0910 this morning with lactic acidosis 3.3 at 1339, repeat wnl. Continued with tachypnea and tachycardia in the ED. No other end organ damage. No septic shock at time of admission. Sepsis resolved 06/26 -CT abdomen pelvis shows small left perinephric fluid and air collection with left retroperitoneal drain terminating lateral to the perinephric collection in the retroperitoneal fat consider repositioning. There is also additional left retroperitoneal fluid collection more superiorly adjacent to the pancreatic tail and in the left splenic hilum measuring 5 cm possibly representing hematoma versus abscess. As well as a nonobstructive left lower pole renal calculi without hydronephrosis. -CT IR drainage ordered to assess for drain placement to evaluate findings noted on CT scan from [facility]. Currently draining serosanguinous ouput -Admitted with dc 06/03 for same s/p IR CHARLENE drain placement, remains in place. Culture grew E coli, Klebsiella, strep viridans sensitive to ceftriaxone. Anaerobic culture grew Bacteroides -IV ctx and flagyl (initiated 06/25) -Per Urology/general surgery, keep NPO except for small sips/ice chips for bowel rest given related colonic fistula connecting to the perineprhic collection. 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 Keep NPO for bowel rest # acute hyponatremia-suspect pseudo hyponatremia in setting of hyperglycemia -resolved # acute hypomagnesemia -repleted, initiate 400mg magoxide BID # [id number] type 2 diabetes -POC glucose, Admelog sliding scale. Advance to diabetic diet # hypertension -continue lisinopril # class 3 obesity -weight loss efforts DVT prophylaxis-heparin Full code Ongoing inpatient stay required for IV antibiotic treatment due to left perinephric abscess with severe sepsis also requiring expert consultation Quality Stroke Does the patient have a stroke diagnosis?: No VTE Prior VTE?: No VTE Risk Level:: Medical - moderate - high VTE Device Contraindication: Treatment Not Indicated VTE Drug Contraindication: N/A - Med Ordered
[2024-06-26 08:00] VITALS: BP 120/78; PULSE 95; RESP 18; TEMP 36.6; O2SAT 93
--- NOTE | 2024-06-26 08:08 | P.CNUR_ITS ---
History of Present Illness Consult details Consult date: 06/26/24 Narrative: CC: Controlled enteric fistula 53-year-old female Well known to Urology Presents with sepsis response and controlled enteric fistula Underwent renal stone Procedure in February Subsequently had hematoma around kidney and distal portion of pancreas Fistulogram performed last week showed continuity into large bowel Presented to [facility] Emergency room yesterday with SIRS criteria Transferred to [place] after stabilization Remains NPO with ice chips WBC is resolving with IV antibiotics General surgery consult pending - consult discussed directly with on-call general surgery Review of Systems 2 Constitutional: Constitutional: Reports as per HPI and Reports no additional constitutional complaints Cardiovascular: Cardiovascular: Reports as per HPI and Reports no additional cardiovascular complaints Respiratory: Respiratory: Reports as per HPI and Reports no additional respiratory complaints Gastrointestinal: Gastrointestinal: Reports as per HPI and Reports no additional gastrointestinal complaints Genitourinary: Genitourinary: Reports as per HPI Musculoskeletal: Musculoskeletal: Reports no additional musculoskeletal complaints and Reports as per HPI Neurologic: Reports system reviewed and no additional complaints, except as documented and Reports as per HPI [facility] Past Medical History Medical History Hematoma of kidney Perinephric hematoma Asthma Benign paroxysmal positional vertigo Obesity Cataract CKD (chronic kidney disease) Depression HLD (hyperlipidemia) Diabetes HTN (hypertension) Sleep apnea History of kidney stones History of in vitro fertilization Family History Family History Father Cancer Mother Epilepsia Dementia Brother Drug abuse Bipolar 1 disorder Son No problems noted. Surgical History Surgical History H/O breast biopsy History of ureteroscopy Hx of ectopic History of open heart surgery Social History Social History Household Members: Spouse and Children Housing: House Do you presently have visiting nurse or other home services: No Alcohol intake: never Patient Tobacco Use Status: Never used Tobacco Smoked in Last 30 Days: No Use of substances other than those prescribed or required for medical reasons: No Have you been hit, kicked, punched, or otherwise hurt by someone within the past year? If so, by whom?: No Do you feel safe in your current relationship?: Yes Is there a partner from a previous relationship who is making you feel unsafe now?: No Are you made to feel afraid or neglected: No Advance Directives: Yes Advance Directives on File: Yes Advance Directives Date on File: 04/12/24 Do you have a plan to hurt others: No Plan Recently lost weight without trying: No How much weight loss: Not applicable Eating poorly because of decreased appetite: No Nutrition screen score: 0 Nutrition Risks: No Nutritional Risk Patient : No : No Poor oral hygiene: No service: No Meds Allergies Allergy/AdvReac Type Severity Reaction Status Date / Time sulfamethoxazole Allergy Mild Hives Verified 06/25/24 13:05 [From Bactrim] trimethoprim [From Bactrim] Allergy Unknown Anaphylaxis Verified 06/25/24 13:05 FISH Allergy Unknown Anaphylaxis Uncoded 06/25/24 13:05 Active Medications: Current Medications Acetaminophen (Acetaminophen 325 Mg Tablet) 650 mg PO Q6H PRN PRN Reason: Pain, Mild (Pain Scale 1-3), fever or headache Last Admin: 06/25/24 15:49 Dose: 650 mg Calcium Carbonate (Calcium Carbonate 750 Mg Tab.Chew) 750 mg PO Q4H PRN PRN Reason: Heartburn Glucose (Glucose Gel 15 Gm Gel..Gram.) 15 gm PO Q15M PRN; Protocol PRN Reason: per Hypoglycemia Standing Ord. Heparin Sodium (Porcine) (Heparin Sodium,Porcine 5,000 Unit/Ml Vial) 5,000 unit SUBCUT Q12H [facility] Last Admin: 06/25/24 20:59 Dose: 5,000 unit Sodium Chloride (Ns) 1,000 mls @ 100 mls/hr IVCONT .Q10H [facility] Last Admin: 06/26/24 01:00 Dose: 100 mls/hr Ceftriaxone Sodium 1 gm/ (Sodium Chloride) 50 mls @ 100 mls/hr IV Q24H [facility] Metronidazole (Flagyl) 500 mg in 100 mls @ 100 mls/hr IV Q8H [facility] Last Infusion: 06/26/24 02:19 Dose: Infused Dextrose (D10) 250 mls @ 750 mls/hr IV Q15M PRN; Protocol PRN Reason: per Hypoglycemia Standing Ord. Insulin Human Lispro (Insulin Lispro 100 Unit/Ml 3 Ml Vial) 0 unit SUBCUT QIDACHS [facility]; Protocol Last Admin: 06/25/24 20:58 Dose: 6 unit Magnesium Hydroxide (Milk Of Magnesia 30 Ml Oral.Susp) 30 ml PO DAILY PRN PRN Reason: Constipation Melatonin (Melatonin 3 Mg Tablet) 6 mg PO BEDTIME PRN PRN Reason: Insomnia Ondansetron HCl (Ondansetron Hcl 4 Mg/2 Ml Vial) 4 mg IVPUSH Q8H PRN PRN Reason: Nausea and Vomiting Sodium Chloride (0.9 % Sodium Chloride Flush 3 Ml Syringe) [facility] Last Admin: 06/26/24 00:55 Dose: Not Given Home Medications ?Medication ?Instructions ?Recorded ?Confirmed ?Last Taken ?Type albuterol sulfate 90 mcg/actuation 2 puff inhalation Q6H PRN 09/17/23 06/25/24 Unknown History aerosol inhaler (Ventolin HFA) Shortness Of Breath Or Wheezing citalopram 40 mg tablet 40 mg PO DAILY 09/17/23 06/25/24 04/05/24 History lisinopril 20 mg tablet 20 mg PO DAILY 09/17/23 06/25/24 04/05/24 History meclizine 25 mg tablet 25 mg PO DAILY Vertigo 09/17/23 06/25/24 04/05/24 History simvastatin 40 mg tablet 40 mg PO BEDTIME 09/17/23 06/25/24 04/05/24 History tirzepatide 7.5 mg/0.5 mL 7.5 mg subcut WE@0900 03/02/24 06/25/24 05/16/24 History subcutaneous pen injector (Mounjaro) budesonide-formoterol HFA 160 2 puff inhalation BID 05/24/24 06/25/24 Unknown History mcg-4.5 mcg/actuation aerosol inhaler (Symbicort) montelukast 10 mg tablet 10 mg PO BEDTIME 05/24/24 06/25/24 Unknown History norethindrone acetate 5 mg tablet 5 mg PO DAILY 05/24/24 06/25/24 Unknown History Physical Exam 2 Vital Signs: Vital Signs: Last Vital Signs Temp 98.3 F 06/26/24 03:47 Pulse 90 06/26/24 03:47 Resp 20 06/26/24 03:47 BP 138/71 06/26/24 03:47 Pulse Ox 97 06/26/24 03:47 O2 Del Method Nasal Cannula 06/26/24 03:47 O2 Flow Rate 2 06/26/24 03:47 Oxygen Flow Rate 2 06/25/24 13:00 BMI result Body Mass Index 45.2 Const: General: cooperative, healthy appearing, comfortable and no acute distress Orientation/consciousness: patient oriented x3 HEENT: Face and sinus: Yes normal facial exam Mouth: moist mucous membranes Neck: Neck: Yes normal visual inspection, Yes full ROM and Yes trachea midline Chest: Chest palpation & inspection: normal inspection of the chest Resp: Effort & Inspection: normal respiratory effort, able to speak in complete sentences and no respiratory distress GI: Inspection: Yes normal to inspection Back/Spine/Pelvis: Cervical Spine: normal cervical lordosis Thoracic/Lumbar Spine: thoracic and lumbar spine normal to inspection Skin: General skin exam: no rashes or lesions noted Neuro: General: patient oriented x3, tone normal and moves all extremities Extrem: General: Yes normal to inspection and Yes capillary refill normal Results Labs 06/26/24 05:54 06/26/24 05:54 Labs: Abnormal lab results 06/25/24 06/25/24 06/25/24 Range/Units 13:39 14:31 17:29 WBC 11.1 H (4.8-10.8) X10*3/uL Hgb (12.0-16.0) g/dl Hct (37.0-47.0) % MCV 79.1 L (80.0-98.0) fL MCH 25.4 L (27.0-33.0) pg RDW 20.1 H (11.0-16.0) % MPV 9.3 L (9.4-12.3) fL Immature Gran % (Auto) 0.5 H (0.0-0.4) % Neut % (Auto) 84.8 H (45-73) % Lymph % (Auto) 10.2 L (20-40) % Lymph # (Auto) 1.1 L (1.2-4.9) X10*3/uL Abs Immat Gran (auto) 0.06 H (0.00-0.03) X10*3/uL Absolute Neuts (auto) 9.4 H (2.0-8.3) x10*3/uL Sodium 132 L (135-145) mmol/L Anion Gap (12-20) POC Glucose 267 H (60-115) mg/dL Random Glucose 326 H (60-115) mg/dL Lactic Acid 3.3 H* (0.5-2.0) mmol/L Magnesium 1.5 L (1.6-2.6) mg/dL Ur Specific Tennyson >= 1.030 H (1.005-1.025) Urine Protein 100 (2+) H (Neg-Trace) mg/dL Urine Glucose (UA) >=1000 H (Negative) mg/dL Urine Blood Small (1+) H (Negative) Urine RBC 6-10 H (0-2) /HPF 06/26/24 Range/Units 05:54 WBC (4.8-10.8) X10*3/uL Hgb 11.6 L (12.0-16.0) g/dl Hct 36.8 L (37.0-47.0) % MCV (80.0-98.0) fL MCH 25.4 L (27.0-33.0) pg RDW 19.9 H (11.0-16.0) % MPV (9.4-12.3) fL Immature Gran % (Auto) 0.6 H (0.0-0.4) % Neut % (Auto) 75.7 H (45-73) % Lymph % (Auto) 17.2 L (20-40) % Lymph # (Auto) (1.2-4.9) X10*3/uL Abs Immat Gran (auto) 0.04 H (0.00-0.03) X10*3/uL Absolute Neuts (auto) (2.0-8.3) x10*3/uL Sodium (135-145) mmol/L Anion Gap 10 L (12-20) POC Glucose (60-115) mg/dL Random Glucose 202 H (60-115) mg/dL Lactic Acid (0.5-2.0) mmol/L Magnesium (1.6-2.6) mg/dL Ur Specific Tennyson (1.005-1.025) Urine Protein (Neg-Trace) mg/dL Urine Glucose (UA) (Negative) mg/dL Urine Blood (Negative) Urine RBC (0-2) /HPF Short CBC 06/25/24 06/26/24 Range/Units 13:39 05:54 WBC 11.1 H 7.0 (4.8-10.8) X10*3/uL Hgb 12.9 D 11.6 L (12.0-16.0) g/dl Hct 40.1 D 36.8 L (37.0-47.0) % Plt Count 262 D 223 (160-400) X10*3/uL BMP 06/25/24 06/26/24 13:39 05:54 Sodium 132 L 137 Potassium 3.8 3.5 Chloride 97 104 Carbon Dioxide 22 27 BUN 13 11 Creatinine 1.38 1.00 Calcium 9.7 D 9.2 Liver Function 06/25/24 Range/Units 13:39 Total Bilirubin 0.6 (0.0-1.0) mg/dL Direct Bilirubin 0.2 (0.0-0.5) mg/dL AST 15 (5-31) U/L ALT 18 (0-31) U/L Alkaline Phosphatase 102 (39-117) U/L Albumin 3.6 (3.5-5.0) g/dL Urine 06/25/24 Range/Units 14:31 Urine Color Yellow Urine Appearance Clear Urine pH 5.5 (5.0-9.0) Ur Specific Tennyson >= 1.030 H (1.005-1.025) Urine Protein 100 (2+) H (Neg-Trace) mg/dL Urine Glucose (UA) >=1000 H (Negative) mg/dL All other labs normal. Assessment and Plan (1) Perinephric abscess: Status: Acute (2) Enterocutaneous fistula: Status: Acute Plan Bowel rest Would proceed according to plan from general surgery Procedures Date of Service Date of Service: 06/26/24
[2024-06-26 08:55] LABS: Glucose, Whole Blood 186 mg/dL (60-115)
--- NOTE | 2024-06-26 09:06 | PM.CNGS ---
History of Present Illness Consult details Consult date: 06/26/24 Requesting physician: Ignacia Sandoval Narrative: 53-year-old female patient with a complicated recent history found to have a left staghorn calculus, greater than 2.5 cm, s/p retrograde cystoscopy with laser lithotripsy and ureteral stent placement on 12/28/2023. She underwent a 2nd lithotripsy on 02/08/2024 for residual stone. She subsequently developed a subcapsular hematoma and presented with left flank pain and fever. A left retrograde cystoscopy with stent placement was performed on 03/03/2024. The hematoma appeared to have increased in size over time and on 05/25/2024 underwent IR drain placement. Subsequent CT abdomen and pelvis on 05/31/2024 seem to indicate a fistula formation to the left colon later confirmed on sonogram performed on 06/24/2024. Patient reports developing nausea, vomiting, fever of 101, chills, and generalized malaise and was taken by ambulance to [facility]. She was subsequently transferred to [facility] for further management. Patient continues to have the IR drain in place which is producing bloody fluid without feculent or bilious fluid noted. Admitting laboratories revealed a WBC of 11.1, sodium 132, glucose 326, and lactic acid of 3.3. Her past medical history is significant for diabetes mellitus type 2, obesity, hypertension, coronary artery disease, asthma, and mixed hyperlipidemia. This morning she reports some left flank pain but denies fever, chills, nausea or vomiting. She was admitted to the hospitalist service for IV antibiotics. Laboratories this morning revealed WBC of 7.0. Repeat lactic acid yesterday was normal at 1.6. Surgical consultation was requested for management of the apparent colonic-perinephric fistula (see images below). Review of Systems Review of Systems: Yes all other systems are reviewed and are negative Constitutional: Constitutional: Reports chills, Reports fever(s), Denies headache(s), Reports poor appetite and Reports weakness ENT: Denies headache(s) Cardiovascular: Cardiovascular: Denies chest pain, Denies irregular heart rhythm, Denies palpitations and Denies dyspnea Respiratory: Respiratory: Denies cough, Denies excessive phlegm production and Denies dyspnea Gastrointestinal: Gastrointestinal: Reports abdominal pain, Denies bloating, Denies change in bowel habits, Denies constipation, Denies heartburn, Denies diarrhea, Reports nausea and Denies vomiting Genitourinary: Genitourinary: Denies urinary frequency, Denies dysuria and Denies urinary urgency Musculoskeletal: Musculoskeletal: Reports back pain, Denies muscle weakness and Denies numbness Integumentary/Breasts: Skin/Breast: Denies changing lesions and Denies unusual bruising Neurologic: Denies headache(s), Denies numbness, Denies paresthesias and Reports weakness Psychiatric: Psychiatric: Denies anxiety and Denies depression Endocrine: Endocrine: Denies palpitations Hematologic/Lymphatic: Hematologic/Lymphatic: Denies lymphadenopathy [facility] Past Medical History Medical History Hematoma of kidney Perinephric hematoma Asthma Benign paroxysmal positional vertigo Obesity Cataract CKD (chronic kidney disease) Depression HLD (hyperlipidemia) Diabetes HTN (hypertension) Sleep apnea History of kidney stones History of in vitro fertilization Family History Family History Father Cancer Mother Epilepsia Dementia Brother Drug abuse Bipolar 1 disorder Son No problems noted. Surgical History Surgical History H/O breast biopsy History of ureteroscopy Hx of ectopic History of open heart surgery Social History Social History Household Members: Spouse and Children Housing: House Do you presently have visiting nurse or other home services: No Alcohol intake: never Patient Tobacco Use Status: Never used Tobacco Smoked in Last 30 Days: No Use of substances other than those prescribed or required for medical reasons: No Have you been hit, kicked, punched, or otherwise hurt by someone within the past year? If so, by whom?: No Do you feel safe in your current relationship?: Yes Is there a partner from a previous relationship who is making you feel unsafe now?: No Are you made to feel afraid or neglected: No Advance Directives: Yes Advance Directives on File: Yes Advance Directives Date on File: 04/12/24 Do you have a plan to hurt others: No Plan Recently lost weight without trying: No How much weight loss: Not applicable Eating poorly because of decreased appetite: No Nutrition screen score: 0 Nutrition Risks: No Nutritional Risk Patient : No : No Poor oral hygiene: No service: No Meds Allergies Allergy/AdvReac Type Severity Reaction Status Date / Time sulfamethoxazole Allergy Mild Hives Verified 06/25/24 13:05 [From Bactrim] trimethoprim [From Bactrim] Allergy Unknown Anaphylaxis Verified 06/25/24 13:05 FISH Allergy Unknown Anaphylaxis Uncoded 06/25/24 13:05 Active Medications: Current Medications Acetaminophen (Acetaminophen 325 Mg Tablet) 650 mg PO Q6H PRN PRN Reason: Pain, Mild (Pain Scale 1-3), fever or headache Last Admin: 06/25/24 15:49 Dose: 650 mg Calcium Carbonate (Calcium Carbonate 750 Mg Tab.Chew) 750 mg PO Q4H PRN PRN Reason: Heartburn Glucose (Glucose Gel 15 Gm Gel..Gram.) 15 gm PO Q15M PRN; Protocol PRN Reason: per Hypoglycemia Standing Ord. Heparin Sodium (Porcine) (Heparin Sodium,Porcine 5,000 Unit/Ml Vial) 5,000 unit SUBCUT Q12H [facility] Last Admin: 06/25/24 20:59 Dose: 5,000 unit Sodium Chloride (Ns) 1,000 mls @ 100 mls/hr IVCONT .Q10H [facility] Last Admin: 06/26/24 01:00 Dose: 100 mls/hr Ceftriaxone Sodium 1 gm/ (Sodium Chloride) 50 mls @ 100 mls/hr IV Q24H [facility] Metronidazole (Flagyl) 500 mg in 100 mls @ 100 mls/hr IV Q8H [facility] Last Admin: 06/26/24 08:52 Dose: 100 mls/hr Dextrose (D10) 250 mls @ 750 mls/hr IV Q15M PRN; Protocol PRN Reason: per Hypoglycemia Standing Ord. Insulin Human Lispro (Insulin Lispro 100 Unit/Ml 3 Ml Vial) 0 unit SUBCUT QIDACHS [facility]; Protocol Last Admin: 06/26/24 08:52 Dose: Not Given Magnesium Hydroxide (Milk Of Magnesia 30 Ml Oral.Susp) 30 ml PO DAILY PRN PRN Reason: Constipation Melatonin (Melatonin 3 Mg Tablet) 6 mg PO BEDTIME PRN PRN Reason: Insomnia Ondansetron HCl (Ondansetron Hcl 4 Mg/2 Ml Vial) 4 mg IVPUSH Q8H PRN PRN Reason: Nausea and Vomiting Sodium Chloride (0.9 % Sodium Chloride Flush 3 Ml Syringe) 3 ml IVFLUSH QSHIFT [facility] Last Admin: 06/26/24 08:52 Dose: Not Given Home Medications ?Medication ?Instructions ?Recorded ?Confirmed ?Last Taken ?Type albuterol sulfate 90 mcg/actuation 2 puff inhalation Q6H PRN 09/17/23 06/25/24 Unknown History aerosol inhaler (Ventolin HFA) Shortness Of Breath Or Wheezing citalopram 40 mg tablet 40 mg PO DAILY 09/17/23 06/25/24 04/05/24 History lisinopril 20 mg tablet 20 mg PO DAILY 09/17/23 06/25/24 04/05/24 History meclizine 25 mg tablet 25 mg PO DAILY Vertigo 09/17/23 06/25/24 04/05/24 History simvastatin 40 mg tablet 40 mg PO BEDTIME 09/17/23 06/25/24 04/05/24 History tirzepatide 7.5 mg/0.5 mL 7.5 mg subcut WE@0900 03/02/24 06/25/24 05/16/24 History subcutaneous pen injector (Mounjaro) budesonide-formoterol HFA 160 2 puff inhalation BID 05/24/24 06/25/24 Unknown History mcg-4.5 mcg/actuation aerosol inhaler (Symbicort) montelukast 10 mg tablet 10 mg PO BEDTIME 05/24/24 06/25/24 Unknown History norethindrone acetate 5 mg tablet 5 mg PO DAILY 05/24/24 06/25/24 Unknown History Physical Exam Vital Signs: Vital Signs: Last Vital Signs Temp 97.9 F 06/26/24 08:00 Pulse 95 06/26/24 08:00 Resp 18 06/26/24 08:00 BP 120/78 06/26/24 08:00 Pulse Ox 93 06/26/24 08:00 O2 Del Method Room Air 06/26/24 08:00 O2 Flow Rate 2 06/26/24 03:47 Oxygen Flow Rate 2 06/25/24 13:00 BMI result Body Mass Index 45.2 Const: General: cooperative and no acute distress Nutritional Appearance: well nourished Orientation/consciousness: patient oriented x3 Limitations: no limitations HEENT: Head: Yes normocephalic and Yes atraumatic Ears: hearing grossly normal bilaterally Resp: Effort & Inspection: normal respiratory effort, no audible wheezes, no cough and no respiratory distress Cardio: Jugular venous distension: no JVD GI: Other: IR drain in left flank with mainly bloody fluid, no fecal material, no bile Inspection: Yes normal to inspection Palpation (GI): Soft to palpation, nontender, no guarding and not rigid Skin: Other: Warm, dry, no rash Neuro: General: patient oriented x3 Extrem: General: Yes no clubbing, cyanosis or edema Results Labs 06/26/24 05:54 06/26/24 05:54 Labs: Abnormal lab results 06/25/24 06/25/24 06/25/24 Range/Units 13:39 14:31 17:29 WBC 11.1 H (4.8-10.8) X10*3/uL Hgb (12.0-16.0) g/dl Hct (37.0-47.0) % MCV 79.1 L (80.0-98.0) fL MCH 25.4 L (27.0-33.0) pg RDW 20.1 H (11.0-16.0) % MPV 9.3 L (9.4-12.3) fL Immature Gran % (Auto) 0.5 H (0.0-0.4) % Neut % (Auto) 84.8 H (45-73) % Lymph % (Auto) 10.2 L (20-40) % Lymph # (Auto) 1.1 L (1.2-4.9) X10*3/uL Abs Immat Gran (auto) 0.06 H (0.00-0.03) X10*3/uL Absolute Neuts (auto) 9.4 H (2.0-8.3) x10*3/uL Sodium 132 L (135-145) mmol/L Anion Gap (12-20) POC Glucose 267 H (60-115) mg/dL Random Glucose 326 H (60-115) mg/dL Lactic Acid 3.3 H* (0.5-2.0) mmol/L Magnesium 1.5 L (1.6-2.6) mg/dL Ur Specific Cochrane >= 1.030 H (1.005-1.025) Urine Protein 100 (2+) H (Neg-Trace) mg/dL Urine Glucose (UA) >=1000 H (Negative) mg/dL Urine Blood Small (1+) H (Negative) Urine RBC 6-10 H (0-2) /HPF 06/26/24 06/26/24 Range/Units 05:54 08:44 WBC (4.8-10.8) X10*3/uL Hgb 11.6 L (12.0-16.0) g/dl Hct 36.8 L (37.0-47.0) % MCV (80.0-98.0) fL MCH 25.4 L (27.0-33.0) pg RDW 19.9 H (11.0-16.0) % MPV (9.4-12.3) fL Immature Gran % (Auto) 0.6 H (0.0-0.4) % Neut % (Auto) 75.7 H (45-73) % Lymph % (Auto) 17.2 L (20-40) % Lymph # (Auto) (1.2-4.9) X10*3/uL Abs Immat Gran (auto) 0.04 H (0.00-0.03) X10*3/uL Absolute Neuts (auto) (2.0-8.3) x10*3/uL Sodium (135-145) mmol/L Anion Gap 10 L (12-20) POC Glucose 186 H (60-115) mg/dL Random Glucose 202 H (60-115) mg/dL Lactic Acid (0.5-2.0) mmol/L Magnesium (1.6-2.6) mg/dL Ur Specific Cochrane (1.005-1.025) Urine Protein (Neg-Trace) mg/dL Urine Glucose (UA) (Negative) mg/dL Urine Blood (Negative) Urine RBC (0-2) /HPF Short CBC 06/25/24 06/26/24 Range/Units 13:39 05:54 WBC 11.1 H 7.0 (4.8-10.8) X10*3/uL Hgb 12.9 D 11.6 L (12.0-16.0) g/dl Hct 40.1 D 36.8 L (37.0-47.0) % Plt Count 262 D 223 (160-400) X10*3/uL BMP 06/25/24 06/26/24 13:39 05:54 Sodium 132 L 137 Potassium 3.8 3.5 Chloride 97 104 Carbon Dioxide 22 27 BUN 13 11 Creatinine 1.38 1.00 Calcium 9.7 D 9.2 Liver Function 06/25/24 Range/Units 13:39 Total Bilirubin 0.6 (0.0-1.0) mg/dL Direct Bilirubin 0.2 (0.0-0.5) mg/dL AST 15 (5-31) U/L ALT 18 (0-31) U/L Alkaline Phosphatase 102 (39-117) U/L Albumin 3.6 (3.5-5.0) g/dL Urine 06/25/24 Range/Units 14:31 Urine Color Yellow Urine Appearance Clear Urine pH 5.5 (5.0-9.0) Ur Specific Cochrane >= 1.030 H (1.005-1.025) Urine Protein 100 (2+) H (Neg-Trace) mg/dL Urine Glucose (UA) >=1000 H (Negative) mg/dL All other labs normal. Imaging Additional studies: 06/24/2024 Sinogram: Progression: 03/02/2024, 04/07/2024, 05/23/2024, and 05/31/2024: Assessment and Plan (1) Enterocutaneous fistula: Status: Acute (2) Perinephric fluid collection: Status: Acute (3) Perinephric abscess: Status: Acute Plan 53-year-old female patient initially presenting with staghorn calculus of the left kidney, status post lithotripsy with subsequent hematoma/abscess formation. IR drain placed however subsequent CT and sonogram indicate the formation of a fistula to the left colon. The current IR drain does not show any evidence of feculent discharge and may require adjustment to assure complete drainage. Suggest IR consultation for adjustment to assure control of the fistula. I would recommend an operative management with bowel rest, IV fluids, possibly hyperalimentation. Discussed other options with the patient including diverting colostomy which I am not recommending. Patient is understandably frustrated but I would allow adequate time to allow the fistula to close non operatively. Discussed with Ignacia Sandoval and Dr. Bonilla. Procedures Date of Service Date of Service: 06/26/24
[2024-06-26] MEDS: Heparin Sodium,Porcine 5,000 UNIT/ML VIAL 5000 UNIT SUBCUT ×2 (09:36→19:45)
[2024-06-26] MEDS: Acetaminophen 325 MG TABLET 650 MG PO (11:15)
[2024-06-26 12:11] LABS: Glucose, Whole Blood 176 mg/dL (60-115)
--- NOTE | 2024-06-26 13:19 | MHC.CM.PN ---
CM met with patient at bedside. Patient lives in a home w/ . 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 Denies use of services. Has a CHARLENE drain in place, states she is proficient in drain care and does not feel she needs VNA. PCP Dr Galarza HCP on file and verified. [facility] is [facility]. DP: Goal is home self care. to transport. CM will continue to follow.
[2024-06-26] MEDS: Magnesium Oxide 400 MG TABLET PO ×2 (13:22→17:04)
[2024-06-26] MEDS: ondansetron HCL 4 MG/2 ML VIAL IVPUSH (13:34)
[2024-06-26 15:13] VITALS: BP 138/77; PULSE 85; RESP 18; TEMP 36.2; O2SAT 95
[2024-06-26] MEDS: Metoclopramide HCl 10 MG/2 ML VIAL 5 MG IVPUSH (15:14)
[2024-06-26] MEDS: LORazepam 2 MG/ML VIAL 0.5 MG IVPUSH (15:14)
[2024-06-26 16:24] LABS: Glucose, Whole Blood 177 mg/dL (60-115)
[2024-06-26 19:37] VITALS: BP 146/71; PULSE 84; RESP 18; TEMP 36.2; O2SAT 92
[2024-06-26] MEDS: 0.9 % Sodium Chloride Flush 3 ML SYRINGE IVFLUSH (19:39)
[2024-06-26 20:42] LABS: Glucose, Whole Blood 143 mg/dL (60-115)
[2024-06-26] MEDS: cefTRIAXone sodium 1 GM in 0.9 % Sodium Chloride 50 ML IV (22:06)
[2024-06-26 23:54] VITALS: BP 168/80; PULSE 97; RESP 20; TEMP 36; O2SAT 95
--- NOTE | 2024-06-26 23:59 | PC.NURSE ---
Assumed care of patient at 19:00. Please see shift assessment, tasks, and MAR for full details. Handoff report given to oncoming RN at 23:15.
[2024-06-27] VITALS (10 sets, daily range): BP systolic 123–185; BP diastolic 73–97; PULSE 73–93; RESP 12–22; TEMP 36.1–37.1; O2SAT 92–99
[2024-06-27] MEDS: metroNIDAZOLE/NS 500 MG/100 ML PIGGYBACK 100 MG IV ×3 (00:07→15:02)
[2024-06-27 05:57] LABS: Glucose, Whole Blood 145 mg/dL (60-115)
--- NOTE | 2024-06-27 06:04 | PC.NURSE ---
pt reported dizziness, VSS POC 142, pt states she has vertigo also
[2024-06-27 06:26] LABS: MANUAL DIFF FLAG NO
[2024-06-27 06:56] LABS: Basophils Percent Auto 0.3 % (0-2); Eosinophils Absolute Auto 0.1 X10*3/uL (0.0-0.4); Eosinophils Percent Auto 2.1 % (0-4); Hematocrit 36.3 % (37.0-47.0); Hemoglobin 11.5 g/dl (12.0-16.0); Imm Gran Abs Auto 0.02 X10*3/uL (0.00-0.03); Imm Gran Pct Auto 0.3 % (0.0-0.4); Lymphocytes Absolute Auto 1.9 X10*3/uL (1.2-4.9); Lymphocytes Percent Auto 30.3 % (20-40); Mean Corpuscular HGB Conc 31.7 g/dl (31.0-35.0); Mean Corpuscular Hemoglobin 25.3 pg (27.0-33.0); Mean Platelet Volume 9.7 fL (9.4-12.3); Monocytes Absolute Auto 0.4 X10*3/uL (0.1-1.2); Monocytes Percent Auto 7.1 % (2-11); Neutrophils Absolute Auto 3.7 x10*3/uL (2.0-8.3); Neutrophils Percent Auto 59.9 % (45-73); Platelet Count 234 X10*3/uL (160-400); Red Blood Count 4.54 X10*6/uL (4.20-5.50); Red Cell Distribution Width 19.3 % (11.0-16.0); White Blood Count 6.2 X10*3/uL (4.8-10.8)
[2024-06-27 07:05] LABS: Anion Gap 11 (12-20); Blood Urea Nitrogen 8 mg/dL (9-16); Calcium 8.7 mg/dL (8.4-10.2); Carbon Dioxide 27 mmol/L (22-29); Chloride 104 mmol/L (96-108); Creatinine Clr Calc Pharmacy 97.4; Estimated Glomerular Filt Rate > 60; Glucose Random 156 mg/dL (60-115); Magnesium 1.8 mg/dL (1.6-2.6); Potassium 3.2 mmol/L (3.3-5.1); Sodium 139 mmol/L (135-145)
--- NOTE | 2024-06-27 07:35 | P.PNIM_ITS ---
Subjective Subjective Date of Service: 06/27/24 Interval History: Seen in follow up for severe sepsis, perinephric abscess/hematoma Interval history: Vitals improved, sepsis resolved, WBC now WNL. Still reports nausea, positional lightheadedness. no dysuria, hematuria, abd pain, flank pain. Reports frustration regarding symptom recurrence Review of Systems Review of Systems: Yes all other systems are reviewed and are negative Physical Exam 2 Vital Signs: Vital Signs: Last Vital Signs Temp 96.9 F 06/27/24 04:00 Pulse 84 06/27/24 06:04 Resp 16 06/27/24 06:04 BP 148/81 H 06/27/24 06:04 Pulse Ox 92 06/27/24 06:04 O2 Del Method Room Air 06/27/24 06:04 O2 Flow Rate 2 06/26/24 03:47 Oxygen Flow Rate 2 06/25/24 13:00 BMI result Body Mass Index 45.2 Constitutional - Awake and Alert, No apparent distress Eyes - PERRLA, EOMI Cardiovascular - S1S2, RRR, No edema Respiratory - Normal lung expansion, Normal respiratory effort, No respiratory distress, CTA bilaterally Gastrointestinal - NT / ND; +BS; No rebound or guarding - L flank ttp with sam drain in place with sanguinous output, no feculant or purulent drainage Extremities - no calf tenderness bilaterally, no swelling Skin - Warm/Dry Neurological - Alert & oriented x3 Psychological - Appropriate affect Const: Other: Morbidly obese General: comfortable and no acute distress Resp: Effort & Inspection: normal respiratory effort Cardio: Rate: regular rate GI: Palpation (GI): Soft to palpation, not firm and no guarding Objective Data Active Medications Acetaminophen (Acetaminophen 325 Mg Tablet) 650 mg PO Q6H PRN PRN Reason: Pain, Mild (Pain Scale 1-3), fever or headache Last Admin: 06/26/24 11:15 Dose: 650 mg Documented By: GRACE Calcium Carbonate (Calcium Carbonate 750 Mg Tab.Chew) 750 mg PO Q4H PRN PRN Reason: Heartburn Glucose (Glucose Gel 15 Gm Gel..Gram.) 15 gm PO Q15M PRN; Protocol PRN Reason: per Hypoglycemia Standing Ord. Heparin Sodium (Porcine) (Heparin Sodium,Porcine 5,000 Unit/Ml Vial) 5,000 unit SUBCUT Q12H [facility] Last Admin: 06/26/24 19:45 Dose: 5,000 unit Documented By: MOHAN Sodium Chloride (Ns) 1,000 mls @ 100 mls/hr IVCONT .Q10H [facility] Last Admin: 06/26/24 22:27 Dose: 100 mls/hr Documented By: MOHAN Ceftriaxone Sodium 1 gm/ (Sodium Chloride) 50 mls @ 100 mls/hr IV Q24H [facility] Last Infusion: 06/26/24 22:36 Dose: Infused Documented By: MOHAN Metronidazole (Flagyl) 500 mg in 100 mls @ 100 mls/hr IV Q8H [facility] Last Infusion: 06/27/24 01:40 Dose: Infused Documented By: MENBrent Dextrose (D10) 250 mls @ 750 mls/hr IV Q15M PRN; Protocol PRN Reason: per Hypoglycemia Standing Ord. Insulin Human Lispro (Insulin Lispro 100 Unit/Ml 3 Ml Vial) 0 unit SUBCUT QIDACHS [facility]; Protocol Last Admin: 06/27/24 07:22 Dose: Not Given Documented By: CHELLE Non-Admin Reason: poc oor Magnesium Hydroxide (Milk Of Magnesia 30 Ml Oral.Susp) 30 ml PO DAILY PRN PRN Reason: Constipation Magnesium Oxide (Magnesium Oxide 400 Mg Tablet) [facility] Last Admin: 06/26/24 17:04 Dose: 400 mg Documented By: GRACE Melatonin (Melatonin 3 Mg Tablet) 6 mg PO BEDTIME PRN PRN Reason: Insomnia Ondansetron HCl (Ondansetron Hcl 4 Mg/2 Ml Vial) 4 mg IVPUSH Q8H PRN PRN Reason: Nausea and Vomiting Last Admin: 06/26/24 13:34 Dose: 4 mg Documented By: GRACE Oxycodone HCl (Oxycodone Hcl Immed Release 5 Mg Tablet) 5 mg PO Q4H PRN PRN Reason: Pain, Severe (Pain Scale 7-10) Sodium Chloride (0.9 % Sodium Chloride Flush 3 Ml Syringe) 3 ml IVFLUSH QSHIFT [facility] Last Admin: 06/27/24 07:22 Dose: Not Given Documented By: CHELLE Non-Admin Reason: Previously Administered Labs 06/27/24 05:27 06/27/24 05:27 Labs: Laboratory Results - last 24 hr 06/26/24 06/26/24 06/26/24 08:44 12:07 16:17 MCV MCH MCHC RDW Plt Count MPV Immature Gran % (Auto) Neut % (Auto) Lymph % (Auto) [place] % (Auto) Eos % (Auto) Baso % (Auto) Lymph # (Auto) [place] # (Auto) Eos # (Auto) Baso # (Auto) Abs Immat Gran (auto) Absolute Neuts (auto) Absolute Nucleated RBC Nucleated RBC % (auto) Anion Gap Estim Creat Clear Calc Estimated GFR POC Glucose 186 H 176 H 177 H Random Glucose Calcium Magnesium 06/26/24 06/27/24 06/27/24 19:40 05:27 05:52 MCV 80.0 MCH 25.3 L MCHC 31.7 RDW 19.3 H Plt Count 234 MPV 9.7 Immature Gran % (Auto) 0.3 Neut % (Auto) 59.9 Lymph % (Auto) 30.3 [place] % (Auto) 7.1 Eos % (Auto) 2.1 Baso % (Auto) 0.3 Lymph # (Auto) 1.9 [place] # (Auto) 0.4 Eos # (Auto) 0.1 Baso # (Auto) 0.0 Abs Immat Gran (auto) 0.02 Absolute Neuts (auto) 3.7 Absolute Nucleated RBC 0.000 Nucleated RBC % (auto) 0.0 Anion Gap 11 L Estim Creat Clear Calc 97.4 Estimated GFR > 60 POC Glucose 143 H 145 H Random Glucose 156 H Calcium 8.7 Magnesium 1.8 Microbiology Microbiology Results: Microbiology 06/25/24 15:43 Blood Culture - Preliminary Blood - Venous No growth after 24 hours. 06/25/24 14:31 Blood Culture - Preliminary Blood - Venous No growth after 24 hours. Assessment and Plan (1) Enterocutaneous fistula: Status: Acute (2) Perinephric fluid collection: Status: Acute Plan 53-year-old female with pertinent history of nephrolithiasis, left subscapsular hematoma, [id number] type 2 diabetes mellitus, obesity, hypertension, CAD, asthma not on home oxygen, mixed hyperlipidemia admitted for further management of left perinephric abscess with severe sepsis #Acute recurrent left perinephric abscess/hematoma with severe sepsis -Pt met SIRS criteria while at [facility] with WBC 12.2, tachycardia 103, tachypnea 23 at 0910 this morning with lactic acidosis 3.3 at 1339, repeat wnl. Continued with tachypnea and tachycardia in the ED. No other end organ damage. No septic shock at time of admission. Sepsis resolved 06/26 -CT abdomen pelvis shows small left perinephric fluid and air collection with left retroperitoneal drain terminating lateral to the perinephric collection in the retroperitoneal fat consider repositioning. There is also additional left retroperitoneal fluid collection more superiorly adjacent to the pancreatic tail and in the left splenic hilum measuring 5 cm possibly representing hematoma versus abscess. As well as a nonobstructive left lower pole renal calculi without hydronephrosis. -Admitted with dc 06/03 for same s/p IR SAM drain placement, remains in place. Culture grew E coli, Klebsiella, strep viridans sensitive to ceftriaxone. Anaerobic culture grew Bacteroides -IV ctx and flagyl (initiated 06/25) -Per Urology/general surgery, no surgical intervention at this time. Initially npo for bowel rest. Per general surgery, can advance diet following ct guided drain eval -CT IR drainage ordered to assess for drain placement to evaluate findings noted on CT scan from [facility]. Currently draining serosanguinous ouput. 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 Keep NPO for bowel rest #Acute diarrhea -gi panel and cdiff pcr pending #Acute nausea/vomiting -possibly r/t infection on arrival, but concern for enteritis/gastroenteritis given coinciding diarrhea -gi panel and cdiff pcr pending # acute hyponatremia-suspect pseudo hyponatremia in setting of hyperglycemia -resolved # acute hypomagnesemia -repleted, initiate 400mg magoxide BID # [id number] type 2 diabetes -POC glucose, Admelog sliding scale. Advance to diabetic diet # hypertension -continue lisinopril # class 3 obesity -weight loss efforts DVT prophylaxis-heparin Full code Ongoing inpatient stay required for IV antibiotic treatment due to left perinephric abscess with severe sepsis also requiring expert consultation Quality Stroke Does the patient have a stroke diagnosis?: No VTE Prior VTE?: No VTE Risk Level:: Medical - moderate - high VTE Device Contraindication: Treatment Not Indicated VTE Drug Contraindication: N/A - Med Ordered
[2024-06-27 07:46] LABS: Glucose, Whole Blood 174 mg/dL (60-115)
[2024-06-27] MEDS: 0.9 % Sodium Chloride 1,000 ML 100 ML IVCONT (08:31)
[2024-06-27] MEDS: Heparin Sodium,Porcine 5,000 UNIT/ML VIAL 5000 UNIT SUBCUT ×2 (08:32→21:21)
[2024-06-27] MEDS: Magnesium Oxide 400 MG TABLET PO (08:32)
[2024-06-27 09:40] LABS: Glucose, Whole Blood 150 mg/dL (60-115)
[2024-06-27] MEDS: Meclizine HCl 25 MG TABLET PO (10:27)
[2024-06-27] MEDS: ondansetron HCL 4 MG/2 ML VIAL IVPUSH ×2 (10:27→18:40)
--- NOTE | 2024-06-27 10:28 | P.PNGS_ITS ---
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 with multiple interventions Fluoro study last week shows likely connection of the perinephric abscess with the colon CHARLENE output has not been been feculent at all Physical Exam 2 Vital Signs: Vital Signs: Last Vital Signs Temp 98.7 F 06/27/24 07:59 Pulse 84 06/27/24 10:15 Resp 22 H 06/27/24 07:59 BP 123/97 H 06/27/24 10:15 Pulse Ox 94 06/27/24 09:36 O2 Del Method Room Air 06/27/24 09:36 O2 Flow Rate 2 06/26/24 03:47 Oxygen Flow Rate 2 06/25/24 13:00 BMI result Body Mass Index 45.2 Const: Other: Morbidly obese General: comfortable and no acute distress Resp: Effort & Inspection: normal respiratory effort Cardio: Rate: regular rate GI: Palpation (GI): Soft to palpation, not firm and no guarding Objective Data Active Medications Acetaminophen (Acetaminophen 325 Mg Tablet) 650 mg PO Q6H PRN PRN Reason: Pain, Mild (Pain Scale 1-3), fever or headache Last Admin: 06/26/24 11:15 Dose: 650 mg Documented By: GRACE Calcium Carbonate (Calcium Carbonate 750 Mg Tab.Chew) 750 mg PO Q4H PRN PRN Reason: Heartburn Glucose (Glucose Gel 15 Gm Gel..Gram.) 15 gm PO Q15M PRN; Protocol PRN Reason: per Hypoglycemia Standing Ord. Heparin Sodium (Porcine) (Heparin Sodium,Porcine 5,000 Unit/Ml Vial) 5,000 unit SUBCUT Q12H [facility] Last Admin: 06/27/24 08:32 Dose: 5,000 unit Documented By: CHELLE Sodium Chloride (Ns) 1,000 mls @ 100 mls/hr IVCONT .Q10H [facility] Last Admin: 06/27/24 08:31 Dose: 100 mls/hr Documented By: CHELLE Ceftriaxone Sodium 1 gm/ (Sodium Chloride) 50 mls @ 100 mls/hr IV Q24H [facility] Last Infusion: 06/26/24 22:36 Dose: Infused Documented By: MOHAN Metronidazole (Flagyl) 500 mg in 100 mls @ 100 mls/hr IV Q8H [facility] Last Infusion: 06/27/24 09:34 Dose: Infused Documented By: CHELLE Dextrose (D10) 250 mls @ 750 mls/hr IV Q15M PRN; Protocol PRN Reason: per Hypoglycemia Standing Ord. Sodium Chloride (Ns) 1,000 mls @ 999 mls/hr IV .Q1H1M [facility] Stop: 06/27/24 11:30 Insulin Human Lispro (Insulin Lispro 100 Unit/Ml 3 Ml Vial) 0 unit SUBCUT QIDACHS [facility]; Protocol Last Admin: 06/27/24 08:30 Dose: Not Given Documented By: CHELLE Non-Admin Reason: pt npo, pt stated doesnt want low sugar Magnesium Hydroxide (Milk Of Magnesia 30 Ml Oral.Susp) 30 ml PO DAILY PRN PRN Reason: Constipation Magnesium Oxide (Magnesium Oxide 400 Mg Tablet) 400 mg PO BIDPC [facility] Last Admin: 06/27/24 08:32 Dose: 400 mg Documented By: CHELLE Meclizine HCl (Meclizine Hcl 25 Mg Tablet) 25 mg PO Q8H PRN PRN Reason: Vertigo Last Admin: 06/27/24 10:27 Dose: 25 mg Documented By: CHELLE Melatonin (Melatonin 3 Mg Tablet) 6 mg PO BEDTIME PRN PRN Reason: Insomnia Ondansetron HCl (Ondansetron Hcl 4 Mg/2 Ml Vial) 4 mg IVPUSH Q8H PRN PRN Reason: Nausea and Vomiting Last Admin: 06/27/24 10:27 Dose: 4 mg Documented By: CHELLE Oxycodone HCl (Oxycodone Hcl Immed Release 5 Mg Tablet) 5 mg PO Q4H PRN PRN Reason: Pain, Severe (Pain Scale 7-10) Sodium Chloride (0.9 % Sodium Chloride Flush 3 Ml Syringe) 3 ml IVFLUSH QSHIFT [facility] Last Admin: 06/27/24 07:22 Dose: Not Given Documented By: CHELLE Non-Admin Reason: Previously Administered Labs 06/28/24 05:17 06/28/24 05:17 Labs: Laboratory Results - last 24 hr 06/26/24 06/26/24 06/26/24 12:07 16:17 19:40 MCV MCH MCHC RDW Plt Count MPV Immature Gran % (Auto) Neut % (Auto) Lymph % (Auto) [place] % (Auto) Eos % (Auto) Baso % (Auto) Lymph # (Auto) [place] # (Auto) Eos # (Auto) Baso # (Auto) Abs Immat Gran (auto) Absolute Neuts (auto) Absolute Nucleated RBC Nucleated RBC % (auto) Anion Gap Estim Creat Clear Calc Estimated GFR POC Glucose 176 H 177 H 143 H Random Glucose Calcium Magnesium 06/27/24 06/27/24 06/27/24 05:27 05:52 07:30 MCV 80.0 MCH 25.3 L MCHC 31.7 RDW 19.3 H Plt Count 234 MPV 9.7 Immature Gran % (Auto) 0.3 Neut % (Auto) 59.9 Lymph % (Auto) 30.3 [place] % (Auto) 7.1 Eos % (Auto) 2.1 Baso % (Auto) 0.3 Lymph # (Auto) 1.9 [place] # (Auto) 0.4 Eos # (Auto) 0.1 Baso # (Auto) 0.0 Abs Immat Gran (auto) 0.02 Absolute Neuts (auto) 3.7 Absolute Nucleated RBC 0.000 Nucleated RBC % (auto) 0.0 Anion Gap 11 L Estim Creat Clear Calc 97.4 Estimated GFR > 60 POC Glucose 145 H 174 H Random Glucose 156 H Calcium 8.7 Magnesium 1.8 06/27/24 09:36 MCV MCH MCHC RDW Plt Count MPV Immature Gran % (Auto) Neut % (Auto) Lymph % (Auto) [place] % (Auto) Eos % (Auto) Baso % (Auto) Lymph # (Auto) [place] # (Auto) Eos # (Auto) Baso # (Auto) Abs Immat Gran (auto) Absolute Neuts (auto) Absolute Nucleated RBC Nucleated RBC % (auto) Anion Gap Estim Creat Clear Calc Estimated GFR POC Glucose 150 H Random Glucose Calcium Magnesium Microbiology Microbiology Results: Microbiology 06/25/24 15:43 Blood Culture - Preliminary Blood - Venous No growth after 24 hours. 06/25/24 14:31 Blood Culture - Preliminary Blood - Venous No growth after 24 hours. Procedures Date of Service Date of Service: 06/28/24 Progress Note: A&P Assessment and plan (1) Perinephric fluid collection: Status: Acute Assessment and Plan: Question of fistula connection of the perinephric abscess with the colon CHARLENE output serosanguineous, not feculent Would leave CHARLENE drain in place Anticipate collection to resolve Okay for clear liquids, advance as tolerated Discussed plan with patient Case discussed with urology Time Spent With Patient Time: Total time managing care of this patient today ____ minutes. Quality Stroke Does the patient have a stroke diagnosis?: No VTE Prior VTE?: No VTE Risk Level:: Medical - moderate - high VTE Device Contraindication: Treatment Not Indicated VTE Drug Contraindication: N/A - Med Ordered
[2024-06-27] MEDS: 0.9 % Sodium Chloride 1,000 ML 999 ML IV (10:40)
[2024-06-27 11:36] LABS: CDiff Gene PCR NEGATIVE (Negative)
[2024-06-27] MEDS: Potassium Chloride ER 20 MEQ TAB.ER.PRT PO (11:37)
[2024-06-27 11:38] LABS: Glucose, Whole Blood 144 mg/dL (60-115)
--- NOTE | 2024-06-27 18:04 | PM.EVENT ---
Event Note Date of Service: 06/30/24 Event Note: drain in perinephric area repositioned - seems to be adewuately drained new drain placed in small collection near spleen pt tolerated the procedure well quinn Delgado IV abx ffup cultures Time Spent With Patient Time: Total time managing care of this patient today ____ minutes.
[2024-06-27 19:46] LABS: Glucose, Whole Blood 124 mg/dL (60-115)
[2024-06-27] MEDS: cefTRIAXone sodium 1 GM in 0.9 % Sodium Chloride 50 ML IV (22:30)
[2024-06-27] MEDS: Metoclopramide HCl 10 MG/2 ML VIAL 5 MG IVPUSH (22:30)
[2024-06-28] VITALS (8 sets, daily range): BP systolic 135–180; BP diastolic 75–95; PULSE 78–86; RESP 16–28; TEMP 36.1–36.4; O2SAT 95–99
[2024-06-28] MEDS: metroNIDAZOLE/NS 500 MG/100 ML PIGGYBACK 100 MG IV (02:25)
[2024-06-28] MEDS: Morphine Sulfate 2 MG/ML CARTRIDGE IVPUSH ×2 (05:09→23:22)
--- NOTE | 2024-06-28 06:02 | PC.NURSE ---
Addendum entered by Kat Shearer RN 06/28/24 06:46: Rn assessed for hypoglycemia, POC 151 Original Note: RN in room, patient shivering requesting morphine for pain mgmt 09/01. RN out of room to get morphine. RN returned and helped patient to slow breathing from 28 breaths per minute to 17 breaths per minute. morphine 2mg given per order -she was 10/10 pain. Following administration phlebotomy entered the room to draw morning labs, patient suddenly can't talk, open her eyes or really answer phlebotomy roller mill operator questions. PT presented with bilateral arm weakness and severe lethargy. the commercial development manager verna blood and RN took a set of vitals which were all normal, slightly hypertensive but not abnormal for patient. Neuro assessment completed - face symmetrical, arms even but she did have difficulty lifting them, squeezed RN hands - weak but the same on both sides, was able to track with her eyes, her pupils were equal and reactive, and she had the same strength to her feet and was able to follow commands, RN did have to ask the same questions more than once every time before getting a response. patient oriented to self, place, year and situation, when speaking patient was soft spoke and abrupt with speech. Dr. Levi Cho notified as well as Campus Recruiting Coordinator DANNY Junior and they both came to bedside. Pt presenting the same for provider, Provider ordered blood gases for patient. call berry within reach, bed alarm on.
[2024-06-28 06:09] LABS: MANUAL DIFF FLAG NO
[2024-06-28 06:12] LABS: Basophils Percent Auto 0.3 % (0-2); Eosinophils Absolute Auto 0.1 X10*3/uL (0.0-0.4); Eosinophils Percent Auto 1.8 % (0-4); Hematocrit 38.3 % (37.0-47.0); Hemoglobin 12.2 g/dl (12.0-16.0); Imm Gran Abs Auto 0.03 X10*3/uL (0.00-0.03); Imm Gran Pct Auto 0.4 % (0.0-0.4); Lymphocytes Absolute Auto 2.3 X10*3/uL (1.2-4.9); Lymphocytes Percent Auto 30.6 % (20-40); Mean Corpuscular HGB Conc 31.9 g/dl (31.0-35.0); Mean Corpuscular Hemoglobin 25.3 pg (27.0-33.0); Mean Corpuscular Volume 79.5 fL (80.0-98.0); Mean Platelet Volume 9.7 fL (9.4-12.3); Monocytes Absolute Auto 0.4 X10*3/uL (0.1-1.2); Monocytes Percent Auto 4.9 % (2-11); Neutrophils Absolute Auto 4.7 x10*3/uL (2.0-8.3); Platelet Count 317 X10*3/uL (160-400); Red Blood Count 4.82 X10*6/uL (4.20-5.50); Red Cell Distribution Width 18.7 % (11.0-16.0); White Blood Count 7.6 X10*3/uL (4.8-10.8)
[2024-06-28 06:39] LABS: Anion Gap 12 (12-20); Blood Urea Nitrogen 5 mg/dL (9-16); Calcium 9.7 mg/dL (8.4-10.2); Carbon Dioxide 32 mmol/L (22-29); Chloride 99 mmol/L (96-108); Creatinine Clr Calc Pharmacy 87.5; Estimated Glomerular Filt Rate 59; Glucose Random 155 mg/dL (60-115); Potassium 3.4 mmol/L (3.3-5.1); Sodium 140 mmol/L (135-145)
[2024-06-28 06:50] LABS: Glucose, Whole Blood 151 mg/dL (60-115)
[2024-06-28 07:04] LABS: Venous Blood Gas Refer to POC result
[2024-06-28 07:04] LABS: VBG Base Excess 7.4 mmol/L; VBG HCO3 34 mmol/L (22-26); VBG pCO2 57 mmHg; VBG pH 7.38 (7.32-7.43); VBG pO2 51 mmHg
[2024-06-28 07:21] LABS: Glucose, Whole Blood 163 mg/dL (60-115)
[2024-06-28] MEDS: Heparin Sodium,Porcine 5,000 UNIT/ML VIAL 5000 UNIT SUBCUT ×2 (07:51→19:25)
[2024-06-28] MEDS: metroNIDAZOLE 500 MG TABLET PO ×3 (07:51→23:22)
[2024-06-28] MEDS: Potassium Chloride ER 20 MEQ TAB.ER.PRT PO (07:51)
[2024-06-28] MEDS: Magnesium Oxide 400 MG TABLET PO ×2 (07:51→16:24)
[2024-06-28 11:07] LABS: Glucose, Whole Blood 225 mg/dL (60-115)
[2024-06-28 11:10] LABS: Adenovirus F 40/41 Not Detected (Not Detect.); Astrovirus Not Detected (Not Detect.); Campylobacter Not Detected (Not Detect.); Cryptosporidium Not Detected (Not Detect.); Cyclospora cayetanensis Not Detected (Not Detect.); E. coli EAEC Not Detected (Not Detect.); E. coli EPEC Not Detected (Not Detect.); E. coli ETEC Not Detected (Not Detect.); E. coli STEC Not Detected (Not Detect.); Entamoeba histolytica Not Detected (Not Detect.); Giardia lamblia Not Detected (Not Detect.); Norovirus GI/GII Not Detected (Not Detect.); Plesiomonas shigelloides Not Detected (Not Detect.); Rotavirus A Not Detected (Not Detect.); Salmonella Not Detected (Not Detect.); Sapovirus Not Detected (Not Detect.); Shigella sp./EIEC Not Detected (Not Detect.); Vibrio Not Detected (Not Detect.); Vibrio Cholerae Not Detected (Not Detect.); Yersinia enterocolitica Not Detected (Not Detect.)
[2024-06-28] MEDS: Insulin Lispro 100 UNIT/ML 3 ML VIAL SUBCUT ×3 (11:21→21:26)
--- NOTE | 2024-06-28 14:49 | P.PNGS_ITS ---
Subjective Subjective Date of Service: 06/29/24 Interval history: CHARLENE drains with thick serosanguineous output No events reported otherwise On diet and tolerating well Denies significant pain Physical Exam 2 Vital Signs: Vital Signs: Last Vital Signs Temp 96.9 F 06/28/24 12:00 Pulse 82 06/28/24 12:00 Resp 16 06/28/24 12:00 BP 152/85 H 06/28/24 12:00 Pulse Ox 95 06/28/24 12:00 O2 Del Method Room Air 06/28/24 12:00 O2 Flow Rate 2 06/27/24 18:45 Oxygen Flow Rate 2 06/25/24 13:00 BMI result Body Mass Index 45.2 Const: General: comfortable and no acute distress Resp: Effort & Inspection: normal respiratory effort GI: Other: CHARLENE drains in place, both of them with thick serosanguineous output, no pus, no feculent material Palpation (GI): Soft to palpation, not firm and nontender Objective Data Active Medications Acetaminophen (Acetaminophen 325 Mg Tablet) 650 mg PO Q6H PRN PRN Reason: Pain, Mild (Pain Scale 1-3), fever or headache Last Admin: 06/26/24 11:15 Dose: 650 mg Documented By: GRACE Calcium Carbonate (Calcium Carbonate 750 Mg Tab.Chew) 750 mg PO Q4H PRN PRN Reason: Heartburn Glucose (Glucose Gel 15 Gm Gel..Gram.) 15 gm PO Q15M PRN; Protocol PRN Reason: per Hypoglycemia Standing Ord. Heparin Sodium (Porcine) (Heparin Sodium,Porcine 5,000 Unit/Ml Vial) 5,000 unit SUBCUT Q12H [facility] Last Admin: 06/28/24 07:51 Dose: 5,000 unit Documented By: CHELLE Sodium Chloride (Ns) 1,000 mls @ 100 mls/hr IVCONT .Q10H [facility] Last Infusion: 06/27/24 11:34 Dose: Infused Documented By: CHELLE Ceftriaxone Sodium 1 gm/ (Sodium Chloride) 50 mls @ 100 mls/hr IV Q24H [facility] Last Infusion: 06/27/24 23:36 Dose: Infused Documented By: SARA Dextrose (D10) 250 mls @ 750 mls/hr IV Q15M PRN; Protocol PRN Reason: per Hypoglycemia Standing Ord. Insulin Human Lispro (Insulin Lispro 100 Unit/Ml 3 Ml Vial) 0 unit SUBCUT QIDACHS [facility]; Protocol Last Admin: 06/28/24 11:21 Dose: 4 unit Documented By: CHELLE Magnesium Hydroxide (Milk Of Magnesia 30 Ml Oral.Susp) 30 ml PO DAILY PRN PRN Reason: Constipation Magnesium Oxide (Magnesium Oxide 400 Mg Tablet) 400 mg PO BIDPC [facility] Last Admin: 06/28/24 07:51 Dose: 400 mg Documented By: CHELLE Meclizine HCl (Meclizine Hcl 25 Mg Tablet) 25 mg PO Q8H PRN PRN Reason: Vertigo Last Admin: 06/27/24 10:27 Dose: 25 mg Documented By: CHELLE Melatonin (Melatonin 3 Mg Tablet) 6 mg PO BEDTIME PRN PRN Reason: Insomnia Metoclopramide HCl (Metoclopramide Hcl 10 Mg/2 Ml Vial) 5 mg IVPUSH Q6H PRN PRN Reason: Nausea and Vomiting Last Admin: 06/27/24 22:30 Dose: 5 mg Documented By: SARA Metronidazole (Metronidazole 500 Mg Tablet) 500 mg PO Q8H [facility] Last Admin: 06/28/24 07:51 Dose: 500 mg Documented By: CHELLE Morphine Sulfate (Morphine Sulfate 2 Mg/Ml Cartridge) 2 mg IVPUSH Q3H PRN; Protocol PRN Reason: Pain, Severe (Pain Scale 7-10) Last Admin: 06/28/24 05:09 Dose: 2 mg Documented By: SARA Ondansetron HCl (Ondansetron Hcl 4 Mg/2 Ml Vial) 4 mg IVPUSH Q8H PRN PRN Reason: Nausea and Vomiting Last Admin: 06/27/24 18:40 Dose: 4 mg Documented By: STACIE Potassium Chloride (Potassium Chloride Er 20 Meq Tab.Er.Prt) 20 meq PO DAILY [facility] Last Admin: 06/28/24 07:51 Dose: 20 meq Documented By: CHELLE Sodium Chloride (0.9 % Sodium Chloride Flush 3 Ml Syringe) 3 ml IVFLUSH QSHIFT [facility] Last Admin: 06/28/24 13:43 Dose: Not Given Documented By: CHELLE Non-Admin Reason: Previously Administered Labs 06/28/24 05:17 06/28/24 05:17 Labs: Laboratory Results - last 24 hr 06/27/24 06/27/24 06/28/24 19:04 Unknown 05:17 MCV 79.5 L MCH 25.3 L MCHC 31.9 RDW 18.7 H Plt Count 317 D MPV 9.7 Immature Gran % (Auto) 0.4 Neut % (Auto) 62.0 Lymph % (Auto) 30.6 [place] % (Auto) 4.9 Eos % (Auto) 1.8 Baso % (Auto) 0.3 Lymph # (Auto) 2.3 [place] # (Auto) 0.4 Eos # (Auto) 0.1 Baso # (Auto) 0.0 Abs Immat Gran (auto) 0.03 Absolute Neuts (auto) 4.7 Absolute Nucleated RBC 0.000 Nucleated RBC % (auto) 0.0 VBG pH VBG pCO2 VBG pO2 VBG HCO3 VBG O2 Saturation VBG Base Excess Anion Gap 12 Estim Creat Clear Calc 87.5 Estimated GFR 59 POC Glucose 124 H Random Glucose 155 H Calcium 9.7 D Stl C. cayetanensis PCR Not Detected Stool Rotavirus A PCR Not Detected Stl Adenov F 40/41 PCR Not Detected Stool Astrovirus (PCR) Not Detected Stool Campylobacter PCR Not Detected Stool Cryptosporidium PCR Not Detected Stl Sh Tox Pr E STEC PCR Not Detected Stool E coli O157 PCR Not applicable Stl Enterotoxigenic E PCR Not Detected Stool EPEC (PCR) Not Detected Stool EAEC (PCR) Not Detected Stl E. histolytica PCR Not Detected Stool Giardia Lamblia PCR Not Detected Stl P. shigelloides PCR Not Detected Stool Salmonella PCR Not Detected Stool Sapovirus (PCR) Not Detected Stl Shigella/EIEC PCR Not Detected St Y.enterocolitica PCR Not Detected Stool Vibrio (PCR) Not Detected Stl Vibrio cholerae PCR Not Detected Stl Norovirus GI/GII PCR Not Detected 06/28/24 06/28/24 06/28/24 06:45 06:56 07:12 MCV MCH MCHC RDW Plt Count MPV Immature Gran % (Auto) Neut % (Auto) Lymph % (Auto) [place] % (Auto) Eos % (Auto) Baso % (Auto) Lymph # (Auto) [place] # (Auto) Eos # (Auto) Baso # (Auto) Abs Immat Gran (auto) Absolute Neuts (auto) Absolute Nucleated RBC Nucleated RBC % (auto) VBG pH 7.38 VBG pCO2 57 VBG pO2 51 VBG HCO3 34 H VBG O2 Saturation 78.0 VBG Base Excess 7.4 Anion Gap Estim Creat Clear Calc Estimated GFR POC Glucose 151 H 163 H Random Glucose Calcium Stl C. cayetanensis PCR Stool Rotavirus A PCR Stl Adenov F 40/ PCR Stool Astrovirus (PCR) Stool Campylobacter PCR Stool Cryptosporidium PCR Stl Sh Tox Pr E STEC PCR Stool E coli O157 PCR Stl Enterotoxigenic E PCR Stool EPEC (PCR) Stool EAEC (PCR) Stl E. histolytica PCR Stool Giardia Lamblia PCR Stl P. shigelloides PCR Stool Salmonella PCR Stool Sapovirus (PCR) Stl Shigella/EIEC PCR St Y.enterocolitica PCR Stool Vibrio (PCR) Stl Vibrio cholerae PCR Stl Norovirus GI/GII PCR 06/28/24 10:59 MCV MCH MCHC RDW Plt Count MPV Immature Gran % (Auto) Neut % (Auto) Lymph % (Auto) [place] % (Auto) Eos % (Auto) Baso % (Auto) Lymph # (Auto) [place] # (Auto) Eos # (Auto) Baso # (Auto) Abs Immat Gran (auto) Absolute Neuts (auto) Absolute Nucleated RBC Nucleated RBC % (auto) VBG pH VBG pCO2 VBG pO2 VBG HCO3 VBG O2 Saturation VBG Base Excess Anion Gap Estim Creat Clear Calc Estimated GFR POC Glucose 225 H Random Glucose Calcium Stl C. cayetanensis PCR Stool Rotavirus A PCR Stl Adenov F PCR Stool Astrovirus (PCR) Stool Campylobacter PCR Stool Cryptosporidium PCR Stl Sh Tox Pr E STEC PCR Stool E coli O157 PCR Stl Enterotoxigenic E PCR Stool EPEC (PCR) Stool EAEC (PCR) Stl E. histolytica PCR Stool Giardia Lamblia PCR Stl P. shigelloides PCR Stool Salmonella PCR Stool Sapovirus (PCR) Stl Shigella/EIEC PCR St Y.enterocolitica PCR Stool Vibrio (PCR) Stl Vibrio cholerae PCR Stl Norovirus GI/GII PCR Microbiology Microbiology Results: Microbiology 06/27/24 18:05 Gram Stain - Final Abscess Intra-abdominal Routine Culture - Preliminary No growth to date. Anaerobic Culture - Preliminary Culture in progress. 06/25/24 15:43 Blood Culture - Preliminary Blood - Venous No growth after 48 hours. 06/25/24 14:31 Blood Culture - Preliminary Blood - Venous No growth after 48 hours. Procedures Date of Service Date of Service: 06/29/24 Progress Note: A&P Assessment and plan (1) Perinephric fluid collection: Status: Acute Assessment and Plan: Looks well CHARLENE drains do not show significant pus No feculent material Looks well overall Keep drains in place Anticipate tract between the perinephric abscess and the adjacent colon to close Patient does not seem to have inflammatory process in the colon itself No obvious diverticular disease Explained plan to patient Time Spent With Patient Time: Total time managing care of this patient today ____ minutes. Quality Stroke Does the patient have a stroke diagnosis?: No VTE Prior VTE?: No VTE Risk Level:: Medical - moderate - high VTE Device Contraindication: Treatment Not Indicated VTE Drug Contraindication: N/A - Med Ordered
--- NOTE | 2024-06-28 15:41 | HO.PM.IMPN ---
Subjective Subjective Date of Service: 06/28/24 Interval History: severe sepsis, perinephric abscess/hematoma Review of Systems nausea improving some soarness at [facility] area no fevers Physical Exam Vital Signs: Vital Signs: Last Vital Signs Temp 97.1 F 06/28/24 15:08 Pulse 83 06/28/24 15:08 Resp 18 06/28/24 15:08 BP 151/75 H 06/28/24 15:08 Pulse Ox 96 06/28/24 15:08 O2 Del Method Room Air 06/28/24 15:08 O2 Flow Rate 2 06/27/24 18:45 Oxygen Flow Rate 2 06/25/24 13:00 BMI result Body Mass Index 45.2 Appearance: Alert.? Oriented X3.? cvs: [id number], [id number] , no murmur res: clear to auscultation ,no rhonchii or wheezing abd: no rebound or guarding ,nt, bs present. -Left flank sam drain place -has 2 catheters (small amount of blood tinged fluid) ext pulses present , no cyanosis . neuro: axo3 , nonfocal. Objective Data Active Medications Acetaminophen (Acetaminophen 325 Mg Tablet) 650 mg PO Q6H PRN PRN Reason: Pain, Mild (Pain Scale 1-3), fever or headache Last Admin: 06/26/24 11:15 Dose: 650 mg Documented By: GRACE Calcium Carbonate (Calcium Carbonate 750 Mg Tab.Chew) 750 mg PO Q4H PRN PRN Reason: Heartburn Glucose (Glucose Gel 15 Gm Gel..Gram.) 15 gm PO Q15M PRN; Protocol PRN Reason: per Hypoglycemia Standing Ord. Heparin Sodium (Porcine) (Heparin Sodium,Porcine 5,000 Unit/Ml Vial) 5,000 unit SUBCUT Q12H [facility] Last Admin: 06/28/24 07:51 Dose: 5,000 unit Documented By: CHELLE Sodium Chloride (Ns) 1,000 mls @ 100 mls/hr IVCONT .Q10H [facility] Last Infusion: 06/27/24 11:34 Dose: Infused Documented By: CHELLE Ceftriaxone Sodium 1 gm/ (Sodium Chloride) 50 mls @ 100 mls/hr IV Q24H [facility] Last Infusion: 06/27/24 23:36 Dose: Infused Documented By: SARA Dextrose (D10) 250 mls @ 750 mls/hr IV Q15M PRN; Protocol PRN Reason: per Hypoglycemia Standing Ord. Insulin Human Lispro (Insulin Lispro 100 Unit/Ml 3 Ml Vial) 0 unit SUBCUT QIDACHS [facility]; Protocol Last Admin: 06/28/24 11:21 Dose: 4 unit Documented By: CHELLE Magnesium Hydroxide (Milk Of Magnesia 30 Ml Oral.Susp) 30 ml PO DAILY PRN PRN Reason: Constipation Magnesium Oxide (Magnesium Oxide 400 Mg Tablet) 400 mg PO BIDPC [facility] Last Admin: 06/28/24 07:51 Dose: 400 mg Documented By: CHELLE Meclizine HCl (Meclizine Hcl 25 Mg Tablet) 25 mg PO Q8H PRN PRN Reason: Vertigo Last Admin: 06/27/24 10:27 Dose: 25 mg Documented By: CHELLE Melatonin (Melatonin 3 Mg Tablet) 6 mg PO BEDTIME PRN PRN Reason: Insomnia Metoclopramide HCl (Metoclopramide Hcl 10 Mg/2 Ml Vial) 5 mg IVPUSH Q6H PRN PRN Reason: Nausea and Vomiting Last Admin: 06/27/24 22:30 Dose: 5 mg Documented By: SARA Metronidazole (Metronidazole 500 Mg Tablet) 500 mg PO Q8H [facility] Last Admin: 06/28/24 07:51 Dose: 500 mg Documented By: CHELLE Morphine Sulfate (Morphine Sulfate 2 Mg/Ml Cartridge) 2 mg IVPUSH Q3H PRN; Protocol PRN Reason: Pain, Severe (Pain Scale 7-10) Last Admin: 06/28/24 05:09 Dose: 2 mg Documented By: SARA Ondansetron HCl (Ondansetron Hcl 4 Mg/2 Ml Vial) 4 mg IVPUSH Q8H PRN PRN Reason: Nausea and Vomiting Last Admin: 06/27/24 18:40 Dose: 4 mg Documented By: STACIE Potassium Chloride (Potassium Chloride Er 20 Meq Tab.Er.Prt) 20 meq PO DAILY [facility] Last Admin: 06/28/24 07:51 Dose: 20 meq Documented By: CHELLE Sodium Chloride (0.9 % Sodium Chloride Flush 3 Ml Syringe) [facility] Last Admin: 06/28/24 13:43 Dose: Not Given Documented By: CHELLE Non-Admin Reason: Previously Administered Labs 06/28/24 05:17 06/28/24 05:17 Labs: Laboratory Results - last 24 hr 06/27/24 06/27/24 06/28/24 19:04 Unknown 05:17 MCV 79.5 L MCH 25.3 L MCHC 31.9 RDW 18.7 H Plt Count 317 D MPV 9.7 Immature Gran % (Auto) 0.4 Neut % (Auto) 62.0 Lymph % (Auto) 30.6 Kerr % (Auto) 4.9 Eos % (Auto) 1.8 Baso % (Auto) 0.3 Lymph # (Auto) 2.3 Kerr # (Auto) 0.4 Eos # (Auto) 0.1 Baso # (Auto) 0.0 Abs Immat Gran (auto) 0.03 Absolute Neuts (auto) 4.7 Absolute Nucleated RBC 0.000 Nucleated RBC % (auto) 0.0 VBG pH VBG pCO2 VBG pO2 VBG HCO3 VBG O2 Saturation VBG Base Excess Anion Gap 12 Estim Creat Clear Calc 87.5 Estimated GFR 59 POC Glucose 124 H Random Glucose 155 H Calcium 9.7 D Stl C. cayetanensis PCR Not Detected Stool Rotavirus A PCR Not Detected Stl Adenov F 40/41 PCR Not Detected Stool Astrovirus (PCR) Not Detected Stool Campylobacter PCR Not Detected Stool Cryptosporidium PCR Not Detected Stl Sh Tox Pr E STEC PCR Not Detected Stool E coli O157 PCR Not applicable Stl Enterotoxigenic E PCR Not Detected Stool EPEC (PCR) Not Detected Stool EAEC (PCR) Not Detected Stl E. histolytica PCR Not Detected Stool Giardia Lamblia PCR Not Detected Stl P. shigelloides PCR Not Detected Stool Salmonella PCR Not Detected Stool Sapovirus (PCR) Not Detected Stl Shigella/EIEC PCR Not Detected St Y.enterocolitica PCR Not Detected Stool Vibrio (PCR) Not Detected Stl Vibrio cholerae PCR Not Detected Stl Norovirus GI/GII PCR Not Detected 06/28/24 06/28/24 06/28/24 06:45 06:56 07:12 MCV MCH MCHC RDW Plt Count MPV Immature Gran % (Auto) Neut % (Auto) Lymph % (Auto) Kerr % (Auto) Eos % (Auto) Baso % (Auto) Lymph # (Auto) Kerr # (Auto) Eos # (Auto) Baso # (Auto) Abs Immat Gran (auto) Absolute Neuts (auto) Absolute Nucleated RBC Nucleated RBC % (auto) VBG pH 7.38 VBG pCO2 57 VBG pO2 51 VBG HCO3 34 H VBG O2 Saturation 78.0 VBG Base Excess 7.4 Anion Gap Estim Creat Clear Calc Estimated GFR POC Glucose 151 H 163 H Random Glucose Calcium Stl C. cayetanensis PCR Stool Rotavirus A PCR Stl Adenov F / PCR Stool Astrovirus (PCR) Stool Campylobacter PCR Stool Cryptosporidium PCR Stl Sh Tox Pr E STEC PCR Stool E coli O157 PCR Stl Enterotoxigenic E PCR Stool EPEC (PCR) Stool EAEC (PCR) Stl E. histolytica PCR Stool Giardia Lamblia PCR Stl P. shigelloides PCR Stool Salmonella PCR Stool Sapovirus (PCR) Stl Shigella/EIEC PCR St Y.enterocolitica PCR Stool Vibrio (PCR) Stl Vibrio cholerae PCR Stl Norovirus GI/GII PCR 06/28/24 10:59 MCV MCH MCHC RDW Plt Count MPV Immature Gran % (Auto) Neut % (Auto) Lymph % (Auto) Kerr % (Auto) Eos % (Auto) Baso % (Auto) Lymph # (Auto) Kerr # (Auto) Eos # (Auto) Baso # (Auto) Abs Immat Gran (auto) Absolute Neuts (auto) Absolute Nucleated RBC Nucleated RBC % (auto) VBG pH VBG pCO2 VBG pO2 VBG HCO3 VBG O2 Saturation VBG Base Excess Anion Gap Estim Creat Clear Calc Estimated GFR POC Glucose 225 H Random Glucose Calcium Stl C. cayetanensis PCR Stool Rotavirus A PCR Stl Adenov F PCR Stool Astrovirus (PCR) Stool Campylobacter PCR Stool Cryptosporidium PCR Stl Sh Tox Pr E STEC PCR Stool E coli O157 PCR Stl Enterotoxigenic E PCR Stool EPEC (PCR) Stool EAEC (PCR) Stl E. histolytica PCR Stool Giardia Lamblia PCR Stl P. shigelloides PCR Stool Salmonella PCR Stool Sapovirus (PCR) Stl Shigella/EIEC PCR St Y.enterocolitica PCR Stool Vibrio (PCR) Stl Vibrio cholerae PCR Stl Norovirus GI/GII PCR Microbiology Microbiology Results: Microbiology 06/27/24 18:05 Gram Stain - Final Abscess Intra-abdominal Routine Culture - Preliminary No growth to date. Anaerobic Culture - Preliminary Culture in progress. 06/25/24 15:43 Blood Culture - Preliminary Blood - Venous No growth after 48 hours. 06/25/24 14:31 Blood Culture - Preliminary Blood - Venous No growth after 48 hours. Assessment and Plan (1) Enterocutaneous fistula: Status: Acute (2) Perinephric fluid collection: Status: Acute Plan 53-year-old female with pertinent history of nephrolithiasis, left subscapsular hematoma, [id number] type 2 diabetes mellitus, obesity, hypertension, CAD, asthma not on home oxygen, mixed hyperlipidemia admitted for further management of left perinephric abscess with severe sepsis Acute recurrent left perinephric abscess/hematoma with severe sepsis Sepsis resolved 06/26 CT abdomen pelvis shows small left perinephric fluid and air collection with left retroperitoneal drain terminating lateral to the perinephric collection in the retroperitoneal fat consider repositioning. There is also additional left retroperitoneal fluid collection more superiorly adjacent to the pancreatic tail and in the left splenic hilum . on 06/03 for same s/p IR SAM drain placement, remains in place. Culture grew E coli, Klebsiella, strep viridans sensitive to ceftriaxone. Anaerobic culture grew Bacteroides seen by urology: Urology/general surgery- new drain placed in small collection near spleen, cultures sent. Plan: Blood culture negative at 48 hour, abdominal fluid culture pending continue IV ctx and flagyl (initiated 06/25) follow CBC. 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 surgery following Acute diarrhea gi panel and cdiff pcr negative added immodium Acute nausea/vomiting -possibly r/t infection on arrival, but concern for enteritis/gastroenteritis given coinciding diarrhea -gi panel and cdiff pcr negative nausea /vomiting improved still has diarrhae as above. acute hyponatremia-suspect pseudo hyponatremia in setting of hyperglycemia -resolved acute hypomagnesemia-repleted, initiate 400mg magoxide BID eic-lumotfi-shgkswgle type 2 diabetes -POC glucose, Admelog sliding scale. Advance to diabetic diet hypertension-continue lisinopril class 3 obesity-weight loss efforts DVT prophylaxis-heparin Full code Ongoing inpatient stay required for IV antibiotic treatment due to left perinephric abscess with severe sepsis also requiring expert consultation Quality Stroke Does the patient have a stroke diagnosis?: No VTE Prior VTE?: No VTE Risk Level:: Medical - moderate - high VTE Device Contraindication: Treatment Not Indicated VTE Drug Contraindication: N/A - Med Ordered
[2024-06-28 16:15] LABS: Glucose, Whole Blood 182 mg/dL (60-115)
[2024-06-28] MEDS: Meclizine HCl 25 MG TABLET PO (16:28)
[2024-06-28] MEDS: 0.9 % Sodium Chloride Flush 3 ML SYRINGE IVFLUSH (19:27)
[2024-06-28 19:57] LABS: Glucose, Whole Blood 212 mg/dL (60-115)
[2024-06-28] MEDS: cefTRIAXone sodium 1 GM in 0.9 % Sodium Chloride 50 ML IV (21:28)
[2024-06-29] VITALS (7 sets, daily range): BP systolic 122–146; BP diastolic 71–86; PULSE 82–86; RESP 16–20; TEMP 36.1–36.3; O2SAT 94–96
[2024-06-29] MEDS: Morphine Sulfate 2 MG/ML CARTRIDGE IVPUSH (03:22)
[2024-06-29] MEDS: ondansetron HCL 4 MG/2 ML VIAL IVPUSH (03:26)
[2024-06-29 08:12] LABS: Glucose, Whole Blood 153 mg/dL (60-115)
[2024-06-29] MEDS: Insulin Lispro 100 UNIT/ML 3 ML VIAL SUBCUT ×4 (08:50→21:36)
[2024-06-29] MEDS: Acetaminophen 325 MG TABLET 650 MG PO (08:51)
[2024-06-29] MEDS: Magnesium Oxide 400 MG TABLET PO ×2 (08:52→16:28)
[2024-06-29] MEDS: Potassium Chloride ER 20 MEQ TAB.ER.PRT PO (08:52)
[2024-06-29] MEDS: Metoclopramide HCl 10 MG/2 ML VIAL 5 MG IVPUSH (08:52)
[2024-06-29] MEDS: Heparin Sodium,Porcine 5,000 UNIT/ML VIAL 5000 UNIT SUBCUT ×2 (08:52→21:37)
[2024-06-29] MEDS: metroNIDAZOLE 500 MG TABLET PO ×3 (08:52→23:10)
[2024-06-29] MEDS: 0.9 % Sodium Chloride Flush 3 ML SYRINGE IVFLUSH ×3 (08:56→21:43)
[2024-06-29] MEDS: Meclizine HCl 25 MG TABLET PO (10:00)
[2024-06-29] MEDS: Escitalopram Oxalate 20 MG TABLET PO (10:00)
[2024-06-29] MEDS: Atorvastatin Calcium 20 MG TABLET PO (10:00)
[2024-06-29] MEDS: lisinopriL 20 MG TABLET PO (10:00)
[2024-06-29] MEDS: Montelukast Sodium 10 MG TABLET PO ×2 (10:00→21:35)
--- NOTE | 2024-06-29 11:25 | P.PNGS_ITS ---
Subjective Subjective Date of Service: 06/30/24 Interval history: Sore on drain sites Good oral intake No fever Has BMs Physical Exam 2 Vital Signs: Vital Signs: Last Vital Signs Temp 97.1 F 06/29/24 07:53 Pulse 82 06/29/24 07:53 Resp 16 06/29/24 07:53 BP 137/78 06/29/24 10:00 Pulse Ox 94 06/29/24 07:53 O2 Del Method Room Air 06/29/24 07:53 O2 Flow Rate 2 06/27/24 18:45 Oxygen Flow Rate 2 06/25/24 13:00 BMI result Body Mass Index 45.2 Const: Other: Morbidly obese General: comfortable and no acute distress Resp: Effort & Inspection: normal respiratory effort GI: Other: [address] on the left, both with thick serosanguineous output, no obvious pus, no feculent material Palpation (GI): Soft to palpation, not firm and no guarding Objective Data Active Medications Acetaminophen (Acetaminophen 325 Mg Tablet) 650 mg PO Q6H PRN PRN Reason: Pain, Mild (Pain Scale 1-3), fever or headache Last Admin: 06/29/24 08:51 Dose: 650 mg Documented By: FANTASMA Albuterol Sulfate (Albuterol Sulfate 90 Mcg 8 Gm Inhaler) 2 puff INHALE Q6H PRN PRN Reason: Shortness Of Breath Or Wheezing Atorvastatin Calcium (Atorvastatin Calcium 20 Mg Tablet) 20 mg PO DAILY [facility] Last Admin: 06/29/24 10:00 Dose: 20 mg Documented By: FANTASMA Calcium Carbonate (Calcium Carbonate 750 Mg Tab.Chew) 750 mg PO Q4H PRN PRN Reason: Heartburn Escitalopram Oxalate (Escitalopram Oxalate 20 Mg Tablet) 20 mg PO DAILY [facility] Last Admin: 06/29/24 10:00 Dose: 20 mg Documented By: FANTASMA Fluticasone/Vilanterol (Fluticasone/Vilanterol 200/25 Blst.W.Dev) 1 puff INHALE RDAILY [facility] Glucose (Glucose Gel 15 Gm Gel..Gram.) 15 gm PO Q15M PRN; Protocol PRN Reason: per Hypoglycemia Standing Ord. Heparin Sodium (Porcine) (Heparin Sodium,Porcine 5,000 Unit/Ml Vial) 5,000 unit SUBCUT Q12H [facility] Last Admin: 06/29/24 08:52 Dose: 5,000 unit Documented By: FANTASMA Sodium Chloride (Ns) 1,000 mls @ 100 mls/hr IVCONT .Q10H [facility] Last Infusion: 06/27/24 11:34 Dose: Infused Documented By: CHELLE Ceftriaxone Sodium 1 gm/ (Sodium Chloride) 50 mls @ 100 mls/hr IV Q24H [facility] Last Infusion: 06/28/24 22:10 Dose: Infused Documented By: CASTILM Dextrose (D10) 250 mls @ 750 mls/hr IV Q15M PRN; Protocol PRN Reason: per Hypoglycemia Standing Ord. Insulin Human Lispro (Insulin Lispro 100 Unit/Ml 3 Ml Vial) 0 unit SUBCUT QIDACHS [facility]; Protocol Last Admin: 06/29/24 08:50 Dose: 2 unit Documented By: FANTASMA Lisinopril (Lisinopril 20 Mg Tablet) 20 mg PO DAILY [facility]; Protocol Last Admin: 06/29/24 10:00 Dose: 20 mg Documented By: FANTASMA Loperamide HCl (Loperamide Hcl 2 Mg Capsule) 2 mg PO Q4H PRN PRN Reason: Diarrhea Magnesium Hydroxide (Milk Of Magnesia 30 Ml Oral.Susp) 30 ml PO DAILY PRN PRN Reason: Constipation Magnesium Oxide (Magnesium Oxide 400 Mg Tablet) 400 mg PO BIDPC [facility] Last Admin: 06/29/24 08:52 Dose: 400 mg Documented By: FANTASMA Meclizine HCl (Meclizine Hcl 25 Mg Tablet) 25 mg PO DAILY [facility] Last Admin: 06/29/24 10:00 Dose: 25 mg Documented By: FANTASMA Melatonin (Melatonin 3 Mg Tablet) 6 mg PO BEDTIME PRN PRN Reason: Insomnia Metoclopramide HCl (Metoclopramide Hcl 10 Mg/2 Ml Vial) 5 mg IVPUSH Q6H PRN PRN Reason: Nausea and Vomiting Last Admin: 06/29/24 08:52 Dose: 5 mg Documented By: FANTASMA Metronidazole (Metronidazole 500 Mg Tablet) 500 mg PO Q8H [facility] Last Admin: 06/29/24 08:52 Dose: 500 mg Documented By: FANTASMA Montelukast Sodium (Montelukast Sodium 10 Mg Tablet) 10 mg PO BEDTIME [facility] Last Admin: 06/29/24 10:00 Dose: 10 mg Documented By: FANTASMA Morphine Sulfate (Morphine Sulfate 2 Mg/Ml Cartridge) 2 mg IVPUSH Q3H PRN; Protocol PRN Reason: Pain, Severe (Pain Scale 7-10) Last Admin: 06/29/24 03:22 Dose: 2 mg Documented By: FRANCISCO Non-Formulary Medication (Norethindrone Acetate) 5 mg PO DAILY [facility] Ondansetron HCl (Ondansetron Hcl 4 Mg/2 Ml Vial) 4 mg IVPUSH Q8H PRN PRN Reason: Nausea and Vomiting Last Admin: 06/29/24 03:26 Dose: 4 mg Documented By: FRANCISCO Potassium Chloride (Potassium Chloride Er 20 Meq Tab.Er.Prt) 20 meq PO DAILY [facility] Last Admin: 06/29/24 08:52 Dose: 20 meq Documented By: FANTASMA Sodium Chloride (0.9 % Sodium Chloride Flush 3 Ml Syringe) 3 ml IVFLUSH QSHIFT [facility] Last Admin: 06/29/24 08:56 Dose: 3 ml Documented By: FANTASMA Labs 06/28/24 05:17 06/28/24 05:17 Labs: Laboratory Results - last 24 hr 06/28/24 06/28/24 06/29/24 16:12 19:36 07:37 POC Glucose 182 H 212 H 153 H Microbiology Microbiology Results: Microbiology 06/27/24 18:05 Gram Stain - Final Abscess Intra-abdominal Routine Culture - Preliminary No growth to date. Anaerobic Culture - Preliminary Culture in progress. Procedures Date of Service Date of Service: 06/30/24 Progress Note: A&P Assessment and plan (1) Perinephric fluid collection: Status: Acute Assessment and Plan: Two drains in place now Question of fistulous tract to the colon on the left Would keep the drains in place for now No pus or feculent material from the drains Continue antibiotics I anticipate the fistulous tract to close with treatment of the perinephric abscess Time Spent With Patient Time: Total time managing care of this patient today ____ minutes. Quality Stroke Does the patient have a stroke diagnosis?: No VTE Prior VTE?: No VTE Risk Level:: Medical - moderate - high VTE Device Contraindication: Treatment Not Indicated VTE Drug Contraindication: N/A - Med Ordered
[2024-06-29 11:40] LABS: Glucose, Whole Blood 192 mg/dL (60-115)
--- NOTE | 2024-06-29 14:22 | HO.PM.IMPN ---
Subjective Subjective Date of Service: 06/29/24 Interval History: follow up for perinephric abscess/hematoma Review of Systems nausea improving some soarness at [place] no fevers Physical Exam Vital Signs: Vital Signs: Last Vital Signs Temp 96.9 F 06/29/24 12:00 Pulse 86 06/29/24 12:00 Resp 16 06/29/24 12:00 BP 122/79 06/29/24 12:00 Pulse Ox 95 06/29/24 12:00 O2 Del Method Room Air 06/29/24 12:00 O2 Flow Rate 2 06/27/24 18:45 Oxygen Flow Rate 2 06/25/24 13:00 BMI result Body Mass Index 45.2 Appearance: Alert.? Oriented X3.? cvs: rrr, [id number] , no murmur res: clear to auscultation ,no rhonchii or wheezing abd: no rebound or guarding ,nt, bs present. -Left flank sam drain place -has 2 catheters (small amount of blood tinged fluid) ext pulses present , no cyanosis . neuro: axo3 , nonfocal Objective Data Active Medications Acetaminophen (Acetaminophen 325 Mg Tablet) 650 mg PO Q6H PRN PRN Reason: Pain, Mild (Pain Scale 1-3), fever or headache Last Admin: 06/29/24 08:51 Dose: 650 mg Documented By: FANTASMA Albuterol Sulfate (Albuterol Sulfate 90 Mcg 8 Gm Inhaler) 2 puff INHALE Q6H PRN PRN Reason: Shortness Of Breath Or Wheezing Atorvastatin Calcium (Atorvastatin Calcium 20 Mg Tablet) 20 mg PO DAILY [facility] Last Admin: 06/29/24 10:00 Dose: 20 mg Documented By: FANTASMA Calcium Carbonate (Calcium Carbonate 750 Mg Tab.Chew) 750 mg PO Q4H PRN PRN Reason: Heartburn Escitalopram Oxalate (Escitalopram Oxalate 20 Mg Tablet) 20 mg PO DAILY [facility] Last Admin: 06/29/24 10:00 Dose: 20 mg Documented By: FANTASMA Fluticasone/Vilanterol (Fluticasone/Vilanterol 200/25 Blst.W.Dev) 1 puff INHALE RDAILY [facility] Glucose (Glucose Gel 15 Gm Gel..Gram.) 15 gm PO Q15M PRN; Protocol PRN Reason: per Hypoglycemia Standing Ord. Heparin Sodium (Porcine) (Heparin Sodium,Porcine 5,000 Unit/Ml Vial) 5,000 unit SUBCUT Q12H [facility] Last Admin: 06/29/24 08:52 Dose: 5,000 unit Documented By: FANTASMA Sodium Chloride (Ns) 1,000 mls @ 100 mls/hr IVCONT .Q10H [facility] Last Infusion: 06/27/24 11:34 Dose: Infused Documented By: CHELLE Ceftriaxone Sodium 1 gm/ (Sodium Chloride) 50 mls @ 100 mls/hr IV Q24H [facility] Last Infusion: 06/28/24 22:10 Dose: Infused Documented By: CASTILM Dextrose (D10) 250 mls @ 750 mls/hr IV Q15M PRN; Protocol PRN Reason: per Hypoglycemia Standing Ord. Insulin Human Lispro (Insulin Lispro 100 Unit/Ml 3 Ml Vial) 0 unit SUBCUT QIDACHS [facility]; Protocol Last Admin: 06/29/24 12:15 Dose: 2 unit Documented By: FANTASMA Lisinopril (Lisinopril 20 Mg Tablet) 20 mg PO DAILY [facility]; Protocol Last Admin: 06/29/24 10:00 Dose: 20 mg Documented By: FANTASMA Loperamide HCl (Loperamide Hcl 2 Mg Capsule) 2 mg PO Q4H PRN PRN Reason: Diarrhea Magnesium Hydroxide (Milk Of Magnesia 30 Ml Oral.Susp) 30 ml PO DAILY PRN PRN Reason: Constipation Magnesium Oxide (Magnesium Oxide 400 Mg Tablet) 400 mg PO BIDPC [facility] Last Admin: 06/29/24 08:52 Dose: 400 mg Documented By: FANTASMA Meclizine HCl (Meclizine Hcl 25 Mg Tablet) 25 mg PO DAILY [facility] Last Admin: 06/29/24 10:00 Dose: 25 mg Documented By: FANTASMA Melatonin (Melatonin 3 Mg Tablet) 6 mg PO BEDTIME PRN PRN Reason: Insomnia Metoclopramide HCl (Metoclopramide Hcl 10 Mg/2 Ml Vial) 5 mg IVPUSH Q6H PRN PRN Reason: Nausea and Vomiting Last Admin: 06/29/24 08:52 Dose: 5 mg Documented By: FANTASMA Metronidazole (Metronidazole 500 Mg Tablet) 500 mg PO Q8H [facility] Last Admin: 06/29/24 08:52 Dose: 500 mg Documented By: FANTASMA Montelukast Sodium (Montelukast Sodium 10 Mg Tablet) 10 mg PO BEDTIME [facility] Last Admin: 06/29/24 10:00 Dose: 10 mg Documented By: FANTASMA Morphine Sulfate (Morphine Sulfate 2 Mg/Ml Cartridge) 2 mg IVPUSH Q3H PRN; Protocol PRN Reason: Pain, Severe (Pain Scale 7-10) Last Admin: 06/29/24 03:22 Dose: 2 mg Documented By: FRANCISCO Non-Formulary Medication (Norethindrone Acetate) 5 mg PO DAILY [facility] Ondansetron HCl (Ondansetron Hcl 4 Mg/2 Ml Vial) 4 mg IVPUSH Q8H PRN PRN Reason: Nausea and Vomiting Last Admin: 06/29/24 03:26 Dose: 4 mg Documented By: FRANCISCO Potassium Chloride (Potassium Chloride Er 20 Meq Tab.Er.Prt) 20 meq PO DAILY [facility] Last Admin: 06/29/24 08:52 Dose: 20 meq Documented By: FANTASMA Sodium Chloride (0.9 % Sodium Chloride Flush 3 Ml Syringe) 3 ml IVFLUSH QSHIFT [facility] Last Admin: 06/29/24 08:56 Dose: 3 ml Documented By: FANTASMA Labs 06/28/24 05:17 06/28/24 05:17 Labs: Laboratory Results - last 24 hr 06/28/24 06/28/24 06/29/24 16:12 19:36 07:37 POC Glucose 182 H 212 H 153 H 06/29/24 11:32 POC Glucose 192 H Microbiology Microbiology Results: Microbiology 06/27/24 18:05 Gram Stain - Final Abscess Intra-abdominal Routine Culture - Preliminary No growth to date. Anaerobic Culture - Preliminary Culture in progress. Assessment and Plan (1) Perinephric fluid collection: Status: Acute Assessment and Plan: 53-year-old female with pertinent history of nephrolithiasis, left subscapsular hematoma, [id number] type 2 diabetes mellitus, obesity, hypertension, CAD, asthma not on home oxygen, mixed hyperlipidemia admitted for further management of left perinephric abscess with severe sepsis Acute recurrent left perinephric abscess/hematoma with severe sepsis Sepsis resolved 06/26 CT abdomen pelvis shows small left perinephric fluid and air collection with left retroperitoneal drain terminating lateral to the perinephric collection in the retroperitoneal fat consider repositioning. There is also additional left retroperitoneal fluid collection more superiorly adjacent to the pancreatic tail and in the left splenic hilum . on 06/03 for same s/p IR SAM drain placement, remains in place. Culture grew E coli, Klebsiella, strep viridans sensitive to ceftriaxone. Anaerobic culture grew Bacteroides seen by urology: Urology/general surgery- new drain placed in small collection near spleen, cultures sent. Plan: Blood culture negative at 48 hour, abdominal fluid culture pending continue IV ctx and flagyl (initiated 06/25) follow CBC. 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 surgery following Acute diarrhea gi panel and cdiff pcr negative added immodium Acute nausea/vomiting -possibly r/t infection on arrival, but concern for enteritis/gastroenteritis given coinciding diarrhea -gi panel and cdiff pcr negative nausea /vomiting improved still has diarrhae as above. acute hyponatremia-suspect pseudo hyponatremia in setting of hyperglycemia -resolved acute hypomagnesemia-repleted, initiate 400mg magoxide BID [id number] type 2 diabetes -POC glucose, Admelog sliding scale. Advance to diabetic diet hypertension-continue lisinopril class 3 obesity-weight loss efforts DVT prophylaxis-heparin Full code Ongoing inpatient stay required for IV antibiotic treatment due to left perinephric abscess with severe sepsis also requiring expert consultation Quality Stroke Does the patient have a stroke diagnosis?: No VTE Prior VTE?: No VTE Risk Level:: Medical - moderate - high VTE Device Contraindication: Treatment Not Indicated VTE Drug Contraindication: N/A - Med Ordered
--- NOTE | 2024-06-29 14:46 | P.CDIM_ITS ---
PROVIDER RESPONSE TEXT: To clarify, the appropriate diagnosis supported by the clinical indicators: Acute: resolved QUERY TEXT: PHYSICIAN'S DOCUMENTATION REQUEST Date of Query: 06/29/2024 07:56 AM EDT Patient Name: Gabriela Fernández Admit Date: 06/25/2024 Dear Paul Soto MD, A review of the medical record indicates additional documentation may be needed. Please review below and update the documentation accordingly. Clinical Indicators: Progress note 06/26 - Plan: WBC 12.2 Tachycardia 103, Tachypnea 23 at 0910 this morning with lactic aci dosis 3.3 at 1339, repeat wnl. Clarify which of the following accurately represents the acuity of the Lactic acidosis: Acute resolved, possible, probable, suspected etc. Chronic Other (explain) Clinically unable to determine (explain) Thank you, Carmencita Copeland, CCS, CDIS Use of terms such as suspected, likely, concern for, or probable (associated with a specific diagnosi s that is being evaluated, monitored, or treated as if it exists) are acceptable and can be coded in the inpatient se tting, when documented at the time of discharge. Please use your independent medical judgment in providing your response. THIS QUERY IS PART OF THE PERMANENT MEDICAL RECORD
[2024-06-29 15:51] LABS: Glucose, Whole Blood 160 mg/dL (60-115)
[2024-06-29 20:55] LABS: Glucose, Whole Blood 242 mg/dL (60-115)
[2024-06-29] MEDS: cefTRIAXone sodium 1 GM in 0.9 % Sodium Chloride 50 ML IV (21:37)
[2024-06-30] VITALS (7 sets, daily range): BP systolic 131–167; BP diastolic 72–86; PULSE 79–88; RESP 16–18; TEMP 36–36.6; O2SAT 93–97
--- NOTE | 2024-06-30 00:22 | P.CNID_ITS ---
History of Present Illness Data of Consult Service Date: 06/29/24 Requesting physician: Paul Soto Primary Care Provider: Eva Galarza MD HPI Reason for consult: perinephric fluid collection She presents with left flank pain 07/02 as well as fever and chills at home. She has had stent placed for nephrolithiasis. I saw her in hospital and she had E coli, Klebiella pneumonia and viridans all sensitive to Cephalosporin. Now she had stent removed 06/21 and worsening pain. Review of Systems 2 Review of Systems: Yes all other systems are reviewed and are negative [facility] Past Medical History Medical History Hematoma of kidney Perinephric hematoma Asthma Benign paroxysmal positional vertigo Obesity Cataract CKD (chronic kidney disease) Depression HLD (hyperlipidemia) Diabetes HTN (hypertension) Sleep apnea History of kidney stones History of in vitro fertilization Family History Family History Father Cancer Mother Epilepsia Dementia Brother Drug abuse Bipolar 1 disorder Son No problems noted. Family history: reviewed and not pertinent Surgical History Surgical History H/O breast biopsy History of ureteroscopy Hx of ectopic History of open heart surgery Social History Social History Household Members: Spouse and Children Housing: House Do you presently have visiting nurse or other home services: No Alcohol intake: never Comment: pt refused red socks Patient Tobacco Use Status: Never used Tobacco Smoked in Last 30 Days: No Use of substances other than those prescribed or required for medical reasons: No Currently Displaying Signs/Symptoms of Drug Intoxication Withdrawal: No Have you been hit, kicked, punched, or otherwise hurt by someone within the past year? If so, by whom?: No Do you feel safe in your current relationship?: Yes Is there a partner from a previous relationship who is making you feel unsafe now?: No Are you made to feel afraid or neglected: No Advance Directives: Yes Advance Directives on File: Yes Advance Directives Date on File: 04/12/24 Do you have a plan to hurt others: No Plan Recently lost weight without trying: No How much weight loss: Not applicable Eating poorly because of decreased appetite: No Nutrition screen score: 0 Nutrition Risks: No Nutritional Risk Patient : No : No Poor oral hygiene: No service: No Meds Allergies Allergy/AdvReac Type Severity Reaction Status Date / Time sulfamethoxazole Allergy Mild Hives Verified 06/25/24 13:05 [From Bactrim] trimethoprim [From Bactrim] Allergy Unknown Anaphylaxis Verified 06/25/24 13:05 oxycodone AdvReac Intermediate Flushing Verified 06/27/24 23:36 FISH Allergy Unknown Anaphylaxis Uncoded 06/25/24 13:05 Active Medications: Current Medications Acetaminophen (Acetaminophen 325 Mg Tablet) 650 mg PO Q6H PRN PRN Reason: Pain, Mild (Pain Scale 1-3), fever or headache Last Admin: 06/29/24 08:51 Dose: 650 mg Albuterol Sulfate (Albuterol Sulfate 90 Mcg 8 Gm Inhaler) 2 puff INHALE Q6H PRN PRN Reason: Shortness Of Breath Or Wheezing Atorvastatin Calcium (Atorvastatin Calcium 20 Mg Tablet) 20 mg PO DAILY [facility] Last Admin: 06/29/24 10:00 Dose: 20 mg Calcium Carbonate (Calcium Carbonate 750 Mg Tab.Chew) 750 mg PO Q4H PRN PRN Reason: Heartburn Escitalopram Oxalate (Escitalopram Oxalate 20 Mg Tablet) 20 mg PO DAILY [facility] Last Admin: 06/29/24 10:00 Dose: 20 mg Fluticasone/Vilanterol (Fluticasone/Vilanterol 200/25 Blst.W.Dev) 1 puff INHALE RDAILY [facility] Glucose (Glucose Gel 15 Gm Gel..Gram.) 15 gm PO Q15M PRN; Protocol PRN Reason: per Hypoglycemia Standing Ord. Heparin Sodium (Porcine) (Heparin Sodium,Porcine 5,000 Unit/Ml Vial) 5,000 unit SUBCUT Q12H [facility] Last Admin: 06/29/24 21:37 Dose: 5,000 unit Sodium Chloride (Ns) 1,000 mls @ 100 mls/hr IVCONT .Q10H [facility] Last Infusion: 06/27/24 11:34 Dose: Infused Ceftriaxone Sodium 1 gm/ (Sodium Chloride) 50 mls @ 100 mls/hr IV Q24H [facility] Last Infusion: 06/29/24 22:46 Dose: Infused Dextrose (D10) 250 mls @ 750 mls/hr IV Q15M PRN; Protocol PRN Reason: per Hypoglycemia Standing Ord. Insulin Human Lispro (Insulin Lispro 100 Unit/Ml 3 Ml Vial) 0 unit SUBCUT QIDACHS [facility]; Protocol Last Admin: 06/29/24 21:36 Dose: 4 unit Lisinopril (Lisinopril 20 Mg Tablet) 20 mg PO DAILY [facility]; Protocol Last Admin: 06/29/24 10:00 Dose: 20 mg Loperamide HCl (Loperamide Hcl 2 Mg Capsule) 2 mg PO Q4H PRN PRN Reason: Diarrhea Magnesium Hydroxide (Milk Of Magnesia 30 Ml Oral.Susp) 30 ml PO DAILY PRN PRN Reason: Constipation Magnesium Oxide (Magnesium Oxide 400 Mg Tablet) 400 mg PO BIDPC [facility] Last Admin: 06/29/24 16:28 Dose: 400 mg Meclizine HCl (Meclizine Hcl 25 Mg Tablet) 25 mg PO DAILY [facility] Last Admin: 06/29/24 10:00 Dose: 25 mg Melatonin (Melatonin 3 Mg Tablet) 6 mg PO BEDTIME PRN PRN Reason: Insomnia Metoclopramide HCl (Metoclopramide Hcl 10 Mg/2 Ml Vial) 5 mg IVPUSH Q6H PRN PRN Reason: Nausea and Vomiting Last Admin: 06/29/24 08:52 Dose: 5 mg Metronidazole (Metronidazole 500 Mg Tablet) 500 mg PO Q8H [facility] Last Admin: 06/29/24 23:10 Dose: 500 mg Montelukast Sodium (Montelukast Sodium 10 Mg Tablet) 10 mg PO BEDTIME [facility] Last Admin: 06/29/24 21:35 Dose: 10 mg Morphine Sulfate (Morphine Sulfate 2 Mg/Ml Cartridge) 2 mg IVPUSH Q3H PRN; Protocol PRN Reason: Pain, Severe (Pain Scale 7-10) Last Admin: 06/29/24 03:22 Dose: 2 mg Non-Formulary Medication (Norethindrone Acetate) 5 mg PO DAILY [facility] Ondansetron HCl (Ondansetron Hcl 4 Mg/2 Ml Vial) 4 mg IVPUSH Q8H PRN PRN Reason: Nausea and Vomiting Last Admin: 06/29/24 03:26 Dose: 4 mg Potassium Chloride (Potassium Chloride Er 20 Meq Tab.Er.Prt) 20 meq PO DAILY [facility] Last Admin: 06/29/24 08:52 Dose: 20 meq Sodium Chloride (0.9 % Sodium Chloride Flush 3 Ml Syringe) 3 ml IVFLUSH QSHIFT [facility] Last Admin: 06/29/24 21:43 Dose: 3 ml Home Medications ?Medication ?Instructions ?Recorded ?Confirmed ?Last Taken ?Type albuterol sulfate 90 mcg/actuation 2 puff inhalation Q6H PRN 09/17/23 06/25/24 Unknown History aerosol inhaler (Ventolin HFA) Shortness Of Breath Or Wheezing citalopram 40 mg tablet 40 mg PO DAILY 09/17/23 06/25/24 04/05/24 History lisinopril 20 mg tablet 20 mg PO DAILY 09/17/23 06/25/24 04/05/24 History meclizine 25 mg tablet 25 mg PO DAILY Vertigo 09/17/23 06/25/24 04/05/24 History simvastatin 40 mg tablet 40 mg PO BEDTIME 09/17/23 06/25/24 04/05/24 History tirzepatide 7.5 mg/0.5 mL 7.5 mg subcut WE@0900 03/02/24 06/25/24 05/16/24 History subcutaneous pen injector (Mounjaro) budesonide-formoterol HFA 160 2 puff inhalation BID 05/24/24 06/25/24 Unknown History mcg-4.5 mcg/actuation aerosol inhaler (Symbicort) montelukast 10 mg tablet 10 mg PO BEDTIME 05/24/24 06/25/24 Unknown History norethindrone acetate 5 mg tablet 5 mg PO DAILY 05/24/24 06/25/24 Unknown History Physical Exam 2 Vital Signs: Vital Signs: Last Vital Signs Temp 96.9 F 06/29/24 23:36 Pulse 84 06/29/24 23:36 Resp 16 06/29/24 23:36 BP 132/74 06/29/24 23:36 Pulse Ox 95 06/29/24 23:36 O2 Del Method Room Air 06/29/24 23:36 O2 Flow Rate 2 06/27/24 18:45 Oxygen Flow Rate 2 06/25/24 13:00 BMI result Body Mass Index 45.2 Skin: Other: left flank pain Results Labs 06/28/24 05:17 06/28/24 05:17 Microbiology Microbiology Results: Microbiology 06/27/24 18:05 Abscess Intra-abdominal Gram Stain - Final 06/27/24 18:05 Abscess Intra-abdominal Routine Culture - Preliminary No growth to date. 06/27/24 18:05 Abscess Intra-abdominal Anaerobic Culture - Preliminary Culture in progress. 06/25/24 15:43 Blood - Venous Blood Culture - Preliminary No growth after 48 hours. 06/25/24 14:31 Blood - Venous Blood Culture - Preliminary No growth after 48 hours. Assessment and Plan (1) Enterocutaneous fistula: Status: Acute (2) Perinephric fluid collection: Status: Acute (3) Retroperitoneal fluid collection: Status: Acute (4) Perinephric abscess: Status: Acute Plan She has likely E coli or other organism She is seeing Urology Continue Ceftriaxone. Can stop flagyl doubt HIV risk Change to po Ceftin when improved if sensitive for 14 day total.
[2024-06-30] MEDS: Morphine Sulfate 2 MG/ML CARTRIDGE IVPUSH ×2 (04:04→12:58)
--- NOTE | 2024-06-30 06:07 | PC.NURSE ---
sam drains 5 ml each overnight drained
[2024-06-30 07:46] LABS: Glucose, Whole Blood 189 mg/dL (60-115)
[2024-06-30] MEDS: Insulin Lispro 100 UNIT/ML 3 ML VIAL SUBCUT ×4 (08:17→21:51)
[2024-06-30] MEDS: Meclizine HCl 25 MG TABLET PO (08:18)
[2024-06-30] MEDS: lisinopriL 20 MG TABLET PO (08:18)
[2024-06-30] MEDS: Heparin Sodium,Porcine 5,000 UNIT/ML VIAL 5000 UNIT SUBCUT ×2 (08:18→19:44)
[2024-06-30] MEDS: 0.9 % Sodium Chloride Flush 3 ML SYRINGE IVFLUSH ×3 (08:18→23:43)
[2024-06-30] MEDS: Atorvastatin Calcium 20 MG TABLET PO (08:18)
[2024-06-30] MEDS: Magnesium Oxide 400 MG TABLET PO ×2 (08:18→16:56)
[2024-06-30] MEDS: Potassium Chloride ER 20 MEQ TAB.ER.PRT PO (08:18)
[2024-06-30] MEDS: Escitalopram Oxalate 20 MG TABLET PO (08:18)
--- NOTE | 2024-06-30 08:18 | P.PNGS_ITS ---
Subjective Subjective Date of Service: 07/02/24 Interval history: Events reported Had some pain on the drain site this morning Good GI function Says she has been ambulating Physical Exam 2 Vital Signs: Vital Signs: Last Vital Signs Temp 97.1 F 06/30/24 07:57 Pulse 80 06/30/24 07:57 Resp 18 06/30/24 07:57 BP 136/72 06/30/24 07:57 Pulse Ox 97 06/30/24 07:57 O2 Del Method Room Air 06/30/24 07:57 O2 Flow Rate 2 06/27/24 18:45 Oxygen Flow Rate 2 06/25/24 13:00 BMI result Body Mass Index 45.2 Const: General: comfortable and no acute distress Resp: Effort & Inspection: normal respiratory effort Cardio: Rate: regular rate GI: Other: Drains in place - new drain with scanty thick serosanguineous output; all her drain with thicker bloody output not grossly pus Palpation (GI): Soft to palpation and not firm Objective Data Active Medications Acetaminophen (Acetaminophen 325 Mg Tablet) 650 mg PO Q6H PRN PRN Reason: Pain, Mild (Pain Scale 1-3), fever or headache Last Admin: 06/29/24 08:51 Dose: 650 mg Documented By: FANTASMA Albuterol Sulfate (Albuterol Sulfate 90 Mcg 8 Gm Inhaler) 2 puff INHALE Q6H PRN PRN Reason: Shortness Of Breath Or Wheezing Atorvastatin Calcium (Atorvastatin Calcium 20 Mg Tablet) 20 mg PO DAILY [facility] Last Admin: 06/29/24 10:00 Dose: 20 mg Documented By: FANTASMA Calcium Carbonate (Calcium Carbonate 750 Mg Tab.Chew) 750 mg PO Q4H PRN PRN Reason: Heartburn Escitalopram Oxalate (Escitalopram Oxalate 20 Mg Tablet) 20 mg PO DAILY [facility] Last Admin: 06/29/24 10:00 Dose: 20 mg Documented By: FANTASMA Fluticasone/Vilanterol (Fluticasone/Vilanterol 200/25 Blst.W.Dev) 1 puff INHALE RDAILY [facility] Glucose (Glucose Gel 15 Gm Gel..Gram.) 15 gm PO Q15M PRN; Protocol PRN Reason: per Hypoglycemia Standing Ord. Heparin Sodium (Porcine) (Heparin Sodium,Porcine 5,000 Unit/Ml Vial) 5,000 unit SUBCUT Q12H [facility] Last Admin: 06/29/24 21:37 Dose: 5,000 unit Documented By: PAUL Sodium Chloride (Ns) 1,000 mls @ 100 mls/hr IVCONT .Q10H [facility] Last Infusion: 06/27/24 11:34 Dose: Infused Documented By: CHELLE Ceftriaxone Sodium 1 gm/ (Sodium Chloride) 50 mls @ 100 mls/hr IV Q24H [facility] Last Infusion: 06/29/24 22:46 Dose: Infused Documented By: PAUL Dextrose (D10) 250 mls @ 750 mls/hr IV Q15M PRN; Protocol PRN Reason: per Hypoglycemia Standing Ord. Insulin Human Lispro (Insulin Lispro 100 Unit/Ml 3 Ml Vial) 0 unit SUBCUT QIDACHS [facility]; Protocol Last Admin: 06/29/24 21:36 Dose: 4 unit Documented By: PAUL Lisinopril (Lisinopril 20 Mg Tablet) 20 mg PO DAILY [facility]; Protocol Last Admin: 06/29/24 10:00 Dose: 20 mg Documented By: FANTASMA Loperamide HCl (Loperamide Hcl 2 Mg Capsule) 2 mg PO Q4H PRN PRN Reason: Diarrhea Magnesium Hydroxide (Milk Of Magnesia 30 Ml Oral.Susp) 30 ml PO DAILY PRN PRN Reason: Constipation Magnesium Oxide (Magnesium Oxide 400 Mg Tablet) 400 mg PO BIDPC [facility] Last Admin: 06/29/24 16:28 Dose: 400 mg Documented By: FANTASMA Meclizine HCl (Meclizine Hcl 25 Mg Tablet) 25 mg PO DAILY [facility] Last Admin: 06/29/24 10:00 Dose: 25 mg Documented By: FANTASMA Melatonin (Melatonin 3 Mg Tablet) 6 mg PO BEDTIME PRN PRN Reason: Insomnia Metoclopramide HCl (Metoclopramide Hcl 10 Mg/2 Ml Vial) 5 mg IVPUSH Q6H PRN PRN Reason: Nausea and Vomiting Last Admin: 06/29/24 08:52 Dose: 5 mg Documented By: FANTASMA Montelukast Sodium (Montelukast Sodium 10 Mg Tablet) 10 mg PO BEDTIME [facility] Last Admin: 06/29/24 21:35 Dose: 10 mg Documented By: PAUL Morphine Sulfate (Morphine Sulfate 2 Mg/Ml Cartridge) 2 mg IVPUSH Q3H PRN; Protocol PRN Reason: Pain, Severe (Pain Scale 7-10) Last Admin: 06/30/24 04:04 Dose: 2 mg Documented By: PAUL Non-Formulary Medication (Norethindrone Acetate) 5 mg PO DAILY [facility] Ondansetron HCl (Ondansetron Hcl 4 Mg/2 Ml Vial) 4 mg IVPUSH Q8H PRN PRN Reason: Nausea and Vomiting Last Admin: 06/29/24 03:26 Dose: 4 mg Documented By: FRANCISCO Potassium Chloride (Potassium Chloride Er 20 Meq Tab.Er.Prt) 20 meq PO DAILY [facility] Last Admin: 06/29/24 08:52 Dose: 20 meq Documented By: FANTASMA Sodium Chloride (0.9 % Sodium Chloride Flush 3 Ml Syringe) 3 ml IVFLUSH QSHIFT [facility] Last Admin: 06/29/24 21:43 Dose: 3 ml Documented By: PAUL Labs 06/28/24 05:17 06/28/24 05:17 Labs: Laboratory Results - last 24 hr 06/29/24 06/29/24 06/29/24 11:32 15:44 20:47 POC Glucose 192 H 160 H 242 H 06/30/24 07:42 POC Glucose 189 H Microbiology Microbiology Results: Microbiology 06/27/24 18:05 Gram Stain - Final Abscess Intra-abdominal Routine Culture - Final No growth. Anaerobic Culture - Preliminary No growth to date. Procedures Date of Service Date of Service: 07/02/24 Progress Note: A&P Assessment and plan (1) Perinephric fluid collection: Status: Acute Assessment and Plan: Drains in place Minimal output from both drains Plan to DC the newer drain to the area next to the spleen We will keep the drain to the perinephric abscess in place - hopefully the tract to the colon we will resolve with the drain Continue antibiotics Patient clinically looks well Time Spent With Patient Time: Total time managing care of this patient today ____ minutes. Quality Stroke Does the patient have a stroke diagnosis?: No VTE Prior VTE?: No VTE Risk Level:: Medical - moderate - high VTE Device Contraindication: Treatment Not Indicated VTE Drug Contraindication: N/A - Med Ordered
--- NOTE | 2024-06-30 09:05 | P.CDIM_ITS ---
PROVIDER RESPONSE TEXT: To clarify, the appropriate diagnosis supported by the clinical indicators: CKD, please provide stage: possible ckd 3 QUERY TEXT: PHYSICIAN'S DOCUMENTATION REQUEST Date of Query: 06/29/2024 07:59 AM EDT Patient Name: Gabriela Fernández Admit Date: 06/25/2024 Dear Paul Soto MD, A review of the medical record indicates additional documentation may be needed. Please review below and update the documentation accordingly. Clinical Indicators: H&P 06/25 - PMH - Chronic kidney disease Progress note within the PMH: Chronic kidney disease Please clarify which of the following accurately represents the patient's renal stage, if known: CKD, please provide stage 1, 2, 3, 3a, 3b, 4 ESRD - CKD V now requiring permanent dialysis and/or transplant Other (explain) Clinically unable to determine (explain) Thank you, Carmencita Copeland, CCS, CDIS Use of terms such as suspected, likely, concern for, or probable (associated with a specific diagnosi s that is being evaluated, monitored, or treated as if it exists) are acceptable and can be coded in the inpatient se tting, when documented at the time of discharge. Please use your independent medical judgment in providing your response. THIS QUERY IS PART OF THE PERMANENT MEDICAL RECORD
[2024-06-30 11:11] LABS: Glucose, Whole Blood 320 mg/dL (60-115)
[2024-06-30] MEDS: Fluticasone/Vilanterol 200/25 BLST.W.DEV 1 PUFF INHALE (11:13)
--- NOTE | 2024-06-30 14:46 | HO.PM.IMPN ---
Subjective Subjective Date of Service: 06/30/24 Interval History: follow up for perinephric abscess/hematoma Review of Systems Denies any nausea vomiting or abdominal pain Has some soreness in the drain area. Physical Exam Vital Signs: Vital Signs: Last Vital Signs Temp 96.8 F 06/30/24 12:00 Pulse 88 06/30/24 12:00 Resp 16 06/30/24 12:00 BP 167/77 H 06/30/24 12:00 Pulse Ox 96 06/30/24 12:00 O2 Del Method Room Air 06/30/24 12:00 O2 Flow Rate 2 06/27/24 18:45 Oxygen Flow Rate 2 06/25/24 13:00 BMI result Body Mass Index 45.2 Appearance: Alert.? Oriented X3.? cvs: [id number], [id number] , no murmur res: clear to auscultation ,no rhonchii or wheezing abd: no rebound or guarding ,nt, bs present. -Left flank sam drain place -has 2 catheters (small amount of blood tinged fluid) ext pulses present , no cyanosis . neuro: axo3 , nonfocal Objective Data Active Medications Acetaminophen (Acetaminophen 325 Mg Tablet) 650 mg PO Q6H PRN PRN Reason: Pain, Mild (Pain Scale 1-3), fever or headache Last Admin: 06/29/24 08:51 Dose: 650 mg Documented By: FANTASMA Albuterol Sulfate (Albuterol Sulfate 90 Mcg 8 Gm Inhaler) 2 puff INHALE Q6H PRN PRN Reason: Shortness Of Breath Or Wheezing Atorvastatin Calcium (Atorvastatin Calcium 20 Mg Tablet) 20 mg PO DAILY [facility] Last Admin: 06/30/24 08:18 Dose: 20 mg Documented By: LILI Calcium Carbonate (Calcium Carbonate 750 Mg Tab.Chew) 750 mg PO Q4H PRN PRN Reason: Heartburn Escitalopram Oxalate (Escitalopram Oxalate 20 Mg Tablet) 20 mg PO DAILY [facility] Last Admin: 06/30/24 08:18 Dose: 20 mg Documented By: LILI Fluticasone/Vilanterol (Fluticasone/Vilanterol 200/25 Blst.W.Dev) 1 puff INHALE RDAILY [facility] Last Admin: 06/30/24 11:13 Dose: 1 puff Documented By: ALBAN Glucose (Glucose Gel 15 Gm Gel..Gram.) 15 gm PO Q15M PRN; Protocol PRN Reason: per Hypoglycemia Standing Ord. Heparin Sodium (Porcine) (Heparin Sodium,Porcine 5,000 Unit/Ml Vial) 5,000 unit SUBCUT Q12H [facility] Last Admin: 06/30/24 08:18 Dose: 5,000 unit Documented By: LILI Sodium Chloride (Ns) 1,000 mls @ 100 mls/hr IVCONT .Q10H [facility] Last Infusion: 06/27/24 11:34 Dose: Infused Documented By: CHELLE Ceftriaxone Sodium 1 gm/ (Sodium Chloride) 50 mls @ 100 mls/hr IV Q24H [facility] Last Infusion: 06/29/24 22:46 Dose: Infused Documented By: PAUL Dextrose (D10) 250 mls @ 750 mls/hr IV Q15M PRN; Protocol PRN Reason: per Hypoglycemia Standing Ord. Insulin Human Lispro (Insulin Lispro 100 Unit/Ml 3 Ml Vial) 0 unit SUBCUT QIDACHS [facility]; Protocol Last Admin: 06/30/24 12:02 Dose: 8 unit Documented By: LILI Lisinopril (Lisinopril 20 Mg Tablet) 20 mg PO DAILY [facility]; Protocol Last Admin: 06/30/24 08:18 Dose: 20 mg Documented By: LILI Loperamide HCl (Loperamide Hcl 2 Mg Capsule) 2 mg PO Q4H PRN PRN Reason: Diarrhea Magnesium Hydroxide (Milk Of Magnesia 30 Ml Oral.Susp) 30 ml PO DAILY PRN PRN Reason: Constipation Magnesium Oxide (Magnesium Oxide 400 Mg Tablet) 400 mg PO BIDPC [facility] Last Admin: 06/30/24 08:18 Dose: 400 mg Documented By: LILI Meclizine HCl (Meclizine Hcl 25 Mg Tablet) 25 mg PO DAILY [facility] Last Admin: 06/30/24 08:18 Dose: 25 mg Documented By: LILI Melatonin (Melatonin 3 Mg Tablet) 6 mg PO BEDTIME PRN PRN Reason: Insomnia Metoclopramide HCl (Metoclopramide Hcl 10 Mg/2 Ml Vial) 5 mg IVPUSH Q6H PRN PRN Reason: Nausea and Vomiting Last Admin: 06/29/24 08:52 Dose: 5 mg Documented By: FANTASMA Montelukast Sodium (Montelukast Sodium 10 Mg Tablet) 10 mg PO BEDTIME [facility] Last Admin: 06/29/24 21:35 Dose: 10 mg Documented By: PAUL Morphine Sulfate (Morphine Sulfate 2 Mg/Ml Cartridge) 2 mg IVPUSH Q3H PRN; Protocol PRN Reason: Pain, Severe (Pain Scale 7-10) Last Admin: 06/30/24 12:58 Dose: 2 mg Documented By: FOGARTB Non-Formulary Medication (Norethindrone Acetate) 5 mg PO DAILY [facility] Ondansetron HCl (Ondansetron Hcl 4 Mg/2 Ml Vial) 4 mg IVPUSH Q8H PRN PRN Reason: Nausea and Vomiting Last Admin: 06/29/24 03:26 Dose: 4 mg Documented By: CASTILBrent Potassium Chloride (Potassium Chloride Er 20 Meq Tab.Er.Prt) 20 meq PO DAILY [facility] Last Admin: 06/30/24 08:18 Dose: 20 meq Documented By: LILI Sodium Chloride (0.9 % Sodium Chloride Flush 3 Ml Syringe) 3 ml IVFLUSH QSHIFT [facility] Last Admin: 06/30/24 08:18 Dose: 3 ml Documented By: LILI Labs 06/28/24 05:17 06/28/24 05:17 Labs: Laboratory Results - last 24 hr 06/29/24 06/29/24 06/30/24 15:44 20:47 07:42 POC Glucose 160 H 242 H 189 H 06/30/24 11:07 POC Glucose 320 H Microbiology Microbiology Results: Microbiology 06/27/24 18:05 Gram Stain - Final Abscess Intra-abdominal Routine Culture - Final No growth. Anaerobic Culture - Preliminary No growth to date. Assessment and Plan (1) Perinephric fluid collection: Status: Acute Assessment and Plan: 53-year-old female with pertinent history of nephrolithiasis, left subscapsular hematoma, [id number] type 2 diabetes mellitus, obesity, hypertension, CAD, asthma not on home oxygen, mixed hyperlipidemia admitted for further management of left perinephric abscess with severe sepsis Acute recurrent left perinephric abscess/hematoma with severe sepsis Sepsis resolved 06/26 CT abdomen pelvis shows small left perinephric fluid and air collection with left retroperitoneal drain terminating lateral to the perinephric collection in the retroperitoneal fat consider repositioning. There is also additional left retroperitoneal fluid collection more superiorly adjacent to the pancreatic tail and in the left splenic hilum . on 06/03 for same s/p IR SAM drain placement, remains in place. Culture grew E coli, Klebsiella, strep viridans sensitive to ceftriaxone. Anaerobic culture grew Bacteroides seen by urology: Urology/general surgery- new drain placed in small collection near spleen, cultures sent. Plan: Blood culture negative at 48 hour, abdominal fluid culture pending continue IV ctx and flagyl (initiated 06/25) follow CBC. 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 surgery following Acute diarrhea gi panel and cdiff pcr negative added immodium Acute nausea/vomiting-possibly r/t infection on arrival, but concern for enteritis/gastroenteritis given coinciding diarrhea gi panel and cdiff pcr negative nausea /vomiting improved still has diarrhae as above. acute hyponatremia-suspect pseudo hyponatremia in setting of hyperglycemia -resolved acute hypomagnesemia-repleted, initiate 400mg magoxide BID [id number] type 2 diabetes -POC glucose, Admelog sliding scale. Advance to diabetic diet hypertension-continue lisinopril class 3 obesity-weight loss efforts DVT prophylaxis-heparin Full code Ongoing inpatient stay required for IV antibiotic treatment due to left perinephric abscess with severe sepsis also requiring expert consultation Quality Stroke Does the patient have a stroke diagnosis?: No VTE Prior VTE?: No VTE Risk Level:: Medical - moderate - high VTE Device Contraindication: Treatment Not Indicated VTE Drug Contraindication: N/A - Med Ordered
[2024-06-30 16:30] LABS: Glucose, Whole Blood 169 mg/dL (60-115)
[2024-06-30 19:39] LABS: Glucose, Whole Blood 237 mg/dL (60-115)
[2024-06-30] MEDS: Montelukast Sodium 10 MG TABLET PO (21:51)
[2024-06-30] MEDS: cefTRIAXone sodium 1 GM in 0.9 % Sodium Chloride 50 ML IV (21:54)
[2024-07-01 04:00] VITALS: RESP 18
[2024-07-01 07:32] LABS: Glucose, Whole Blood 173 mg/dL (60-115)
[2024-07-01 07:47] VITALS: BP 132/75; PULSE 83; RESP 18; TEMP 36.2; O2SAT 99
[2024-07-01] MEDS: Fluticasone/Vilanterol 200/25 BLST.W.DEV 1 PUFF INHALE (07:56)
[2024-07-01 07:57] VITALS: PULSE 83; RESP 17; O2SAT 99
[2024-07-01] MEDS: Heparin Sodium,Porcine 5,000 UNIT/ML VIAL 5000 UNIT SUBCUT ×2 (07:58→22:44)
[2024-07-01] MEDS: lisinopriL 20 MG TABLET PO (07:58)
[2024-07-01] MEDS: Insulin Lispro 100 UNIT/ML 3 ML VIAL SUBCUT ×4 (07:58→22:44)
[2024-07-01] MEDS: Atorvastatin Calcium 20 MG TABLET PO (07:59)
[2024-07-01] MEDS: Meclizine HCl 25 MG TABLET PO (07:59)
[2024-07-01] MEDS: 0.9 % Sodium Chloride Flush 3 ML SYRINGE IVFLUSH ×3 (07:59→22:43)
[2024-07-01] MEDS: Escitalopram Oxalate 20 MG TABLET PO (07:59)
[2024-07-01] MEDS: Potassium Chloride ER 20 MEQ TAB.ER.PRT PO (07:59)
[2024-07-01] MEDS: Magnesium Oxide 400 MG TABLET PO ×2 (07:59→17:00)
--- NOTE | 2024-07-01 10:13 | P.PNGS_ITS ---
Subjective Subjective Date of Service: 07/01/24 Interval history: Denies new complaints Describes itching on the drain sites Tolerating diet well Physical Exam 2 Vital Signs: Vital Signs: Last Vital Signs Temp 97.1 F 07/01/24 07:47 Pulse 83 07/01/24 07:57 Resp 17 07/01/24 07:57 BP 132/75 07/01/24 07:47 Pulse Ox 99 07/01/24 07:47 O2 Del Method Room Air 07/01/24 07:47 O2 Flow Rate 2 06/27/24 18:45 Oxygen Flow Rate 2 06/25/24 13:00 BMI result Body Mass Index 45.2 Const: Other: Ambulating General: comfortable and no acute distress Resp: Effort & Inspection: normal respiratory effort Cardio: Rate: regular rate GI: Other: Morbidly obese Both CHARLENE drains left side with very minimal serosanguineous output, less on the upper drain which was a new drain, no obvious pus Palpation (GI): Soft to palpation, not firm, nontender and no guarding Objective Data Active Medications Acetaminophen (Acetaminophen 325 Mg Tablet) 650 mg PO Q6H PRN PRN Reason: Pain, Mild (Pain Scale 1-3), fever or headache Last Admin: 06/29/24 08:51 Dose: 650 mg Documented By: FANTASMA Albuterol Sulfate (Albuterol Sulfate 90 Mcg 8 Gm Inhaler) 2 puff INHALE Q6H PRN PRN Reason: Shortness Of Breath Or Wheezing Atorvastatin Calcium (Atorvastatin Calcium 20 Mg Tablet) 20 mg PO DAILY [facility] Last Admin: 07/01/24 07:59 Dose: 20 mg Documented By: LILI Calcium Carbonate (Calcium Carbonate 750 Mg Tab.Chew) 750 mg PO Q4H PRN PRN Reason: Heartburn Escitalopram Oxalate (Escitalopram Oxalate 20 Mg Tablet) 20 mg PO DAILY [facility] Last Admin: 07/01/24 07:59 Dose: 20 mg Documented By: LILI Fluticasone/Vilanterol (Fluticasone/Vilanterol 200/25 Blst.W.Dev) 1 puff INHALE RDAILY [facility] Last Admin: 07/01/24 07:56 Dose: 1 puff Documented By: ONDINA Glucose (Glucose Gel 15 Gm Gel..Gram.) 15 gm PO Q15M PRN; Protocol PRN Reason: per Hypoglycemia Standing Ord. Heparin Sodium (Porcine) (Heparin Sodium,Porcine 5,000 Unit/Ml Vial) 5,000 unit SUBCUT Q12H [facility] Last Admin: 07/01/24 07:58 Dose: 5,000 unit Documented By: LILI Sodium Chloride (Ns) 1,000 mls @ 100 mls/hr IVCONT .Q10H [facility] Last Infusion: 06/27/24 11:34 Dose: Infused Documented By: CHELLE Ceftriaxone Sodium 1 gm/ (Sodium Chloride) 50 mls @ 100 mls/hr IV Q24H [facility] Last Infusion: 06/30/24 22:37 Dose: Infused Documented By: PAUL Dextrose (D10) 250 mls @ 750 mls/hr IV Q15M PRN; Protocol PRN Reason: per Hypoglycemia Standing Ord. Insulin Human Lispro (Insulin Lispro 100 Unit/Ml 3 Ml Vial) 0 unit SUBCUT QIDACHS [facility]; Protocol Last Admin: 07/01/24 07:58 Dose: 2 unit Documented By: ILLI Lisinopril (Lisinopril 20 Mg Tablet) 20 mg PO DAILY [facility]; Protocol Last Admin: 07/01/24 07:58 Dose: 20 mg Documented By: LILI Loperamide HCl (Loperamide Hcl 2 Mg Capsule) 2 mg PO Q4H PRN PRN Reason: Diarrhea Magnesium Hydroxide (Milk Of Magnesia 30 Ml Oral.Susp) 30 ml PO DAILY PRN PRN Reason: Constipation Magnesium Oxide (Magnesium Oxide 400 Mg Tablet) 400 mg PO BIDPC [facility] Last Admin: 07/01/24 07:59 Dose: 400 mg Documented By: LILI Meclizine HCl (Meclizine Hcl 25 Mg Tablet) 25 mg PO DAILY [facility] Last Admin: 07/01/24 07:59 Dose: 25 mg Documented By: LILI Melatonin (Melatonin 3 Mg Tablet) 6 mg PO BEDTIME PRN PRN Reason: Insomnia Metoclopramide HCl (Metoclopramide Hcl 10 Mg/2 Ml Vial) 5 mg IVPUSH Q6H PRN PRN Reason: Nausea and Vomiting Last Admin: 06/29/24 08:52 Dose: 5 mg Documented By: FANTASMA Montelukast Sodium (Montelukast Sodium 10 Mg Tablet) 10 mg PO BEDTIME [facility] Last Admin: 06/30/24 21:51 Dose: 10 mg Documented By: PAUL Morphine Sulfate (Morphine Sulfate 2 Mg/Ml Cartridge) 2 mg IVPUSH Q3H PRN; Protocol PRN Reason: Pain, Severe (Pain Scale 7-10) Last Admin: 06/30/24 12:58 Dose: 2 mg Documented By: ENA Non-Formulary Medication (Norethindrone Acetate) 5 mg PO DAILY [facility] Ondansetron HCl (Ondansetron Hcl 4 Mg/2 Ml Vial) 4 mg IVPUSH Q8H PRN PRN Reason: Nausea and Vomiting Last Admin: 06/29/24 03:26 Dose: 4 mg Documented By: CASTILBrent Potassium Chloride (Potassium Chloride Er 20 Meq Tab.Er.Prt) 20 meq PO DAILY [facility] Last Admin: 07/01/24 07:59 Dose: 20 meq Documented By: LILI Sodium Chloride (0.9 % Sodium Chloride Flush 3 Ml Syringe) 3 ml IVFLUSH QSHIFT [facility] Last Admin: 07/01/24 07:59 Dose: 3 ml Documented By: LILI Labs 06/28/24 05:17 06/28/24 05:17 Labs: Laboratory Results - last 24 hr 06/30/24 06/30/24 06/30/24 11:07 16:26 19:34 POC Glucose 320 H 169 H 237 H 07/01/24 07:23 POC Glucose 173 H Microbiology Microbiology Results: Microbiology 06/25/24 15:43 Blood Culture - Final Blood - Venous No growth after 5 days. 06/25/24 14:31 Blood Culture - Final Blood - Venous No growth after 5 days. 06/27/24 18:05 Gram Stain - Final Abscess Intra-abdominal Routine Culture - Final No growth. Anaerobic Culture - Preliminary No growth to date. Procedures Date of Service Date of Service: 07/01/24 Progress Note: A&P Assessment and plan (1) Perinephric fluid collection: Status: Acute Assessment and Plan: There have been very little output from both drains I removed the CHARLENE drain with a less output was on the upper part going into the small pericolonic collection I have kept the other drain in place and will follow this If she does well overnight, she may be able to go home tomorrow with a drain in place She is comfortable with the plan She looks well clinically and does not have any GI complaints Time Spent With Patient Time: Total time managing care of this patient today ____ minutes. Quality Stroke Does the patient have a stroke diagnosis?: No VTE Prior VTE?: No VTE Risk Level:: Medical - moderate - high VTE Device Contraindication: Treatment Not Indicated VTE Drug Contraindication: N/A - Med Ordered
[2024-07-01 11:40] LABS: Glucose, Whole Blood 264 mg/dL (60-115)
[2024-07-01 12:00] VITALS: BP 120/67; PULSE 94; RESP 18; TEMP 36.1; O2SAT 96
--- NOTE | 2024-07-01 13:32 | P.PNIM_ITS ---
Subjective Subjective Date of Service: 07/01/24 Interval History: follow up for perinephric abscess/hematoma Review of Systems Has some soreness in the drain area. nausea seems improved. Physical Exam 2 Vital Signs: Vital Signs: Last Vital Signs Temp 96.9 F 07/01/24 12:00 Pulse 94 07/01/24 12:00 Resp 18 07/01/24 12:00 BP 120/67 07/01/24 12:00 Pulse Ox 96 07/01/24 12:00 O2 Del Method Room Air 07/01/24 12:00 O2 Flow Rate 2 06/27/24 18:45 Oxygen Flow Rate 2 06/25/24 13:00 BMI result Body Mass Index 45.2 Appearance: Alert.? Oriented X3.? cvs: rrr, [id number] . res: clear to auscultation ,no rhonchii or wheezing abd: no rebound or guarding ,nt, bs present. -Left flank sma drain place -has 2 catheters (small amount of blood tinged fluid) ext pulses present , no cyanosis . neuro: axo3 , nonfoca Objective Data Active Medications Acetaminophen (Acetaminophen 325 Mg Tablet) 650 mg PO Q6H PRN PRN Reason: Pain, Mild (Pain Scale 1-3), fever or headache Last Admin: 06/29/24 08:51 Dose: 650 mg Documented By: FANTASMA Albuterol Sulfate (Albuterol Sulfate 90 Mcg 8 Gm Inhaler) 2 puff INHALE Q6H PRN PRN Reason: Shortness Of Breath Or Wheezing Atorvastatin Calcium (Atorvastatin Calcium 20 Mg Tablet) 20 mg PO DAILY [facility] Last Admin: 07/01/24 07:59 Dose: 20 mg Documented By: LILI Calcium Carbonate (Calcium Carbonate 750 Mg Tab.Chew) 750 mg PO Q4H PRN PRN Reason: Heartburn Escitalopram Oxalate (Escitalopram Oxalate 20 Mg Tablet) 20 mg PO DAILY [facility] Last Admin: 07/01/24 07:59 Dose: 20 mg Documented By: LILI Fluticasone/Vilanterol (Fluticasone/Vilanterol 200/25 Blst.W.Dev) 1 puff INHALE RDAILY [facility] Last Admin: 07/01/24 07:56 Dose: 1 puff Documented By: ONDINA Glucose (Glucose Gel 15 Gm Gel..Gram.) 15 gm PO Q15M PRN; Protocol PRN Reason: per Hypoglycemia Standing Ord. Heparin Sodium (Porcine) (Heparin Sodium,Porcine 5,000 Unit/Ml Vial) 5,000 unit SUBCUT Q12H [facility] Last Admin: 07/01/24 07:58 Dose: 5,000 unit Documented By: LILI Sodium Chloride (Ns) 1,000 mls @ 100 mls/hr IVCONT .Q10H [facility] Last Infusion: 06/27/24 11:34 Dose: Infused Documented By: CHELLE Ceftriaxone Sodium 1 gm/ (Sodium Chloride) 50 mls @ 100 mls/hr IV Q24H [facility] Last Infusion: 06/30/24 22:37 Dose: Infused Documented By: PAUL Dextrose (D10) 250 mls @ 750 mls/hr IV Q15M PRN; Protocol PRN Reason: per Hypoglycemia Standing Ord. Insulin Human Lispro (Insulin Lispro 100 Unit/Ml 3 Ml Vial) 0 unit SUBCUT QIDACHS [facility]; Protocol Last Admin: 07/01/24 12:06 Dose: 6 unit Documented By: NATHAN Lisinopril (Lisinopril 20 Mg Tablet) 20 mg PO DAILY [facility]; Protocol Last Admin: 07/01/24 07:58 Dose: 20 mg Documented By: LILI Loperamide HCl (Loperamide Hcl 2 Mg Capsule) 2 mg PO Q4H PRN PRN Reason: Diarrhea Magnesium Hydroxide (Milk Of Magnesia 30 Ml Oral.Susp) 30 ml PO DAILY PRN PRN Reason: Constipation Magnesium Oxide (Magnesium Oxide 400 Mg Tablet) 400 mg PO BIDPC [facility] Last Admin: 07/01/24 07:59 Dose: 400 mg Documented By: LILI Meclizine HCl (Meclizine Hcl 25 Mg Tablet) 25 mg PO DAILY [facility] Last Admin: 07/01/24 07:59 Dose: 25 mg Documented By: LILI Melatonin (Melatonin 3 Mg Tablet) 6 mg PO BEDTIME PRN PRN Reason: Insomnia Metoclopramide HCl (Metoclopramide Hcl 10 Mg/2 Ml Vial) 5 mg IVPUSH Q6H PRN PRN Reason: Nausea and Vomiting Last Admin: 06/29/24 08:52 Dose: 5 mg Documented By: FANTASMA Montelukast Sodium (Montelukast Sodium 10 Mg Tablet) 10 mg PO BEDTIME [facility] Last Admin: 06/30/24 21:51 Dose: 10 mg Documented By: PAUL Morphine Sulfate (Morphine Sulfate 2 Mg/Ml Cartridge) 2 mg IVPUSH Q3H PRN; Protocol PRN Reason: Pain, Severe (Pain Scale 7-10) Last Admin: 06/30/24 12:58 Dose: 2 mg Documented By: ENA Ondansetron HCl (Ondansetron Hcl 4 Mg/2 Ml Vial) 4 mg IVPUSH Q8H PRN PRN Reason: Nausea and Vomiting Last Admin: 06/29/24 03:26 Dose: 4 mg Documented By: FRANCISCO Potassium Chloride (Potassium Chloride Er 20 Meq Tab.Er.Prt) 20 meq PO DAILY [facility] Last Admin: 07/01/24 07:59 Dose: 20 meq Documented By: LILI Sodium Chloride (0.9 % Sodium Chloride Flush 3 Ml Syringe) 3 ml IVFLUSH QSHIFT [facility] Last Admin: 07/01/24 07:59 Dose: 3 ml Documented By: LILI Labs 06/28/24 05:17 06/28/24 05:17 Labs: Laboratory Results - last 24 hr 06/30/24 06/30/24 07/01/24 16:26 19:34 07:23 POC Glucose 169 H 237 H 173 H 07/01/24 11:24 POC Glucose 264 H Microbiology Microbiology Results: Microbiology 06/27/24 18:05 Gram Stain - Final Abscess Intra-abdominal Routine Culture - Final No growth. Anaerobic Culture - Preliminary No growth to date. 06/25/24 15:43 Blood Culture - Final Blood - Venous No growth after 5 days. 06/25/24 14:31 Blood Culture - Final Blood - Venous No growth after 5 days. Assessment and Plan (1) Perinephric fluid collection: Status: Acute Assessment and Plan: 53-year-old female with pertinent history of nephrolithiasis, left subscapsular hematoma, [id number] type 2 diabetes mellitus, obesity, hypertension, CAD, asthma not on home oxygen, mixed hyperlipidemia admitted for further management of left perinephric abscess with severe sepsis Acute recurrent left perinephric abscess/hematoma with severe sepsis Sepsis resolved 06/26 CT abdomen pelvis shows small left perinephric fluid and air collection with left retroperitoneal drain terminating lateral to the perinephric collection in the retroperitoneal fat consider repositioning. There is also additional left retroperitoneal fluid collection more superiorly adjacent to the pancreatic tail and in the left splenic hilum . on 06/03 for same s/p IR SAM drain placement, remains in place. Culture grew E coli, Klebsiella, strep viridans sensitive to ceftriaxone. Anaerobic culture grew Bacteroides seen by urology: Urology/general surgery- new drain placed in small collection near spleen, cultures sent. Plan: Blood culture negative at 48 hour, abdominal fluid culture pending d/w ID-continue IV ctx and dc flagyl (initiated 06/25) follow CBC. 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 surgery following Acute diarrhea gi panel and cdiff pcr negative added immodium Acute nausea/vomiting-possibly r/t infection on arrival, but concern for enteritis/gastroenteritis given coinciding diarrhea gi panel and cdiff pcr negative nausea /vomiting improved still has diarrhae as above. acute hyponatremia-suspect pseudo hyponatremia in setting of hyperglycemia -resolved acute hypomagnesemia-repleted, initiate 400mg magoxide BID [id number] type 2 diabetes -POC glucose, Admelog sliding scale. Advance to diabetic diet hypertension-continue lisinopril class 3 obesity-weight loss efforts DVT prophylaxis-heparin Full code Ongoing inpatient stay required for IV antibiotic treatment due to left perinephric abscess with severe sepsis also requiring expert consultation. Quality Stroke Does the patient have a stroke diagnosis?: No VTE Prior VTE?: No VTE Risk Level:: Medical - moderate - high VTE Device Contraindication: Treatment Not Indicated VTE Drug Contraindication: N/A - Med Ordered
--- NOTE | 2024-07-01 15:39 | MHC.CM.PN ---
per rounds pt not ready for dc drain to come out
[2024-07-01 16:00] VITALS: BP 136/76; PULSE 86; RESP 18; TEMP 36.2; O2SAT 96
[2024-07-01 16:49] LABS: Glucose, Whole Blood 230 mg/dL (60-115)
[2024-07-01 19:09] VITALS: BP 138/81; PULSE 86; RESP 18; TEMP 36.2; O2SAT 95
[2024-07-01 19:35] LABS: Glucose, Whole Blood 245 mg/dL (60-115)
[2024-07-01] MEDS: cefTRIAXone sodium 1 GM in 0.9 % Sodium Chloride 50 ML IV (22:41)
[2024-07-01] MEDS: Montelukast Sodium 10 MG TABLET PO (22:44)
[2024-07-02] VITALS: BP 142/86; PULSE 79; RESP 16; TEMP 36; O2SAT 96
--- NOTE | 2024-07-02 02:39 | MHC.PIE ---
p; iv site noted infiltration, pain and edema. iv insertion x2 attempted with no result. pt now refusing anymore iv insertion attempts at this time. note; pt reports getting dc'd in morning per surgical. i; dr hernandez notified e; will cont to monitor
[2024-07-02 03:54] VITALS: BP 144/81; PULSE 78; RESP 16; TEMP 36.1; O2SAT 97
[2024-07-02 07:28] VITALS: BP 118/69; PULSE 80; RESP 18; TEMP 36.1; O2SAT 98
[2024-07-02 07:40] LABS: Glucose, Whole Blood 171 mg/dL (60-115)
[2024-07-02] MEDS: Insulin Lispro 100 UNIT/ML 3 ML VIAL SUBCUT ×2 (08:00→11:55)
[2024-07-02] MEDS: Heparin Sodium,Porcine 5,000 UNIT/ML VIAL 5000 UNIT SUBCUT (08:00)
[2024-07-02] MEDS: Potassium Chloride ER 20 MEQ TAB.ER.PRT PO (08:00)
[2024-07-02] MEDS: Meclizine HCl 25 MG TABLET PO (08:00)
[2024-07-02] MEDS: Magnesium Oxide 400 MG TABLET PO (08:00)
[2024-07-02] MEDS: Escitalopram Oxalate 20 MG TABLET PO (08:00)
[2024-07-02] MEDS: Atorvastatin Calcium 20 MG TABLET PO (08:00)
[2024-07-02] MEDS: lisinopriL 20 MG TABLET PO (08:00)
[2024-07-02] MEDS: Fluticasone/Vilanterol 200/25 BLST.W.DEV 1 PUFF INHALE (08:23)
[2024-07-02 08:24] VITALS: PULSE 80; RESP 18; O2SAT 98
[2024-07-02] MEDS: cefuroxime axetiL 500 MG TABLET PO (09:09)
--- NOTE | 2024-07-02 09:38 | PM.PNGS ---
Subjective Subjective Date of Service: 07/02/24 Interval history: Feels well Says that her IV site infiltrated overnight and no good access could be found Now on p.o. antibiotics Good GI functions Physical Exam Vital Signs: Vital Signs: Last Vital Signs Temp 96.9 F 07/02/24 07:28 Pulse 80 07/02/24 08:24 Resp 18 07/02/24 08:24 BP 118/69 07/02/24 07:28 Pulse Ox 98 07/02/24 07:28 O2 Del Method Room Air 07/02/24 07:28 O2 Flow Rate 2 06/27/24 18:45 Oxygen Flow Rate 2 06/25/24 13:00 BMI result Body Mass Index 45.2 Const: Other: Looks well General: comfortable and no acute distress Cardio: Rate: regular rate GI: Other: CHARLENE drain minimal output, thick serosanguineous, no obvious pus Palpation (GI): Soft to palpation Objective Data Active Medications Acetaminophen (Acetaminophen 325 Mg Tablet) 650 mg PO Q6H PRN PRN Reason: Pain, Mild (Pain Scale 1-3), fever or headache Last Admin: 06/29/24 08:51 Dose: 650 mg Documented By: FANTASMA Albuterol Sulfate (Albuterol Sulfate 90 Mcg 8 Gm Inhaler) 2 puff INHALE Q6H PRN PRN Reason: Shortness Of Breath Or Wheezing Atorvastatin Calcium (Atorvastatin Calcium 20 Mg Tablet) 20 mg PO DAILY [facility] Last Admin: 07/02/24 08:00 Dose: 20 mg Documented By: VENKAT Calcium Carbonate (Calcium Carbonate 750 Mg Tab.Chew) 750 mg PO Q4H PRN PRN Reason: Heartburn Cefuroxime Axetil (Cefuroxime Axetil 500 Mg Tablet) 500 mg PO BID [facility] Last Admin: 07/02/24 09:09 Dose: 500 mg Documented By: VENKAT Escitalopram Oxalate (Escitalopram Oxalate 20 Mg Tablet) 20 mg PO DAILY [facility] Last Admin: 07/02/24 08:00 Dose: 20 mg Documented By: VENKAT Fluticasone/Vilanterol (Fluticasone/Vilanterol 200/25 Blst.W.Dev) 1 puff INHALE RDAILY [facility] Last Admin: 07/02/24 08:23 Dose: 1 puff Documented By: HO.REILLK Glucose (Glucose Gel 15 Gm Gel..Gram.) 15 gm PO Q15M PRN; Protocol PRN Reason: per Hypoglycemia Standing Ord. Heparin Sodium (Porcine) (Heparin Sodium,Porcine 5,000 Unit/Ml Vial) 5,000 unit SUBCUT Q12H [facility] Last Admin: 07/02/24 08:00 Dose: 5,000 unit Documented By: VENKAT Sodium Chloride (Ns) 1,000 mls @ 100 mls/hr IVCONT .Q10H [facility] Last Infusion: 06/27/24 11:34 Dose: Infused Documented By: CHELLE Dextrose (D10) 250 mls @ 750 mls/hr IV Q15M PRN; Protocol PRN Reason: per Hypoglycemia Standing Ord. Insulin Human Lispro (Insulin Lispro 100 Unit/Ml 3 Ml Vial) 0 unit SUBCUT QIDACHS [facility]; Protocol Last Admin: 07/02/24 08:00 Dose: 2 unit Documented By: VENKAT Lisinopril (Lisinopril 20 Mg Tablet) 20 mg PO DAILY [facility]; Protocol Last Admin: 07/02/24 08:00 Dose: 20 mg Documented By: VENKAT Loperamide HCl (Loperamide Hcl 2 Mg Capsule) 2 mg PO Q4H PRN PRN Reason: Diarrhea Magnesium Hydroxide (Milk Of Magnesia 30 Ml Oral.Susp) 30 ml PO DAILY PRN PRN Reason: Constipation Magnesium Oxide (Magnesium Oxide 400 Mg Tablet) 400 mg PO BIDPC [facility] Last Admin: 07/02/24 08:00 Dose: 400 mg Documented By: VENKAT Meclizine HCl (Meclizine Hcl 25 Mg Tablet) 25 mg PO DAILY [facility] Last Admin: 07/02/24 08:00 Dose: 25 mg Documented By: VENKAT Melatonin (Melatonin 3 Mg Tablet) 6 mg PO BEDTIME PRN PRN Reason: Insomnia Metoclopramide HCl (Metoclopramide Hcl 10 Mg/2 Ml Vial) 5 mg IVPUSH Q6H PRN PRN Reason: Nausea and Vomiting Last Admin: 06/29/24 08:52 Dose: 5 mg Documented By: FANTASMA Montelukast Sodium (Montelukast Sodium 10 Mg Tablet) 10 mg PO BEDTIME [facility] Last Admin: 07/01/24 22:44 Dose: 10 mg Documented By: FLORENCE Morphine Sulfate (Morphine Sulfate 2 Mg/Ml Cartridge) 2 mg IVPUSH Q3H PRN; Protocol PRN Reason: Pain, Severe (Pain Scale 7-10) Last Admin: 06/30/24 12:58 Dose: 2 mg Documented By: ENA Ondansetron HCl (Ondansetron Hcl 4 Mg/2 Ml Vial) 4 mg IVPUSH Q8H PRN PRN Reason: Nausea and Vomiting Last Admin: 06/29/24 03:26 Dose: 4 mg Documented By: FRANCISCO Potassium Chloride (Potassium Chloride Er 20 Meq Tab.Er.Prt) 20 meq PO DAILY [facility] Last Admin: 07/02/24 08:00 Dose: 20 meq Documented By: VENKAT Sodium Chloride (0.9 % Sodium Chloride Flush 3 Ml Syringe) 3 ml IVFLUSH QSHIFT [facility] Last Admin: 07/02/24 09:10 Dose: Not Given Documented By: VENKAT Non-Admin Reason: no IV access Labs 06/28/24 05:17 06/28/24 05:17 Labs: Laboratory Results - last 24 hr 07/01/24 07/01/24 07/01/24 11:24 16:24 19:31 POC Glucose 264 H 230 H 245 H 07/02/24 07:31 POC Glucose 171 H Microbiology Microbiology Results: Microbiology 06/27/24 18:05 Gram Stain - Final Abscess Intra-abdominal Routine Culture - Final No growth. Anaerobic Culture - Preliminary No growth to date. Procedures Date of Service Date of Service: 07/02/24 Progress Note: A&P Assessment and plan (1) Perinephric fluid collection: Status: Acute Assessment and Plan: With connection to the left colon I pulled out one drain from the small collection superior to this she looks well has had no signficant issues ok to dc home on PO abx I can see her in the office in 1-2 weeks to dc the drain Time Spent With Patient Time: Total time managing care of this patient today ____ minutes. Quality Stroke Does the patient have a stroke diagnosis?: No VTE Prior VTE?: No VTE Risk Level:: Medical - moderate - high VTE Device Contraindication: Treatment Not Indicated VTE Drug Contraindication: N/A - Med Ordered
[2024-07-02 11:34] LABS: Glucose, Whole Blood 226 mg/dL (60-115)
[2024-07-02 11:38] VITALS: BP 134/76; PULSE 81; RESP 18; TEMP 36.1; O2SAT 96
--- NOTE | 2024-07-02 11:59 | MHC.CM.PN ---
Addendum entered by Jesi Finley 07/02/24 13:16: CM MET WITH PT AGAIN TO CONFIRM DC PLANS, SHE AGAIN DECLINED OFFER OF VNA SERVICES PT CONFIRMS SHE HAS BEEN MANAGING HER DRAINS AT HOME AND STATES SHE DOES NOT WANT ANYONE COMING IN AND OUT OF HER HOME Original Note: PT CLEARED TO DC TODAY WITH HOME HEALTH SERVICES CM MET WITH PT TO DISCUSS DC PLANS PT REPORTS SHE DOES NOT NEED A VNA, SHE SAYS ALL THEY DO IS TAKE HER VS AND LOOK AT HER DRAINS, AND SHE IS COMFORTABLE MANAGING HER OWN DRAINS. PT EXPRESSED FRUSTRATION THAT SHE HAD TO RETURN TO INPT AND WORRY THAT IT MAY HAPPEN AGAIN, HOWEVER STATES SHE IS READY TO GO HOME PTS IS PRESENT TO TRANSPORT
--- NOTE | 2024-07-02 12:00 | PM.DS ---
DS: Providers Provider Date of Service: 07/02/24 Date of admission: 06/25/24 15:17 Date of discharge: 07/02/24 Primary care physician: Eva Galarza MD Consults: 06/25/24 15:32 Consult to Urology Routine Consulting Provider: [facility] Urology Services Reason for consultation: perinephric abscess 06/25/24 16:43 Consult to General Surgery Routine Consulting Provider: [facility] General Surgeons Reason for consultation: perinephric/retroperitoneal abscess (CT [facility], disc in chart) 06/29/24 14:27 Consult to Infectious Diseases Routine Consulting Provider: [facility] Infectious Disease Center Reason for consultation: perinephric abcess Has provider been notified: No Attending physician on discharge: Paul Soto Discharging clinician: Paul Soto DS: Diagnosis Discharge Diagnosis (1) Perinephric fluid collection: Status: Acute DS: Summary Hospital Course Hospital Course: 53-year-old female with pertinent history of nephrolithiasis, left subscapsular hematoma, [id number] type 2 diabetes mellitus, obesity, hypertension, CAD, asthma not on home oxygen, mixed hyperlipidemia presented to the ED from [facility] ED due to nausea, vomiting, fevers of 101, chills, and general malaise that started this morning. EMS was called and transported her to [facility]. She was recently discharged from [facility] on 06/03 due to perinephric abscess with placement of drain by IR Radiology and was also evaluated by General surgery with question of diverticular fistula. She was discharged with SATINDER drain and completed course of Ceftin and Flagyl. She was on seen by Dr. Mckeon in the office on 06/20 and underwent cystoscopy 06/21 to change the left ureteral stent. While at [facility], patient had a slightly elevated temperature of 100 degrees, was tachycardic and tachypneic. Lactic acid was normal at [facility]. Renal function noted to be baseline, electrolyte levels normal. Glucose elevated at 392. Urinalysis with moderate blood, otherwise unremarkable. EKG shows sinus tachycardia, rate 114 with T-wave inversions in V1 through V4, unchanged from prior EKGs. Chest x-ray with possible vascular congestion, otherwise unremarkable. CT abdomen pelvis shows small left perinephric fluid and air collection with left retroperitoneal drain terminating lateral to the perinephric collection in the retroperitoneal fat consider repositioning. There is also additional left retroperitoneal fluid collection more superiorly adjacent to the pancreatic tail and in the left splenic hilum measuring 5 cm possibly representing hematoma versus abscess. As well as a nonobstructive left lower pole renal calculi without hydronephrosis. CT chest without any acute findings. She was given a dose of IV ceftriaxone. Given patient meeting sepsis criteria, case was discussed with Urology and she was recommended for transfer to [facility] for further evaluation and management of sepsis related to perinephric abscess and will be admitted for further management of such. While patient is mildly tachycardic but otherwise hemodynamically stable. WBC 11.1. Renal function baseline, electrolyte levels normal except for sodium of 132 with glucose of 326. Initial lactic acid 3.3, repeat pending. Urinalysis with 1+ blood, elevated specific gravity, 2+ protein, significant late elevated glucose, but not indicative of infection. In our ED, has received Tylenol, IV NS, and ondansetron. Hospital course: patient admitted for severe sepsis with Acute recurrent left perinephric abscess/hematoma with severe sepsis-started on iv antibiotics ,blood cultures sent ,ct abd:shows small left perinephric fluid and air collection with left retroperitoneal drain terminating lateral to the perinephric collection in the retroperitoneal fat consider repositioning. There is also additional left retroperitoneal fluid collection more superiorly adjacent to the pancreatic tail and in the left splenic hilum ,has one Satinder drain since 06/03 , seen by surgery saw the patient and Successful placement of a new perisplenic abscess catheter on 06/27,abdomen fluid Culture grew E coli, Klebsiella, strep viridans sensitive to ceftriaxone. Anaerobic culture grew Bacteroides (05/25/24) ,repeat abominal fluid culture negative,blood cultures negative -patient was intially ceftriaxone and flagyl ,also seen by Id and cultures reviewed : recomended ceftin 500 mg po bid x 14 days upon discharge and her 1 catheter taken out by surgery (07/02/24).patient seems asymptomatic now , no fever ,abd or urinary c/o. h/h stable in 12.2/38.3 range.sepsis resolved. 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 other issue during this hospilisation: hypomagnesemia repleted and resolved. pseudohyponatremia sec to hyperglycemia -resolved. Acute diarrhea-gi panel and cdiff pcr negative diarrhae resolved. plan: complete ceftin 500 mg po bid. moniter cbc ,bmp outpatient. patient need to follow up with surgery,urology,pcp outpatient. Patient refused VNA-she says I will take care of my catheter own, she was also previously taking care of it, teaching was given by the staff. Above management discussed with the patient detail length she understand in agreement with the above plan, time spent 40 minute. Time Attestation Total time managing care of this patient today: 40 mintues. Discharge Coordination Time (in mins): 40 min Quality: Safe Use of Opioids Does Pt have an Active Cancer Diagnosis on the Problem List?: No Quality: Stroke Does the patient have a stroke diagnosis?: No Physical Exam Vital Signs: Vital Signs: Last Vital Signs Temp 96.9 F 07/02/24 11:38 Pulse 81 07/02/24 11:38 Resp 18 07/02/24 11:38 BP 134/76 07/02/24 11:38 Pulse Ox 96 07/02/24 11:38 O2 Del Method Room Air 07/02/24 11:38 O2 Flow Rate 2 06/27/24 18:45 Oxygen Flow Rate 2 06/25/24 13:00 BMI result Body Mass Index 45.2 Appearance: Alert.? Oriented X3.? cvs: rrr, [id number] . res: clear to auscultation ,no rhonchii or wheezing abd: no rebound or guarding ,nt, bs present. -Left flank satinder drain place -has 1 catheters , site seems clean. ext pulses present , no cyanosis . neuro: axo3 , nonfoca DS: Data Data Completed and Pending Completed studies during hospitalization [Text1]: Procedures Dilation of Left Ureter with Intraluminal Device, Via Natural or Artificial Opening Endoscopic (03/02/24) Drainage of Retroperitoneum, Percutaneous Approach (05/23/24) Fluoroscopy of Left Kidney, Ureter and Bladder (03/02/24) Labs on day of discharge: Laboratory Results - last 24 hr 07/01/24 07/01/24 07/02/24 16:24 19:31 07:31 POC Glucose 230 H 245 H 171 H 07/02/24 11:22 POC Glucose 226 H Preliminary micro results at discharge 06/27/24 18:05 Anaerobic Culture - Preliminary Abscess Intra-abdominal No growth to date. Imaging CT scan - abdomen: Radiologist's impression: abcess drainage Ct abd: Summary: 1. Successful repositioning of a left perinephric abscess catheter. 2. Successful placement of a new perisplenic abscess catheter. A specimen was sent to the laboratory for analysis. FL/FL fistula/abscess/sinus tract IMPRESSION: Contrast injection through the drainage catheter demonstrates a communication between the left perirenal space and the descending colon. This procedure was performed by Darwin Garrido PA-C, and supervised by Dr. 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 Referrals: Dangelo Bonilla MD [Physician] - 1 Week Eva Galarza MD [Primary Care Provider] - 1 Week Marco A Huddleston MD [Physician] - 1 Week Discharge Medications: New cefuroxime axetil 500 mg Tablet 500 mg PO BID Qty: 27 0RF magnesium 250 mg tablet 250 mg PO DAILY Qty: 10 0RF Continued Mounjaro 7.5 mg/0.5 mL pen injector 7.5 mg subcut WE@0900 budesonide-formoterol [Symbicort] 160-4.5 mcg/actuation HFA aerosol inhaler 2 puff inhalation BID montelukast 10 mg tablet 10 mg PO BEDTIME norethindrone acetate 5 mg tablet 5 mg PO DAILY albuterol sulfate [Ventolin HFA] 90 mcg/actuation HFA aerosol inhaler 2 puff inhalation Q6H PRN (Reason: Shortness Of Breath Or Wheezing) meclizine 25 mg tablet 25 mg PO DAILY citalopram 40 mg tablet 40 mg PO DAILY simvastatin 40 mg tablet 40 mg PO BEDTIME lisinopril 20 mg tablet 20 mg PO DAILY Discharge Orders: Discharge Order (Routine); Ordered 07/02/24 Ordered By: Paul Soto Diet: Advance to usual diet Activity on Discharge: As tolerated Stand Alone Forms: Patient Portal Discharge page Print Language: [place] Island[place] Other Ambulatory Orders: Basic Metabolic Panel (Routine) Timeframe: 1 Day Facility: [facility] - Location: Laboratory Ordered By: Paul Soto Complete Blood Count no Diff (Routine) Timeframe: 1 Week Facility: [facility] - Location: Laboratory Ordered By: Paul Soto Magnesium (Routine) Timeframe: 1 Week Facility: [facility] - Location: Laboratory Ordered By: Paul Soto Care Plan Goals: patient admitted for Acute recurrent left perinephric abscess/hematoma with severe sepsis-started on iv antibiotics ,blood cultures sent ,ct abd:shows small left perinephric fluid and air collection with left retroperitoneal drain terminating lateral to the perinephric collection in the retroperitoneal fat consider repositioning. There is also additional left retroperitoneal fluid collection more superiorly adjacent to the pancreatic tail and in the left splenic hilum ,has one Satinder drain since 06/03 , seen by surgery saw the patient and Successful placement of a new perisplenic abscess catheter on 06/27,abdomen fluid Culture grew E coli, Klebsiella, strep viridans sensitive to ceftriaxone. Anaerobic culture grew Bacteroides (05/25/24) ,repeat abominal fluid culture negative,blood cultures negative -patient was intially ceftriaxone and flagyl ,also seen by Id and cultures reviewed : recomended ceftin 500 mg po bid x 14 days upon discharge and her 1 catheter taken out by surgery (07/02/24).patient seems asymptomatic now , no fever ,abd or urinary c/o. h/h stable in 12.2/38.3 range. hypomagnesemia repleted and resolved. 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 moniter cbc ,bmp outpatient. patient need to follow up with surgery,urology,pcp outpatient. patient will be going home with vna. Health Concerns: as above. Plan of Treatment: as above. Assessment: as above. Discharge Date/Time: 07/02/24 13:05
--- NOTE | 2024-07-02 12:08 | P.F2F_ITS ---
Service Date Service Date: 07/02/24 Encounter Date of encounter: 07/02/24 Encounter: Acute recurrent left perinephric abscess/hematoma with severe sepsis Reasons for Services Signs and symptoms assessed: moniter for fevers or abd pain or any new urinary c/o. Reason for group home: medication management, medication treatment, teach disease management and other (Sam drain care) MD Overseeing Care: Eva Galarza Homebound: Leaving the home is medically contraindicated at this time without the asist of a device and/or another person due th the listed conditions above and below. Reason homebound: weakness related to hospital stay Homebound supporting statement: patient is generalised weak ,has multiple coomorbidities ,has sam drain -need help to go to appointments ,sam drain care and help with blood draws. Certification: Based on the above findings, I certify that this patient is confined to the home and needs intermittent group home care, physical therapy and/or speech therapy, or continues to need occupational therapy. The patient is under my care, and I have initiated the establishment of the plan of care. The patient will be followed by a physician who will periodically review the plan of care. Time Spent With Patient Time: Total time managing care of this patient today ____ minutes.
== END 2024-07-02 13:05 | disposition home health service (06) | DRG 710 ==
LOC: HO.ED 14:38 → HO.EDOVER 15:38 → HO.S3 06-26 00:07
PROVIDERS: Internal Medicine; Physician Assistant; Radiology Vascular & Interventional Radiology; Admitting Provider Physician Assistant; Emergency Provider Emergency Medicine; PCP Internal Medicine; Visit Provider Internal Medicine
PROC: 0WW Anatomical Regions, General, Revision (ICD-10-PCS; principal; 2024-06-27 16:00)
DX: A41.9 Sepsis, unspecified organism (principal); N15.1 Renal and perinephric abscess; K63.2 Fistula of intestine; E87.21 Acute metabolic acidosis; I12.9 Hypertensive chronic kidney disease with stage 1 through stage 4 chronic kidney disease, or unspecified chronic kidney disease; E11.22 Type 2 diabetes mellitus with diabetic chronic kidney disease; N18.30 Chronic kidney disease, stage 3 unspecified; R19.7 Diarrhea, unspecified; I25.10 Atherosclerotic heart disease of native coronary artery without angina pectoris; J45.909 Unspecified asthma, uncomplicated; R65.20 Severe sepsis without septic shock; E66.01 Morbid (severe) obesity due to excess calories; Z68.42 Body mass index [BMI] 45.0-49.9, adult; E11.65 Type 2 diabetes mellitus with hyperglycemia; Z71.3 Dietary counseling and surveillance; E83.42 Hypomagnesemia; Z79.899 Other long term (current) drug therapy
CPT/HCPCS: 36415; 49406; 75989; 80048; 80076; 81001; 82803; 82947; 83605; 83690; 83735; 83880; 85025; 85610; 87040; 87070; 87073; 87205; 87493; 87507; 99285; C1729; J0696; J1644; J1836; J2060; J2270; J2405; J2765; J3475

== ENCOUNTER 2024-06-25 15:17 | Outpatient (BNV) | payer OTHER, SELFPAY | END 2024-06-26 16:00 | PROVIDERS: Admitting Provider Physician Assistant; Emergency Provider Emergency Medicine; PCP Internal Medicine; Visit Provider Radiology Vascular & Interventional Radiology | DX: N15.1 Renal and perinephric abscess (principal); D73.3 Abscess of spleen | CPT/HCPCS: 49405; 49505; 99152 ==

== ENCOUNTER → 2024-06-25 15:17 | Outpatient (BNV) | payer OTHER, SELFPAY | PROVIDERS: Admitting Provider Physician Assistant; Emergency Provider Emergency Medicine; PCP Internal Medicine; Visit Provider Physician Assistant | DX: N28.89 Other specified disorders of kidney and ureter (principal) | CPT/HCPCS: 99223; 99231; 99232; 99239; G0180 ==

== ENCOUNTER → 2024-06-25 15:17 | Outpatient (BNV) | payer OTHER, SELFPAY | PROVIDERS: Admitting Provider Physician Assistant; Emergency Provider Emergency Medicine; PCP Internal Medicine; Visit Provider Internal Medicine | DX: K63.2 Fistula of intestine (principal); N28.89 Other specified disorders of kidney and ureter; R18.8 Other ascites; N15.1 Renal and perinephric abscess | CPT/HCPCS: 99222 ==

== ENCOUNTER → 2024-06-25 15:17 | Outpatient (BNV) | payer OTHER, SELFPAY | PROVIDERS: Admitting Provider Physician Assistant; Emergency Provider Emergency Medicine; PCP Internal Medicine; Visit Provider Surgery | DX: N28.89 Other specified disorders of kidney and ureter (principal) | CPT/HCPCS: 99222; 99232; 99499 ==

== ENCOUNTER → 2024-06-25 15:17 | Outpatient (BNV) | payer OTHER, SELFPAY | PROVIDERS: Admitting Provider Physician Assistant; Emergency Provider Emergency Medicine; PCP Internal Medicine; Visit Provider Urology | DX: N15.1 Renal and perinephric abscess (principal); K63.2 Fistula of intestine | CPT/HCPCS: 99222 ==

== ENCOUNTER 2024-07-04 09:42 | Outpatient (AMB) | payer OTHER, SELFPAY ==
--- NOTE | 2024-07-04 09:45 | MHC.OFFVIS ---
Intake Visit Reasons: Check Drainage tube Intake Note: This patient presents for drain tube check. Pt c/o; reports her tube got pulled into something and she feels like it got displaced, reports pain. Land Classifier Required: No Accompanied by: Self / Same As Patient Allergies sulfamethoxazole [From Bactrim] Allergy (Mild, Verified 07/04/24 09:53) Hives trimethoprim [From Bactrim] Allergy (Unknown, Verified 07/04/24 09:53) Anaphylaxis oxycodone Adverse Reaction (Intermediate, Verified 07/04/24 09:53) Flushing FISH Allergy (Unknown, Uncoded 07/04/24 09:53) Anaphylaxis Medication List - Last Reconciled 07/04/24 by Marco A Huddleston MD albuterol sulfate 90 mcg/actuation (Ventolin HFA) 2 puffs inhalation Q6H PRN budesonide-formoterol 160-4.5 mcg/actuation (Symbicort) 2 puffs inhalation BID cefuroxime axetil 500 mg PO BID citalopram 40 mg PO DAILY lisinopril 20 mg PO DAILY magnesium 250 mg PO DAILY meclizine 25 mg PO DAILY montelukast 10 mg PO BEDTIME norethindrone acetate 5 mg PO DAILY simvastatin 40 mg PO BEDTIME tirzepatide (Mounjaro) 7.5 mg subcut WE@0900 HPI HPI Check Drainage tube: Details: She has [address]. She has this drain to the perinephric abscess for few weeks which had been repositioned week ago. She had a new drain to a small collection above this near the colon as well. This other drain had been removed last week. She was just discharged from the hospital 2 days ago. She says that at home, the drain had caught in a drawer and was pulled out so she was worried that this is now out of place She denies any new complaints. She denies any fever or chills. The output from this drain has been very scanty and not purulent at all for several days now. This is just old thick blood. [facility] Medical History Hematoma of kidney Perinephric hematoma Asthma Benign paroxysmal positional vertigo Obesity Cataract CKD (chronic kidney disease) Depression HLD (hyperlipidemia) Diabetes HTN (hypertension) Sleep apnea History of kidney stones History of in vitro fertilization Surgical History H/O breast biopsy History of ureteroscopy Hx of ectopic History of open heart surgery Family History Father Cancer Mother Epilepsia Dementia Brother Drug abuse Bipolar 1 disorder Son No problems noted. Social History Household Members: Spouse and Children Housing: House Do you presently have visiting nurse or other home services: No Alcohol intake: never Comment: pt refused red socks Patient Tobacco Use Status: Never used Tobacco Advance Directives Date on File: 04/12/24 service: No Review of Systems Const Denies chills and Denies fever(s) Card Denies chest pain, Denies dyspnea and Denies dyspnea on exertion Resp Denies cough, Denies dyspnea and Denies dyspnea on exertion GI Denies hematochezia and Denies change in bowel habits Denies hematuria Musc Denies back pain and Denies limited range of motion Neuro Denies focal weakness and Denies convulsions Psych Denies depression and Denies mood swings Physical Exam Const Other: Looks well, morbidly obese General: comfortable and no acute distress Resp Effort & Inspection: normal respiratory effort GI Other: Drain in place, very scanty output, serosanguineous and thick, not purulent at all Assessment & Plan Assessment & Plan (1) Perinephric fluid collection: Code(s): N28.89 - Other specified disorders of kidney and ureter Category: Medical Plan: There has been very scanty output and nonpurulent. I therefore removed the drain without difficulty I will see her again next week to see how she is doing. There was a concern of a fistulous connection to the colon but there has been no output anymore through this drain. She is still on antibiotics. Coding Level of Care Code Est Pt Level 3 (06516) Diagnoses Perinephric fluid collection N28.89
== END 2024-07-04 09:59 | disposition home or self-care (01) ==
PROVIDERS: PCP Internal Medicine; Visit Provider Surgery
DX: N28.89 Other specified disorders of kidney and ureter (principal)
CPT/HCPCS: 99213

== ENCOUNTER → 2024-07-04 09:42 | Outpatient (BNVA) | payer OTHER, SELFPAY | PROVIDERS: PCP Internal Medicine; Visit Provider Surgery ==

== ENCOUNTER 2024-07-11 08:51 | Outpatient (AMB) | payer OTHER, SELFPAY ==
--- NOTE | 2024-07-11 08:55 | A.OFFVIS_ITS ---
Vital Signs 07/11/24 09:00 Weight 267 lb Intake Visit Reasons: s/p tube removal Intake Note: This patient presents for wound check, status post drain removal. Pt c/o; reports I still feel weak . Ecology Professor Required: No Accompanied by: Self / Same As Patient Allergies sulfamethoxazole [From Bactrim] Allergy (Mild, Verified 07/11/24 09:01) Hives trimethoprim [From Bactrim] Allergy (Unknown, Verified 07/11/24 09:01) Anaphylaxis oxycodone Adverse Reaction (Intermediate, Verified 07/11/24 09:01) Flushing FISH Allergy (Unknown, Uncoded 07/11/24 09:01) Anaphylaxis Medication List - Last Reconciled 07/11/24 by Marco A Huddleston MD albuterol sulfate 90 mcg/actuation (Ventolin HFA) 2 puffs inhalation Q6H PRN budesonide-formoterol 160-4.5 mcg/actuation (Symbicort) 2 puffs inhalation BID cefuroxime axetil 500 mg PO BID citalopram 40 mg PO DAILY lisinopril 20 mg PO DAILY magnesium 250 mg PO DAILY meclizine 25 mg PO DAILY montelukast 10 mg PO BEDTIME norethindrone acetate 5 mg PO DAILY simvastatin 40 mg PO BEDTIME tirzepatide (Mounjaro) 7.5 mg subcut WE@0900 HPI HPI s/p tube removal: Details: She is here for follow-up after removal of the IR tube to the perinephric collection. She denies any GI complaints. She does state that she sometimes still feels weak. She had low magnesium last week and she was given supplements for this. She denies any fever or chills. She has good oral intake. [facility] Medical History Hematoma of kidney Perinephric hematoma Asthma Benign paroxysmal positional vertigo Obesity Cataract CKD (chronic kidney disease) Depression HLD (hyperlipidemia) Diabetes HTN (hypertension) Sleep apnea History of kidney stones History of in vitro fertilization Surgical History H/O breast biopsy History of ureteroscopy Hx of ectopic History of open heart surgery Family History Father Cancer Mother Epilepsia Dementia Brother Drug abuse Bipolar 1 disorder Son No problems noted. Social History Household Members: Spouse and Children Housing: House Do you presently have visiting nurse or other home services: No Alcohol intake: never Comment: pt refused red socks Patient Tobacco Use Status: Never used Tobacco Advance Directives Date on File: 04/12/24 service: No Review of Systems Const Denies body aches, Denies fever(s) and Reports weakness Card Denies chest pain Resp Denies cough GI Denies abdominal pain Reports no additional complaints Neuro Reports weakness Physical Exam Const Other: Morbidly obese General: comfortable and no acute distress Resp Effort & Inspection: normal respiratory effort Cardio Rate: regular rate GI Palpation (GI): Soft to palpation, not firm, nontender and no guarding Assessment & Plan Assessment & Plan (1) Perinephric fluid collection: Code(s): N28.89 - Other specified disorders of kidney and ureter Category: Medical Plan: Drains have been removed She looks well Abdomen soft and benign She still has some muscle weakness - magnesium was low as outpatient, supplemented Repeat CT scan scheduled in 2 weeks I will see her thereafter She has a follow-up with Urology today Coding Level of Care Code Est Pt Level 3 (72028) Diagnoses Perinephric fluid collection N28.89
== END 2024-07-11 09:09 | disposition home or self-care (01) ==
PROVIDERS: PCP Internal Medicine; Visit Provider Surgery
DX: N28.89 Other specified disorders of kidney and ureter (principal)
CPT/HCPCS: 99213

== ENCOUNTER → 2024-07-11 08:51 | Outpatient (BNVA) | payer OTHER, SELFPAY | PROVIDERS: PCP Internal Medicine; Visit Provider Surgery ==

== ENCOUNTER 2024-08-01 15:19 | Outpatient (REF) | payer OTHER, SELFPAY ==
--- NOTE | ~2024-08-01 | CT_ITS ---
EXAMINATION: CT ABDOMEN AND PELVIS WITHOUT AND WITH CONTRAST CLINICAL INFORMATION: Renal and perinephric abscess COMPARISON: CT guided drainage from 06/26/2024, CT abdomen from 05/31/2024 TECHNIQUE: Multidetector volumetric imaging was performed of the abdomen and pelvis before and after the IV administration of 100 mL of Omnipaque 300 intravenous contrast. Sagittal and coronal reformatted images were obtained on the technologist's workstation. This CT examination was performed using dose optimization techniques as appropriate, variously including the following: *Automated exposure control *Adjustment of mA and/or kV according to patient size (this includes techniques or standardized protocols for targeted exams where dose is matched to indication/reason for exam; i.e. extremities or head) *Use of iterative reconstruction technique DLP: 1607 mGy-cm FINDINGS: LUNG BASES: The visualized lung bases are unremarkable. LIVER, GALLBLADDER, AND BILIARY TREE: The liver is normal in size and shape. Decreased hepatic attenuation suggesting hepatic steatosis. No focal hepatic lesion or biliary ductal dilatation is present. The gallbladder is unremarkable with no evidence of radiopaque gallstones, gallbladder wall thickening, or obvious pericholecystic inflammatory changes. PANCREAS: Previously identified pancreatic tail cystic focus demonstrates interval increase in size now measuring approximately 1.9 x 1.7 cm previously measuring 5.2 x 3.7 x 3.2 cm. Interval removal of percutaneous catheter in this region. Remaining portions of the pancreas are unremarkable. SPLEEN: Spleen is enlarged measuring 13.6 cm. ADRENAL GLANDS: Unremarkable KIDNEYS AND URETERS: Interval removal of left percutaneous left perinephric abscess catheter. Interval decrease of previously identified left perinephric collection now measuring approximately 4.3 x 1.5 cm previously measuring 4.0 x 2.4 x 3.8 cm with a residual amount of perinephric fluid noted. Interval removal of left double-J nephroureteral stents. Left-sided nephrolithiasis noted the largest appearing in the left lower renal pelvis measuring 1.3 cm. A few calculi are noted in the left ureter along its proximal aspect measuring 3 mm and its distal aspect measuring 5 mm. No right-sided nephrolithiasis or hydronephrosis. Simple appearing cystic focus right renal upper pole, not requiring follow-up. BLADDER: Unremarkable . Urinary bladder fills appropriately and postcontrast imaging. GASTROINTESTINAL TRACT: The small and large bowel are unremarkable. The appendix is unremarkable. ABDOMINAL WALL: Fat filled umbilical hernia. LYMPH NODES: No enlarged lymph nodes for size criteria. VASCULAR: Abdominal aorta is nonaneurysmal. PELVIC VISCERA: Anteverted uterus. OSSEOUS STRUCTURES: Multilevel degenerative changes of the thoracolumbar lumbosacral spine. CT/CT abdomen pelvis wo/w IV con IMPRESSION: 1. Interval removal of left percutaneous perinephric abscess catheter. Interval decrease of previously identified left perinephric collection now measuring approximately 4.3 x 1.5 cm previously measuring 4.0 x 2.4 x 3.8 cm with a residual amount of perinephric fluid noted. 2. Interval removal of left double-J nephroureteral stents. Left-sided nephrolithiasis noted the largest appearing in the left lower renal pelvis measuring 1.3 cm. A few calculi are noted in the left ureter along its proximal aspect measuring 3 mm and its distal aspect measuring 5 mm. 3. Previously identified pancreatic tail cystic focus/left perisplenic collection demonstrates interval increase in size now measuring approximately 1.9 x 1.7 cm previously measuring 5.2 x 3.7 x 3.2 cm. Interval removal of percutaneous catheter in this region. 4. Decreased hepatic attenuation suggesting hepatic steatosis. 5. Spleen is enlarged measuring 13.6 cm. Electronically signed by: Sukhjinder Bauer MD 08/04/2024 01:00 PM EDT
[2024-08-01] MEDS: iohexoL 350 MG/ML 100 ML INFUS..BTL 85 ML IV (16:52)
[2024-08-02 08:47] LABS: Creatinine POC 1.2 mg/dL (0.5-1.4); GFR POC 51
== END 2024-08-01 15:20 | disposition home or self-care (01) ==
LOC: HO.CT 15:19
PROVIDERS: PCP Internal Medicine; Visit Provider Urology
DX: N15.1 Renal and perinephric abscess (principal); N20.0 Calculus of kidney
CPT/HCPCS: 74178; 82565; Q9967

== ENCOUNTER 2024-08-03 10:50 | Outpatient (AMB) | payer OTHER, SELFPAY ==
--- NOTE | 2024-08-03 11:28 | A.OFFVIS_ITS ---
Vital Signs 08/03/24 11:30 Height 5 ft 5 in Weight 266 lb 12.149 oz BMI 44.4 Pulse 80 Intake Visit Reasons: s/p tube removal Intake Note: Patient presents for wound check status post drain removal. 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 Accompanied by: Self / Same As Patient Allergies sulfamethoxazole [From Bactrim] Allergy (Mild, Verified 08/04/24 15:15) Hives trimethoprim [From Bactrim] Allergy (Unknown, Verified 08/04/24 15:15) Anaphylaxis oxycodone Adverse Reaction (Intermediate, Verified 08/04/24 15:15) Flushing FISH Allergy (Unknown, Uncoded 08/04/24 15:15) Anaphylaxis Medication List - Last Reconciled 08/04/24 by Marco A Huddleston MD albuterol sulfate 90 mcg/actuation (Ventolin HFA) 2 puffs inhalation Q6H PRN budesonide-formoterol 160-4.5 mcg/actuation (Symbicort) 2 puffs inhalation BID cefuroxime axetil 500 mg PO BID citalopram 40 mg PO DAILY lisinopril 20 mg PO DAILY magnesium 250 mg PO DAILY meclizine 25 mg PO DAILY montelukast 10 mg PO BEDTIME norethindrone acetate 5 mg PO DAILY simvastatin 40 mg PO BEDTIME tirzepatide (Mounjaro) 7.5 mg subcut WE@0900 HPI HPI s/p tube removal: Details: She is currently feeling well. She had her drain removed from the left perinephric area last month She denies any GI complaints. She denies any significant pain and says that she feels ?great?. She denies any fever or chills. [facility] Medical History Hematoma of kidney Perinephric hematoma Asthma Benign paroxysmal positional vertigo Obesity Cataract CKD (chronic kidney disease) Depression HLD (hyperlipidemia) Diabetes HTN (hypertension) Sleep apnea History of kidney stones History of in vitro fertilization Surgical History H/O breast biopsy History of ureteroscopy Hx of ectopic History of open heart surgery Family History Father Cancer Mother Epilepsia Dementia Brother Drug abuse Bipolar 1 disorder Son No problems noted. Social History Household Members: Spouse and Children Housing: House Do you presently have visiting nurse or other home services: No Alcohol intake: never Comment: pt refused red socks Patient Tobacco Use Status: Never used Tobacco Advance Directives Date on File: 04/12/24 service: No Review of Systems Const Denies chills and Denies fever(s) Card Denies chest pain at rest GI Denies abdominal pain Denies difficulty voiding Physical Exam Vital Signs: Last Vital Signs Pulse 80 08/03/24 11:30 BMI result Body Mass Index 44.4 Const Other: Morbidly obese General: comfortable and no acute distress Resp Effort & Inspection: normal respiratory effort GI Palpation (GI): Soft to palpation, not firm and nontender Assessment & Plan Assessment & Plan (1) Perinephric fluid collection: Code(s): N28.89 - Other specified disorders of kidney and ureter Category: Medical Plan: She is doing well after removal of the drain last month. 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 Coding Level of Care Code Est Pt Level 3 (18555) Diagnoses Perinephric fluid collection N28.89
[2024-08-03 11:30] VITALS: PULSE 80; BMI 44.4
== END 2024-08-03 12:07 | disposition home or self-care (01) ==
PROVIDERS: PCP Internal Medicine; Visit Provider Surgery
DX: N28.89 Other specified disorders of kidney and ureter (principal)
CPT/HCPCS: 99213

== ENCOUNTER → 2024-08-03 10:50 | Outpatient (BNVA) | payer OTHER, SELFPAY | PROVIDERS: PCP Internal Medicine; Visit Provider Surgery ==

== ENCOUNTER 2024-08-04 15:00 | Outpatient (AMB) | payer OTHER, SELFPAY ==
--- NOTE | 2024-08-04 15:12 | A.OFFVIS_ITS ---
Intake Visit Reasons: 6w/CT (set) Intake Note: Patient is Present for 6w/CT Follow Up Urology Med:NONE Antibiotic Allergy: Sulfa, Trimethroprim Blood Thinner: None Brothel Keeper Required: No Allergies sulfamethoxazole [From Bactrim] Allergy (Mild, Verified 08/04/24 15:15) Hives trimethoprim [From Bactrim] Allergy (Unknown, Verified 08/04/24 15:15) Anaphylaxis oxycodone Adverse Reaction (Intermediate, Verified 08/04/24 15:15) Flushing FISH Allergy (Unknown, Uncoded 08/04/24 15:15) Anaphylaxis Medication List - Last Reconciled 08/04/24 by Justo Rodríguez MD albuterol sulfate 90 mcg/actuation (Ventolin HFA) 2 puffs inhalation Q6H PRN budesonide-formoterol 160-4.5 mcg/actuation (Symbicort) 2 puffs inhalation BID cefuroxime axetil 500 mg PO BID citalopram 40 mg PO DAILY cranberry extract 425 mg PO BID lisinopril 20 mg PO DAILY magnesium 250 mg PO DAILY meclizine 25 mg PO DAILY montelukast 10 mg PO BEDTIME norethindrone acetate 5 mg PO DAILY simvastatin 40 mg PO BEDTIME tirzepatide (Mounjaro) 7.5 mg subcut WE@0900 HPI Comments Details: 08/04/24--Gabriela was treated for perinephric abscess with placement of drain by Interventional Radiology. She is currently feeling well. She had her drain removed from the left perinephric area last month. She denies any GI complaints. She denies any significant pain and says that she feels ?great?. She denies any fever or chills. Plan stable for RTW. Cranberry suppluments. Metabolic w/u-[address] Review of chart: 06/20/24--Gabriela is here in follow-up. Since her last office visit the patient was hospitalized and treated for perinephric abscess with placement of drain by Interventional Radiology. During hospitalization she was also evaluated by General surgery as there was a question of a diverticular fistula. Currently the drain is putting out about 10 -15 mL per 24 hours. On evaluation there is purulent drainage in the CHARLENE drain. The patient denies pain she denies any fevers. She was seen by General surgery today note was reviewed I have reviewed Lasix renal scan which notes good function bilaterally. I have discussed changing the left ureteral stent. Before removing the CHARLENE drain would like to get a CT scan and if consideration for Interventional to inject the CHARLENE at time removal. Gabriela is stable to return to work on 06/27/2024. 05/18/24--Gabriela presents for telehealth follow-up. She states that she is feeling better she has less pain. She is drinking a lot of water throughout the day so that she is going frequently to the bathroom. Lasix renal scan is pending for June 07. Plan is to have her return to work next week without restrictions. The patient states that she does have 2 flights of stairs but then sits at a desk primarily during the day. 05/05/24--Gabriela is a 53-year-old female who was in the emergency room on 04/19 24 with pain. Comobidity, diabetes, morbid obesity. She has a history of left staghorn calculus. Due to the size of the staghorn calculus she had staged ureteroscopy. She is status post ureteroscopy on 12/28/2023 stent was placed at that time. She had repeat ureteroscopy on 02/08/2024 and there was residual stone. The patient presented to the emergency room on 03/02/2024 due to pain and fever CT imaging was notable for a subcapsular hematoma, a ureteral stent was placed on 03/03/2024. The patient was hospitalized again in March. CTA was performed on 04/08/24 without active extravasation or pseudoaneurysm. CT at that time also noted a 2nd hematoma. The patient was recently evaluated on 04/19/24 in the emergency room with complaints of pain. Workup was negative for infection. I have discussed with the patient that it will take several weeks for the hematomas to absorb. Follow-up renal ultrasound 04/25/2024 reviewed, Large left subcapsular hematoma compressing the left kidney, complex fluid collection between the left kidney and spleen, which was noted previously on CT imaging. I have discussed that is important to have limited strenuous activity. The patient states that she has had fatigue. I feel that it is medically indicated to have her out of work for a period of time. Will reassess in 2 weeks. Will check a Lasix renal scan andl also will review films with Interventional Radiology. FORMERLY [facility] Medical History Hematoma of kidney Perinephric hematoma Asthma Benign paroxysmal positional vertigo Obesity Cataract CKD (chronic kidney disease) Depression HLD (hyperlipidemia) Diabetes HTN (hypertension) Sleep apnea History of kidney stones History of in vitro fertilization Surgical History H/O breast biopsy History of ureteroscopy Hx of ectopic History of open heart surgery Family History Father Cancer Mother Epilepsia Dementia Brother Drug abuse Bipolar 1 disorder Son No problems noted. Social History Household Members: Spouse and Children Housing: House Do you presently have visiting nurse or other home services: No Alcohol intake: never Comment: pt refused red socks Patient Tobacco Use Status: Never used Tobacco Advance Directives Date on File: 04/12/24 service: No Results AMB Urinalysis, Automated UA Leukoctes 0 Luke/uL Last Edit by KEVIN Napier on 08/04/24 15:31 UA Nitrite Negative Last Edit by KEVIN Napier on 08/04/24 15:31 UA Urobilinogen 0.2 mg/dL Last Edit by KEVIN Napier on 08/04/24 15:3 1 UA Protein 15 mg/dL Last Edit by KEVIN Napier on 08/04/24 15:31 UA pH 6.0 Last Edit by KEVIN Napier on 08/04/24 15:31 UA Blood 25 Tacos/uL Last Edit by KEVIN Napier on 08/04/24 15:31 UA Specific [place] 1.025 Last Edit by KEVIN Napier on 08/04/24 15: 31 UA Ketone Negative Last Edit by KEVIN Napier on 08/04/24 15:31 UA Bilirubin 0 mg/dL Last Edit by KVEIN Napier on 08/04/24 15:31 UA Glucose 0 mg/dL Last Edit by KEVIN Napier on 08/04/24 15:31 Results Reviewed Results Reviewed: Laboratory Last Values Urine pH (Auto) 6.0 08/04/24 15:30 Specific [place] (Auto) 1.025 08/04/24 15:30 Urine Protein (Auto) 15 mg/dL 08/04/24 15:30 Glucose (UA)(Auto) 0 mg/dL 08/04/24 15:30 Urine Ketones (Auto) Negative 08/04/24 15:30 Urine Blood (Auto) 25 Tacos/uL 08/04/24 15:30 Urine Nitrite (Auto) Negative 08/04/24 15:30 Urine Bilirubin (Auto) 0 mg/dL 08/04/24 15:30 Urine Urobilinogen (Auto) 0.2 mg/dL 08/04/24 15:30 Leukocyte Esterase (Auto) 0 Luke/uL 08/04/24 15:30 AMIRAH: 02/08/24-1702 STATUS: COMP REQ : [id number] RECD: 02/09/24 [facility] DR: Dangelo Bonilla MD COMP: 02/19/24-155 ENTERED: 02/09/24-12[address] [facility] [address]: Eva Patrick MD ORDERED: Kidney Stone QUERIES: Kidney Stone Source: [id number] Test Result Flag Reference Component 1 SEE NOTE Uric Acid Dihydrate 50% Calcium Oxalate Monohydrate (Whewellite) 50% See Note 1 Stone Weight 0.108 g Note 1 This test was developed and its analytical performance characteristics have been determined by [employer]. It has not been cleared or approved by the FDA. This assay has been validated pursuant to the CLIA regulations and is used for clinical purposes. THIS TEST WAS PERFORMED AT: [email or web address] [facility] [id number] [place] [address] YOSEF DIAS MD Stone Source LEFT RENAL STONE Date of Service: 08/01/24 CT ABDOMEN AND PELVIS WITHOUT AND WITH CONTRAST CLINICAL INFORMATION: Renal and perinephric abscess COMPARISON: CT guided drainage from 06/26/2024, CT abdomen from 05/31/2024 TECHNIQUE: Multidetector volumetric imaging was performed of the abdomen and pelvis before and after the IV administration of 100 mL of Omnipaque 300 intravenous contrast. Sagittal and coronal reformatted images were obtained on the technologist's workstation. This CT examination was performed using dose optimization techniques as appropriate, variously including the following: *Automated exposure control *Adjustment of mA and/or kV according to patient size (this includes techniques or standardized protocols for targeted exams where dose is matched to indication/reason for exam; i.e. extremities or head) *Use of iterative reconstruction technique DLP: 1607 mGy-cm FINDINGS: LUNG BASES: The visualized lung bases are unremarkable. LIVER, GALLBLADDER, AND BILIARY TREE: The liver is normal in size and shape. Decreased hepatic attenuation suggesting hepatic steatosis. No focal hepatic lesion or biliary ductal dilatation is present. The gallbladder is unremarkable with no evidence of radiopaque gallstones, gallbladder wall thickening, or obvious pericholecystic inflammatory changes. PANCREAS: Previously identified pancreatic tail cystic focus demonstrates interval increase in size now measuring approximately 1.9 x 1.7 cm previously measuring 5.2 x 3.7 x 3.2 cm. Interval removal of percutaneous catheter in this region. Remaining portions of the pancreas are unremarkable. SPLEEN: Spleen is enlarged measuring 13.6 cm. ADRENAL GLANDS: Unremarkable KIDNEYS AND URETERS: Interval removal of left percutaneous left perinephric abscess catheter. Interval decrease of previously identified left perinephric collection now measuring approximately 4.3 x 1.5 cm previously measuring 4.0 x 2.4 x 3.8 cm with a residual amount of perinephric fluid noted. Interval removal of left double-J nephroureteral stents. Left-sided nephrolithiasis noted the largest appearing in the left lower renal pelvis measuring 1.3 cm. A few calculi are noted in the left ureter along its proximal aspect measuring 3 mm and its distal aspect measuring 5 mm. No right-sided nephrolithiasis or hydronephrosis. Simple appearing cystic focus right renal upper pole, not requiring follow-up. BLADDER: Unremarkable . Urinary bladder fills appropriately and postcontrast imaging. GASTROINTESTINAL TRACT: The small and large bowel are unremarkable. The appendix is unremarkable. ABDOMINAL WALL: Fat filled umbilical hernia. LYMPH NODES: No enlarged lymph nodes for size criteria. VASCULAR: Abdominal aorta is nonaneurysmal. PELVIC VISCERA: Anteverted uterus. OSSEOUS STRUCTURES: Multilevel degenerative changes of the thoracolumbar lumbosacral spine. IMPRESSION: 1. Interval removal of left percutaneous perinephric abscess catheter. Interval decrease of previously identified left perinephric collection now measuring approximately 4.3 x 1.5 cm previously measuring 4.0 x 2.4 x 3.8 cm with a residual amount of perinephric fluid noted. 2. Interval removal of left double-J nephroureteral stents. Left-sided nephrolithiasis noted the largest appearing in the left lower renal pelvis measuring 1.3 cm. A few calculi are noted in the left ureter along its proximal aspect measuring 3 mm and its distal aspect measuring 5 mm. 3. Previously identified pancreatic tail cystic focus/left perisplenic collection demonstrates interval increase in size now measuring approximately 1.9 x 1.7 cm previously measuring 5.2 x 3.7 x 3.2 cm. Interval removal of percutaneous catheter in this region. 4. Decreased hepatic attenuation suggesting hepatic steatosis. 5. Spleen is enlarged measuring 13.6 cm. Date of Service: 06/15/24 NM RENOGRAM WITH LASIX CLINICAL INFORMATION: Minor contusional left kidney. Subsequent encounter. COMPARISON: CT of the abdomen and pelvis done on 04/11/2024, 05/23/2024 and 05/25/2024 and 06/10/2024. TECHNIQUE: Dynamic renal scintigraphy was performed after intravenous administration of 10 mCi Tc-99m Technetium 99m DTPA 40 mg of furosemide was administered at 30 minutes and continued dynamic imaging of the abdomen/pelvis was obtained for a total of 50 minutes. The imaging was stopped at 20 minutes post Lasix injection since patient needed to go to the bathroom. FINDINGS: Left kidney 53.5% and the right kidney 46.5% of total renal uptake. Left Kidney: Normal perfusion. Following administration of furosemide, there is progressive washout of radiotracer noted from the left renal pelvicalyceal system before and after administration of Lasix. The patient is known to have an internal left-sided ureteric stent. Right Kidney: Normal perfusion. Following administration of furosemide, there is progressive washout noted before and after administration of Lasix. No meaningful T1/ 2 of Lasix could be calculated on either side given progressive washout started before administration of Lasix on both sides. Other: The urinary bladder is well-visualized. No evidence of any reflux on post void images. IMPRESSION: 1. Differential renal function: Left 53.5%, Right 46.5%. 2. Left kidney has nonobstructing parameters after diuresis. The patient is known to have internal ureteric stent. 3. Right kidney has nonobstructing parameters after diuresis. Date of Service: 05/31/24 CT ABDOMEN AND PELVIS WITHOUT CONTRAST CLINICAL INFORMATION: Abscess follow-up COMPARISON: CT abdomen pelvis 05/23/2024. CT guided abscess drainage 05/25/2024. CT angiogram abdomen pelvis 04/08/2024. TECHNIQUE: Multidetector volumetric imaging was performed from the superior aspect of the liver through the pubic symphysis. Sagittal and coronal reformatted images were obtained on the technologist's workstation. This CT examination was performed using dose optimization techniques as appropriate, variously including the following: *Automated exposure control *Adjustment of mA and/or kV according to patient size (this includes techniques or standardized protocols for targeted exams where dose is matched to indication/reason for exam; i.e. extremities or head) *Use of iterative reconstruction technique DLP: 891.63 mGy-cm FINDINGS: LUNG BASES: The visualized lung bases are unremarkable. LIVER, GALLBLADDER, AND BILIARY TREE: The liver is normal in size and shape with slightly decreased attenuation suggesting hepatic steatosis. No focal hepatic lesion or biliary ductal dilatation is present. The gallbladder is unremarkable with no evidence of radiopaque gallstones, gallbladder wall thickening, or obvious pericholecystic inflammatory changes. PANCREAS: A cyst is present in the pancreatic tail with surrounding inflammatory change measuring 5.3 x 3.7 x 3.2 cm which has decreased in size since 05/23/2024 when this measured 7.6 x 4.8 cm in transverse dimension. SPLEEN: Spleen is enlarged at 13.9 cm. ADRENAL GLANDS: Unremarkable. KIDNEYS AND URETERS: The catheter that was placed into the perirenal space remains and the perirenal/subcapsular collection previously seen has significantly decreased in size. Without IV contrast it is difficult to assess the remaining size but this appears to measure only about 4.0 x 2.4 x 3.8 cm. The catheter is at the left lateral edge of the collection. A few air bubbles are seen within the collection. A double-J left internally dwelling ureteral stent is present. There is no left-sided hydronephrosis. There is a small 3 mm round calcification seen in the left renal hilum consistent with a stone also present on 05/23/2024. The right kidney is normal with a 2.2 cm benign Bosniak class I cyst at the upper pole which requires no additional imaging or follow-up. 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 BLADDER: Unremarkable. GASTROINTESTINAL TRACT: The small and large bowel are unremarkable. The appendix is unremarkable. ABDOMINAL WALL: No significant hernia is appreciated. Tiny periumbilical hernia containing only fat. Above-mentioned drainage catheter left abdominal wall. LYMPH NODES: No retroperitoneal lymphadenopathy. VASCULAR: Unremarkable. PELVIC VISCERA: The uterus and adnexa are unremarkable. OSSEOUS STRUCTURES: Unremarkable. IMPRESSION: 1. The left perirenal/subcapsular collection has significantly decreased in size. The catheter remains in place. 2. 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 3. A cyst is present in the pancreatic tail with surrounding inflammatory change which has decreased in size since 05/23/2024. Date of Service: 04/25/24 EXAMINATION: US RETROPERITONEAL LIMITED (RENAL ONLY) CLINICAL INFORMATION: Calculus of kidney. COMPARISON: Multiple CT scans of the abdomen and pelvis most recently 04/19/2024 TECHNIQUE: Ultrasound of the kidneys was performed FINDINGS: RIGHT KIDNEY: 13.5 x 5.0 x 6.0 cm (SAG x AP x TRV). The kidney is normal in size, contour, and echogenicity. Renal cortical thickness is normal. No calculi . No hydronephrosis. A benign upper pole 2.5 cm Bosniak class I renal cyst is noted which requires no additional imaging or follow up. No solid renal masses are seen. LEFT KIDNEY: 15.6 x 5.2 x 5.5 cm (SAG x AP x TRV). The kidney is normal in size but is compressed by a large subcapsular hematoma measuring 16.3 x 8.3 x 12.7 cm. Similar findings could be seen on the prior CT scan. In addition, there is another complex fluid collections seen in between the kidney and spleen measuring 11.0 x 9.8 x 11.0 which could also be seen on the prior CT scan. Renal cortical thickness is difficult to assess because of compression. No calculi or hydronephrosis. IMPRESSION: 1. Large left subcapsular hematoma compressing the left kidney. 2. Complex fluid collection between the left kidney and spleen, probably a hematoma as well. 3. No renal calculi are seen. Date of Service: 04/19/24 EXAMINATION: CT ABDOMEN AND PELVIS WITHOUT CONTRAST CLINICAL INFORMATION: Left flank pain COMPARISON: Multiple priors, most recent 04/08/2024 TECHNIQUE: Multidetector volumetric imaging was performed from the superior aspect of the liver through the pubic symphysis. Sagittal and coronal reformatted images were obtained on the technologist's workstation. This CT examination was performed using dose optimization techniques as appropriate, variously including the following: *Automated exposure control *Adjustment of mA and/or kV according to patient size (this includes techniques or standardized protocols for targeted exams where dose is matched to indication/reason for exam; i.e. extremities or head) *Use of iterative reconstruction technique DLP: 1074 mGy-cm FINDINGS: LUNG BASES: The visualized lung bases are unremarkable. LIVER, GALLBLADDER, AND BILIARY TREE: The liver is normal in size, shape, and attenuation. No focal hepatic lesion or biliary ductal dilatation is identified on this noncontrast exam. The gallbladder is unremarkable with no evidence of radiopaque gallstones, gallbladder wall thickening, or obvious pericholecystic inflammatory changes. PANCREAS: Parenchyma appears grossly unremarkable. Fluid collection adjacent to the pancreatic tail as described below. SPLEEN: Unremarkable. ADRENAL GLANDS: Unremarkable. KIDNEYS AND URETERS: Limited evaluation in the absence of intravenous contrast. There is a subcapsular collection along the lateral margin of the left kidney measuring up to approximately 13.4 x 10.7 cm on image 49/106, previously 13.1 x 10.0 cm when measured in similar fashion. Anteriorly this measures approximately -4 Hounsfield units, versus 22 Hounsfield units previously. There is also an enlarging collection superior to the left kidney adjacent to the pancreatic tail, measuring approximately 11.3 x 8.9 cm and -9 Hounsfield units currently versus 7.9 x 4.8 cm and 16 Hounsfield units previously. Surrounding stranding is present. A left ureteral stent is present extending from the renal pelvis to the bladder. No significant hydronephrosis. Multiple calcifications are present in the left renal pelvis and calyces, with largest fragment in the pelvis suspected to measure up to approximately 1.3 cm. No right-sided hydronephrosis or calculus. Small right upper pole renal cyst; no follow-up recommended. BLADDER: Mildly distended. Left ureteral stent terminates in the bladder. GASTROINTESTINAL TRACT: No evidence of bowel obstruction or significant wall thickening. The appendix is unremarkable. No free air is seen. ABDOMINAL WALL: No significant hernia is appreciated. LYMPH NODES: Scattered mesenteric and retroperitoneal subcentimeter lymph nodes are present, without significant enlargement by size criteria. VASCULAR: Unremarkable. PELVIC VISCERA: Grossly unremarkable. OSSEOUS STRUCTURES: Degenerative changes of the lower thoracic spine. IMPRESSION: 1. Limited evaluation of renal parenchyma in the absence of intravenous contrast. Large subcapsular collection/evolving hematoma along the lateral margin of the left kidney appears similar to possibly minimally increased in size to 04/08/2024. However, an additional collection superior to the left kidney adjacent to the pancreatic tail has increased in size compared to prior, measuring up to 11.3 cm in greatest dimension currently versus 7.9 cm previously. This may also represent an evolving hematoma, as internal density is similar to the renal subcapsular collection. In the proper clinical setting, a pancreatic pseudocyst could have a similar appearance. 2. Left ureteral stent in place, without hydronephrosis. Multiple calcifications in the left renal pelvis and calyces, with largest fragment in the pelvis measuring up to 1.3 cm. Date of Service: 04/08/24 EXAMINATION: CT ANGIOGRAPHY ABDOMEN WITH CONTRAST CLINICAL INFORMATION: Kidney hematoma, r o ongoing bleeding, source ? COMPARISON: CT abdomen/pelvis 04/07/2024 TECHNIQUE: Initial noncontrast localizing patient relations manager images were obtained. A timing bolus at the level of the celiac artery was calculated. Subsequently, arterial phase multidetector volumetric imaging was performed through the abdomen following the administration of 100 mL Omnipaque 350 intravenous contrast. No contrast reaction reported. Sagittal and coronal reformatted images were obtained on the technologist workstation. After extensive post-processing on a dedicated 3-D workstation, 3-D reformatted images were uploaded to PACS and reviewed as well. This CT examination was performed using dose optimization techniques as appropriate, variously including the following: *Automated exposure control *Adjustment of mA and/or kV according to patient size (this includes techniques or standardized protocols for targeted exams where dose is matched to indication/reason for exam; i.e. extremities or head) *Use of iterative reconstruction technique DLP: 632 mGy-cm FINDINGS: VASCULAR FINDINGS: Aorta: No aneurysm or dissection of the abdominal aorta. No penetrating atheromatous ulcer. Mesenteric Arteries: Celiac artery is patent. Superior mesenteric artery patent. Inferior mesenteric artery patent. Renal arteries: Single renal arteries bilaterally. Renal arteries are patent and without stenosis or other vascular anomaly. Iliac arteries: The common iliac arteries are patent. NONVASCULAR: Lung Bases: The visualized lung bases are clear. Liver: Homogeneous in attenuation. Normal in size. Gallbladder: Noninflamed. Biliary System: No intrahepatic or extrahepatic biliary dilation. Pancreas: Homogeneous in attenuation. Pancreatic tail collection. Spleen: Normal in size. Genitourinary: Large left subcapsular hematoma measuring 12.8 x 9.8 x 14.6 cm resulting in extrinsic compression of the renal parenchyma. No focal pseudoaneurysm or active extravasation is identified in the region of the hematoma. Partially evaluated left renal collecting system stent. No renal calculi. No hydroureteronephrosis. Adrenal Glands: Unremarkable. Gastrointestinal: The visualized alimentary tract is normal in course. No evidence of obstruction. Peritoneum: No pneumoperitoneum. Pancreatic tail intraperitoneal fluid collection measuring 8 x 4.4 x 3.4 cm, likely a hematoma. Lymph Nodes: No pathologically enlarged abdominal or pelvic lymph nodes. Soft Tissues/Musculoskeletal: There is no acute fracture or significant focal osseous lesion. IMPRESSION: 1. Large left subcapsular renal hematoma measuring 12.8 x 9.8 x 14.6 cm without active extravasation or pseudoaneurysm. 2. Intraperitoneal fluid collection near the pancreatic tail measuring 8 x 4.4 x 3.4 cm. When compared to prior noncontrast CT study performed 04/07/2024, the size of this is unchanged. Date of Service: 03/02/24 EXAMINATION: CT ABDOMEN AND PELVIS WITHOUT CONTRAST CLINICAL INFORMATION: Fever after urologic procedure COMPARISON: Cystoscopy and left ureteroscopy 02/08/2024, CT abdomen pelvis 08/13/2023 TECHNIQUE: Multidetector volumetric imaging was performed from the superior aspect of the liver through the pubic symphysis. Sagittal and coronal reformatted images were obtained on the technologist's workstation. This CT examination was performed using dose optimization techniques as appropriate, variously including the following: *Automated exposure control *Adjustment of mA and/or kV according to patient size (this includes techniques or standardized protocols for targeted exams where dose is matched to indication/reason for exam; i.e. extremities or head) *Use of iterative reconstruction technique DLP: 1139 mGy-cm FINDINGS: LUNG BASES: The visualized lung bases are unremarkable. LIVER, GALLBLADDER, AND BILIARY TREE: The liver is normal in size, shape, and attenuation. No focal hepatic lesion or biliary ductal dilatation is present. The gallbladder is unremarkable with no evidence of radiopaque gallstones, gallbladder wall thickening, or obvious pericholecystic inflammatory changes. PANCREAS: Unremarkable. SPLEEN: Unremarkable. ADRENAL GLANDS: Unremarkable. KIDNEYS AND URETERS: Right: At the upper pole the right kidney there is a 1.8 cm benign cyst which needs no additional imaging or follow-up. The kidney otherwise appears unremarkable without stones, hydronephrosis or suspicious masses. The right ureter is nondilated. Left: There is a moderate-sized subcapsular hematoma around the left kidney with a rind as thick as 2 cm. Some blood is also present in the perinephric space. A small bilateral parotid surrounds the proximal left ureter. The left ureter is not dilated. Large staghorn type calculi are present in the left renal pelvis with the largest measuring 2.1 cm there is left-sided pelvocaliectasis and multiple intrarenal nonobstructing calculi present. BLADDER: Unremarkable. GASTROINTESTINAL TRACT: The small and large bowel are unremarkable. The appendix is unremarkable. ABDOMINAL WALL: No significant hernia is appreciated. LYMPH NODES: No retroperitoneal lymphadenopathy. VASCULAR: Unremarkable. PELVIC VISCERA: The uterus and adnexa are unremarkable. OSSEOUS STRUCTURES: Mild degenerative changes are present in the lower thoracic spine. No bony destructive lesions. IMPRESSION: 1. Moderate-sized subcapsular hematoma around the left kidney with some blood in the perinephric space. 2. Large calculi in the left renal pelvis with left-sided pelvocaliectasis and multiple left-sided intrarenal nonobstructing calculi. 3. Other incidental findings as described above. Assessment & Plan Assessment & Plan (1) Perinephric abscess: Code(s): N15.1 - Renal and perinephric abscess Category: Medical (2) Staghorn calculus: Code(s): N20.0 - Calculus of kidney Category: Medical Plan cranberry increase citrate in diet [address] in 10 weeks Orders: Orders AMB Urinalysis Automated 08/04/24 Z13.9 - Encounter for screening, unspecified Medications: New cranberry extract administer with meals 425 mg PO BID 60 caps 5RF Patient Instructions: The patient had an opportunity to ask questions regarding treatment plan. The patient expressed understanding and agreement with the above treatment plan. The patient is aware they should contact our office by phone for worsening of their current condition or the appearance of new symptoms. Compliance is encouraged with any medications and followup testing that is ordered. It is a privilege to be allowed the opportunity to participate in the urologic care of your patient. If you have any questions or concerns regarding treatment for the above conditions please do not hesitate to contact me. The office telephone contact is [phone]. This note is constructed in part using voice recognition software. While every effort has been made to ensure accuracy fish flipper errors may have been included. Yours sincerely, Justo Rodríguez MD Coding Level of Care Code Est Pt Level 4 (35251) Diagnoses Perinephric abscess N15.1 Staghorn calculus N20.0
== END 2024-08-04 15:55 | disposition home or self-care (01) ==
PROVIDERS: PCP Internal Medicine; Visit Provider Urology
DX: N15.1 Renal and perinephric abscess (principal); N20.0 Calculus of kidney
CPT/HCPCS: 99214

== ENCOUNTER → 2024-08-04 15:00 | Outpatient (BNVA) | payer OTHER, SELFPAY | PROVIDERS: PCP Internal Medicine; Visit Provider Urology | DX: N15.1 Renal and perinephric abscess (principal); N20.0 Calculus of kidney; Z98.890 Other specified postprocedural states | CPT/HCPCS: 81003 ==

== ENCOUNTER 2025-05-09 12:47 | Inpatient (IN) | payer OTHER, SELFPAY ==
--- NOTE | ~2025-05-09 | CT_ITS ---
CLINICAL HISTORY: abd pain CT abdomen and pelvis with contrast Comparison: None provided Findings: No consolidation or effusion. Hepatomegaly. Asymmetric patchy hypoenhancement throughout the left kidney with perirenal stranding and an ill-defined peripherally enhancing subcapsular collection suspected measuring 1.3 x 2.7 cm on coronal series 5, image 64, concerning for possible abscess with pyelonephritis. Scattered left renal calculi largest of the ureteropelvic junction measuring 1.4 cm. No significant hydronephrosis. Right-sided hypodense renal cysts. No bowel obstruction, pneumoperitoneum, or pneumatosis. Fat containing umbilical hernia. Small right ovarian cyst measuring 2 cm. This may be further evaluated with ultrasound. Normal appendix. Bladder is decompressed with mural thickening, nonspecific. Osteopenia with diffuse multilevel spondylosis. IMPRESSION: 1. Findings concerning for left-sided pyelonephritis with possible small ill-defined subcapsular abscess. 2. Nonobstructive left renal calculi largest measuring 1.4 cm in the ureteropelvic junction. This document has been electronically signed by: Pro Gerber MD on 05/09/2025 18:20:30
[2025-05-09 12:50] VITALS: BP 136/81; PULSE 95; RESP 18; TEMP 37.1; O2SAT 96; BMI 48.4
--- NOTE | 2025-05-09 12:52 | ED.GENADULT ---
HPI - General Adult General Chief complaint: General Medical Stated complaint: Fluid build up, GI block? Time Seen by Provider: 05/09/25 13:50 Source: patient Mode of arrival: ambulatory Limitations: no limitations History of Present Illness ED Provider: Ly Houston PA-C HPI narrative: Patient is a 54 year old assigned female at with a history of nephrolithiasis requiring stent placement (staghorn), left subscapular hematoma, diabetes, HTN, asthma, HLD, and left perinephric abscess requiring CHARLENE drain (07/16) presenting to the emergency department today with lower abdominal pain, diarrhea, and sulfur burbs . Patient states that over the last week she has had lower abdominal pain, diarrhea, and burbs that taste like sulfur. Patient states that she is concerned she is going septic again like she was before and wants her issues resolved entirely . Patient denies any dizziness, lightheadedness, nausea, vomiting, fever, chills, blurry vision, double vision, loss of vision, chest pain, difficulty breathing, shortness of breath, back pain, night sweats, pain with urination, increased urinary frequency, increased urinary urgency, blood in her urine or stool, syncope or a near syncopal episode, recent trauma or falls, bowel incontinence, bladder incontinence, or any other complaints at this time. Onset (ago): week(s) (1) Relieving factors: none Exacerbating factors: none Associated symptoms: denies other symptoms Treatments prior to arrival: none Related Data Home Medications ?Medication ?Instructions ?Recorded ?Confirmed albuterol sulfate 90 mcg/actuation 2 puff inhalation Q6H PRN 09/17/23 08/04/24 aerosol inhaler (Ventolin HFA) Shortness Of Breath Or Wheezing citalopram 40 mg tablet 40 mg PO DAILY 09/17/23 08/04/24 lisinopril 20 mg tablet 20 mg PO DAILY 09/17/23 08/04/24 meclizine 25 mg tablet 25 mg PO DAILY Vertigo 09/17/23 08/04/24 simvastatin 40 mg tablet 40 mg PO BEDTIME 09/17/23 08/04/24 tirzepatide 7.5 mg/0.5 mL 7.5 mg subcut WE@0900 03/02/24 08/04/24 subcutaneous pen injector (Edison) budesonide-formoterol HFA 160 2 puff inhalation BID 05/24/24 08/04/24 mcg-4.5 mcg/actuation aerosol inhaler (Symbicort) montelukast 10 mg tablet 10 mg PO BEDTIME 05/24/24 08/04/24 norethindrone acetate 5 mg tablet 5 mg PO DAILY 05/24/24 08/04/24 Previous Rx's ?Medication ?Instructions ?Recorded cefuroxime axetil 500 mg tablet 500 mg PO BID #27 tabs 07/02/24 magnesium 250 mg tablet 250 mg PO DAILY #10 tabs 07/02/24 cranberry extract 425 mg capsule 425 mg PO BID #60 caps 08/04/24 Allergies Allergy/AdvReac Type Severity Reaction Status Date / Time sulfamethoxazole Allergy Mild Hives Verified 05/09/25 12:54 [From Bactrim] trimethoprim [From Bactrim] Allergy Unknown Anaphylaxis Verified 05/09/25 12:54 oxycodone AdvReac Intermediate Flushing Verified 05/09/25 12:54 FISH Allergy Unknown Anaphylaxis Uncoded 08/04/24 15:15 Review of Systems Constitutional: Constitutional: Reports no additional constitutional complaints, Denies chills, Denies fever(s) and Denies night sweats Eyes: Eyes: Reports no additional eye complaints, Denies blurry vision, Denies change in vision, Denies diplopia, Denies eye discharge, Denies loss of vision and Denies eye pain ENT: Denies dizziness Cardiovascular: Cardiovascular: Reports no additional cardiovascular complaints, Denies chest pain, Denies lightheadedness, Denies Loss of Consciousness and Denies dyspnea Respiratory: Respiratory: Reports no additional respiratory complaints and Denies dyspnea Gastrointestinal: Gastrointestinal: Reports no additional gastrointestinal complaints, Reports abdominal pain, Denies melena, Denies hematochezia, Denies change in bowel habits, Denies change in stool character, Reports diarrhea, Denies nausea and Denies vomiting Genitourinary: Genitourinary: Denies hematuria, Denies urinary frequency, Denies dysuria, Denies urinary incontinence, Denies urinary hesitancy and Denies urinary urgency Musculoskeletal: Musculoskeletal: Reports no additional musculoskeletal complaints, Denies numbness and Denies tingling Neurologic: Denies dizziness, Denies loss of vision, Denies numbness and Denies tingling Psychiatric: Psychiatric: Reports no additional psychiatric complaints Endocrine: Endocrine: Reports no additional endocrine complaints Hematologic/Lymphatic: Hematologic/Lymphatic: Reports no additional hematologic/lymphatic complaints Allergic/Immunologic: Allergic/Immunologic: Reports no additional allergic/immunologic complaints PMFSH Past Medical History Attestation statement: The following information was validated with the patient. Source: old records reviewed and nursing notes reviewed Medical History Hematoma of kidney Perinephric hematoma Asthma Benign paroxysmal positional vertigo Obesity Cataract CKD (chronic kidney disease) Depression HLD (hyperlipidemia) Diabetes HTN (hypertension) Sleep apnea History of kidney stones History of in vitro fertilization Surgical History H/O breast biopsy History of ureteroscopy Hx of ectopic History of open heart surgery Family History Family History Father Cancer Mother Epilepsia Dementia Brother Drug abuse Bipolar 1 disorder Son No problems noted. Social History Social History Household Members: Spouse and Children Housing: House Do you presently have visiting nurse or other home services: No Alcohol intake: never Comment: pt refused red socks Patient Tobacco Use Status: Never used Tobacco Smoked in Last 30 Days: No Use of substances other than those prescribed or required for medical reasons: No Advance Directives: Yes Advance Directives on File: Yes Advance Directives Date on File: 04/12/24 Do you have a plan to hurt others: No Plan Patient : No service: No Physical Exam ED Vital Signs: Vital Signs - 24 hr 05/09/25 12:50 05/09/25 14:20 05/09/25 16:00 Temperature 98.8 F Pulse Rate 95 89 Respiratory Rate 18 18 20 Blood Pressure 136/81 124/69 Pulse Oximetry 96 94 Oxygen Delivery Method Room Air Room Air 05/09/25 18:39 Temperature 97.9 F Pulse Rate 91 Respiratory Rate 17 Blood Pressure 128/65 Pulse Oximetry 95 Oxygen Delivery Method Room Air BMI result Body Mass Index 48.4 Const General: cooperative, no acute distress, alert and awake Nutritional Appearance: well nourished and obese morbidly obese Orientation/consciousness: patient oriented x3 HENMT Head: Yes normal to inspection and Yes atraumatic Ears: hearing grossly normal bilaterally and external ears normal General nose exam: Normal external nose present, no nasal discharge noted and no epistaxis Face and sinus: Yes normal facial exam, No abrasion and No laceration Mouth: Normal oral and palatal mucosa present, no drooling and no muffled voice Eyes General: appearance normal, both eyes and all related structures Periorbital: periorbital findings normal Eyelids: Yes eyelids normal Conjunctivae: conjunctivae normal Pupils: Equal, round and reactive pupils present EOM: EOMs intact bilaterally Neck Neck: Yes normal visual inspection, Yes full ROM and Yes no lymphadenopathy Resp Effort & Inspection: normal respiratory effort and able to speak in complete sentences Neuro General: patient oriented x3, moves all extremities and CN's II-XI intact bilaterally Cranial nerves: Yes Equal, round and reactive pupils present Cognition (Neuro): normal cognition Extrem General: Yes normal to inspection, Yes full ROM and Yes capillary refill normal Psych Appearance: grossly normal Mental Status: mental status grossly normal Affect: normal affect Attitude: cooperative Thought process: Normal thought process present Thought content: Normal thought content present Insight: Good insight present (Psych) Course Course Course Narrative: 54-year-old female presents for evaluation of general malaise and weakness. She has a history of complicated left perinephric abscess and feels similar. Plan for labs including blood cultures, urinalysis. She is afebrile and well-appearing in triage Medications Administered Discontinued Medications Generic Name Dose Route Start Last Admin Trade Name Freq PRN Reason Stop Dose Admin Al Hydroxide/Mg Hydroxide 15 ml 05/09/25 14:12 05/09/25 14:19 Magnesium Hydrox/Alum Hydrox 30 Ml Oral.Susp PO 05/09/25 14:13 15 ml ONCE ONE Administration Ceftriaxone Sodium 1 gm 05/09/25 15:36 05/09/25 15:44 Ceftriaxone Sodium 1 Gm Vial IVPUSH 05/09/25 15:37 1 gm ONCE ONE Administration Famotidine 20 mg 05/09/25 14:12 05/09/25 14:20 Famotidine/Pf 20 Mg/2 Ml Vial IVPUSH 05/09/25 14:13 20 mg ONCE ONE Administration Iohexol 100 ml 05/09/25 17:29 05/09/25 17:29 Iohexol 350 Mg/Ml 100 Ml Infus..Btl IV 05/09/25 17:30 100 ml ONCE ONE Administration Morphine Sulfate 4 mg 05/09/25 14:12 05/09/25 14:20 Morphine Sulfate 4 Mg/Ml Cartridge IVPUSH 05/09/25 14:13 4 mg ONCE ONE Administration Protocol Ondansetron HCl 4 mg 05/09/25 14:12 05/09/25 14:19 Ondansetron Hcl 4 Mg/2 Ml Vial IVPUSH 05/09/25 14:13 4 mg ONCE ONE Administration Ondansetron HCl 4 mg 05/09/25 15:36 05/09/25 15:44 Ondansetron Hcl 4 Mg/2 Ml Vial IVPUSH 05/09/25 15:37 4 mg ONCE ONE Administration Pantoprazole Sodium 40 mg 05/09/25 14:12 05/09/25 14:19 Pantoprazole Sodium 40 Mg/10 Ml Vial IVPUSH 05/09/25 14:13 40 mg ONCE ONE Administration Medical Decision Making Medical Decision Making [facility] Narrative: Patient is a 54 year old assigned female at with a history of nephrolithiasis requiring stent placement (staghorn), left subscapular hematoma, diabetes, HTN, asthma, HLD, and left perinephric abscess requiring CHARLENE drain (07/16) presenting to the emergency department today with lower abdominal pain, diarrhea, and sulfur burbs . Patient's blood work showed WBC of 11.9, BUN 19, CR 1.3, and lipase of 91. Patient's urine showed moderate blood, small leuks, >20 RBC, 6-10 WBC, trace bacteria, and 3-[address] abdomen/pelvis showed left sided pyelo with possible small / ill-defined subcapsular abscess and a nonobstructing left stone measuring 1.4cm in the ureteropelvic junction. I explained my physical exam findings as well as all test results to the patient. I answered all questions asked by the patient. Patient received IV Morphine, a GI cocktail, and ceftriaxone which, upon re-evaluation, she stated it helped her symptoms some. Patient did have an episode of vomiting while in the department. Patient's clinical presentation is not consistent with sepsis (@1850). I spoke with the urologist wildland fire operations specialist, Dr. Ochoa, who recommended admission to medicine for continued IV antibiotics and monitoring with need for possible IR intervention. I spoke with the hospitalist team who agreed to admission. Patient verbalized agreement and understanding with this treatment plan and admission. Differential Diagnosis Differential Diagnoses: The differential diagnosis associated with the presentation includes UTI Pyelonephritis Subscapular abscess Admission/Observation Consideration of admission/observation: Escalation of care including admission/observation considered Patient admitted as noted in the MDM Rationale portion of this note. Consult Healthcare Provider Management of the patient was discussed with: Hospitalist (Agreed to admission as noted in the MDM Rationale portion of this note. ) and Washer Assembler (spoke with Dr. Ochoa the urologist as noted in the MDM Rationale portion of this note. ) Lab Data [facility] Lab Attestation statement: I reviewed the patient's lab results. My interpretation of these results are in the MDM Rationale portion of this note. 05/09/25 13:29 05/09/25 13:29 Labs: Lab Results 05/09/25 05/09/25 Range/Units 13:29 15:58 WBC 11.9 H (4.8-10.8) X10*3/uL RBC 5.87 H D (4.20-5.50) X10*6/uL Hgb 14.1 (12.0-16.0) g/dl Hct 45.2 (37.0-47.0) % MCV 77.0 L (80.0-98.0) fL MCH 24.0 L (27.0-33.0) pg MCHC 31.2 (31.0-35.0) g/dl RDW 17.3 H (11.0-16.0) % Plt Count 306 (160-400) X10*3/uL MPV 9.4 (9.4-12.3) fL Immature Gran % (Auto) 0.3 (0.0-0.4) % Neut % (Auto) 73.9 H (45-73) % Lymph % (Auto) 19.9 L (20-40) % St[place] % (Auto) 4.3 (2-11) % Eos % (Auto) 1.4 (0-4) % Baso % (Auto) 0.2 (0-2) % Lymph # (Auto) 2.4 (1.2-4.9) X10*3/uL [place] # (Auto) 0.5 (0.1-1.2) X10*3/uL Eos # (Auto) 0.2 (0.0-0.4) X10*3/uL Baso # (Auto) 0.0 (0.0-0.2) X10*3/uL Abs Immat Gran (auto) 0.04 H (0.00-0.03) X10*3/uL Absolute Neuts (auto) 8.8 H (2.0-8.3) x10*3/uL Absolute Nucleated RBC 0.000 (0.0-0.012) X10*3/uL Nucleated RBC % (auto) 0.0 (0.0-0.2) /100WBC Sodium 141 (135-145) mmol/L Potassium 4.4 D (3.3-5.1) mmol/L Chloride 110 H (96-108) mmol/L Carbon Dioxide 25 (22-29) mmol/L Anion Gap 11 L (12-20) BUN 19 H (9-16) mg/dL Creatinine 1.23 (0.5-1.4) mg/dL Estim Creat Clear Calc 74.3 Estimated GFR 46 Random Glucose 120 H (60-115) mg/dL Lactic Acid 0.7 (0.5-2.0) mmol/L Calcium 9.4 (8.4-10.2) mg/dL Total Bilirubin 0.3 (0.0-1.0) mg/dL AST 31 (5-31) U/L ALT 28 (0-31) U/L Alkaline Phosphatase 101 (39-117) U/L Total Protein 7.8 (6.5-8.0) g/dL Albumin 4.3 (3.5-5.0) g/dL Lipase 91 H (8-78) U/L Urine Color Yellow Urine Appearance Clear Urine pH 5.0 (5.0-9.0) Ur Specific [place] 1.020 (1.005-1.025) Urine Protein 30 (1+) H (Neg-Trace) mg/dL Urine Glucose (UA) Negative (Negative) mg/dL Urine Ketones Trace (Negative) mg/dL Urine Blood Moderate (2+) H (Negative) Urine Nitrite Negative (Negative) Ur Leukocyte Esterase Small (1+) H (Negative) Urine RBC >20 H (0-2) /HPF Urine WBC 6-10 H (0-5) /HPF Ur Squamous Epith Cells 6-10 (0-2) /HPF Urine Bacteria Trace (None Seen) Hyaline Casts 3-5 (0-2) /LPF Independent Interpretation I performed an independent interpretation of an: CT Scan Interpretation: My interpretation is in agreement with the radiologist's impression of this imaging study. Report Number: [id number]: Total DLP = 1142.00 mGy-cm CLINICAL HISTORY: abd pain CT abdomen and pelvis with contrast Comparison: None provided Findings: No consolidation or effusion. Hepatomegaly. Asymmetric patchy hypoenhancement throughout the left kidney with perirenal stranding and an ill-defined peripherally enhancing subcapsular collection suspected measuring 1.3 x 2.7 cm on coronal series 5, image 64, concerning for possible abscess with pyelonephritis. Scattered left renal calculi largest of the ureteropelvic junction measuring 1.4 cm. No significant hydronephrosis. Right-sided hypodense renal cysts. No bowel obstruction, pneumoperitoneum, or pneumatosis. Fat containing umbilical hernia. Small right ovarian cyst measuring 2 cm. This may be further evaluated with ultrasound. Normal appendix. Bladder is decompressed with mural thickening, nonspecific. Osteopenia with diffuse multilevel spondylosis. IMPRESSION: 1. Findings concerning for left-sided pyelonephritis with possible small ill-defined subcapsular abscess. 2. Nonobstructive left renal calculi largest measuring 1.4 cm in the ureteropelvic junction. This document has been electronically signed by: Pro Gerber MD on 05/09/2025 18:20:30 Dictated By: Pro Gerber MD Signed By: Electronically signed by Pro Gerber MD 05/09/25 0191 Radiology Impression Discussion of test interpretation with radiology: I have reviewed the radiologist's reading. Critical Care Time Critical Care Time Critical Care Time: Yes Total Critical Care Time: 48 Attestation: I spent 48 minutes of Critical Care Time with this patient. This does not include time spent on separately reported billable procedures. Discharge Plan Discharge Clinical Impression: Pyelonephritis Patient Disposition: Admitted As Inpatient Prescriptions: No Action Mounjaro 7.5 mg/0.5 mL pen injector 7.5 mg subcut WE@0900 budesonide-formoterol [Symbicort] 160-4.5 mcg/actuation HFA aerosol inhaler 2 puff inhalation BID montelukast 10 mg tablet 10 mg PO BEDTIME norethindrone acetate 5 mg tablet 5 mg PO DAILY cefuroxime axetil 500 mg Tablet 500 mg PO BID Qty: 27 0RF magnesium 250 mg tablet 250 mg PO DAILY Qty: 10 0RF cranberry extract 425 mg capsule 425 mg PO BID Qty: 60 5RF Rx Instructions: administer with meals albuterol sulfate [Ventolin HFA] 90 mcg/actuation HFA aerosol inhaler 2 puff inhalation Q6H PRN (Reason: Shortness Of Breath Or Wheezing) meclizine 25 mg tablet 25 mg PO DAILY citalopram 40 mg tablet 40 mg PO DAILY simvastatin 40 mg tablet 40 mg PO BEDTIME lisinopril 20 mg tablet 20 mg PO DAILY Print Language: Qatari
--- NOTE | 2025-05-09 12:54 | ECG_ITS ---
Test Reason : WEAKNESS Blood Pressure : */* mmHG Vent. Rate : 83 BPM Atrial Rate : 83 BPM P-R Int : 172 ms QRS Dur : 96 ms QT Int : 372 ms P-R-T Axes : -3 -52 83 degrees QTcB Int : 437 ms Normal sinus rhythm Low voltage QRS Incomplete right bundle branch block Left anterior fascicular block Cannot rule out Anterior infarct , age undetermined Abnormal ECG When compared with ECG of 26-Dec-2019 08:09, No significant change was found Referred By: Darwin Valente Electronically Signed By: Cristobal Damon
[2025-05-09 13:39] LABS: MANUAL DIFF FLAG NO
[2025-05-09 13:40] LABS: Basophils Percent Auto 0.2 % (0-2); Eosinophils Absolute Auto 0.2 X10*3/uL (0.0-0.4); Eosinophils Percent Auto 1.4 % (0-4); Hematocrit 45.2 % (37.0-47.0); Hemoglobin 14.1 g/dl (12.0-16.0); Imm Gran Abs Auto 0.04 X10*3/uL (0.00-0.03); Imm Gran Pct Auto 0.3 % (0.0-0.4); Lymphocytes Absolute Auto 2.4 X10*3/uL (1.2-4.9); Lymphocytes Percent Auto 19.9 % (20-40); Mean Corpuscular HGB Conc 31.2 g/dl (31.0-35.0); Mean Platelet Volume 9.4 fL (9.4-12.3); Monocytes Absolute Auto 0.5 X10*3/uL (0.1-1.2); Monocytes Percent Auto 4.3 % (2-11); Neutrophils Absolute Auto 8.8 x10*3/uL (2.0-8.3); Neutrophils Percent Auto 73.9 % (45-73); Platelet Count 306 X10*3/uL (160-400); Red Blood Count 5.87 X10*6/uL (4.20-5.50); Red Cell Distribution Width 17.3 % (11.0-16.0); White Blood Count 11.9 X10*3/uL (4.8-10.8)
[2025-05-09 13:50] LABS: Lactic Acid 0.7 mmol/L (0.5-2.0)
[2025-05-09 14:04] LABS: Alanine Aminotransferase 28 U/L (0-31); Albumin Level 4.3 g/dL (3.5-5.0); Alkaline Phosphatase 101 U/L (39-117); Aspartate Amino Transferase 31 U/L (5-31); Bilirubin Total 0.3 mg/dL (0.0-1.0); Blood Urea Nitrogen 19 mg/dL (9-16); Calcium 9.4 mg/dL (8.4-10.2); Carbon Dioxide 25 mmol/L (22-29); Chloride 110 mmol/L (96-108); Creatinine Clr Calc Pharmacy 74.3; Estimated Glomerular Filt Rate 46; Glucose Random 120 mg/dL (60-115); Lipase 91 U/L (8-78); Potassium 4.4 mmol/L (3.3-5.1); Sodium 141 mmol/L (135-145); Total Protein 7.8 g/dL (6.5-8.0)
[2025-05-09 14:15] LABS: Anion Gap 11 (12-20)
[2025-05-09] MEDS: Magnesium Hydrox/Alum Hydrox 30 ML ORAL.SUSP 15 ML PO (14:19)
[2025-05-09] MEDS: ondansetron HCL 4 MG/2 ML VIAL IVPUSH ×2 (14:19→15:44)
[2025-05-09] MEDS: Pantoprazole Sodium 40 MG/10 ML VIAL IVPUSH (14:19)
[2025-05-09 14:20] VITALS: RESP 18
[2025-05-09] MEDS: Morphine Sulfate 4 MG/ML CARTRIDGE IVPUSH (14:20)
[2025-05-09] MEDS: Famotidine/PF 20 MG/2 ML VIAL IVPUSH (14:20)
--- OUTSIDE RECORDS SUMMARY | 2025-05-09 15:39 | XMS_ITS | Encounter Summary ---
Author Organization [facility], Address [address] [place] [address] Phone Care Team Providers Care Blasting Contract Miner Name Role Phone Eva Galarza MD Primary Care Pr ovider Encounter Details Date Type Department Care Team (Late st Contact Info) Description 04/29/2022 Documentation Only [facility], [address] [place] [address] Eva Galarza MD [address] [place] [id number] Social History Tobacco Use Types Packs/Day Years Used Date Smoking Tobacco: Never Assessed Comments Unknown Sex and Gender Information Value Date Recorded Sex Assigned at Not on file Legal Sex Female 3:12 PM EDT Gender Identity Not on file Sexual Orientation Not on file documented as of this encounter Plan of Treatment Not on file documented as of this encounter Visit Diagnoses Not on filedocumented in this encounter Care Teams Blasting Contract Miner Relationship Specialty Start Date End Date Eva Galarza MD PCP - General Internal Medicine 04/29/22 documented as of this encounter
[2025-05-09] MEDS: cefTRIAXone sodium 1 GM VIAL IVPUSH (15:44)
[2025-05-09 16:00] VITALS: BP 124/69; PULSE 89; RESP 20; O2SAT 94
[2025-05-09 16:03] LABS: Appearance Urine Clear; Color Urine Yellow; Glucose Urine UA Negative (Negative); Leukocyte Esterase Urine Small (1+) (Negative); Nitrite Urine Negative (Negative); UMIC TRIGGER UACC YES; Urine Blood Moderate (2+) (Negative); Urine Ketones Trace mg/dL (Negative); Urine Protein 30 (1+) mg/dL (Neg-Trace)
[2025-05-09 16:05] LABS: Bacteria Urine Trace (None Seen); RBC Urine >20 /HPF (0-2); UACC Culture Trigger YES
[2025-05-09] MEDS: iohexoL 350 MG/ML 100 ML INFUS..BTL IV (17:29)
[2025-05-09 18:39] VITALS: BP 128/65; PULSE 91; RESP 17; TEMP 36.6; O2SAT 95
--- NOTE | 2025-05-09 20:13 | P.HPHOSP_ITS ---
History of Present Illness Date of Service: 05/09/25 Attending physician on admission: Ger Juan Chief Complaint: abd pain, diarrhea, decreased appetite Patient is a 54-year-old female with a past medical history significant for kidney stones (staghorn stone requiring stent placement), left subcapsular hematoma, left perinephric abscess with CHARLENE drain 07/16, type 2 diabetes, hypertension, moderate persistent asthma, hyperlipidemia, morbid obesity, stage 3A CKD, TRUPTI (no CPAP) and BPPV, who presented to the ED due to lower abdominal pain and diarrhea for the past week. She reports 1 episode of vomiting while in the ED. She has had episodes of belching and decreased appetite. The patient reports that she felt very similar in the past when she had the infected kidney stone and perinephric abscess. Her urine has had a fishy odor, no vaginal discharge. She denies any dysuria, frequency or urgency different from her normal urinary baseline. Her lower abdominal pain is mostly in the left lower quadrant and she rates it about a 3/10. Review of Systems 2 Constitutional: Constitutional: Denies body ache(s), Denies chills, Denies fatigue, Denies fever(s) and Denies headache(s) Eyes: Eyes: Denies change in vision and Denies photophobia ENT: Denies headache(s) Cardiovascular: Cardiovascular: Denies chest pain, Denies syncope, Denies rapid heart rate, Denies leg edema, Denies lightheadedness and Denies dyspnea Respiratory: Respiratory: Denies chest congestion, Denies cough, Denies dyspnea and Denies wheezing Gastrointestinal: Gastrointestinal: Reports abdominal pain, Denies constipation, Reports diarrhea, Reports nausea and Reports vomiting Genitourinary: Genitourinary: Denies difficulty voiding, Denies dysuria and Denies urinary urgency Musculoskeletal: Musculoskeletal: Denies back pain Integumentary/Breasts: Skin/Breast: Denies rash Neurologic: Denies confusion, Denies syncope and Denies headache(s) Psychiatric: Psychiatric: Denies confusion Endocrine: Endocrine: Denies fatigue Hematologic/Lymphatic: Hematologic/Lymphatic: Denies easy bleeding and Denies easy bruising Allergic/Immunologic: Allergic/Immunologic: Denies wheezing [facility] Medical History Hematoma of kidney Perinephric hematoma Asthma Benign paroxysmal positional vertigo Obesity Cataract CKD (chronic kidney disease) Depression HLD (hyperlipidemia) Diabetes HTN (hypertension) Sleep apnea History of kidney stones History of in vitro fertilization Functional capacity: independent ambulation Family History Father Cancer Mother Epilepsia Dementia Brother Drug abuse Bipolar 1 disorder Son No problems noted. Surgical History H/O breast biopsy History of ureteroscopy Hx of ectopic History of open heart surgery Social History Household Members: Spouse and Children Housing: House Do you presently have visiting nurse or other home services: No Alcohol intake: never Comment: pt refused red socks Patient Tobacco Use Status: Never used Tobacco Smoked in Last 30 Days: No Use of substances other than those prescribed or required for medical reasons: No Advance Directives: Yes Advance Directives on File: Yes Advance Directives Date on File: 04/12/24 Do you have a plan to hurt others: No Plan Nutrition Risks: No Nutritional Risk Patient : No service: No Narrative: Employee [facility], no smoking or alcohol Meds Allergies Allergy/AdvReac Type Severity Reaction Status Date / Time sulfamethoxazole Allergy Mild Hives Verified 05/09/25 12:54 [From Bactrim] trimethoprim [From Bactrim] Allergy Unknown Anaphylaxis Verified 05/09/25 12:54 oxycodone AdvReac Intermediate Flushing Verified 05/09/25 12:54 FISH Allergy Unknown Anaphylaxis Uncoded 08/04/24 15:15 Home Medications ?Medication ?Instructions ?Recorded ?Confirmed ?Last Taken ?Type albuterol sulfate 90 mcg/actuation 2 puff inhalation Q6H PRN 09/17/23 05/09/25 05/07/25 History aerosol inhaler (Ventolin HFA) Shortness Of Breath Or Wheezing citalopram 40 mg tablet 40 mg PO DAILY 09/17/23 05/09/25 05/07/25 History lisinopril 20 mg tablet 20 mg PO DAILY 09/17/23 05/09/25 05/07/25 History meclizine 25 mg tablet 25 mg PO DAILY Vertigo 1005/09/25 05/07/25 History simvastatin 40 mg tablet 40 mg PO BEDTIME 09/17/23 05/09/25 05/07/25 History budesonide-formoterol HFA 160 2 puff inhalation BID 05/24/24 05/09/25 05/07/25 History mcg-4.5 mcg/actuation aerosol inhaler (Symbicort) montelukast 10 mg tablet 10 mg PO BEDTIME 05/24/24 05/09/25 05/07/25 History norethindrone acetate 5 mg tablet 5 mg PO Q48H 05/24/24 05/09/25 Unknown History glipizide 10 mg tablet, extended 10 mg PO DAILY 05/09/25 05/09/25 05/07/25 History release 24 hr metformin 1,000 mg tablet 1,000 mg PO BID 05/09/25 05/09/25 05/07/25 History tirzepatide 10 mg/0.5 mL 10 mg subcut RAMON 05/09/25 05/09/25 05/07/25 History subcutaneous pen injector (Иванunbhaskar) Physical Exam 2 Vital Signs and Narrative: Vital Signs: Last Vital Signs Temp 97.9 F 05/09/25 18:39 Pulse 91 05/09/25 18:39 Resp 17 05/09/25 18:39 BP 128/65 05/09/25 18:39 Pulse Ox 95 05/09/25 18:39 O2 Del Method Room Air 05/09/25 18:39 BMI result Body Mass Index 48.4 General: AOx3, no acute distress Resp: CTA bilaterally CVS: S1, S2, RRR GI: +BS, tender LLQ, no distention Skin: Warm, dry Neuro: Cranial nerves II-XII grossly intact bilaterally. Motor grossly intact bilaterally Extremities: No LE edema Psych: Appropriate affect Const: General: No confusion Orientation/consciousness: No confusion Eyes: Direct Ophthalmoscopy: No photophobia Neuro: General: No confusion Results Labs 05/09/25 13:29 05/09/25 13:29 Labs: Laboratory Results - last 24 hr 05/09/25 05/09/25 13:29 15:58 MCV 77.0 L MCH 24.0 L MCHC 31.2 RDW 17.3 H Plt Count 306 MPV 9.4 Immature Gran % (Auto) 0.3 Neut % (Auto) 73.9 H Lymph % (Auto) 19.9 L [place] % (Auto) 4.3 Eos % (Auto) 1.4 Baso % (Auto) 0.2 Lymph # (Auto) 2.4 [place] # (Auto) 0.5 Eos # (Auto) 0.2 Baso # (Auto) 0.0 Abs Immat Gran (auto) 0.04 H Absolute Neuts (auto) 8.8 H Absolute Nucleated RBC 0.000 Nucleated RBC % (auto) 0.0 Anion Gap 11 L Estim Creat Clear Calc 74.3 Estimated GFR 46 Random Glucose 120 H Lactic Acid 0.7 Calcium 9.4 Total Bilirubin 0.3 AST 31 ALT 28 Alkaline Phosphatase 101 Total Protein 7.8 Albumin 4.3 Lipase 91 H Urine Color Yellow Urine Appearance Clear Urine pH 5.0 Ur Specific [place] 1.020 Urine Protein 30 (1+) H Urine Glucose (UA) Negative Urine Ketones Trace Urine Blood Moderate (2+) H Urine Nitrite Negative Ur Leukocyte Esterase Small (1+) H Urine RBC >20 H Urine WBC 6-10 H Ur Squamous Epith Cells 6-10 Urine Bacteria Trace Hyaline Casts 3-5 Assessment and Plan (1) Pyelonephritis: Status: Acute (2) Perinephric abscess: Status: Acute (3) Kidney stone on left side: Status: Acute (4) Elevated lipase: Status: Acute (5) Morbid obesity: Status: Acute Plan Patient is a 54-year-old female with a past medical history significant for kidney stones (staghorn stone requiring stent placement), left subcapsular hematoma, left perinephric abscess with CHARLENE drain 07/16, type 2 diabetes, hypertension, moderate persistent asthma, hyperlipidemia, morbid obesity, stage 3A CKD, TRUPTI (no CPAP) and BPPV, who presented to the ED due to lower abdominal pain and diarrhea for the past week. Pyelonephritis with perinephric abscess and left-sided kidney stone - WBC 11.9, tachycardic, lactic acid normal, blood cultures x2 pending, no sepsis - UA positive - abdominopelvic CT with findings concerning for left-sided pyelonephritis with possible small ill-defined subcapsular abscess. Nonobstructive left renal calculi largest measuring 1.4 cm in the UPJ - ED provider spoke with Urology suggested admission and possible IR consult tomorrow - started on ceftriaxone in ED, continue - LR 75 mL/HR - NPO after midnight - urology consult - consider IR consult pending urology recommendation - monitor CBC and BMP Elevated lipase - lipase 91 - no evidence of pancreatitis on CT - likely secondary to Mounjaro Type 2 diabetes - hold Mounjaro, metformin and glipizide - sliding scale insulin - diabetic diet when appropriate Hypertension - continue lisinopril Moderate persistent asthma, no acute exacerbation - continue home inhalers and montelukast Hyperlipidemia - continue statin CKD 3A - creatinine at baseline - IV fluids as above BPPV - continue meclizine Morbid obesity - BMI 48.4 - weight loss encouraged - patient on Mounjaro Full code VTE prophylaxis: Pneumoboots pending urology and possible IR consultation Patient with acute pyelonephritis with left perinephric abscess requiring admission for at least 2 midnight stay for IV antibiotics, fluids and monitoring. Quality Stroke Does the patient have a stroke diagnosis?: No VTE Prior VTE?: No VTE Risk Level:: Medical - moderate - high VTE Device Contraindication: N/A - Device Ordered VTE Drug Contraindication: Treatment Not Indicated
--- NOTE | 2025-05-09 20:19 | PHA.MEDREC ---
Addendum entered by Kiet Diamond [facility] 05/09/25 20:25: Med rec reviewed, no current claims/fill history for symbicort and norethindrone Original Note: Pharmacy Consult ? Medication Reconciliation Pharmacy has completed the medication reconciliation. Spoke to patient to confirm med list. patient had a list of medications on her phone. Patient states she is still taking Norethindrone 5 mg , however there is no claim history. Patient confirmed Mounjaro 10 mg every Thursday, last dose 05/07/25.
[2025-05-09 21:13] LABS: Glucose, Whole Blood 125 mg/dL (60-115)
--- NOTE | 2025-05-09 21:26 | PC.NURSE ---
Report given to DANNY Bhandari.
[2025-05-09] MEDS: Lactated Ringers 1,000 ML 75 ML IVCONT (21:38)
[2025-05-09] MEDS: Montelukast Sodium 10 MG TABLET PO (21:38)
[2025-05-09 23:42] VITALS: BP 140/77; PULSE 94; RESP 17; TEMP 36.4; O2SAT 95
[2025-05-09 23:45] VITALS: BMI 50.5
[2025-05-10] VITALS (8 sets, daily range): BP systolic 102–136; BP diastolic 56–84; PULSE 71–98; RESP 16–18; TEMP 36.4–37.1; O2SAT 90–98
[2025-05-10 06:24] LABS: MANUAL DIFF FLAG NO
[2025-05-10 06:36] LABS: Basophils Percent Auto 0.1 % (0-2); Eosinophils Absolute Auto 0.2 X10*3/uL (0.0-0.4); Eosinophils Percent Auto 1.4 % (0-4); Hematocrit 45.7 % (37.0-47.0); Hemoglobin 13.5 g/dl (12.0-16.0); Imm Gran Abs Auto 0.06 X10*3/uL (0.00-0.03); Imm Gran Pct Auto 0.5 % (0.0-0.4); Lymphocytes Absolute Auto 1.9 X10*3/uL (1.2-4.9); Lymphocytes Percent Auto 17.6 % (20-40); Mean Corpuscular HGB Conc 29.5 g/dl (31.0-35.0); Mean Corpuscular Hemoglobin 23.5 pg (27.0-33.0); Mean Corpuscular Volume 79.6 fL (80.0-98.0); Mean Platelet Volume 9.6 fL (9.4-12.3); Monocytes Absolute Auto 0.4 X10*3/uL (0.1-1.2); Monocytes Percent Auto 3.3 % (2-11); Neutrophils Absolute Auto 8.4 x10*3/uL (2.0-8.3); Neutrophils Percent Auto 77.1 % (45-73); Platelet Count 275 X10*3/uL (160-400); Red Blood Count 5.74 X10*6/uL (4.20-5.50); Red Cell Distribution Width 17.4 % (11.0-16.0); White Blood Count 10.9 X10*3/uL (4.8-10.8)
[2025-05-10 06:45] LABS: Anion Gap 11 (12-20); Blood Urea Nitrogen 16 mg/dL (9-16); Calcium 8.8 mg/dL (8.4-10.2); Carbon Dioxide 25 mmol/L (22-29); Chloride 108 mmol/L (96-108); Creatinine Clr Calc Pharmacy 77.4; Estimated Glomerular Filt Rate 46; Glucose Random 112 mg/dL (60-115); Potassium 4.3 mmol/L (3.3-5.1); Sodium 140 mmol/L (135-145)
[2025-05-10 07:17] LABS: Glucose, Whole Blood 127 mg/dL (60-115)
[2025-05-10] MEDS: Fluticasone/Vilanterol 200/25 BLST.W.DEV 1 PUFF INHALE (07:52)
--- NOTE | 2025-05-10 08:30 | MHC.CM.PN ---
CM met with Patient at bedside. Patient lives in a house with her /HCP/Zachery and her 21 year old Son and her will transport to home at time of dc. Patient required no DME nor services [employer] SERVICES [employer] and home self care is her goal. CM has initiated and will follow for dc planning. PCP is Dr. Eva Galarza.
--- NOTE | 2025-05-10 09:55 | P.CNUR_ITS ---
History of Present Illness Consult details Consult date: 05/10/25 Narrative: CC: Left pyelonephritis 54-year-old female Well known to Urology Recurrent stone former Background type 2 diabetes Presented through emergency department with lower abdominal pain, diarrhea and intermittent fevers States felt similar last time she had an infected kidney stone on the left side Investigations - elevated white cell count, tachycardic, UA positive trace bacteria negative nitrites Has been admitted for microbiology investigation and IV antibiotics Imaging - Asymmetric patchy hypoenhancement throughout the left kidney with perirenal stranding and an ill-defined peripherally enhancing subcapsular collection suspected measuring 1.3 x 2.7 cm on coronal series 5, image 64, concerning for possible abscess with pyelonephritis. Scattered left renal calculi largest of the ureteropelvic junction measuring 1.4 cm. No significant hydronephrosis Imaging reviewed Subcapsular collection is small Treat conservatively Review of Systems 2 Constitutional: Constitutional: Reports as per HPI and Reports no additional constitutional complaints Cardiovascular: Cardiovascular: Reports as per HPI and Reports no additional cardiovascular complaints Respiratory: Respiratory: Reports as per HPI and Reports no additional respiratory complaints Gastrointestinal: Gastrointestinal: Reports as per HPI and Reports no additional gastrointestinal complaints Genitourinary: Genitourinary: Reports as per HPI Musculoskeletal: Musculoskeletal: Reports no additional musculoskeletal complaints and Reports as per HPI Neurologic: Reports system reviewed and no additional complaints, except as documented and Reports as per HPI PMFSH Past Medical History Medical History Hematoma of kidney Perinephric hematoma Asthma Benign paroxysmal positional vertigo Obesity Cataract CKD (chronic kidney disease) Depression HLD (hyperlipidemia) Diabetes HTN (hypertension) Sleep apnea History of kidney stones History of in vitro fertilization Family History Family History Father Cancer Mother Epilepsia Dementia Brother Drug abuse Bipolar 1 disorder Son No problems noted. Surgical History Surgical History H/O breast biopsy History of ureteroscopy Hx of ectopic History of open heart surgery Social History Social History Household Members: Spouse and Children Housing: House Do you presently have visiting nurse or other home services: No Alcohol intake: never Comment: pt refused red socks Patient Tobacco Use Status: Never used Tobacco Smoked in Last 30 Days: No Use of substances other than those prescribed or required for medical reasons: No Advance Directives: Yes Advance Directives on File: Yes Advance Directives Date on File: 04/12/24 Do you have a plan to hurt others: No Plan Recently lost weight without trying: No Nutrition Risks: No Nutritional Risk Patient : No service: No Meds Allergies Allergy/AdvReac Type Severity Reaction Status Date / Time sulfamethoxazole (From Allergy Mild Hives Verified 05/09/25 12:54 Bactrim) trimethoprim (From Bactrim) Allergy Unknown Anaphylaxis Verified 05/09/25 12:54 oxycodone AdvReac Intermediate Flushing Verified 05/09/25 12:54 FISH Allergy Unknown Anaphylaxis Uncoded 08/04/24 15:15 Active Medications: Current Medications Acetaminophen (Acetaminophen 325 Mg Tablet) 975 mg PO Q6H PRN PRN Reason: Pain, Mild 1-3,fever,headache Albuterol Sulfate (Albuterol Sulfate 90 Mcg 8 Gm Inhaler) 2 puff INHALE Q6H PRN PRN Reason: Shortness Of Breath Or Wheezing Calcium Carbonate (Calcium Carbonate 750 Mg Tab.Chew) 750 mg PO Q4H PRN PRN Reason: Heartburn Ceftriaxone Sodium (Ceftriaxone Sodium 1 Gm Vial) 1 gm IVPUSH Q24H [facility] Dextrose (Dextrose 50 % 25 Gm/50 Ml Syringe) 25 gm IVPUSH Q15M PRN; Protocol PRN Reason: per Hypoglycemia Standing Ord. Escitalopram Oxalate (Escitalopram Oxalate 20 Mg Tablet) 20 mg PO DAILY [facility] Fluticasone/Vilanterol (Fluticasone/Vilanterol 200/25 Blst.W.Dev) 1 puff INHALE RDAILY [facility] Last Admin: 05/10/25 07:52 Dose: 1 puff Glucose (Glucose Gel 15 Gm Gel..Gram.) 15 gm PO Q15M PRN; Protocol PRN Reason: per Hypoglycemia Standing Ord. Lactated Ringer's (Lr) 1,000 mls @ 75 mls/hr IVCONT .[id number] [facility] Last Admin: 05/09/25 21:38 Dose: 75 mls/hr Insulin Human Lispro (Insulin Lispro 100 Unit/Ml 3 Ml Vial) 0 unit SUBCUT QIDACHS [facility]; Protocol Last Admin: 05/10/25 08:12 Dose: Not Given Lisinopril (Lisinopril 20 Mg Tablet) 20 mg PO DAILY [facility]; Protocol Magnesium Hydroxide (Milk Of Magnesia 30 Ml Oral.Susp) 30 ml PO DAILY PRN PRN Reason: Constipation Magnesium Oxide (Magnesium Oxide 400 Mg Tablet) 200 mg PO DAILY [facility] Meclizine HCl (Meclizine Hcl 25 Mg Tablet) 25 mg PO DAILY [facility] Melatonin (Melatonin 3 Mg Tablet) 6 mg PO BEDTIME PRN PRN Reason: Insomnia Montelukast Sodium (Montelukast Sodium 10 Mg Tablet) 10 mg PO BEDTIME [facility] Last Admin: 05/09/25 21:38 Dose: 10 mg Morphine Sulfate (Morphine Sulfate 4 Mg/Ml Cartridge) 2 mg IVPUSH Q4H PRN; Protocol PRN Reason: Pain, Severe (Pain Scale 7-10) Non-Formulary Medication (Norethindrone Acetate) 5 mg PO Q48H [facility] Ondansetron HCl (Ondansetron Hcl 4 Mg/2 Ml Vial) 4 mg IVPUSH Q8H PRN PRN Reason: Nausea and Vomiting Oxycodone HCl (Oxycodone Hcl Immed Release 5 Mg Tablet) 5 mg PO Q6H PRN PRN Reason: Pain, Moderate(Pain Scale 4-6) Sodium Chloride (0.9 % Sodium Chloride Flush 3 Ml Syringe) 3 ml IVFLUSH QSHIFT [facility] Last Admin: 05/10/25 02:13 Dose: Not Given Home Medications ?Medication ?Instructions ?Recorded ?Confirmed ?Last Taken ?Type albuterol sulfate 90 mcg/actuation 2 puff inhalation Q 6H PRN 09/17/23 05/09/25 05/07/25 History aerosol inhaler (Ventolin HFA) Shortness Of Breath Or Wheezing citalopram 40 mg tablet 40 mg PO DAILY 09/17/2304/2305/07/25 History lisinopril 20 mg tablet 20 mg PO DAILY 09/17/2304/2305/07/25 History meclizine 25 mg tablet 25 mg PO DAILY Vertigo 09/1705/09/25 05/07/25 History simvastatin 40 mg tablet 40 mg PO BEDTIME 09/17/2305/07/25 History budesonide-formoterol HFA 160 2 puff inhalation BID 05/09/25 05/07/25 History mcg-4.5 mcg/actuation aerosol inhaler (Symbicort) montelukast 10 mg tablet 10 mg PO BEDTIME 05/24/2405/07/25 History norethindrone acetate 5 mg tablet 5 mg PO Q48H 4 05/09/25 Unknown History glipizide 10 mg tablet, extended 10 mg PO DAILY 05/09/25 05/07/25 History release 24 hr metformin 1,000 mg tablet 1,000 mg PO BID 05/09/2505/07/25 History tirzepatide 10 mg/0.5 mL 10 mg subcut RAMON 05/09/2505/07/25 History subcutaneous pen injector ([place]) Physical Exam 2 Vital Signs: Vital Signs: Last Vital Signs Temp 97.5 F 05/10/25 07:05 Pulse 93 05/10/25 07:55 Resp 16 05/10/25 07:55 BP 130/69 05/10/25 07:05 Pulse Ox 91 L 05/10/25 07:05 O2 Del Method Room Air 05/10/25 07:05 BMI result Body Mass Index 50.5 Const: General: cooperative, healthy appearing, comfortable and no acute distress Orientation/consciousness: patient oriented x3 HEENT: Face and sinus: Yes normal facial exam Mouth: moist mucous membranes Neck: Neck: Yes normal visual inspection, Yes full ROM and Yes trachea midline Chest: Chest palpation & inspection: normal inspection of the chest Resp: Effort & Inspection: normal respiratory effort, able to speak in complete sentences and no respiratory distress GI: Inspection: Yes normal to inspection Back/Spine/Pelvis: Cervical Spine: normal cervical lordosis Thoracic/Lumbar Spine: thoracic and lumbar spine normal to inspection Skin: General skin exam: no rashes or lesions noted Neuro: General: patient oriented x3, tone normal and moves all extremities Extrem: General: Yes normal to inspection and Yes capillary refill normal Results Labs 05/10/25 06:09 05/10/25 06:09 Labs: Abnormal lab results 05/09/25 05/09/25 05/09/25 Range/Units 13:29 15:58 21:10 WBC 11.9 H (4.8-10.8) X10*3/uL RBC 5.87 H D (4.20-5.50) X10*6/uL MCV 77.0 L (80.0-98.0) fL MCH 24.0 L (27.0-33.0) pg MCHC (31.0-35.0) g/dl RDW 17.3 H (11.0-16.0) % Immature Gran % (Auto) (0.0-0.4) % Neut % (Auto) 73.9 H (45-73) % Lymph % (Auto) 19.9 L (20-40) % Abs Immat Gran (auto) 0.04 H (0.00-0.03) X10*3/uL Absolute Neuts (auto) 8.8 H (2.0-8.3) x10*3/uL Chloride 110 H (96-108) mmol/L Anion Gap 11 L (12-20) BUN 19 H (9-16) mg/dL POC Glucose 125 H (60-115) mg/dL Random Glucose 120 H (60-115) mg/dL Lipase 91 H (8-78) U/L Urine Protein 30 (1+) H (Neg-Trace) mg/dL Urine Blood Moderate (2+) H (Negative) Ur Leukocyte Esterase Small (1+) H (Negative) Urine RBC >20 H (0-2) /HPF Urine WBC 6-10 H (0-5) /HPF 05/10/25 05/10/25 Range/Units 06:09 07:10 WBC 10.9 H (4.8-10.8) X10*3/uL RBC 5.74 H (4.20-5.50) X10*6/uL MCV 79.6 L (80.0-98.0) fL MCH 23.5 L (27.0-33.0) pg MCHC 29.5 L (31.0-35.0) g/dl RDW 17.4 H (11.0-16.0) % Immature Gran % (Auto) 0.5 H (0.0-0.4) % Neut % (Auto) 77.1 H (45-73) % Lymph % (Auto) 17.6 L (20-40) % Abs Immat Gran (auto) 0.06 H (0.00-0.03) X10*3/uL Absolute Neuts (auto) 8.4 H (2.0-8.3) x10*3/uL Chloride (96-108) mmol/L Anion Gap 11 L (12-20) BUN (9-16) mg/dL POC Glucose 127 H (60-115) mg/dL Random Glucose (60-115) mg/dL Lipase (8-78) U/L Urine Protein (Neg-Trace) mg/dL Urine Blood (Negative) Ur Leukocyte Esterase (Negative) Urine RBC (0-2) /HPF Urine WBC (0-5) /HPF Short CBC 05/09/25 05/10/25 Range/Units 13:29 06:09 WBC 11.9 H 10.9 H (4.8-10.8) X10*3/uL Hgb 14.1 13.5 (12.0-16.0) g/dl Hct 45.2 45.7 (37.0-47.0) % Plt Count 306 275 (160-400) X10*3/uL BMP 05/09/25 05/10/25 13:29 06:09 Sodium 141 140 Potassium 4.4 D 4.3 Chloride 110 H 108 Carbon Dioxide 25 25 BUN 19 H 16 Creatinine 1.23 1.21 Calcium 9.4 8.8 D Liver Function 05/09/25 Range/Units 13:29 Total Bilirubin 0.3 (0.0-1.0) mg/dL AST 31 (5-31) U/L ALT 28 (0-31) U/L Alkaline Phosphatase 101 (39-117) U/L Albumin 4.3 (3.5-5.0) g/dL Urine 05/09/25 Range/Units 15:58 Urine Color Yellow Urine Appearance Clear Urine pH 5.0 (5.0-9.0) Ur Specific [place] 1.020 (1.005-1.025) Urine Protein 30 (1+) H (Neg-Trace) mg/dL Urine Glucose (UA) Negative (Negative) mg/dL All other labs normal. Assessment and Plan (1) Kidney stone on left side: Status: Acute Plan Manage with IV antibiotics Procedures Date of Service Date of Service: 05/10/25
[2025-05-10] MEDS: Acetaminophen 325 MG TABLET 975 MG PO (09:57)
[2025-05-10] MEDS: Magnesium Oxide 400 MG TABLET 200 MG PO (09:57)
[2025-05-10] MEDS: lisinopriL 20 MG TABLET PO (09:59)
[2025-05-10] MEDS: Escitalopram Oxalate 20 MG TABLET PO (10:00)
[2025-05-10] MEDS: Meclizine HCl 25 MG TABLET PO (10:00)
[2025-05-10] MEDS: 0.9 % Sodium Chloride Flush 3 ML SYRINGE IVFLUSH ×3 (11:18→19:19)
[2025-05-10 11:35] LABS: Glucose, Whole Blood 178 mg/dL (60-115)
[2025-05-10] MEDS: Insulin Lispro 100 UNIT/ML 3 ML VIAL SUBCUT ×2 (12:02→20:50)
--- NOTE | 2025-05-10 13:35 | P.PNIM_ITS ---
Subjective Subjective Date of Service: 05/10/25 Interval History: seen and evaluated feels better but reporting pain in back Lt side no fever or chills no other events Review of Systems Review of Systems: Yes all other systems are reviewed and are negative Physical Exam 2 Vital Signs: Vital Signs: Last Vital Signs Temp 97.8 F 05/10/25 11:22 Pulse 84 05/10/25 11:22 Resp 17 05/10/25 11:22 BP 129/77 05/10/25 11:22 Pulse Ox 93 05/10/25 11:22 O2 Del Method Room Air 05/10/25 11:22 BMI result Body Mass Index 50.5 Const: Other: Constitutional : Awake, interactive, not in distress Neck : Normal inspection, Supple Cardiovascular : RRR, no JVP, no lower extremity edema Respiratory : good bilateral air entry, no crackles, wheezes or rhonchi Gastrointestinal: soft, lax, Normal bowel sounds, mild left sided abd tenderness, Lt CVA Skin : Warm, Dry Neurological : Alert & oriented x3, No focal deficit Objective Data Active Medications Acetaminophen (Acetaminophen 325 Mg Tablet) 975 mg PO Q6H PRN PRN Reason: Pain, Mild 1-3,fever,headache Last Admin: 05/10/25 09:57 Dose: 975 mg Documented By: MARIBELL Albuterol Sulfate (Albuterol Sulfate 90 Mcg 8 Gm Inhaler) 2 puff INHALE Q6H PRN PRN Reason: Shortness Of Breath Or Wheezing Calcium Carbonate (Calcium Carbonate 750 Mg Tab.Chew) 750 mg PO Q4H PRN PRN Reason: Heartburn Ceftriaxone Sodium (Ceftriaxone Sodium 1 Gm Vial) 1 gm IVPUSH Q24H [facility] Dextrose (Dextrose 50 % 25 Gm/50 Ml Syringe) 25 gm IVPUSH Q15M PRN; Protocol PRN Reason: per Hypoglycemia Standing Ord. Escitalopram Oxalate (Escitalopram Oxalate 20 Mg Tablet) 20 mg PO DAILY [facility] Last Admin: 05/10/25 10:00 Dose: 20 mg Documented By: MARIBELL Fluticasone/Vilanterol (Fluticasone/Vilanterol 200/25 Blst.W.Dev) 1 puff INHALE RDAILY [facility] Last Admin: 05/10/25 07:52 Dose: 1 puff Documented By: SCOVILH Glucose (Glucose Gel 15 Gm Gel..Gram.) 15 gm PO Q15M PRN; Protocol PRN Reason: per Hypoglycemia Standing Ord. Lactated Ringer's (Lr) 1,000 mls @ 75 mls/hr IVCONT .[id number] [facility] Last Admin: 05/10/25 12:06 Dose: Not Given Documented By: MARIBELL Non-Admin Reason: Physician Held Med Insulin Human Lispro (Insulin Lispro 100 Unit/Ml 3 Ml Vial) 0 unit SUBCUT QIDACHS [facility]; Protocol Last Admin: 05/10/25 12:02 Dose: 2 unit Documented By: MARIBELL Lisinopril (Lisinopril 20 Mg Tablet) 20 mg PO DAILY [facility]; Protocol Last Admin: 05/10/25 09:59 Dose: 20 mg Documented By: MARIBELL Magnesium Hydroxide (Milk Of Magnesia 30 Ml Oral.Susp) 30 ml PO DAILY PRN PRN Reason: Constipation Magnesium Oxide (Magnesium Oxide 400 Mg Tablet) 200 mg PO DAILY [facility] Last Admin: 05/10/25 09:57 Dose: 200 mg Documented By: MARIBELL Meclizine HCl (Meclizine Hcl 25 Mg Tablet) 25 mg PO DAILY [facility] Last Admin: 05/10/25 10:00 Dose: 25 mg Documented By: MARIBELL Melatonin (Melatonin 3 Mg Tablet) 6 mg PO BEDTIME PRN PRN Reason: Insomnia Montelukast Sodium (Montelukast Sodium 10 Mg Tablet) 10 mg PO BEDTIME [facility] Last Admin: 05/09/25 21:38 Dose: 10 mg Documented By: JACKIE Morphine Sulfate (Morphine Sulfate 4 Mg/Ml Cartridge) 2 mg IVPUSH Q4H PRN; Protocol PRN Reason: Pain, Severe (Pain Scale 7-10) Ondansetron HCl (Ondansetron Hcl 4 Mg/2 Ml Vial) 4 mg IVPUSH Q8H PRN PRN Reason: Nausea and Vomiting Oxycodone HCl (Oxycodone Hcl Immed Release 5 Mg Tablet) 5 mg PO Q6H PRN PRN Reason: Pain, Moderate(Pain Scale 4-6) Sodium Chloride (0.9 % Sodium Chloride Flush 3 Ml Syringe) 3 ml IVFLUSH QSHIFT [facility] Last Admin: 05/10/25 11:18 Dose: 3 ml Documented By: MARIBELL Labs 05/10/25 06:09 05/10/25 06:09 Labs: Laboratory Results - last 24 hr 05/09/25 05/09/25 05/09/25 13:29 15:58 21:10 MCV 77.0 L MCH 24.0 L MCHC 31.2 RDW 17.3 H Plt Count 306 MPV 9.4 Immature Gran % (Auto) 0.3 Neut % (Auto) 73.9 H Lymph % (Auto) 19.9 L [place] % (Auto) 4.3 Eos % (Auto) 1.4 Baso % (Auto) 0.2 Lymph # (Auto) 2.4 [place] # (Auto) 0.5 Eos # (Auto) 0.2 Baso # (Auto) 0.0 Abs Immat Gran (auto) 0.04 H Absolute Neuts (auto) 8.8 H Absolute Nucleated RBC 0.000 Nucleated RBC % (auto) 0.0 Anion Gap 11 L Estim Creat Clear Calc 74.3 Estimated GFR 46 POC Glucose 125 H Random Glucose 120 H Lactic Acid 0.7 Calcium 9.4 Total Bilirubin 0.3 AST 31 ALT 28 Alkaline Phosphatase 101 Total Protein 7.8 Albumin 4.3 Lipase 91 H Urine Color Yellow Urine Appearance Clear Urine pH 5.0 Ur Specific [place] 1.020 Urine Protein 30 (1+) H Urine Glucose (UA) Negative Urine Ketones Trace Urine Blood Moderate (2+) H Urine Nitrite Negative Ur Leukocyte Esterase Small (1+) H Urine RBC >20 H Urine WBC 6-10 H Ur Squamous Epith Cells 6-10 Urine Bacteria Trace Hyaline Casts 3-5 05/10/25 05/10/25 05/10/25 06:09 07:10 11:32 MCV 79.6 L MCH 23.5 L MCHC 29.5 L RDW 17.4 H Plt Count 275 MPV 9.6 Immature Gran % (Auto) 0.5 H Neut % (Auto) 77.1 H Lymph % (Auto) 17.6 L [place] % (Auto) 3.3 Eos % (Auto) 1.4 Baso % (Auto) 0.1 Lymph # (Auto) 1.9 [place] # (Auto) 0.4 Eos # (Auto) 0.2 Baso # (Auto) 0.0 Abs Immat Gran (auto) 0.06 H Absolute Neuts (auto) 8.4 H Absolute Nucleated RBC 0.000 Nucleated RBC % (auto) 0.0 Anion Gap 11 L Estim Creat Clear Calc 77.4 Estimated GFR 46 POC Glucose 127 H 178 H Random Glucose 112 Lactic Acid Calcium 8.8 D Total Bilirubin AST ALT Alkaline Phosphatase Total Protein Albumin Lipase Urine Color Urine Appearance Urine pH Ur Specific [place] Urine Protein Urine Glucose (UA) Urine Ketones Urine Blood Urine Nitrite Ur Leukocyte Esterase Urine RBC Urine WBC Ur Squamous Epith Cells Urine Bacteria Hyaline Casts Microbiology Microbiology Results: Microbiology 05/09/25 Unknown Urine Culture - Preliminary Urine clean catch - Clean Catch Midstream No growth to date. Assessment and Plan (1) Morbid obesity: Status: Acute (2) Elevated lipase: Status: Acute (3) Perinephric fluid collection: Status: Acute (4) Perinephric abscess: Status: Acute (5) Pyelonephritis: Status: Acute Plan Patient is a 54-year-old female with a past medical history significant for kidney stones (staghorn stone requiring stent placement), left subcapsular hematoma, left perinephric abscess with CHARLENE drain 07/16, type 2 diabetes, hypertension, moderate persistent asthma, hyperlipidemia, morbid obesity, stage 3A CKD, TRUPTI (no CPAP) and BPPV, who presented to the ED due to lower abdominal pain and diarrhea for the past week. Pyelonephritis with perinephric abscess and left-sided kidney stone blood cultures pending abdominopelvic CT with findings concerning for left-sided pyelonephritis with possible small ill-defined subcapsular abscess. Nonobstructive left renal calculi largest measuring 1.4 cm in the UPJ Urology suggested IV Abx only for now Continue Ceftriaxone LR 75 mL/HR start diet Elevated lipase no evidence of pancreatitis on CT likely secondary to Mounjaro Type 2 diabetes hold Mounjaro, metformin and glipizide sliding scale insulin diabetic diet Hypertension continue lisinopril Moderate persistent asthma, no acute exacerbation continue home inhalers and montelukast Hyperlipidemia continue statin CKD 3A creatinine at baseline BPPV continue meclizine Morbid obesity BMI 48.4 weight loss encouraged patient on Mounjaro Full code VTE prophylaxis: Pneumoboots pending urology and possible IR consultation Patient with acute pyelonephritis with left perinephric abscess requiring admission overnight for IV antibiotics, fluids and monitoring. Quality Stroke Does the patient have a stroke diagnosis?: No VTE Prior VTE?: No VTE Risk Level:: Medical - moderate - high VTE Device Contraindication: N/A - Device Ordered VTE Drug Contraindication: Treatment Not Indicated
[2025-05-10] MEDS: cefTRIAXone sodium 1 GM VIAL IVPUSH (16:13)
[2025-05-10 16:26] LABS: Glucose, Whole Blood 115 mg/dL (60-115)
[2025-05-10] MEDS: Montelukast Sodium 10 MG TABLET PO (19:18)
[2025-05-10 20:37] LABS: Glucose, Whole Blood 152 mg/dL (60-115)
[2025-05-11 03:58] VITALS: BP 121/64; PULSE 76; RESP 17; TEMP 36.4; O2SAT 92
[2025-05-11 07:19] LABS: Glucose, Whole Blood 123 mg/dL (60-115)
[2025-05-11 07:36] LABS: MANUAL DIFF FLAG NO
[2025-05-11 07:40] VITALS: BP 129/71; PULSE 79; RESP 14; TEMP 36.8; O2SAT 95
[2025-05-11] MEDS: Fluticasone/Vilanterol 200/25 BLST.W.DEV 1 PUFF INHALE (07:41)
[2025-05-11 07:44] VITALS: PULSE 79; RESP 16; O2SAT 96
[2025-05-11 07:47] LABS: Basophils Percent Auto 0.2 % (0-2); Eosinophils Absolute Auto 0.2 X10*3/uL (0.0-0.4); Hematocrit 44.8 % (37.0-47.0); Hemoglobin 13.5 g/dl (12.0-16.0); Imm Gran Abs Auto 0.04 X10*3/uL (0.00-0.03); Imm Gran Pct Auto 0.4 % (0.0-0.4); Lymphocytes Absolute Auto 2.3 X10*3/uL (1.2-4.9); Lymphocytes Percent Auto 24.4 % (20-40); Mean Corpuscular HGB Conc 30.1 g/dl (31.0-35.0); Mean Corpuscular Hemoglobin 23.7 pg (27.0-33.0); Mean Corpuscular Volume 78.6 fL (80.0-98.0); Mean Platelet Volume 9.7 fL (9.4-12.3); Monocytes Absolute Auto 0.4 X10*3/uL (0.1-1.2); Monocytes Percent Auto 4.3 % (2-11); Neutrophils Absolute Auto 6.4 x10*3/uL (2.0-8.3); Neutrophils Percent Auto 68.7 % (45-73); Platelet Count 281 X10*3/uL (160-400); Red Cell Distribution Width 17.9 % (11.0-16.0); White Blood Count 9.3 X10*3/uL (4.8-10.8)
[2025-05-11 07:59] LABS: Anion Gap 11 (12-20); Blood Urea Nitrogen 20 mg/dL (9-16); Carbon Dioxide 25 mmol/L (22-29); Chloride 108 mmol/L (96-108); Creatinine Clr Calc Pharmacy 76.8; Estimated Glomerular Filt Rate 46; Glucose Random 112 mg/dL (60-115); Potassium 4.1 mmol/L (3.3-5.1); Sodium 140 mmol/L (135-145)
[2025-05-11] MEDS: Magnesium Oxide 400 MG TABLET 200 MG PO (08:09)
[2025-05-11] MEDS: Escitalopram Oxalate 20 MG TABLET PO (08:09)
[2025-05-11] MEDS: Meclizine HCl 25 MG TABLET PO (08:09)
[2025-05-11] MEDS: lisinopriL 20 MG TABLET PO (08:09)
[2025-05-11] MEDS: 0.9 % Sodium Chloride Flush 3 ML SYRINGE IVFLUSH ×2 (08:10→16:34)
[2025-05-11 11:19] LABS: Glucose, Whole Blood 153 mg/dL (60-115)
[2025-05-11 11:21] VITALS: BP 132/64; PULSE 83; RESP 16; TEMP 37.1; O2SAT 95
[2025-05-11] MEDS: Insulin Lispro 100 UNIT/ML 3 ML VIAL SUBCUT (12:02)
[2025-05-11] MEDS: Morphine Sulfate 4 MG/ML CARTRIDGE 2 MG IVPUSH (13:47)
[2025-05-11] MEDS: ondansetron HCL 4 MG/2 ML VIAL IVPUSH (13:49)
[2025-05-11] MEDS: cefTRIAXone sodium 1 GM VIAL IVPUSH (14:09)
[2025-05-11 15:45] VITALS: BP 115/55; PULSE 83; RESP 18; TEMP 36.8; O2SAT 95
[2025-05-11 16:16] LABS: Glucose, Whole Blood 114 mg/dL (60-115)
[2025-05-11 20:00] VITALS: BP 119/55; PULSE 79; RESP 17; TEMP 36.9; O2SAT 92
[2025-05-11 20:36] LABS: Glucose, Whole Blood 132 mg/dL (60-115)
[2025-05-11] MEDS: Montelukast Sodium 10 MG TABLET PO (20:46)
[2025-05-12] VITALS: BP 111/55; PULSE 75; RESP 16; TEMP 36.8; O2SAT 94
[2025-05-12 03:48] VITALS: BP 97/54; PULSE 80; RESP 16; TEMP 36.2; O2SAT 90
[2025-05-12 07:20] LABS: Glucose, Whole Blood 111 mg/dL (60-115)
[2025-05-12 07:24] LABS: MANUAL DIFF FLAG NO
[2025-05-12 07:37] LABS: Basophils Percent Auto 0.2 % (0-2); Eosinophils Absolute Auto 0.3 X10*3/uL (0.0-0.4); Eosinophils Percent Auto 3.4 % (0-4); Hematocrit 43.7 % (37.0-47.0); Hemoglobin 13.6 g/dl (12.0-16.0); Imm Gran Abs Auto 0.05 X10*3/uL (0.00-0.03); Imm Gran Pct Auto 0.6 % (0.0-0.4); Lymphocytes Absolute Auto 2.2 X10*3/uL (1.2-4.9); Mean Corpuscular HGB Conc 31.1 g/dl (31.0-35.0); Mean Corpuscular Hemoglobin 24.2 pg (27.0-33.0); Mean Corpuscular Volume 77.6 fL (80.0-98.0); Mean Platelet Volume 9.6 fL (9.4-12.3); Monocytes Absolute Auto 0.4 X10*3/uL (0.1-1.2); Monocytes Percent Auto 4.9 % (2-11); Neutrophils Absolute Auto 5.2 x10*3/uL (2.0-8.3); Neutrophils Percent Auto 63.9 % (45-73); Platelet Count 253 X10*3/uL (160-400); Red Blood Count 5.63 X10*6/uL (4.20-5.50); Red Cell Distribution Width 17.1 % (11.0-16.0); White Blood Count 8.1 X10*3/uL (4.8-10.8)
[2025-05-12 07:44] VITALS: BP 95/52; PULSE 79; RESP 18; TEMP 36.4; O2SAT 93
[2025-05-12 07:49] LABS: Anion Gap 11 (12-20); Blood Urea Nitrogen 22 mg/dL (9-16); Calcium 8.9 mg/dL (8.4-10.2); Carbon Dioxide 25 mmol/L (22-29); Chloride 106 mmol/L (96-108); Creatinine Clr Calc Pharmacy 67.9; Estimated Glomerular Filt Rate 40; Glucose Random 112 mg/dL (60-115); Potassium 4.2 mmol/L (3.3-5.1); Sodium 138 mmol/L (135-145)
[2025-05-12] MEDS: Fluticasone/Vilanterol 200/25 BLST.W.DEV 1 PUFF INHALE (08:06)
[2025-05-12 08:08] VITALS: PULSE 84; RESP 18; O2SAT 94
[2025-05-12] MEDS: Escitalopram Oxalate 20 MG TABLET PO (08:40)
[2025-05-12] MEDS: Meclizine HCl 25 MG TABLET PO (08:40)
[2025-05-12] MEDS: Magnesium Oxide 400 MG TABLET 200 MG PO (08:40)
[2025-05-12] MEDS: 0.9 % Sodium Chloride Flush 3 ML SYRINGE IVFLUSH (08:43)
--- NOTE | 2025-05-12 09:18 | P.DS_ITS ---
DS: Providers Provider Date of Service: 05/12/25 Date of admission: 05/09/25 19:08 Date of discharge: 05/12/25 Primary care physician: Eva Galarza MD Consults: 05/09/25 20:33 Consult to Urology Routine Consulting Provider: Justo Rodríguez Reason for consultation: pyelo, perinephric abscess Has provider been notified: Yes DS: Diagnosis Discharge Diagnosis (1) Morbid obesity: Status: Acute (2) Elevated lipase: Status: Acute (3) Perinephric fluid collection: Status: Acute (4) Perinephric abscess: Status: Acute (5) Pyelonephritis: Status: Acute DS: Summary Hospital Course Hospital Course: Admission note HPI Patient is a 54-year-old female with a past medical history significant for kidney stones (staghorn stone requiring stent placement), left subcapsular hematoma, left perinephric abscess with CHARLENE drain 07/16, type 2 diabetes, hypertension, moderate persistent asthma, hyperlipidemia, morbid obesity, stage 3A CKD, TRUPTI (no CPAP) and BPPV, who presented to the ED due to lower abdominal pain and diarrhea for the past week. She reports 1 episode of vomiting while in the ED. She has had episodes of belching and decreased appetite. The patient reports that she felt very similar in the past when she had the infected kidney stone and perinephric abscess. Her urine has had a fishy odor, no vaginal discharge. She denies any dysuria, frequency or urgency different from her normal urinary baseline. Her lower abdominal pain is mostly in the left lower quadrant and she rates it about a 3/10. Hospital course Pyelonephritis with perinephric abscess and left-sided kidney stone as abdominopelvic CT with findings concerning for left-sided pyelonephritis with possible small ill-defined subcapsular abscess. Nonobstructive left renal calculi largest measuring 1.4 cm in the UPJ. blood cultures remained negative. Urology suggested IV Antibiotics during hospital stay, to finish 2 weeks total of Abx and keep on suppressive therapy of Vitamin C 1 gm and Methenamine 1 gm bid after that. To follow with Urology as outpatient. Discharge plan Continue Ceftin for 10 more days Stay well hydrated Follow with Dr Bonilla as outpatient for further management Time Attestation Discharge Coordination Time (in mins): 41 Quality: Safe Use of Opioids Does Pt have an Active Cancer Diagnosis on the Problem List?: No Quality: Stroke Does the patient have a stroke diagnosis?: No Physical Exam Vital Signs: Vital Signs: Last Vital Signs Temp 97.6 F 05/12/25 07:44 Pulse 84 05/12/25 08:08 Resp 18 05/12/25 08:08 BP 95/52 L 05/12/25 07:44 Pulse Ox 93 05/12/25 07:44 O2 Del Method Room Air 05/12/25 07:44 BMI result Body Mass Index 50.5 Const: Other: Constitutional : Awake, interactive, not in distress Neck : Normal inspection, Supple Cardiovascular : RRR, no JVP, no lower extremity edema Respiratory : good bilateral air entry, no crackles, wheezes or rhonchi Gastrointestinal: soft, lax, Normal bowel sounds, no tenderness, no Lt CVA Skin : Warm, Dry Neurological : Alert & oriented x3, No focal deficit DS: Data Data Completed and Pending Completed studies during hospitalization [Text1]: Procedures Dilation of Left Ureter with Intraluminal Device, Via Natural or Artificial Opening Endoscopic (03/02/24) Drainage of Retroperitoneum, Percutaneous Approach (05/23/24) Fluoroscopy of Left Kidney, Ureter and Bladder (03/02/24) Revision of Drainage Device in Retroperitoneum, Percutaneous Approach (06/25/24) Labs on day of discharge: Laboratory Results - last 24 hr 05/11/25 05/11/25 05/11/25 11:15 16:12 20:32 WBC RBC Hgb Hct MCV MCH MCHC RDW Plt Count MPV Immature Gran % (Auto) Neut % (Auto) Lymph % (Auto) [place] % (Auto) Eos % (Auto) Baso % (Auto) Lymph # (Auto) [place] # (Auto) Eos # (Auto) Baso # (Auto) Abs Immat Gran (auto) Absolute Neuts (auto) Absolute Nucleated RBC Nucleated RBC % (auto) Sodium Potassium Chloride Carbon Dioxide Anion Gap BUN Creatinine Estim Creat Clear Calc Estimated GFR POC Glucose 153 H 114 132 H Random Glucose Calcium 05/12/25 05/12/25 05/12/25 06:43 06:44 07:15 WBC 8.1 RBC 5.63 H Hgb 13.6 Hct 43.7 MCV 77.6 L MCH 24.2 L MCHC 31.1 RDW 17.1 H Plt Count 253 MPV 9.6 Immature Gran % (Auto) 0.6 H Neut % (Auto) 63.9 Lymph % (Auto) 27.0 [place] % (Auto) 4.9 Eos % (Auto) 3.4 Baso % (Auto) 0.2 Lymph # (Auto) 2.2 [place] # (Auto) 0.4 Eos # (Auto) 0.3 Baso # (Auto) 0.0 Abs Immat Gran (auto) 0.05 H Absolute Neuts (auto) 5.2 Absolute Nucleated RBC 0.000 Nucleated RBC % (auto) 0.0 Sodium 138 Potassium 4.2 Chloride 106 Carbon Dioxide 25 Anion Gap 11 L BUN 22 H Creatinine 1.38 Estim Creat Clear Calc 67.9 Estimated GFR 40 POC Glucose 111 Random Glucose 112 Calcium 8.9 Preliminary micro results at discharge 05/09/25 14:32 Blood Culture - Preliminary Blood - Venous No growth after 48 hours. 05/09/25 13:29 Blood Culture - Preliminary Blood - Venous No growth after 48 hours. 05/09/25 Unknown Urine Culture - Preliminary Urine clean catch - Clean Catch Midstream Culture in progress. Imaging CT scan - abdomen: Radiologist's impression: IMPRESSION: 1. Findings concerning for left-sided pyelonephritis with possible small ill-defined subcapsular abscess. 2. Nonobstructive left renal calculi largest measuring 1.4 cm in the ureteropelvic junction. Discharge Plan Discharge Anticipated Discharge Date/Time: 05/12/25 09:06 Patient Disposition: Home, Self-Care Discharge Diagnosis: Pyelonephritis, perinephric abscess Referrals: Eva Galarza MD [Primary Care Provider, Internal Medicine] - 1 Week Discharge Medications: New methenamine hippurate 1 gram tablet 1 g PO BID Qty: 60 0RF Rx Instructions: After finishing the Ceftin ascorbic acid (vitamin C) 1,000 mg capsule 1 g PO DAILY Qty: 90 0RF cefuroxime axetil 500 mg tablet 500 mg PO BID Qty: 20 0RF Continued budesonide-formoterol [Symbicort] 160-4.5 mcg/actuation HFA aerosol inhaler 2 puff inhalation BID montelukast 10 mg tablet 10 mg PO BEDTIME norethindrone acetate 5 mg tablet 5 mg PO Q48H magnesium 250 mg tablet 250 mg PO DAILY Qty: 10 0RF glipizide 10 mg tablet extended release 24hr 10 mg PO DAILY metformin 1,000 mg tablet 1,000 mg PO BID Mounjaro 10 mg/0.5 mL pen injector 10 mg subcut RAMON cranberry extract 425 mg capsule 425 mg PO BID Qty: 60 5RF Rx Instructions: administer with meals albuterol sulfate [Ventolin HFA] 90 mcg/actuation HFA aerosol inhaler 2 puff inhalation Q6H PRN (Reason: Shortness Of Breath Or Wheezing) meclizine 25 mg tablet 25 mg PO DAILY citalopram 40 mg tablet 40 mg PO DAILY simvastatin 40 mg tablet 40 mg PO BEDTIME lisinopril 20 mg tablet 20 mg PO DAILY Discharge Orders: Discharge Order (Routine); Ordered 05/12/25 Ordered By: Sunday Hagan Diet: Advance to usual diet Activity on Discharge: As tolerated Stand Alone Forms: Patient Portal Discharge page, Work/School Release Print Language: Frisian Care Plan Goals: Continue Ceftin for 10 more days Stay well hydrated Follow with Dr Bonilla as outpatient for further management Come back to the hospital for any worsening pain, fever Health Concerns: Pyelonephritis Plan of Treatment: Ceftin Urology Assessment: as above Discharge Date/Time: 05/12/25 11:56
--- NOTE | 2025-05-12 09:18 | MHC.CM.PN ---
Patient has been medically cleared for dc to home today, self care.
== END 2025-05-12 11:56 | disposition home or self-care (01) | DRG 463 ==
LOC: HO.ED 18:56 → HO.EDOVER 19:38 → HO.IMC 22:54
PROVIDERS: Physician Assistant; Admitting Provider Student in an Organized Health Care Education/Training Program; Emergency Provider Emergency Medicine; PCP Internal Medicine; Visit Provider Student in an Organized Health Care Education/Training Program
DX: N10 Acute pyelonephritis (principal); E11.22 Type 2 diabetes mellitus with diabetic chronic kidney disease; N20.0 Calculus of kidney; I12.9 Hypertensive chronic kidney disease with stage 1 through stage 4 chronic kidney disease, or unspecified chronic kidney disease; N18.30 Chronic kidney disease, stage 3 unspecified; N15.1 Renal and perinephric abscess; J45.40 Moderate persistent asthma, uncomplicated; E78.5 Hyperlipidemia, unspecified; E66.01 Morbid (severe) obesity due to excess calories; Z68.42 Body mass index [BMI] 45.0-49.9, adult; Z71.3 Dietary counseling and surveillance; Z87.442 Personal history of urinary calculi; Z79.84 Long term (current) use of oral hypoglycemic drugs; Z79.899 Other long term (current) drug therapy
CPT/HCPCS: 36415; 74177; 80048; 80053; 81001; 82947; 83605; 83690; 85025; 87040; 87086; 93005; 99285; J0696; J1308; J2270; J2405; J2470; J7120; Q9967

== ENCOUNTER → 2025-05-09 12:54 | Outpatient (BNV) | payer OTHER, SELFPAY | PROVIDERS: Admitting Provider Student in an Organized Health Care Education/Training Program; Emergency Provider Emergency Medicine; PCP Internal Medicine; Visit Provider Internal Medicine Cardiovascular Disease | DX: I45.10 Unspecified right bundle-branch block (principal); I44.4 Left anterior fascicular block | CPT/HCPCS: 93010 ==

== ENCOUNTER → 2025-05-09 14:12 | Outpatient (BNV) | payer OTHER, SELFPAY | PROVIDERS: Emergency Provider Emergency Medicine; PCP Internal Medicine; Visit Provider Radiology Diagnostic Radiology | DX: N15.1 Renal and perinephric abscess (principal) | CPT/HCPCS: 74177 ==

== ENCOUNTER → 2025-05-09 19:08 | Outpatient (BNV) | payer OTHER, SELFPAY | PROVIDERS: Admitting Provider Student in an Organized Health Care Education/Training Program; Emergency Provider Emergency Medicine; PCP Internal Medicine; Visit Provider Urology | DX: N20.0 Calculus of kidney (principal) | CPT/HCPCS: 99254 ==

== ENCOUNTER → 2025-05-09 19:08 | Outpatient (BNV) | payer OTHER, SELFPAY | PROVIDERS: Admitting Provider Student in an Organized Health Care Education/Training Program; Emergency Provider Emergency Medicine; PCP Internal Medicine; Visit Provider Student in an Organized Health Care Education/Training Program | DX: E66.01 Morbid (severe) obesity due to excess calories (principal); R74.8 Abnormal levels of other serum enzymes; N28.89 Other specified disorders of kidney and ureter; N15.1 Renal and perinephric abscess; N12 Tubulo-interstitial nephritis, not specified as acute or chronic; N20.0 Calculus of kidney | CPT/HCPCS: 99223; 99239 ==